=== PATIENT | male | born 1985 | race African-American/Black ===

== ENCOUNTER 2017-06-15 20:27 | Inpatient (IN) | payer OTHER ==
[~2017-06-15] VITALS: Ht 167.6 cm; Wt 54.4 kg
[~2017-06-15 20:27] MED LIST: Amiodarone 150mg/ml 3ml Amp ONE; Atropine Inj 1mg/10ml Syr ONE
[2017-06-15 20:30] VITALS: BP 147/98
[2017-06-15 20:54] LABS: HEMATOCRIT 53.5 % (42.0-52.0); HEMOGLOBIN 16.4 G/DL (14.2-18.0); MEAN CORPUSCULAR VOLUME 101 FL (80-99); PLATELET COUNT 309 K/UL (150-450); RED BLOOD COUNT 5.28 M/UL (4.70-6.10); RED CELL DISTRIBUTION WIDTH 10.9 % (11.6-14.8); WHITE BLOOD COUNT 15.6 K/UL (4.8-10.8)
[2017-06-15 21:04] LABS: INR 0.9 (0.9-1.1)
[2017-06-15 21:15] LABS: ALANINE AMINOTRANSFERASE 56 U/L (12-78); ALBUMIN 3.4 G/DL (3.4-5.0); ALBUMIN/GLOBULIN RATIO 0.9 (1.0-2.7); ALKALINE PHOSPHATASE 106 U/L (46-116); ASPARTATE AMINO TRANSFERASE 38 U/L (15-37); BILIRUBIN,TOTAL 0.6 MG/DL (0.2-1.0); BLOOD UREA NITROGEN 72 mg/dL (7-18); CALCIUM 8.5 MG/DL (8.5-10.1); CHLORIDE 81 MMOL/L (98-107); CKMB 3.5 NG/ML (0.0-3.6); CREATINE KINASE 266 U/L (26-308); CREATININE 2.7 MG/DL (0.55-1.30)
[2017-06-15 21:18] LABS: POTASSIUM 6.2 MMOL/L (3.5-5.1); SODIUM 119 MMOL/L (136-145)
[2017-06-15 21:19] LABS: CARBON DIOXIDE < 5 MMOL/L (21-32)
[2017-06-15 22:35] VITALS: BP 130/87
[2017-06-15] MEDS ORDERED: Azithromycin 500 MG in D5W 275 ML IVPB ONE (23:00)
[2017-06-15] MEDS ORDERED: cefTRIAXone 1 GM in NS 55 ML IVPB ONE (23:00)
[2017-06-16] VITALS (16 sets, daily range): BP systolic 82–144; BP diastolic 43–98
[2017-06-16 00:17] LABS: BILIRUBIN, URINE NEGATIVE (NEGATIVE); COLOR,URINE PALE YELLOW; GLUCOSE, URINE (UA) 4+ (NEGATIVE); KETONES,URINE 4+ (NEGATIVE); LEUKOCYTE ESTERASE ,URINE NEGATIVE (NEGATIVE); NITRITE,URINE NEGATIVE (NEGATIVE); PH,URINE 5 (4.5-8.0); PROTEIN,URINE 2+ (NEGATIVE); UROBILINOGEN,URINE NORMAL MG/DL (0.0-1.0)
[2017-06-16 00:36] LABS: APPEARANCE,URINE CLEAR
[2017-06-16] MEDS ORDERED: Morphine Sulfate 2mg/ml Inj IVP PRN ×2 (01:00→17:00)
[2017-06-16 01:05] LABS: ANION GAP 28 mmol/L (5-15); BLOOD UREA NITROGEN 69 mg/dL (7-18); CALCIUM 7.5 MG/DL (8.5-10.1); CHLORIDE 97 MMOL/L (98-107); CREATININE 2.4 MG/DL (0.55-1.30); POTASSIUM 5.4 MMOL/L (3.5-5.1); SODIUM 131 MMOL/L (136-145)
[2017-06-16 01:06] LABS: CARBON DIOXIDE 6 MMOL/L (21-32)
[2017-06-16] MEDS ORDERED: D5W 275ml ONE (01:15)
[2017-06-16] MEDS ORDERED: Azithromycin 500mg Inj IV ONE (01:15)
[2017-06-16] MEDS ORDERED: NS 55ml IV ONE (01:15)
--- NOTE | 2017-06-16 01:17 | Emergency Room Report ---
History of Present Illness General Chief Complaint: Abnormal Labs Source: Patient Present Illness HPI Patient presents emergency department today with weakness altered mental status and tachypnea. According to patient's family patient has a history of free diabetes. Otherwise there were no further history available. Patient apparently watches cars. Patient was noted to be very weak and not getting out of bed and very confused today. Patient was tachypnea. Paramedics were contacted and discovered the patient's sugar was critical high. Patient was started on fluid bolus.No other modifying factors. No other associated signs and symptoms. No other complaints were noted. Allergies: Coded Allergies: No Known Allergies (Unverified , 06/15/17) Patient History Past Medical History: none Past Surgical History: none Pertinent Family History: none Social History: Denies: smoking, alcohol use, drug use Reviewed Nursing Documentation: PMH: Agreed, PSxH: Agreed Nursing Documentation-PMH Past Medical History: No Stated History Review of Systems All Other Systems: negative except mentioned in HPI Physical Exam Vital Signs Date Time Temp Pulse Resp B/P (MAP) Pulse Ox O2 Delivery O2 Flow Rate FiO2 06/15/17 20:10 68 18 135/68 97 06/15/17 20:30 95.6 Room Air Sp02 EP Interpretation: reviewed, normal General Appearance: alert, severe distress, thin Head: atraumatic Eyes: bilateral eye normal inspection ENT: normal ENT inspection, hearing grossly normal, normal voice Neck: normal inspection, full range of motion, supple, no bony tend Respiratory: respiratory distress, decreased breath sounds, accessory muscle use Cardiovascular #1: no edema, tachycardia Gastrointestinal: normal inspection, normal bowel sounds, non tender, soft, no guarding, no hernia Genitourinary: no CVA tenderness Musculoskeletal: normal inspection, back normal, normal range of motion Neurologic: alert, responsive, other - slightly confused Psychiatric: normal inspection, judgement/insight normal, depressed affect Skin: normal inspection, normal color, no rash Procedures Critical Care Time Critical Care Time Patient had a critical medical condition which untreated could potentially result in life or limb threatening injury. Total critical care time excluding procedures was approximately 65 minutes. Medical Decision Making Diagnostic Impression: Primary Impression: DKA (diabetic ketoacidosis) Additional Impressions: Hyponatremia Respiratory distress Fever Pancreatitis Pneumonia Acidosis Elevated troponin ER Course Patient presents emergency department today with altered mental status elevated glucose and hyponatremia. Differential until diagnoses include pneumonia, DKA, severe acidosis, sepsis just to name a few. Patient laboratory workup shows severe DKA. Patient also had a fever therefore blood cultures were obtained patient start IV antibiotics. Patient's lactic acid level was negative. However because the patient's presentation patient receive 4 L normal saline bolus. Patient was also started on insulin drip. Case was discussed with Dr. Shekhar easley for admission to the intensive care unit. Patient's repeat chemistry show that the glucose is improving slowly. Labs Test 06/15/17 20:35 06/15/17 20:42 06/15/17 23:05 06/16/17 00:15 White Blood Count 15.6 K/UL (4.8-10.8) Red Blood Count 5.28 M/UL (4.70-6.10) Hemoglobin 16.4 G/DL (14.2-18.0) Hematocrit 53.5 % (42.0-52.0) Mean Corpuscular Volume 101 FL (80-99) Mean Corpuscular Hemoglobin 31.0 PG (27.0-31.0) Mean Corpuscular Hemoglobin Concent 30.6 G/DL (32.0-36.0) Red Cell Distribution Width 10.9 % (11.6-14.8) Platelet Count 309 K/UL (150-450) Mean Platelet Volume 7.0 FL (6.5-10.1) Neutrophils (%) (Auto) % (45.0-75.0) Lymphocytes (%) (Auto) % (20.0-45.0) Monocytes (%) (Auto) % (1.0-10.0) Eosinophils (%) (Auto) % (0.0-3.0) Basophils (%) (Auto) % (0.0-2.0) Differential Total Cells Counted 100 Neutrophils % (Manual) 85 % (45-75) Lymphocytes % (Manual) 10 % (20-45) Monocytes % (Manual) 3 % (1-10) Eosinophils % (Manual) 0 % (0-3) Basophils % (Manual) 0 % (0-2) Band Neutrophils 2 % (0-8) Nucleated Red Blood Cells 1 /100 WBC Platelet Estimate Adequate Platelet Morphology Normal Prothrombin Time 9.7 SEC (9.30-11.50) Prothromb Time International Ratio 0.9 (0.9-1.1) Activated Partial Thromboplast Time 33 SEC (23-33) Sodium Level 119 MMOL/L (136-145) 131 MMOL/L (136-145) Potassium Level 6.2 MMOL/L (3.5-5.1) 5.4 MMOL/L (3.5-5.1) Chloride Level 81 MMOL/L (98-107) 97 MMOL/L (98-107) Carbon Dioxide Level < 5 MMOL/L (21-32) 6 MMOL/L (21-32) Blood Urea Nitrogen 72 mg/dL (7-18) 69 mg/dL (7-18) Creatinine 2.7 MG/DL (0.55-1.30) 2.4 MG/DL (0.55-1.30) Estimat Glomerular Filtration Rate 27.9 mL/min (>60) 38.7 mL/min (>60) Glucose Level 1062 MG/DL (74-106) 725 MG/DL (74-106) Calcium Level 8.5 MG/DL (8.5-10.1) 7.5 MG/DL (8.5-10.1) Total Bilirubin 0.6 MG/DL (0.2-1.0) Aspartate Amino Transf (AST/SGOT) 38 U/L (15-37) Alanine Aminotransferase (ALT/SGPT) 56 U/L (12-78) Alkaline Phosphatase 106 U/L (46-116) Total Creatine Kinase 266 U/L (26-308) Creatine Kinase MB 3.5 NG/ML (0.0-3.6) Creatine Kinase MB Relative Index 1.3 Troponin I 0.076 ng/mL (0.000-0.056) Total Protein 7.4 G/DL (6.4-8.2) Albumin 3.4 G/DL (3.4-5.0) Globulin 4.0 g/dL Albumin/Globulin Ratio 0.9 (1.0-2.7) Lipase 4514 U/L (73-393) Urine Color Pale yellow Urine Appearance Clear Urine pH 5 (4.5-8.0) Urine Specific [place] 1.015 (1.005-1.035) Urine Protein 2+ (NEGATIVE) Urine Glucose (UA) 4+ (NEGATIVE) Urine Ketones 4+ (NEGATIVE) Urine Occult Blood 1+ (NEGATIVE) Urine Nitrite Negative (NEGATIVE) Urine Bilirubin Negative (NEGATIVE) Urine Urobilinogen Normal MG/DL (0.0-1.0) Urine Leukocyte Esterase Negative (NEGATIVE) Urine RBC 0-2 /HPF (0 - 0) Urine WBC 0-2 /HPF (0 - 0) Urine Squamous Epithelial Cells Occasional /LPF Urine Bacteria None /HPF (NONE) Urine Hyaline Casts 0-2 /LPF (NONE) Urine Coarse Granular Casts 0-2 /LPF (NONE) Urine Opiates Screen Negative (NEGATIVE) Urine Barbiturates Screen Negative (NEGATIVE) Phencyclidine (PCP) Screen Negative (NEGATIVE) Urine Amphetamines Screen Negative (NEGATIVE) Urine Benzodiazepines Screen Negative (NEGATIVE) Urine Cocaine Screen Negative (NEGATIVE) Urine Marijuana (THC) Screen Positive (NEGATIVE) Anion Gap 28 mmol/L (5-15) Lactic Acid Level 0.90 mmol/L (0.66-2.22) EKG Diagnostic Results Rate: normal Rhythm: NSR ST Segments: no acute changes Rhythm Strip Diag. Results EP Interpretation: yes Rate: 88 Rhythm: NSR, no PVC's, no ectopy Chest X-Ray Diagnostic Results Chest X-Ray Diagnostic Results : Chest X-Ray Ordered: Yes # of Views/Limited/Complete: 1 View Indication: Shortness of Breath EP Interpretation: Yes Interpretation: no effusion, no pneumothorax, other - bilateral infiltrate Impression: Other - pneumonia Electronically Signed by: Electronically signed by Marvin Fernandez MD Last Vital Signs Date Time Temp Pulse Resp B/P (MAP) Pulse Ox O2 Delivery O2 Flow Rate FiO2 06/15/17 20:30 95.6 87 17 147/98 99 Room Air Status: improved Disposition: ADMITTED INPATIENT Condition: Critical Referrals: NOT CHOSEN IPA/,REFERRING (PCP) MARVIN FERNANDEZ M.D. Jun 16, 2017 01:17
[2017-06-16] MEDS ORDERED: NS w/KCl 20mEq 1,000 ML IV SCH (02:30)
[2017-06-16] MEDS ORDERED: NKM (03:46)
[2017-06-16 05:06] LABS: ANION GAP 25 mmol/L (5-15); BLOOD UREA NITROGEN 63 mg/dL (7-18); CALCIUM 6.9 MG/DL (8.5-10.1); CHLORIDE 105 MMOL/L (98-107); POTASSIUM 4.2 MMOL/L (3.5-5.1); SODIUM 137 MMOL/L (136-145)
[2017-06-16 05:11] LABS: ALANINE AMINOTRANSFERASE 47 U/L (12-78); ALBUMIN 2.6 G/DL (3.4-5.0); ALBUMIN/GLOBULIN RATIO 0.8 (1.0-2.7); ALKALINE PHOSPHATASE 75 U/L (46-116); ASPARTATE AMINO TRANSFERASE 46 U/L (15-37); BILIRUBIN,TOTAL 0.3 MG/DL (0.2-1.0)
[2017-06-16 05:12] LABS: CARBON DIOXIDE 7 MMOL/L (21-32)
[2017-06-16 07:46] LABS: ANION GAP 21 mmol/L (5-15); BLOOD UREA NITROGEN 61 mg/dL (7-18); CALCIUM 7.2 MG/DL (8.5-10.1); CARBON DIOXIDE 11 MMOL/L (21-32); CHLORIDE 109 MMOL/L (98-107); CREATININE 1.9 MG/DL (0.55-1.30); POTASSIUM 4.2 MMOL/L (3.5-5.1); SODIUM 141 MMOL/L (136-145)
[2017-06-16 07:51] LABS: ALANINE AMINOTRANSFERASE 47 U/L (12-78); ALBUMIN 2.7 G/DL (3.4-5.0); ALBUMIN/GLOBULIN RATIO 0.8 (1.0-2.7); ALKALINE PHOSPHATASE 71 U/L (46-116); ASPARTATE AMINO TRANSFERASE 45 U/L (15-37); BILIRUBIN,TOTAL 0.3 MG/DL (0.2-1.0)
--- NOTE | 2017-06-16 08:10 | Emergency Room Report ---
History of Present Illness General Chief Complaint: Abnormal Labs Source: Family Member Present Illness Allergies: Coded Allergies: No Known Allergies (Unverified , 06/15/17) Nursing Documentation-[facility] Past Medical History: No History, Except For Physical Exam Vital Signs Date Time Temp Pulse Resp B/P (MAP) Pulse Ox O2 Delivery O2 Flow Rate FiO2 06/15/17 20:10 68 18 135/68 97 06/15/17 20:30 95.6 Room Air Procedures Critical Care Time Critical Care Time CC time 40min Critical care time endorsed for this patient for DKA and continued management while boarding in the ER. Critical care time includes review of laboratory tests, imaging, review of EMR, review of paperwork from SNF (if available), discussion with patient and family (if available), review of code status/POLS (if available). Critical care time also likely includes assessment of fluid status, stabilization of vital signs, selection and dosing of appropriate antibiotics, selection and dosing of Aspirin/Plavix/Heparin/Lovenox, discussion with PMD/ attending hospitalist/line decorator. Critical care time does not include any procedures which are documented elsewhere in this EMR. Medical Decision Making Diagnostic Impression: Primary Impression: DKA (diabetic ketoacidosis) Additional Impressions: Fever Acidosis Respiratory distress Hyponatremia Pancreatitis Elevated troponin Pneumonia ER Course Received signout from Dr Meza at 630am Repeated CMP and ABG Glucose downtrending from 473 to 264 AG from 25 to 21 On repeat ABG: pH improved from 6.8 to 7.28. AG closing from 25 to 21. Insulin gtt discontinued IVF continued Patient tolerating PO Downgraded to tele Informed Dr Godinez and YAHIR Pillai at 922am Last Vital Signs Date Time Temp Pulse Resp B/P (MAP) Pulse Ox O2 Delivery O2 Flow Rate FiO2 06/16/17 07:30 97.6 111 41 139/91 100 Room Air Status: improved Disposition: ADMITTED INPATIENT Condition: Serious Referrals: NOT CHOSEN IPA/,REFERRING (PCP) EJ FREED M.D. Jun 16, 2017 08:10
[2017-06-16] MEDS ORDERED: LORazepam Inj 2mg/ml 1ml IV ONE (09:45)
[2017-06-16] MEDS ORDERED: Haloperidol 5mg/ml Inj IM ONE (11:30)
--- NOTE | 2017-06-16 12:22 | History and Physical ---
History of Present Illness General Date patient seen: Jun 16, 2017 Reason for Hospitalization: Abnormal Labs Present Illness HPI 32 y/o male with PMH for borderline DM who presented to the ED with AMS. Patient is altered and unable to give me history. Patient's mother and brother at bedside states that he was not feeling well 2 days ago. Called paramedics but then was sent home. Now he presents back in DKA with BG over 1000. Patient is agitated and having severe chills. In the ED, patient was placed on insulin drip. He was also noted to be hyponatremic. Labs look better today but patient is still lethargic and having chills. Patient's lipase levels also profoundly elevated. Mother unable to tell me if recent EtOH use. He does occasionally drink EtOH and use marijuana. Allergies: Coded Allergies: No Known Allergies (Unverified , 06/15/17) Medication History Scheduled No Known Medications* (NKM - No Known Medications*), 0 ., (Reported) Patient History History Provided By: Family Member, Medical Record Healthcare decision maker Resuscitation status Advanced Directive on File Review of Systems ROS Narrative unable to obtain given patient's condition. Physical Exam General Appearance: WD/WN, confused, moderate distress, agitated HEENT: normocephalic, atraumatic Respiratory/Chest: lungs clear Cardiovascular/Chest: tachycardia Abdomen: non tender, soft Extremities: no edema Neurologic: disoriented Last 24 Hour Vital Signs Date Time Temp Pulse Resp B/P (MAP) Pulse Ox O2 Delivery O2 Flow Rate FiO2 06/16/17 10:52 119 21 124/68 100 Room Air 06/16/17 09:00 109 33 141/87 100 Room Air 06/16/17 07:30 97.6 111 41 139/91 100 Room Air 06/16/17 06:50 97.6 103 36 144/95 100 Room Air 06/16/17 05:15 97.8 105 39 118/80 99 Room Air 06/16/17 04:20 99 35 120/68 100 Room Air 06/16/17 02:20 100 36 111/64 100 Room Air 06/16/17 00:10 97.6 89 34 120/98 99 Room Air 06/15/17 22:35 90 35 130/87 100 Room Air 06/15/17 20:30 95.6 87 17 147/98 99 Room Air 06/15/17 20:10 68 18 135/68 97 Intake and Output 06/15/17 06/16/17 19:00 07:00 Intake Total 4325 ml Output Total 1300 ml Balance 3025 ml Intake IV Total 4325 ml Output Urine Total 1300 ml Laboratory Tests Test 06/15/17 20:35 06/15/17 20:42 06/15/17 23:05 06/16/17 00:15 White Blood Count 15.6 K/UL (4.8-10.8) H Red Blood Count 5.28 M/UL (4.70-6.10) Hemoglobin 16.4 G/DL (14.2-18.0) Hematocrit 53.5 % (42.0-52.0) H Mean Corpuscular Volume 101 FL (80-99) H Mean Corpuscular Hemoglobin 31.0 PG (27.0-31.0) Mean Corpuscular Hemoglobin Concent 30.6 G/DL (32.0-36.0) L Red Cell Distribution Width 10.9 % (11.6-14.8) L Platelet Count 309 K/UL (150-450) Mean Platelet Volume 7.0 FL (6.5-10.1) Neutrophils (%) (Auto) % (45.0-75.0) Lymphocytes (%) (Auto) % (20.0-45.0) Monocytes (%) (Auto) % (1.0-10.0) Eosinophils (%) (Auto) % (0.0-3.0) Basophils (%) (Auto) % (0.0-2.0) Differential Total Cells Counted 100 Neutrophils % (Manual) 85 % (45-75) H Lymphocytes % (Manual) 10 % (20-45) L Monocytes % (Manual) 3 % (1-10) Eosinophils % (Manual) 0 % (0-3) Basophils % (Manual) 0 % (0-2) Band Neutrophils 2 % (0-8) Nucleated Red Blood Cells 1 /100 WBC Platelet Estimate Adequate Platelet Morphology Normal Prothrombin Time 9.7 SEC (9.30-11.50) Prothromb Time International Ratio 0.9 (0.9-1.1) Activated Partial Thromboplast Time 33 SEC (23-33) Sodium Level 119 MMOL/L (136-145) *L 131 MMOL/L (136-145) #L Potassium Level 6.2 MMOL/L (3.5-5.1) *H 5.4 MMOL/L (3.5-5.1) H Chloride Level 81 MMOL/L (98-107) L 97 MMOL/L (98-107) L Carbon Dioxide Level < 5 MMOL/L (21-32) *L 6 MMOL/L (21-32) *L Blood Urea Nitrogen 72 mg/dL (7-18) H 69 mg/dL (7-18) H Creatinine 2.7 MG/DL (0.55-1.30) H 2.4 MG/DL (0.55-1.30) H Estimat Glomerular Filtration Rate 27.9 mL/min (>60) 38.7 mL/min (>60) Glucose Level 1062 MG/DL (74-106) *H 725 MG/DL (74-106) #*H Calcium Level 8.5 MG/DL (8.5-10.1) 7.5 MG/DL (8.5-10.1) L Total Bilirubin 0.6 MG/DL (0.2-1.0) Aspartate Amino Transf (AST/SGOT) 38 U/L (15-37) H Alanine Aminotransferase (ALT/SGPT) 56 U/L (12-78) Alkaline Phosphatase 106 U/L (46-116) Total Creatine Kinase 266 U/L (26-308) Creatine Kinase MB 3.5 NG/ML (0.0-3.6) Creatine Kinase MB Relative Index 1.3 Troponin I 0.076 ng/mL (0.000-0.056) Total Protein 7.4 G/DL (6.4-8.2) Albumin 3.4 G/DL (3.4-5.0) Globulin 4.0 g/dL Albumin/Globulin Ratio 0.9 (1.0-2.7) L Lipase 4514 U/L (73-393) H Venous Blood pH Pending Venous Blood Partial Pressure CO2 Pending Venous Blood Partial Pressure O2 Pending Venous Blood HCO3 Pending Venous Blood Total Carbon Dioxide Pending Venous Bld O2 Saturation (Measured) Pending Venous Blood Oxygen Saturation Pending Venous Blood Base Excess Pending Methemoglobin Pending Sodium (Blood Gas) Pending Urine Color Pale yellow Urine Appearance Clear Urine pH 5 (4.5-8.0) Urine Specific [place] 1.015 (1.005-1.035) Urine Protein 2+ (NEGATIVE) H Urine Glucose (UA) 4+ (NEGATIVE) H Urine Ketones 4+ (NEGATIVE) H Urine Occult Blood 1+ (NEGATIVE) H Urine Nitrite Negative (NEGATIVE) Urine Bilirubin Negative (NEGATIVE) Urine Urobilinogen Normal MG/DL (0.0-1.0) Urine Leukocyte Esterase Negative (NEGATIVE) Urine RBC 0-2 /HPF (0 - 0) H Urine WBC 0-2 /HPF (0 - 0) Urine Squamous Epithelial Cells Occasional /LPF Urine Bacteria None /HPF (NONE) Urine Hyaline Casts 0-2 /LPF (NONE) H Urine Coarse Granular Casts 0-2 /LPF (NONE) H Urine Opiates Screen Negative (NEGATIVE) Urine Barbiturates Screen Negative (NEGATIVE) Phencyclidine (PCP) Screen Negative (NEGATIVE) Urine Amphetamines Screen Negative (NEGATIVE) Urine Benzodiazepines Screen Negative (NEGATIVE) Urine Cocaine Screen Negative (NEGATIVE) Urine Marijuana (THC) Screen Positive (NEGATIVE) H Anion Gap 28 mmol/L (5-15) H Lactic Acid Level 0.90 mmol/L (0.66-2.22) Test 06/16/17 00:37 06/16/17 01:43 06/16/17 04:09 06/16/17 07:20 Venous Blood pH Pending Venous Blood Partial Pressure CO2 Pending Venous Blood Partial Pressure O2 Pending Venous Blood HCO3 Pending Venous Blood Total Carbon Dioxide Pending Venous Bld O2 Saturation (Measured) Pending Venous Blood Oxygen Saturation Pending Venous Blood Base Excess Pending Methemoglobin Pending Sodium (Blood Gas) Pending Arterial Blood pH 6.837 (7.350-7.450) Arterial Blood Partial Pressure CO2 24.6 mmHg (35.0-45.0) *L Arterial Blood Partial Pressure O2 34.2 mmHg (75.0-100.0) Arterial Blood HCO3 4.1 mmol/L (22.0-26.0) L Arterial Blood Oxygen Saturation 59.2 % (92.0-98.0) L Arterial Blood Base Excess -29.5 Juanito Test Positive Sodium Level 137 MMOL/L (136-145) 141 MMOL/L (136-145) Potassium Level 4.2 MMOL/L (3.5-5.1) 4.2 MMOL/L (3.5-5.1) Chloride Level 105 MMOL/L (98-107) 109 MMOL/L (98-107) H Carbon Dioxide Level 7 MMOL/L (21-32) *L 11 MMOL/L (21-32) L Anion Gap 25 mmol/L (5-15) H 21 mmol/L (5-15) H Blood Urea Nitrogen 63 mg/dL (7-18) H 61 mg/dL (7-18) H Creatinine 2.0 MG/DL (0.55-1.30) H 1.9 MG/DL (0.55-1.30) H Estimat Glomerular Filtration Rate 47.8 mL/min (>60) 50.7 mL/min (>60) Glucose Level 473 MG/DL (74-106) #H 264 MG/DL (74-106) #H Calcium Level 6.9 MG/DL (8.5-10.1) L 7.2 MG/DL (8.5-10.1) L Total Bilirubin 0.3 MG/DL (0.2-1.0) 0.3 MG/DL (0.2-1.0) Aspartate Amino Transf (AST/SGOT) 46 U/L (15-37) H 45 U/L (15-37) H Alanine Aminotransferase (ALT/SGPT) 47 U/L (12-78) 47 U/L (12-78) Alkaline Phosphatase 75 U/L (46-116) 71 U/L (46-116) Troponin I 0.100 ng/mL (0.000-0.056) Total Protein 5.8 G/DL (6.4-8.2) L 5.9 G/DL (6.4-8.2) L Albumin 2.6 G/DL (3.4-5.0) L 2.7 G/DL (3.4-5.0) L Globulin 3.2 g/dL 3.2 g/dL Albumin/Globulin Ratio 0.8 (1.0-2.7) L 0.8 (1.0-2.7) L Test 06/16/17 07:28 Arterial Blood pH 7.280 (7.350-7.450) Arterial Blood Partial Pressure CO2 20.9 mmHg (35.0-45.0) *L Arterial Blood Partial Pressure O2 54.2 mmHg (75.0-100.0) L Arterial Blood HCO3 9.0 mmol/L (22.0-26.0) L Arterial Blood Oxygen Saturation 90.4 % (92.0-98.0) L Arterial Blood Base Excess -15.8 Juanito Test Positive Height (Feet): 5 Height (Inches): 7.00 Weight (Pounds): 120 Medications Current Medications Medications (Trade) Dose Ordered Sig/Conrado Route PRN Reason Start Time Stop Time Status Last Admin Dose Admin Acetaminophen (Tylenol) 650 mg Q4H PRN ORAL Mild Pain (Pain Scale 1-3) 06/16/17 01:00 07/16/17 00:59 Dextrose (Dextrose 50%) STAT PRN IV Hypoglycemia 06/16/17 01:00 07/16/17 00:59 Insulin Human Regular 100 units/ Sodium Chloride 100 ml @ 6 mls/hr Q24H IV 06/15/17 20:45 07/15/17 20:44 06/15/17 22:15 Morphine Sulfate (Morphine Sulfate) 2 mg Q4HR PRN IVP Moderate Pain (Pain Scale 4-6) 06/16/17 01:00 06/23/17 00:59 Ondansetron HCl (Zofran) 4 mg Q6H PRN IVP Nausea & Vomiting 06/16/17 01:00 07/16/17 00:59 Pantoprazole (Protonix) 40 mg DAILY ORAL 06/16/17 09:00 07/16/17 08:59 06/16/17 09:38 Sodium Chloride 1,000 ml @ 100 mls/hr Q10H IVLG 06/16/17 01:46 07/16/17 01:45 06/16/17 01:37 Sodium Chloride 1,000 ml @ 200 mls/hr Q5H IV 06/16/17 02:30 07/16/17 02:29 06/16/17 03:00 Assessment/Plan Problem List: (1) DKA (diabetic ketoacidosis) ICD Codes: E13.10 - Other specified diabetes mellitus with ketoacidosis without coma SNOMED: 97893304, 198953158 (2) Elevated troponin ICD Codes: R74.8 - Abnormal levels of other serum enzymes SNOMED: 696212628, 310134402, 916275242 (3) Pancreatitis ICD Codes: K85.90 - Acute pancreatitis without necrosis or infection, unspecified SNOMED: 09808100 (4) Hyponatremia ICD Codes: E87.1 - Hypo-osmolality and hyponatremia SNOMED: 62045865 (5) Acidosis ICD Codes: E87.2 - Acidosis SNOMED: 93678920 (6) Respiratory distress ICD Codes: R06.03 - Acute respiratory distress SNOMED: 314218729 (7) Fever ICD Codes: R50.9 - Fever, unspecified SNOMED: 189655036 (8) Pneumonia ICD Codes: J18.9 - Pneumonia, unspecified organism SNOMED: 066522545, 893318644, 607718416 Assessment/Plan ID consult Dr. Cummings called. Follow up montes-culture. Check influenza. Empiric abx vancomycin and zosyn. IVF. NPO. Pain management. Dr. Arrington called for cardio. Check stat ecg. Stat cardiac enzymes. Transfer to [facility]. Start LEvemir and mod SSI. Accucheck q4h. D/w Dr. Matson. SOFIA HAYES Jun 16, 2017 12:22
[2017-06-16] MEDS ORDERED: LORazepam Inj 2mg/ml 1ml IV PRN (13:45)
[2017-06-16] MEDS ORDERED: FOLIC ACID IV SCH ×3 (13:45→17:30)
[2017-06-16] MEDS ORDERED: D5NS IV SCH ×2 (13:45→16:00)
[2017-06-16] MEDS ORDERED: THIAMINE HCL IV SCH ×3 (13:45→17:30)
--- NOTE | 2017-06-16 13:57 | Infectious Diseases Prog Note ---
Assessment/Plan Problems: (1) Pneumonia Assessment & Plan: with diffuse patchy infiltrates, will send sputum culture, continue vancomycin and zosyn empiric coverage. monitor CXR (2) Sepsis Assessment & Plan: due to the above, will send blood culture and continue vancomycin and zosyn (3) Pancreatitis Assessment & Plan: suspect due to alchol abuse, monitor lipase, keep npo, consult GI (4) DKA (diabetic ketoacidosis) Assessment & Plan: recommend insulin drip , and close monitor of blood glucose (5) Acidosis Assessment & Plan: due to the above , continue hydration (6) Alcohol withdrawal Assessment & Plan: recommend CIWA protocol and close monitor in tele Subjective Allergies: Coded Allergies: No Known Allergies (Unverified , 06/15/17) Objective Vital Signs Last 24 Hour Vital Signs Date Time Temp Pulse Resp B/P (MAP) Pulse Ox O2 Delivery O2 Flow Rate FiO2 06/16/17 10:52 119 21 124/68 100 Room Air 06/16/17 09:00 109 33 141/87 100 Room Air 06/16/17 07:30 97.6 111 41 139/91 100 Room Air 06/16/17 06:50 97.6 103 36 144/95 100 Room Air 06/16/17 05:15 97.8 105 39 118/80 99 Room Air 06/16/17 04:20 99 35 120/68 100 Room Air 06/16/17 02:20 100 36 111/64 100 Room Air 06/16/17 00:10 97.6 89 34 120/98 99 Room Air 06/15/17 22:35 90 35 130/87 100 Room Air 06/15/17 20:30 95.6 87 17 147/98 99 Room Air 06/15/17 20:10 68 18 135/68 97 Height (Feet): 5 Height (Inches): 7.00 Weight (Pounds): 120 Laboratory Tests Test 06/15/17 20:35 06/15/17 20:42 06/15/17 23:05 06/16/17 00:15 White Blood Count 15.6 K/UL (4.8-10.8) H Red Blood Count 5.28 M/UL (4.70-6.10) Hemoglobin 16.4 G/DL (14.2-18.0) Hematocrit 53.5 % (42.0-52.0) H Mean Corpuscular Volume 101 FL (80-99) H Mean Corpuscular Hemoglobin 31.0 PG (27.0-31.0) Mean Corpuscular Hemoglobin Concent 30.6 G/DL (32.0-36.0) L Red Cell Distribution Width 10.9 % (11.6-14.8) L Platelet Count 309 K/UL (150-450) Mean Platelet Volume 7.0 FL (6.5-10.1) Neutrophils (%) (Auto) % (45.0-75.0) Lymphocytes (%) (Auto) % (20.0-45.0) Monocytes (%) (Auto) % (1.0-10.0) Eosinophils (%) (Auto) % (0.0-3.0) Basophils (%) (Auto) % (0.0-2.0) Differential Total Cells Counted 100 Neutrophils % (Manual) 85 % (45-75) H Lymphocytes % (Manual) 10 % (20-45) L Monocytes % (Manual) 3 % (1-10) Eosinophils % (Manual) 0 % (0-3) Basophils % (Manual) 0 % (0-2) Band Neutrophils 2 % (0-8) Nucleated Red Blood Cells 1 /100 WBC Platelet Estimate Adequate Platelet Morphology Normal Prothrombin Time 9.7 SEC (9.30-11.50) Prothromb Time International Ratio 0.9 (0.9-1.1) Activated Partial Thromboplast Time 33 SEC (23-33) Sodium Level 119 MMOL/L (136-145) *L 131 MMOL/L (136-145) #L Potassium Level 6.2 MMOL/L (3.5-5.1) *H 5.4 MMOL/L (3.5-5.1) H Chloride Level 81 MMOL/L (98-107) L 97 MMOL/L (98-107) L Carbon Dioxide Level < 5 MMOL/L (21-32) *L 6 MMOL/L (21-32) *L Blood Urea Nitrogen 72 mg/dL (7-18) H 69 mg/dL (7-18) H Creatinine 2.7 MG/DL (0.55-1.30) H 2.4 MG/DL (0.55-1.30) H Estimat Glomerular Filtration Rate 27.9 mL/min (>60) 38.7 mL/min (>60) Glucose Level 1062 MG/DL (74-106) *H 725 MG/DL (74-106) #*H Calcium Level 8.5 MG/DL (8.5-10.1) 7.5 MG/DL (8.5-10.1) L Total Bilirubin 0.6 MG/DL (0.2-1.0) Aspartate Amino Transf (AST/SGOT) 38 U/L (15-37) H Alanine Aminotransferase (ALT/SGPT) 56 U/L (12-78) Alkaline Phosphatase 106 U/L (46-116) Total Creatine Kinase 266 U/L (26-308) Creatine Kinase MB 3.5 NG/ML (0.0-3.6) Creatine Kinase MB Relative Index 1.3 Troponin I 0.076 ng/mL (0.000-0.056) Total Protein 7.4 G/DL (6.4-8.2) Albumin 3.4 G/DL (3.4-5.0) Globulin 4.0 g/dL Albumin/Globulin Ratio 0.9 (1.0-2.7) L Lipase 4514 U/L (73-393) H Venous Blood pH Pending Venous Blood Partial Pressure CO2 Pending Venous Blood Partial Pressure O2 Pending Venous Blood HCO3 Pending Venous Blood Total Carbon Dioxide Pending Venous Bld O2 Saturation (Measured) Pending Venous Blood Oxygen Saturation Pending Venous Blood Base Excess Pending Methemoglobin Pending Sodium (Blood Gas) Pending Urine Color Pale yellow Urine Appearance Clear Urine pH 5 (4.5-8.0) Urine Specific [place] 1.015 (1.005-1.035) Urine Protein 2+ (NEGATIVE) H Urine Glucose (UA) 4+ (NEGATIVE) H Urine Ketones 4+ (NEGATIVE) H Urine Occult Blood 1+ (NEGATIVE) H Urine Nitrite Negative (NEGATIVE) Urine Bilirubin Negative (NEGATIVE) Urine Urobilinogen Normal MG/DL (0.0-1.0) Urine Leukocyte Esterase Negative (NEGATIVE) Urine RBC 0-2 /HPF (0 - 0) H Urine WBC 0-2 /HPF (0 - 0) Urine Squamous Epithelial Cells Occasional /LPF Urine Bacteria None /HPF (NONE) Urine Hyaline Casts 0-2 /LPF (NONE) H Urine Coarse Granular Casts 0-2 /LPF (NONE) H Urine Opiates Screen Negative (NEGATIVE) Urine Barbiturates Screen Negative (NEGATIVE) Phencyclidine (PCP) Screen Negative (NEGATIVE) Urine Amphetamines Screen Negative (NEGATIVE) Urine Benzodiazepines Screen Negative (NEGATIVE) Urine Cocaine Screen Negative (NEGATIVE) Urine Marijuana (THC) Screen Positive (NEGATIVE) H Anion Gap 28 mmol/L (5-15) H Lactic Acid Level 0.90 mmol/L (0.66-2.22) Test 06/16/17 00:37 06/16/17 01:43 06/16/17 04:09 06/16/17 07:20 Venous Blood pH Pending Venous Blood Partial Pressure CO2 Pending Venous Blood Partial Pressure O2 Pending Venous Blood HCO3 Pending Venous Blood Total Carbon Dioxide Pending Venous Bld O2 Saturation (Measured) Pending Venous Blood Oxygen Saturation Pending Venous Blood Base Excess Pending Methemoglobin Pending Sodium (Blood Gas) Pending Arterial Blood pH 6.837 (7.350-7.450) Arterial Blood Partial Pressure CO2 24.6 mmHg (35.0-45.0) *L Arterial Blood Partial Pressure O2 34.2 mmHg (75.0-100.0) Arterial Blood HCO3 4.1 mmol/L (22.0-26.0) L Arterial Blood Oxygen Saturation 59.2 % (92.0-98.0) L Arterial Blood Base Excess -29.5 Juanito Test Positive Sodium Level 137 MMOL/L (136-145) 141 MMOL/L (136-145) Potassium Level 4.2 MMOL/L (3.5-5.1) 4.2 MMOL/L (3.5-5.1) Chloride Level 105 MMOL/L (98-107) 109 MMOL/L (98-107) H Carbon Dioxide Level 7 MMOL/L (21-32) *L 11 MMOL/L (21-32) L Anion Gap 25 mmol/L (5-15) H 21 mmol/L (5-15) H Blood Urea Nitrogen 63 mg/dL (7-18) H 61 mg/dL (7-18) H Creatinine 2.0 MG/DL (0.55-1.30) H 1.9 MG/DL (0.55-1.30) H Estimat Glomerular Filtration Rate 47.8 mL/min (>60) 50.7 mL/min (>60) Glucose Level 473 MG/DL (74-106) #H 264 MG/DL (74-106) #H Calcium Level 6.9 MG/DL (8.5-10.1) L 7.2 MG/DL (8.5-10.1) L Total Bilirubin 0.3 MG/DL (0.2-1.0) 0.3 MG/DL (0.2-1.0) Aspartate Amino Transf (AST/SGOT) 46 U/L (15-37) H 45 U/L (15-37) H Alanine Aminotransferase (ALT/SGPT) 47 U/L (12-78) 47 U/L (12-78) Alkaline Phosphatase 75 U/L (46-116) 71 U/L (46-116) Troponin I 0.100 ng/mL (0.000-0.056) Total Protein 5.8 G/DL (6.4-8.2) L 5.9 G/DL (6.4-8.2) L Albumin 2.6 G/DL (3.4-5.0) L 2.7 G/DL (3.4-5.0) L Globulin 3.2 g/dL 3.2 g/dL Albumin/Globulin Ratio 0.8 (1.0-2.7) L 0.8 (1.0-2.7) L Test 06/16/17 07:28 06/16/17 11:33 Arterial Blood pH 7.280 (7.350-7.450) Arterial Blood Partial Pressure CO2 20.9 mmHg (35.0-45.0) *L Arterial Blood Partial Pressure O2 54.2 mmHg (75.0-100.0) L Arterial Blood HCO3 9.0 mmol/L (22.0-26.0) L Arterial Blood Oxygen Saturation 90.4 % (92.0-98.0) L Arterial Blood Base Excess -15.8 Juanito Test Positive Troponin I Pending Current Medications Medications (Trade) Dose Ordered Sig/Conrado Route PRN Reason Start Time Stop Time Status Last Admin Dose Admin Acetaminophen (Tylenol) 650 mg Q4H PRN ORAL Mild Pain (Pain Scale 1-3) 06/16/17 01:00 07/16/17 00:59 Dextrose (Dextrose 50%) STAT PRN IV Hypoglycemia 06/16/17 01:00 07/16/17 00:59 Insulin Human Regular 100 units/ Sodium Chloride 100 ml @ 6 mls/hr Q24H IV 06/15/17 20:45 07/15/17 20:44 06/15/17 22:15 Morphine Sulfate (Morphine Sulfate) 2 mg Q4HR PRN IVP Moderate Pain (Pain Scale 4-6) 06/16/17 01:00 06/23/17 00:59 Ondansetron HCl (Zofran) 4 mg Q6H PRN IVP Nausea & Vomiting 06/16/17 01:00 07/16/17 00:59 Pantoprazole (Protonix) 40 mg DAILY ORAL 06/16/17 09:00 07/16/17 08:59 06/16/17 09:38 Piperacillin Sod/ Tazobactam Sod 3.375 gm/Dextrose 110 ml @ 27.5 mls/hr EVERY 8 HOURS IVPB 06/16/17 14:00 06/21/17 13:59 UNV Sodium Chloride 1,000 ml @ 100 mls/hr Q10H IVLG 06/16/17 01:46 07/16/17 01:45 06/16/17 01:37 Sodium Chloride 1,000 ml @ 200 mls/hr Q5H IV 06/16/17 02:30 07/16/17 02:29 06/16/17 03:00 Vancomycin HCl (Vanco rx to dose) 1 ea DAILY PRN MISC Per rx protocol 06/16/17 13:30 07/16/17 13:29 Saad Al M.D. Jun 16, 2017 13:57
[2017-06-16] MEDS ORDERED: Piperacillin/Tazobactam 3.375 GM in D5W 110 ML IVPB SCH (14:30)
--- NOTE | 2017-06-16 14:37 | Cardiac Electrophysiology PN ---
Subjective Subjective [id number] Objective Last 24 Hour Vital Signs Date Time Temp Pulse Resp B/P (MAP) Pulse Ox O2 Delivery O2 Flow Rate FiO2 06/16/17 10:52 119 21 124/68 100 Room Air 06/16/17 09:00 109 33 141/87 100 Room Air 06/16/17 07:30 97.6 111 41 139/91 100 Room Air 06/16/17 06:50 97.6 103 36 144/95 100 Room Air 06/16/17 05:15 97.8 105 39 118/80 99 Room Air 06/16/17 04:20 99 35 120/68 100 Room Air 06/16/17 02:20 100 36 111/64 100 Room Air 06/16/17 00:10 97.6 89 34 120/98 99 Room Air 06/15/17 22:35 90 35 130/87 100 Room Air 06/15/17 20:30 95.6 87 17 147/98 99 Room Air 06/15/17 20:10 68 18 135/68 97 Intake and Output 06/15/17 06/16/17 19:00 07:00 Intake Total 4325 ml Output Total 1300 ml Balance 3025 ml Intake IV Total 4325 ml Output Urine Total 1300 ml Laboratory Tests Test 06/15/17 20:35 06/15/17 20:42 06/15/17 23:05 06/16/17 00:15 White Blood Count 15.6 K/UL (4.8-10.8) H Red Blood Count 5.28 M/UL (4.70-6.10) Hemoglobin 16.4 G/DL (14.2-18.0) Hematocrit 53.5 % (42.0-52.0) H Mean Corpuscular Volume 101 FL (80-99) H Mean Corpuscular Hemoglobin 31.0 PG (27.0-31.0) Mean Corpuscular Hemoglobin Concent 30.6 G/DL (32.0-36.0) L Red Cell Distribution Width 10.9 % (11.6-14.8) L Platelet Count 309 K/UL (150-450) Mean Platelet Volume 7.0 FL (6.5-10.1) Neutrophils (%) (Auto) % (45.0-75.0) Lymphocytes (%) (Auto) % (20.0-45.0) Monocytes (%) (Auto) % (1.0-10.0) Eosinophils (%) (Auto) % (0.0-3.0) Basophils (%) (Auto) % (0.0-2.0) Differential Total Cells Counted 100 Neutrophils % (Manual) 85 % (45-75) H Lymphocytes % (Manual) 10 % (20-45) L Monocytes % (Manual) 3 % (1-10) Eosinophils % (Manual) 0 % (0-3) Basophils % (Manual) 0 % (0-2) Band Neutrophils 2 % (0-8) Nucleated Red Blood Cells 1 /100 WBC Platelet Estimate Adequate Platelet Morphology Normal Prothrombin Time 9.7 SEC (9.30-11.50) Prothromb Time International Ratio 0.9 (0.9-1.1) Activated Partial Thromboplast Time 33 SEC (23-33) Sodium Level 119 MMOL/L (136-145) *L 131 MMOL/L (136-145) #L Potassium Level 6.2 MMOL/L (3.5-5.1) *H 5.4 MMOL/L (3.5-5.1) H Chloride Level 81 MMOL/L (98-107) L 97 MMOL/L (98-107) L Carbon Dioxide Level < 5 MMOL/L (21-32) *L 6 MMOL/L (21-32) *L Blood Urea Nitrogen 72 mg/dL (7-18) H 69 mg/dL (7-18) H Creatinine 2.7 MG/DL (0.55-1.30) H 2.4 MG/DL (0.55-1.30) H Estimat Glomerular Filtration Rate 27.9 mL/min (>60) 38.7 mL/min (>60) Glucose Level 1062 MG/DL (74-106) *H 725 MG/DL (74-106) #*H Calcium Level 8.5 MG/DL (8.5-10.1) 7.5 MG/DL (8.5-10.1) L Total Bilirubin 0.6 MG/DL (0.2-1.0) Aspartate Amino Transf (AST/SGOT) 38 U/L (15-37) H Alanine Aminotransferase (ALT/SGPT) 56 U/L (12-78) Alkaline Phosphatase 106 U/L (46-116) Total Creatine Kinase 266 U/L (26-308) Creatine Kinase MB 3.5 NG/ML (0.0-3.6) Creatine Kinase MB Relative Index 1.3 Troponin I 0.076 ng/mL (0.000-0.056) Total Protein 7.4 G/DL (6.4-8.2) Albumin 3.4 G/DL (3.4-5.0) Globulin 4.0 g/dL Albumin/Globulin Ratio 0.9 (1.0-2.7) L Lipase 4514 U/L (73-393) H Venous Blood pH Pending Venous Blood Partial Pressure CO2 Pending Venous Blood Partial Pressure O2 Pending Venous Blood HCO3 Pending Venous Blood Total Carbon Dioxide Pending Venous Bld O2 Saturation (Measured) Pending Venous Blood Oxygen Saturation Pending Venous Blood Base Excess Pending Methemoglobin Pending Sodium (Blood Gas) Pending Urine Color Pale yellow Urine Appearance Clear Urine pH 5 (4.5-8.0) Urine Specific [place] 1.015 (1.005-1.035) Urine Protein 2+ (NEGATIVE) H Urine Glucose (UA) 4+ (NEGATIVE) H Urine Ketones 4+ (NEGATIVE) H Urine Occult Blood 1+ (NEGATIVE) H Urine Nitrite Negative (NEGATIVE) Urine Bilirubin Negative (NEGATIVE) Urine Urobilinogen Normal MG/DL (0.0-1.0) Urine Leukocyte Esterase Negative (NEGATIVE) Urine RBC 0-2 /HPF (0 - 0) H Urine WBC 0-2 /HPF (0 - 0) Urine Squamous Epithelial Cells Occasional /LPF Urine Bacteria None /HPF (NONE) Urine Hyaline Casts 0-2 /LPF (NONE) H Urine Coarse Granular Casts 0-2 /LPF (NONE) H Urine Opiates Screen Negative (NEGATIVE) Urine Barbiturates Screen Negative (NEGATIVE) Phencyclidine (PCP) Screen Negative (NEGATIVE) Urine Amphetamines Screen Negative (NEGATIVE) Urine Benzodiazepines Screen Negative (NEGATIVE) Urine Cocaine Screen Negative (NEGATIVE) Urine Marijuana (THC) Screen Positive (NEGATIVE) H Anion Gap 28 mmol/L (5-15) H Lactic Acid Level 0.90 mmol/L (0.66-2.22) Test 06/16/17 00:37 06/16/17 01:43 06/16/17 04:09 06/16/17 07:20 Venous Blood pH Pending Venous Blood Partial Pressure CO2 Pending Venous Blood Partial Pressure O2 Pending Venous Blood HCO3 Pending Venous Blood Total Carbon Dioxide Pending Venous Bld O2 Saturation (Measured) Pending Venous Blood Oxygen Saturation Pending Venous Blood Base Excess Pending Methemoglobin Pending Sodium (Blood Gas) Pending Arterial Blood pH 6.837 (7.350-7.450) Arterial Blood Partial Pressure CO2 24.6 mmHg (35.0-45.0) *L Arterial Blood Partial Pressure O2 34.2 mmHg (75.0-100.0) Arterial Blood HCO3 4.1 mmol/L (22.0-26.0) L Arterial Blood Oxygen Saturation 59.2 % (92.0-98.0) L Arterial Blood Base Excess -29.5 Juanito Test Positive Sodium Level 137 MMOL/L (136-145) 141 MMOL/L (136-145) Potassium Level 4.2 MMOL/L (3.5-5.1) 4.2 MMOL/L (3.5-5.1) Chloride Level 105 MMOL/L (98-107) 109 MMOL/L (98-107) H Carbon Dioxide Level 7 MMOL/L (21-32) *L 11 MMOL/L (21-32) L Anion Gap 25 mmol/L (5-15) H 21 mmol/L (5-15) H Blood Urea Nitrogen 63 mg/dL (7-18) H 61 mg/dL (7-18) H Creatinine 2.0 MG/DL (0.55-1.30) H 1.9 MG/DL (0.55-1.30) H Estimat Glomerular Filtration Rate 47.8 mL/min (>60) 50.7 mL/min (>60) Glucose Level 473 MG/DL (74-106) #H 264 MG/DL (74-106) #H Calcium Level 6.9 MG/DL (8.5-10.1) L 7.2 MG/DL (8.5-10.1) L Total Bilirubin 0.3 MG/DL (0.2-1.0) 0.3 MG/DL (0.2-1.0) Aspartate Amino Transf (AST/SGOT) 46 U/L (15-37) H 45 U/L (15-37) H Alanine Aminotransferase (ALT/SGPT) 47 U/L (12-78) 47 U/L (12-78) Alkaline Phosphatase 75 U/L (46-116) 71 U/L (46-116) Troponin I 0.100 ng/mL (0.000-0.056) Total Protein 5.8 G/DL (6.4-8.2) L 5.9 G/DL (6.4-8.2) L Albumin 2.6 G/DL (3.4-5.0) L 2.7 G/DL (3.4-5.0) L Globulin 3.2 g/dL 3.2 g/dL Albumin/Globulin Ratio 0.8 (1.0-2.7) L 0.8 (1.0-2.7) L Test 06/16/17 07:28 06/16/17 11:33 Arterial Blood pH 7.280 (7.350-7.450) Arterial Blood Partial Pressure CO2 20.9 mmHg (35.0-45.0) *L Arterial Blood Partial Pressure O2 54.2 mmHg (75.0-100.0) L Arterial Blood HCO3 9.0 mmol/L (22.0-26.0) L Arterial Blood Oxygen Saturation 90.4 % (92.0-98.0) L Arterial Blood Base Excess -15.8 Juanito Test Positive Troponin I 0.164 ng/mL (0.000-0.056) ALBERT ROWAN Jun 16, 2017 14:37
[2017-06-16] MEDS ORDERED: Vancomycin 750mg/NS 250ml IVPB SCH (15:00)
--- NOTE | 2017-06-16 15:14 | Emergency Room Report ---
Physical Exam Code blue called. Admitted with DKA. Yusuf then asystole. Patient asystolic Last 24 Hour Vital Signs Date Time Temp Pulse Resp B/P (MAP) Pulse Ox O2 Delivery O2 Flow Rate FiO2 06/16/17 10:52 119 21 124/68 100 Room Air 06/16/17 09:00 109 33 141/87 100 Room Air 06/16/17 07:30 97.6 111 41 139/91 100 Room Air 06/16/17 06:50 97.6 103 36 144/95 100 Room Air 06/16/17 05:15 97.8 105 39 118/80 99 Room Air 06/16/17 04:20 99 35 120/68 100 Room Air 06/16/17 02:20 100 36 111/64 100 Room Air 06/16/17 00:10 97.6 89 34 120/98 99 Room Air 06/15/17 22:35 90 35 130/87 100 Room Air 06/15/17 20:30 95.6 87 17 147/98 99 Room Air 06/15/17 20:10 68 18 135/68 97 Sp02 EP Interpretation: reviewed, normal General Appearance: other - unresponsive, ill appearing Head: normocephalic, atraumatic Eyes: bilateral eye other - eyes closed ENT: moist mucus membranes Neck: supple Respiratory: rhonchi - assisted vents with BVM Cardiovascular #1: other - pulses with CPR Cardiovascular #2: 2+ femoral (R) Gastrointestinal: decreased bowel sounds, scaphoid Genitourinary: other - carpenter Neurologic: other - flaccid Psychiatric: other - stupor Skin: other - cool extrem CPR/Code Blue CPR/Code Blue Narrative Code called 14:50. CPR supervised by me in progress with pulses. Asystolic. Epi 1 amp. Yusuf with pulses 14:52. Bicarb 1 amp. ABG by me R femoral. Pulses increased with ST. Intubated 7.5 BS at 23 cm. Spontaneous resps, still not respond to painful stim. Transfer to ICU. Intubation Intubation : Consent: Emergent Intubation Method: orotracheal Tube Size (cm): 7.5 Medications: Other - none Breath Sounds after Intubation: equal Intubation Complications: no complications Post Intubation Xray: Yes Attempts: One Patient Tolerated: Well Complications: None Medical Decision Making Diagnostic Impression: Primary Impression: DKA (diabetic ketoacidosis) Qualified Codes: E10.11 - Type 1 diabetes mellitus with ketoacidosis with coma Additional Impressions: Cardiopulmonary arrest Pneumonia Qualified Codes: J18.9 - Pneumonia, unspecified organism ER Course Patient was asystolic arrest it was witnessed. CPR was performed an supervised by me. The patient was intubated after epinephrine 1 mg was given. There were breath sounds bilaterally and color change with the CO2 monitor. The patient had pulses after the first dose of epinephrine. Prior bicarb was 9 and pH was 7.2 and 1 amp of bicarbonate was given. Heart rate improved after the bicarbonate. Blood gases obtained by me. Accucheck was 426. CXR, Vent and IV hydration ordered. CXR with ET good placement with bilat infiltrates L>R. Discussed with family (brother present during code). ABG: post intubation - 6.95/38 CO2/154 O2/8 HCO3 Rhythm Strip Diag. Results EP Interpretation: yes Rhythm: other - asystole, yusuf/junctional then ST with ectopy HR 127 Chest X-Ray Diagnostic Results Chest X-Ray Diagnostic Results : Chest X-Ray Ordered: Yes # of Views/Limited/Complete: 1 View Indication: Other EP Interpretation: Yes Interpretation: no effusion, no pneumothorax, other - infiltrates, ET good position Impression: Other Electronically Signed by: Jesus Pizarro MD Last Vital Signs Date Time Temp Pulse Resp B/P (MAP) Pulse Ox O2 Delivery O2 Flow Rate FiO2 06/16/17 10:52 119 21 124/68 100 Room Air 06/16/17 07:30 97.6 Status: improved Disposition: ADMITTED INPATIENT Condition: Critical Referrals: NOT CHOSEN IPA/,REFERRING (PCP) Jesus Pizarro M.D. Jun 16, 2017 15:14
[2017-06-16 15:19] LABS: CREATINE KINASE 1394 U/L (26-308)
--- NOTE | 2017-06-16 16:09 | General Progress Note ---
Progress Note Progress Note Coded due to respiratory failure and bradycardia and brought to ICU after intubation. Coded again in ICU for bradycardia with HR going down to 20-30s. Received Atropine 0.5 and Epi. ER at [facility] . ALBERT ROWAN Jun 16, 2017 16:09
[2017-06-16] MEDS ORDERED: Atropine Sulfate 1mg Inj IVP PRN (16:15)
[2017-06-16] MEDS ORDERED: FOLIC ACID IV ONE ×2 (16:30→17:00)
[2017-06-16] MEDS ORDERED: THIAMINE HCL IV ONE ×2 (16:30→17:00)
[2017-06-16] MEDS ORDERED: NovoLOG Insulin Flexpen SUBQ SCH ×2 (16:30)
[2017-06-16] MEDS ORDERED: D5NS IV ONE ×2 (16:30→17:00)
--- NOTE | 2017-06-16 16:30 | Emergency Room Report ---
Physical Exam Second code clark was called in ICU. Bradycardia then asystole. Epi and atropine given. CPR in progress. Prior ABG with severe acidosis. Last 24 Hour Vital Signs Date Time Temp Pulse Resp B/P (MAP) Pulse Ox O2 Delivery O2 Flow Rate FiO2 06/16/17 15:52 95 06/16/17 15:48 100 06/16/17 15:33 112 45 Mechanical Ventilator 100 06/16/17 15:26 118 48 100 06/16/17 12:30 97.6 119 21 124/68 100 Room Air 06/16/17 10:52 119 21 124/68 100 Room Air 06/16/17 09:00 109 33 141/87 100 Room Air 06/16/17 07:30 97.6 111 41 139/91 100 Room Air 06/16/17 06:50 97.6 103 36 144/95 100 Room Air 06/16/17 05:15 97.8 105 39 118/80 99 Room Air 06/16/17 04:20 99 35 120/68 100 Room Air 06/16/17 02:20 100 36 111/64 100 Room Air 06/16/17 00:10 97.6 89 34 120/98 99 Room Air 06/15/17 22:35 90 35 130/87 100 Room Air 06/15/17 20:30 95.6 87 17 147/98 99 Room Air 06/15/17 20:10 68 18 135/68 97 Sp02 EP Interpretation: reviewed, normal General Appearance: other - unresponsive Head: normocephalic, atraumatic Eyes: bilateral eye other - eyes closed ENT: other - ET tube present Neck: other - flaccid Respiratory: crackles, other - bilat BS equal Cardiovascular #1: other - pulses with CPR Cardiovascular #2: 2+ femoral (R) Gastrointestinal: decreased bowel sounds Genitourinary: other - carpenter Musculoskeletal: other - no deform Neurologic: other - flaccid Psychiatric: other - unresponsive Skin: other - cool CPR/Code Blue CPR/Code Blue Narrative Code called at 16:05 16:08 ST when I arrived and CPR under process with good pulses. 2 amps bicarb given Hydration ordered begun. Requested labs. Vent settings with hyperventilation. ABG ordered 20 min on vent. Discussed again with family. Medical Decision Making Diagnostic Impression: Primary Impression: DKA (diabetic ketoacidosis) Qualified Codes: E10.11 - Type 1 diabetes mellitus with ketoacidosis with coma Additional Impressions: Cardiopulmonary arrest Metabolic acidosis ER Course Second Code Blue. Pulses after epi and atropine. Bicarb given (from previous ABG). Vent settings ordered. ABG on vent 7.17/30 CO2/60 O2/ 11 HCO3. FIO2 increased. Laboratory Tests Test 06/15/17 20:35 06/15/17 20:42 06/15/17 23:05 06/16/17 00:15 White Blood Count 15.6 K/UL (4.8-10.8) H Red Blood Count 5.28 M/UL (4.70-6.10) Hemoglobin 16.4 G/DL (14.2-18.0) Hematocrit 53.5 % (42.0-52.0) H Mean Corpuscular Volume 101 FL (80-99) H Mean Corpuscular Hemoglobin 31.0 PG (27.0-31.0) Mean Corpuscular Hemoglobin Concent 30.6 G/DL (32.0-36.0) L Red Cell Distribution Width 10.9 % (11.6-14.8) L Platelet Count 309 K/UL (150-450) Mean Platelet Volume 7.0 FL (6.5-10.1) Neutrophils (%) (Auto) % (45.0-75.0) Lymphocytes (%) (Auto) % (20.0-45.0) Monocytes (%) (Auto) % (1.0-10.0) Eosinophils (%) (Auto) % (0.0-3.0) Basophils (%) (Auto) % (0.0-2.0) Differential Total Cells Counted 100 Neutrophils % (Manual) 85 % (45-75) H Lymphocytes % (Manual) 10 % (20-45) L Monocytes % (Manual) 3 % (1-10) Eosinophils % (Manual) 0 % (0-3) Basophils % (Manual) 0 % (0-2) Band Neutrophils 2 % (0-8) Nucleated Red Blood Cells 1 /100 WBC Platelet Estimate Adequate Platelet Morphology Normal Prothrombin Time 9.7 SEC (9.30-11.50) Prothrombin Time INR 0.9 (0.9-1.1) PTT 33 SEC (23-33) Sodium Level 119 MMOL/L (136-145) *L 131 MMOL/L (136-145) #L Potassium Level 6.2 MMOL/L (3.5-5.1) *H 5.4 MMOL/L (3.5-5.1) H Chloride Level 81 MMOL/L (98-107) L 97 MMOL/L (98-107) L Carbon Dioxide Level < 5 MMOL/L (21-32) *L 6 MMOL/L (21-32) *L Blood Urea Nitrogen 72 mg/dL (7-18) H 69 mg/dL (7-18) H Creatinine 2.7 MG/DL (0.55-1.30) H 2.4 MG/DL (0.55-1.30) H Estimate Glomerular Filtration Rate 27.9 mL/min (>60) 38.7 mL/min (>60) Glucose Level 1062 MG/DL (74-106) *H 725 MG/DL (74-106) #*H Calcium Level 8.5 MG/DL (8.5-10.1) 7.5 MG/DL (8.5-10.1) L Total Bilirubin 0.6 MG/DL (0.2-1.0) Aspartate Amino Transferase (AST) 38 U/L (15-37) H Alanine Aminotransferase (ALT) 56 U/L (12-78) Alkaline Phosphatase 106 U/L (46-116) Total Creatine Kinase 266 U/L (26-308) Creatine Kinase MB 3.5 NG/ML (0.0-3.6) Creatine Kinase MB Relative Index 1.3 Troponin I 0.076 ng/mL (0.000-0.056) Total Protein 7.4 G/DL (6.4-8.2) Albumin 3.4 G/DL (3.4-5.0) Globulin 4.0 g/dL Albumin/Globulin Ratio 0.9 (1.0-2.7) L Lipase 4514 U/L (73-393) H Venous Blood pH Pending Venous Blood Partial Pressure CO2 Pending Venous Blood Partial Pressure O2 Pending Venous Blood HCO3 Pending Venous Blood Total Carbon Dioxide Pending Venous Bld O2 Saturation (Measured) Pending Venous Blood Oxygen Saturation Pending Venous Blood Base Excess Pending Methemoglobin Pending Sodium (Blood Gas) Pending Urine Color Pale yellow Urine Appearance Clear Urine pH 5 (4.5-8.0) Urine Specific [place] 1.015 (1.005-1.035) Urine Protein 2+ (NEGATIVE) H Urine Glucose (UA) 4+ (NEGATIVE) H Urine Ketones 4+ (NEGATIVE) H Urine Occult Blood 1+ (NEGATIVE) H Urine Nitrite Negative (NEGATIVE) Urine Bilirubin Negative (NEGATIVE) Urine Urobilinogen Normal MG/DL (0.0-1.0) Urine Leukocyte Esterase Negative (NEGATIVE) Urine RBC 0-2 /HPF (0 - 0) H Urine WBC 0-2 /HPF (0 - 0) Urine Squamous Epithelial Cells Occasional /LPF Urine Bacteria None /HPF (NONE) Urine Hyaline Casts 0-2 /LPF (NONE) H Urine Coarse Granular Casts 0-2 /LPF (NONE) H Urine Opiates Screen Negative (NEGATIVE) Urine Barbiturates Screen Negative (NEGATIVE) Phencyclidine (PCP) Screen Negative (NEGATIVE) Urine Amphetamines Screen Negative (NEGATIVE) Urine Benzodiazepines Screen Negative (NEGATIVE) Urine Cocaine Screen Negative (NEGATIVE) Urine Marijuana (THC) Screen Positive (NEGATIVE) H Anion Gap 28 mmol/L (5-15) H Lactic Acid Level 0.90 mmol/L (0.66-2.22) Test 06/16/17 00:37 06/16/17 01:43 06/16/17 04:09 06/16/17 07:20 Venous Blood pH Pending Venous Blood Partial Pressure CO2 Pending Venous Blood Partial Pressure O2 Pending Venous Blood HCO3 Pending Venous Blood Total Carbon Dioxide Pending Venous Bld O2 Saturation (Measured) Pending Venous Blood Oxygen Saturation Pending Venous Blood Base Excess Pending Methemoglobin Pending Sodium (Blood Gas) Pending Arterial Blood pH 6.837 (7.350-7.450) Arterial Blood Partial Pressure CO2 24.6 mmHg (35.0-45.0) *L Arterial Blood Partial Pressure O2 34.2 mmHg (75.0-100.0) Arterial Blood HCO3 4.1 mmol/L (22.0-26.0) L Arterial Blood Oxygen Saturation 59.2 % (92.0-98.0) L Arterial Blood Base Excess -29.5 Juanito Test Positive Sodium Level 137 MMOL/L (136-145) 141 MMOL/L (136-145) Potassium Level 4.2 MMOL/L (3.5-5.1) 4.2 MMOL/L (3.5-5.1) Chloride Level 105 MMOL/L (98-107) 109 MMOL/L (98-107) H Carbon Dioxide Level 7 MMOL/L (21-32) *L 11 MMOL/L (21-32) L Anion Gap 25 mmol/L (5-15) H 21 mmol/L (5-15) H Blood Urea Nitrogen 63 mg/dL (7-18) H 61 mg/dL (7-18) H Creatinine 2.0 MG/DL (0.55-1.30) H 1.9 MG/DL (0.55-1.30) H Estimate Glomerular Filtration Rate 47.8 mL/min (>60) 50.7 mL/min (>60) Glucose Level 473 MG/DL (74-106) #H 264 MG/DL (74-106) #H Calcium Level 6.9 MG/DL (8.5-10.1) L 7.2 MG/DL (8.5-10.1) L Total Bilirubin 0.3 MG/DL (0.2-1.0) 0.3 MG/DL (0.2-1.0) Aspartate Amino Transferase (AST) 46 U/L (15-37) H 45 U/L (15-37) H Alanine Aminotransferase (ALT) 47 U/L (12-78) 47 U/L (12-78) Alkaline Phosphatase 75 U/L (46-116) 71 U/L (46-116) Troponin I 0.100 ng/mL (0.000-0.056) Total Protein 5.8 G/DL (6.4-8.2) L 5.9 G/DL (6.4-8.2) L Albumin 2.6 G/DL (3.4-5.0) L 2.7 G/DL (3.4-5.0) L Globulin 3.2 g/dL 3.2 g/dL Albumin/Globulin Ratio 0.8 (1.0-2.7) L 0.8 (1.0-2.7) L Test 06/16/17 07:28 06/16/17 11:33 06/16/17 15:10 Arterial Blood pH 7.280 (7.350-7.450) 6.950 (7.350-7.450) Arterial Blood Partial Pressure CO2 20.9 mmHg (35.0-45.0) *L 38.4 mmHg (35.0-45.0) Arterial Blood Partial Pressure O2 54.2 mmHg (75.0-100.0) L 154.5 mmHg (75.0-100.0) H Arterial Blood HCO3 9.0 mmol/L (22.0-26.0) L 8.3 mmol/L (22.0-26.0) L Arterial Blood Oxygen Saturation 90.4 % (92.0-98.0) L 97.8 % (92.0-98.0) Arterial Blood Base Excess -15.8 -23.2 Juanito Test Positive Positive Total Creatine Kinase 1394 U/L (26-308) H Pending Creatine Kinase MB 9.1 NG/ML (0.0-3.6) H Pending Troponin I 0.164 ng/mL (0.000-0.056) Rhythm Strip Diag. Results EP Interpretation: yes Rhythm: no PVC's, no ectopy, other - ST Status: improved - from arrest, but worsened from admission - critical Disposition: ADMITTED INPATIENT Condition: Critical Referrals: NOT CHOSEN NAI/,REFERRING (PCP) Jesus Pizarro M.D. Jun 16, 2017 16:29
[2017-06-16 17:00] LABS: CKMB 11.6 NG/ML (0.0-3.6)
[2017-06-16] MEDS: Vancomycin 750mg/NS 250ml 250 ML IVPB SCH (17:19)
[2017-06-16] MEDS ORDERED: MULTIVITAMIN IV SCH (17:30)
[2017-06-16] MEDS ORDERED: [UNRECOGNIZED DRUG - OTHER] IV SCH (17:30)
[2017-06-16] MEDS: Piperacillin/Tazobactam 3.375 GM in D5W 110 ML IVPB SCH (17:31)
[2017-06-16] MEDS ORDERED: Levemir Flexpen SUBQ SCH ×2 (18:00)
[2017-06-16 18:06] LABS: ANION GAP 32 mmol/L (5-15); BLOOD UREA NITROGEN 70 mg/dL (7-18); CALCIUM 7.2 MG/DL (8.5-10.1); CHLORIDE 108 MMOL/L (98-107); CREATININE 2.2 MG/DL (0.55-1.30); PHOSPHORUS 4.3 MG/DL (2.5-4.9); POTASSIUM 3.8 MMOL/L (3.5-5.1); SODIUM 145 MMOL/L (136-145)
[2017-06-16 18:11] LABS: CARBON DIOXIDE 6 MMOL/L (21-32)
--- NOTE | 2017-06-16 21:30 | Consultation ---
DATE OF CONSULTATION: 06/16/2017 INFECTIOUS DISEASE CONSULTATION CONSULTING PHYSICIAN: Saad Cummigns M.D. REQUESTING PHYSICIAN: Gopi Matson M.D. REASON FOR CONSULTATION: Diffuse pneumonia, sepsis, and leukocytosis in a diabetic patient with DKA and alcohol withdrawal, recommendation for antibiotics treatment and further management. HISTORY OF PRESENT ILLNESS: The patient is a 32-year-old male with past medical history of DM poorly controlled , was brought in to [facility] emergency room for weakness, altered mental status, and tachypnea. The patient had history of diabetes, which he managed with insulin, unclear whether he was taking his diabetes medication, but recently he has been sick, weak, and tired, unable to get out of bed and was found to be confused and tachypneic via paramedics. The patient's blood sugar was almost 1000 when the paramedics arrived, so he was started on intravenous fluid for hydration and brought into the emergency room at [facility] for further evaluation and management. The patient was found to have acute pancreatitis with diabetic ketoacidosis and renal failure with fever. He had also leukocytosis. His CT scan of the abdomen and pelvis showed patchy lungs infiltration suggestive of pneumonia, so I was consulted by the primary provider team for antibiotics treatment and further management. As of note, the patient is agitated and confused , unclear whether he was withdrawing from alcohol at this point, or not, cannot provide any history. History was mainly obtained from the mother at the bedside and medical record. as per mother he drinks only beer, but unclear whether he was drinking a lot recently or not . no alchol level was done in ED. REVIEW OF SYSTEMS: Unable to obtain. The patient is confused and agitated. Unable to provide any history. PAST MEDICAL HISTORY: Significant for diabetes . PAST SURGICAL HISTORY: Negative. MEDICATIONS: The patient was started on vancomycin and Zosyn. For the rest of his medications, please refer to MARs. ALLERGIES: He has no known drug allergy. SOCIAL HISTORY: The patient lives at home with mother. He smokes marijuana on and off. He drinks mainly beer. Unclear whether he drinks hard liquor and how often. No recent drug abuse. FAMILY HISTORY: Not contributory. PHYSICAL EXAMINATION: GENERAL: The patient is agitated, restless, on restrain of both arms and tachypneic. VITAL SIGNS: Temperature 97.6 degrees, pulse 111, respirations 41, blood pressure 139/91, saturation 100% on room air. HEENT: Normocephalic and atraumatic. Pupils are reactive to light. Moist oral mucosa. No exudate. NECK: Supple. No lymphadenopathy. CARDIOVASCULAR: He is tachycardic. S1 and S2 normal. No murmur or gallop. LUNGS: He had diffuse crackles and wheezing, mainly at the bases with tachypnea. ABDOMEN: Soft, distended, nontender. Negative bowel sounds. No hepatosplenomegaly. No ascites. EXTREMITIES: No edema or cyanosis. SKIN: No rash. No hives. LABORATORY AND DIAGNOSTIC DATA: Labs showed white count 15.6, hemoglobin 16.4, and platelet count 309. BUN of 61, creatinine of 1.9. AST of 45, ALT of 47. Troponin of 0.1. Urinalysis showed +4 glucose, +4 ketones, and 0-2 granular casts. Toxicology screening was positive for marijuana. Imaging, CT scan of the abdomen and pelvis showed patchy lungs infiltration. ASSESSMENT AND RECOMMENDATION: 1. Pneumonia with diffuse patchy infiltration, suspect aspiration. We will send sputum culture. Continue vancomycin and Zosyn and Zithromax empiric coverage. Monitor chest x-ray. 2. Sepsis due to the above. We will send blood culture and continue vancomycin and Zosyn empiric coverage. 3. Acute pancreatitis suspect due to alcohol abuse. Monitor lipase level. Keep NPO. Consult Gastrointestinal. 4. Diabetic ketoacidosis. Recommend insulin drip and tight glycemic control to keep blood sugar between 80 to 120. 5. Acidosis due to the above. Continue hydration. Monitor lactic acid. 6. possible Acute alcohol withdrawal. Recommend CIWA protocol and close monitor in telemetry unit with a sitter. Thank you for the consultation. Infectious Disease will continue to follow. Saad Cummings M.D. DR: David JOB#: [id number] CC: ARPITA
[2017-06-16] MEDS: LORazepam Inj 2mg/ml 1ml IV PRN (21:35)
[2017-06-16] MEDS: Insulin Rate Change 1 Each MISC PRN (22:57)
--- NOTE | 2017-06-16 23:00 | Consultation ---
DATE OF CONSULTATION: 06/16/2017 CARDIOLOGY CONSULTATION CONSULTING PHYSICIAN: David Arrington M.D. REFERRING PHYSICIAN: Gopi Matson M.D. REASON FOR CONSULTATION: Elevated troponin. HISTORY OF PRESENT ILLNESS: The patient is a 32-year-old gentleman with history of diabetes, who was brought to the emergency room for altered mental status. The patient's mother and the brother were at the bedside. The patient was not feeling well for two days. The paramedics were called, but then was sent home. The patient was back again in the emergency room with DKA with blood glucose of over 1000. The patient also had troponin elevation and an abnormal electrocardiogram. On my evaluation, the patient is still very agitated and confused and restrained from the mother and the nurse, who were at the bedside. REVIEW OF SYSTEMS: Cannot be obtained. PAST MEDICAL HISTORY: Diabetes. MEDICATIONS: Unknown. FAMILY HISTORY: Noncontributory. SOCIAL HISTORY: Uses marijuana and occasionally drinks alcohol. PHYSICAL EXAMINATION: VITAL SIGNS: Blood pressure is 124/68, pulse 119, and respiration is 21. HEAD AND NECK: Showed no JVD. LUNGS: Clear. CARDIOVASCULAR: Shows tachycardic. S1 and S2 with no gallop or murmur. ABDOMEN: Soft and nontender. EXTREMITIES: No pitting edema. LABORATORY AND DIAGNOSTIC DATA: EKG showed sinus tachycardia with nonspecific ST abnormalities. His EKG from yesterday shows sinus rhythm with possible inferolateral injury, however, it was artifactual baseline EKG. Labs showed white count of 15.6, hemoglobin of 16.4, hematocrit of 53.5, and platelet count of 309,000. Sodium 141, potassium is 4.2, BUN of 61, and creatinine of 1.9. Initially, his carbon dioxide is only 6 with a glucose of 725. Today, carbon dioxide is 11, it is elevated to 64. His troponin is 0.1 and 0.164. Urine tox screen is positive for marijuana. ASSESSMENT AND PLAN: 1. Troponin leak. Peak levels are flat and likely due to renal failure. The creatinine was 2.4 on admission. Echocardiogram for further evaluation. At this time, I will avoid beta-blockers in view of the patient's diabetes. In view of his age of only 32, I will also hold statin and aspirin. 2. Tachycardia due to diabetic ketoacidosis, possible sepsis. 3. Pneumonia, on vancomycin and Zosyn for coverage per Dr. Cummings. 4. Pancreatitis. 5. Alcohol withdrawal. 6. Marijuana use. Thank you very much, Dr. Matson for allowing me to participate in the care of this patient. Please do not hesitate to contact for any questions regarding my evaluation. David Arrington M.D. DR: SELINA JOB#: [id number] CC:
[2017-06-17] VITALS (24 sets, daily range): BP systolic 117–166; BP diastolic 49–112
[2017-06-17] MEDS: Insulin Rate Change 1 Each MISC PRN ×6 (00:02→06:31)
[2017-06-17] MEDS: Piperacillin/Tazobactam 3.375 GM in D5W 110 ML IVPB SCH ×3 (00:31→18:02)
[2017-06-17] MEDS: LORazepam Inj 2mg/ml 1ml IV PRN ×2 (04:08→17:42)
[2017-06-17] MEDS: Vancomycin 750mg/NS 250ml 250 ML IVPB SCH ×2 (04:50→18:01)
[2017-06-17 04:57] LABS: HEMATOCRIT 33.5 % (42.0-52.0); HEMOGLOBIN 12.5 G/DL (14.2-18.0); MEAN CORPUSCULAR VOLUME 90 FL (80-99); PLATELET COUNT 175 K/UL (150-450); RED BLOOD COUNT 3.71 M/UL (4.70-6.10); RED CELL DISTRIBUTION WIDTH 9.7 % (11.6-14.8); WHITE BLOOD COUNT 7.1 K/UL (4.8-10.8)
[2017-06-17 05:12] LABS: CALCIUM 7.6 MG/DL (8.5-10.1); CHLORIDE 118 MMOL/L (98-107)
[2017-06-17 05:14] LABS: ALANINE AMINOTRANSFERASE 64 U/L (12-78); ALBUMIN 2.2 G/DL (3.4-5.0); ALBUMIN/GLOBULIN RATIO 0.7 (1.0-2.7); ALKALINE PHOSPHATASE 53 U/L (46-116); ANION GAP 13 mmol/L (5-15); ASPARTATE AMINO TRANSFERASE 132 U/L (15-37); BILIRUBIN,DIRECT < 0.1 MG/DL (0.0-0.3); BILIRUBIN,TOTAL 0.3 MG/DL (0.2-1.0); BLOOD UREA NITROGEN 72 mg/dL (7-18); CARBON DIOXIDE 19 MMOL/L (21-32); POTASSIUM 3.2 MMOL/L (3.5-5.1); SODIUM 150 MMOL/L (136-145)
--- NOTE | 2017-06-17 08:11 | General Progress Note ---
Assessment/Plan Problem List: (1) DKA (diabetic ketoacidosis) ICD Codes: E13.10 - Other specified diabetes mellitus with ketoacidosis without coma SNOMED: 13648864, [id number] Qualifiers: Qualified Codes: E10.11 - Type 1 diabetes mellitus with ketoacidosis with coma (2) Metabolic acidosis ICD Codes: E87.2 - Acidosis SNOMED: 59187411 (3) Cardiopulmonary arrest ICD Codes: I46.9 - Cardiac arrest, cause unspecified SNOMED: 455625601 Assessment/Plan DC insulin drip start Levemir and Novolog insulin regimen follow and correct electrolytes Subjective ROS Limited/Unobtainable: Yes Allergies: Coded Allergies: No Known Allergies (Unverified , 06/15/17) Subjective intubated in icu Objective Last 24 Hour Vital Signs Date Time Temp Pulse Resp B/P (MAP) Pulse Ox O2 Delivery O2 Flow Rate FiO2 06/17/17 07:00 110 33 147/88 100 Mechanical Ventilator 70 06/17/17 06:56 115 41 60 06/17/17 06:00 99.0 112 33 156/94 100 Mechanical Ventilator 70 06/17/17 05:00 100.0 116 33 117/78 100 Mechanical Ventilator 70 06/17/17 04:32 120 38 60 06/17/17 04:00 110 06/17/17 04:00 98.9 123 36 135/75 100 Mechanical Ventilator 100 06/17/17 04:00 60 06/17/17 03:00 110 33 148/89 100 Mechanical Ventilator 70 06/17/17 02:56 108 28 60 06/17/17 02:00 108 29 133/87 100 Mechanical Ventilator 70 06/17/17 01:00 114 29 133/76 100 Mechanical Ventilator 70 06/17/17 00:24 114 39 70 06/17/17 00:23 70 06/17/17 00:00 98.9 110 36 120/81 100 Mechanical Ventilator 70 06/17/17 00:00 107 06/16/17 23:01 113 41 80 06/16/17 23:00 80 06/16/17 23:00 109 40 138/81 100 Mechanical Ventilator 80 06/16/17 22:00 109 40 122/75 100 Mechanical Ventilator 90 06/16/17 21:01 103 44 90 06/16/17 21:00 109 49 82/49 100 Mechanical Ventilator 90 06/16/17 20:00 90 06/16/17 20:00 99.0 104 48 111/64 100 Mechanical Ventilator 100 06/16/17 20:00 110 06/16/17 19:02 98.9 109 36 82/49 100 Mechanical Ventilator 100 06/16/17 18:51 107 48 100 06/16/17 18:00 98.9 110 46 116/67 92 Mechanical Ventilator 100 06/16/17 17:00 98.9 115 48 85/43 100 Mechanical Ventilator 100 06/16/17 16:59 119 48 100 06/16/17 16:56 100 06/16/17 16:55 45 06/16/17 16:00 98.9 43 36 85/45 95 Mechanical Ventilator 100 06/16/17 15:52 95 06/16/17 15:48 100 06/16/17 15:33 112 45 Mechanical Ventilator 100 06/16/17 15:26 118 48 100 06/16/17 12:30 97.6 119 21 124/68 100 Room Air 06/16/17 10:52 119 21 124/68 100 Room Air 06/16/17 09:00 109 33 141/87 100 Room Air Intake and Output 06/16/17 06/17/17 19:00 07:00 Intake Total 1373.56 ml 1830.03 ml Output Total 1620 ml 1485 ml Balance -246.44 ml 345.03 ml Intake IV Total 1373.56 ml 1830.03 ml Output Urine Total 1620 ml 1485 ml Laboratory Tests 06/16/17 11:33: Total Creatine Kinase 1394H, Creatine Kinase MB 9.1H, Troponin I 0.164H 06/16/17 15:10: Total Creatine Kinase 1817H, Creatine Kinase MB 11.6H, Arterial Blood pH 6.950*L , Arterial Blood Partial Pressure CO2 38.4, Arterial Blood Partial Pressure O2 154.5H, Arterial Blood HCO3 8.3L, Arterial Blood Oxygen Saturation 97.8, Arterial Blood Base Excess -23.2, Juanito Test Positive, Sodium Level 145, Potassium Level 3.8, Chloride Level 108H, Carbon Dioxide Level 6*L, Anion Gap 32H, Blood Urea Nitrogen 70H, Creatinine 2.2H, Estimat Glomerular Filtration Rate 42.8, Glucose Level 481#H, Hemoglobin A1c 11.7H, Calcium Level 7.2L, Phosphorus Level 4.3, Magnesium Level 2.4, Creatine Kinase MB Relative Index 0.6 06/16/17 16:35: Arterial Blood pH 7.167*L, Arterial Blood Partial Pressure CO2 30.4L, Arterial Blood Partial Pressure O2 59.8L, Arterial Blood HCO3 10.8L, Arterial Blood Oxygen Saturation 0.0L, Arterial Blood Base Excess -16.5, Juanito Test Positive 06/17/17 03:45: Sodium Level 150H, Potassium Level 3.2L, Chloride Level 118H, Carbon Dioxide Level 19L, Anion Gap 13, Blood Urea Nitrogen 72H, Creatinine 3.0H, Estimat Glomerular Filtration Rate 29.9, Glucose Level 132#H, Calcium Level 7.6L, White Blood Count 7.1#, Red Blood Count 3.71L, Hemoglobin 12.5L, Hematocrit 33.5#L, Mean Corpuscular Volume 90#, Mean Corpuscular Hemoglobin 33.8H, Mean Corpuscular Hemoglobin Concent 37.5H, Red Cell Distribution Width 9.7L, Platelet Count 175, Mean Platelet Volume 7.3, Neutrophils (%) (Auto) , Lymphocytes (%) (Auto) , Monocytes (%) (Auto) , Eosinophils (%) (Auto) , Basophils (%) (Auto) , Differential Total Cells Counted 100, Neutrophils % ( Manual) 79H, Lymphocytes % (Manual) 9L, Monocytes % (Manual) 5, Eosinophils % ( Manual) 0, Basophils % (Manual) 0, Band Neutrophils 7, Platelet Estimate Adequate, Platelet Morphology Normal, Total Bilirubin 0.3, Direct Bilirubin < 0.1, Aspartate Amino Transf (AST/SGOT) 132H, Alanine Aminotransferase (ALT/SGPT ) 64, Alkaline Phosphatase 53, Total Protein 5.2L, Albumin 2.2L, Globulin 3.0, Albumin/Globulin Ratio 0.7L Height (Feet): 5 Height (Inches): 7.00 Weight (Pounds): 116 General Appearance: moderate distress EENT: pale conjunctivae Neck: normal alignment Cardiovascular: normal rate Respiratory/Chest: lungs clear Abdomen: normal bowel sounds Objective Current Medications Medications (Trade) Dose Ordered Sig/Conrado Route PRN Reason Start Time Stop Time Status Last Admin Dose Admin Acetaminophen (Tylenol) 650 mg Q4H PRN ORAL Mild Pain/Temp > 100.5 06/16/17 17:45 07/16/17 13:44 Atropine Sulfate (Atropine 0.4mg/ ml) 0.5 mg EVERY HOUR PRN IVP Per rx protocol 06/16/17 16:15 07/16/17 16:14 UNV Dextrose (Dextrose 50%) PRN PRN IV HYPOGLYCEMIA 06/16/17 17:15 07/16/17 17:14 Insulin Detemir (Levemir) 10 units BID SUBQ 06/16/17 18:00 07/16/17 17:59 06/16/17 18:25 Insulin Human Regular (NovoLIN R) 5 units PRN PRN IV BS 200-299 06/16/17 17:15 07/16/17 17:14 06/16/17 22:58 Insulin Human Regular (NovoLIN R) 10 units PRN PRN IV BS=>300 06/16/17 17:15 07/16/17 17:14 06/16/17 22:00 Insulin Human Regular 100 units/ Sodium Chloride 101 ml @ 0 mls/hr Q24H IV 06/16/17 18:15 07/16/17 17:29 06/17/17 06:30 Lorazepam (Ativan 2mg/ml 1ml) 1 mg Q4H PRN IV For Anxiety 06/16/17 18:39 06/23/17 18:38 06/17/17 04:08 Miscellaneous Medication (Insulin Rate Change) 1 ea PRN PRN MISC Hyperglycemia 06/16/17 17:15 07/16/17 17:14 06/17/17 06:31 Morphine Sulfate (Morphine Sulfate) 2 mg Q4HR PRN IVP Moderate Pain (Pain Scale 4-6) 06/16/17 17:00 06/23/17 00:59 Ondansetron HCl (Zofran) 4 mg Q6H PRN IVP Nausea & Vomiting 06/16/17 19:00 07/16/17 00:59 Pantoprazole (Protonix) 40 mg DAILY ORAL 06/17/17 09:00 07/16/17 08:59 Piperacillin Sod/ Tazobactam Sod 3.375 gm/Dextrose 110 ml @ 27.5 mls/hr Q8H IVPB 06/16/17 17:00 06/23/17 16:59 06/17/17 00:31 Sodium Chloride 1,000 ml @ 100 mls/hr Q10H IVLG 06/16/17 16:30 07/16/17 16:29 06/17/17 03:04 Thiamine HCl 100 mg/Folic Acid 1 mg/Multivitamins 10 ml/Sodium Chloride 1,011.2 ml @ 125 mls/ hr DAILY IV 06/16/17 17:30 07/16/17 17:29 06/16/17 18:30 Vancomycin HCl (Vanco rx to dose) 1 ea DAILY PRN MISC Per rx protocol 06/17/17 09:00 07/16/17 13:29 Vancomycin/Sodium Chloride 250 ml @ 166.667 mls/hr Q12H IVPB 06/16/17 17:00 06/21/17 16:59 06/17/17 04:50 Item Value Date Time Bedside Blood Glucose 157 mg/dl H 06/17/17 0700 Bedside Blood Glucose 150 mg/dl H 06/17/17 0631 Bedside Blood Glucose 166 mg/dl H 06/17/17 0200 Bedside Blood Glucose 267 mg/dl H 06/16/17 2258 Bedside Blood Glucose 547 mg/dl H 06/16/17 1825 Bedside Blood Glucose 360 mg/dl H 06/16/17 1330 JADIEL MARCANO Jun 17, 2017 08:10
--- NOTE | 2017-06-17 08:38 | Nephrology Progress Note ---
Assessment/Plan Problem List: (1) DKA (diabetic ketoacidosis) (2) Elevated troponin (3) Pancreatitis (4) Hyponatremia Assessment: corrected (5) Acidosis (6) Respiratory distress Assessment: now intubated (7) Fever (8) Pneumonia Assessment: aspiration? (9) Sepsis (10) Alcohol withdrawal (11) Metabolic acidosis (12) Cardiopulmonary arrest Plan cardio/ID/pulm/endocrine following. continue empiric abx. follow up cultures. off insulin drip. monitor closely. f/u echo. d./w Dr. Matson. Subjective Subjective events noted. coded twice for bradycardia. now intubated in ICU. unresponsive. Objective Objective Last 24 Hour Vital Signs Date Time Temp Pulse Resp B/P (MAP) Pulse Ox O2 Delivery O2 Flow Rate FiO2 06/17/17 08:00 98.3 109 30 149/49 99 Mechanical Ventilator 60 06/17/17 08:00 106 06/17/17 08:00 60 06/17/17 07:00 110 33 147/88 100 Mechanical Ventilator 70 06/17/17 06:56 115 41 60 06/17/17 06:00 99.0 112 33 156/94 100 Mechanical Ventilator 70 06/17/17 05:00 100.0 116 33 117/78 100 Mechanical Ventilator 70 06/17/17 04:32 120 38 60 06/17/17 04:00 110 06/17/17 04:00 98.9 123 36 135/75 100 Mechanical Ventilator 100 06/17/17 04:00 60 06/17/17 03:00 110 33 148/89 100 Mechanical Ventilator 70 06/17/17 02:56 108 28 60 06/17/17 02:00 108 29 133/87 100 Mechanical Ventilator 70 06/17/17 01:00 114 29 133/76 100 Mechanical Ventilator 70 06/17/17 00:24 114 39 70 06/17/17 00:23 70 06/17/17 00:00 98.9 110 36 120/81 100 Mechanical Ventilator 70 06/17/17 00:00 107 06/16/17 23:01 113 41 80 06/16/17 23:00 80 06/16/17 23:00 109 40 138/81 100 Mechanical Ventilator 80 06/16/17 22:00 109 40 122/75 100 Mechanical Ventilator 90 06/16/17 21:01 103 44 90 06/16/17 21:00 109 49 82/49 100 Mechanical Ventilator 90 06/16/17 20:00 90 06/16/17 20:00 99.0 104 48 111/64 100 Mechanical Ventilator 100 06/16/17 20:00 110 06/16/17 19:02 98.9 109 36 82/49 100 Mechanical Ventilator 100 06/16/17 18:51 107 48 100 06/16/17 18:00 98.9 110 46 116/67 92 Mechanical Ventilator 100 06/16/17 17:00 98.9 115 48 85/43 100 Mechanical Ventilator 100 06/16/17 16:59 119 48 100 06/16/17 16:56 100 06/16/17 16:55 45 06/16/17 16:00 98.9 43 36 85/45 95 Mechanical Ventilator 100 06/16/17 15:52 95 06/16/17 15:48 100 06/16/17 15:33 112 45 Mechanical Ventilator 100 06/16/17 15:26 118 48 100 06/16/17 12:30 97.6 119 21 124/68 100 Room Air 06/16/17 10:52 119 21 124/68 100 Room Air 06/16/17 09:00 109 33 141/87 100 Room Air Intake and Output 06/16/17 06/17/17 19:00 07:00 Intake Total 1373.56 ml 1830.03 ml Output Total 1620 ml 1485 ml Balance -246.44 ml 345.03 ml Intake IV Total 1373.56 ml 1830.03 ml Output Urine Total 1620 ml 1485 ml Laboratory Tests 06/16/17 11:33: Total Creatine Kinase 1394H, Creatine Kinase MB 9.1H, Troponin I 0.164H 06/16/17 15:10: Total Creatine Kinase 1817H, Creatine Kinase MB 11.6H, Arterial Blood pH 6.950*L , Arterial Blood Partial Pressure CO2 38.4, Arterial Blood Partial Pressure O2 154.5H, Arterial Blood HCO3 8.3L, Arterial Blood Oxygen Saturation 97.8, Arterial Blood Base Excess -23.2, Juanito Test Positive, Sodium Level 145, Potassium Level 3.8, Chloride Level 108H, Carbon Dioxide Level 6*L, Anion Gap 32H, Blood Urea Nitrogen 70H, Creatinine 2.2H, Estimat Glomerular Filtration Rate 42.8, Glucose Level 481#H, Hemoglobin A1c 11.7H, Calcium Level 7.2L, Phosphorus Level 4.3, Magnesium Level 2.4, Creatine Kinase MB Relative Index 0.6 06/16/17 16:35: Arterial Blood pH 7.167*L, Arterial Blood Partial Pressure CO2 30.4L, Arterial Blood Partial Pressure O2 59.8L, Arterial Blood HCO3 10.8L, Arterial Blood Oxygen Saturation 0.0L, Arterial Blood Base Excess -16.5, Juanito Test Positive 06/17/17 03:45: Sodium Level 150H, Potassium Level 3.2L, Chloride Level 118H, Carbon Dioxide Level 19L, Anion Gap 13, Blood Urea Nitrogen 72H, Creatinine 3.0H, Estimat Glomerular Filtration Rate 29.9, Glucose Level 132#H, Calcium Level 7.6L, White Blood Count 7.1#, Red Blood Count 3.71L, Hemoglobin 12.5L, Hematocrit 33.5#L, Mean Corpuscular Volume 90#, Mean Corpuscular Hemoglobin 33.8H, Mean Corpuscular Hemoglobin Concent 37.5H, Red Cell Distribution Width 9.7L, Platelet Count 175, Mean Platelet Volume 7.3, Neutrophils (%) (Auto) , Lymphocytes (%) (Auto) , Monocytes (%) (Auto) , Eosinophils (%) (Auto) , Basophils (%) (Auto) , Differential Total Cells Counted 100, Neutrophils % ( Manual) 79H, Lymphocytes % (Manual) 9L, Monocytes % (Manual) 5, Eosinophils % ( Manual) 0, Basophils % (Manual) 0, Band Neutrophils 7, Platelet Estimate Adequate, Platelet Morphology Normal, Total Bilirubin 0.3, Direct Bilirubin < 0.1, Aspartate Amino Transf (AST/SGOT) 132H, Alanine Aminotransferase (ALT/SGPT ) 64, Alkaline Phosphatase 53, Total Protein 5.2L, Albumin 2.2L, Globulin 3.0, Albumin/Globulin Ratio 0.7L Height (Feet): 5 Height (Inches): 7.00 Weight (Pounds): 116 General Appearance: no apparent distress Cardiovascular: normal rate, regular rhythm Respiratory/Chest: lungs clear Abdomen: normal bowel sounds, non tender, soft Extremities: non-pitting Neurologic: unresponsive SOFIA HAYES Jun 17, 2017 08:38
[2017-06-17] MEDS: FOLIC ACID IV SCH (10:14)
[2017-06-17] MEDS: [UNRECOGNIZED DRUG - OTHER] IV SCH (10:14)
[2017-06-17] MEDS: MULTIVITAMIN IV SCH (10:14)
[2017-06-17] MEDS: THIAMINE HCL IV SCH (10:14)
[2017-06-17] MEDS: Levemir Flexpen SUBQ SCH ×2 (10:19→20:33)
[2017-06-17] MEDS: NovoLOG Insulin Flexpen SUBQ SCH ×4 (10:21→20:34)
--- NOTE | 2017-06-17 12:18 | Cardiac Electrophysiology PN ---
Assessment/Plan Assessment/Plan 1. Troponin leak. Peak levels are flat and likely due to renal failure. The creatinine was 2.4 on admission. Echocardiogram done today results pending 2. Tachycardia due to diabetic ketoacidosis, possible sepsis. 3. Pneumonia, on vancomycin and Zosyn for coverage per Dr. Cummings. 4. Pancreatitis. 5. Alcohol withdrawal. 6. Marijuana use. DW father at bedside and RN Subjective Subjective In ICU on vent.Off insulin drip Objective Last 24 Hour Vital Signs Date Time Temp Pulse Resp B/P (MAP) Pulse Ox O2 Delivery O2 Flow Rate FiO2 06/17/17 10:36 111 28 60 06/17/17 10:00 116 30 139/82 99 Mechanical Ventilator 60 06/17/17 09:00 120 31 153/93 98 Mechanical Ventilator 60 06/17/17 08:36 108 40 60 06/17/17 08:00 98.3 109 30 149/49 99 Mechanical Ventilator 60 06/17/17 08:00 106 06/17/17 08:00 60 06/17/17 07:00 110 33 147/88 100 Mechanical Ventilator 70 06/17/17 06:56 115 41 60 06/17/17 06:00 99.0 112 33 156/94 100 Mechanical Ventilator 70 06/17/17 05:00 100.0 116 33 117/78 100 Mechanical Ventilator 70 06/17/17 04:32 120 38 60 06/17/17 04:00 110 06/17/17 04:00 98.9 123 36 135/75 100 Mechanical Ventilator 100 06/17/17 04:00 60 06/17/17 03:00 110 33 148/89 100 Mechanical Ventilator 70 06/17/17 02:56 108 28 60 06/17/17 02:00 108 29 133/87 100 Mechanical Ventilator 70 06/17/17 01:00 114 29 133/76 100 Mechanical Ventilator 70 06/17/17 00:24 114 39 70 06/17/17 00:23 70 06/17/17 00:00 98.9 110 36 120/81 100 Mechanical Ventilator 70 06/17/17 00:00 107 06/16/17 23:01 113 41 80 06/16/17 23:00 80 06/16/17 23:00 109 40 138/81 100 Mechanical Ventilator 80 06/16/17 22:00 109 40 122/75 100 Mechanical Ventilator 90 06/16/17 21:01 103 44 90 06/16/17 21:00 109 49 82/49 100 Mechanical Ventilator 90 06/16/17 20:00 90 06/16/17 20:00 99.0 104 48 111/64 100 Mechanical Ventilator 100 06/16/17 20:00 110 06/16/17 19:02 98.9 109 36 82/49 100 Mechanical Ventilator 100 06/16/17 18:51 107 48 100 06/16/17 18:00 98.9 110 46 116/67 92 Mechanical Ventilator 100 06/16/17 17:00 98.9 115 48 85/43 100 Mechanical Ventilator 100 06/16/17 16:59 119 48 100 06/16/17 16:56 100 06/16/17 16:55 45 06/16/17 16:00 98.9 43 36 85/45 95 Mechanical Ventilator 100 06/16/17 15:52 95 06/16/17 15:48 100 06/16/17 15:33 112 45 Mechanical Ventilator 100 06/16/17 15:26 118 48 100 06/16/17 12:30 97.6 119 21 124/68 100 Room Air Intake and Output 06/16/17 06/17/17 19:00 07:00 Intake Total 1373.56 ml 1830.03 ml Output Total 1620 ml 1485 ml Balance -246.44 ml 345.03 ml Intake IV Total 1373.56 ml 1830.03 ml Output Urine Total 1620 ml 1485 ml Laboratory Tests Test 06/16/17 15:10 06/16/17 16:35 06/17/17 03:45 06/17/17 10:32 Arterial Blood pH 6.950 (7.350-7.450) 7.167 (7.350-7.450) 7.450 (7.350-7.450) Arterial Blood Partial Pressure CO2 38.4 mmHg (35.0-45.0) 30.4 mmHg (35.0-45.0) L 25.4 mmHg (35.0-45.0) L Arterial Blood Partial Pressure O2 154.5 mmHg (75.0-100.0) H 59.8 mmHg (75.0-100.0) L 88.4 mmHg (75.0-100.0) Arterial Blood HCO3 8.3 mmol/L (22.0-26.0) L 10.8 mmol/L (22.0-26.0) L 17.5 mmol/L (22.0-26.0) L Arterial Blood Oxygen Saturation 97.8 % (92.0-98.0) 0.0 % (92.0-98.0) L 97.1 % (92.0-98.0) Arterial Blood Base Excess -23.2 -16.5 -4.8 Juanito Test Positive Positive Positive Sodium Level 145 MMOL/L (136-145) 150 MMOL/L (136-145) H Potassium Level 3.8 MMOL/L (3.5-5.1) 3.2 MMOL/L (3.5-5.1) L Chloride Level 108 MMOL/L (98-107) H 118 MMOL/L (98-107) H Carbon Dioxide Level 6 MMOL/L (21-32) *L 19 MMOL/L (21-32) L Anion Gap 32 mmol/L (5-15) H 13 mmol/L (5-15) Blood Urea Nitrogen 70 mg/dL (7-18) H 72 mg/dL (7-18) H Creatinine 2.2 MG/DL (0.55-1.30) H 3.0 MG/DL (0.55-1.30) H Estimat Glomerular Filtration Rate 42.8 mL/min (>60) 29.9 mL/min (>60) Glucose Level 481 MG/DL (74-106) #H 132 MG/DL (74-106) #H Hemoglobin A1c 11.7 % (4.3-6.0) H Calcium Level 7.2 MG/DL (8.5-10.1) L 7.6 MG/DL (8.5-10.1) L Phosphorus Level 4.3 MG/DL (2.5-4.9) Magnesium Level 2.4 MG/DL (1.8-2.4) Total Creatine Kinase 1817 U/L (26-308) H Creatine Kinase MB 11.6 NG/ML (0.0-3.6) H Creatine Kinase MB Relative Index 0.6 White Blood Count 7.1 K/UL (4.8-10.8) # Red Blood Count 3.71 M/UL (4.70-6.10) L Hemoglobin 12.5 G/DL (14.2-18.0) L Hematocrit 33.5 % (42.0-52.0) #L Mean Corpuscular Volume 90 FL (80-99) # Mean Corpuscular Hemoglobin 33.8 PG (27.0-31.0) H Mean Corpuscular Hemoglobin Concent 37.5 G/DL (32.0-36.0) H Red Cell Distribution Width 9.7 % (11.6-14.8) L Platelet Count 175 K/UL (150-450) Mean Platelet Volume 7.3 FL (6.5-10.1) Neutrophils (%) (Auto) % (45.0-75.0) Lymphocytes (%) (Auto) % (20.0-45.0) Monocytes (%) (Auto) % (1.0-10.0) Eosinophils (%) (Auto) % (0.0-3.0) Basophils (%) (Auto) % (0.0-2.0) Differential Total Cells Counted 100 Neutrophils % (Manual) 79 % (45-75) H Lymphocytes % (Manual) 9 % (20-45) L Monocytes % (Manual) 5 % (1-10) Eosinophils % (Manual) 0 % (0-3) Basophils % (Manual) 0 % (0-2) Band Neutrophils 7 % (0-8) Platelet Estimate Adequate Platelet Morphology Normal Total Bilirubin 0.3 MG/DL (0.2-1.0) Direct Bilirubin < 0.1 MG/DL (0.0-0.3) Aspartate Amino Transf (AST/SGOT) 132 U/L (15-37) H Alanine Aminotransferase (ALT/SGPT) 64 U/L (12-78) Alkaline Phosphatase 53 U/L (46-116) Total Protein 5.2 G/DL (6.4-8.2) L Albumin 2.2 G/DL (3.4-5.0) L Globulin 3.0 g/dL Albumin/Globulin Ratio 0.7 (1.0-2.7) L Microbiology Date/Time Source Procedure Growth Status 06/15/17 21:25 Blood Blood Culture - Preliminary NO GROWTH AFTER 24 HOURS Resulted 06/15/17 21:10 Blood Blood Culture - Preliminary NO GROWTH AFTER 24 HOURS Resulted Objective HEAD AND NECK: Showed no JVD. LUNGS: Clear. CARDIOVASCULAR: Tachycardic. S1 and S2 with no gallop or murmur. ABDOMEN: Soft and nontender. EXTREMITIES: No pitting edema. ALBERT ROWAN Jun 17, 2017 12:18
--- NOTE | 2017-06-17 13:42 | Infectious Diseases Prog Note ---
Assessment/Plan Problems: (1) Pneumonia Assessment & Plan: with diffuse patchy infiltrates, await sputum culture, continue vancomycin and zosyn empiric coverage. monitor CXR (2) Sepsis Assessment & Plan: due to the above, will send blood culture and continue vancomycin and zosyn (3) Pancreatitis Assessment & Plan: suspect due to alchol abuse, monitor lipase, keep npo, consult GI (4) DKA (diabetic ketoacidosis) Assessment & Plan: recommend insulin drip , and close monitor of blood glucose (5) Acidosis Assessment & Plan: due to the above , continue hydration (6) Alcohol withdrawal Assessment & Plan: on CIWA protocol , continue close monitor in ICU Subjective ROS Limited/Unobtainable: Yes Allergies: Coded Allergies: No Known Allergies (Unverified , 06/15/17) Subjective he is intubated on mechanical ventilation , comfortable, and resting in bed, afebrile, father at the bedside Objective Vital Signs Last 24 Hour Vital Signs Date Time Temp Pulse Resp B/P (MAP) Pulse Ox O2 Delivery O2 Flow Rate FiO2 06/17/17 12:45 106 35 45 06/17/17 12:00 98.3 111 29 145/98 100 Mechanical Ventilator 45 06/17/17 12:00 108 06/17/17 12:00 60 06/17/17 11:00 111 29 121/76 99 Mechanical Ventilator 60 06/17/17 10:36 111 28 60 06/17/17 10:00 116 30 139/82 99 Mechanical Ventilator 60 06/17/17 09:00 120 31 153/93 98 Mechanical Ventilator 60 06/17/17 08:36 108 40 60 06/17/17 08:00 98.3 109 30 149/49 99 Mechanical Ventilator 60 06/17/17 08:00 106 06/17/17 08:00 60 06/17/17 07:00 110 33 147/88 100 Mechanical Ventilator 70 06/17/17 06:56 115 41 60 06/17/17 06:00 99.0 112 33 156/94 100 Mechanical Ventilator 70 06/17/17 05:00 100.0 116 33 117/78 100 Mechanical Ventilator 70 06/17/17 04:32 120 38 60 06/17/17 04:00 110 06/17/17 04:00 98.9 123 36 135/75 100 Mechanical Ventilator 100 06/17/17 04:00 60 06/17/17 03:00 110 33 148/89 100 Mechanical Ventilator 70 06/17/17 02:56 108 28 60 06/17/17 02:00 108 29 133/87 100 Mechanical Ventilator 70 06/17/17 01:00 114 29 133/76 100 Mechanical Ventilator 70 06/17/17 00:24 114 39 70 06/17/17 00:23 70 06/17/17 00:00 98.9 110 36 120/81 100 Mechanical Ventilator 70 06/17/17 00:00 107 06/16/17 23:01 113 41 80 06/16/17 23:00 80 06/16/17 23:00 109 40 138/81 100 Mechanical Ventilator 80 06/16/17 22:00 109 40 122/75 100 Mechanical Ventilator 90 06/16/17 21:01 103 44 90 06/16/17 21:00 109 49 82/49 100 Mechanical Ventilator 90 06/16/17 20:00 90 06/16/17 20:00 99.0 104 48 111/64 100 Mechanical Ventilator 100 06/16/17 20:00 110 06/16/17 19:02 98.9 109 36 82/49 100 Mechanical Ventilator 100 06/16/17 18:51 107 48 100 06/16/17 18:00 98.9 110 46 116/67 92 Mechanical Ventilator 100 06/16/17 17:00 98.9 115 48 85/43 100 Mechanical Ventilator 100 06/16/17 16:59 119 48 100 06/16/17 16:56 100 06/16/17 16:55 45 06/16/17 16:00 98.9 43 36 85/45 95 Mechanical Ventilator 100 06/16/17 15:52 95 06/16/17 15:48 100 06/16/17 15:33 112 45 Mechanical Ventilator 100 06/16/17 15:26 118 48 100 Height (Feet): 5 Height (Inches): 7.00 Weight (Pounds): 116 General Appearance: WD/WN, no acute distress HEENT: normocephalic, atraumatic, anicteric, mucous membranes moist, PERRL Respiratory/Chest: chest wall non-tender, lungs clear, normal breath sounds, no respiratory distress, no accessory muscle use Cardiovascular: normal peripheral pulses, normal rate, regular rhythm, no gallop/murmur, no JVD Abdomen: normal bowel sounds, soft, non tender, no organomegaly, non distended , no mass, no scars Extremities: no cyanosis, no clubbing Skin: no rash, no lesions, no ulcers Neurologic/Psychiatric: alert, oriented x 3 Lymphatic: no neck adenopathy, no groin adenopathy Musculoskeletal: normal muscle bulk Microbiology Date/Time Source Procedure Growth Status 06/15/17 21:25 Blood Blood Culture - Preliminary NO GROWTH AFTER 24 HOURS Resulted 06/15/17 21:10 Blood Blood Culture - Preliminary NO GROWTH AFTER 24 HOURS Resulted Laboratory Tests Test 06/16/17 15:10 06/16/17 16:35 06/17/17 03:45 06/17/17 10:32 Arterial Blood pH 6.950 (7.350-7.450) 7.167 (7.350-7.450) 7.450 (7.350-7.450) Arterial Blood Partial Pressure CO2 38.4 mmHg (35.0-45.0) 30.4 mmHg (35.0-45.0) L 25.4 mmHg (35.0-45.0) L Arterial Blood Partial Pressure O2 154.5 mmHg (75.0-100.0) H 59.8 mmHg (75.0-100.0) L 88.4 mmHg (75.0-100.0) Arterial Blood HCO3 8.3 mmol/L (22.0-26.0) L 10.8 mmol/L (22.0-26.0) L 17.5 mmol/L (22.0-26.0) L Arterial Blood Oxygen Saturation 97.8 % (92.0-98.0) 0.0 % (92.0-98.0) L 97.1 % (92.0-98.0) Arterial Blood Base Excess -23.2 -16.5 -4.8 Juanito Test Positive Positive Positive Sodium Level 145 MMOL/L (136-145) 150 MMOL/L (136-145) H Potassium Level 3.8 MMOL/L (3.5-5.1) 3.2 MMOL/L (3.5-5.1) L Chloride Level 108 MMOL/L (98-107) H 118 MMOL/L (98-107) H Carbon Dioxide Level 6 MMOL/L (21-32) *L 19 MMOL/L (21-32) L Anion Gap 32 mmol/L (5-15) H 13 mmol/L (5-15) Blood Urea Nitrogen 70 mg/dL (7-18) H 72 mg/dL (7-18) H Creatinine 2.2 MG/DL (0.55-1.30) H 3.0 MG/DL (0.55-1.30) H Estimat Glomerular Filtration Rate 42.8 mL/min (>60) 29.9 mL/min (>60) Glucose Level 481 MG/DL (74-106) #H 132 MG/DL (74-106) #H Hemoglobin A1c 11.7 % (4.3-6.0) H Calcium Level 7.2 MG/DL (8.5-10.1) L 7.6 MG/DL (8.5-10.1) L Phosphorus Level 4.3 MG/DL (2.5-4.9) Magnesium Level 2.4 MG/DL (1.8-2.4) Total Creatine Kinase 1817 U/L (26-308) H Creatine Kinase MB 11.6 NG/ML (0.0-3.6) H Creatine Kinase MB Relative Index 0.6 White Blood Count 7.1 K/UL (4.8-10.8) # Red Blood Count 3.71 M/UL (4.70-6.10) L Hemoglobin 12.5 G/DL (14.2-18.0) L Hematocrit 33.5 % (42.0-52.0) #L Mean Corpuscular Volume 90 FL (80-99) # Mean Corpuscular Hemoglobin 33.8 PG (27.0-31.0) H Mean Corpuscular Hemoglobin Concent 37.5 G/DL (32.0-36.0) H Red Cell Distribution Width 9.7 % (11.6-14.8) L Platelet Count 175 K/UL (150-450) Mean Platelet Volume 7.3 FL (6.5-10.1) Neutrophils (%) (Auto) % (45.0-75.0) Lymphocytes (%) (Auto) % (20.0-45.0) Monocytes (%) (Auto) % (1.0-10.0) Eosinophils (%) (Auto) % (0.0-3.0) Basophils (%) (Auto) % (0.0-2.0) Differential Total Cells Counted 100 Neutrophils % (Manual) 79 % (45-75) H Lymphocytes % (Manual) 9 % (20-45) L Monocytes % (Manual) 5 % (1-10) Eosinophils % (Manual) 0 % (0-3) Basophils % (Manual) 0 % (0-2) Band Neutrophils 7 % (0-8) Platelet Estimate Adequate Platelet Morphology Normal Total Bilirubin 0.3 MG/DL (0.2-1.0) Direct Bilirubin < 0.1 MG/DL (0.0-0.3) Aspartate Amino Transf (AST/SGOT) 132 U/L (15-37) H Alanine Aminotransferase (ALT/SGPT) 64 U/L (12-78) Alkaline Phosphatase 53 U/L (46-116) Total Protein 5.2 G/DL (6.4-8.2) L Albumin 2.2 G/DL (3.4-5.0) L Globulin 3.0 g/dL Albumin/Globulin Ratio 0.7 (1.0-2.7) L Test 06/17/17 12:34 Arterial Blood pH 7.470 (7.350-7.450) Arterial Blood Partial Pressure CO2 25.1 mmHg (35.0-45.0) L Arterial Blood Partial Pressure O2 113.6 mmHg (75.0-100.0) H Arterial Blood HCO3 18.1 mmol/L (22.0-26.0) L Arterial Blood Oxygen Saturation 97.8 % (92.0-98.0) Arterial Blood Base Excess -4.0 Juanito Test Positive Current Medications Medications (Trade) Dose Ordered Sig/Conrado Route PRN Reason Start Time Stop Time Status Last Admin Dose Admin Acetaminophen (Tylenol) 650 mg Q4H PRN ORAL Mild Pain/Temp > 100.5 06/16/17 17:45 07/16/17 13:44 Atropine Sulfate (Atropine 0.4mg/ ml) 0.5 mg EVERY HOUR PRN IVP Per rx protocol 06/16/17 16:15 07/16/17 16:14 UNV Dextrose (Dextrose 50%) STAT PRN IV Hypoglycemia 06/17/17 08:15 07/17/17 08:14 Insulin Aspart (NovoLOG) EVERY 4 HOURS SUBQ 06/17/17 09:00 07/17/17 08:59 06/17/17 12:33 Insulin Detemir (Levemir) 12 units Q12HR SUBQ 06/17/17 10:00 07/17/17 09:59 06/17/17 10:19 Lorazepam (Ativan 2mg/ml 1ml) 1 mg Q4H PRN IV For Anxiety 06/16/17 18:39 06/23/17 18:38 06/17/17 04:08 Morphine Sulfate (Morphine Sulfate) 2 mg Q4HR PRN IVP Moderate Pain (Pain Scale 4-6) 06/16/17 17:00 06/23/17 00:59 Ondansetron HCl (Zofran) 4 mg Q6H PRN IVP Nausea & Vomiting 06/16/17 19:00 07/16/17 00:59 Pantoprazole (Protonix) 40 mg DAILY ORAL 06/17/17 09:00 07/16/17 08:59 06/17/17 10:15 Piperacillin Sod/ Tazobactam Sod 3.375 gm/Dextrose 110 ml @ 27.5 mls/hr Q8H IVPB 06/16/17 17:00 06/23/17 16:59 06/17/17 10:14 Sodium Chloride 1,000 ml @ 100 mls/hr Q10H IV 06/17/17 08:45 07/17/17 08:44 06/17/17 10:13 Thiamine HCl 100 mg/Folic Acid 1 mg/Multivitamins 10 ml/Sodium Chloride 1,011.2 ml @ 125 mls/ hr DAILY IV 06/17/17 09:30 07/17/17 09:29 06/17/17 10:14 Vancomycin HCl (Vanco rx to dose) 1 ea DAILY PRN MISC Per rx protocol 06/17/17 09:00 07/16/17 13:29 Vancomycin/Sodium Chloride 250 ml @ 166.667 mls/hr Q12H IVPB 06/16/17 17:00 06/21/17 16:59 06/17/17 04:50 Saad Cummings M.D. Jun 17, 2017 13:42
--- NOTE | 2017-06-17 16:00 | Consultation ---
DATE OF CONSULTATION: 06/17/2017 PULMONARY CONSULTATION REFERRING PHYSICIAN: Gopi Matson M.D. REASON FOR CONSULTATION: HISTORY OF PRESENT ILLNESS: This is a 32-year-old male with a history of diabetes mellitus. He came to the hospital for altered mental status. His workup was notable for diabetic ketoacidosis. He was also found to have evidence of THC in the urine. The patient was admitted to the hospital for subsequent management and care. The patient was also intubated. The patient had been seen by Cardiology and Nephrology. He has been noted to also have elevated troponin. PAST MEDICAL HISTORY: Diabetes mellitus only. SOCIAL HISTORY: He has a history of alcohol as well as marijuana usage. REVIEW OF SYSTEMS: Not obtainable. PHYSICAL EXAMINATION: GENERAL: The patient is a 32-year-old male. VITAL SIGNS: Blood pressure is 120/60, heart rate 110, respirations 22, and he is afebrile. HEENT: Unremarkable. CHEST: Diminished breath sounds bilaterally with normal heart sounds. ABDOMEN: Soft. There is no edema. NEUROLOGIC: The patient is unable to respond to my questions. He moves extremities to stimulation. He is breathing spontaneously. LABORATORY AND DIAGNOSTIC DATA: Lab testing this morning shows white count 7000, hemoglobin 12.5, and platelet count is 175,000. Chemistry, glucose is 132, sodium 150, and potassium 3.2. Troponin yesterday was 0.1 and 0.16. Coagulations are negative. ABG, pH 7.16, pCO2 30, and pO2 59. Toxicology positive for marijuana. Urinalysis is negative. X-ray chest per ER physician shows clear breath sounds bilaterally. There are small basilar infiltrate. IMPRESSION: 1. Possible pneumonia. 2. Cannabis usage. 3. Diabetic ketoacidosis. 4. Troponin leak. 5. Tachycardia. DISCUSSION: Agree with present management and care. The patient is at this time on vancomycin, insulin, thiamine, normal saline, and Zosyn, which I will all continue. He is also getting Ativan as needed. We will begin weaning once the patient is more stable. We will adjust vent settings to AC of 20, tidal volume 550, FiO2 80%. We will follow carefully. Thank you. Paulo Floyd M.D. DR: COLEMAN JOB#: [id number] CC:
[2017-06-18] VITALS (24 sets, daily range): BP systolic 129–187; BP diastolic 60–101
[2017-06-18] MEDS: Piperacillin/Tazobactam 3.375 GM in D5W 110 ML IVPB SCH ×3 (00:41→16:49)
[2017-06-18] MEDS: NovoLOG Insulin Flexpen SUBQ SCH ×6 (00:43→21:01)
[2017-06-18 05:31] LABS: HEMATOCRIT 30.7 % (42.0-52.0); HEMOGLOBIN 11.2 G/DL (14.2-18.0); MEAN CORPUSCULAR VOLUME 91 FL (80-99); PLATELET COUNT 122 K/UL (150-450); RED BLOOD COUNT 3.38 M/UL (4.70-6.10); RED CELL DISTRIBUTION WIDTH 10.5 % (11.6-14.8); WHITE BLOOD COUNT 9.7 K/UL (4.8-10.8)
[2017-06-18 05:48] LABS: ALANINE AMINOTRANSFERASE 156 U/L (12-78); ALBUMIN 1.9 G/DL (3.4-5.0); ALBUMIN/GLOBULIN RATIO 0.6 (1.0-2.7); ALKALINE PHOSPHATASE 66 U/L (46-116); AMYLASE 227 U/L (25-115); ANION GAP 13 mmol/L (5-15); ASPARTATE AMINO TRANSFERASE 439 U/L (15-37); BILIRUBIN,TOTAL 0.4 MG/DL (0.2-1.0); BLOOD UREA NITROGEN 71 mg/dL (7-18); CALCIUM 7.5 MG/DL (8.5-10.1); CARBON DIOXIDE 18 MMOL/L (21-32); CHLORIDE 118 MMOL/L (98-107); CHOLESTEROL 82 MG/DL (< 200); CREATININE 3.7 MG/DL (0.55-1.30); HDL CHOLESTEROL 36 MG/DL (40-60); SODIUM 149 MMOL/L (136-145); TRIGLYCERIDES 68 MG/DL (30-150)
[2017-06-18 05:56] LABS: POTASSIUM 2.4 MMOL/L (3.5-5.1)
[2017-06-18] MEDS: Vancomycin 750mg/NS 250ml 250 ML IVPB SCH (07:11)
[2017-06-18] MEDS: LORazepam Inj 2mg/ml 1ml IV PRN (07:41)
[2017-06-18] MEDS ORDERED: NS IVPB ONE (09:00)
[2017-06-18] MEDS ORDERED: POTASSIUM CHLORIDE IVPB ONE (09:00)
--- NOTE | 2017-06-18 10:15 | Pulmonology Progress Note ---
Assessment/Plan Assessment/Plan IMPRESSION: 1. Possible pneumonia. 2. Cannabis usage. 3. Diabetic ketoacidosis. 4. Troponin leak. 5. Tachycardia. DISCUSSION: Agree with present management and care. The patient is at this time on vancomycin, insulin, thiamine, normal saline, and Zosyn, which I will all continue. I will begin weaning once the patient is more stable. We will adjust vent settings to AC of 20, tidal volume 550, FiO2 80%. We will follow carefully. Tom check serum ammonia and ABg Thank you. Subjective Interval Events: Unresponsive; remains on vent Constitutional: Reports: no symptoms HEENT: Repors: no symptoms Respiratory: Reports: no symptoms Cardiovascular: Reports: no symptoms Gastrointestinal/Abdominal: Reports: no symptoms Allergies: Coded Allergies: No Known Allergies (Unverified , 06/15/17) Objective Last 24 Hour Vital Signs Date Time Temp Pulse Resp B/P (MAP) Pulse Ox O2 Delivery O2 Flow Rate FiO2 06/18/17 08:53 107 29 45 06/18/17 08:00 45 06/18/17 08:00 99.9 100 25 153/100 100 Mechanical Ventilator 45 06/18/17 07:28 103 34 45 06/18/17 07:00 102 23 176/97 100 Mechanical Ventilator 45 06/18/17 06:00 155 23 173/98 100 Mechanical Ventilator 45 06/18/17 05:23 96 26 45 06/18/17 05:00 93 23 155/60 100 Mechanical Ventilator 45 06/18/17 04:00 45 06/18/17 04:00 99.9 92 23 151/88 100 Mechanical Ventilator 45 06/18/17 04:00 96 06/18/17 03:14 92 23 45 06/18/17 03:00 94 23 134/77 100 Mechanical Ventilator 45 06/18/17 02:00 98 25 129/76 100 Mechanical Ventilator 45 06/18/17 01:49 103 30 45 06/18/17 01:41 101.0 06/18/17 01:00 102.2 110 31 145/87 100 Mechanical Ventilator 45 06/18/17 00:00 111 06/18/17 00:00 108 31 155/95 100 Mechanical Ventilator 45 06/17/17 23:53 108 37 45 06/17/17 23:00 109 31 152/95 99 Mechanical Ventilator 45 06/17/17 22:00 109 32 143/88 99 Mechanical Ventilator 45 06/17/17 21:00 109 32 136/84 98 Mechanical Ventilator 45 06/17/17 20:49 110 33 45 06/17/17 20:16 110 32 45 06/17/17 20:00 99.2 111 30 151/81 97 Mechanical Ventilator 45 06/17/17 20:00 111 06/17/17 20:00 45 06/17/17 19:00 109 32 157/94 95 Mechanical Ventilator 45 06/17/17 18:00 108 30 144/84 94 Mechanical Ventilator 45 06/17/17 17:00 114 28 166/105 99 Mechanical Ventilator 45 06/17/17 16:46 108 27 45 06/17/17 16:00 99.0 113 29 149/105 100 Mechanical Ventilator 45 06/17/17 16:00 45 06/17/17 16:00 114 06/17/17 15:00 114 29 150/99 99 Mechanical Ventilator 45 06/17/17 14:55 115 29 45 06/17/17 14:00 111 30 157/108 99 Mechanical Ventilator 45 06/17/17 13:00 109 27 148/112 99 Mechanical Ventilator 45 06/17/17 12:45 106 35 45 06/17/17 12:00 98.3 111 29 145/98 100 Mechanical Ventilator 45 06/17/17 12:00 108 06/17/17 12:00 60 06/17/17 11:00 111 29 121/76 99 Mechanical Ventilator 60 06/17/17 10:36 111 28 60 Intake and Output 06/17/17 06/18/17 19:00 07:00 Intake Total 2327.5 ml 1297.5 ml Output Total 715 ml 1190 ml Balance 1612.5 ml 107.5 ml Intake IV Total 2237.5 ml 1237.5 ml Other 90 ml 60 ml Output Urine Total 715 ml 1190 ml General Appearance: no acute distress HEENT: normocephalic Respiratory/Chest: chest wall non-tender, lungs clear Cardiovascular: normal peripheral pulses Abdomen: normal bowel sounds Microbiology Date/Time Source Procedure Growth Status 06/15/17 21:25 Blood Blood Culture - Preliminary NO GROWTH AFTER 48 HOURS Resulted 06/15/17 21:10 Blood Blood Culture - Preliminary NO GROWTH AFTER 48 HOURS Resulted 06/16/17 02:25 Nasal Nares MRSA Culture - Final NO METHICILLIN RESISTANT STAPH AUREUS... Complete 06/16/17 02:25 Rectum VRE Culture - Final NO VANCOMYCIN RESISTANT ENTEROCOCCUS ... Complete Laboratory Tests 06/17/17 10:32: Arterial Blood pH 7.450, Arterial Blood Partial Pressure CO2 25.4L, Arterial Blood Partial Pressure O2 88.4, Arterial Blood HCO3 17.5L, Arterial Blood Oxygen Saturation 97.1, Arterial Blood Base Excess -4.8, Juanito Test Positive 06/17/17 12:34: Arterial Blood pH 7.470H, Arterial Blood Partial Pressure CO2 25.1L, Arterial Blood Partial Pressure O2 113.6H, Arterial Blood HCO3 18.1L, Arterial Blood Oxygen Saturation 97.8, Arterial Blood Base Excess -4.0, Juanito Test Positive 06/17/17 16:20: Vancomycin Level Trough 10.3 06/18/17 04:50: Vancomycin Level Trough 24.7H, White Blood Count 9.7, Red Blood Count 3.38L, Hemoglobin 11.2L, Hematocrit 30.7L, Mean Corpuscular Volume 91, Mean Corpuscular Hemoglobin 33.2H, Mean Corpuscular Hemoglobin Concent 36.5H, Red Cell Distribution Width 10.5L, Platelet Count 122L, Mean Platelet Volume 6.9, Neutrophils (%) (Auto) , Lymphocytes (%) (Auto) , Monocytes (%) (Auto) , Eosinophils (%) (Auto) , Basophils (%) (Auto) , Sodium Level 149H, Potassium Level 2.4*L, Chloride Level 118H, Carbon Dioxide Level 18L, Anion Gap 13, Blood Urea Nitrogen 71H, Creatinine 3.7H, Estimat Glomerular Filtration Rate 23.5, Glucose Level 46L, Calcium Level 7.5L, Total Bilirubin 0.4, Aspartate Amino Transf (AST/SGOT) 439H, Alanine Aminotransferase (ALT/SGPT) 156H, Alkaline Phosphatase 66, Total Protein 5.3L, Albumin 1.9L, Globulin 3.4, Albumin/ Globulin Ratio 0.6L, Triglycerides Level 68, Cholesterol Level 82, LDL Cholesterol 35, HDL Cholesterol 36L, Cholesterol/HDL Ratio 2.3L, Amylase Level 227H, Lipase 1021H Current Medications Medications (Trade) Dose Ordered Sig/Conrado Route PRN Reason Start Time Stop Time Status Last Admin Dose Admin Acetaminophen (Tylenol) 650 mg Q4H PRN ORAL Mild Pain/Temp > 100.5 06/16/17 17:45 07/16/17 13:44 06/18/17 00:42 Atropine Sulfate (Atropine 1mg/ml Inj) 0.5 mg EVERY HOUR PRN IVP HR<35 BPM 06/16/17 16:15 07/16/17 16:14 Dextrose (Dextrose 50%) STAT PRN IV Hypoglycemia 06/17/17 08:15 07/17/17 08:14 06/18/17 05:25 Dextrose/ Electrolytes 1,000 ml @ 100 mls/hr Q10H IV 06/18/17 09:00 07/18/17 08:59 Insulin Aspart (NovoLOG) EVERY 4 HOURS SUBQ 06/17/17 09:00 07/17/17 08:59 06/18/17 00:43 Insulin Detemir (Levemir) 12 units Q12HR SUBQ 06/17/17 10:00 07/17/17 09:59 06/17/17 20:33 Lorazepam (Ativan 2mg/ml 1ml) 1 mg Q4H PRN IV For Anxiety 06/16/17 18:39 06/23/17 18:38 06/18/17 07:41 Morphine Sulfate (Morphine Sulfate) 2 mg Q4HR PRN IVP Moderate Pain (Pain Scale 4-6) 06/16/17 17:00 06/23/17 00:59 Ondansetron HCl (Zofran) 4 mg Q6H PRN IVP Nausea & Vomiting 06/16/17 19:00 07/16/17 00:59 Pantoprazole (Protonix) 40 mg ACBREAKFAST ORAL 06/19/17 06:30 07/17/17 08:59 Piperacillin Sod/ Tazobactam Sod 3.375 gm/Dextrose 110 ml @ 27.5 mls/hr Q8H IVPB 06/16/17 17:00 06/23/17 16:59 06/18/17 09:27 Potassium Chloride 40 meq/ Sodium Chloride 295 ml @ 73.75 mls/ hr ONCE ONCE IVPB 06/18/17 09:00 06/18/17 12:59 Thiamine HCl 100 mg/Folic Acid 1 mg/Multivitamins 10 ml/Sodium Chloride 1,011.2 ml @ 125 mls/ hr DAILY IV 06/17/17 09:30 07/17/17 09:29 1/7/18 10:14 Vancomycin HCl (Vanco rx to dose) 1 ea DAILY PRN MISC Per rx protocol 06/17/17 09:00 07/16/17 13:29 Vancomycin HCl 1 gm/Dextrose 275 ml @ 183.708 mls/hr ONCE ONCE IVPB 06/19/17 09:00 06/19/17 10:29 Paulo Floyd MD Jun 18, 2017 10:15
[2017-06-18] MEDS: D5 1/2NS w/KCl 20mEq 1,000 ML IV SCH ×2 (10:57→19:30)
[2017-06-18] MEDS: MULTIVITAMIN IV SCH (10:57)
[2017-06-18] MEDS: THIAMINE HCL IV SCH (10:57)
[2017-06-18] MEDS: FOLIC ACID IV SCH (10:57)
[2017-06-18] MEDS: [UNRECOGNIZED DRUG - OTHER] IV SCH (10:57)
[2017-06-18] MEDS: Levemir Flexpen SUBQ SCH ×2 (11:03→21:00)
--- NOTE | 2017-06-18 12:49 | Cardiac Electrophysiology PN ---
Assessment/Plan Assessment/Plan 1. Troponin leak. Peak levels are flat and likely due to renal failure. The creatinine was 2.4 on admission. Echocardiogram EF60% 2. Tachycardia due to diabetic ketoacidosis, possible sepsis. 3. Respiratory failure on Vent 4. Pneumonia, on vancomycin and Zosyn for coverage per Dr. Cummings. 5. Pancreatitis. 6. Alcohol withdrawal. 7. Marijuana use. REFUGIO RN Subjective Subjective In ICU on vent.No SVT or VT or yusuf. Just sinus tach Objective Last 24 Hour Vital Signs Date Time Temp Pulse Resp B/P (MAP) Pulse Ox O2 Delivery O2 Flow Rate FiO2 06/18/17 11:09 107 30 45 06/18/17 10:00 109 29 153/96 100 Mechanical Ventilator 45 06/18/17 09:00 111 29 151/89 100 Mechanical Ventilator 45 06/18/17 08:53 107 29 45 06/18/17 08:00 45 06/18/17 08:00 103 06/18/17 08:00 99.9 100 25 153/100 100 Mechanical Ventilator 45 06/18/17 07:28 103 34 45 06/18/17 07:00 102 23 176/97 100 Mechanical Ventilator 45 06/18/17 06:00 155 23 173/98 100 Mechanical Ventilator 45 06/18/17 05:23 96 26 45 06/18/17 05:00 93 23 155/60 100 Mechanical Ventilator 45 06/18/17 04:00 45 06/18/17 04:00 99.9 92 23 151/88 100 Mechanical Ventilator 45 06/18/17 04:00 96 06/18/17 03:14 92 23 45 06/18/17 03:00 94 23 134/77 100 Mechanical Ventilator 45 06/18/17 02:00 98 25 129/76 100 Mechanical Ventilator 45 06/18/17 01:49 103 30 45 06/18/17 01:41 101.0 06/18/17 01:00 102.2 110 31 145/87 100 Mechanical Ventilator 45 06/18/17 00:00 111 06/18/17 00:00 108 31 155/95 100 Mechanical Ventilator 45 06/17/17 23:53 108 37 45 06/17/17 23:00 109 31 152/95 99 Mechanical Ventilator 45 06/17/17 22:00 109 32 143/88 99 Mechanical Ventilator 45 06/17/17 21:00 109 32 136/84 98 Mechanical Ventilator 45 06/17/17 20:49 110 33 45 06/17/17 20:16 110 32 45 06/17/17 20:00 99.2 111 30 151/81 97 Mechanical Ventilator 45 06/17/17 20:00 111 06/17/17 20:00 45 06/17/17 19:00 109 32 157/94 95 Mechanical Ventilator 45 06/17/17 18:00 108 30 144/84 94 Mechanical Ventilator 45 06/17/17 17:00 114 28 166/105 99 Mechanical Ventilator 45 06/17/17 16:46 108 27 45 06/17/17 16:00 99.0 113 29 149/105 100 Mechanical Ventilator 45 06/17/17 16:00 45 06/17/17 16:00 114 06/17/17 15:00 114 29 150/99 99 Mechanical Ventilator 45 06/17/17 14:55 115 29 45 06/17/17 14:00 111 30 157/108 99 Mechanical Ventilator 45 06/17/17 13:00 109 27 148/112 99 Mechanical Ventilator 45 Intake and Output 06/17/17 06/18/17 19:00 07:00 Intake Total 2327.5 ml 1397.5 ml Output Total 715 ml 1190 ml Balance 1612.5 ml 207.5 ml Intake IV Total 2237.5 ml 1337.5 ml Other 90 ml 60 ml Output Urine Total 715 ml 1190 ml Laboratory Tests Test 06/17/17 16:20 06/18/17 04:50 06/18/17 10:30 Vancomycin Level Trough 10.3 ug/mL (5.0-12.0) 24.7 ug/mL (5.0-12.0) H White Blood Count 9.7 K/UL (4.8-10.8) Red Blood Count 3.38 M/UL (4.70-6.10) L Hemoglobin 11.2 G/DL (14.2-18.0) L Hematocrit 30.7 % (42.0-52.0) L Mean Corpuscular Volume 91 FL (80-99) Mean Corpuscular Hemoglobin 33.2 PG (27.0-31.0) H Mean Corpuscular Hemoglobin Concent 36.5 G/DL (32.0-36.0) H Red Cell Distribution Width 10.5 % (11.6-14.8) L Platelet Count 122 K/UL (150-450) L Mean Platelet Volume 6.9 FL (6.5-10.1) Neutrophils (%) (Auto) % (45.0-75.0) Lymphocytes (%) (Auto) % (20.0-45.0) Monocytes (%) (Auto) % (1.0-10.0) Eosinophils (%) (Auto) % (0.0-3.0) Basophils (%) (Auto) % (0.0-2.0) Sodium Level 149 MMOL/L (136-145) H Potassium Level 2.4 MMOL/L (3.5-5.1) *L Chloride Level 118 MMOL/L (98-107) H Carbon Dioxide Level 18 MMOL/L (21-32) L Anion Gap 13 mmol/L (5-15) Blood Urea Nitrogen 71 mg/dL (7-18) H Creatinine 3.7 MG/DL (0.55-1.30) H Estimat Glomerular Filtration Rate 23.5 mL/min (>60) Glucose Level 46 MG/DL (74-106) L Calcium Level 7.5 MG/DL (8.5-10.1) L Total Bilirubin 0.4 MG/DL (0.2-1.0) Aspartate Amino Transf (AST/SGOT) 439 U/L (15-37) H Alanine Aminotransferase (ALT/SGPT) 156 U/L (12-78) H Alkaline Phosphatase 66 U/L (46-116) Total Protein 5.3 G/DL (6.4-8.2) L Albumin 1.9 G/DL (3.4-5.0) L Globulin 3.4 g/dL Albumin/Globulin Ratio 0.6 (1.0-2.7) L Triglycerides Level 68 MG/DL (30-150) Cholesterol Level 82 MG/DL (< 200) LDL Cholesterol 35 mg/dL (<100) HDL Cholesterol 36 MG/DL (40-60) L Cholesterol/HDL Ratio 2.3 (3.3-4.4) L Amylase Level 227 U/L (25-115) H Lipase 1021 U/L (73-393) H Arterial Blood pH 7.482 (7.350-7.450) Arterial Blood Partial Pressure CO2 28.2 mmHg (35.0-45.0) L Arterial Blood Partial Pressure O2 124.7 mmHg (75.0-100.0) H Arterial Blood HCO3 20.6 mmol/L (22.0-26.0) L Arterial Blood Oxygen Saturation 98.0 % (92.0-98.0) Arterial Blood Base Excess -1.8 Juanito Test Positive Ammonia 33 umol/L (11-32) H Microbiology Date/Time Source Procedure Growth Status 06/15/17 21:25 Blood Blood Culture - Preliminary NO GROWTH AFTER 48 HOURS Resulted 06/15/17 21:10 Blood Blood Culture - Preliminary NO GROWTH AFTER 48 HOURS Resulted 06/16/17 02:25 Nasal Nares MRSA Culture - Final NO METHICILLIN RESISTANT STAPH AUREUS... Complete 06/16/17 02:25 Rectum VRE Culture - Final NO VANCOMYCIN RESISTANT ENTEROCOCCUS ... Complete Objective HEAD AND NECK: Showed no JVD.Orally intubated LUNGS: Clear. CARDIOVASCULAR: Tachycardic. S1 and S2 with no gallop or murmur. ABDOMEN: Soft and nontender. EXTREMITIES: No pitting edema. ALBERT ROWAN Jun 18, 2017 12:49
--- NOTE | 2017-06-18 13:59 | Infectious Diseases Prog Note ---
Assessment/Plan Problems: (1) Pneumonia Assessment & Plan: with diffuse patchy infiltrates, suspect aspiration due to altered mental status , await sputum culture, continue zosyn empiric coverage for now . stop vancomycin to avoid nephrotoxicity . repeat CXR (2) Sepsis Assessment & Plan: due to the above, await blood culture, continue zosyn empirically, stop vancomycin (3) Pancreatitis Assessment & Plan: suspect due to alchol abuse, monitor lipase, keep npo, GI follow up (4) DKA (diabetic ketoacidosis) Assessment & Plan: S/P insulin drip ,continue close monitor of blood glucose (5) Acidosis Assessment & Plan: due to the above , continue hydration (6) Alcohol withdrawal Assessment & Plan: on CIWA protocol , continue close monitor in ICU (7) Fever Assessment & Plan: suspect due to the above , continue tylenol empirically, monitor culture (8) Cardiopulmonary arrest Assessment & Plan: intubated on mechanical ventilation , monitor ABG, cardiology and pulmonary team are following Subjective ROS Limited/Unobtainable: Yes Allergies: Coded Allergies: No Known Allergies (Unverified , 06/15/17) Subjective he is intubated on mechanical ventilation , comfortable, not agitated , tachycardic , and febrile, no diarrhea or significant secretions , father at the bedside Objective Vital Signs Last 24 Hour Vital Signs Date Time Temp Pulse Resp B/P (MAP) Pulse Ox O2 Delivery O2 Flow Rate FiO2 06/18/17 13:05 107 21 45 06/18/17 13:00 108 23 133/84 100 Mechanical Ventilator 45 06/18/17 12:00 109 06/18/17 12:00 110 29 158/92 100 Mechanical Ventilator 45 06/18/17 12:00 45 06/18/17 11:09 107 30 45 06/18/17 11:00 109 28 136/92 100 Mechanical Ventilator 45 06/18/17 10:00 109 29 153/96 100 Mechanical Ventilator 45 06/18/17 09:00 111 29 151/89 100 Mechanical Ventilator 45 06/18/17 08:53 107 29 45 06/18/17 08:00 45 06/18/17 08:00 103 06/18/17 08:00 99.9 100 25 153/100 100 Mechanical Ventilator 45 06/18/17 07:28 103 34 45 06/18/17 07:00 102 23 176/97 100 Mechanical Ventilator 45 06/18/17 06:00 155 23 173/98 100 Mechanical Ventilator 45 06/18/17 05:23 96 26 45 06/18/17 05:00 93 23 155/60 100 Mechanical Ventilator 45 06/18/17 04:00 45 06/18/17 04:00 99.9 92 23 151/88 100 Mechanical Ventilator 45 06/18/17 04:00 96 06/18/17 03:14 92 23 45 06/18/17 03:00 94 23 134/77 100 Mechanical Ventilator 45 06/18/17 02:00 98 25 129/76 100 Mechanical Ventilator 45 06/18/17 01:49 103 30 45 06/18/17 01:41 101.0 06/18/17 01:00 102.2 110 31 145/87 100 Mechanical Ventilator 45 06/18/17 00:00 111 06/18/17 00:00 108 31 155/95 100 Mechanical Ventilator 45 06/17/17 23:53 108 37 45 06/17/17 23:00 109 31 152/95 99 Mechanical Ventilator 45 06/17/17 22:00 109 32 143/88 99 Mechanical Ventilator 45 06/17/17 21:00 109 32 136/84 98 Mechanical Ventilator 45 06/17/17 20:49 110 33 45 06/17/17 20:16 110 32 45 06/17/17 20:00 99.2 111 30 151/81 97 Mechanical Ventilator 45 06/17/17 20:00 111 06/17/17 20:00 45 06/17/17 19:00 109 32 157/94 95 Mechanical Ventilator 45 06/17/17 18:00 108 30 144/84 94 Mechanical Ventilator 45 06/17/17 17:00 114 28 166/105 99 Mechanical Ventilator 45 06/17/17 16:46 108 27 45 06/17/17 16:00 99.0 113 29 149/105 100 Mechanical Ventilator 45 06/17/17 16:00 45 06/17/17 16:00 114 06/17/17 15:00 114 29 150/99 99 Mechanical Ventilator 45 06/17/17 14:55 115 29 45 06/17/17 14:00 111 30 157/108 99 Mechanical Ventilator 45 Height (Feet): 5 Height (Inches): 7.00 Weight (Pounds): 112 General Appearance: WD/WN, no acute distress, cachetic HEENT: normocephalic, atraumatic, anicteric, supple, no JVD Respiratory/Chest: no respiratory distress, no accessory muscle use, decreased breath sounds, crackles/rales Cardiovascular: normal peripheral pulses, regular rhythm, no gallop/murmur, no JVD, tachycardia Abdomen: soft, non tender, no organomegaly, non distended, no mass, no scars, hypoactive bowel sounds Extremities: no cyanosis, no clubbing Skin: no rash, no lesions, no ulcers Neurologic/Psychiatric: unresponsiveness Microbiology Date/Time Source Procedure Growth Status 06/15/17 21:25 Blood Blood Culture - Preliminary NO GROWTH AFTER 48 HOURS Resulted 06/15/17 21:10 Blood Blood Culture - Preliminary NO GROWTH AFTER 48 HOURS Resulted 06/16/17 02:25 Nasal Nares MRSA Culture - Final NO METHICILLIN RESISTANT STAPH AUREUS... Complete 06/16/17 02:25 Rectum VRE Culture - Final NO VANCOMYCIN RESISTANT ENTEROCOCCUS ... Complete Laboratory Tests Test 06/17/17 16:20 06/18/17 04:50 06/18/17 10:30 Vancomycin Level Trough 10.3 ug/mL (5.0-12.0) 24.7 ug/mL (5.0-12.0) H White Blood Count 9.7 K/UL (4.8-10.8) Red Blood Count 3.38 M/UL (4.70-6.10) L Hemoglobin 11.2 G/DL (14.2-18.0) L Hematocrit 30.7 % (42.0-52.0) L Mean Corpuscular Volume 91 FL (80-99) Mean Corpuscular Hemoglobin 33.2 PG (27.0-31.0) H Mean Corpuscular Hemoglobin Concent 36.5 G/DL (32.0-36.0) H Red Cell Distribution Width 10.5 % (11.6-14.8) L Platelet Count 122 K/UL (150-450) L Mean Platelet Volume 6.9 FL (6.5-10.1) Neutrophils (%) (Auto) % (45.0-75.0) Lymphocytes (%) (Auto) % (20.0-45.0) Monocytes (%) (Auto) % (1.0-10.0) Eosinophils (%) (Auto) % (0.0-3.0) Basophils (%) (Auto) % (0.0-2.0) Sodium Level 149 MMOL/L (136-145) H Potassium Level 2.4 MMOL/L (3.5-5.1) *L Chloride Level 118 MMOL/L (98-107) H Carbon Dioxide Level 18 MMOL/L (21-32) L Anion Gap 13 mmol/L (5-15) Blood Urea Nitrogen 71 mg/dL (7-18) H Creatinine 3.7 MG/DL (0.55-1.30) H Estimat Glomerular Filtration Rate 23.5 mL/min (>60) Glucose Level 46 MG/DL (74-106) L Calcium Level 7.5 MG/DL (8.5-10.1) L Total Bilirubin 0.4 MG/DL (0.2-1.0) Aspartate Amino Transf (AST/SGOT) 439 U/L (15-37) H Alanine Aminotransferase (ALT/SGPT) 156 U/L (12-78) H Alkaline Phosphatase 66 U/L (46-116) Total Protein 5.3 G/DL (6.4-8.2) L Albumin 1.9 G/DL (3.4-5.0) L Globulin 3.4 g/dL Albumin/Globulin Ratio 0.6 (1.0-2.7) L Triglycerides Level 68 MG/DL (30-150) Cholesterol Level 82 MG/DL (< 200) LDL Cholesterol 35 mg/dL (<100) HDL Cholesterol 36 MG/DL (40-60) L Cholesterol/HDL Ratio 2.3 (3.3-4.4) L Amylase Level 227 U/L (25-115) H Lipase 1021 U/L (73-393) H Arterial Blood pH 7.482 (7.350-7.450) Arterial Blood Partial Pressure CO2 28.2 mmHg (35.0-45.0) L Arterial Blood Partial Pressure O2 124.7 mmHg (75.0-100.0) H Arterial Blood HCO3 20.6 mmol/L (22.0-26.0) L Arterial Blood Oxygen Saturation 98.0 % (92.0-98.0) Arterial Blood Base Excess -1.8 Juanito Test Positive Ammonia 33 umol/L (11-32) H Current Medications Medications (Trade) Dose Ordered Sig/Conrado Route PRN Reason Start Time Stop Time Status Last Admin Dose Admin Acetaminophen (Tylenol) 650 mg Q4H PRN ORAL Mild Pain/Temp > 100.5 06/16/17 17:45 07/16/17 13:44 06/18/17 00:42 Atropine Sulfate (Atropine 1mg/ml Inj) 0.5 mg EVERY HOUR PRN IVP HR<35 BPM 06/16/17 16:15 07/16/17 16:14 Clonidine HCl (Catapres) 0.1 mg Q2H PRN ORAL SBP Greater than 170 06/18/17 12:30 07/18/17 12:29 Dextrose (Dextrose 50%) STAT PRN IV Hypoglycemia 06/17/17 08:15 07/17/17 08:14 06/18/17 05:25 Dextrose/ Electrolytes 1,000 ml @ 100 mls/hr Q10H IV 06/18/17 09:00 07/18/17 08:59 06/18/17 10:57 Insulin Aspart (NovoLOG) EVERY 4 HOURS SUBQ 06/17/17 09:00 07/17/17 08:59 06/18/17 00:43 Insulin Detemir (Levemir) 9 units Q12HR SUBQ 06/18/17 21:00 07/18/17 20:59 Lorazepam (Ativan 2mg/ml 1ml) 1 mg Q4H PRN IV For Anxiety 06/16/17 18:39 06/23/17 18:38 06/18/17 07:41 Morphine Sulfate (Morphine Sulfate) 2 mg Q4HR PRN IVP Moderate Pain (Pain Scale 4-6) 06/16/17 17:00 06/23/17 00:59 Ondansetron HCl (Zofran) 4 mg Q6H PRN IVP Nausea & Vomiting 06/16/17 19:00 07/16/17 00:59 Pantoprazole (Protonix) 40 mg ACBREAKFAST ORAL 06/19/17 06:30 07/17/17 08:59 Piperacillin Sod/ Tazobactam Sod 3.375 gm/Dextrose 110 ml @ 27.5 mls/hr Q8H IVPB 06/16/17 17:00 06/23/17 16:59 06/18/17 09:27 Thiamine HCl 100 mg/Folic Acid 1 mg/Multivitamins 10 ml/Sodium Chloride 1,011.2 ml @ 125 mls/ hr DAILY IV 06/17/17 09:30 07/17/17 09:29 06/18/17 10:57 Saad Cummings M.D. Jun 18, 2017 13:59
[2017-06-18 15:01] LABS: ANION GAP 12 mmol/L (5-15); BLOOD UREA NITROGEN 71 mg/dL (7-18); CALCIUM 6.8 MG/DL (8.5-10.1); CARBON DIOXIDE 21 MMOL/L (21-32); CHLORIDE 120 MMOL/L (98-107); CREATININE 3.7 MG/DL (0.55-1.30); POTASSIUM 3.1 MMOL/L (3.5-5.1); SODIUM 153 MMOL/L (136-145)
--- NOTE | 2017-06-18 16:34 | GI Initial Consult Note ---
History of Present Illness General Date patient seen: Jun 18, 2017 Time patient seen: 16:33 Reason for Hospitalization: Abnormal Labs Referring physician: REMIGIO KNOX Reason for Consultation: ABNORMAL LFTs Present Illness HPI Patient presents emergency department today with weakness altered mental status and tachypnea. According to patient's family patient has a history of free diabetes. Otherwise there were no further history available. Patient apparently watches cars. Patient was noted to be very weak and not getting out of bed and very confused today. Patient was tachypnea. Paramedics were contacted and discovered the patient's sugar was critical high. Patient was started on fluid bolus.No other modifying factors. No other associated signs and symptoms. No other complaints were noted. GI consulted for abnormal LFTs, pancreatitis. HPI noted above. ROS limited, intubated with OGT. Pt seen on floor, asleep on mechanical vent with OGT. No other history can be provided. Labs show anemia, hypokalemia, rising LFTs, elevated lipase, renal insufficiency and positive utox for marijuana. Unknown history of endoscopies / colonoscopies. Home Meds Reported Medications No Known Medications* (NKM - No Known Medications*) ., 0 ., 0 Refills 06/16/17 Med list reviewed/reconciled: Yes Allergies: Coded Allergies: No Known Allergies (Unverified , 06/15/17) Patient History Limited by: medical condition PMH Narrative Past Medical History: none Past Surgical History: none Pertinent Family History: none Social History: Denies: smoking, alcohol use, drug use Reviewed Nursing Documentation: PMH: Agreed, PSxH: Agreed Nursing Documentation-PMH Past Medical History: No Stated History Social History: Reports: drug use - MJ positive on utox Review of Systems All Other Systems: limited Physical Exam Vital Signs Date Time Temp Pulse Resp B/P (MAP) Pulse Ox O2 Delivery O2 Flow Rate FiO2 06/15/17 20:10 68 18 135/68 97 06/15/17 20:30 95.6 Room Air 06/16/17 15:26 100 Labs Laboratory Tests Test 06/18/17 04:50 06/18/17 10:30 06/18/17 14:20 White Blood Count 9.7 K/UL (4.8-10.8) Red Blood Count 3.38 M/UL (4.70-6.10) L Hemoglobin 11.2 G/DL (14.2-18.0) L Hematocrit 30.7 % (42.0-52.0) L Mean Corpuscular Volume 91 FL (80-99) Mean Corpuscular Hemoglobin 33.2 PG (27.0-31.0) H Mean Corpuscular Hemoglobin Concent 36.5 G/DL (32.0-36.0) H Red Cell Distribution Width 10.5 % (11.6-14.8) L Platelet Count 122 K/UL (150-450) L Mean Platelet Volume 6.9 FL (6.5-10.1) Neutrophils (%) (Auto) % (45.0-75.0) Lymphocytes (%) (Auto) % (20.0-45.0) Monocytes (%) (Auto) % (1.0-10.0) Eosinophils (%) (Auto) % (0.0-3.0) Basophils (%) (Auto) % (0.0-2.0) Sodium Level 149 MMOL/L (136-145) H 153 MMOL/L (136-145) H Potassium Level 2.4 MMOL/L (3.5-5.1) *L 3.1 MMOL/L (3.5-5.1) L Chloride Level 118 MMOL/L (98-107) H 120 MMOL/L (98-107) H Carbon Dioxide Level 18 MMOL/L (21-32) L 21 MMOL/L (21-32) Anion Gap 13 mmol/L (5-15) 12 mmol/L (5-15) Blood Urea Nitrogen 71 mg/dL (7-18) H 71 mg/dL (7-18) H Creatinine 3.7 MG/DL (0.55-1.30) H 3.7 MG/DL (0.55-1.30) H Estimat Glomerular Filtration Rate 23.5 mL/min (>60) 23.5 mL/min (>60) Glucose Level 46 MG/DL (74-106) L 108 MG/DL (74-106) H Calcium Level 7.5 MG/DL (8.5-10.1) L 6.8 MG/DL (8.5-10.1) L Total Bilirubin 0.4 MG/DL (0.2-1.0) Aspartate Amino Transf (AST/SGOT) 439 U/L (15-37) H Alanine Aminotransferase (ALT/SGPT) 156 U/L (12-78) H Alkaline Phosphatase 66 U/L (46-116) Total Protein 5.3 G/DL (6.4-8.2) L Albumin 1.9 G/DL (3.4-5.0) L Globulin 3.4 g/dL Albumin/Globulin Ratio 0.6 (1.0-2.7) L Triglycerides Level 68 MG/DL (30-150) Cholesterol Level 82 MG/DL (< 200) LDL Cholesterol 35 mg/dL (<100) HDL Cholesterol 36 MG/DL (40-60) L Cholesterol/HDL Ratio 2.3 (3.3-4.4) L Amylase Level 227 U/L (25-115) H Lipase 1021 U/L (73-393) H Vancomycin Level Trough 24.7 ug/mL (5.0-12.0) H Arterial Blood pH 7.482 (7.350-7.450) Arterial Blood Partial Pressure CO2 28.2 mmHg (35.0-45.0) L Arterial Blood Partial Pressure O2 124.7 mmHg (75.0-100.0) H Arterial Blood HCO3 20.6 mmol/L (22.0-26.0) L Arterial Blood Oxygen Saturation 98.0 % (92.0-98.0) Arterial Blood Base Excess -1.8 Juanito Test Positive Ammonia 33 umol/L (11-32) H General Appearance: mild distress Head: normocephalic Neck: supple Respiratory: other Cardiovascular: normal rate Gastrointestinal: soft Skin: normal inspection, normal color, no rash, warm/dry Lymphatic: normal inspection, no adenopathy Current Medications Current Medications Medications (Trade) Dose Ordered Sig/Conrado Route PRN Reason Start Time Stop Time Status Last Admin Dose Admin Acetaminophen (Tylenol) 650 mg Q4H PRN ORAL Mild Pain/Temp > 100.5 06/16/17 17:45 07/16/17 13:44 06/18/17 00:42 Atropine Sulfate (Atropine 1mg/ml Inj) 0.5 mg EVERY HOUR PRN IVP HR<35 BPM 06/16/17 16:15 07/16/17 16:14 Clonidine HCl (Catapres) 0.1 mg Q2H PRN ORAL SBP Greater than 170 06/18/17 12:30 07/18/17 12:29 Dextrose (Dextrose 50%) STAT PRN IV Hypoglycemia 06/17/17 08:15 07/17/17 08:14 06/18/17 05:25 Dextrose/ Electrolytes 1,000 ml @ 100 mls/hr Q10H IV 06/18/17 09:00 07/18/17 08:59 06/18/17 10:57 Insulin Aspart (NovoLOG) EVERY 4 HOURS SUBQ 06/17/17 09:00 07/17/17 08:59 06/18/17 00:43 Insulin Detemir (Levemir) 9 units Q12HR SUBQ 06/18/17 21:00 07/18/17 20:59 Lorazepam (Ativan 2mg/ml 1ml) 1 mg Q4H PRN IV For Anxiety 06/16/17 18:39 06/23/17 18:38 06/18/17 07:41 Morphine Sulfate (Morphine Sulfate) 2 mg Q4HR PRN IVP Moderate Pain (Pain Scale 4-6) 06/16/17 17:00 06/23/17 00:59 Ondansetron HCl (Zofran) 4 mg Q6H PRN IVP Nausea & Vomiting 06/16/17 19:00 07/16/17 00:59 Pantoprazole (Protonix) 40 mg ACBREAKFAST ORAL 06/19/17 06:30 07/17/17 08:59 Piperacillin Sod/ Tazobactam Sod 3.375 gm/Dextrose 110 ml @ 27.5 mls/hr Q8H IVPB 06/16/17 17:00 06/23/17 16:59 06/18/17 09:27 Thiamine HCl 100 mg/Folic Acid 1 mg/Multivitamins 10 ml/Sodium Chloride 1,011.2 ml @ 125 mls/ hr DAILY IV 06/17/17 09:30 07/17/17 09:29 06/18/17 10:57 GI: Plan Problems: (1) Alcohol withdrawal (2) Pancreatitis (3) Metabolic acidosis (4) DKA (diabetic ketoacidosis) (5) Transaminitis Plan utox positive marijuana macrocytic hyperchromic anemia defer GI procedures at this time, respiratory status not stable maintain NPO + IVFs at this time given DKA DM mgmt banana bag electrolyte correction follow LFTs, avoid hepatoxic drugs follow lipase ppi BID anemia work up OB stool r/o GI bleed monitor H&H, prn transfusions fu labs, B12/folate Lashawn Mason N.P. Jun 18, 2017 16:34
--- NOTE | 2017-06-18 17:55 | Nephrology Progress Note ---
Assessment/Plan Problem List: (1) Hypernatremia (2) Hypokalemia (3) Fever (4) Acidosis (5) Respiratory distress (6) Pancreatitis (7) Elevated troponin (8) Alcohol withdrawal (9) Pneumonia (10) Sepsis (11) Cardiopulmonary arrest (12) Metabolic acidosis (13) DKA (diabetic ketoacidosis) Plan Continue current IVF+K to replete K and correct sodium Strict glycemic control BP control Monitor lytes, correct prn Monitor neuro status Monitor renal function Avoid nephrotoxins Monitor for withdrawal symptoms Abx per ID F/U with consults AM labs Subjective ROS Limited/Unobtainable: Yes Subjective Seen in the ICU, orally intubated on vent settings, non responsive at this time , adequate urine output noted via carpenter, family at bedside Objective Objective Last 24 Hour Vital Signs Date Time Temp Pulse Resp B/P (MAP) Pulse Ox O2 Delivery O2 Flow Rate FiO2 06/18/17 17:08 104 29 45 06/18/17 17:00 107 25 130/82 100 Mechanical Ventilator 45 06/18/17 16:00 100.0 106 26 135/87 100 Mechanical Ventilator 45 06/18/17 16:00 45 06/18/17 15:22 107 22 45 06/18/17 15:00 109 24 141/93 100 Mechanical Ventilator 45 06/18/17 14:00 101 19 135/91 100 Mechanical Ventilator 45 06/18/17 13:05 107 21 45 06/18/17 13:00 108 23 133/84 100 Mechanical Ventilator 45 06/18/17 12:00 109 06/18/17 12:00 110 29 158/92 100 Mechanical Ventilator 45 06/18/17 12:00 45 06/18/17 11:09 107 30 45 06/18/17 11:00 109 28 136/92 100 Mechanical Ventilator 45 06/18/17 10:00 109 29 153/96 100 Mechanical Ventilator 45 06/18/17 09:00 111 29 151/89 100 Mechanical Ventilator 45 06/18/17 08:53 107 29 45 06/18/17 08:00 45 06/18/17 08:00 103 06/18/17 08:00 99.9 100 25 153/100 100 Mechanical Ventilator 45 06/18/17 07:28 103 34 45 06/18/17 07:00 102 23 176/97 100 Mechanical Ventilator 45 06/18/17 06:00 155 23 173/98 100 Mechanical Ventilator 45 06/18/17 05:23 96 26 45 06/18/17 05:00 93 23 155/60 100 Mechanical Ventilator 45 06/18/17 04:00 45 06/18/17 04:00 99.9 92 23 151/88 100 Mechanical Ventilator 45 06/18/17 04:00 96 06/18/17 03:14 92 23 45 06/18/17 03:00 94 23 134/77 100 Mechanical Ventilator 45 06/18/17 02:00 98 25 129/76 100 Mechanical Ventilator 45 06/18/17 01:49 103 30 45 06/18/17 01:41 101.0 06/18/17 01:00 102.2 110 31 145/87 100 Mechanical Ventilator 45 06/18/17 00:00 111 06/18/17 00:00 108 31 155/95 100 Mechanical Ventilator 45 06/17/17 23:53 108 37 45 06/17/17 23:00 109 31 152/95 99 Mechanical Ventilator 45 06/17/17 22:00 109 32 143/88 99 Mechanical Ventilator 45 06/17/17 21:00 109 32 136/84 98 Mechanical Ventilator 45 06/17/17 20:49 110 33 45 06/17/17 20:16 110 32 45 06/17/17 20:00 99.2 111 30 151/81 97 Mechanical Ventilator 45 06/17/17 20:00 111 06/17/17 20:00 45 06/17/17 19:00 109 32 157/94 95 Mechanical Ventilator 45 06/17/17 18:00 108 30 144/84 94 Mechanical Ventilator 45 Intake and Output 06/17/17 06/18/17 19:00 07:00 Intake Total 2327.5 ml 1397.5 ml Output Total 715 ml 1190 ml Balance 1612.5 ml 207.5 ml Intake IV Total 2237.5 ml 1337.5 ml Other 90 ml 60 ml Output Urine Total 715 ml 1190 ml Laboratory Tests 06/18/17 04:50: White Blood Count 9.7, Red Blood Count 3.38L, Hemoglobin 11.2L, Hematocrit 30.7L , Mean Corpuscular Volume 91, Mean Corpuscular Hemoglobin 33.2H, Mean Corpuscular Hemoglobin Concent 36.5H, Red Cell Distribution Width 10.5L, Platelet Count 122L, Mean Platelet Volume 6.9, Neutrophils (%) (Auto) , Lymphocytes (%) (Auto) , Monocytes (%) (Auto) , Eosinophils (%) (Auto) , Basophils (%) (Auto) , Sodium Level 149H, Potassium Level 2.4*L, Chloride Level 118H, Carbon Dioxide Level 18L, Anion Gap 13, Blood Urea Nitrogen 71H, Creatinine 3.7H, Estimat Glomerular Filtration Rate 23.5, Glucose Level 46L, Calcium Level 7.5L, Total Bilirubin 0.4, Aspartate Amino Transf (AST/SGOT) 439H , Alanine Aminotransferase (ALT/SGPT) 156H, Alkaline Phosphatase 66, Total Protein 5.3L, Albumin 1.9L, Globulin 3.4, Albumin/Globulin Ratio 0.6L, Triglycerides Level 68, Cholesterol Level 82, LDL Cholesterol 35, HDL Cholesterol 36L, Cholesterol/HDL Ratio 2.3L, Amylase Level 227H, Lipase 1021H, Vancomycin Level Trough 24.7H 06/18/17 10:30: Arterial Blood pH 7.482H, Arterial Blood Partial Pressure CO2 28.2L, Arterial Blood Partial Pressure O2 124.7H, Arterial Blood HCO3 20.6L, Arterial Blood Oxygen Saturation 98.0, Arterial Blood Base Excess -1.8, Juanito Test Positive, Ammonia 33H 06/18/17 14:20: Sodium Level 153H, Potassium Level 3.1L, Chloride Level 120H, Carbon Dioxide Level 21, Anion Gap 12, Blood Urea Nitrogen 71H, Creatinine 3.7H, Estimat Glomerular Filtration Rate 23.5, Glucose Level 108H, Calcium Level 6.8L Height (Feet): 5 Height (Inches): 7.00 Weight (Pounds): 112 General Appearance: no apparent distress EENT: other - orally intubated Neck: non-tender Cardiovascular: regular rhythm Respiratory/Chest: decreased breath sounds Abdomen: soft Genitourinary/Rectal: other - carpenter, adequate urine output Extremities: non-tender, trace edema Neurologic: unresponsive Hannah Johnson N.P. Jun 18, 2017 17:55
--- NOTE | 2017-06-18 21:48 | Diagnostic Imaging Report ---
Indication: Dyspnea Comparison: 06/17/2017 A single view chest radiograph was obtained. Findings: Patchy infiltrates versus pulmonary edema appears slightly improved since the last examination. Some nodularity of lung disease noted especially on the right. Follow-up is recommended. Nasogastric tube and endotracheal tube appear stable. Heart size is stable. IMPRESSION: Slightly improved lung disease compared to the last day
[2017-06-19] VITALS (24 sets, daily range): BP systolic 130–173; BP diastolic 66–92
--- NOTE | 2017-06-19 00:01 | Cardiology Report ---
APPROVED REPORT EKG Measurement Heart [id number] Sinus tachycardia Nonspecific T wave abnormality Abnormal ECG
[2017-06-19] MEDS: Piperacillin/Tazobactam 3.375 GM in D5W 110 ML IVPB SCH ×3 (00:33→16:59)
[2017-06-19] MEDS: NovoLOG Insulin Flexpen SUBQ SCH ×6 (00:38→21:24)
[2017-06-19] MEDS: LORazepam Inj 2mg/ml 1ml IV PRN (03:16)
[2017-06-19] MEDS: D5 1/2NS w/KCl 20mEq 1,000 ML IV SCH ×2 (05:28→14:30)
[2017-06-19 06:51] LABS: HEMOGLOBIN 10.5 G/DL (14.2-18.0); MEAN CORPUSCULAR VOLUME 93 FL (80-99); PLATELET COUNT 119 K/UL (150-450); RED BLOOD COUNT 3.22 M/UL (4.70-6.10); RED CELL DISTRIBUTION WIDTH 10.8 % (11.6-14.8); WHITE BLOOD COUNT 10.3 K/UL (4.8-10.8)
--- NOTE | 2017-06-19 07:25 | General Progress Note ---
Assessment/Plan Problem List: (1) DKA (diabetic ketoacidosis) ICD Codes: E13.10 - Other specified diabetes mellitus with ketoacidosis without coma SNOMED: 69564504, 326475040 Qualifiers: Qualified Codes: E10.11 - Type 1 diabetes mellitus with ketoacidosis with coma (2) Metabolic acidosis ICD Codes: E87.2 - Acidosis SNOMED: 65665997 (3) Cardiopulmonary arrest ICD Codes: I46.9 - Cardiac arrest, cause unspecified SNOMED: 142320260 Assessment/Plan continue Levemir 9 units bid continue Novolog isliding scale Subjective ROS Limited/Unobtainable: Yes Allergies: Coded Allergies: No Known Allergies (Unverified , 06/15/17) Subjective intubated in icu Objective Last 24 Hour Vital Signs Date Time Temp Pulse Resp B/P (MAP) Pulse Ox O2 Delivery O2 Flow Rate FiO2 06/19/17 06:00 94 27 171/92 100 Mechanical Ventilator 45 06/19/17 05:20 96 25 45 06/19/17 05:00 95 21 162/82 100 Mechanical Ventilator 45 06/19/17 04:00 99.0 97 24 154/77 99 Mechanical Ventilator 45 06/19/17 04:00 97 06/19/17 04:00 45 06/19/17 03:30 98 27 45 06/19/17 03:00 100 24 130/77 100 Mechanical Ventilator 45 06/19/17 02:00 94 24 166/90 100 Mechanical Ventilator 45 06/19/17 01:30 95 29 45 06/19/17 01:00 99 25 143/83 100 Mechanical Ventilator 45 06/19/17 00:00 45 06/19/17 00:00 101 06/19/17 00:00 98.9 101 28 143/90 100 Mechanical Ventilator 45 06/18/17 23:30 101 29 45 06/18/17 23:00 105 28 146/86 99 Mechanical Ventilator 45 06/18/17 22:00 106 32 163/93 100 Mechanical Ventilator 45 06/18/17 21:00 104 27 151/89 100 Mechanical Ventilator 45 06/18/17 20:41 102 30 45 06/18/17 20:00 99.2 99 27 187/94 95 Mechanical Ventilator 45 06/18/17 20:00 45 06/18/17 20:00 99 06/18/17 19:30 92 31 45 06/18/17 19:00 102 26 144/91 95 Mechanical Ventilator 45 06/18/17 18:00 101 19 154/101 100 Mechanical Ventilator 45 06/18/17 17:08 104 29 45 06/18/17 17:00 107 25 130/82 100 Mechanical Ventilator 45 06/18/17 16:00 100.0 106 26 135/87 100 Mechanical Ventilator 45 06/18/17 16:00 109 06/18/17 16:00 45 06/18/17 15:22 107 22 45 06/18/17 15:00 109 24 141/93 100 Mechanical Ventilator 45 06/18/17 14:00 101 19 135/91 100 Mechanical Ventilator 45 06/18/17 13:05 107 21 45 06/18/17 13:00 108 23 133/84 100 Mechanical Ventilator 45 06/18/17 12:00 109 06/18/17 12:00 110 29 158/92 100 Mechanical Ventilator 45 06/18/17 12:00 45 06/18/17 11:09 107 30 45 06/18/17 11:00 109 28 136/92 100 Mechanical Ventilator 45 06/18/17 10:00 109 29 153/96 100 Mechanical Ventilator 45 06/18/17 09:00 111 29 151/89 100 Mechanical Ventilator 45 06/18/17 08:53 107 29 45 06/18/17 08:00 45 06/18/17 08:00 103 06/18/17 08:00 99.9 100 25 153/100 100 Mechanical Ventilator 45 06/18/17 07:28 103 34 45 Intake and Output 06/18/17 06/19/17 19:00 07:00 Intake Total 2153.75 ml 1127.5 ml Output Total 1100 ml 890 ml Balance 1053.75 ml 237.5 ml Intake IV Total 2153.75 ml 1127.5 ml Output Urine Total 1100 ml 890 ml # Bowel Movements 1 Laboratory Tests 06/18/17 10:30: Arterial Blood pH 7.482H, Arterial Blood Partial Pressure CO2 28.2L, Arterial Blood Partial Pressure O2 124.7H, Arterial Blood HCO3 20.6L, Arterial Blood Oxygen Saturation 98.0, Arterial Blood Base Excess -1.8, Juanito Test Positive, Ammonia 33H 06/18/17 14:20: Sodium Level 153H, Potassium Level 3.1L, Chloride Level 120H, Carbon Dioxide Level 21, Anion Gap 12, Blood Urea Nitrogen 71H, Creatinine 3.7H, Estimat Glomerular Filtration Rate 23.5, Glucose Level 108H, Calcium Level 6.8L 06/19/17 05:00: Sodium Level [Pending], Potassium Level [Pending], Chloride Level [Pending], Carbon Dioxide Level [Pending], Blood Urea Nitrogen [Pending], Creatinine [ Pending], Estimat Glomerular Filtration Rate [Pending], Glucose Level [Pending] , Calcium Level [Pending], White Blood Count 10.3, Red Blood Count 3.22L, Hemoglobin 10.5L, Hematocrit 30.0L, Mean Corpuscular Volume 93, Mean Corpuscular Hemoglobin 32.5H, Mean Corpuscular Hemoglobin Concent 35.0, Red Cell Distribution Width 10.8L, Platelet Count 119L, Mean Platelet Volume 7.4, Neutrophils (%) (Auto) , Lymphocytes (%) (Auto) , Monocytes (%) (Auto) , Eosinophils (%) (Auto) , Basophils (%) (Auto) , Neutrophils % (Manual) [Pending] , Lymphocytes % (Manual) [Pending], Platelet Estimate [Pending], Platelet Morphology [Pending], Reticulocyte Count [Pending], Prothrombin Time 10.1, Prothromb Time International Ratio 1.0, Activated Partial Thromboplast Time 32, Stool Occult Blood [Pending], Iron Level [Pending], Unsaturated Iron Binding [ Pending], Ferritin [Pending], Total Bilirubin [Pending], Aspartate Amino Transf (AST/SGOT) [Pending], Alanine Aminotransferase (ALT/SGPT) [Pending], Alkaline Phosphatase [Pending], Total Protein [Pending], Albumin [Pending], Globulin [ Pending], Lipase [Pending], Vitamin B12 Level [Pending], Folate [Pending], Thyroid Stimulating Hormone (TSH) [Pending], Free Thyroxine [Pending] Height (Feet): 5 Height (Inches): 7.00 Weight (Pounds): 112 General Appearance: moderate distress EENT: pale conjunctivae Neck: normal alignment Cardiovascular: normal rate Respiratory/Chest: decreased breath sounds Pelvis: normal external exam Objective Current Medications Medications (Trade) Dose Ordered Sig/Conrado Route PRN Reason Start Time Stop Time Status Last Admin Dose Admin Acetaminophen (Tylenol) 650 mg Q4H PRN ORAL Mild Pain/Temp > 100.5 06/16/17 17:45 07/16/17 13:44 06/18/17 00:42 Atropine Sulfate (Atropine 1mg/ml Inj) 0.5 mg EVERY HOUR PRN IVP HR<35 BPM 06/16/17 16:15 07/16/17 16:14 Clonidine HCl (Catapres) 0.1 mg Q2H PRN ORAL SBP Greater than 170 06/18/17 12:30 07/18/17 12:29 Dextrose (Dextrose 50%) STAT PRN IV Hypoglycemia 06/17/17 08:15 07/17/17 08:14 06/18/17 05:25 Dextrose/ Electrolytes 1,000 ml @ 100 mls/hr Q10H IV 06/18/17 09:00 07/18/17 08:59 06/19/17 05:28 Insulin Aspart (NovoLOG) EVERY 4 HOURS SUBQ 06/17/17 09:00 07/17/17 08:59 06/19/17 05:32 Insulin Detemir (Levemir) 9 units Q12HR SUBQ 06/18/17 21:00 07/18/17 20:59 06/18/17 21:00 Lorazepam (Ativan 2mg/ml 1ml) 1 mg Q4H PRN IV For Anxiety 06/16/17 18:39 06/23/17 18:38 06/19/17 03:16 Morphine Sulfate (Morphine Sulfate) 2 mg Q4HR PRN IVP Moderate Pain (Pain Scale 4-6) 06/16/17 17:00 06/23/17 00:59 Ondansetron HCl (Zofran) 4 mg Q6H PRN IVP Nausea & Vomiting 06/16/17 19:00 07/16/17 00:59 Pantoprazole (Protonix) 40 mg ACBREAKFAST ORAL 06/19/17 06:30 07/17/17 08:59 06/19/17 06:11 Piperacillin Sod/ Tazobactam Sod 3.375 gm/Dextrose 110 ml @ 27.5 mls/hr Q8H IVPB 06/16/17 17:00 06/23/17 16:59 06/19/17 00:33 Thiamine HCl 100 mg/Folic Acid 1 mg/Multivitamins 10 ml/Sodium Chloride 1,011.2 ml @ 125 mls/ hr DAILY IV 06/17/17 09:30 07/17/17 09:29 06/18/17 10:57 Item Value Date Time Bedside Blood Glucose 141 mg/dl H 06/19/17 0532 Bedside Blood Glucose 255 mg/dl H 06/19/17 0100 Bedside Blood Glucose 221 mg/dl H 06/18/17 2101 Bedside Blood Glucose 173 mg/dl H 06/18/17 1655 Bedside Blood Glucose 78 mg/dl 06/18/17 1207 JADIEL MARCANO Jun 19, 2017 07:25
[2017-06-19 07:45] LABS: ALANINE AMINOTRANSFERASE 468 U/L (12-78); ALBUMIN 1.8 G/DL (3.4-5.0); ALBUMIN/GLOBULIN RATIO 0.5 (1.0-2.7); ALKALINE PHOSPHATASE 135 U/L (46-116); ANION GAP 13 mmol/L (5-15); ASPARTATE AMINO TRANSFERASE 1124 U/L (15-37); BILIRUBIN,TOTAL 0.4 MG/DL (0.2-1.0); BLOOD UREA NITROGEN 64 mg/dL (7-18); CALCIUM 7.5 MG/DL (8.5-10.1); CARBON DIOXIDE 19 MMOL/L (21-32); CHLORIDE 118 MMOL/L (98-107); CREATININE 3.7 MG/DL (0.55-1.30); FERRITIN 6327 NG/ML (8-388); POTASSIUM 2.9 MMOL/L (3.5-5.1); SODIUM 150 MMOL/L (136-145)
[2017-06-19] MEDS: Levemir Flexpen SUBQ SCH ×2 (08:06→21:22)
[2017-06-19 08:29] LABS: % IRON SATURATION 65 % (15-50); IRON 72 ug/dL (50-175); TOTAL IRON BINDING CAPACITY 111 ug/dL (250-450)
[2017-06-19] MEDS ORDERED: Vancomycin 1gm in D5W 275ml IVPB ONE (09:00)
[2017-06-19] MEDS: FOLIC ACID IV SCH (09:13)
[2017-06-19] MEDS: [UNRECOGNIZED DRUG - OTHER] IV SCH (09:13)
[2017-06-19] MEDS: MULTIVITAMIN IV SCH (09:13)
[2017-06-19] MEDS: THIAMINE HCL IV SCH (09:13)
--- NOTE | 2017-06-19 10:08 | Pulmonology Progress Note ---
Assessment/Plan Assessment/Plan IMPRESSION: 1. Possible pneumonia. 2. Cannabis usage. 3. Diabetic ketoacidosis. 4. Troponin leak. 5. Tachycardia. 6. AMS DISCUSSION: Agree with present management and care. The patient is at this time on vancomycin, insulin, thiamine, normal saline, and Zosyn, which I will all continue. I will begin weaning once the patient is more stable. We will adjust vent settings to AC of 20, tidal volume 550, FiO2 80%. We will follow carefully. Ammonia is normal Will order head CT Needs neurology input Continue vent/ AC mode Subjective Interval Events: Remains completely unresponsive Constitutional: Reports: no symptoms HEENT: Repors: no symptoms Respiratory: Reports: no symptoms Cardiovascular: Reports: no symptoms Gastrointestinal/Abdominal: Reports: no symptoms Genitourinary: Reports: no symptoms Allergies: Coded Allergies: No Known Allergies (Unverified , 06/15/17) Objective Last 24 Hour Vital Signs Date Time Temp Pulse Resp B/P (MAP) Pulse Ox O2 Delivery O2 Flow Rate FiO2 06/19/17 09:27 95 29 45 06/19/17 09:00 93 20 173/80 100 Mechanical Ventilator 45 06/19/17 08:00 98.7 96 31 173/87 100 Mechanical Ventilator 45 06/19/17 08:00 96 06/19/17 08:00 45 06/19/17 07:29 96 28 45 06/19/17 07:00 92 29 171/89 100 Mechanical Ventilator 45 06/19/17 06:00 94 27 171/92 100 Mechanical Ventilator 45 06/19/17 05:20 96 25 45 06/19/17 05:00 95 21 162/82 100 Mechanical Ventilator 45 06/19/17 04:00 99.0 97 24 154/77 99 Mechanical Ventilator 45 06/19/17 04:00 97 06/19/17 04:00 45 06/19/17 03:30 98 27 45 06/19/17 03:00 100 24 130/77 100 Mechanical Ventilator 45 06/19/17 02:00 94 24 166/90 100 Mechanical Ventilator 45 06/19/17 01:30 95 29 45 06/19/17 01:00 99 25 143/83 100 Mechanical Ventilator 45 06/19/17 00:00 45 06/19/17 00:00 101 06/19/17 00:00 98.9 101 28 143/90 100 Mechanical Ventilator 45 06/18/17 23:30 101 29 45 06/18/17 23:00 105 28 146/86 99 Mechanical Ventilator 45 06/18/17 22:00 106 32 163/93 100 Mechanical Ventilator 45 06/18/17 21:00 104 27 151/89 100 Mechanical Ventilator 45 06/18/17 20:41 102 30 45 06/18/17 20:00 99.2 99 27 187/94 95 Mechanical Ventilator 45 06/18/17 20:00 45 06/18/17 20:00 99 06/18/17 19:30 92 31 45 06/18/17 19:00 102 26 144/91 95 Mechanical Ventilator 45 06/18/17 18:00 101 19 154/101 100 Mechanical Ventilator 45 06/18/17 17:08 104 29 45 06/18/17 17:00 107 25 130/82 100 Mechanical Ventilator 45 06/18/17 16:00 100.0 106 26 135/87 100 Mechanical Ventilator 45 06/18/17 16:00 109 06/18/17 16:00 45 06/18/17 15:22 107 22 45 06/18/17 15:00 109 24 141/93 100 Mechanical Ventilator 45 06/18/17 14:00 101 19 135/91 100 Mechanical Ventilator 45 06/18/17 13:05 107 21 45 06/18/17 13:00 108 23 133/84 100 Mechanical Ventilator 45 06/18/17 12:00 109 06/18/17 12:00 110 29 158/92 100 Mechanical Ventilator 45 06/18/17 12:00 45 06/18/17 11:09 107 30 45 06/18/17 11:00 109 28 136/92 100 Mechanical Ventilator 45 Intake and Output 06/18/17 06/19/17 19:00 07:00 Intake Total 2153.75 ml 1127.5 ml Output Total 1100 ml 1090 ml Balance 1053.75 ml 37.5 ml Intake IV Total 2153.75 ml 1127.5 ml Output Urine Total 1100 ml 1090 ml # Bowel Movements 1 General Appearance: no acute distress HEENT: normocephalic Respiratory/Chest: chest wall non-tender, lungs clear Cardiovascular: normal peripheral pulses, normal rate Abdomen: normal bowel sounds, soft, non tender Extremities: no cyanosis Laboratory Tests 06/18/17 10:30: Arterial Blood pH 7.482H, Arterial Blood Partial Pressure CO2 28.2L, Arterial Blood Partial Pressure O2 124.7H, Arterial Blood HCO3 20.6L, Arterial Blood Oxygen Saturation 98.0, Arterial Blood Base Excess -1.8, Juanito Test Positive, Ammonia 33H 06/18/17 14:20: Sodium Level 153H, Potassium Level 3.1L, Chloride Level 120H, Carbon Dioxide Level 21, Anion Gap 12, Blood Urea Nitrogen 71H, Creatinine 3.7H, Estimat Glomerular Filtration Rate 23.5, Glucose Level 108H, Calcium Level 6.8L 06/19/17 05:00: Sodium Level 150H, Potassium Level 2.9L, Chloride Level 118H, Carbon Dioxide Level 19L, Anion Gap 13, Blood Urea Nitrogen 64H, Creatinine 3.7H, Estimat Glomerular Filtration Rate 23.5, Glucose Level 136H, Calcium Level 7.5L, White Blood Count 10.3, Red Blood Count 3.22L, Hemoglobin 10.5L, Hematocrit 30.0L, Mean Corpuscular Volume 93, Mean Corpuscular Hemoglobin 32.5H, Mean Corpuscular Hemoglobin Concent 35.0, Red Cell Distribution Width 10.8L, Platelet Count 119L , Mean Platelet Volume 7.4, Neutrophils (%) (Auto) , Lymphocytes (%) (Auto) , Monocytes (%) (Auto) , Eosinophils (%) (Auto) , Basophils (%) (Auto) , Differential Total Cells Counted 100, Neutrophils % (Manual) 87H, Lymphocytes % (Manual) 7L, Monocytes % (Manual) 6, Eosinophils % (Manual) 0, Basophils % ( Manual) 0, Band Neutrophils 0, Platelet Estimate DecreasedL, Platelet Morphology Normal, Hypochromasia 1+, Anisocytosis 1+, Reticulocyte Count [ Pending], Prothrombin Time 10.1, Prothromb Time International Ratio 1.0, Activated Partial Thromboplast Time 32, Stool Occult Blood [Pending], Iron Level 72, Total Iron Binding Capacity 111L, Percent Iron Saturation 65H, Unsaturated Iron Binding 39L, Ferritin 6327H, Total Bilirubin 0.4, Aspartate Amino Transf (AST/SGOT) 1124H, Alanine Aminotransferase (ALT/SGPT) 468H, Alkaline Phosphatase 135H, Total Protein 5.3L, Albumin 1.8L, Globulin 3.5, Albumin/Globulin Ratio 0.5L, Lipase 3721H, Vitamin B12 Level 3421H, Folate 101.4H, Thyroid Stimulating Hormone (TSH) 2.665, Free Thyroxine 0.77 Current Medications Medications (Trade) Dose Ordered Sig/Conrado Route PRN Reason Start Time Stop Time Status Last Admin Dose Admin Acetaminophen (Tylenol) 650 mg Q4H PRN ORAL Mild Pain/Temp > 100.5 06/16/17 17:45 07/16/17 13:44 06/18/17 00:42 Atropine Sulfate (Atropine 1mg/ml Inj) 0.5 mg EVERY HOUR PRN IVP HR<35 BPM 06/16/17 16:15 07/16/17 16:14 Clonidine HCl (Catapres) 0.1 mg Q2H PRN ORAL SBP Greater than 170 06/18/17 12:30 07/18/17 12:29 Dextrose (Dextrose 50%) STAT PRN IV Hypoglycemia 06/17/17 08:15 07/17/17 08:14 06/18/17 05:25 Dextrose/ Electrolytes 1,000 ml @ 100 mls/hr Q10H IV 06/18/17 09:00 07/18/17 08:59 06/19/17 05:28 Insulin Aspart (NovoLOG) EVERY 4 HOURS SUBQ 06/17/17 09:00 07/17/17 08:59 06/19/17 08:05 Insulin Detemir (Levemir) 9 units Q12HR SUBQ 06/18/17 21:00 07/18/17 20:59 06/19/17 08:06 Lorazepam (Ativan 2mg/ml 1ml) 1 mg Q4H PRN IV For Anxiety 06/16/17 18:39 06/23/17 18:38 06/19/17 03:16 Morphine Sulfate (Morphine Sulfate) 2 mg Q4HR PRN IVP Moderate Pain (Pain Scale 4-6) 06/16/17 17:00 06/23/17 00:59 Ondansetron HCl (Zofran) 4 mg Q6H PRN IVP Nausea & Vomiting 06/16/17 19:00 07/16/17 00:59 Pantoprazole (Protonix) 40 mg ACBREAKFAST ORAL 06/19/17 06:30 07/17/17 08:59 06/19/17 06:11 Piperacillin Sod/ Tazobactam Sod 3.375 gm/Dextrose 110 ml @ 27.5 mls/hr Q8H IVPB 06/16/17 17:00 06/23/17 16:59 06/19/17 07:52 Thiamine HCl 100 mg/Folic Acid 1 mg/Multivitamins 10 ml/Sodium Chloride 1,011.2 ml @ 125 mls/ hr DAILY IV 06/17/17 09:30 07/17/17 09:29 06/19/17 09:13 Paulo Floyd MD Jun 19, 2017 10:08
--- NOTE | 2017-06-19 12:50 | Cardiology Report ---
APPROVED REPORT EXAM: Two-dimensional and M-mode echocardiogram with Doppler and color Doppler. INDICATION Congestive Heart Failure M-Mode DIMENSIONS IVSd1.1 (0.7-1.1cm)Left Atrium (MM)2.6 (1.6-4.0cm) LVDd3.4 (3.5-5.6cm)Aortic Root2.5 (2.0-3.7cm) PWd0.9 (0.7-1.1cm)Aortic Cusp Exc.2.0 (1.5-2.0cm) LVDs2.9 (2.5-4.0cm) PWs1.1 cm Technically difficult study due to poor acoustical windows. PT on vent. Normal left ventricular chamber size, systolic function and wall motion. Left ventricular ejection fraction estimated to be 60-65%. No evidence of left ventricular hypertrophy. No evidence of pericardial or pleural effusion. All other cardiac chamber sizes are within normal limits. Focal aortic valve sclerosis with adequate cusp excursion. Thickened mitral valve leaflets with normal excursion. Mild mitral annulus and aortic root calcification. Pulmonic valve not well visualized. Normal tricuspid valve structure. IVC is normal in size and collapsible with respiration. A color flow and spectral Doppler study was performed and revealed: No aortic regurgitation. No mitral regurgitation. Mitral diastolic velocities suggest reduced left ventricular relaxation c/w diastolic dysfunction grade 1. Trace tricuspid regurgitation. Tricuspid systolic velocities suggests peak right ventricular systolic pressure of 30mmHg
--- NOTE | 2017-06-19 13:08 | Diagnostic Imaging Report ---
Indication: Altered mental status Technique: Contiguous 5 mm thick transaxial imaging of the head obtained in a Siemens Sensation [address] scanner. Soft tissue and bone windows generated. Automatic Exposure Control was utilized. Total Dose length Product (DLP): 1407.[address] Dose Index Volume (CTDIvol): 70.38 mGy Comparison: none Findings: There is loss of osborne-white differentiation diffusely within the brain. Findings suggestive of cerebral edema most likely from a recent anoxic injury. Clinical correlation obviously needed. Follow-up suggested. There is no midline shift or acute intracranial blood identified. Extensive opacification of the paranasal sinuses noted. IMPRESSION: Suspect diffuse cerebral anoxia and edema. Please correlate clinically. Findings conveyed to the ICU nurse 1:00 PM, 06/19/[address] scanner at [facility] is accredited by the [employer] and the scans are performed using dose optimization techniques as appropriate to a performed exam including Automatic Exposure control.
--- NOTE | 2017-06-19 14:47 | Neurology Progress Note ---
Interim History Interim History ROS Limited/Unobtainable: Yes Objective Physical Exam Last Vital Signs Date Time Temp Pulse Resp B/P (MAP) Pulse Ox O2 Delivery O2 Flow Rate FiO2 06/19/17 14:00 95 27 161/82 100 Mechanical Ventilator 45 06/19/17 12:00 98.3 Laboratory Tests Test 06/19/17 05:00 White Blood Count 10.3 K/UL (4.8-10.8) Red Blood Count 3.22 M/UL (4.70-6.10) L Hemoglobin 10.5 G/DL (14.2-18.0) L Hematocrit 30.0 % (42.0-52.0) L Mean Corpuscular Volume 93 FL (80-99) Mean Corpuscular Hemoglobin 32.5 PG (27.0-31.0) H Mean Corpuscular Hemoglobin Concent 35.0 G/DL (32.0-36.0) Red Cell Distribution Width 10.8 % (11.6-14.8) L Platelet Count 119 K/UL (150-450) L Mean Platelet Volume 7.4 FL (6.5-10.1) Neutrophils (%) (Auto) % (45.0-75.0) Lymphocytes (%) (Auto) % (20.0-45.0) Monocytes (%) (Auto) % (1.0-10.0) Eosinophils (%) (Auto) % (0.0-3.0) Basophils (%) (Auto) % (0.0-2.0) Differential Total Cells Counted 100 Neutrophils % (Manual) 87 % (45-75) H Lymphocytes % (Manual) 7 % (20-45) L Monocytes % (Manual) 6 % (1-10) Eosinophils % (Manual) 0 % (0-3) Basophils % (Manual) 0 % (0-2) Band Neutrophils 0 % (0-8) Platelet Estimate Decreased L Platelet Morphology Normal Hypochromasia 1+ Anisocytosis 1+ Reticulocyte Count 0.4 % (0.0-2.0) Prothrombin Time 10.1 SEC (9.30-11.50) Prothromb Time International Ratio 1.0 (0.9-1.1) Activated Partial Thromboplast Time 32 SEC (23-33) Stool Occult Blood Positive (NEGATIVE) Sodium Level 150 MMOL/L (136-145) H Potassium Level 2.9 MMOL/L (3.5-5.1) L Chloride Level 118 MMOL/L (98-107) H Carbon Dioxide Level 19 MMOL/L (21-32) L Anion Gap 13 mmol/L (5-15) Blood Urea Nitrogen 64 mg/dL (7-18) H Creatinine 3.7 MG/DL (0.55-1.30) H Estimat Glomerular Filtration Rate 23.5 mL/min (>60) Glucose Level 136 MG/DL (74-106) H Calcium Level 7.5 MG/DL (8.5-10.1) L Iron Level 72 ug/dL (50-175) Total Iron Binding Capacity 111 ug/dL (250-450) L Percent Iron Saturation 65 % (15-50) H Unsaturated Iron Binding 39 ug/dL (112-346) L Ferritin 6327 NG/ML (8-388) H Total Bilirubin 0.4 MG/DL (0.2-1.0) Aspartate Amino Transf (AST/SGOT) 1124 U/L (15-37) H Alanine Aminotransferase (ALT/SGPT) 468 U/L (12-78) H Alkaline Phosphatase 135 U/L (46-116) H Total Protein 5.3 G/DL (6.4-8.2) L Albumin 1.8 G/DL (3.4-5.0) L Globulin 3.5 g/dL Albumin/Globulin Ratio 0.5 (1.0-2.7) L Lipase 3721 U/L (73-393) H Vitamin B12 Level 3421 PG/ML (193-986) H Folate 101.4 NG/ML (8.6-58.9) H Thyroid Stimulating Hormone (TSH) 2.665 uiU/mL (0.358-3.740) Free Thyroxine 0.77 NG/DL (0.76-1.46) Impression/Recommendations Problems: (1) Anoxic encephalopathy syndrome (2) Anoxic cerebral edema (3) DKA (diabetic ketoacidosis) (4) Cardiopulmonary arrest (5) Respiratory distress (6) Acidosis Status: deteriorating Recommendations #[id number] BLAINE VILLEGAS Jun 19, 2017 14:47
--- NOTE | 2017-06-19 14:57 | GI Progress Note ---
Assessment/Plan Problems: (1) Shock liver ICD Codes: K72.00 - Acute and subacute hepatic failure without coma SNOMED: 649778075 (2) Anoxic cerebral edema ICD Codes: G93.6 - Cerebral edema; R09.02 - Hypoxemia SNOMED: 4877753, 819060149 (3) Transaminitis ICD Codes: R74.0 - Nonspecific elevation of levels of transaminase and lactic acid dehydrogenase [LDH] SNOMED: 619985378, 194774523 (4) Alcohol withdrawal ICD Codes: F10.239 - Alcohol dependence with withdrawal, unspecified SNOMED: 075562662 (5) Pancreatitis ICD Codes: K85.90 - Acute pancreatitis without necrosis or infection, unspecified SNOMED: 70648722 Status: not improved Status Narrative Discussed with Dr. Rico. Assessment/Plan head CT reviewed >> Suspect diffuse cerebral anoxia and edema. utox positive marijuana macrocytic hyperchromic anemia OB stool positive defer GI procedures at this time, respiratory status not stable maintain NPO + IVFs at this time given DKA elevated B12/folate levels >> dc banana DM mgmt electrolyte correction rising LFTs >> shock liver follow lipase ppi BID monitor H&H, prn transfusions fu labs Subjective Subjective limited Objective Last 24 Hour Vital Signs Date Time Temp Pulse Resp B/P (MAP) Pulse Ox O2 Delivery O2 Flow Rate FiO2 06/19/17 14:00 95 27 161/82 100 Mechanical Ventilator 45 06/19/17 13:00 96 22 162/81 100 Mechanical Ventilator 45 06/19/17 13:00 96 25 45 06/19/17 12:00 88 06/19/17 12:00 98.3 94 30 159/77 100 Mechanical Ventilator 45 06/19/17 12:00 45 06/19/17 11:00 89 20 168/76 100 Mechanical Ventilator 45 06/19/17 10:58 95 22 45 06/19/17 10:00 93 27 161/79 100 Mechanical Ventilator 45 06/19/17 09:27 95 29 45 06/19/17 09:00 93 20 173/80 100 Mechanical Ventilator 45 06/19/17 08:00 98.7 96 31 173/87 100 Mechanical Ventilator 45 06/19/17 08:00 96 06/19/17 08:00 45 06/19/17 07:29 96 28 45 06/19/17 07:00 92 29 171/89 100 Mechanical Ventilator 45 06/19/17 06:00 94 27 171/92 100 Mechanical Ventilator 45 06/19/17 05:20 96 25 45 06/19/17 05:00 95 21 162/82 100 Mechanical Ventilator 45 06/19/17 04:00 99.0 97 24 154/77 99 Mechanical Ventilator 45 06/19/17 04:00 97 06/19/17 04:00 45 06/19/17 03:30 98 27 45 06/19/17 03:00 100 24 130/77 100 Mechanical Ventilator 45 06/19/17 02:00 94 24 166/90 100 Mechanical Ventilator 45 06/19/17 01:30 95 29 45 06/19/17 01:00 99 25 143/83 100 Mechanical Ventilator 45 06/19/17 00:00 45 06/19/17 00:00 101 06/19/17 00:00 98.9 101 28 143/90 100 Mechanical Ventilator 45 06/18/17 23:30 101 29 45 06/18/17 23:00 105 28 146/86 99 Mechanical Ventilator 45 06/18/17 22:00 106 32 163/93 100 Mechanical Ventilator 45 06/18/17 21:00 104 27 151/89 100 Mechanical Ventilator 45 06/18/17 20:41 102 30 45 06/18/17 20:00 99.2 99 27 187/94 95 Mechanical Ventilator 45 06/18/17 20:00 45 06/18/17 20:00 99 06/18/17 19:30 92 31 45 06/18/17 19:00 102 26 144/91 95 Mechanical Ventilator 45 06/18/17 18:00 101 19 154/101 100 Mechanical Ventilator 45 06/18/17 17:08 104 29 45 06/18/17 17:00 107 25 130/82 100 Mechanical Ventilator 45 06/18/17 16:00 100.0 106 26 135/87 100 Mechanical Ventilator 45 06/18/17 16:00 109 06/18/17 16:00 45 06/18/17 15:22 107 22 45 06/18/17 15:00 109 24 141/93 100 Mechanical Ventilator 45 Intake and Output 06/18/17 06/19/17 19:00 07:00 Intake Total 2153.75 ml 1227.5 ml Output Total 1100 ml 1090 ml Balance 1053.75 ml 137.5 ml Intake IV Total 2153.75 ml 1227.5 ml Output Urine Total 1100 ml 1090 ml # Bowel Movements 1 Laboratory Tests Test 06/19/17 05:00 White Blood Count 10.3 K/UL (4.8-10.8) Red Blood Count 3.22 M/UL (4.70-6.10) L Hemoglobin 10.5 G/DL (14.2-18.0) L Hematocrit 30.0 % (42.0-52.0) L Mean Corpuscular Volume 93 FL (80-99) Mean Corpuscular Hemoglobin 32.5 PG (27.0-31.0) H Mean Corpuscular Hemoglobin Concent 35.0 G/DL (32.0-36.0) Red Cell Distribution Width 10.8 % (11.6-14.8) L Platelet Count 119 K/UL (150-450) L Mean Platelet Volume 7.4 FL (6.5-10.1) Neutrophils (%) (Auto) % (45.0-75.0) Lymphocytes (%) (Auto) % (20.0-45.0) Monocytes (%) (Auto) % (1.0-10.0) Eosinophils (%) (Auto) % (0.0-3.0) Basophils (%) (Auto) % (0.0-2.0) Differential Total Cells Counted 100 Neutrophils % (Manual) 87 % (45-75) H Lymphocytes % (Manual) 7 % (20-45) L Monocytes % (Manual) 6 % (1-10) Eosinophils % (Manual) 0 % (0-3) Basophils % (Manual) 0 % (0-2) Band Neutrophils 0 % (0-8) Platelet Estimate Decreased L Platelet Morphology Normal Hypochromasia 1+ Anisocytosis 1+ Reticulocyte Count 0.4 % (0.0-2.0) Prothrombin Time 10.1 SEC (9.30-11.50) Prothromb Time International Ratio 1.0 (0.9-1.1) Activated Partial Thromboplast Time 32 SEC (23-33) Stool Occult Blood Positive (NEGATIVE) Sodium Level 150 MMOL/L (136-145) H Potassium Level 2.9 MMOL/L (3.5-5.1) L Chloride Level 118 MMOL/L (98-107) H Carbon Dioxide Level 19 MMOL/L (21-32) L Anion Gap 13 mmol/L (5-15) Blood Urea Nitrogen 64 mg/dL (7-18) H Creatinine 3.7 MG/DL (0.55-1.30) H Estimat Glomerular Filtration Rate 23.5 mL/min (>60) Glucose Level 136 MG/DL (74-106) H Calcium Level 7.5 MG/DL (8.5-10.1) L Iron Level 72 ug/dL (50-175) Total Iron Binding Capacity 111 ug/dL (250-450) L Percent Iron Saturation 65 % (15-50) H Unsaturated Iron Binding 39 ug/dL (112-346) L Ferritin 6327 NG/ML (8-388) H Total Bilirubin 0.4 MG/DL (0.2-1.0) Aspartate Amino Transf (AST/SGOT) 1124 U/L (15-37) H Alanine Aminotransferase (ALT/SGPT) 468 U/L (12-78) H Alkaline Phosphatase 135 U/L (46-116) H Total Protein 5.3 G/DL (6.4-8.2) L Albumin 1.8 G/DL (3.4-5.0) L Globulin 3.5 g/dL Albumin/Globulin Ratio 0.5 (1.0-2.7) L Lipase 3721 U/L (73-393) H Vitamin B12 Level 3421 PG/ML (193-986) H Folate 101.4 NG/ML (8.6-58.9) H Thyroid Stimulating Hormone (TSH) 2.665 uiU/mL (0.358-3.740) Free Thyroxine 0.77 NG/DL (0.76-1.46) Height (Feet): 5 Height (Inches): 7.00 Weight (Pounds): 112 General Appearance: no apparent distress, confused, thin Cardiovascular: normal rate Respiratory/Chest: other - intubated Abdominal Exam: normal bowel sounds, non tender, soft Extremities: non-tender Lashawn Mason N.P. Jun 19, 2017 14:57
--- NOTE | 2017-06-19 15:03 | Infectious Diseases Prog Note ---
Assessment/Plan Problems: (1) Pneumonia Assessment & Plan: with diffuse patchy infiltrates, suspect aspiration due to altered mental status , await sputum culture, continue zosyn empiric coverage for now . off vancomycin to avoid nephrotoxicity . repeat CXR for follow up showed some improvement (2) Sepsis Assessment & Plan: due to the above, await blood culture, continue zosyn empirically, stop vancomycin (3) Pancreatitis Assessment & Plan: suspect due to alchol abuse, monitor lipase, keep npo, GI follow up (4) DKA (diabetic ketoacidosis) Assessment & Plan: S/P insulin drip ,continue close monitor of blood glucose (5) Acidosis Assessment & Plan: due to the above , continue hydration (6) Alcohol withdrawal Assessment & Plan: on CIWA protocol , continue close monitor in ICU (7) Fever Assessment & Plan: suspect due to the above , continue tylenol empirically, monitor culture (8) Cardiopulmonary arrest Assessment & Plan: intubated on mechanical ventilation , monitor ABG, cardiology and pulmonary team are following (9) Anoxic cerebral edema Assessment & Plan: neurology is following Subjective ROS Limited/Unobtainable: Yes Allergies: Coded Allergies: No Known Allergies (Unverified , 06/15/17) Subjective he is still intubated on mechanical ventilation , comfortable, not agitated , open eyes spontaneously , dosen't respond to verbal commands , tachycardic , afebrile, no diarrhea or significant secretions . Objective Vital Signs Last 24 Hour Vital Signs Date Time Temp Pulse Resp B/P (MAP) Pulse Ox O2 Delivery O2 Flow Rate FiO2 06/19/17 14:00 95 27 161/82 100 Mechanical Ventilator 45 06/19/17 13:00 96 22 162/81 100 Mechanical Ventilator 45 06/19/17 13:00 96 25 45 06/19/17 12:00 88 06/19/17 12:00 98.3 94 30 159/77 100 Mechanical Ventilator 45 06/19/17 12:00 45 06/19/17 11:00 89 20 168/76 100 Mechanical Ventilator 45 06/19/17 10:58 95 22 45 06/19/17 10:00 93 27 161/79 100 Mechanical Ventilator 45 06/19/17 09:27 95 29 45 06/19/17 09:00 93 20 173/80 100 Mechanical Ventilator 45 06/19/17 08:00 98.7 96 31 173/87 100 Mechanical Ventilator 45 06/19/17 08:00 96 06/19/17 08:00 45 06/19/17 07:29 96 28 45 06/19/17 07:00 92 29 171/89 100 Mechanical Ventilator 45 06/19/17 06:00 94 27 171/92 100 Mechanical Ventilator 45 06/19/17 05:20 96 25 45 06/19/17 05:00 95 21 162/82 100 Mechanical Ventilator 45 06/19/17 04:00 99.0 97 24 154/77 99 Mechanical Ventilator 45 06/19/17 04:00 97 06/19/17 04:00 45 06/19/17 03:30 98 27 45 06/19/17 03:00 100 24 130/77 100 Mechanical Ventilator 45 06/19/17 02:00 94 24 166/90 100 Mechanical Ventilator 45 06/19/17 01:30 95 29 45 06/19/17 01:00 99 25 143/83 100 Mechanical Ventilator 45 06/19/17 00:00 45 06/19/17 00:00 101 06/19/17 00:00 98.9 101 28 143/90 100 Mechanical Ventilator 45 06/18/17 23:30 101 29 45 06/18/17 23:00 105 28 146/86 99 Mechanical Ventilator 45 06/18/17 22:00 106 32 163/93 100 Mechanical Ventilator 45 06/18/17 21:00 104 27 151/89 100 Mechanical Ventilator 45 06/18/17 20:41 102 30 45 06/18/17 20:00 99.2 99 27 187/94 95 Mechanical Ventilator 45 06/18/17 20:00 45 06/18/17 20:00 99 06/18/17 19:30 92 31 45 06/18/17 19:00 102 26 144/91 95 Mechanical Ventilator 45 06/18/17 18:00 101 19 154/101 100 Mechanical Ventilator 45 06/18/17 17:08 104 29 45 06/18/17 17:00 107 25 130/82 100 Mechanical Ventilator 45 06/18/17 16:00 100.0 106 26 135/87 100 Mechanical Ventilator 45 06/18/17 16:00 109 06/18/17 16:00 45 06/18/17 15:22 107 22 45 06/18/17 15:00 109 24 141/93 100 Mechanical Ventilator 45 Height (Feet): 5 Height (Inches): 7.00 Weight (Pounds): 112 General Appearance: WD/WN, no acute distress, cachetic HEENT: normocephalic, atraumatic, anicteric, PERRL, supple, no JVD Respiratory/Chest: chest wall non-tender, lungs clear, normal breath sounds, no respiratory distress, no accessory muscle use Cardiovascular: normal peripheral pulses, normal rate, regular rhythm, no gallop/murmur, no JVD Abdomen: normal bowel sounds, soft, non tender, no organomegaly, non distended , no mass, no scars Extremities: no cyanosis, no clubbing Skin: no rash, no lesions, no ulcers Neurologic/Psychiatric: alert, motor weakness, unresponsiveness, aphasia Lymphatic: no neck adenopathy, no groin adenopathy Laboratory Tests Test 06/19/17 05:00 White Blood Count 10.3 K/UL (4.8-10.8) Red Blood Count 3.22 M/UL (4.70-6.10) L Hemoglobin 10.5 G/DL (14.2-18.0) L Hematocrit 30.0 % (42.0-52.0) L Mean Corpuscular Volume 93 FL (80-99) Mean Corpuscular Hemoglobin 32.5 PG (27.0-31.0) H Mean Corpuscular Hemoglobin Concent 35.0 G/DL (32.0-36.0) Red Cell Distribution Width 10.8 % (11.6-14.8) L Platelet Count 119 K/UL (150-450) L Mean Platelet Volume 7.4 FL (6.5-10.1) Neutrophils (%) (Auto) % (45.0-75.0) Lymphocytes (%) (Auto) % (20.0-45.0) Monocytes (%) (Auto) % (1.0-10.0) Eosinophils (%) (Auto) % (0.0-3.0) Basophils (%) (Auto) % (0.0-2.0) Differential Total Cells Counted 100 Neutrophils % (Manual) 87 % (45-75) H Lymphocytes % (Manual) 7 % (20-45) L Monocytes % (Manual) 6 % (1-10) Eosinophils % (Manual) 0 % (0-3) Basophils % (Manual) 0 % (0-2) Band Neutrophils 0 % (0-8) Platelet Estimate Decreased L Platelet Morphology Normal Hypochromasia 1+ Anisocytosis 1+ Reticulocyte Count 0.4 % (0.0-2.0) Prothrombin Time 10.1 SEC (9.30-11.50) Prothromb Time International Ratio 1.0 (0.9-1.1) Activated Partial Thromboplast Time 32 SEC (23-33) Stool Occult Blood Positive (NEGATIVE) Sodium Level 150 MMOL/L (136-145) H Potassium Level 2.9 MMOL/L (3.5-5.1) L Chloride Level 118 MMOL/L (98-107) H Carbon Dioxide Level 19 MMOL/L (21-32) L Anion Gap 13 mmol/L (5-15) Blood Urea Nitrogen 64 mg/dL (7-18) H Creatinine 3.7 MG/DL (0.55-1.30) H Estimat Glomerular Filtration Rate 23.5 mL/min (>60) Glucose Level 136 MG/DL (74-106) H Calcium Level 7.5 MG/DL (8.5-10.1) L Iron Level 72 ug/dL (50-175) Total Iron Binding Capacity 111 ug/dL (250-450) L Percent Iron Saturation 65 % (15-50) H Unsaturated Iron Binding 39 ug/dL (112-346) L Ferritin 6327 NG/ML (8-388) H Total Bilirubin 0.4 MG/DL (0.2-1.0) Aspartate Amino Transf (AST/SGOT) 1124 U/L (15-37) H Alanine Aminotransferase (ALT/SGPT) 468 U/L (12-78) H Alkaline Phosphatase 135 U/L (46-116) H Total Protein 5.3 G/DL (6.4-8.2) L Albumin 1.8 G/DL (3.4-5.0) L Globulin 3.5 g/dL Albumin/Globulin Ratio 0.5 (1.0-2.7) L Lipase 3721 U/L (73-393) H Vitamin B12 Level 3421 PG/ML (193-986) H Folate 101.4 NG/ML (8.6-58.9) H Thyroid Stimulating Hormone (TSH) 2.665 uiU/mL (0.358-3.740) Free Thyroxine 0.77 NG/DL (0.76-1.46) Current Medications Medications (Trade) Dose Ordered Sig/Conrado Route PRN Reason Start Time Stop Time Status Last Admin Dose Admin Acetaminophen (Tylenol) 650 mg Q4H PRN ORAL Mild Pain/Temp > 100.5 06/16/17 17:45 07/16/17 13:44 06/18/17 00:42 Atropine Sulfate (Atropine 1mg/ml Inj) 0.5 mg EVERY HOUR PRN IVP HR<35 BPM 06/16/17 16:15 07/16/17 16:14 Clonidine HCl (Catapres) 0.1 mg Q2H PRN ORAL SBP Greater than 170 06/18/17 12:30 07/18/17 12:29 Dextrose (Dextrose 50%) STAT PRN IV Hypoglycemia 06/17/17 08:15 07/17/17 08:14 06/18/17 05:25 Dextrose/ Electrolytes 1,000 ml @ 100 mls/hr Q10H IV 06/18/17 09:00 07/18/17 08:59 06/19/17 14:30 Insulin Aspart (NovoLOG) EVERY 4 HOURS SUBQ 06/17/17 09:00 07/17/17 08:59 06/19/17 08:05 Insulin Detemir (Levemir) 9 units Q12HR SUBQ 06/18/17 21:00 07/18/17 20:59 06/19/17 08:06 Lorazepam (Ativan 2mg/ml 1ml) 1 mg Q4H PRN IV For Anxiety 06/16/17 18:39 06/23/17 18:38 06/19/17 03:16 Morphine Sulfate (Morphine Sulfate) 2 mg Q4HR PRN IVP Moderate Pain (Pain Scale 4-6) 06/16/17 17:00 06/23/17 00:59 Ondansetron HCl (Zofran) 4 mg Q6H PRN IVP Nausea & Vomiting 06/16/17 19:00 07/16/17 00:59 Pantoprazole (Protonix) 40 mg ACBREAKFAST ORAL 06/19/17 06:30 07/17/17 08:59 06/19/17 06:11 Piperacillin Sod/ Tazobactam Sod 3.375 gm/Dextrose 110 ml @ 27.5 mls/hr Q8H IVPB 06/16/17 17:00 06/23/17 16:59 06/19/17 07:52 Thiamine HCl 100 mg/Folic Acid 1 mg/Multivitamins 10 ml/Sodium Chloride 1,011.2 ml @ 125 mls/ hr DAILY IV 06/17/17 09:30 07/17/17 09:29 06/19/17 09:13 Saad Cummings M.D. Jun 19, 2017 15:02
--- NOTE | 2017-06-19 15:06 | Diagnostic Imaging Report ---
Indication: Cough Technique: XRAY Chest 1v Comparison: None Findings: Cardiac mediastinal silhouette is within normal limits. Bibasilar airspace opacities are seen. Osseous structures demonstrate no acute unremarkable. Impression: Bibasilar airspace infiltrates. Clinical correlation/follow-up recommended.
--- NOTE | 2017-06-19 15:06 | Diagnostic Imaging Report ---
Indication: Shortness of breath Technique: XRAY Chest 1v Comparison: 06/16/2017 Findings: Endotracheal tube and nasogastric tube are present. The cardiomediastinal silhouette is stable. There is slightly decreased but persistent pulmonary edema. Osseous structures are stable. Impression: Slightly decreased but persistent pulmonary edema.
--- NOTE | 2017-06-19 15:06 | Diagnostic Imaging Report ---
Indication: Abdominal pain Technique: CT scan of the abdomen and pelvis utilizing automated exposure control without intravenous or oral contrast. Axial, sagittal and coronal images were obtained. CT dose: Total DLP 577 mGycm; CTDI vol 11.0 mGy Comparison: None Findings: Evaluation of the solid organs is limited without intravenous contrast material. Peripheral groundglass and consolidative opacities are seen within the partially visualized lung bases. The adrenal glands, kidneys, liver, spleen and pancreas are grossly unremarkable. Gallbladder is not well seen. There is limited evaluation of the bowel. No mechanical small bowel obstruction is identified. The appendix is normal. There is moderate stool in the colon. There is no free intraperitoneal fluid or air. Bladder is distended. The osseous structures demonstrate no acute abnormality. Impression: Evaluation limited by motion and lack of intravenous and oral contrast. Normal appendix. No mechanical bowel obstruction. Distended bladder. Clinical correlation recommended. Air space opacities in the partially visualized lung bases suggestive of infiltrates. Clinical correlation/follow-up recommended. The CT scanner at [facility] is accredited by the [employer] and the scans are performed using protocols designed to limit radiation exposure to as low as reasonably achievable to attain images of sufficient resolution adequate for diagnostic evaluation.
--- NOTE | 2017-06-19 15:06 | Diagnostic Imaging Report ---
Indication: Nasogastric tube placement Technique: XRAY Chest 1v Comparison: 06/15/2017 Findings: Endotracheal tube is in satisfactory position. Nasogastric tube is within the stomach. Cardiomediastinal silhouette is stable. There is markedly increasing bilateral airspace disease. Osseous structures are stable. Impression: Satisfactory intubation and nasogastric tube placement. Markedly increased bilateral airspace edema/infiltrates.
--- NOTE | 2017-06-19 16:22 | Cardiac Electrophysiology PN ---
Assessment/Plan Assessment/Plan 1. Troponin leak. Peak levels are flat and likely due to renal failure. The creatinine of 3.5 Echocardiogram EF60% 2. Tachycardia due to diabetic ketoacidosis, possible sepsis. 3. Respiratory failure on Vent 4. Pneumonia, on vancomycin and Zosyn for coverage per Dr. Cummings. 5. Pancreatitis. 6. Alcohol withdrawal. 7. Marijuana use. 8. Suspect diffuse cerebral anoxia and edema. REFUGIO RN Subjective Subjective In ICU on vent.No SVT or VT or yusuf. Unresponsive.Just had CT brain Objective Last 24 Hour Vital Signs Date Time Temp Pulse Resp B/P (MAP) Pulse Ox O2 Delivery O2 Flow Rate FiO2 06/19/17 15:20 76 28 45 06/19/17 15:00 88 20 138/66 100 Mechanical Ventilator 45 06/19/17 14:00 95 27 161/82 100 Mechanical Ventilator 45 06/19/17 13:00 96 22 162/81 100 Mechanical Ventilator 45 06/19/17 13:00 96 25 45 06/19/17 12:00 88 06/19/17 12:00 98.3 94 30 159/77 100 Mechanical Ventilator 45 06/19/17 12:00 45 06/19/17 11:00 89 20 168/76 100 Mechanical Ventilator 45 06/19/17 10:58 95 22 45 06/19/17 10:00 93 27 161/79 100 Mechanical Ventilator 45 06/19/17 09:27 95 29 45 06/19/17 09:00 93 20 173/80 100 Mechanical Ventilator 45 06/19/17 08:00 98.7 96 31 173/87 100 Mechanical Ventilator 45 06/19/17 08:00 96 06/19/17 08:00 45 06/19/17 07:29 96 28 45 06/19/17 07:00 92 29 171/89 100 Mechanical Ventilator 45 06/19/17 06:00 94 27 171/92 100 Mechanical Ventilator 45 06/19/17 05:20 96 25 45 06/19/17 05:00 95 21 162/82 100 Mechanical Ventilator 45 06/19/17 04:00 99.0 97 24 154/77 99 Mechanical Ventilator 45 06/19/17 04:00 97 06/19/17 04:00 45 06/19/17 03:30 98 27 45 06/19/17 03:00 100 24 130/77 100 Mechanical Ventilator 45 06/19/17 02:00 94 24 166/90 100 Mechanical Ventilator 45 06/19/17 01:30 95 29 45 06/19/17 01:00 99 25 143/83 100 Mechanical Ventilator 45 06/19/17 00:00 45 06/19/17 00:00 101 06/19/17 00:00 98.9 101 28 143/90 100 Mechanical Ventilator 45 06/18/17 23:30 101 29 45 06/18/17 23:00 105 28 146/86 99 Mechanical Ventilator 45 06/18/17 22:00 106 32 163/93 100 Mechanical Ventilator 45 06/18/17 21:00 104 27 151/89 100 Mechanical Ventilator 45 06/18/17 20:41 102 30 45 06/18/17 20:00 99.2 99 27 187/94 95 Mechanical Ventilator 45 06/18/17 20:00 45 06/18/17 20:00 99 06/18/17 19:30 92 31 45 06/18/17 19:00 102 26 144/91 95 Mechanical Ventilator 45 06/18/17 18:00 101 19 154/101 100 Mechanical Ventilator 45 06/18/17 17:08 104 29 45 06/18/17 17:00 107 25 130/82 100 Mechanical Ventilator 45 Intake and Output 06/18/17 06/19/17 19:00 07:00 Intake Total 2153.75 ml 1227.5 ml Output Total 1100 ml 1090 ml Balance 1053.75 ml 137.5 ml Intake IV Total 2153.75 ml 1227.5 ml Output Urine Total 1100 ml 1090 ml # Bowel Movements 1 Laboratory Tests Test 06/19/17 05:00 White Blood Count 10.3 K/UL (4.8-10.8) Red Blood Count 3.22 M/UL (4.70-6.10) L Hemoglobin 10.5 G/DL (14.2-18.0) L Hematocrit 30.0 % (42.0-52.0) L Mean Corpuscular Volume 93 FL (80-99) Mean Corpuscular Hemoglobin 32.5 PG (27.0-31.0) H Mean Corpuscular Hemoglobin Concent 35.0 G/DL (32.0-36.0) Red Cell Distribution Width 10.8 % (11.6-14.8) L Platelet Count 119 K/UL (150-450) L Mean Platelet Volume 7.4 FL (6.5-10.1) Neutrophils (%) (Auto) % (45.0-75.0) Lymphocytes (%) (Auto) % (20.0-45.0) Monocytes (%) (Auto) % (1.0-10.0) Eosinophils (%) (Auto) % (0.0-3.0) Basophils (%) (Auto) % (0.0-2.0) Differential Total Cells Counted 100 Neutrophils % (Manual) 87 % (45-75) H Lymphocytes % (Manual) 7 % (20-45) L Monocytes % (Manual) 6 % (1-10) Eosinophils % (Manual) 0 % (0-3) Basophils % (Manual) 0 % (0-2) Band Neutrophils 0 % (0-8) Platelet Estimate Decreased L Platelet Morphology Normal Hypochromasia 1+ Anisocytosis 1+ Reticulocyte Count 0.4 % (0.0-2.0) Prothrombin Time 10.1 SEC (9.30-11.50) Prothromb Time International Ratio 1.0 (0.9-1.1) Activated Partial Thromboplast Time 32 SEC (23-33) Stool Occult Blood Positive (NEGATIVE) Sodium Level 150 MMOL/L (136-145) H Potassium Level 2.9 MMOL/L (3.5-5.1) L Chloride Level 118 MMOL/L (98-107) H Carbon Dioxide Level 19 MMOL/L (21-32) L Anion Gap 13 mmol/L (5-15) Blood Urea Nitrogen 64 mg/dL (7-18) H Creatinine 3.7 MG/DL (0.55-1.30) H Estimat Glomerular Filtration Rate 23.5 mL/min (>60) Glucose Level 136 MG/DL (74-106) H Calcium Level 7.5 MG/DL (8.5-10.1) L Iron Level 72 ug/dL (50-175) Total Iron Binding Capacity 111 ug/dL (250-450) L Percent Iron Saturation 65 % (15-50) H Unsaturated Iron Binding 39 ug/dL (112-346) L Ferritin 6327 NG/ML (8-388) H Total Bilirubin 0.4 MG/DL (0.2-1.0) Aspartate Amino Transf (AST/SGOT) 1124 U/L (15-37) H Alanine Aminotransferase (ALT/SGPT) 468 U/L (12-78) H Alkaline Phosphatase 135 U/L (46-116) H Total Protein 5.3 G/DL (6.4-8.2) L Albumin 1.8 G/DL (3.4-5.0) L Globulin 3.5 g/dL Albumin/Globulin Ratio 0.5 (1.0-2.7) L Lipase 3721 U/L (73-393) H Vitamin B12 Level 3421 PG/ML (193-986) H Folate 101.4 NG/ML (8.6-58.9) H Thyroid Stimulating Hormone (TSH) 2.665 uiU/mL (0.358-3.740) Free Thyroxine 0.77 NG/DL (0.76-1.46) Objective HEAD AND NECK: Showed no JVD.Orally intubated. OG tube LUNGS: Clear. CARDIOVASCULAR: Tachycardic S1 and S2 with no gallop or murmur. ABDOMEN: Soft and nontender. EXTREMITIES: No pitting edema. ALBERT ROWAN Jun 19, 2017 16:22
[2017-06-19] MEDS ORDERED: NS 500ML ONE (17:22)
[2017-06-19] MEDS ORDERED: 1/2 NS 1000ml IV ONE (17:22)
[2017-06-19] MEDS ORDERED: Tubing IV Secondary IV ONE (17:22)
[2017-06-20] VITALS (24 sets, daily range): BP systolic 115–164; BP diastolic 67–90
[2017-06-20] MEDS: D5 1/2NS w/KCl 20mEq 1,000 ML IV SCH ×2 (00:48→10:38)
[2017-06-20] MEDS: Piperacillin/Tazobactam 3.375 GM in D5W 110 ML IVPB SCH ×3 (00:49→17:33)
[2017-06-20] MEDS: NovoLOG Insulin Flexpen SUBQ SCH ×6 (00:58→21:50)
[2017-06-20] MEDS: LORazepam Inj 2mg/ml 1ml IV PRN (01:48)
[2017-06-20 06:30] LABS: BASOPHILS % (AUTO) 0.6 % (0.0-2.0); EOSINOPHILS % (AUTO) 1.3 % (0.0-3.0); HEMATOCRIT 28.4 % (42.0-52.0); LYMPHOCYTES % (AUTO) 6.9 % (20.0-45.0); MEAN CORPUSCULAR VOLUME 94 FL (80-99); MONOCYTES % (AUTO) 13.4 % (1.0-10.0); NEUTROPHILS % (AUTO) 77.9 % (45.0-75.0); PLATELET COUNT 164 K/UL (150-450); RED BLOOD COUNT 3.02 M/UL (4.70-6.10); RED CELL DISTRIBUTION WIDTH 11.1 % (11.6-14.8); WHITE BLOOD COUNT 8.5 K/UL (4.8-10.8)
[2017-06-20 06:50] LABS: ALANINE AMINOTRANSFERASE 300 U/L (12-78); ALBUMIN 1.5 G/DL (3.4-5.0); ALBUMIN/GLOBULIN RATIO 0.4 (1.0-2.7); ALKALINE PHOSPHATASE 124 U/L (46-116); ANION GAP 13 mmol/L (5-15); ASPARTATE AMINO TRANSFERASE 309 U/L (15-37); BILIRUBIN,TOTAL 0.3 MG/DL (0.2-1.0); BLOOD UREA NITROGEN 51 mg/dL (7-18); CALCIUM 8.4 MG/DL (8.5-10.1); CARBON DIOXIDE 20 MMOL/L (21-32); CHLORIDE 119 MMOL/L (98-107); CREATININE 3.4 MG/DL (0.55-1.30); POTASSIUM 2.8 MMOL/L (3.5-5.1); SODIUM 152 MMOL/L (136-145)
--- NOTE | 2017-06-20 08:34 | Pulmonology Progress Note ---
Assessment/Plan Assessment/Plan IMPRESSION: 1. Respiratory failure 2. Cannabis usage. 3. Diabetic ketoacidosis. 4. Troponin leak. 5. Tachycardia. 6. AMS; suspect anoxic brain injury DISCUSSION: Agree with present management and care. The patient is at this time on vancomycin, insulin, thiamine, normal saline, and Zosyn, which I will all continue. I will begin weaning once the patient is more stable and awake. I will adjust vent settings to AC of 20, tidal volume 550, FiO2 80%. I will follow carefully. Ammonia is normal Reviewed neurology notes Continue vent/ AC mode Subjective Interval Events: CT brain oted; pt remains unrespomnsive Constitutional: Reports: no symptoms HEENT: Repors: no symptoms Respiratory: Reports: no symptoms Cardiovascular: Reports: no symptoms Gastrointestinal/Abdominal: Reports: no symptoms Genitourinary: Reports: no symptoms Allergies: Coded Allergies: No Known Allergies (Unverified , 06/15/17) Objective Last 24 Hour Vital Signs Date Time Temp Pulse Resp B/P (MAP) Pulse Ox O2 Delivery O2 Flow Rate FiO2 06/20/17 08:00 45 06/20/17 08:00 98.9 73 20 132/75 100 Mechanical Ventilator 45 06/20/17 07:23 76 20 45 06/20/17 07:00 82 20 124/78 100 Mechanical Ventilator 45 06/20/17 06:00 77 20 126/75 100 Mechanical Ventilator 45 06/20/17 05:00 98.9 77 22 134/75 100 Mechanical Ventilator 45 06/20/17 04:52 77 28 45 06/20/17 04:00 45 06/20/17 04:00 77 24 138/83 100 Mechanical Ventilator 45 06/20/17 04:00 77 06/20/17 03:00 89 20 121/67 100 Mechanical Ventilator 45 06/20/17 02:43 91 20 45 06/20/17 02:00 93 22 131/67 100 Mechanical Ventilator 45 06/20/17 01:30 90 20 45 06/20/17 01:00 91 30 164/82 100 Mechanical Ventilator 45 06/20/17 00:00 98.8 87 25 146/70 100 Mechanical Ventilator 45 06/20/17 00:00 89 06/20/17 00:00 45 06/19/17 23:09 89 26 45 06/19/17 23:00 89 23 148/78 100 Mechanical Ventilator 45 06/19/17 22:00 95 28 139/69 100 Mechanical Ventilator 45 06/19/17 21:11 89 24 45 06/19/17 21:00 107 32 166/82 100 Mechanical Ventilator 45 06/19/17 20:00 93 06/19/17 20:00 45 06/19/17 20:00 99.2 93 30 148/88 100 Mechanical Ventilator 45 06/19/17 19:30 88 21 45 06/19/17 19:00 98 29 159/90 100 Mechanical Ventilator 45 06/19/17 18:00 90 20 137/67 100 Mechanical Ventilator 45 06/19/17 17:00 90 20 155/75 100 Mechanical Ventilator 45 06/19/17 16:46 89 20 45 06/19/17 16:00 45 06/19/17 16:00 99.3 88 20 167/86 100 Mechanical Ventilator 45 06/19/17 16:00 88 06/19/17 15:20 76 28 45 06/19/17 15:00 88 20 138/66 100 Mechanical Ventilator 45 06/19/17 14:00 95 27 161/82 100 Mechanical Ventilator 45 06/19/17 13:00 96 22 162/81 100 Mechanical Ventilator 45 06/19/17 13:00 96 25 45 06/19/17 12:00 88 06/19/17 12:00 98.3 94 30 159/77 100 Mechanical Ventilator 45 06/19/17 12:00 45 06/19/17 11:00 89 20 168/76 100 Mechanical Ventilator 45 06/19/17 10:58 95 22 45 06/19/17 10:00 93 27 161/79 100 Mechanical Ventilator 45 06/19/17 09:27 95 29 45 06/19/17 09:00 93 20 173/80 100 Mechanical Ventilator 45 Intake and Output 06/19/17 06/20/17 19:00 07:00 Intake Total 1962.5 ml 1227.5 ml Output Total 705 ml 940 ml Balance 1257.5 ml 287.5 ml Intake IV Total 1962.5 ml 1227.5 ml Output Urine Total 705 ml 940 ml General Appearance: no acute distress HEENT: normocephalic Respiratory/Chest: chest wall non-tender, lungs clear Cardiovascular: normal peripheral pulses, normal rate Abdomen: normal bowel sounds, soft, non tender Extremities: no cyanosis Laboratory Tests 06/20/17 05:00: White Blood Count 8.5, Red Blood Count 3.02L, Hemoglobin 10.0L, Hematocrit 28.4L , Mean Corpuscular Volume 94, Mean Corpuscular Hemoglobin 33.1H, Mean Corpuscular Hemoglobin Concent 35.2, Red Cell Distribution Width 11.1L, Platelet Count 164, Mean Platelet Volume 6.7, Neutrophils (%) (Auto) 77.9H, Lymphocytes (%) (Auto) 6.9L, Monocytes (%) (Auto) 13.4H, Eosinophils (%) (Auto) 1.3, Basophils (%) (Auto) 0.6, Sodium Level 152H, Potassium Level 2.8L, Chloride Level 119H, Carbon Dioxide Level 20L, Anion Gap 13, Blood Urea Nitrogen 51H, Creatinine 3.4H, Estimat Glomerular Filtration Rate 25.9, Glucose Level 104, Calcium Level 8.4L, Total Bilirubin 0.3, Aspartate Amino Transf (AST/ SGOT) 309H, Alanine Aminotransferase (ALT/SGPT) 300H, Alkaline Phosphatase 124H , Total Protein 5.1L, Albumin 1.5L, Globulin 3.6, Albumin/Globulin Ratio 0.4L Current Medications Medications (Trade) Dose Ordered Sig/Conrado Route PRN Reason Start Time Stop Time Status Last Admin Dose Admin Acetaminophen (Tylenol) 650 mg Q4H PRN ORAL Mild Pain/Temp > 100.5 06/16/17 17:45 07/16/17 13:44 06/18/17 00:42 Atropine Sulfate (Atropine 1mg/ml Inj) 0.5 mg EVERY HOUR PRN IVP HR<35 BPM 06/16/17 16:15 07/16/17 16:14 Clonidine HCl (Catapres) 0.1 mg Q2H PRN ORAL SBP Greater than 170 06/18/17 12:30 07/18/17 12:29 Dextrose (Dextrose 50%) STAT PRN IV Hypoglycemia 06/17/17 08:15 07/17/17 08:14 06/18/17 05:25 Dextrose/ Electrolytes 1,000 ml @ 100 mls/hr Q10H IV 06/18/17 09:00 07/18/17 08:59 06/20/17 00:48 Insulin Aspart (NovoLOG) EVERY 4 HOURS SUBQ 06/17/17 09:00 07/17/17 08:59 06/20/17 00:58 Insulin Detemir (Levemir) 9 units Q12HR SUBQ 06/18/17 21:00 07/18/17 20:59 06/19/17 21:22 Lorazepam (Ativan 2mg/ml 1ml) 1 mg Q4H PRN IV For Anxiety 06/16/17 18:39 06/23/17 18:38 06/20/17 01:48 Morphine Sulfate (Morphine Sulfate) 2 mg Q4HR PRN IVP Moderate Pain (Pain Scale 4-6) 06/16/17 17:00 06/23/17 00:59 Ondansetron HCl (Zofran) 4 mg Q6H PRN IVP Nausea & Vomiting 06/16/17 19:00 07/16/17 00:59 Pantoprazole (Protonix) 40 mg ACBREAKFAST ORAL 06/19/17 06:30 07/17/17 08:59 06/20/17 06:34 Piperacillin Sod/ Tazobactam Sod 3.375 gm/Dextrose 110 ml @ 27.5 mls/hr Q8H IVPB 06/16/17 17:00 06/23/17 16:59 06/20/17 00:49 Paulo Floyd MD Jun 20, 2017 08:34
[2017-06-20] MEDS: Levemir Flexpen SUBQ SCH ×2 (09:05→21:49)
--- NOTE | 2017-06-20 09:43 | Consultation ---
DATE OF CONSULTATION: 06/19/2017 NEUROLOGICAL CONSULTATION CONSULTING PHYSICIAN: Timoteo Cano M.D. ATTENDING/REQUESTING PHYSICIAN: Gopi Matson M.D. HISTORY OF PRESENT ILLNESS: This is a 32-year-old man seen in neurological consultation to evaluate new onset of unresponsiveness. The patient unable to provide with history, so medical records were reviewed. Apparently in the last couple of days, the patient was increasingly weak and finally presented with changes in mental status. Paramedics were called to the scene. Blood sugar was 500. He was brought to emergency room. Blood pressure 135/68, heart rate of 60, and temperature 95.6. His initial laboratory studies included a CBC study with WBC 15.6, elevated MCV and MCH. Normal coagulation panel. Urinalysis with 4+ ketones, 4+ glucose. Chemistry panel included sodium 119, potassium 6.2, BUN of 72, creatinine 2.7, and blood sugar 1062. Troponin was elevated at 0.076 and lipase of 4514. Toxicology panel positive for marijuana. The patient was diagnosed with ketoacidosis. He was able to respond verbally stating that he is very weak and unable to get out of the bed and he was confused with tachypnea. The patient received normal saline bolus, started on insulin drip, and admitting to intensive care. His EKG with no PVC, no ectopies, normal sinus rhythm. Chest x-ray revealed bilateral infiltrates compatible with pneumonia. Repeat study today revealed patchy infiltrates versus pulmonary edema, slightly improving from the last exam. His infectious disease assessment, admitted in presence of pneumonia, sepsis, pancreatitis, DKA, metabolic acidosis, and evidence of alcohol withdrawal. Following day, the patient continued to be altered, unable to provide with history, and family informed again that he was not feeling well for at least couple of days. He was described as agitated having severe chills. He continued to be lethargic with chills. The family was unable to tell if it was recent alcohol abuse, although he occasionally does drink alcohol and smokes marijuana. On 06/15/2017, at nighttime, he developed Code Blue. He was bradycardic and in asystole. CPR was supervised by emergency department. Epinephrine was given, bicarbonate. He was intubated, not responding to painful stimulation, and transferred to ICU. Following day, there was second Code Blue called to ICU, again bradycardia, then asystole, epinephrine and atropine were given, CPR was in process. Prior ABG with severe acidosis. Since then until present, the patient remained unresponsive and neurological consult was requested. His latest laboratory studies included elevated sodium of 150, potassium 2.9, BUN of 64, creatinine 3.7, and blood sugar 126. Elevated AST and ALT of 1124 and 468. Ammonia level 23. Elevated lipase 3721. CT scan of the brain was obtained. This revealed moderate diffuse brain swelling, this most likely is a result of anoxic brain damage. PAST MEDICAL HISTORY: The patient has history of insulin-dependent diabetes mellitus and history of alcohol abuse. MEDICATIONS: Treatment prior to admission included Zofran, insulin, and Protonix. Currently, added thiamine, Ativan p.r.n., and morphine p.r.n. No sedation given. FAMILY HISTORY: Unavailable. REVIEW OF SYMPTOMS: Unable to obtain due to the patient's status. PHYSICAL EXAMINATION: GENERAL: A well-developed, ill-appearing, cachectic man, not in acute distress, intubated. VITAL SIGNS: Blood pressure 160/82, he does overbreathe vent of 20. HEENT: Head normocephalic. There is no evidence of trauma. Eyes, ears, nose, and throat are clear. NECK: Supple. No meningeal signs. MUSCULOSKELETAL: No deformities. Peripheral pulses 1+, symmetric. MENTAL STATUS: The patient is unresponsive to voice or pain stimulation. CRANIAL NERVE II: Pupils 4 mm, sluggishly responding to light. Spontaneously opening eyes with right gaze preference. No nystagmus. On doll maneuver, there appears full range of motion. CRANIAL NERVE V: Normal corneal responses. CRANIAL NERVE VII: No facial asymmetry. CRANIAL NERVE VIII: Not tested. CRANIAL NERVES IX THROUGH XII: Absent gag response. MOTOR EXAMINATION: Diffuse rigidity to both upper and lower extremities. No spontaneous movement. Deep tendon reflexes depressed bilaterally. Plantar responses mute. SENSORY EXAMINATION: No response to pin stimulation. IMPRESSION: 1. Status post full arrest x2, resulted in severe anoxic encephalopathy. 2. Hepatorenal syndrome. 3. Pneumonia. 4. Sepsis. 5. Metabolic acidosis. 6. History of substance abuse. DISCUSSION: 1. This patient is in critical position, we will contemplate use of mannitol if any signs of central herniation noted. 2. We will continue close ICU monitoring, maintain proper blood sugar control, metabolic correction. 3. We will obtain electroencephalogram to evaluate for any ongoing seizure events. Thank you for allowing me to see this interesting patient in neurological consultation. Timoteo Cano M.D. DR: GILDARDO JOB#: [id number] CC:
--- NOTE | 2017-06-20 11:43 | Neurology Progress Note ---
Interim History Interim History ROS Limited/Unobtainable: Yes Complaints: coma Events: unchanged Objective Physical Exam Last Vital Signs Date Time Temp Pulse Resp B/P (MAP) Pulse Ox O2 Delivery O2 Flow Rate FiO2 06/20/17 11:00 76 20 45 06/20/17 11:00 129/77 100 Mechanical Ventilator 06/20/17 08:00 98.9 Laboratory Tests Test 06/20/17 05:00 White Blood Count 8.5 K/UL (4.8-10.8) Red Blood Count 3.02 M/UL (4.70-6.10) L Hemoglobin 10.0 G/DL (14.2-18.0) L Hematocrit 28.4 % (42.0-52.0) L Mean Corpuscular Volume 94 FL (80-99) Mean Corpuscular Hemoglobin 33.1 PG (27.0-31.0) H Mean Corpuscular Hemoglobin Concent 35.2 G/DL (32.0-36.0) Red Cell Distribution Width 11.1 % (11.6-14.8) L Platelet Count 164 K/UL (150-450) Mean Platelet Volume 6.7 FL (6.5-10.1) Neutrophils (%) (Auto) 77.9 % (45.0-75.0) H Lymphocytes (%) (Auto) 6.9 % (20.0-45.0) L Monocytes (%) (Auto) 13.4 % (1.0-10.0) H Eosinophils (%) (Auto) 1.3 % (0.0-3.0) Basophils (%) (Auto) 0.6 % (0.0-2.0) Sodium Level 152 MMOL/L (136-145) H Potassium Level 2.8 MMOL/L (3.5-5.1) L Chloride Level 119 MMOL/L (98-107) H Carbon Dioxide Level 20 MMOL/L (21-32) L Anion Gap 13 mmol/L (5-15) Blood Urea Nitrogen 51 mg/dL (7-18) H Creatinine 3.4 MG/DL (0.55-1.30) H Estimat Glomerular Filtration Rate 25.9 mL/min (>60) Glucose Level 104 MG/DL (74-106) Calcium Level 8.4 MG/DL (8.5-10.1) L Total Bilirubin 0.3 MG/DL (0.2-1.0) Aspartate Amino Transf (AST/SGOT) 309 U/L (15-37) H Alanine Aminotransferase (ALT/SGPT) 300 U/L (12-78) H Alkaline Phosphatase 124 U/L (46-116) H Total Protein 5.1 G/DL (6.4-8.2) L Albumin 1.5 G/DL (3.4-5.0) L Globulin 3.6 g/dL Albumin/Globulin Ratio 0.4 (1.0-2.7) L General: other - cachectic, intubated,not overbreathing vent Head: normocophalic, atraumatic Neck: no rigidity EENT: benign Neurologic Exam Mental Status: other - coma Speech: other Language: other Cranial Nerve II: no papilledema Cranial Nerves III, IV, : pupils - 4mmsluggish Cranial Nerve V: other - no corneal Cranial Nerve VII: other Cranial Nerve VIII: no nystagmus Cranial Nerve IX: other - no gag Cranial Nerve XI: other Cranial Nerve XII: no tongue atrophy/fasciculations Motor System: other - diffuse rigidity Sensory: other Coordination: other Deep Tendon Reflexes: 0 bicep (L), 0 bicep (R), 0 tricep (L), 0 tricep (R), 0 brachioradialis (L), 0 brachioradialis (R), 0 knee (L), 0 knee (R), 0 ankle (L) , 0 ankle (R) Reflexes: mute plantar (L), mute plantar (R) Stance: other Gait: other Impression/Recommendations Problems: (1) Anoxic encephalopathy syndrome (2) Anoxic cerebral edema (3) DKA (diabetic ketoacidosis) (4) Cardiopulmonary arrest (5) Respiratory distress (6) Acidosis Status: not improved, unchanged Recommendations #[id number] hyperventilation ordered BLAINE VILLEGAS Jun 20, 2017 11:43
--- NOTE | 2017-06-20 13:43 | Infectious Diseases Prog Note ---
Assessment/Plan Problems: (1) Pneumonia Assessment & Plan: with diffuse patchy infiltrates, suspect aspiration due to altered mental status , await sputum culture, continue zosyn empiric coverage for now . keep off vancomycin to avoid nephrotoxicity . repeat CXR for follow up showed some improvement (2) Sepsis Assessment & Plan: due to the above, blood culture is negative , continue zosyn empirically (3) Pancreatitis Assessment & Plan: suspect due to alchol abuse, monitor lipase, keep npo, GI follow up (4) DKA (diabetic ketoacidosis) Assessment & Plan: improved, S/P insulin drip ,continue close monitor of blood glucose , avoid hypoglycemia . (5) Acidosis Assessment & Plan: due to the above , continue hydration (6) Alcohol withdrawal Assessment & Plan: on CIWA protocol , continue close monitor in ICU (7) Fever Assessment & Plan: resolved , suspect due to the above , continue tylenol empirically, monitor culture (8) Cardiopulmonary arrest Assessment & Plan: intubated on mechanical ventilation , monitor ABG, cardiology and pulmonary team are following (9) Anoxic cerebral edema Assessment & Plan: neurology is following , has poor prognosis Assessment/Plan D/W father at bedside . Subjective ROS Limited/Unobtainable: Yes Allergies: Coded Allergies: No Known Allergies (Unverified , 06/15/17) Subjective he is still intubated on mechanical ventilation , comfortable, not agitated , dosen't respond to verbal commands , tachycardic , afebrile, no diarrhea or significant secretions . making good urine . Objective Vital Signs Last 24 Hour Vital Signs Date Time Temp Pulse Resp B/P (MAP) Pulse Ox O2 Delivery O2 Flow Rate FiO2 06/20/17 13:00 82 25 134/78 100 Mechanical Ventilator 45 06/20/17 12:47 73 20 45 06/20/17 12:00 45 06/20/17 12:00 81 06/20/17 12:00 98.3 81 25 130/74 100 Mechanical Ventilator 45 06/20/17 11:00 76 20 45 06/20/17 11:00 76 20 129/77 100 Mechanical Ventilator 45 06/20/17 10:00 74 20 129/78 100 Mechanical Ventilator 45 06/20/17 09:29 78 20 45 06/20/17 09:00 79 22 115/69 100 Mechanical Ventilator 45 06/20/17 08:00 45 06/20/17 08:00 72 1/10/18 08:00 98.9 73 20 132/75 100 Mechanical Ventilator 45 06/20/17 07:23 76 20 45 06/20/17 07:00 82 20 124/78 100 Mechanical Ventilator 45 06/20/17 06:00 77 20 126/75 100 Mechanical Ventilator 45 06/20/17 05:00 98.9 77 22 134/75 100 Mechanical Ventilator 45 06/20/17 04:52 77 28 45 06/20/17 04:00 45 06/20/17 04:00 77 24 138/83 100 Mechanical Ventilator 45 06/20/17 04:00 77 06/20/17 03:00 89 20 121/67 100 Mechanical Ventilator 45 06/20/17 02:43 91 20 45 06/20/17 02:00 93 22 131/67 100 Mechanical Ventilator 45 06/20/17 01:30 90 20 45 06/20/17 01:00 91 30 164/82 100 Mechanical Ventilator 45 06/20/17 00:00 98.8 87 25 146/70 100 Mechanical Ventilator 45 06/20/17 00:00 89 06/20/17 00:00 45 06/19/17 23:09 89 26 45 06/19/17 23:00 89 23 148/78 100 Mechanical Ventilator 45 06/19/17 22:00 95 28 139/69 100 Mechanical Ventilator 45 06/19/17 21:11 89 24 45 06/19/17 21:00 107 32 166/82 100 Mechanical Ventilator 45 06/19/17 20:00 93 06/19/17 20:00 45 06/19/17 20:00 99.2 93 30 148/88 100 Mechanical Ventilator 45 06/19/17 19:30 88 21 45 06/19/17 19:00 98 29 159/90 100 Mechanical Ventilator 45 06/19/17 18:00 90 20 137/67 100 Mechanical Ventilator 45 06/19/17 17:00 90 20 155/75 100 Mechanical Ventilator 45 06/19/17 16:46 89 20 45 06/19/17 16:00 45 06/19/17 16:00 99.3 88 20 167/86 100 Mechanical Ventilator 45 06/19/17 16:00 88 06/19/17 15:20 76 28 45 06/19/17 15:00 88 20 138/66 100 Mechanical Ventilator 45 06/19/17 14:00 95 27 161/82 100 Mechanical Ventilator 45 Height (Feet): 5 Height (Inches): 7.00 Weight (Pounds): 111 General Appearance: WD/WN, no acute distress HEENT: normocephalic, atraumatic, anicteric, mucous membranes moist, PERRL, supple, no JVD Respiratory/Chest: chest wall non-tender, normal breath sounds, no respiratory distress, no accessory muscle use, decreased breath sounds Cardiovascular: normal peripheral pulses, normal rate, regular rhythm, no gallop/murmur, no JVD Abdomen: normal bowel sounds, soft, non tender, no organomegaly, non distended , no mass, no scars Extremities: no cyanosis, no clubbing Skin: no rash, no lesions, no ulcers Neurologic/Psychiatric: unresponsiveness Lymphatic: no neck adenopathy, no groin adenopathy Laboratory Tests Test 06/20/17 05:00 White Blood Count 8.5 K/UL (4.8-10.8) Red Blood Count 3.02 M/UL (4.70-6.10) L Hemoglobin 10.0 G/DL (14.2-18.0) L Hematocrit 28.4 % (42.0-52.0) L Mean Corpuscular Volume 94 FL (80-99) Mean Corpuscular Hemoglobin 33.1 PG (27.0-31.0) H Mean Corpuscular Hemoglobin Concent 35.2 G/DL (32.0-36.0) Red Cell Distribution Width 11.1 % (11.6-14.8) L Platelet Count 164 K/UL (150-450) Mean Platelet Volume 6.7 FL (6.5-10.1) Neutrophils (%) (Auto) 77.9 % (45.0-75.0) H Lymphocytes (%) (Auto) 6.9 % (20.0-45.0) L Monocytes (%) (Auto) 13.4 % (1.0-10.0) H Eosinophils (%) (Auto) 1.3 % (0.0-3.0) Basophils (%) (Auto) 0.6 % (0.0-2.0) Sodium Level 152 MMOL/L (136-145) H Potassium Level 2.8 MMOL/L (3.5-5.1) L Chloride Level 119 MMOL/L (98-107) H Carbon Dioxide Level 20 MMOL/L (21-32) L Anion Gap 13 mmol/L (5-15) Blood Urea Nitrogen 51 mg/dL (7-18) H Creatinine 3.4 MG/DL (0.55-1.30) H Estimat Glomerular Filtration Rate 25.9 mL/min (>60) Glucose Level 104 MG/DL (74-106) Calcium Level 8.4 MG/DL (8.5-10.1) L Total Bilirubin 0.3 MG/DL (0.2-1.0) Aspartate Amino Transf (AST/SGOT) 309 U/L (15-37) H Alanine Aminotransferase (ALT/SGPT) 300 U/L (12-78) H Alkaline Phosphatase 124 U/L (46-116) H Total Protein 5.1 G/DL (6.4-8.2) L Albumin 1.5 G/DL (3.4-5.0) L Globulin 3.6 g/dL Albumin/Globulin Ratio 0.4 (1.0-2.7) L Current Medications Medications (Trade) Dose Ordered Sig/Conrado Route PRN Reason Start Time Stop Time Status Last Admin Dose Admin Acetaminophen (Tylenol) 650 mg Q4H PRN ORAL Mild Pain/Temp > 100.5 06/16/17 17:45 07/16/17 13:44 06/18/17 00:42 Atropine Sulfate (Atropine 1mg/ml Inj) 0.5 mg EVERY HOUR PRN IVP HR<35 BPM 06/16/17 16:15 07/16/17 16:14 Clonidine HCl (Catapres) 0.1 mg Q2H PRN ORAL SBP Greater than 170 06/18/17 12:30 07/18/17 12:29 Dextrose (Dextrose 50%) STAT PRN IV Hypoglycemia 06/17/17 08:15 07/17/17 08:14 06/18/17 05:25 Dextrose/ Electrolytes 1,000 ml @ 100 mls/hr Q10H IV 06/18/17 09:00 07/18/17 08:59 06/20/17 10:38 Insulin Aspart (NovoLOG) EVERY 4 HOURS SUBQ 06/17/17 09:00 07/17/17 08:59 06/20/17 12:48 Insulin Detemir (Levemir) 9 units Q12HR SUBQ 06/18/17 21:00 07/18/17 20:59 06/20/17 09:05 Lorazepam (Ativan 2mg/ml 1ml) 1 mg Q4H PRN IV For Anxiety 06/16/17 18:39 06/23/17 18:38 06/20/17 01:48 Morphine Sulfate (Morphine Sulfate) 2 mg Q4HR PRN IVP Moderate Pain (Pain Scale 4-6) 06/16/17 17:00 06/23/17 00:59 Ondansetron HCl (Zofran) 4 mg Q6H PRN IVP Nausea & Vomiting 06/16/17 19:00 07/16/17 00:59 Pantoprazole (Protonix) 40 mg ACBREAKFAST ORAL 06/19/17 06:30 07/17/17 08:59 06/20/17 06:34 Piperacillin Sod/ Tazobactam Sod 3.375 gm/Dextrose 110 ml @ 27.5 mls/hr Q8H IVPB 06/16/17 17:00 06/23/17 16:59 06/20/17 09:03 Saad Cummings M.D. Jun 20, 2017 13:43
--- NOTE | 2017-06-20 14:40 | GI Progress Note ---
Assessment/Plan Problems: (1) Shock liver ICD Codes: K72.00 - Acute and subacute hepatic failure without coma SNOMED: 683783430 (2) Anoxic cerebral edema ICD Codes: G93.6 - Cerebral edema; R09.02 - Hypoxemia SNOMED: 7070903, 941012320 (3) Transaminitis ICD Codes: R74.0 - Nonspecific elevation of levels of transaminase and lactic acid dehydrogenase [LDH] SNOMED: 882014942, 993040878 (4) Alcohol withdrawal ICD Codes: F10.239 - Alcohol dependence with withdrawal, unspecified SNOMED: 138321071 (5) Pancreatitis ICD Codes: K85.90 - Acute pancreatitis without necrosis or infection, unspecified SNOMED: 32575362 Status: not improved, unchanged Status Narrative Discussed with Dr. Rico. Assessment/Plan head CT reviewed >> Suspect diffuse cerebral anoxia and edema. utox positive marijuana macrocytic hyperchromic anemia OB stool positive defer GI procedures at this time, respiratory status not stable maintain NPO + IVFs at this time given DKA, elevated lipase and shocked liver DM mgmt electrolyte correction rising LFTs >> shocked liver follow lipase ppi BID hold iron supplementation given elevated ferritin monitor H&H, prn transfusions fu labs Subjective Subjective limited Objective Last 24 Hour Vital Signs Date Time Temp Pulse Resp B/P (MAP) Pulse Ox O2 Delivery O2 Flow Rate FiO2 06/20/17 14:00 87 30 134/74 100 Mechanical Ventilator 45 06/20/17 13:00 82 25 134/78 100 Mechanical Ventilator 45 06/20/17 12:47 73 20 45 06/20/17 12:00 45 06/20/17 12:00 81 06/20/17 12:00 98.3 81 25 130/74 100 Mechanical Ventilator 45 06/20/17 11:00 76 20 45 06/20/17 11:00 76 20 129/77 100 Mechanical Ventilator 45 06/20/17 10:00 74 20 129/78 100 Mechanical Ventilator 45 06/20/17 09:29 78 20 45 06/20/17 09:00 79 22 115/69 100 Mechanical Ventilator 45 06/20/17 08:00 45 06/20/17 08:00 72 06/20/17 08:00 98.9 73 20 132/75 100 Mechanical Ventilator 45 06/20/17 07:23 76 20 45 06/20/17 07:00 82 20 124/78 100 Mechanical Ventilator 45 06/20/17 06:00 77 20 126/75 100 Mechanical Ventilator 45 06/20/17 05:00 98.9 77 22 134/75 100 Mechanical Ventilator 45 06/20/17 04:52 77 28 45 06/20/17 04:00 45 06/20/17 04:00 77 24 138/83 100 Mechanical Ventilator 45 06/20/17 04:00 77 06/20/17 03:00 89 20 121/67 100 Mechanical Ventilator 45 06/20/17 02:43 91 20 45 06/20/17 02:00 93 22 131/67 100 Mechanical Ventilator 45 06/20/17 01:30 90 20 45 06/20/17 01:00 91 30 164/82 100 Mechanical Ventilator 45 06/20/17 00:00 98.8 87 25 146/70 100 Mechanical Ventilator 45 06/20/17 00:00 89 06/20/17 00:00 45 06/19/17 23:09 89 26 45 06/19/17 23:00 89 23 148/78 100 Mechanical Ventilator 45 06/19/17 22:00 95 28 139/69 100 Mechanical Ventilator 45 06/19/17 21:11 89 24 45 06/19/17 21:00 107 32 166/82 100 Mechanical Ventilator 45 06/19/17 20:00 93 06/19/17 20:00 45 06/19/17 20:00 99.2 93 30 148/88 100 Mechanical Ventilator 45 06/19/17 19:30 88 21 45 06/19/17 19:00 98 29 159/90 100 Mechanical Ventilator 45 06/19/17 18:00 90 20 137/67 100 Mechanical Ventilator 45 06/19/17 17:00 90 20 155/75 100 Mechanical Ventilator 45 06/19/17 16:46 89 20 45 06/19/17 16:00 45 06/19/17 16:00 99.3 88 20 167/86 100 Mechanical Ventilator 45 06/19/17 16:00 88 06/19/17 15:20 76 28 45 06/19/17 15:00 88 20 138/66 100 Mechanical Ventilator 45 Intake and Output 06/19/17 06/20/17 19:00 07:00 Intake Total 1962.5 ml 1227.5 ml Output Total 705 ml 940 ml Balance 1257.5 ml 287.5 ml Intake IV Total 1962.5 ml 1227.5 ml Output Urine Total 705 ml 940 ml Laboratory Tests Test 06/20/17 05:00 White Blood Count 8.5 K/UL (4.8-10.8) Red Blood Count 3.02 M/UL (4.70-6.10) L Hemoglobin 10.0 G/DL (14.2-18.0) L Hematocrit 28.4 % (42.0-52.0) L Mean Corpuscular Volume 94 FL (80-99) Mean Corpuscular Hemoglobin 33.1 PG (27.0-31.0) H Mean Corpuscular Hemoglobin Concent 35.2 G/DL (32.0-36.0) Red Cell Distribution Width 11.1 % (11.6-14.8) L Platelet Count 164 K/UL (150-450) Mean Platelet Volume 6.7 FL (6.5-10.1) Neutrophils (%) (Auto) 77.9 % (45.0-75.0) H Lymphocytes (%) (Auto) 6.9 % (20.0-45.0) L Monocytes (%) (Auto) 13.4 % (1.0-10.0) H Eosinophils (%) (Auto) 1.3 % (0.0-3.0) Basophils (%) (Auto) 0.6 % (0.0-2.0) Sodium Level 152 MMOL/L (136-145) H Potassium Level 2.8 MMOL/L (3.5-5.1) L Chloride Level 119 MMOL/L (98-107) H Carbon Dioxide Level 20 MMOL/L (21-32) L Anion Gap 13 mmol/L (5-15) Blood Urea Nitrogen 51 mg/dL (7-18) H Creatinine 3.4 MG/DL (0.55-1.30) H Estimat Glomerular Filtration Rate 25.9 mL/min (>60) Glucose Level 104 MG/DL (74-106) Calcium Level 8.4 MG/DL (8.5-10.1) L Total Bilirubin 0.3 MG/DL (0.2-1.0) Aspartate Amino Transf (AST/SGOT) 309 U/L (15-37) H Alanine Aminotransferase (ALT/SGPT) 300 U/L (12-78) H Alkaline Phosphatase 124 U/L (46-116) H Total Protein 5.1 G/DL (6.4-8.2) L Albumin 1.5 G/DL (3.4-5.0) L Globulin 3.6 g/dL Albumin/Globulin Ratio 0.4 (1.0-2.7) L Height (Feet): 5 Height (Inches): 7.00 Weight (Pounds): 111 General Appearance: lethargic, thin Cardiovascular: normal rate Respiratory/Chest: other - mech vent Abdominal Exam: soft Lashawn Mason N.P. Jun 20, 2017 14:40
--- NOTE | 2017-06-20 15:53 | Cardiac Electrophysiology PN ---
Assessment/Plan Assessment/Plan 1. Troponin leak. Peak levels are flat and likely due to renal failure. The creatinine of 3.5 Echocardiogram EF60% 2. Tachycardia due to diabetic ketoacidosis, possible sepsis. 3. Respiratory failure on Vent 4. Pneumonia, on vancomycin and Zosyn for coverage per Dr. Cummings. 5. Pancreatitis.NPO. 6. Alcohol withdrawal. 7. Marijuana use. 8. Suspect diffuse cerebral anoxia and edema. Keep BP elevated per Dr Cano. REFUGIO RN Subjective Subjective In ICU on vent.No SVT or VT or yusuf. Unresponsive.Off pressors. Objective Last 24 Hour Vital Signs Date Time Temp Pulse Resp B/P (MAP) Pulse Ox O2 Delivery O2 Flow Rate FiO2 06/20/17 15:00 84 30 148/90 100 Mechanical Ventilator 45 06/20/17 14:56 86 31 45 06/20/17 14:00 87 30 134/74 100 Mechanical Ventilator 45 06/20/17 13:00 82 25 134/78 100 Mechanical Ventilator 45 06/20/17 12:47 73 20 45 06/20/17 12:00 45 06/20/17 12:00 81 06/20/17 12:00 98.3 81 25 130/74 100 Mechanical Ventilator 45 06/20/17 11:00 76 20 45 06/20/17 11:00 76 20 129/77 100 Mechanical Ventilator 45 06/20/17 10:00 74 20 129/78 100 Mechanical Ventilator 45 06/20/17 09:29 78 20 45 06/20/17 09:00 79 22 115/69 100 Mechanical Ventilator 45 06/20/17 08:00 45 06/20/17 08:00 72 06/20/17 08:00 98.9 73 20 132/75 100 Mechanical Ventilator 45 06/20/17 07:23 76 20 45 06/20/17 07:00 82 20 124/78 100 Mechanical Ventilator 45 06/20/17 06:00 77 20 126/75 100 Mechanical Ventilator 45 06/20/17 05:00 98.9 77 22 134/75 100 Mechanical Ventilator 45 06/20/17 04:52 77 28 45 06/20/17 04:00 45 06/20/17 04:00 77 24 138/83 100 Mechanical Ventilator 45 06/20/17 04:00 77 06/20/17 03:00 89 20 121/67 100 Mechanical Ventilator 45 06/20/17 02:43 91 20 45 06/20/17 02:00 93 22 131/67 100 Mechanical Ventilator 45 06/20/17 01:30 90 20 45 06/20/17 01:00 91 30 164/82 100 Mechanical Ventilator 45 06/20/17 00:00 98.8 87 25 146/70 100 Mechanical Ventilator 45 06/20/17 00:00 89 06/20/17 00:00 45 06/19/17 23:09 89 26 45 06/19/17 23:00 89 23 148/78 100 Mechanical Ventilator 45 06/19/17 22:00 95 28 139/69 100 Mechanical Ventilator 45 06/19/17 21:11 89 24 45 06/19/17 21:00 107 32 166/82 100 Mechanical Ventilator 45 06/19/17 20:00 93 06/19/17 20:00 45 06/19/17 20:00 99.2 93 30 148/88 100 Mechanical Ventilator 45 06/19/17 19:30 88 21 45 06/19/17 19:00 98 29 159/90 100 Mechanical Ventilator 45 06/19/17 18:00 90 20 137/67 100 Mechanical Ventilator 45 06/19/17 17:00 90 20 155/75 100 Mechanical Ventilator 45 06/19/17 16:46 89 20 45 06/19/17 16:00 45 06/19/17 16:00 99.3 88 20 167/86 100 Mechanical Ventilator 45 06/19/17 16:00 88 Intake and Output 06/19/17 06/20/17 19:00 07:00 Intake Total 1962.5 ml 1227.5 ml Output Total 705 ml 940 ml Balance 1257.5 ml 287.5 ml Intake IV Total 1962.5 ml 1227.5 ml Output Urine Total 705 ml 940 ml Laboratory Tests Test 06/20/17 05:00 White Blood Count 8.5 K/UL (4.8-10.8) Red Blood Count 3.02 M/UL (4.70-6.10) L Hemoglobin 10.0 G/DL (14.2-18.0) L Hematocrit 28.4 % (42.0-52.0) L Mean Corpuscular Volume 94 FL (80-99) Mean Corpuscular Hemoglobin 33.1 PG (27.0-31.0) H Mean Corpuscular Hemoglobin Concent 35.2 G/DL (32.0-36.0) Red Cell Distribution Width 11.1 % (11.6-14.8) L Platelet Count 164 K/UL (150-450) Mean Platelet Volume 6.7 FL (6.5-10.1) Neutrophils (%) (Auto) 77.9 % (45.0-75.0) H Lymphocytes (%) (Auto) 6.9 % (20.0-45.0) L Monocytes (%) (Auto) 13.4 % (1.0-10.0) H Eosinophils (%) (Auto) 1.3 % (0.0-3.0) Basophils (%) (Auto) 0.6 % (0.0-2.0) Sodium Level 152 MMOL/L (136-145) H Potassium Level 2.8 MMOL/L (3.5-5.1) L Chloride Level 119 MMOL/L (98-107) H Carbon Dioxide Level 20 MMOL/L (21-32) L Anion Gap 13 mmol/L (5-15) Blood Urea Nitrogen 51 mg/dL (7-18) H Creatinine 3.4 MG/DL (0.55-1.30) H Estimat Glomerular Filtration Rate 25.9 mL/min (>60) Glucose Level 104 MG/DL (74-106) Calcium Level 8.4 MG/DL (8.5-10.1) L Total Bilirubin 0.3 MG/DL (0.2-1.0) Aspartate Amino Transf (AST/SGOT) 309 U/L (15-37) H Alanine Aminotransferase (ALT/SGPT) 300 U/L (12-78) H Alkaline Phosphatase 124 U/L (46-116) H Total Protein 5.1 G/DL (6.4-8.2) L Albumin 1.5 G/DL (3.4-5.0) L Globulin 3.6 g/dL Albumin/Globulin Ratio 0.4 (1.0-2.7) L Objective HEAD AND NECK: Showed no JVD.Orally intubated. OG tube LUNGS: Clear. CARDIOVASCULAR: Tachycardic S1 and S2 with no gallop or murmur. ABDOMEN: Soft and nontender. EXTREMITIES: No pitting edema. ALBERT ROWAN Jun 20, 2017 15:53
--- NOTE | 2017-06-20 16:28 | Nephrology Progress Note ---
Assessment/Plan Problem List: (1) Hypernatremia (2) Hypokalemia (3) Fever (4) Acidosis (5) Respiratory distress (6) Pancreatitis (7) Elevated troponin (8) Alcohol withdrawal (9) Pneumonia (10) Sepsis (11) Cardiopulmonary arrest (12) Metabolic acidosis (13) DKA (diabetic ketoacidosis) Plan Ordered D5W +K Strict glycemic control BP control Monitor lytes, correct prn Monitor neuro status, neurology following Monitor renal function Avoid nephrotoxins Monitor for withdrawal symptoms Abx per ID F/U with consults AM labs Subjective ROS Limited/Unobtainable: Yes Subjective Seen in the ICU, orally intubated on vent settings, non responsive at this time , adequate urine output noted via carpenter Objective Objective Last 24 Hour Vital Signs Date Time Temp Pulse Resp B/P (MAP) Pulse Ox O2 Delivery O2 Flow Rate FiO2 06/20/17 16:00 45 06/20/17 16:00 98.6 87 27 147/77 100 Mechanical Ventilator 45 06/20/17 15:00 84 30 148/90 100 Mechanical Ventilator 45 06/20/17 14:56 86 31 45 06/20/17 14:00 87 30 134/74 100 Mechanical Ventilator 45 06/20/17 13:00 82 25 134/78 100 Mechanical Ventilator 45 06/20/17 12:47 73 20 45 06/20/17 12:00 45 06/20/17 12:00 81 06/20/17 12:00 98.3 81 25 130/74 100 Mechanical Ventilator 45 06/20/17 11:00 76 20 45 06/20/17 11:00 76 20 129/77 100 Mechanical Ventilator 45 06/20/17 10:00 74 20 129/78 100 Mechanical Ventilator 45 06/20/17 09:29 78 20 45 06/20/17 09:00 79 22 115/69 100 Mechanical Ventilator 45 06/20/17 08:00 45 06/20/17 08:00 72 06/20/17 08:00 98.9 73 20 132/75 100 Mechanical Ventilator 45 06/20/17 07:23 76 20 45 06/20/17 07:00 82 20 124/78 100 Mechanical Ventilator 45 06/20/17 06:00 77 20 126/75 100 Mechanical Ventilator 45 06/20/17 05:00 98.9 77 22 134/75 100 Mechanical Ventilator 45 06/20/17 04:52 77 28 45 06/20/17 04:00 45 06/20/17 04:00 77 24 138/83 100 Mechanical Ventilator 45 06/20/17 04:00 77 06/20/17 03:00 89 20 121/67 100 Mechanical Ventilator 45 06/20/17 02:43 91 20 45 06/20/17 02:00 93 22 131/67 100 Mechanical Ventilator 45 06/20/17 01:30 90 20 45 06/20/17 01:00 91 30 164/82 100 Mechanical Ventilator 45 06/20/17 00:00 98.8 87 25 146/70 100 Mechanical Ventilator 45 06/20/17 00:00 89 06/20/17 00:00 45 06/19/17 23:09 89 26 45 06/19/17 23:00 89 23 148/78 100 Mechanical Ventilator 45 06/19/17 22:00 95 28 139/69 100 Mechanical Ventilator 45 06/19/17 21:11 89 24 45 06/19/17 21:00 107 32 166/82 100 Mechanical Ventilator 45 06/19/17 20:00 93 06/19/17 20:00 45 06/19/17 20:00 99.2 93 30 148/88 100 Mechanical Ventilator 45 06/19/17 19:30 88 21 45 06/19/17 19:00 98 29 159/90 100 Mechanical Ventilator 45 06/19/17 18:00 90 20 137/67 100 Mechanical Ventilator 45 06/19/17 17:00 90 20 155/75 100 Mechanical Ventilator 45 06/19/17 16:46 89 20 45 Intake and Output 06/19/17 06/20/17 19:00 07:00 Intake Total 1962.5 ml 1227.5 ml Output Total 705 ml 940 ml Balance 1257.5 ml 287.5 ml Intake IV Total 1962.5 ml 1227.5 ml Output Urine Total 705 ml 940 ml Laboratory Tests 06/20/17 05:00: White Blood Count 8.5, Red Blood Count 3.02L, Hemoglobin 10.0L, Hematocrit 28.4L , Mean Corpuscular Volume 94, Mean Corpuscular Hemoglobin 33.1H, Mean Corpuscular Hemoglobin Concent 35.2, Red Cell Distribution Width 11.1L, Platelet Count 164, Mean Platelet Volume 6.7, Neutrophils (%) (Auto) 77.9H, Lymphocytes (%) (Auto) 6.9L, Monocytes (%) (Auto) 13.4H, Eosinophils (%) (Auto) 1.3, Basophils (%) (Auto) 0.6, Sodium Level 152H, Potassium Level 2.8L, Chloride Level 119H, Carbon Dioxide Level 20L, Anion Gap 13, Blood Urea Nitrogen 51H, Creatinine 3.4H, Estimat Glomerular Filtration Rate 25.9, Glucose Level 104, Calcium Level 8.4L, Total Bilirubin 0.3, Aspartate Amino Transf (AST/ SGOT) 309H, Alanine Aminotransferase (ALT/SGPT) 300H, Alkaline Phosphatase 124H , Total Protein 5.1L, Albumin 1.5L, Globulin 3.6, Albumin/Globulin Ratio 0.4L Height (Feet): 5 Height (Inches): 7.00 Weight (Pounds): 111 General Appearance: no apparent distress EENT: other - orally intubated Neck: non-tender Cardiovascular: normal rate, no JVD Respiratory/Chest: decreased breath sounds, other - on vent Abdomen: soft Genitourinary/Rectal: other - carpenter Extremities: non-tender, normal inspection Neurologic: unresponsive Hannah Johnson N.P. Jun 20, 2017 16:28
[2017-06-21] VITALS (24 sets, daily range): BP systolic 125–162; BP diastolic 69–91
[2017-06-21] MEDS: Piperacillin/Tazobactam 3.375 GM in D5W 110 ML IVPB SCH ×3 (00:35→16:59)
[2017-06-21] MEDS: NovoLOG Insulin Flexpen SUBQ SCH ×6 (00:37→21:35)
[2017-06-21] MEDS: LORazepam Inj 2mg/ml 1ml IV PRN ×2 (05:29→12:49)
[2017-06-21 05:54] LABS: BASOPHILS % (AUTO) 1.3 % (0.0-2.0); EOSINOPHILS % (AUTO) 1.4 % (0.0-3.0); HEMATOCRIT 29.9 % (42.0-52.0); HEMOGLOBIN 10.5 G/DL (14.2-18.0); MEAN CORPUSCULAR VOLUME 95 FL (80-99); MONOCYTES % (AUTO) 15.6 % (1.0-10.0); NEUTROPHILS % (AUTO) 75.8 % (45.0-75.0); PLATELET COUNT 245 K/UL (150-450); RED BLOOD COUNT 3.15 M/UL (4.70-6.10); RED CELL DISTRIBUTION WIDTH 11.3 % (11.6-14.8); WHITE BLOOD COUNT 10.1 K/UL (4.8-10.8)
[2017-06-21 07:03] LABS: ALANINE AMINOTRANSFERASE 207 U/L (12-78); ALBUMIN 1.5 G/DL (3.4-5.0); ALBUMIN/GLOBULIN RATIO 0.4 (1.0-2.7); ALKALINE PHOSPHATASE 87 U/L (46-116); ANION GAP 14 mmol/L (5-15); ASPARTATE AMINO TRANSFERASE 163 U/L (15-37); BILIRUBIN,TOTAL 0.3 MG/DL (0.2-1.0); BLOOD UREA NITROGEN 46 mg/dL (7-18); CALCIUM 8.4 MG/DL (8.5-10.1); CARBON DIOXIDE 17 MMOL/L (21-32); CHLORIDE 116 MMOL/L (98-107); CREATININE 2.9 MG/DL (0.55-1.30); POTASSIUM 3.2 MMOL/L (3.5-5.1); SODIUM 147 MMOL/L (136-145)
[2017-06-21 07:11] LABS: AMYLASE 550 U/L (25-115)
[2017-06-21] MEDS: Levemir Flexpen SUBQ SCH ×2 (09:14→21:35)
--- NOTE | 2017-06-21 12:08 | Wound Care Consultation ---
Wound Assessment Wound Assessment #1: Wound Number: 1 Wound Present on Admission: No New Wound: Yes Status Change of Wound: No Wound Location Body Site Modif: left, upper Wound Location Body Site: back Wound Type: pressure ulcer Clarissa Test: Does not Clarissa Pressure Ulcer Stage: Deep Tissue Injury Wound Thickness: Full Thickness Wound Length: 4.0 Wound Width: 3.0 Wound Depth: utd Percent of Wound Purple/Maroon: 100 Wound Drainage Amount: None Wound Drainage Odor: None/Absent Tissue Surrounding Wound: Denuded Wound General Appearance: Reddened - Maroon Wound Assessment #2: Wound Number: 2 Wound Present on Admission: No New Wound: Yes Status Change of Wound: No Wound Location Body Site Modif: left, mid, upper Wound Location Body Site: back Wound Type: pressure ulcer Pressure Ulcer Stage: Deep Tissue Injury - scattered Wound Thickness: Full Thickness Wound Depth: utd Percent of Wound Purple/Maroon: 100 Wound Drainage Amount: None Wound Drainage Odor: None/Absent Tissue Surrounding Wound: Intact Wound General Appearance: Reddened - maroon Wound Assessment #3: Wound Number: 3 Wound Location Body Site Modif: left Wound Location Body Site: sacral Wound Type: pressure ulcer Clarisas Test: Does not Clarissa Pressure Ulcer Stage: Deep Tissue Injury Wound Thickness: Full Thickness Wound Length: 9.0 Wound Width: 6.5 Wound Depth: utd Percent of Wound Purple/Maroon: 100 Wound Drainage Amount: None Wound Drainage Odor: None/Absent Tissue Surrounding Wound: Erythemic Wound General Appearance: Reddened - maroon Wound Assessment #4: Wound Number: 4 Wound Present on Admission: No New Wound: Yes Status Change of Wound: No Wound Location Body Site Modif: left, other - tip Wound Location Body Site: toe - 1st Wound Type: pressure ulcer Clarissa Test: Does not Clarissa Pressure Ulcer Stage: Deep Tissue Injury Wound Thickness: Full Thickness Wound Length: 0.8 Wound Width: 0.8 Wound Depth: utd Percent of Wound Purple/Maroon: 100 Wound Drainage Amount: None Wound Drainage Odor: None/Absent Tissue Surrounding Wound: Erythemic Wound General Appearance: Reddened - purple/maroon Wound Assessment #5: Wound Number: 5 Wound Present on Admission: No New Wound: Yes Status Change of Wound: No Wound Location Body Site Modif: right, other - tip Wound Location Body Site: toe Wound Type: pressure ulcer Clarissa Test: Does not Clarissa Pressure Ulcer Stage: Deep Tissue Injury Wound Thickness: Full Thickness Wound Length: 0.8 Wound Width: 0.8 Wound Depth: utd Percent of Wound Purple/Maroon: 100 Wound Drainage Amount: None Wound Drainage Odor: None/Absent Tissue Surrounding Wound: Erythemic Wound General Appearance: Reddened - purple/maroon Wound Assessment #6: Wound Number: 6 Wound Present on Admission: No New Wound: Yes Status Change of Wound: No Wound Location Body Site Modif: left Wound Location Body Site: heel Wound Type: pressure ulcer Clarissa Test: Does not Clarissa Pressure Ulcer Stage: Deep Tissue Injury Wound Thickness: Full Thickness Wound Length: 3.0 Wound Width: 2.0 Wound Depth: utd Percent of Wound Purple/Maroon: 100 Wound Drainage Amount: None Wound Drainage Odor: None/Absent Tissue Surrounding Wound: Intact Wound General Appearance: Reddened - purple/maroon Wound Assessment #7: Wound Number: 7 Wound Present on Admission: No New Wound: Yes Status Change of Wound: No Wound Location Body Site Modif: right Wound Location Body Site: heel Wound Type: pressure ulcer Clarissa Test: Does not Clarissa Pressure Ulcer Stage: Deep Tissue Injury Wound Thickness: Full Thickness Wound Length: 1.0 Wound Width: 1.0 Wound Depth: utd Percent of Wound Purple/Maroon: 100 Wound Drainage Amount: None Wound Drainage Odor: None/Absent Tissue Surrounding Wound: Intact Wound General Appearance: Reddened - purple/maroon Wound Assessment #8: Wound Number: 8 Wound Present on Admission: No New Wound: Yes Status Change of Wound: No Wound Location Body Site Modif: left Wound Location Body Site: ear Wound Type: pressure ulcer Clarissa Test: Does not Clarissa Pressure Ulcer Stage: Deep Tissue Injury Wound Thickness: Full Thickness Wound Length: 2.5 Wound Width: 1.5 Wound Depth: utd Percent of Wound Purple/Maroon: 100 Wound Drainage Amount: None Wound Drainage Odor: None/Absent Tissue Surrounding Wound: Intact Wound General Appearance: Reddened - purple/maroon Wound Comment #1 Left upper back DTI pressure ulcer #2 Mid and right upper back scattered DTI pressure ulcer #3 Left sacral area DTI pressure ulcer #4 Left tip of the big toe DTI pressure ulcer #5 Right tip of the big toe DTI pressure ulcer #6 Left heel DTI pressure ulcer #7 Right heel DTI pressure ulcer #8 Left ear DTI pressure ulcer Recommendation -Local wound care per protocol -Keep clean and dry -Optimize nutrition -Turn and reposition -Offload both heels -Arterial/venous duplex study -Heel protector on both heels -Low air loss P200 mattress -Assess and f/u accordingly for any changes SHIRA VALENTINE RN Jun 21, 2017 12:08
--- NOTE | 2017-06-21 13:29 | Neurology Progress Note ---
Interim History Interim History ROS Limited/Unobtainable: Yes Complaints: coma Events: unchanged, no sz activity Objective Physical Exam Last Vital Signs Date Time Temp Pulse Resp B/P (MAP) Pulse Ox O2 Delivery O2 Flow Rate FiO2 06/21/17 12:00 92 06/21/17 12:00 99.2 28 159/83 100 Mechanical Ventilator 28 Laboratory Tests Test 06/21/17 04:45 White Blood Count 10.1 K/UL (4.8-10.8) Red Blood Count 3.15 M/UL (4.70-6.10) L Hemoglobin 10.5 G/DL (14.2-18.0) L Hematocrit 29.9 % (42.0-52.0) L Mean Corpuscular Volume 95 FL (80-99) Mean Corpuscular Hemoglobin 33.4 PG (27.0-31.0) H Mean Corpuscular Hemoglobin Concent 35.1 G/DL (32.0-36.0) Red Cell Distribution Width 11.3 % (11.6-14.8) L Platelet Count 245 K/UL (150-450) Mean Platelet Volume 7.0 FL (6.5-10.1) Neutrophils (%) (Auto) 75.8 % (45.0-75.0) H Lymphocytes (%) (Auto) 6.0 % (20.0-45.0) L Monocytes (%) (Auto) 15.6 % (1.0-10.0) H Eosinophils (%) (Auto) 1.4 % (0.0-3.0) Basophils (%) (Auto) 1.3 % (0.0-2.0) Sodium Level 147 MMOL/L (136-145) H Potassium Level 3.2 MMOL/L (3.5-5.1) L Chloride Level 116 MMOL/L (98-107) H Carbon Dioxide Level 17 MMOL/L (21-32) L Anion Gap 14 mmol/L (5-15) Blood Urea Nitrogen 46 mg/dL (7-18) H Creatinine 2.9 MG/DL (0.55-1.30) H Estimat Glomerular Filtration Rate 31.1 mL/min (>60) Glucose Level 292 MG/DL (74-106) #H Calcium Level 8.4 MG/DL (8.5-10.1) L Total Bilirubin 0.3 MG/DL (0.2-1.0) Aspartate Amino Transf (AST/SGOT) 163 U/L (15-37) H Alanine Aminotransferase (ALT/SGPT) 207 U/L (12-78) H Alkaline Phosphatase 87 U/L (46-116) Total Protein 5.3 G/DL (6.4-8.2) L Albumin 1.5 G/DL (3.4-5.0) L Globulin 3.8 g/dL Albumin/Globulin Ratio 0.4 (1.0-2.7) L Amylase Level 550 U/L (25-115) *H Lipase 5377 U/L (73-393) H General: other - cachectic, intubated,not overbreathing vent Head: normocophalic, atraumatic Neck: no rigidity EENT: benign Neurologic Exam Mental Status: other - coma Speech: other Language: other Cranial Nerve II: no papilledema, other Cranial Nerves III, IV, : pupils - 4mmsluggish Cranial Nerve V: other - no corneal Cranial Nerve VII: other Cranial Nerve VIII: no nystagmus Cranial Nerve IX: other - no gag Cranial Nerve XI: other Cranial Nerve XII: no tongue atrophy/fasciculations Motor System: other - diffuse rigidity Sensory: other Coordination: other Deep Tendon Reflexes: 0 bicep (L), 0 bicep (R), 0 tricep (L), 0 tricep (R), 0 brachioradialis (L), 0 brachioradialis (R), 0 knee (L), 0 knee (R), 0 ankle (L) , 0 ankle (R) Reflexes: mute plantar (L), mute plantar (R) Stance: other Gait: other Impression/Recommendations Problems: (1) Anoxic encephalopathy syndrome (2) Anoxic cerebral edema (3) DKA (diabetic ketoacidosis) (4) Cardiopulmonary arrest (5) Respiratory distress (6) Acidosis Status: not improved, unchanged, deteriorating Recommendations #[id number] hyperventilation ordered d/w BLAINE Barfield Jun 21, 2017 13:29
--- NOTE | 2017-06-21 14:11 | Pulmonology Progress Note ---
Assessment/Plan Assessment/Plan IMPRESSION: 1. Respiratory failure 2. Cannabis usage. 3. Diabetic ketoacidosis. 4. Troponin leak. 5. Tachycardia. 6. AMS; suspect anoxic brain injury DISCUSSION: Agree with present management and care. The patient is at this time on vancomycin, insulin, thiamine, normal saline, and Zosyn, which I will all continue. I will begin weaning once the patient is more stable and awake. continue vent settings to AC of 20, tidal volume 550, FiO2 80%. Ammonia is normal Reviewed neurology notes Continue vent/ AC mode Subjective Interval Events: remains intubated. Clinically unchanged. Constitutional: Reports: no symptoms HEENT: Repors: no symptoms Respiratory: Reports: no symptoms Cardiovascular: Reports: no symptoms Gastrointestinal/Abdominal: Reports: no symptoms Allergies: Coded Allergies: No Known Allergies (Unverified , 06/15/17) Objective Last 24 Hour Vital Signs Date Time Temp Pulse Resp B/P (MAP) Pulse Ox O2 Delivery O2 Flow Rate FiO2 06/21/17 13:16 90 21 28 06/21/17 12:00 92 06/21/17 12:00 99.2 106 28 159/83 100 Mechanical Ventilator 28 06/21/17 12:00 28 06/21/17 11:00 89 27 139/82 98 Mechanical Ventilator 30 06/21/17 10:43 94 28 28 06/21/17 10:00 91 25 131/74 97 Mechanical Ventilator 30 06/21/17 09:31 91 22 28 06/21/17 09:00 108 32 155/86 98 Mechanical Ventilator 30 06/21/17 08:00 30 06/21/17 08:00 99.5 108 32 138/91 99 Mechanical Ventilator 35 06/21/17 08:00 108 06/21/17 07:00 108 27 128/85 97 Mechanical Ventilator 35 06/21/17 06:53 105 31 30 06/21/17 06:00 110 27 127/74 97 Mechanical Ventilator 35 06/21/17 05:00 100 27 128/74 97 Mechanical Ventilator 35 06/21/17 04:33 73 20 35 06/21/17 04:00 86 06/21/17 04:00 35 06/21/17 04:00 99.1 90 22 155/85 100 Mechanical Ventilator 35 06/21/17 03:05 76 20 35 06/21/17 03:00 83 23 162/84 100 Mechanical Ventilator 35 06/21/17 02:00 81 23 151/84 98 Mechanical Ventilator 35 06/21/17 01:29 84 24 35 06/21/17 01:00 83 25 147/78 98 Mechanical Ventilator 35 06/21/17 00:00 98.9 90 22 159/79 99 Mechanical Ventilator 35 06/20/17 23:00 89 25 148/76 99 Mechanical Ventilator 35 06/20/17 22:42 85 25 35 06/20/17 22:00 88 26 152/80 99 Mechanical Ventilator 35 06/20/17 21:00 89 24 155/81 99 Mechanical Ventilator 35 06/20/17 20:50 85 23 35 06/20/17 20:00 35 06/20/17 20:00 101 06/20/17 20:00 98.3 88 24 148/73 99 Mechanical Ventilator 45 06/20/17 19:48 83 25 35 06/20/17 19:00 84 27 149/77 100 Mechanical Ventilator 45 06/20/17 18:00 79 22 140/72 100 Mechanical Ventilator 45 06/20/17 17:07 84 24 45 06/20/17 17:00 86 24 139/75 100 Mechanical Ventilator 45 06/20/17 16:00 82 06/20/17 16:00 45 06/20/17 16:00 98.6 87 27 147/77 100 Mechanical Ventilator 45 06/20/17 15:00 84 30 148/90 100 Mechanical Ventilator 45 06/20/17 14:56 86 31 45 Intake and Output 06/20/17 06/21/17 19:00 07:00 Intake Total 1065.0 ml 1397.5 ml Output Total 545 ml 595 ml Balance 520.0 ml 802.5 ml Intake IV Total 1065.0 ml 1337.5 ml Other 60 ml Output Urine Total 545 ml 595 ml General Appearance: no acute distress HEENT: normocephalic Respiratory/Chest: chest wall non-tender, lungs clear Cardiovascular: normal peripheral pulses, normal rate Abdomen: normal bowel sounds Laboratory Tests 06/21/17 04:45: White Blood Count 10.1, Red Blood Count 3.15L, Hemoglobin 10.5L, Hematocrit 29.9L, Mean Corpuscular Volume 95, Mean Corpuscular Hemoglobin 33.4H, Mean Corpuscular Hemoglobin Concent 35.1, Red Cell Distribution Width 11.3L, Platelet Count 245, Mean Platelet Volume 7.0, Neutrophils (%) (Auto) 75.8H, Lymphocytes (%) (Auto) 6.0L, Monocytes (%) (Auto) 15.6H, Eosinophils (%) (Auto) 1.4, Basophils (%) (Auto) 1.3, Sodium Level 147H, Potassium Level 3.2L, Chloride Level 116H, Carbon Dioxide Level 17L, Anion Gap 14, Blood Urea Nitrogen 46H, Creatinine 2.9H, Estimat Glomerular Filtration Rate 31.1, Glucose Level 292#H, Calcium Level 8.4L, Total Bilirubin 0.3, Aspartate Amino Transf ( AST/SGOT) 163H, Alanine Aminotransferase (ALT/SGPT) 207H, Alkaline Phosphatase 87, Total Protein 5.3L, Albumin 1.5L, Globulin 3.8, Albumin/Globulin Ratio 0.4L , Amylase Level 550*H, Lipase 5377H Current Medications Medications (Trade) Dose Ordered Sig/Conrado Route PRN Reason Start Time Stop Time Status Last Admin Dose Admin Acetaminophen (Tylenol) 650 mg Q4H PRN ORAL Mild Pain/Temp > 100.5 06/16/17 17:45 07/16/17 13:44 06/18/17 00:42 Atropine Sulfate (Atropine 1mg/ml Inj) 0.5 mg EVERY HOUR PRN IVP HR<35 BPM 06/16/17 16:15 07/16/17 16:14 Clonidine HCl (Catapres) 0.1 mg Q2H PRN ORAL SBP Greater than 170 06/18/17 12:30 07/18/17 12:29 Dextrose (Dextrose 50%) STAT PRN IV Hypoglycemia 06/17/17 08:15 07/17/17 08:14 06/18/17 05:25 Insulin Aspart (NovoLOG) EVERY 4 HOURS SUBQ 06/17/17 09:00 07/17/17 08:59 06/21/17 12:39 Insulin Detemir (Levemir) 9 units Q12HR SUBQ 06/18/17 21:00 07/18/17 20:59 06/21/17 09:14 Lorazepam (Ativan 2mg/ml 1ml) 1 mg Q4H PRN IV For Anxiety 06/16/17 18:39 06/23/17 18:38 06/21/17 12:49 Morphine Sulfate (Morphine Sulfate) 2 mg Q4HR PRN IVP Moderate Pain (Pain Scale 4-6) 06/16/17 17:00 06/23/17 00:59 Ondansetron HCl (Zofran) 4 mg Q6H PRN IVP Nausea & Vomiting 06/16/17 19:00 07/16/17 00:59 Pantoprazole (Protonix) 40 mg ACBREAKFAST ORAL 06/19/17 06:30 07/17/17 08:59 06/21/17 06:18 Piperacillin Sod/ Tazobactam Sod 3.375 gm/Dextrose 110 ml @ 27.5 mls/hr Q8H IVPB 06/16/17 17:00 06/23/17 16:59 06/21/17 09:13 Potassium Chloride 40 meq/ Dextrose 1,020 ml @ 100 mls/hr [id number] IV 06/20/17 18:00 07/20/17 17:59 06/21/17 04:24 Paulo Floyd MD Jun 21, 2017 14:11
--- NOTE | 2017-06-21 15:11 | Cardiac Electrophysiology PN ---
Assessment/Plan Assessment/Plan 1. Troponin leak. Peak levels are flat and likely due to renal failure. The creatinine of 3.5. Echocardiogram EF60% 2. Tachycardia due to diabetic ketoacidosis and sepsis. 3. Respiratory failure on Vent 4. Pneumonia, on vancomycin and Zosyn per Dr. Cummings. 5. Pancreatitis. NPO. 6. Alcohol withdrawal. 7. Marijuana use. 8. Suspect diffuse cerebral anoxia and edema. Keep BP elevated per Dr Cano. DW RN Subjective Subjective In ICU on vent.No SVT or VT or yusuf.Off pressors.RN at present Objective Last 24 Hour Vital Signs Date Time Temp Pulse Resp B/P (MAP) Pulse Ox O2 Delivery O2 Flow Rate FiO2 06/21/17 13:16 90 21 28 06/21/17 12:00 92 06/21/17 12:00 99.2 106 28 159/83 100 Mechanical Ventilator 28 06/21/17 12:00 28 06/21/17 11:00 89 27 139/82 98 Mechanical Ventilator 30 06/21/17 10:43 94 28 28 06/21/17 10:00 91 25 131/74 97 Mechanical Ventilator 30 06/21/17 09:31 91 22 28 06/21/17 09:00 108 32 155/86 98 Mechanical Ventilator 30 06/21/17 08:00 30 06/21/17 08:00 99.5 108 32 138/91 99 Mechanical Ventilator 35 06/21/17 08:00 108 06/21/17 07:00 108 27 128/85 97 Mechanical Ventilator 35 06/21/17 06:53 105 31 30 06/21/17 06:00 110 27 127/74 97 Mechanical Ventilator 35 06/21/17 05:00 100 27 128/74 97 Mechanical Ventilator 35 06/21/17 04:33 73 20 35 06/21/17 04:00 86 06/21/17 04:00 35 06/21/17 04:00 99.1 90 22 155/85 100 Mechanical Ventilator 35 06/21/17 03:05 76 20 35 06/21/17 03:00 83 23 162/84 100 Mechanical Ventilator 35 06/21/17 02:00 81 23 151/84 98 Mechanical Ventilator 35 06/21/17 01:29 84 24 35 06/21/17 01:00 83 25 147/78 98 Mechanical Ventilator 35 06/21/17 00:00 98.9 90 22 159/79 99 Mechanical Ventilator 35 06/20/17 23:00 89 25 148/76 99 Mechanical Ventilator 35 06/20/17 22:42 85 25 35 06/20/17 22:00 88 26 152/80 99 Mechanical Ventilator 35 06/20/17 21:00 89 24 155/81 99 Mechanical Ventilator 35 06/20/17 20:50 85 23 35 06/20/17 20:00 35 06/20/17 20:00 101 06/20/17 20:00 98.3 88 24 148/73 99 Mechanical Ventilator 45 06/20/17 19:48 83 25 35 06/20/17 19:00 84 27 149/77 100 Mechanical Ventilator 45 06/20/17 18:00 79 22 140/72 100 Mechanical Ventilator 45 06/20/17 17:07 84 24 45 06/20/17 17:00 86 24 139/75 100 Mechanical Ventilator 45 06/20/17 16:00 82 06/20/17 16:00 45 06/20/17 16:00 98.6 87 27 147/77 100 Mechanical Ventilator 45 Intake and Output 06/20/17 06/21/17 19:00 07:00 Intake Total 1065.0 ml 1397.5 ml Output Total 545 ml 595 ml Balance 520.0 ml 802.5 ml Intake IV Total 1065.0 ml 1337.5 ml Other 60 ml Output Urine Total 545 ml 595 ml Laboratory Tests Test 06/21/17 04:45 White Blood Count 10.1 K/UL (4.8-10.8) Red Blood Count 3.15 M/UL (4.70-6.10) L Hemoglobin 10.5 G/DL (14.2-18.0) L Hematocrit 29.9 % (42.0-52.0) L Mean Corpuscular Volume 95 FL (80-99) Mean Corpuscular Hemoglobin 33.4 PG (27.0-31.0) H Mean Corpuscular Hemoglobin Concent 35.1 G/DL (32.0-36.0) Red Cell Distribution Width 11.3 % (11.6-14.8) L Platelet Count 245 K/UL (150-450) Mean Platelet Volume 7.0 FL (6.5-10.1) Neutrophils (%) (Auto) 75.8 % (45.0-75.0) H Lymphocytes (%) (Auto) 6.0 % (20.0-45.0) L Monocytes (%) (Auto) 15.6 % (1.0-10.0) H Eosinophils (%) (Auto) 1.4 % (0.0-3.0) Basophils (%) (Auto) 1.3 % (0.0-2.0) Sodium Level 147 MMOL/L (136-145) H Potassium Level 3.2 MMOL/L (3.5-5.1) L Chloride Level 116 MMOL/L (98-107) H Carbon Dioxide Level 17 MMOL/L (21-32) L Anion Gap 14 mmol/L (5-15) Blood Urea Nitrogen 46 mg/dL (7-18) H Creatinine 2.9 MG/DL (0.55-1.30) H Estimat Glomerular Filtration Rate 31.1 mL/min (>60) Glucose Level 292 MG/DL (74-106) #H Calcium Level 8.4 MG/DL (8.5-10.1) L Total Bilirubin 0.3 MG/DL (0.2-1.0) Aspartate Amino Transf (AST/SGOT) 163 U/L (15-37) H Alanine Aminotransferase (ALT/SGPT) 207 U/L (12-78) H Alkaline Phosphatase 87 U/L (46-116) Total Protein 5.3 G/DL (6.4-8.2) L Albumin 1.5 G/DL (3.4-5.0) L Globulin 3.8 g/dL Albumin/Globulin Ratio 0.4 (1.0-2.7) L Amylase Level 550 U/L (25-115) *H Lipase 5377 U/L (73-393) H Objective HEAD AND NECK: Showed no JVD.Orally intubated. OG tube in LUNGS: Clear. CARDIOVASCULAR: Tachy S1 and S2 with no gallop or murmur. ABDOMEN: Soft and nontender. EXTREMITIES: No pitting edema. ALBERT ROWAN Jun 21, 2017 15:11
--- NOTE | 2017-06-21 15:14 | Infectious Diseases Prog Note ---
Assessment/Plan Problems: (1) Pneumonia Assessment & Plan: suspect aspiration due to altered mental status , continue zosyn empiric coverage for now . repeat CXR for follow up .sputum culture was not collected (2) Sepsis Assessment & Plan: due to the above, blood culture is negative , continue zosyn empirically (3) Pancreatitis Assessment & Plan: suspect due to alchol abuse, monitor lipase, keep npo, GI is following (4) DKA (diabetic ketoacidosis) Assessment & Plan: improved, S/P insulin drip ,continue close monitor of blood glucose , avoid hypoglycemia . (5) Fever Assessment & Plan: resolved , suspect due to the above , continue tylenol empirically, monitor culture (6) Cardiopulmonary arrest Assessment & Plan: intubated on mechanical ventilation , monitor ABG, cardiology and pulmonary team are following (7) Anoxic cerebral edema Assessment & Plan: neurology is following , has poor prognosis Assessment/Plan D/W father at bedside . Subjective ROS Limited/Unobtainable: Yes Allergies: Coded Allergies: No Known Allergies (Unverified , 06/15/17) Subjective he is still intubated on mechanical ventilation , comfortable, not agitated , unresponsive today , but blinks spontaneously when calling his name, afebrile, no diarrhea or significant secretions . making good urine . Objective Vital Signs Last 24 Hour Vital Signs Date Time Temp Pulse Resp B/P (MAP) Pulse Ox O2 Delivery O2 Flow Rate FiO2 06/21/17 13:16 90 21 28 06/21/17 12:00 92 06/21/17 12:00 99.2 106 28 159/83 100 Mechanical Ventilator 28 06/21/17 12:00 28 06/21/17 11:00 89 27 139/82 98 Mechanical Ventilator 30 06/21/17 10:43 94 28 28 06/21/17 10:00 91 25 131/74 97 Mechanical Ventilator 30 06/21/17 09:31 91 22 28 06/21/17 09:00 108 32 155/86 98 Mechanical Ventilator 30 06/21/17 08:00 30 06/21/17 08:00 99.5 108 32 138/91 99 Mechanical Ventilator 35 06/21/17 08:00 108 06/21/17 07:00 108 27 128/85 97 Mechanical Ventilator 35 06/21/17 06:53 105 31 30 06/21/17 06:00 110 27 127/74 97 Mechanical Ventilator 35 06/21/17 05:00 100 27 128/74 97 Mechanical Ventilator 35 06/21/17 04:33 73 20 35 06/21/17 04:00 86 06/21/17 04:00 35 06/21/17 04:00 99.1 90 22 155/85 100 Mechanical Ventilator 35 06/21/17 03:05 76 20 35 06/21/17 03:00 83 23 162/84 100 Mechanical Ventilator 35 06/21/17 02:00 81 23 151/84 98 Mechanical Ventilator 35 06/21/17 01:29 84 24 35 06/21/17 01:00 83 25 147/78 98 Mechanical Ventilator 35 06/21/17 00:00 98.9 90 22 159/79 99 Mechanical Ventilator 35 06/20/17 23:00 89 25 148/76 99 Mechanical Ventilator 35 06/20/17 22:42 85 25 35 06/20/17 22:00 88 26 152/80 99 Mechanical Ventilator 35 06/20/17 21:00 89 24 155/81 99 Mechanical Ventilator 35 06/20/17 20:50 85 23 35 06/20/17 20:00 35 06/20/17 20:00 101 06/20/17 20:00 98.3 88 24 148/73 99 Mechanical Ventilator 45 06/20/17 19:48 83 25 35 06/20/17 19:00 84 27 149/77 100 Mechanical Ventilator 45 06/20/17 18:00 79 22 140/72 100 Mechanical Ventilator 45 06/20/17 17:07 84 24 45 06/20/17 17:00 86 24 139/75 100 Mechanical Ventilator 45 06/20/17 16:00 82 06/20/17 16:00 45 06/20/17 16:00 98.6 87 27 147/77 100 Mechanical Ventilator 45 Height (Feet): 5 Height (Inches): 7.00 Weight (Pounds): 115 General Appearance: WD/WN, no acute distress, cachetic HEENT: normocephalic, atraumatic, anicteric, mucous membranes moist, PERRL, supple, no JVD Respiratory/Chest: chest wall non-tender, normal breath sounds, no respiratory distress, no accessory muscle use, decreased breath sounds Cardiovascular: normal peripheral pulses, normal rate, regular rhythm, no gallop/murmur, no JVD Abdomen: normal bowel sounds, soft, non tender, no organomegaly, non distended , no mass, no scars Extremities: no cyanosis, no clubbing Skin: no rash, no lesions, no ulcers Neurologic/Psychiatric: unresponsiveness Lymphatic: no neck adenopathy, no groin adenopathy Laboratory Tests Test 06/21/17 04:45 White Blood Count 10.1 K/UL (4.8-10.8) Red Blood Count 3.15 M/UL (4.70-6.10) L Hemoglobin 10.5 G/DL (14.2-18.0) L Hematocrit 29.9 % (42.0-52.0) L Mean Corpuscular Volume 95 FL (80-99) Mean Corpuscular Hemoglobin 33.4 PG (27.0-31.0) H Mean Corpuscular Hemoglobin Concent 35.1 G/DL (32.0-36.0) Red Cell Distribution Width 11.3 % (11.6-14.8) L Platelet Count 245 K/UL (150-450) Mean Platelet Volume 7.0 FL (6.5-10.1) Neutrophils (%) (Auto) 75.8 % (45.0-75.0) H Lymphocytes (%) (Auto) 6.0 % (20.0-45.0) L Monocytes (%) (Auto) 15.6 % (1.0-10.0) H Eosinophils (%) (Auto) 1.4 % (0.0-3.0) Basophils (%) (Auto) 1.3 % (0.0-2.0) Sodium Level 147 MMOL/L (136-145) H Potassium Level 3.2 MMOL/L (3.5-5.1) L Chloride Level 116 MMOL/L (98-107) H Carbon Dioxide Level 17 MMOL/L (21-32) L Anion Gap 14 mmol/L (5-15) Blood Urea Nitrogen 46 mg/dL (7-18) H Creatinine 2.9 MG/DL (0.55-1.30) H Estimat Glomerular Filtration Rate 31.1 mL/min (>60) Glucose Level 292 MG/DL (74-106) #H Calcium Level 8.4 MG/DL (8.5-10.1) L Total Bilirubin 0.3 MG/DL (0.2-1.0) Aspartate Amino Transf (AST/SGOT) 163 U/L (15-37) H Alanine Aminotransferase (ALT/SGPT) 207 U/L (12-78) H Alkaline Phosphatase 87 U/L (46-116) Total Protein 5.3 G/DL (6.4-8.2) L Albumin 1.5 G/DL (3.4-5.0) L Globulin 3.8 g/dL Albumin/Globulin Ratio 0.4 (1.0-2.7) L Amylase Level 550 U/L (25-115) *H Lipase 5377 U/L (73-393) H Current Medications Medications (Trade) Dose Ordered Sig/Conrado Route PRN Reason Start Time Stop Time Status Last Admin Dose Admin Acetaminophen (Tylenol) 650 mg Q4H PRN ORAL Mild Pain/Temp > 100.5 06/16/17 17:45 07/16/17 13:44 06/18/17 00:42 Atropine Sulfate (Atropine 1mg/ml Inj) 0.5 mg EVERY HOUR PRN IVP HR<35 BPM 06/16/17 16:15 07/16/17 16:14 Clonidine HCl (Catapres) 0.1 mg Q2H PRN ORAL SBP Greater than 170 06/18/17 12:30 07/18/17 12:29 Dextrose (Dextrose 50%) STAT PRN IV Hypoglycemia 06/17/17 08:15 07/17/17 08:14 06/18/17 05:25 Insulin Aspart (NovoLOG) EVERY 4 HOURS SUBQ 06/17/17 09:00 07/17/17 08:59 06/21/17 12:39 Insulin Detemir (Levemir) 9 units Q12HR SUBQ 06/18/17 21:00 07/18/17 20:59 06/21/17 09:14 Lorazepam (Ativan 2mg/ml 1ml) 1 mg Q4H PRN IV For Anxiety 06/16/17 18:39 06/23/17 18:38 06/21/17 12:49 Morphine Sulfate (Morphine Sulfate) 2 mg Q4HR PRN IVP Moderate Pain (Pain Scale 4-6) 06/16/17 17:00 06/23/17 00:59 Ondansetron HCl (Zofran) 4 mg Q6H PRN IVP Nausea & Vomiting 06/16/17 19:00 07/16/17 00:59 Pantoprazole (Protonix) 40 mg ACBREAKFAST ORAL 06/19/17 06:30 07/17/17 08:59 06/21/17 06:18 Piperacillin Sod/ Tazobactam Sod 3.375 gm/Dextrose 110 ml @ 27.5 mls/hr Q8H IVPB 06/16/17 17:00 06/23/17 16:59 06/21/17 09:13 Potassium Chloride 40 meq/ Dextrose 1,020 ml @ 100 mls/hr [id number] IV 06/20/17 18:00 07/20/17 17:59 06/21/17 04:24 Saad Cummings M.D. Jun 21, 2017 15:14
--- NOTE | 2017-06-21 16:54 | GI Progress Note ---
Assessment/Plan Problems: (1) Shock liver ICD Codes: K72.00 - Acute and subacute hepatic failure without coma SNOMED: 276098084 (2) Anoxic cerebral edema ICD Codes: G93.6 - Cerebral edema; R09.02 - Hypoxemia SNOMED: 6534331, 152038393 (3) Transaminitis ICD Codes: R74.0 - Nonspecific elevation of levels of transaminase and lactic acid dehydrogenase [LDH] SNOMED: 821052872, 426928860 (4) Alcohol withdrawal ICD Codes: F10.239 - Alcohol dependence with withdrawal, unspecified SNOMED: 376917916 (5) Pancreatitis ICD Codes: K85.90 - Acute pancreatitis without necrosis or infection, unspecified SNOMED: 04957530 Status: unchanged Status Narrative Discussed with Dr. Rico. Assessment/Plan head CT reviewed >> Suspect diffuse cerebral anoxia and edema. utox positive marijuana macrocytic hyperchromic anemia OB stool positive defer GI procedures at this time, respiratory status not stable maintain NPO + IVFs at this time given DKA, elevated lipase and shocked liver DM mgmt electrolyte correction rising LFTs >> shocked liver follow lipase ppi BID hold iron supplementation given elevated ferritin monitor H&H, prn transfusions fu labs Subjective Subjective limited Objective Last 24 Hour Vital Signs Date Time Temp Pulse Resp B/P (MAP) Pulse Ox O2 Delivery O2 Flow Rate FiO2 06/21/17 16:00 93 25 146/80 99 Mechanical Ventilator 28 06/21/17 15:28 90 23 28 06/21/17 15:00 93 24 135/85 99 Mechanical Ventilator 28 06/21/17 14:00 86 21 125/70 99 Mechanical Ventilator 28 06/21/17 13:16 90 21 28 06/21/17 13:00 94 24 128/72 97 Mechanical Ventilator 28 06/21/17 12:00 92 06/21/17 12:00 99.2 106 28 159/83 100 Mechanical Ventilator 28 06/21/17 12:00 28 06/21/17 11:00 89 27 139/82 98 Mechanical Ventilator 30 06/21/17 10:43 94 28 28 06/21/17 10:00 91 25 131/74 97 Mechanical Ventilator 30 06/21/17 09:31 91 22 28 06/21/17 09:00 108 32 155/86 98 Mechanical Ventilator 30 06/21/17 08:00 30 06/21/17 08:00 99.5 108 32 138/91 99 Mechanical Ventilator 35 06/21/17 08:00 108 06/21/17 07:00 108 27 128/85 97 Mechanical Ventilator 35 06/21/17 06:53 105 31 30 06/21/17 06:00 110 27 127/74 97 Mechanical Ventilator 35 06/21/17 05:00 100 27 128/74 97 Mechanical Ventilator 35 06/21/17 04:33 73 20 35 06/21/17 04:00 86 06/21/17 04:00 35 06/21/17 04:00 99.1 90 22 155/85 100 Mechanical Ventilator 35 06/21/17 03:05 76 20 35 06/21/17 03:00 83 23 162/84 100 Mechanical Ventilator 35 06/21/17 02:00 81 23 151/84 98 Mechanical Ventilator 35 06/21/17 01:29 84 24 35 06/21/17 01:00 83 25 147/78 98 Mechanical Ventilator 35 06/21/17 00:00 98.9 90 22 159/79 99 Mechanical Ventilator 35 06/20/17 23:00 89 25 148/76 99 Mechanical Ventilator 35 06/20/17 22:42 85 25 35 06/20/17 22:00 88 26 152/80 99 Mechanical Ventilator 35 06/20/17 21:00 89 24 155/81 99 Mechanical Ventilator 35 06/20/17 20:50 85 23 35 06/20/17 20:00 35 06/20/17 20:00 101 06/20/17 20:00 98.3 88 24 148/73 99 Mechanical Ventilator 45 06/20/17 19:48 83 25 35 06/20/17 19:00 84 27 149/77 100 Mechanical Ventilator 45 06/20/17 18:00 79 22 140/72 100 Mechanical Ventilator 45 06/20/17 17:07 84 24 45 06/20/17 17:00 86 24 139/75 100 Mechanical Ventilator 45 Intake and Output 06/20/17 06/21/17 19:00 07:00 Intake Total 1065.0 ml 1397.5 ml Output Total 545 ml 595 ml Balance 520.0 ml 802.5 ml Intake IV Total 1065.0 ml 1337.5 ml Other 60 ml Output Urine Total 545 ml 595 ml Laboratory Tests Test 06/21/17 04:45 White Blood Count 10.1 K/UL (4.8-10.8) Red Blood Count 3.15 M/UL (4.70-6.10) L Hemoglobin 10.5 G/DL (14.2-18.0) L Hematocrit 29.9 % (42.0-52.0) L Mean Corpuscular Volume 95 FL (80-99) Mean Corpuscular Hemoglobin 33.4 PG (27.0-31.0) H Mean Corpuscular Hemoglobin Concent 35.1 G/DL (32.0-36.0) Red Cell Distribution Width 11.3 % (11.6-14.8) L Platelet Count 245 K/UL (150-450) Mean Platelet Volume 7.0 FL (6.5-10.1) Neutrophils (%) (Auto) 75.8 % (45.0-75.0) H Lymphocytes (%) (Auto) 6.0 % (20.0-45.0) L Monocytes (%) (Auto) 15.6 % (1.0-10.0) H Eosinophils (%) (Auto) 1.4 % (0.0-3.0) Basophils (%) (Auto) 1.3 % (0.0-2.0) Sodium Level 147 MMOL/L (136-145) H Potassium Level 3.2 MMOL/L (3.5-5.1) L Chloride Level 116 MMOL/L (98-107) H Carbon Dioxide Level 17 MMOL/L (21-32) L Anion Gap 14 mmol/L (5-15) Blood Urea Nitrogen 46 mg/dL (7-18) H Creatinine 2.9 MG/DL (0.55-1.30) H Estimat Glomerular Filtration Rate 31.1 mL/min (>60) Glucose Level 292 MG/DL (74-106) #H Calcium Level 8.4 MG/DL (8.5-10.1) L Total Bilirubin 0.3 MG/DL (0.2-1.0) Aspartate Amino Transf (AST/SGOT) 163 U/L (15-37) H Alanine Aminotransferase (ALT/SGPT) 207 U/L (12-78) H Alkaline Phosphatase 87 U/L (46-116) Total Protein 5.3 G/DL (6.4-8.2) L Albumin 1.5 G/DL (3.4-5.0) L Globulin 3.8 g/dL Albumin/Globulin Ratio 0.4 (1.0-2.7) L Amylase Level 550 U/L (25-115) *H Lipase 5377 U/L (73-393) H Height (Feet): 5 Height (Inches): 7.00 Weight (Pounds): 115 General Appearance: lethargic, thin Cardiovascular: normal rate Respiratory/Chest: other - mech vent Abdominal Exam: soft Lashawn Mason N.P. Jun 21, 2017 16:54
--- NOTE | 2017-06-21 22:26 | Nephrology Progress Note ---
Assessment/Plan Problem List: (1) Hyponatremia (2) Sepsis (3) Alcohol withdrawal (4) Pneumonia (5) Cardiopulmonary arrest (6) Metabolic acidosis (7) DKA (diabetic ketoacidosis) (8) Transaminitis (9) Hypokalemia (10) Hypernatremia (11) Anoxic encephalopathy syndrome (12) Anoxic cerebral edema (13) Shock liver (14) Fever (15) Respiratory distress (16) Pancreatitis (17) Elevated troponin Plan vent settings per pulm abx per ID. cardio and neuro following. d/w RN. monitor labs. Subjective Subjective remains intubated. in ICU. Objective Objective Last 24 Hour Vital Signs Date Time Temp Pulse Resp B/P (MAP) Pulse Ox O2 Delivery O2 Flow Rate FiO2 06/21/17 21:12 94 31 28 06/21/17 20:00 28 06/21/17 19:30 112 31 Mechanical Ventilator 28 06/21/17 19:30 97 31 28 06/21/17 18:00 83 22 129/69 100 Mechanical Ventilator 28 06/21/17 17:27 91 24 28 06/21/17 17:00 99.3 87 30 158/88 99 Mechanical Ventilator 28 06/21/17 16:00 93 25 146/80 99 Mechanical Ventilator 28 06/21/17 16:00 28 06/21/17 16:00 89 06/21/17 15:28 90 23 28 06/21/17 15:00 93 24 135/85 99 Mechanical Ventilator 28 06/21/17 14:00 86 21 125/70 99 Mechanical Ventilator 28 06/21/17 13:16 90 21 28 06/21/17 13:00 94 24 128/72 97 Mechanical Ventilator 28 06/21/17 12:00 92 06/21/17 12:00 99.2 106 28 159/83 100 Mechanical Ventilator 28 06/21/17 12:00 28 06/21/17 11:00 89 27 139/82 98 Mechanical Ventilator 30 06/21/17 10:43 94 28 28 06/21/17 10:00 91 25 131/74 97 Mechanical Ventilator 30 06/21/17 09:31 91 22 28 06/21/17 09:00 108 32 155/86 98 Mechanical Ventilator 30 06/21/17 08:00 30 06/21/17 08:00 99.5 108 32 138/91 99 Mechanical Ventilator 35 06/21/17 08:00 108 06/21/17 07:00 108 27 128/85 97 Mechanical Ventilator 35 06/21/17 06:53 105 31 30 06/21/17 06:00 110 27 127/74 97 Mechanical Ventilator 35 06/21/17 05:00 100 27 128/74 97 Mechanical Ventilator 35 06/21/17 04:33 73 20 35 06/21/17 04:00 86 06/21/17 04:00 35 06/21/17 04:00 99.1 90 22 155/85 100 Mechanical Ventilator 35 06/21/17 03:05 76 20 35 06/21/17 03:00 83 23 162/84 100 Mechanical Ventilator 35 06/21/17 02:00 81 23 151/84 98 Mechanical Ventilator 35 06/21/17 01:29 84 24 35 06/21/17 01:00 83 25 147/78 98 Mechanical Ventilator 35 06/21/17 00:00 98.9 90 22 159/79 99 Mechanical Ventilator 35 06/20/17 23:00 89 25 148/76 99 Mechanical Ventilator 35 06/20/17 22:42 85 25 35 Intake and Output 06/20/17 06/21/17 19:00 07:00 Intake Total 1065.0 ml 1397.5 ml Output Total 545 ml 595 ml Balance 520.0 ml 802.5 ml Intake IV Total 1065.0 ml 1337.5 ml Other 60 ml Output Urine Total 545 ml 595 ml Laboratory Tests 06/21/17 04:45: White Blood Count 10.1, Red Blood Count 3.15L, Hemoglobin 10.5L, Hematocrit 29.9L, Mean Corpuscular Volume 95, Mean Corpuscular Hemoglobin 33.4H, Mean Corpuscular Hemoglobin Concent 35.1, Red Cell Distribution Width 11.3L, Platelet Count 245, Mean Platelet Volume 7.0, Neutrophils (%) (Auto) 75.8H, Lymphocytes (%) (Auto) 6.0L, Monocytes (%) (Auto) 15.6H, Eosinophils (%) (Auto) 1.4, Basophils (%) (Auto) 1.3, Sodium Level 147H, Potassium Level 3.2L, Chloride Level 116H, Carbon Dioxide Level 17L, Anion Gap 14, Blood Urea Nitrogen 46H, Creatinine 2.9H, Estimat Glomerular Filtration Rate 31.1, Glucose Level 292#H, Calcium Level 8.4L, Total Bilirubin 0.3, Aspartate Amino Transf ( AST/SGOT) 163H, Alanine Aminotransferase (ALT/SGPT) 207H, Alkaline Phosphatase 87, Total Protein 5.3L, Albumin 1.5L, Globulin 3.8, Albumin/Globulin Ratio 0.4L , Amylase Level 550*H, Lipase 5377H Height (Feet): 5 Height (Inches): 7.00 Weight (Pounds): 115 General Appearance: no apparent distress Cardiovascular: normal rate, regular rhythm Respiratory/Chest: lungs clear Abdomen: non tender, soft REMIGIO KNOX Jun 21, 2017 22:26
[2017-06-22] VITALS (25 sets, daily range): BP systolic 138–188; BP diastolic 71–100
[2017-06-22] MEDS: Piperacillin/Tazobactam 3.375 GM in D5W 110 ML IVPB SCH ×3 (01:21→16:51)
[2017-06-22] MEDS: NovoLOG Insulin Flexpen SUBQ SCH ×6 (01:24→21:17)
[2017-06-22 05:32] LABS: BASOPHILS % (AUTO) 1.3 % (0.0-2.0); EOSINOPHILS % (AUTO) 1.6 % (0.0-3.0); HEMATOCRIT 29.5 % (42.0-52.0); LYMPHOCYTES % (AUTO) 7.4 % (20.0-45.0); MEAN CORPUSCULAR VOLUME 95 FL (80-99); MONOCYTES % (AUTO) 12.9 % (1.0-10.0); NEUTROPHILS % (AUTO) 76.9 % (45.0-75.0); PLATELET COUNT 370 K/UL (150-450); RED BLOOD COUNT 3.11 M/UL (4.70-6.10); RED CELL DISTRIBUTION WIDTH 11.4 % (11.6-14.8)
[2017-06-22 06:37] LABS: ALANINE AMINOTRANSFERASE 175 U/L (12-78); ALBUMIN 1.6 G/DL (3.4-5.0); ALBUMIN/GLOBULIN RATIO 0.4 (1.0-2.7); ALKALINE PHOSPHATASE 84 U/L (46-116); ANION GAP 12 mmol/L (5-15); ASPARTATE AMINO TRANSFERASE 142 U/L (15-37); BILIRUBIN,TOTAL 0.3 MG/DL (0.2-1.0); BLOOD UREA NITROGEN 41 mg/dL (7-18); CALCIUM 8.6 MG/DL (8.5-10.1); CARBON DIOXIDE 19 MMOL/L (21-32); CHLORIDE 115 MMOL/L (98-107); CREATININE 2.7 MG/DL (0.55-1.30); POTASSIUM 3.2 MMOL/L (3.5-5.1); SODIUM 145 MMOL/L (136-145)
[2017-06-22] MEDS: Levemir Flexpen SUBQ SCH ×2 (09:00→21:16)
--- NOTE | 2017-06-22 11:47 | Neurology Progress Note ---
Interim History Interim History ROS Limited/Unobtainable: Yes Complaints: coma Events: unchanged, no sz activity, overbreathing vent Objective Physical Exam Last Vital Signs Date Time Temp Pulse Resp B/P (MAP) Pulse Ox O2 Delivery O2 Flow Rate FiO2 06/22/17 10:34 84 22 28 06/22/17 10:00 164/84 100 Mechanical Ventilator 06/22/17 08:00 98.2 Laboratory Tests Test 06/22/17 04:40 White Blood Count 13.0 K/UL (4.8-10.8) H Red Blood Count 3.11 M/UL (4.70-6.10) L Hemoglobin 11.0 G/DL (14.2-18.0) L Hematocrit 29.5 % (42.0-52.0) L Mean Corpuscular Volume 95 FL (80-99) Mean Corpuscular Hemoglobin 35.2 PG (27.0-31.0) H Mean Corpuscular Hemoglobin Concent 37.2 G/DL (32.0-36.0) H Red Cell Distribution Width 11.4 % (11.6-14.8) L Platelet Count 370 K/UL (150-450) # Mean Platelet Volume 6.8 FL (6.5-10.1) Neutrophils (%) (Auto) 76.9 % (45.0-75.0) H Lymphocytes (%) (Auto) 7.4 % (20.0-45.0) L Monocytes (%) (Auto) 12.9 % (1.0-10.0) H Eosinophils (%) (Auto) 1.6 % (0.0-3.0) Basophils (%) (Auto) 1.3 % (0.0-2.0) Sodium Level 145 MMOL/L (136-145) Potassium Level 3.2 MMOL/L (3.5-5.1) L Chloride Level 115 MMOL/L (98-107) H Carbon Dioxide Level 19 MMOL/L (21-32) L Anion Gap 12 mmol/L (5-15) Blood Urea Nitrogen 41 mg/dL (7-18) H Creatinine 2.7 MG/DL (0.55-1.30) H Estimat Glomerular Filtration Rate 33.8 mL/min (>60) Glucose Level 238 MG/DL (74-106) H Calcium Level 8.6 MG/DL (8.5-10.1) Total Bilirubin 0.3 MG/DL (0.2-1.0) Aspartate Amino Transf (AST/SGOT) 142 U/L (15-37) H Alanine Aminotransferase (ALT/SGPT) 175 U/L (12-78) H Alkaline Phosphatase 84 U/L (46-116) Total Protein 5.5 G/DL (6.4-8.2) L Albumin 1.6 G/DL (3.4-5.0) L Globulin 3.9 g/dL Albumin/Globulin Ratio 0.4 (1.0-2.7) L Lipase 4755 U/L (73-393) H General: other - cachectic, intubated,not overbreathing vent Head: normocophalic, atraumatic Neck: no rigidity EENT: benign Neurologic Exam Mental Status: other - coma Speech: other Language: other Cranial Nerve II: no papilledema, other Cranial Nerves III, IV, : pupils - 4mmsluggish Cranial Nerve V: other - no corneal Cranial Nerve VII: other Cranial Nerve VIII: no nystagmus Cranial Nerve IX: other - no gag Cranial Nerve XI: other Cranial Nerve XII: no tongue atrophy/fasciculations Motor System: other - diffuse rigidity Sensory: other Coordination: other Deep Tendon Reflexes: 0 bicep (L), 0 bicep (R), 0 tricep (L), 0 tricep (R), 0 brachioradialis (L), 0 brachioradialis (R), 0 knee (L), 0 knee (R), 0 ankle (L) , 0 ankle (R) Reflexes: mute plantar (L), mute plantar (R) Stance: other Gait: other Impression/Recommendations Problems: (1) Anoxic encephalopathy syndrome (2) Anoxic cerebral edema (3) DKA (diabetic ketoacidosis) (4) Cardiopulmonary arrest (5) Respiratory distress (6) Acidosis Status: unchanged Recommendations #[id number] hyperventilation ordered d/w staff cooling blanket EEG c/w severe encephalopathy d/w family x 15min re prognosis,status BAKARIBLAINE Jun 22, 2017 11:47
--- NOTE | 2017-06-22 11:58 | Pulmonology Progress Note ---
Assessment/Plan Assessment/Plan IMPRESSION: 1. Respiratory failure 2. Cannabis usage. 3. Diabetic ketoacidosis. 4. Troponin leak. 5. Tachycardia. 6. AMS; suspect anoxic brain injury DISCUSSION: Agree with present management and care. The patient is at this time on vancomycin, insulin, thiamine, normal saline, and Zosyn, which I will all continue. I will begin weaning once the patient is more stable and awake. continue vent settings to AC of 20, tidal volume 550, FiO2 80%. Ammonia is normal Reviewed neurology notes Continue vent/ AC mode Subjective Interval Events: no changes repored. Remains intubated on a respirator. Unresponsive. Constitutional: Reports: no symptoms HEENT: Repors: no symptoms Respiratory: Reports: no symptoms Cardiovascular: Reports: no symptoms Gastrointestinal/Abdominal: Reports: no symptoms Allergies: Coded Allergies: No Known Allergies (Unverified , 06/15/17) Objective Last 24 Hour Vital Signs Date Time Temp Pulse Resp B/P (MAP) Pulse Ox O2 Delivery O2 Flow Rate FiO2 06/22/17 10:34 84 22 28 06/22/17 10:00 76 20 164/84 100 Mechanical Ventilator 28 06/22/17 09:00 92 17 164/84 100 Mechanical Ventilator 28 06/22/17 08:54 96 20 28 06/22/17 08:00 98.2 82 24 152/81 100 Mechanical Ventilator 28 06/22/17 08:00 28 06/22/17 07:11 94 26 28 06/22/17 07:00 98.0 84 24 158/90 100 Mechanical Ventilator 28 06/22/17 06:00 82 24 138/71 100 Mechanical Ventilator 28 06/22/17 05:12 79 23 28 06/22/17 05:00 79 22 156/82 100 Mechanical Ventilator 28 06/22/17 04:00 98.0 82 23 148/77 100 Mechanical Ventilator 28 06/22/17 04:00 92 06/22/17 04:00 28 06/22/17 03:10 82 22 28 06/22/17 03:00 84 23 146/77 100 Mechanical Ventilator 28 06/22/17 02:00 88 25 147/81 100 Mechanical Ventilator 28 06/22/17 01:11 85 26 28 06/22/17 01:00 85 24 151/75 100 Mechanical Ventilator 28 06/22/17 00:00 98.3 87 25 151/83 100 Mechanical Ventilator 28 06/22/17 00:00 91 06/21/17 23:08 89 27 28 06/21/17 23:00 89 25 161/75 100 Mechanical Ventilator 28 06/21/17 22:00 92 28 156/79 100 Mechanical Ventilator 28 06/21/17 21:12 94 31 28 06/21/17 21:00 91 27 161/78 100 Mechanical Ventilator 28 06/21/17 20:00 90 06/21/17 20:00 28 06/21/17 20:00 98.5 91 29 157/78 99 Mechanical Ventilator 28 06/21/17 19:30 112 31 Mechanical Ventilator 28 06/21/17 19:30 97 31 28 06/21/17 19:00 94 29 143/72 99 Mechanical Ventilator 28 06/21/17 18:00 83 22 129/69 100 Mechanical Ventilator 28 06/21/17 17:27 91 24 28 06/21/17 17:00 99.3 87 30 158/88 99 Mechanical Ventilator 28 06/21/17 16:00 93 25 146/80 99 Mechanical Ventilator 28 06/21/17 16:00 28 06/21/17 16:00 89 06/21/17 15:28 90 23 28 06/21/17 15:00 93 24 135/85 99 Mechanical Ventilator 28 06/21/17 14:00 86 21 125/70 99 Mechanical Ventilator 28 06/21/17 13:16 90 21 28 06/21/17 13:00 94 24 128/72 97 Mechanical Ventilator 28 06/21/17 12:00 92 06/21/17 12:00 99.2 106 28 159/83 100 Mechanical Ventilator 28 06/21/17 12:00 28 Intake and Output 06/21/17 06/22/17 19:00 07:00 Intake Total 1385.25 ml 1205.0 ml Output Total 920 ml 635 ml Balance 465.25 ml 570.0 ml Intake IV Total 1365.25 ml 1155.0 ml Other 20 ml 50 ml Output Urine Total 920 ml 635 ml # Bowel Movements 4 General Appearance: no acute distress HEENT: normocephalic Respiratory/Chest: chest wall non-tender, lungs clear Cardiovascular: normal peripheral pulses, normal rate Abdomen: normal bowel sounds, soft, non tender Laboratory Tests 06/22/17 04:40: White Blood Count 13.0H, Red Blood Count 3.11L, Hemoglobin 11.0L, Hematocrit 29.5L, Mean Corpuscular Volume 95, Mean Corpuscular Hemoglobin 35.2H, Mean Corpuscular Hemoglobin Concent 37.2H, Red Cell Distribution Width 11.4L, Platelet Count 370#, Mean Platelet Volume 6.8, Neutrophils (%) (Auto) 76.9H, Lymphocytes (%) (Auto) 7.4L, Monocytes (%) (Auto) 12.9H, Eosinophils (%) (Auto) 1.6, Basophils (%) (Auto) 1.3, Sodium Level 145, Potassium Level 3.2L, Chloride Level 115H, Carbon Dioxide Level 19L, Anion Gap 12, Blood Urea Nitrogen 41H, Creatinine 2.7H, Estimat Glomerular Filtration Rate 33.8, Glucose Level 238H, Calcium Level 8.6, Total Bilirubin 0.3, Aspartate Amino Transf (AST/SGOT) 142H, Alanine Aminotransferase (ALT/SGPT) 175H, Alkaline Phosphatase 84, Total Protein 5.5L, Albumin 1.6L, Globulin 3.9, Albumin/Globulin Ratio 0.4L, Lipase 4755H Current Medications Medications (Trade) Dose Ordered Sig/Conrado Route PRN Reason Start Time Stop Time Status Last Admin Dose Admin Acetaminophen (Tylenol) 650 mg Q4H PRN ORAL Mild Pain/Temp > 100.5 06/16/17 17:45 07/16/17 13:44 06/18/17 00:42 Atropine Sulfate (Atropine 1mg/ml Inj) 0.5 mg EVERY HOUR PRN IVP HR<35 BPM 06/16/17 16:15 07/16/17 16:14 Clonidine HCl (Catapres) 0.1 mg Q2H PRN ORAL SBP Greater than 170 06/18/17 12:30 07/18/17 12:29 Dextrose (Dextrose 50%) STAT PRN IV Hypoglycemia 06/17/17 08:15 07/17/17 08:14 06/18/17 05:25 Insulin Aspart (NovoLOG) EVERY 4 HOURS SUBQ 06/17/17 09:00 07/17/17 08:59 06/22/17 10:00 Insulin Detemir (Levemir) 9 units Q12HR SUBQ 06/18/17 21:00 07/18/17 20:59 06/22/17 09:00 Lansoprazole (Prevacid) 30 mg DAILY NG 06/22/17 09:00 07/22/17 08:59 06/22/17 09:00 Lorazepam (Ativan 2mg/ml 1ml) 1 mg Q4H PRN IV For Anxiety 06/16/17 18:39 06/23/17 18:38 06/21/17 12:49 Morphine Sulfate (Morphine Sulfate) 2 mg Q4HR PRN IVP Moderate Pain (Pain Scale 4-6) 06/16/17 17:00 06/23/17 00:59 Ondansetron HCl (Zofran) 4 mg Q6H PRN IVP Nausea & Vomiting 06/16/17 19:00 07/16/17 00:59 Piperacillin Sod/ Tazobactam Sod 3.375 gm/Dextrose 110 ml @ 27.5 mls/hr Q8H IVPB 06/16/17 17:00 06/23/17 16:59 06/22/17 09:49 Potassium Chloride 40 meq/ Dextrose 1,020 ml @ 100 mls/hr [id number] IV 06/20/17 18:00 07/20/17 17:59 06/22/17 00:47 Paulo Floyd MD Jun 22, 2017 11:58
--- NOTE | 2017-06-22 13:51 | Cardiac Electrophysiology PN ---
Assessment/Plan Assessment/Plan 1. Troponin leak. Peak levels are flat and likely due to renal failure. The creatinine of 3.5. Echocardiogram EF60% 2. Tachycardia due to diabetic ketoacidosis and sepsis. 3. Respiratory failure on Vent 4. Pneumonia, on vancomycin and Zosyn per Dr. Cummings. 5. Pancreatitis. NPO on ivf 6. ARF Cr 3.5 to 2.7 7. Marijuana use. 8. Suspect diffuse cerebral anoxia and edema. Keep BP elevated per Dr Cano. 9. Full Code. 10. Alcohol withdrawal. DW RN Subjective Subjective In ICU on vent.No arrhythmias. Unresponsive. Off pressors. RN at present Objective Last 24 Hour Vital Signs Date Time Temp Pulse Resp B/P (MAP) Pulse Ox O2 Delivery O2 Flow Rate FiO2 06/22/17 13:12 88 21 28 06/22/17 13:00 81 23 159/81 100 Mechanical Ventilator 28 06/22/17 13:00 94 23 159/81 100 Mechanical Ventilator 23 06/22/17 12:00 102 06/22/17 12:00 28 06/22/17 12:00 99.2 94 23 178/93 100 Mechanical Ventilator 23 06/22/17 12:00 98.2 94 23 178/93 100 Mechanical Ventilator 28 06/22/17 11:00 92 20 157/81 100 Mechanical Ventilator 25 06/22/17 11:00 92 25 157/81 100 Mechanical Ventilator 28 06/22/17 10:34 84 22 28 06/22/17 10:00 76 20 164/84 100 Mechanical Ventilator 28 06/22/17 09:00 92 17 164/84 100 Mechanical Ventilator 28 06/22/17 08:54 96 20 28 06/22/17 08:00 98.2 82 24 152/81 100 Mechanical Ventilator 28 06/22/17 08:00 94 06/22/17 08:00 28 06/22/17 07:11 94 26 28 06/22/17 07:00 98.0 84 24 158/90 100 Mechanical Ventilator 28 06/22/17 06:00 82 24 138/71 100 Mechanical Ventilator 28 06/22/17 05:12 79 23 28 06/22/17 05:00 79 22 156/82 100 Mechanical Ventilator 28 06/22/17 04:00 98.0 82 23 148/77 100 Mechanical Ventilator 28 06/22/17 04:00 92 06/22/17 04:00 28 06/22/17 03:10 82 22 28 06/22/17 03:00 84 23 146/77 100 Mechanical Ventilator 28 06/22/17 02:00 88 25 147/81 100 Mechanical Ventilator 28 06/22/17 01:11 85 26 28 06/22/17 01:00 85 24 151/75 100 Mechanical Ventilator 28 06/22/17 00:00 98.3 87 25 151/83 100 Mechanical Ventilator 28 06/22/17 00:00 91 06/21/17 23:08 89 27 28 06/21/17 23:00 89 25 161/75 100 Mechanical Ventilator 28 06/21/17 22:00 92 28 156/79 100 Mechanical Ventilator 28 06/21/17 21:12 94 31 28 06/21/17 21:00 91 27 161/78 100 Mechanical Ventilator 28 06/21/17 20:00 90 06/21/17 20:00 28 06/21/17 20:00 98.5 91 29 157/78 99 Mechanical Ventilator 28 06/21/17 19:30 112 31 Mechanical Ventilator 28 06/21/17 19:30 97 31 28 06/21/17 19:00 94 29 143/72 99 Mechanical Ventilator 28 06/21/17 18:00 83 22 129/69 100 Mechanical Ventilator 28 06/21/17 17:27 91 24 28 06/21/17 17:00 99.3 87 30 158/88 99 Mechanical Ventilator 28 06/21/17 16:00 93 25 146/80 99 Mechanical Ventilator 28 06/21/17 16:00 28 06/21/17 16:00 89 06/21/17 15:28 90 23 28 06/21/17 15:00 93 24 135/85 99 Mechanical Ventilator 28 06/21/17 14:00 86 21 125/70 99 Mechanical Ventilator 28 Intake and Output 06/21/17 06/22/17 19:00 07:00 Intake Total 1385.25 ml 1205.0 ml Output Total 920 ml 635 ml Balance 465.25 ml 570.0 ml Intake IV Total 1365.25 ml 1155.0 ml Other 20 ml 50 ml Output Urine Total 920 ml 635 ml # Bowel Movements 4 Laboratory Tests Test 06/22/17 04:40 White Blood Count 13.0 K/UL (4.8-10.8) H Red Blood Count 3.11 M/UL (4.70-6.10) L Hemoglobin 11.0 G/DL (14.2-18.0) L Hematocrit 29.5 % (42.0-52.0) L Mean Corpuscular Volume 95 FL (80-99) Mean Corpuscular Hemoglobin 35.2 PG (27.0-31.0) H Mean Corpuscular Hemoglobin Concent 37.2 G/DL (32.0-36.0) H Red Cell Distribution Width 11.4 % (11.6-14.8) L Platelet Count 370 K/UL (150-450) # Mean Platelet Volume 6.8 FL (6.5-10.1) Neutrophils (%) (Auto) 76.9 % (45.0-75.0) H Lymphocytes (%) (Auto) 7.4 % (20.0-45.0) L Monocytes (%) (Auto) 12.9 % (1.0-10.0) H Eosinophils (%) (Auto) 1.6 % (0.0-3.0) Basophils (%) (Auto) 1.3 % (0.0-2.0) Sodium Level 145 MMOL/L (136-145) Potassium Level 3.2 MMOL/L (3.5-5.1) L Chloride Level 115 MMOL/L (98-107) H Carbon Dioxide Level 19 MMOL/L (21-32) L Anion Gap 12 mmol/L (5-15) Blood Urea Nitrogen 41 mg/dL (7-18) H Creatinine 2.7 MG/DL (0.55-1.30) H Estimat Glomerular Filtration Rate 33.8 mL/min (>60) Glucose Level 238 MG/DL (74-106) H Calcium Level 8.6 MG/DL (8.5-10.1) Total Bilirubin 0.3 MG/DL (0.2-1.0) Aspartate Amino Transf (AST/SGOT) 142 U/L (15-37) H Alanine Aminotransferase (ALT/SGPT) 175 U/L (12-78) H Alkaline Phosphatase 84 U/L (46-116) Total Protein 5.5 G/DL (6.4-8.2) L Albumin 1.6 G/DL (3.4-5.0) L Globulin 3.9 g/dL Albumin/Globulin Ratio 0.4 (1.0-2.7) L Lipase 4755 U/L (73-393) H Objective HEAD AND NECK: Showed no JVD.Orally intubated. OG tube in LUNGS: Clear. CARDIOVASCULAR: Tachy S1 and S2 with no gallop or murmur. ABDOMEN: Soft and nontender. EXTREMITIES: No pitting edema. ALBERT ROWAN Jun 22, 2017 13:51
--- NOTE | 2017-06-22 14:48 | Diagnostic Imaging Report ---
Indication: Respiratory failure Technique: XRAY Chest 1v Comparison: 06/18/2017 Findings-impression: ET tube is been retracted to above the level of the clavicles. Advancement by 2 cm is recommended. This was discussed with the ICU charge nurse via telephone conversation 14:40 06/22/2017 . NG tube has been advanced, tip in the distal stomach. Persistent residual opacification/edema with slight improvement compared to the prior exam. No pneumothorax.
--- NOTE | 2017-06-22 15:27 | Infectious Diseases Prog Note ---
Assessment/Plan Problems: (1) Pneumonia Assessment & Plan: suspect aspiration due to altered mental status , continue zosyn empiric coverage , and add clindamycin for MRSA coverage since his WBC went up . will repeat CXR for follow up .sputum culture was not collected , will order new sputum culture (2) Sepsis Assessment & Plan: due to the above, blood culture is negative , continue zosyn empirically (3) Pancreatitis Assessment & Plan: suspect due to alchol abuse, monitor lipase, keep npo, GI is following (4) DKA (diabetic ketoacidosis) Assessment & Plan: improved, S/P insulin drip ,continue close monitor of blood glucose , avoid hypoglycemia . (5) Fever Assessment & Plan: resolved , suspect due to the above , continue tylenol empirically, monitor culture (6) Cardiopulmonary arrest Assessment & Plan: intubated on mechanical ventilation , monitor ABG, cardiology and pulmonary team are following (7) Anoxic cerebral edema Assessment & Plan: with no improvement, neurology is following , has poor prognosis , may need tracheostomy Subjective ROS Limited/Unobtainable: Yes Allergies: Coded Allergies: No Known Allergies (Unverified , 06/15/17) Subjective he is still intubated on mechanical ventilation , comfortable, not agitated , unresponsive , blinks spontaneously when calling his name, afebrile, no diarrhea or significant secretions . making good urine . Objective Vital Signs Last 24 Hour Vital Signs Date Time Temp Pulse Resp B/P (MAP) Pulse Ox O2 Delivery O2 Flow Rate FiO2 06/22/17 15:00 97.7 64 20 143/74 100 Mechanical Ventilator 23 06/22/17 14:58 72 21 28 06/22/17 14:00 99.0 94 28 188/86 100 Mechanical Ventilator 23 06/22/17 13:12 88 21 28 06/22/17 13:00 81 23 159/81 100 Mechanical Ventilator 28 06/22/17 13:00 94 23 159/81 100 Mechanical Ventilator 23 06/22/17 12:00 102 06/22/17 12:00 28 06/22/17 12:00 99.2 94 23 178/93 100 Mechanical Ventilator 23 06/22/17 12:00 98.2 94 23 178/93 100 Mechanical Ventilator 28 06/22/17 11:00 92 20 157/81 100 Mechanical Ventilator 25 06/22/17 11:00 92 25 157/81 100 Mechanical Ventilator 28 06/22/17 10:34 84 22 28 06/22/17 10:00 76 20 164/84 100 Mechanical Ventilator 28 06/22/17 09:00 92 17 164/84 100 Mechanical Ventilator 28 06/22/17 08:54 96 20 28 06/22/17 08:00 98.2 82 24 152/81 100 Mechanical Ventilator 28 06/22/17 08:00 94 06/22/17 08:00 28 06/22/17 07:11 94 26 28 06/22/17 07:00 98.0 84 24 158/90 100 Mechanical Ventilator 28 06/22/17 06:00 82 24 138/71 100 Mechanical Ventilator 28 06/22/17 05:12 79 23 28 06/22/17 05:00 79 22 156/82 100 Mechanical Ventilator 28 06/22/17 04:00 98.0 82 23 148/77 100 Mechanical Ventilator 28 06/22/17 04:00 92 06/22/17 04:00 28 06/22/17 03:10 82 22 28 06/22/17 03:00 84 23 146/77 100 Mechanical Ventilator 28 06/22/17 02:00 88 25 147/81 100 Mechanical Ventilator 28 06/22/17 01:11 85 26 28 06/22/17 01:00 85 24 151/75 100 Mechanical Ventilator 28 06/22/17 00:00 98.3 87 25 151/83 100 Mechanical Ventilator 28 06/22/17 00:00 91 06/21/17 23:08 89 27 28 06/21/17 23:00 89 25 161/75 100 Mechanical Ventilator 28 06/21/17 22:00 92 28 156/79 100 Mechanical Ventilator 28 06/21/17 21:12 94 31 28 06/21/17 21:00 91 27 161/78 100 Mechanical Ventilator 28 06/21/17 20:00 90 06/21/17 20:00 28 06/21/17 20:00 98.5 91 29 157/78 99 Mechanical Ventilator 28 06/21/17 19:30 112 31 Mechanical Ventilator 28 06/21/17 19:30 97 31 28 06/21/17 19:00 94 29 143/72 99 Mechanical Ventilator 28 06/21/17 18:00 83 22 129/69 100 Mechanical Ventilator 28 06/21/17 17:27 91 24 28 1/11/18 17:00 99.3 87 30 158/88 99 Mechanical Ventilator 28 06/21/17 16:00 93 25 146/80 99 Mechanical Ventilator 28 06/21/17 16:00 28 06/21/17 16:00 89 06/21/17 15:28 90 23 28 Height (Feet): 5 Height (Inches): 7.00 Weight (Pounds): 116 General Appearance: WD/WN, no acute distress HEENT: normocephalic, atraumatic, anicteric, mucous membranes moist, PERRL, supple, no JVD Respiratory/Chest: chest wall non-tender, lungs clear, no respiratory distress , no accessory muscle use, decreased breath sounds, crackles/rales Cardiovascular: normal peripheral pulses, normal rate, regular rhythm, no gallop/murmur, no JVD Abdomen: normal bowel sounds, soft, non tender, no organomegaly, non distended , no mass, no scars Extremities: no cyanosis, no clubbing Skin: no rash, no lesions, no ulcers Neurologic/Psychiatric: unresponsiveness Laboratory Tests Test 06/22/17 04:40 White Blood Count 13.0 K/UL (4.8-10.8) H Red Blood Count 3.11 M/UL (4.70-6.10) L Hemoglobin 11.0 G/DL (14.2-18.0) L Hematocrit 29.5 % (42.0-52.0) L Mean Corpuscular Volume 95 FL (80-99) Mean Corpuscular Hemoglobin 35.2 PG (27.0-31.0) H Mean Corpuscular Hemoglobin Concent 37.2 G/DL (32.0-36.0) H Red Cell Distribution Width 11.4 % (11.6-14.8) L Platelet Count 370 K/UL (150-450) # Mean Platelet Volume 6.8 FL (6.5-10.1) Neutrophils (%) (Auto) 76.9 % (45.0-75.0) H Lymphocytes (%) (Auto) 7.4 % (20.0-45.0) L Monocytes (%) (Auto) 12.9 % (1.0-10.0) H Eosinophils (%) (Auto) 1.6 % (0.0-3.0) Basophils (%) (Auto) 1.3 % (0.0-2.0) Sodium Level 145 MMOL/L (136-145) Potassium Level 3.2 MMOL/L (3.5-5.1) L Chloride Level 115 MMOL/L (98-107) H Carbon Dioxide Level 19 MMOL/L (21-32) L Anion Gap 12 mmol/L (5-15) Blood Urea Nitrogen 41 mg/dL (7-18) H Creatinine 2.7 MG/DL (0.55-1.30) H Estimat Glomerular Filtration Rate 33.8 mL/min (>60) Glucose Level 238 MG/DL (74-106) H Calcium Level 8.6 MG/DL (8.5-10.1) Total Bilirubin 0.3 MG/DL (0.2-1.0) Aspartate Amino Transf (AST/SGOT) 142 U/L (15-37) H Alanine Aminotransferase (ALT/SGPT) 175 U/L (12-78) H Alkaline Phosphatase 84 U/L (46-116) Total Protein 5.5 G/DL (6.4-8.2) L Albumin 1.6 G/DL (3.4-5.0) L Globulin 3.9 g/dL Albumin/Globulin Ratio 0.4 (1.0-2.7) L Lipase 4755 U/L (73-393) H Current Medications Medications (Trade) Dose Ordered Sig/Conrado Route PRN Reason Start Time Stop Time Status Last Admin Dose Admin Acetaminophen (Tylenol) 650 mg Q4H PRN ORAL Mild Pain/Temp > 100.5 06/16/17 17:45 07/16/17 13:44 06/18/17 00:42 Atropine Sulfate (Atropine 1mg/ml Inj) 0.5 mg EVERY HOUR PRN IVP HR<35 BPM 06/16/17 16:15 07/16/17 16:14 Clindamycin HCl/ Dextrose 50 ml @ 100 mls/hr Q8HR IV 06/22/17 16:00 06/29/17 15:59 Clonidine HCl (Catapres) 0.1 mg Q2H PRN ORAL SBP Greater than 170 06/18/17 12:30 07/18/17 12:29 Dextrose (Dextrose 50%) STAT PRN IV Hypoglycemia 06/17/17 08:15 07/17/17 08:14 06/18/17 05:25 Insulin Aspart (NovoLOG) EVERY 4 HOURS SUBQ 06/17/17 09:00 07/17/17 08:59 06/22/17 13:00 Insulin Detemir (Levemir) 9 units Q12HR SUBQ 06/18/17 21:00 07/18/17 20:59 06/22/17 09:00 Lansoprazole (Prevacid) 30 mg DAILY NG 06/22/17 09:00 07/22/17 08:59 06/22/17 09:00 Lorazepam (Ativan 2mg/ml 1ml) 1 mg Q4H PRN IV For Anxiety 06/16/17 18:39 06/23/17 18:38 06/21/17 12:49 Morphine Sulfate (Morphine Sulfate) 2 mg Q4HR PRN IVP Moderate Pain (Pain Scale 4-6) 06/16/17 17:00 06/23/17 00:59 06/22/17 14:08 Ondansetron HCl (Zofran) 4 mg Q6H PRN IVP Nausea & Vomiting 06/16/17 19:00 07/16/17 00:59 Piperacillin Sod/ Tazobactam Sod 3.375 gm/Dextrose 110 ml @ 27.5 mls/hr Q8H IVPB 06/16/17 17:00 06/23/17 16:59 06/22/17 09:49 Potassium Chloride 40 meq/ Dextrose 1,020 ml @ 100 mls/hr [id number] IV 06/20/17 18:00 07/20/17 17:59 06/22/17 12:32 Saad Cummings M.D. Jun 22, 2017 15:27
--- NOTE | 2017-06-22 16:12 | Nephrology Progress Note ---
Assessment/Plan Problem List: (1) Hypernatremia (2) Hypokalemia (3) Fever (4) Acidosis (5) Respiratory distress (6) Pancreatitis (7) Elevated troponin (8) Alcohol withdrawal (9) Pneumonia (10) Sepsis (11) Cardiopulmonary arrest (12) Metabolic acidosis (13) DKA (diabetic ketoacidosis) Plan Continue current IVF Continue vent Strict glycemic control BP control Monitor lytes, correct prn Monitor neuro status, neurology following Monitor renal function Avoid nephrotoxins Monitor for withdrawal symptoms Abx per ID F/U with consults recs AM labs Subjective ROS Limited/Unobtainable: Yes Subjective Seen in the ICU, orally intubated on vent settings, non responsive at this time , adequate urine output noted via carpenter Objective Objective Last 24 Hour Vital Signs Date Time Temp Pulse Resp B/P (MAP) Pulse Ox O2 Delivery O2 Flow Rate FiO2 06/22/17 15:00 97.7 64 20 143/74 100 Mechanical Ventilator 23 06/22/17 14:58 72 21 28 06/22/17 14:00 99.0 94 28 188/86 100 Mechanical Ventilator 23 06/22/17 13:12 88 21 28 06/22/17 13:00 81 23 159/81 100 Mechanical Ventilator 28 06/22/17 13:00 94 23 159/81 100 Mechanical Ventilator 23 06/22/17 12:00 102 06/22/17 12:00 28 06/22/17 12:00 99.2 94 23 178/93 100 Mechanical Ventilator 23 06/22/17 12:00 98.2 94 23 178/93 100 Mechanical Ventilator 28 06/22/17 11:00 92 20 157/81 100 Mechanical Ventilator 25 06/22/17 11:00 92 25 157/81 100 Mechanical Ventilator 28 06/22/17 10:34 84 22 28 06/22/17 10:00 76 20 164/84 100 Mechanical Ventilator 28 06/22/17 09:00 92 17 164/84 100 Mechanical Ventilator 28 06/22/17 08:54 96 20 28 06/22/17 08:00 98.2 82 24 152/81 100 Mechanical Ventilator 28 06/22/17 08:00 94 06/22/17 08:00 28 06/22/17 07:11 94 26 28 06/22/17 07:00 98.0 84 24 158/90 100 Mechanical Ventilator 28 06/22/17 06:00 82 24 138/71 100 Mechanical Ventilator 28 06/22/17 05:12 79 23 28 06/22/17 05:00 79 22 156/82 100 Mechanical Ventilator 28 06/22/17 04:00 98.0 82 23 148/77 100 Mechanical Ventilator 28 06/22/17 04:00 92 06/22/17 04:00 28 06/22/17 03:10 82 22 28 06/22/17 03:00 84 23 146/77 100 Mechanical Ventilator 28 06/22/17 02:00 88 25 147/81 100 Mechanical Ventilator 28 06/22/17 01:11 85 26 28 06/22/17 01:00 85 24 151/75 100 Mechanical Ventilator 28 06/22/17 00:00 98.3 87 25 151/83 100 Mechanical Ventilator 28 06/22/17 00:00 91 06/21/17 23:08 89 27 28 06/21/17 23:00 89 25 161/75 100 Mechanical Ventilator 28 06/21/17 22:00 92 28 156/79 100 Mechanical Ventilator 28 06/21/17 21:12 94 31 28 06/21/17 21:00 91 27 161/78 100 Mechanical Ventilator 28 06/21/17 20:00 90 06/21/17 20:00 28 06/21/17 20:00 98.5 91 29 157/78 99 Mechanical Ventilator 28 06/21/17 19:30 112 31 Mechanical Ventilator 28 06/21/17 19:30 97 31 28 06/21/17 19:00 94 29 143/72 99 Mechanical Ventilator 28 06/21/17 18:00 83 22 129/69 100 Mechanical Ventilator 28 06/21/17 17:27 91 24 28 06/21/17 17:00 99.3 87 30 158/88 99 Mechanical Ventilator 28 Intake and Output 06/21/17 06/22/17 19:00 07:00 Intake Total 1385.25 ml 1205.0 ml Output Total 920 ml 635 ml Balance 465.25 ml 570.0 ml Intake IV Total 1365.25 ml 1155.0 ml Other 20 ml 50 ml Output Urine Total 920 ml 635 ml # Bowel Movements 4 Laboratory Tests 06/22/17 04:40: White Blood Count 13.0H, Red Blood Count 3.11L, Hemoglobin 11.0L, Hematocrit 29.5L, Mean Corpuscular Volume 95, Mean Corpuscular Hemoglobin 35.2H, Mean Corpuscular Hemoglobin Concent 37.2H, Red Cell Distribution Width 11.4L, Platelet Count 370#, Mean Platelet Volume 6.8, Neutrophils (%) (Auto) 76.9H, Lymphocytes (%) (Auto) 7.4L, Monocytes (%) (Auto) 12.9H, Eosinophils (%) (Auto) 1.6, Basophils (%) (Auto) 1.3, Sodium Level 145, Potassium Level 3.2L, Chloride Level 115H, Carbon Dioxide Level 19L, Anion Gap 12, Blood Urea Nitrogen 41H, Creatinine 2.7H, Estimat Glomerular Filtration Rate 33.8, Glucose Level 238H, Calcium Level 8.6, Total Bilirubin 0.3, Aspartate Amino Transf (AST/SGOT) 142H, Alanine Aminotransferase (ALT/SGPT) 175H, Alkaline Phosphatase 84, Total Protein 5.5L, Albumin 1.6L, Globulin 3.9, Albumin/Globulin Ratio 0.4L, Lipase 4755H Height (Feet): 5 Height (Inches): 7.00 Weight (Pounds): 116 General Appearance: no apparent distress, other - unresponsive EENT: normal ENT inspection Neck: normal alignment, supple Cardiovascular: no JVD Respiratory/Chest: decreased breath sounds, other - orally intubated Abdomen: soft Genitourinary/Rectal: other - carpenter Neurologic: unresponsive Hannah Johnson N.P. Jun 22, 2017 16:12
[2017-06-22] MEDS: Clindamycin 600mg 50 ML IV SCH (16:50)
--- NOTE | 2017-06-22 17:31 | Electroencephalogram ---
DATE OF PROCEDURE: 06/19/2017 ELECTROENCEPHALOGRAPHY REPORT REQUESTING PHYSICIAN: Gopi Matson M.D. HISTORY: This is a 32-year-old man status post full arrest, now presenting with unresponsiveness. EEG was requested to evaluate cortical activities, rule out seizure activity. EEG was done using 18 electrodes placed scalp to scalp, scalp to ear montages according to 10/[employer] System. The patient described as being comatose. Throughout the recording, the patient remained unresponsive with no spontaneous activities detected, background consists of a poorly organized low voltage, mixture of 2-4 cycles per second activities bilaterally. Most of the recording was obscured by severe sweating artifact. There was no clear evidence of paroxysmal old epileptiform discharges noted. IMPRESSION: Technically poor study indicating presence of severe diffuse slowing, predominantly delta range. COMMENT: Due to significant amount of recording was obscured by sweating artifact and only small portions of recording were identifiable for background. There is no evidence of seizure activity noted. There is no evidence of significant asymmetry or paroxysmal activities. Timoteo Cano M.D. DR: Kelly JOB#: [id number] CC:
[2017-06-23] VITALS (23 sets, daily range): BP systolic 108–157; BP diastolic 56–97
[2017-06-23] MEDS: Clindamycin 600mg 50 ML IV SCH ×4 (00:21→22:04)
[2017-06-23] MEDS: NovoLOG Insulin Flexpen SUBQ SCH ×6 (00:45→20:57)
[2017-06-23] MEDS: Piperacillin/Tazobactam 3.375 GM in D5W 110 ML IVPB SCH ×3 (00:46→17:27)
[2017-06-23 06:33] LABS: ALANINE AMINOTRANSFERASE 154 U/L (12-78); ALBUMIN 1.7 G/DL (3.4-5.0); ALBUMIN/GLOBULIN RATIO 0.4 (1.0-2.7); ALKALINE PHOSPHATASE 87 U/L (46-116); ANION GAP 11 mmol/L (5-15); ASPARTATE AMINO TRANSFERASE 131 U/L (15-37); BILIRUBIN,TOTAL 0.2 MG/DL (0.2-1.0); BLOOD UREA NITROGEN 30 mg/dL (7-18); CALCIUM 8.8 MG/DL (8.5-10.1); CARBON DIOXIDE 19 MMOL/L (21-32); CHLORIDE 110 MMOL/L (98-107); CREATININE 2.4 MG/DL (0.55-1.30); POTASSIUM 3.6 MMOL/L (3.5-5.1); SODIUM 140 MMOL/L (136-145)
[2017-06-23] MEDS: Levemir Flexpen SUBQ SCH ×2 (08:53→20:57)
--- NOTE | 2017-06-23 13:51 | Infectious Diseases Prog Note ---
Assessment/Plan Problems: (1) Pneumonia Assessment & Plan: suspect aspiration due to altered mental status , continue zosyn and clindamycin empiric coverage , repeated CXR showed persistent opacification .sputum culture is pending . (2) Sepsis Assessment & Plan: due to the above, blood culture is negative , continue zosyn and clindamycin empirically (3) Pancreatitis Assessment & Plan: suspect due to alcohol abuse, monitor lipase, continue tube feeding , GI is following (4) DKA (diabetic ketoacidosis) Assessment & Plan: improved, S/P insulin drip ,continue close monitor of blood glucose , avoid hypoglycemia . (5) Fever Assessment & Plan: resolved , suspect due to the above , continue tylenol empirically, monitor culture (6) Cardiopulmonary arrest Assessment & Plan: intubated on mechanical ventilation , monitor ABG, cardiology and pulmonary team are following (7) Anoxic cerebral edema Assessment & Plan: with no improvement, neurology is following , has poor prognosis , may need tracheostomy, and PEG tube placement Subjective ROS Limited/Unobtainable: Yes Allergies: Coded Allergies: No Known Allergies (Unverified , 06/15/17) Subjective he is still intubated on mechanical ventilation , comfortable, unresponsive , blinks spontaneously and when I tried to open his eyes , afebrile, no diarrhea or significant secretions . making good urine . Objective Vital Signs Last 24 Hour Vital Signs Date Time Temp Pulse Resp B/P (MAP) Pulse Ox O2 Delivery O2 Flow Rate FiO2 06/23/17 13:00 98.4 88 20 125/67 100 Mechanical Ventilator 06/23/17 12:48 69 22 28 06/23/17 12:00 28 06/23/17 12:00 66 06/23/17 11:00 70 20 111/68 100 Mechanical Ventilator 28 06/23/17 10:47 65 20 28 06/23/17 10:38 68 20 109/64 100 Mechanical Ventilator 28 06/23/17 10:00 79 19 109/64 100 Mechanical Ventilator 28 06/23/17 09:12 101 22 28 06/23/17 09:00 79 19 109/64 100 Mechanical Ventilator 28 06/23/17 08:00 98.6 66 22 108/69 100 Mechanical Ventilator 28 06/23/17 08:00 66 06/23/17 08:00 28 06/23/17 07:51 62 20 28 06/23/17 06:00 89 22 150/77 100 Mechanical Ventilator 28 06/23/17 05:18 95 20 28 06/23/17 05:00 87 22 147/77 100 Mechanical Ventilator 28 06/23/17 04:00 90 06/23/17 04:00 100.4 82 22 148/77 100 Mechanical Ventilator 28 06/23/17 04:00 28 06/23/17 03:09 86 20 28 06/23/17 03:00 83 22 130/75 100 Mechanical Ventilator 28 06/23/17 02:00 83 21 124/82 100 Mechanical Ventilator 28 06/23/17 01:12 81 21 28 06/23/17 01:00 84 21 133/89 100 Mechanical Ventilator 28 06/23/17 00:00 28 06/23/17 00:00 98.8 82 20 144/72 100 Mechanical Ventilator 28 06/22/17 23:09 72 20 28 06/22/17 23:00 74 20 144/72 100 Mechanical Ventilator 28 06/22/17 22:00 67 20 144/77 100 Mechanical Ventilator 28 06/22/17 21:03 69 21 28 06/22/17 21:00 67 20 154/79 100 Mechanical Ventilator 28 06/22/17 20:54 175/88 06/22/17 20:30 73 20 153/81 100 Mechanical Ventilator 28 06/22/17 20:00 85 06/22/17 20:00 28 06/22/17 20:00 99.2 74 20 168/100 100 Mechanical Ventilator 28 06/22/17 19:00 73 25 152/84 100 Mechanical Ventilator 23 06/22/17 18:54 81 20 28 06/22/17 18:00 85 25 171/83 100 Mechanical Ventilator 23 06/22/17 17:27 88 21 28 06/22/17 17:00 97.7 64 20 163/83 100 Mechanical Ventilator 23 06/22/17 16:00 64 20 147/81 100 Mechanical Ventilator 23 06/22/17 16:00 67 06/22/17 16:00 28 06/22/17 15:00 97.7 64 20 143/74 100 Mechanical Ventilator 23 06/22/17 14:58 72 21 28 06/22/17 14:00 99.0 94 28 188/86 100 Mechanical Ventilator 23 Height (Feet): 5 Height (Inches): 7.00 Weight (Pounds): 114 General Appearance: WD/WN, no acute distress HEENT: normocephalic, atraumatic, anicteric, mucous membranes moist, PERRL, supple, no JVD Respiratory/Chest: chest wall non-tender, no respiratory distress, no accessory muscle use, decreased breath sounds Cardiovascular: normal peripheral pulses, normal rate, regular rhythm, no gallop/murmur, no JVD Abdomen: normal bowel sounds, soft, non tender, no organomegaly, non distended , no mass, no scars Extremities: no cyanosis, no clubbing Skin: no rash, no lesions, no ulcers Neurologic/Psychiatric: alert Lymphatic: no neck adenopathy, no groin adenopathy Microbiology Date/Time Source Procedure Growth Status 06/22/17 14:50 Sputum Expectorated Gram Stain - Final Resulted 06/22/17 14:50 Sputum Expectorated Sputum Culture - Preliminary Resulted Laboratory Tests Test 06/23/17 04:50 Sodium Level 140 MMOL/L (136-145) Potassium Level 3.6 MMOL/L (3.5-5.1) Chloride Level 110 MMOL/L (98-107) H Carbon Dioxide Level 19 MMOL/L (21-32) L Anion Gap 11 mmol/L (5-15) Blood Urea Nitrogen 30 mg/dL (7-18) H Creatinine 2.4 MG/DL (0.55-1.30) H Estimat Glomerular Filtration Rate 38.7 mL/min (>60) Glucose Level 256 MG/DL (74-106) H Calcium Level 8.8 MG/DL (8.5-10.1) Total Bilirubin 0.2 MG/DL (0.2-1.0) Aspartate Amino Transf (AST/SGOT) 131 U/L (15-37) H Alanine Aminotransferase (ALT/SGPT) 154 U/L (12-78) H Alkaline Phosphatase 87 U/L (46-116) Total Protein 6.0 G/DL (6.4-8.2) L Albumin 1.7 G/DL (3.4-5.0) L Globulin 4.3 g/dL Albumin/Globulin Ratio 0.4 (1.0-2.7) L Lipase 2764 U/L (73-393) H Current Medications Medications (Trade) Dose Ordered Sig/Conrado Route PRN Reason Start Time Stop Time Status Last Admin Dose Admin Acetaminophen (Tylenol) 650 mg Q4H PRN ORAL Mild Pain/Temp > 100.5 06/16/17 17:45 07/16/17 13:44 06/18/17 00:42 Atropine Sulfate (Atropine 1mg/ml Inj) 0.5 mg EVERY HOUR PRN IVP HR<35 BPM 06/16/17 16:15 07/16/17 16:14 Clindamycin HCl/ Dextrose 50 ml @ 100 mls/hr Q8HR IV 06/22/17 16:00 06/29/17 15:59 06/23/17 05:41 Clonidine HCl (Catapres Tab) 0.1 mg Q2H PRN ORAL SBP Greater than 170 06/18/17 12:30 07/18/17 12:29 06/22/17 20:54 Dextrose (Dextrose 50%) STAT PRN IV Hypoglycemia 06/17/17 08:15 07/17/17 08:14 06/18/17 05:25 Insulin Aspart (NovoLOG) EVERY 4 HOURS SUBQ 06/17/17 09:00 07/17/17 08:59 06/23/17 13:45 Insulin Detemir (Levemir) 9 units Q12HR SUBQ 06/18/17 21:00 07/18/17 20:59 06/23/17 08:53 Lansoprazole (Prevacid) 30 mg DAILY NG 06/22/17 09:00 07/22/17 08:59 06/23/17 08:51 Ondansetron HCl (Zofran) 4 mg Q6H PRN IVP Nausea & Vomiting 06/16/17 19:00 07/16/17 00:59 Piperacillin Sod/ Tazobactam Sod 3.375 gm/Dextrose 110 ml @ 27.5 mls/hr Q8H IVPB 06/16/17 17:00 06/29/17 16:59 06/23/17 08:51 Potassium Chloride 40 meq/ Dextrose 1,020 ml @ 100 mls/hr [id number] IV 06/20/17 18:00 07/20/17 17:59 06/23/17 11:39 Saad Cummings M.D. Jun 23, 2017 13:51
--- NOTE | 2017-06-23 14:41 | General Progress Note ---
Assessment/Plan Assessment/Plan Assessment/Plan Problems: (1) Shock liver ICD Codes: K72.00 - Acute and subacute hepatic failure without coma SNOMED: 710112622 (2) Anoxic cerebral edema ICD Codes: G93.6 - Cerebral edema; R09.02 - Hypoxemia SNOMED: 7784563, 612496338 (3) Transaminitis ICD Codes: R74.0 - Nonspecific elevation of levels of transaminase and lactic acid dehydrogenase [LDH] SNOMED: 078666843, 066190746 (4) Alcohol withdrawal ICD Codes: F10.239 - Alcohol dependence with withdrawal, unspecified SNOMED: 546333673 (5) Pancreatitis ICD Codes: K85.90 - Acute pancreatitis without necrosis or infection, unspecified SNOMED: 00124711 Status: unchanged Assessment/Plan head CT reviewed >> Suspect diffuse cerebral anoxia and edema. utox positive marijuana macrocytic hyperchromic anemia OB stool positive defer GI procedures at this time, respiratory status not stable maintain NPO + IVFs at this time given DKA, elevated lipase and shocked liver DM mgmt electrolyte correction rising LFTs >> shocked liver follow lipase ppi BID hold iron supplementation given elevated ferritin monitor H&H, prn transfusions fu labs advance TF Subjective Allergies: Coded Allergies: No Known Allergies (Unverified , 06/15/17) Subjective seen in ICU family at bedside tolerating TF at 30 non communicative Objective Last 24 Hour Vital Signs Date Time Temp Pulse Resp B/P (MAP) Pulse Ox O2 Delivery O2 Flow Rate FiO2 06/23/17 13:00 98.4 88 20 125/67 100 Mechanical Ventilator 06/23/17 12:48 69 22 28 06/23/17 12:00 28 06/23/17 12:00 66 06/23/17 11:00 70 20 111/68 100 Mechanical Ventilator 28 06/23/17 10:47 65 20 28 06/23/17 10:38 68 20 109/64 100 Mechanical Ventilator 28 06/23/17 10:00 79 19 109/64 100 Mechanical Ventilator 06/23/17 09:12 101 22 28 06/23/17 09:00 79 19 109/64 100 Mechanical Ventilator 28 06/23/17 08:00 98.6 66 22 108/69 100 Mechanical Ventilator 06/23/17 08:00 66 06/23/17 08:00 28 06/23/17 07:51 62 20 28 06/23/17 06:00 89 22 150/77 100 Mechanical Ventilator 28 06/23/17 05:18 95 20 28 06/23/17 05:00 87 22 147/77 100 Mechanical Ventilator 28 06/23/17 04:00 90 06/23/17 04:00 100.4 82 22 148/77 100 Mechanical Ventilator 28 06/23/17 04:00 28 06/23/17 03:09 86 20 28 06/23/17 03:00 83 22 130/75 100 Mechanical Ventilator 28 06/23/17 02:00 83 21 124/82 100 Mechanical Ventilator 28 06/23/17 01:12 81 21 28 06/23/17 01:00 84 21 133/89 100 Mechanical Ventilator 28 06/23/17 00:00 28 06/23/17 00:00 98.8 82 20 144/72 100 Mechanical Ventilator 28 06/22/17 23:09 72 20 28 06/22/17 23:00 74 20 144/72 100 Mechanical Ventilator 28 06/22/17 22:00 67 20 144/77 100 Mechanical Ventilator 28 06/22/17 21:03 69 21 28 06/22/17 21:00 67 20 154/79 100 Mechanical Ventilator 28 06/22/17 20:54 175/88 06/22/17 20:30 73 20 153/81 100 Mechanical Ventilator 28 06/22/17 20:00 85 06/22/17 20:00 28 06/22/17 20:00 99.2 74 20 168/100 100 Mechanical Ventilator 28 06/22/17 19:00 73 25 152/84 100 Mechanical Ventilator 23 06/22/17 18:54 81 20 28 06/22/17 18:00 85 25 171/83 100 Mechanical Ventilator 23 06/22/17 17:27 88 21 28 06/22/17 17:00 97.7 64 20 163/83 100 Mechanical Ventilator 23 06/22/17 16:00 64 20 147/81 100 Mechanical Ventilator 23 06/22/17 16:00 67 06/22/17 16:00 28 06/22/17 15:00 97.7 64 20 143/74 100 Mechanical Ventilator 23 06/22/17 14:58 72 21 28 Intake and Output 06/22/17 06/23/17 19:00 07:00 Intake Total 750 ml 1430 ml Output Total 1090 ml 1250 ml Balance -340 ml 180 ml Intake Free Water 30 ml IV Total 700 ml 1250 ml Tube Feeding 150 ml Other 50 ml Output Urine Total 1090 ml 1250 ml # Bowel Movements 2 2 Laboratory Tests 06/23/17 04:50: Sodium Level 140, Potassium Level 3.6, Chloride Level 110H, Carbon Dioxide Level 19L, Anion Gap 11, Blood Urea Nitrogen 30H, Creatinine 2.4H, Estimat Glomerular Filtration Rate 38.7, Glucose Level 256H, Calcium Level 8.8, Total Bilirubin 0.2, Aspartate Amino Transf (AST/SGOT) 131H, Alanine Aminotransferase (ALT/SGPT) 154H, Alkaline Phosphatase 87, Total Protein 6.0L, Albumin 1.7L, Globulin 4.3, Albumin/Globulin Ratio 0.4L, Lipase 2764H Height (Feet): 5 Height (Inches): 7.00 Weight (Pounds): 114 Objective Thin AA man NCAT supple CTA RR soft NT ND no edema DARIELA NAVA Jun 23, 2017 14:41
[2017-06-23] MEDS ORDERED: Tubing IV Secondary IV ONE (15:24)
--- NOTE | 2017-06-23 15:59 | Cardiology Report ---
APPROVED REPORT EKG Measurement Heart [id number] PA [id number] [id number] Normal sinus rhythm ST elevation, consider early repolarization, pericarditis, or injury Abnormal ECG
[2017-06-23 16:07] LABS: HEMATOCRIT 31.4 % (42.0-52.0); HEMOGLOBIN 10.7 G/DL (14.2-18.0); MEAN CORPUSCULAR VOLUME 95 FL (80-99); PLATELET COUNT 453 K/UL (150-450); RED BLOOD COUNT 3.31 M/UL (4.70-6.10); RED CELL DISTRIBUTION WIDTH 11.3 % (11.6-14.8); WHITE BLOOD COUNT 18.8 K/UL (4.8-10.8)
[2017-06-23 16:10] LABS: BASOPHILS % (AUTO) 0.8 % (0.0-2.0); LYMPHOCYTES % (AUTO) 6.6 % (20.0-45.0); MONOCYTES % (AUTO) 8.6 % (1.0-10.0); NEUTROPHILS % (AUTO) 82.9 % (45.0-75.0)
[2017-06-23 16:34] LABS: ALANINE AMINOTRANSFERASE 146 U/L (12-78); ALBUMIN 1.7 G/DL (3.4-5.0); ALBUMIN/GLOBULIN RATIO 0.4 (1.0-2.7); ALKALINE PHOSPHATASE 85 U/L (46-116); ANION GAP 12 mmol/L (5-15); ASPARTATE AMINO TRANSFERASE 105 U/L (15-37); BILIRUBIN,TOTAL 0.2 MG/DL (0.2-1.0); BLOOD UREA NITROGEN 29 mg/dL (7-18); CALCIUM 8.9 MG/DL (8.5-10.1); CARBON DIOXIDE 19 MMOL/L (21-32); CHLORIDE 108 MMOL/L (98-107); CREATININE 2.4 MG/DL (0.55-1.30); POTASSIUM 3.7 MMOL/L (3.5-5.1); SODIUM 139 MMOL/L (136-145)
--- NOTE | 2017-06-23 17:13 | Cardiac Electrophysiology PN ---
Assessment/Plan Assessment/Plan 1. Troponin leak. Levels are flat and likely due to renal failure. The creatinine of 3.5. Echocardiogram EF60% 2. Tachycardia due to diabetic ketoacidosis and sepsis. 3. Respiratory failure on Vent 4. Pneumonia, on vancomycin and Zosyn per Dr. Cummings. 5. Pancreatitis. NPO on ivf 6. ARF Cr 3.5 to 2.7 7. Marijuana use. 8. Suspect diffuse cerebral anoxia and edema. Keep BP elevated per Dr Cano. 9. Alcohol withdrawal. DW RN Father is considering withdrawing life support. Subjective Subjective In ICU on vent.No arrhythmias. Unresponsive off pressors. He blinks his eyes. Objective Last 24 Hour Vital Signs Date Time Temp Pulse Resp B/P (MAP) Pulse Ox O2 Delivery O2 Flow Rate FiO2 06/23/17 17:09 86 20 28 06/23/17 14:50 93 22 28 06/23/17 13:00 98.4 88 20 125/67 100 Mechanical Ventilator 28 06/23/17 12:48 69 22 28 06/23/17 12:00 28 06/23/17 12:00 66 06/23/17 11:00 70 20 111/68 100 Mechanical Ventilator 28 06/23/17 10:47 65 20 28 06/23/17 10:38 68 20 109/64 100 Mechanical Ventilator 28 06/23/17 10:00 79 19 109/64 100 Mechanical Ventilator 28 06/23/17 09:12 101 22 28 06/23/17 09:00 79 19 109/64 100 Mechanical Ventilator 28 06/23/17 08:00 98.6 66 22 108/69 100 Mechanical Ventilator 28 06/23/17 08:00 66 06/23/17 08:00 28 06/23/17 07:51 62 20 28 06/23/17 06:00 89 22 150/77 100 Mechanical Ventilator 28 06/23/17 05:18 95 20 28 06/23/17 05:00 87 22 147/77 100 Mechanical Ventilator 28 06/23/17 04:00 90 06/23/17 04:00 100.4 82 22 148/77 100 Mechanical Ventilator 28 06/23/17 04:00 28 06/23/17 03:09 86 20 28 06/23/17 03:00 83 22 130/75 100 Mechanical Ventilator 28 06/23/17 02:00 83 21 124/82 100 Mechanical Ventilator 28 06/23/17 01:12 81 21 28 06/23/17 01:00 84 21 133/89 100 Mechanical Ventilator 28 06/23/17 00:00 28 06/23/17 00:00 98.8 82 20 144/72 100 Mechanical Ventilator 28 06/22/17 23:09 72 20 28 06/22/17 23:00 74 20 144/72 100 Mechanical Ventilator 28 06/22/17 22:00 67 20 144/77 100 Mechanical Ventilator 28 06/22/17 21:03 69 21 28 06/22/17 21:00 67 20 154/79 100 Mechanical Ventilator 28 06/22/17 20:54 175/88 06/22/17 20:30 73 20 153/81 100 Mechanical Ventilator 28 06/22/17 20:00 85 06/22/17 20:00 28 06/22/17 20:00 99.2 74 20 168/100 100 Mechanical Ventilator 28 06/22/17 19:00 73 25 152/84 100 Mechanical Ventilator 23 06/22/17 18:54 81 20 28 06/22/17 18:00 85 25 171/83 100 Mechanical Ventilator 23 06/22/17 17:27 88 21 28 Intake and Output 06/22/17 06/23/17 19:00 07:00 Intake Total 750 ml 1430 ml Output Total 1090 ml 1250 ml Balance -340 ml 180 ml Intake Free Water 30 ml IV Total 700 ml 1250 ml Tube Feeding 150 ml Other 50 ml Output Urine Total 1090 ml 1250 ml # Bowel Movements 2 2 Laboratory Tests Test 06/23/17 04:50 06/23/17 15:39 Sodium Level 140 MMOL/L (136-145) 139 MMOL/L (136-145) Potassium Level 3.6 MMOL/L (3.5-5.1) 3.7 MMOL/L (3.5-5.1) Chloride Level 110 MMOL/L (98-107) H 108 MMOL/L (98-107) H Carbon Dioxide Level 19 MMOL/L (21-32) L 19 MMOL/L (21-32) L Anion Gap 11 mmol/L (5-15) 12 mmol/L (5-15) Blood Urea Nitrogen 30 mg/dL (7-18) H 29 mg/dL (7-18) H Creatinine 2.4 MG/DL (0.55-1.30) H 2.4 MG/DL (0.55-1.30) H Estimat Glomerular Filtration Rate 38.7 mL/min (>60) 38.7 mL/min (>60) Glucose Level 256 MG/DL (74-106) H 311 MG/DL (74-106) H Calcium Level 8.8 MG/DL (8.5-10.1) 8.9 MG/DL (8.5-10.1) Total Bilirubin 0.2 MG/DL (0.2-1.0) 0.2 MG/DL (0.2-1.0) Aspartate Amino Transf (AST/SGOT) 131 U/L (15-37) H 105 U/L (15-37) H Alanine Aminotransferase (ALT/SGPT) 154 U/L (12-78) H 146 U/L (12-78) H Alkaline Phosphatase 87 U/L (46-116) 85 U/L (46-116) Total Protein 6.0 G/DL (6.4-8.2) L 6.1 G/DL (6.4-8.2) L Albumin 1.7 G/DL (3.4-5.0) L 1.7 G/DL (3.4-5.0) L Globulin 4.3 g/dL 4.4 g/dL Albumin/Globulin Ratio 0.4 (1.0-2.7) L 0.4 (1.0-2.7) L Lipase 2764 U/L (73-393) H White Blood Count 18.8 K/UL (4.8-10.8) H Red Blood Count 3.31 M/UL (4.70-6.10) L Hemoglobin 10.7 G/DL (14.2-18.0) L Hematocrit 31.4 % (42.0-52.0) L Mean Corpuscular Volume 95 FL (80-99) Mean Corpuscular Hemoglobin 32.3 PG (27.0-31.0) H Mean Corpuscular Hemoglobin Concent 34.0 G/DL (32.0-36.0) Red Cell Distribution Width 11.3 % (11.6-14.8) L Platelet Count 453 K/UL (150-450) H Mean Platelet Volume 5.6 FL (6.5-10.1) L Neutrophils (%) (Auto) 82.9 % (45.0-75.0) H Lymphocytes (%) (Auto) 6.6 % (20.0-45.0) L Monocytes (%) (Auto) 8.6 % (1.0-10.0) Eosinophils (%) (Auto) 1.0 % (0.0-3.0) Basophils (%) (Auto) 0.8 % (0.0-2.0) Microbiology Date/Time Source Procedure Growth Status 06/22/17 14:50 Sputum Expectorated Gram Stain - Final Resulted 06/22/17 14:50 Sputum Expectorated Sputum Culture - Preliminary Resulted Objective HEAD AND NECK: No JVD.Orally intubated. OG tube in LUNGS: Clear. CARDIOVASCULAR: Tachy S1 and S2 with no gallop or murmur. ABDOMEN: Soft and nontender. EXTREMITIES: No pitting edema. ALBERT ROWAN Jun 23, 2017 17:13
--- NOTE | 2017-06-23 17:34 | Pulmonology Progress Note ---
Assessment/Plan Assessment/Plan IMPRESSION: 1. Respiratory failure 2. Cannabis usage. 3. Diabetic ketoacidosis. 4. Troponin leak. 5. Tachycardia. 6. AMS; suspect anoxic brain injury DISCUSSION: Agree with present management and care. The patient is at this time on vancomycin, insulin, thiamine, normal saline, and Zosyn, which I will all continue. I will begin weaning once the patient is more stable and awake. continue vent settings to AC of 20, tidal volume 550, FiO2 80%. Ammonia is normal Reviewed neurology notes Continue vent/ AC mode Apparently had received Ativan last night; asked RN to DC Subjective Interval Events: None Constitutional: Reports: no symptoms HEENT: Repors: no symptoms Respiratory: Reports: no symptoms Cardiovascular: Reports: no symptoms Gastrointestinal/Abdominal: Reports: no symptoms Allergies: Coded Allergies: No Known Allergies (Unverified , 06/15/17) Objective Last 24 Hour Vital Signs Date Time Temp Pulse Resp B/P (MAP) Pulse Ox O2 Delivery O2 Flow Rate FiO2 06/23/17 17:09 86 20 28 06/23/17 14:50 93 22 28 06/23/17 13:00 98.4 88 20 125/67 100 Mechanical Ventilator 28 06/23/17 12:48 69 22 28 06/23/17 12:00 28 06/23/17 12:00 66 06/23/17 11:00 70 20 111/68 100 Mechanical Ventilator 28 06/23/17 10:47 65 20 28 06/23/17 10:38 68 20 109/64 100 Mechanical Ventilator 28 06/23/17 10:00 79 19 109/64 100 Mechanical Ventilator 28 06/23/17 09:12 101 22 28 06/23/17 09:00 79 19 109/64 100 Mechanical Ventilator 28 06/23/17 08:00 98.6 66 22 108/69 100 Mechanical Ventilator 28 06/23/17 08:00 66 06/23/17 08:00 28 06/23/17 07:51 62 20 28 06/23/17 06:00 89 22 150/77 100 Mechanical Ventilator 28 06/23/17 05:18 95 20 28 06/23/17 05:00 87 22 147/77 100 Mechanical Ventilator 28 06/23/17 04:00 90 06/23/17 04:00 100.4 82 22 148/77 100 Mechanical Ventilator 28 06/23/17 04:00 28 06/23/17 03:09 86 20 28 06/23/17 03:00 83 22 130/75 100 Mechanical Ventilator 28 06/23/17 02:00 83 21 124/82 100 Mechanical Ventilator 28 06/23/17 01:12 81 21 28 06/23/17 01:00 84 21 133/89 100 Mechanical Ventilator 28 06/23/17 00:00 28 06/23/17 00:00 98.8 82 20 144/72 100 Mechanical Ventilator 28 06/22/17 23:09 72 20 28 06/22/17 23:00 74 20 144/72 100 Mechanical Ventilator 28 06/22/17 22:00 67 20 144/77 100 Mechanical Ventilator 28 06/22/17 21:03 69 21 28 06/22/17 21:00 67 20 154/79 100 Mechanical Ventilator 28 06/22/17 20:54 175/88 06/22/17 20:30 73 20 153/81 100 Mechanical Ventilator 28 06/22/17 20:00 85 06/22/17 20:00 28 06/22/17 20:00 99.2 74 20 168/100 100 Mechanical Ventilator 28 06/22/17 19:00 73 25 152/84 100 Mechanical Ventilator 23 06/22/17 18:54 81 20 28 06/22/17 18:00 85 25 171/83 100 Mechanical Ventilator 23 Intake and Output 06/22/17 06/23/17 19:00 07:00 Intake Total 750 ml 1430 ml Output Total 1090 ml 1250 ml Balance -340 ml 180 ml Intake Free Water 30 ml IV Total 700 ml 1250 ml Tube Feeding 150 ml Other 50 ml Output Urine Total 1090 ml 1250 ml # Bowel Movements 2 2 General Appearance: no acute distress HEENT: normocephalic Respiratory/Chest: chest wall non-tender, lungs clear Cardiovascular: normal peripheral pulses, normal rate Abdomen: normal bowel sounds Microbiology Date/Time Source Procedure Growth Status 06/22/17 14:50 Sputum Expectorated Gram Stain - Final Resulted 06/22/17 14:50 Sputum Expectorated Sputum Culture - Preliminary Resulted Laboratory Tests 06/23/17 04:50: Sodium Level 140, Potassium Level 3.6, Chloride Level 110H, Carbon Dioxide Level 19L, Anion Gap 11, Blood Urea Nitrogen 30H, Creatinine 2.4H, Estimat Glomerular Filtration Rate 38.7, Glucose Level 256H, Calcium Level 8.8, Total Bilirubin 0.2, Aspartate Amino Transf (AST/SGOT) 131H, Alanine Aminotransferase (ALT/SGPT) 154H, Alkaline Phosphatase 87, Total Protein 6.0L, Albumin 1.7L, Globulin 4.3, Albumin/Globulin Ratio 0.4L, Lipase 2764H 06/23/17 15:39: Sodium Level 139, Potassium Level 3.7, Chloride Level 108H, Carbon Dioxide Level 19L, Anion Gap 12, Blood Urea Nitrogen 29H, Creatinine 2.4H, Estimat Glomerular Filtration Rate 38.7, Glucose Level 311H, Calcium Level 8.9, Total Bilirubin 0.2, Aspartate Amino Transf (AST/SGOT) 105H, Alanine Aminotransferase (ALT/SGPT) 146H, Alkaline Phosphatase 85, Total Protein 6.1L, Albumin 1.7L, Globulin 4.4, Albumin/Globulin Ratio 0.4L, White Blood Count 18.8H, Red Blood Count 3.31L, Hemoglobin 10.7L, Hematocrit 31.4L, Mean Corpuscular Volume 95, Mean Corpuscular Hemoglobin 32.3H, Mean Corpuscular Hemoglobin Concent 34.0, Red Cell Distribution Width 11.3L, Platelet Count 453H, Mean Platelet Volume 5.6L, Neutrophils (%) (Auto) 82.9H, Lymphocytes (%) (Auto) 6.6L, Monocytes (%) ( Auto) 8.6, Eosinophils (%) (Auto) 1.0, Basophils (%) (Auto) 0.8 Current Medications Medications (Trade) Dose Ordered Sig/Conrado Route PRN Reason Start Time Stop Time Status Last Admin Dose Admin Acetaminophen (Tylenol) 650 mg Q4H PRN ORAL Mild Pain/Temp > 100.5 06/16/17 17:45 07/16/17 13:44 06/18/17 00:42 Atropine Sulfate (Atropine 1mg/ml Inj) 0.5 mg EVERY HOUR PRN IVP HR<35 BPM 06/16/17 16:15 07/16/17 16:14 Clindamycin HCl/ Dextrose 50 ml @ 100 mls/hr Q8HR IV 06/22/17 16:00 06/29/17 15:59 06/23/17 13:49 Clonidine HCl (Catapres Tab) 0.1 mg Q2H PRN ORAL SBP Greater than 170 1/8/18 12:30 07/18/17 12:29 06/22/17 20:54 Dextrose (Dextrose 50%) STAT PRN IV Hypoglycemia 06/17/17 08:15 07/17/17 08:14 06/18/17 05:25 Insulin Aspart (NovoLOG) EVERY 4 HOURS SUBQ 06/17/17 09:00 07/17/17 08:59 06/23/17 17:26 Insulin Detemir (Levemir) 9 units Q12HR SUBQ 06/18/17 21:00 07/18/17 20:59 06/23/17 08:53 Lansoprazole (Prevacid) 30 mg DAILY NG 06/22/17 09:00 07/22/17 08:59 06/23/17 08:51 Ondansetron HCl (Zofran) 4 mg Q6H PRN IVP Nausea & Vomiting 06/16/17 19:00 07/16/17 00:59 Piperacillin Sod/ Tazobactam Sod 3.375 gm/Dextrose 110 ml @ 27.5 mls/hr Q8H IVPB 06/16/17 17:00 06/29/17 16:59 06/23/17 17:27 Potassium Chloride 40 meq/ Dextrose 1,020 ml @ 100 mls/hr [id number] IV 06/20/17 18:00 07/20/17 17:59 06/23/17 11:39 Paulo Floyd MD Jun 23, 2017 17:34
--- NOTE | 2017-06-23 19:11 | Nephrology Progress Note ---
Assessment/Plan Problem List: (1) Hypernatremia Assessment: corrected (2) Hypokalemia Assessment: corrected (3) Fever (4) Acidosis (5) Respiratory distress (6) Pancreatitis (7) Elevated troponin (8) Alcohol withdrawal (9) Pneumonia (10) Sepsis (11) Cardiopulmonary arrest (12) Metabolic acidosis (13) DKA (diabetic ketoacidosis) Plan Continue current IVF Continue vent Strict glycemic control BP control Monitor lytes, correct prn Monitor neuro status, neurology following Monitor renal function Avoid nephrotoxins Monitor for withdrawal symptoms Abx per ID F/U with consults recs AM labs Subjective ROS Limited/Unobtainable: Yes Subjective Seen in the ICU, orally intubated on vent settings, non responsive at this time , adequate urine output noted via carpenter Objective Objective Last 24 Hour Vital Signs Date Time Temp Pulse Resp B/P (MAP) Pulse Ox O2 Delivery O2 Flow Rate FiO2 06/23/17 19:06 91 20 28 06/23/17 18:02 72 20 109/65 100 Mechanical Ventilator 28 06/23/17 17:09 86 20 28 06/23/17 17:00 86 20 109/59 100 Mechanical Ventilator 28 06/23/17 16:00 28 06/23/17 16:00 117 06/23/17 16:00 98.0 83 20 109/59 100 Mechanical Ventilator 28 06/23/17 15:00 97 21 109/56 100 Mechanical Ventilator 28 06/23/17 14:50 93 22 28 06/23/17 14:00 88 20 125/68 100 Mechanical Ventilator 28 06/23/17 13:00 98.4 88 20 125/67 100 Mechanical Ventilator 28 06/23/17 12:48 69 22 28 06/23/17 12:00 28 06/23/17 12:00 66 06/23/17 11:00 70 20 111/68 100 Mechanical Ventilator 28 06/23/17 10:47 65 20 28 06/23/17 10:38 68 20 109/64 100 Mechanical Ventilator 28 06/23/17 10:00 79 19 109/64 100 Mechanical Ventilator 28 06/23/17 09:12 101 22 28 06/23/17 09:00 79 19 109/64 100 Mechanical Ventilator 28 06/23/17 08:00 98.6 66 22 108/69 100 Mechanical Ventilator 28 06/23/17 08:00 66 06/23/17 08:00 28 06/23/17 07:51 62 20 28 06/23/17 06:00 89 22 150/77 100 Mechanical Ventilator 28 06/23/17 05:18 95 20 28 06/23/17 05:00 87 22 147/77 100 Mechanical Ventilator 28 06/23/17 04:00 90 06/23/17 04:00 100.4 82 22 148/77 100 Mechanical Ventilator 28 06/23/17 04:00 28 06/23/17 03:09 86 20 28 06/23/17 03:00 83 22 130/75 100 Mechanical Ventilator 28 06/23/17 02:00 83 21 124/82 100 Mechanical Ventilator 28 06/23/17 01:12 81 21 28 06/23/17 01:00 84 21 133/89 100 Mechanical Ventilator 28 06/23/17 00:00 28 06/23/17 00:00 98.8 82 20 144/72 100 Mechanical Ventilator 28 06/22/17 23:09 72 20 28 06/22/17 23:00 74 20 144/72 100 Mechanical Ventilator 28 06/22/17 22:00 67 20 144/77 100 Mechanical Ventilator 28 06/22/17 21:03 69 21 28 06/22/17 21:00 67 20 154/79 100 Mechanical Ventilator 28 06/22/17 20:54 175/88 06/22/17 20:30 73 20 153/81 100 Mechanical Ventilator 28 06/22/17 20:00 85 06/22/17 20:00 28 06/22/17 20:00 99.2 74 20 168/100 100 Mechanical Ventilator 28 Intake and Output 06/22/17 06/23/17 19:00 07:00 Intake Total 750 ml 1430 ml Output Total 1090 ml 1250 ml Balance -340 ml 180 ml Intake Free Water 30 ml IV Total 700 ml 1250 ml Tube Feeding 150 ml Other 50 ml Output Urine Total 1090 ml 1250 ml # Bowel Movements 2 2 Laboratory Tests 06/23/17 04:50: Sodium Level 140, Potassium Level 3.6, Chloride Level 110H, Carbon Dioxide Level 19L, Anion Gap 11, Blood Urea Nitrogen 30H, Creatinine 2.4H, Estimat Glomerular Filtration Rate 38.7, Glucose Level 256H, Calcium Level 8.8, Total Bilirubin 0.2, Aspartate Amino Transf (AST/SGOT) 131H, Alanine Aminotransferase (ALT/SGPT) 154H, Alkaline Phosphatase 87, Total Protein 6.0L, Albumin 1.7L, Globulin 4.3, Albumin/Globulin Ratio 0.4L, Lipase 2764H 06/23/17 15:39: Sodium Level 139, Potassium Level 3.7, Chloride Level 108H, Carbon Dioxide Level 19L, Anion Gap 12, Blood Urea Nitrogen 29H, Creatinine 2.4H, Estimat Glomerular Filtration Rate 38.7, Glucose Level 311H, Calcium Level 8.9, Total Bilirubin 0.2, Aspartate Amino Transf (AST/SGOT) 105H, Alanine Aminotransferase (ALT/SGPT) 146H, Alkaline Phosphatase 85, Total Protein 6.1L, Albumin 1.7L, Globulin 4.4, Albumin/Globulin Ratio 0.4L, White Blood Count 18.8H, Red Blood Count 3.31L, Hemoglobin 10.7L, Hematocrit 31.4L, Mean Corpuscular Volume 95, Mean Corpuscular Hemoglobin 32.3H, Mean Corpuscular Hemoglobin Concent 34.0, Red Cell Distribution Width 11.3L, Platelet Count 453H, Mean Platelet Volume 5.6L, Neutrophils (%) (Auto) 82.9H, Lymphocytes (%) (Auto) 6.6L, Monocytes (%) ( Auto) 8.6, Eosinophils (%) (Auto) 1.0, Basophils (%) (Auto) 0.8 Height (Feet): 5 Height (Inches): 7.00 Weight (Pounds): 114 General Appearance: no apparent distress Neck: supple Cardiovascular: normal rate Respiratory/Chest: decreased breath sounds, other - orally intubated on vent settings Abdomen: soft Genitourinary/Rectal: other - carpenter Neurologic: unresponsive Hannah Johnson N.P. Jun 23, 2017 19:11
[2017-06-24] VITALS (23 sets, daily range): BP systolic 106–172; BP diastolic 58–116
[2017-06-24] MEDS: Piperacillin/Tazobactam 3.375 GM in D5W 110 ML IVPB SCH ×3 (00:51→17:26)
[2017-06-24] MEDS: NovoLOG Insulin Flexpen SUBQ SCH ×6 (00:52→20:56)
[2017-06-24] MEDS: Clindamycin 600mg 50 ML IV SCH ×3 (05:27→21:48)
[2017-06-24] MEDS: Levemir Flexpen SUBQ SCH ×2 (09:01→21:02)
--- NOTE | 2017-06-24 09:36 | General Progress Note ---
Assessment/Plan Problem List: (1) DKA (diabetic ketoacidosis) ICD Codes: E13.10 - Other specified diabetes mellitus with ketoacidosis without coma SNOMED: 91573785, 101107350 Qualifiers: Qualified Codes: E10.11 - Type 1 diabetes mellitus with ketoacidosis with coma (2) Metabolic acidosis ICD Codes: E87.2 - Acidosis SNOMED: 37851448 (3) Cardiopulmonary arrest ICD Codes: I46.9 - Cardiac arrest, cause unspecified SNOMED: 310482995 Assessment/Plan increase Levemir to 16 units bid continue Novolog isliding scale Subjective ROS Limited/Unobtainable: Yes Allergies: Coded Allergies: No Known Allergies (Unverified , 06/15/17) Subjective events noted Objective Last 24 Hour Vital Signs Date Time Temp Pulse Resp B/P (MAP) Pulse Ox O2 Delivery O2 Flow Rate FiO2 06/24/17 09:28 130 38 28 06/24/17 08:00 28 06/24/17 07:00 85 20 117/67 100 Mechanical Ventilator 28 06/24/17 06:47 122 33 28 06/24/17 06:00 108 20 138/83 98 Mechanical Ventilator 28 06/24/17 05:02 73 20 28 06/24/17 05:00 114 20 136/86 98 Mechanical Ventilator 28 06/24/17 04:00 103 06/24/17 04:00 28 06/24/17 04:00 99.4 80 20 142/92 100 Mechanical Ventilator 28 06/24/17 03:00 96 20 151/116 98 Mechanical Ventilator 28 06/24/17 03:00 84 20 28 06/24/17 02:00 93 20 151/116 98 Mechanical Ventilator 28 06/24/17 01:24 81 20 28 06/24/17 01:00 91 20 110/58 100 Mechanical Ventilator 28 06/24/17 00:00 99.9 82 20 106/60 100 Mechanical Ventilator 28 06/24/17 00:00 88 06/23/17 23:20 77 20 28 06/23/17 23:00 82 20 117/69 100 Mechanical Ventilator 28 06/23/17 22:00 88 24 157/78 99 Mechanical Ventilator 28 06/23/17 21:11 90 34 28 06/23/17 21:00 98 30 138/97 100 Mechanical Ventilator 28 06/23/17 20:00 99.1 113 33 117/73 98 Mechanical Ventilator 28 06/23/17 20:00 114 06/23/17 20:00 28 06/23/17 19:13 94 20 117/73 100 Mechanical Ventilator 28 06/23/17 19:06 91 20 28 06/23/17 18:02 72 20 109/65 100 Mechanical Ventilator 28 06/23/17 17:09 86 20 28 06/23/17 17:00 86 20 109/59 100 Mechanical Ventilator 28 06/23/17 16:00 28 06/23/17 16:00 117 06/23/17 16:00 98.0 83 20 109/59 100 Mechanical Ventilator 28 06/23/17 15:00 97 21 109/56 100 Mechanical Ventilator 28 06/23/17 14:50 93 22 28 06/23/17 14:00 88 20 125/68 100 Mechanical Ventilator 28 06/23/17 13:00 98.4 88 20 125/67 100 Mechanical Ventilator 28 06/23/17 12:48 69 22 28 06/23/17 12:00 28 06/23/17 12:00 66 06/23/17 11:00 70 20 111/68 100 Mechanical Ventilator 28 06/23/17 10:47 65 20 28 06/23/17 10:38 68 20 109/64 100 Mechanical Ventilator 28 06/23/17 10:00 79 19 109/64 100 Mechanical Ventilator 28 Intake and Output 06/23/17 06/24/17 19:00 07:00 Intake Total 537.5 ml 2280.0 ml Output Total 691 ml 1435 ml Balance -153.5 ml 845.0 ml Intake Free Water 120 ml IV Total 127.5 ml 1510.0 ml Tube Feeding 410 ml 650 ml Output Urine Total 691 ml 1435 ml # Bowel Movements 52 Laboratory Tests 06/23/17 15:39: White Blood Count 18.8H, Red Blood Count 3.31L, Hemoglobin 10.7L, Hematocrit 31.4L, Mean Corpuscular Volume 95, Mean Corpuscular Hemoglobin 32.3H, Mean Corpuscular Hemoglobin Concent 34.0, Red Cell Distribution Width 11.3L, Platelet Count 453H, Mean Platelet Volume 5.6L, Neutrophils (%) (Auto) 82.9H, Lymphocytes (%) (Auto) 6.6L, Monocytes (%) (Auto) 8.6, Eosinophils (%) (Auto) 1.0, Basophils (%) (Auto) 0.8, Sodium Level 139, Potassium Level 3.7, Chloride Level 108H, Carbon Dioxide Level 19L, Anion Gap 12, Blood Urea Nitrogen 29H, Creatinine 2.4H, Estimat Glomerular Filtration Rate 38.7, Glucose Level 311H, Calcium Level 8.9, Total Bilirubin 0.2, Aspartate Amino Transf (AST/SGOT) 105H, Alanine Aminotransferase (ALT/SGPT) 146H, Alkaline Phosphatase 85, Total Protein 6.1L, Albumin 1.7L, Globulin 4.4, Albumin/Globulin Ratio 0.4L Height (Feet): 5 Height (Inches): 7.00 Weight (Pounds): 118 General Appearance: moderate distress Neck: normal alignment Cardiovascular: tachycardia Respiratory/Chest: decreased breath sounds Abdomen: normal bowel sounds Objective Current Medications Medications (Trade) Dose Ordered Sig/Conrado Route PRN Reason Start Time Stop Time Status Last Admin Dose Admin Acetaminophen (Tylenol) 650 mg Q4H PRN ORAL Mild Pain/Temp > 100.5 06/16/17 17:45 07/16/17 13:44 06/18/17 00:42 Atropine Sulfate (Atropine 1mg/ml Inj) 0.5 mg EVERY HOUR PRN IVP HR<35 BPM 06/16/17 16:15 07/16/17 16:14 Clindamycin HCl/ Dextrose 50 ml @ 100 mls/hr Q8HR IV 06/22/17 16:00 06/29/17 15:59 06/24/17 05:27 Clonidine HCl (Catapres Tab) 0.1 mg Q2H PRN ORAL SBP Greater than 170 06/18/17 12:30 07/18/17 12:29 06/22/17 20:54 Dextrose (Dextrose 50%) STAT PRN IV Hypoglycemia 06/17/17 08:15 07/17/17 08:14 06/18/17 05:25 Insulin Aspart (NovoLOG) EVERY 4 HOURS SUBQ 06/17/17 09:00 07/17/17 08:59 06/24/17 09:00 Insulin Detemir (Levemir) 9 units Q12HR SUBQ 06/18/17 21:00 07/18/17 20:59 06/24/17 09:01 Lansoprazole (Prevacid) 30 mg DAILY NG 06/22/17 09:00 07/22/17 08:59 06/24/17 08:45 Ondansetron HCl (Zofran) 4 mg Q6H PRN IVP Nausea & Vomiting 06/16/17 19:00 07/16/17 00:59 Piperacillin Sod/ Tazobactam Sod 3.375 gm/Dextrose 110 ml @ 27.5 mls/hr Q8H IVPB 06/16/17 17:00 06/29/17 16:59 06/24/17 08:45 Potassium Chloride 40 meq/ Dextrose 1,020 ml @ 100 mls/hr [id number] IV 06/20/17 18:00 07/20/17 17:59 06/23/17 22:04 Item Value Date Time Bedside Blood Glucose 320 mg/dl H 06/24/17 0901 Bedside Blood Glucose 294 mg/dl H 06/24/17 0527 Bedside Blood Glucose 129 mg/dl H 06/24/17 0100 Bedside Blood Glucose 279 mg/dl H 06/23/17 2100 Bedside Blood Glucose 316 mg/dl H 06/23/17 1726 Bedside Blood Glucose 311 mg/dl H 06/23/17 1345 Bedside Blood Glucose 239 mg/dl H 06/23/17 0900 Bedside Blood Glucose 269 mg/dl H 06/23/17 0514 JADIEL MARCANO Jun 24, 2017 09:36
--- NOTE | 2017-06-24 10:11 | Pulmonology Progress Note ---
Assessment/Plan Assessment/Plan IMPRESSION: 1. Respiratory failure 2. Cannabis usage. 3. Diabetic ketoacidosis. 4. Troponin leak. 5. Tachycardia. 6. AMS; suspect anoxic brain injury DISCUSSION: Agree with present management and care. continue vent settings to AC of 20, tidal volume 550, FiO2 80%. Ammonia is normal Reviewed neurology notes Continue vent/ AC mode Apparently had received sedation Ativan few nights ago; asked RN to DC Subjective Interval Events: No change Constitutional: Reports: no symptoms HEENT: Repors: no symptoms Respiratory: Reports: no symptoms Cardiovascular: Reports: no symptoms Gastrointestinal/Abdominal: Reports: no symptoms Genitourinary: Reports: no symptoms Allergies: Coded Allergies: No Known Allergies (Unverified , 06/15/17) Objective Last 24 Hour Vital Signs Date Time Temp Pulse Resp B/P (MAP) Pulse Ox O2 Delivery O2 Flow Rate FiO2 06/24/17 09:28 130 38 28 06/24/17 08:00 28 06/24/17 07:00 85 20 117/67 100 Mechanical Ventilator 28 06/24/17 06:47 122 33 28 06/24/17 06:00 108 20 138/83 98 Mechanical Ventilator 28 06/24/17 05:02 73 20 28 06/24/17 05:00 114 20 136/86 98 Mechanical Ventilator 28 06/24/17 04:00 103 06/24/17 04:00 28 06/24/17 04:00 99.4 80 20 142/92 100 Mechanical Ventilator 28 06/24/17 03:00 96 20 151/116 98 Mechanical Ventilator 28 06/24/17 03:00 84 20 28 06/24/17 02:00 93 20 151/116 98 Mechanical Ventilator 28 06/24/17 01:24 81 20 28 06/24/17 01:00 91 20 110/58 100 Mechanical Ventilator 28 06/24/17 00:00 99.9 82 20 106/60 100 Mechanical Ventilator 28 06/24/17 00:00 88 06/23/17 23:20 77 20 28 06/23/17 23:00 82 20 117/69 100 Mechanical Ventilator 28 06/23/17 22:00 88 24 157/78 99 Mechanical Ventilator 28 06/23/17 21:11 90 34 28 06/23/17 21:00 98 30 138/97 100 Mechanical Ventilator 28 06/23/17 20:00 99.1 113 33 117/73 98 Mechanical Ventilator 28 06/23/17 20:00 114 06/23/17 20:00 28 06/23/17 19:13 94 20 117/73 100 Mechanical Ventilator 28 06/23/17 19:06 91 20 28 06/23/17 18:02 72 20 109/65 100 Mechanical Ventilator 28 06/23/17 17:09 86 20 28 06/23/17 17:00 86 20 109/59 100 Mechanical Ventilator 28 06/23/17 16:00 28 06/23/17 16:00 117 06/23/17 16:00 98.0 83 20 109/59 100 Mechanical Ventilator 28 06/23/17 15:00 97 21 109/56 100 Mechanical Ventilator 28 06/23/17 14:50 93 22 28 06/23/17 14:00 88 20 125/68 100 Mechanical Ventilator 28 06/23/17 13:00 98.4 88 20 125/67 100 Mechanical Ventilator 28 06/23/17 12:48 69 22 28 06/23/17 12:00 28 06/23/17 12:00 66 06/23/17 11:00 70 20 111/68 100 Mechanical Ventilator 28 06/23/17 10:47 65 20 28 06/23/17 10:38 68 20 109/64 100 Mechanical Ventilator 28 Intake and Output 06/23/17 06/24/17 19:00 07:00 Intake Total 537.5 ml 2280.0 ml Output Total 691 ml 1435 ml Balance -153.5 ml 845.0 ml Intake Free Water 120 ml IV Total 127.5 ml 1510.0 ml Tube Feeding 410 ml 650 ml Output Urine Total 691 ml 1435 ml # Bowel Movements 52 General Appearance: no acute distress HEENT: normocephalic Respiratory/Chest: chest wall non-tender, lungs clear Cardiovascular: normal peripheral pulses, normal rate Abdomen: normal bowel sounds Microbiology Date/Time Source Procedure Growth Status 06/22/17 14:50 Sputum Expectorated Gram Stain - Final Complete 06/22/17 14:50 Sputum Expectorated Sputum Culture - Final NORMAL UPPER RESPIRATORY OSWALDO PRESENT Complete Laboratory Tests 06/23/17 15:39: White Blood Count 18.8H, Red Blood Count 3.31L, Hemoglobin 10.7L, Hematocrit 31.4L, Mean Corpuscular Volume 95, Mean Corpuscular Hemoglobin 32.3H, Mean Corpuscular Hemoglobin Concent 34.0, Red Cell Distribution Width 11.3L, Platelet Count 453H, Mean Platelet Volume 5.6L, Neutrophils (%) (Auto) 82.9H, Lymphocytes (%) (Auto) 6.6L, Monocytes (%) (Auto) 8.6, Eosinophils (%) (Auto) 1.0, Basophils (%) (Auto) 0.8, Sodium Level 139, Potassium Level 3.7, Chloride Level 108H, Carbon Dioxide Level 19L, Anion Gap 12, Blood Urea Nitrogen 29H, Creatinine 2.4H, Estimat Glomerular Filtration Rate 38.7, Glucose Level 311H, Calcium Level 8.9, Total Bilirubin 0.2, Aspartate Amino Transf (AST/SGOT) 105H, Alanine Aminotransferase (ALT/SGPT) 146H, Alkaline Phosphatase 85, Total Protein 6.1L, Albumin 1.7L, Globulin 4.4, Albumin/Globulin Ratio 0.4L Current Medications Medications (Trade) Dose Ordered Sig/Conrado Route PRN Reason Start Time Stop Time Status Last Admin Dose Admin Acetaminophen (Tylenol) 650 mg Q4H PRN ORAL Mild Pain/Temp > 100.5 06/16/17 17:45 07/16/17 13:44 06/18/17 00:42 Atropine Sulfate (Atropine 1mg/ml Inj) 0.5 mg EVERY HOUR PRN IVP HR<35 BPM 06/16/17 16:15 07/16/17 16:14 Clindamycin HCl/ Dextrose 50 ml @ 100 mls/hr Q8HR IV 06/22/17 16:00 06/29/17 15:59 06/24/17 05:27 Clonidine HCl (Catapres Tab) 0.1 mg Q2H PRN ORAL SBP Greater than 170 06/18/17 12:30 07/18/17 12:29 06/22/17 20:54 Dextrose (Dextrose 50%) STAT PRN IV Hypoglycemia 06/17/17 08:15 07/17/17 08:14 06/18/17 05:25 Insulin Aspart (NovoLOG) EVERY 4 HOURS SUBQ 06/17/17 09:00 07/17/17 08:59 06/24/17 09:00 Insulin Detemir (Levemir) 16 units Q12HR SUBQ 06/24/17 21:00 07/24/17 20:59 Lansoprazole (Prevacid) 30 mg DAILY NG 06/22/17 09:00 07/22/17 08:59 06/24/17 08:45 Ondansetron HCl (Zofran) 4 mg Q6H PRN IVP Nausea & Vomiting 06/16/17 19:00 07/16/17 00:59 Piperacillin Sod/ Tazobactam Sod 3.375 gm/Dextrose 110 ml @ 27.5 mls/hr Q8H IVPB 06/16/17 17:00 06/29/17 16:59 06/24/17 08:45 Potassium Chloride 40 meq/ Dextrose 1,020 ml @ 100 mls/hr [id number] IV 06/20/17 18:00 07/20/17 17:59 06/23/17 22:04 Paulo Floyd MD Jun 24, 2017 10:11
[2017-06-24] MEDS ORDERED: 1/2 NS 1000ml IV ONE (15:49)
[2017-06-24] MEDS ORDERED: NS 500ML ONE (15:49)
[2017-06-24] MEDS ORDERED: Tubing IV Secondary IV ONE ×2 (15:49→15:51)
--- NOTE | 2017-06-24 17:42 | Nephrology Progress Note ---
Assessment/Plan Problem List: (1) Hypernatremia Assessment: corrected (2) Hypokalemia Assessment: corrected (3) Fever (4) Acidosis (5) Respiratory distress (6) Pancreatitis (7) Elevated troponin (8) Alcohol withdrawal (9) Pneumonia (10) Sepsis (11) Cardiopulmonary arrest (12) Metabolic acidosis (13) DKA (diabetic ketoacidosis) Plan Continue current IVF Continue vent Strict glycemic control BP control Monitor lytes, correct prn Monitor neuro status, neurology following Monitor renal function Avoid nephrotoxins Monitor for withdrawal symptoms Abx per ID F/U with consults recs AM labs Subjective Constitutional: Denies: no symptoms, chills, diaphoresis, fever, malaise, weakness, other HEENT: Denies: no symptoms, eye pain, blurred vision, tearing, double vision, ear pain, ear discharge, nose pain, nose congestion, throat pain, throat swelling, mouth pain, mouth swelling, other Genitourinary: Denies: no symptoms, burning, discharge, frequency, flank pain, hematuria, incontinence, pain, urgency, other Neurologic/Psychiatric: Denies: no symptoms, anxiety, depressed, emotional problems, headache, numbness, paresthesia, pre-existing deficit, seizure, tingling, tremors, weakness, other Subjective Seen in the ICU, orally intubated on vent settings, non responsive at this time , adequate urine output noted via carpenter Objective Objective Last 24 Hour Vital Signs Date Time Temp Pulse Resp B/P (MAP) Pulse Ox O2 Delivery O2 Flow Rate FiO2 06/24/17 17:19 115 29 28 06/24/17 16:00 28 06/24/17 15:04 120 33 28 06/24/17 15:00 114 25 168/94 100 Mechanical Ventilator 28 06/24/17 14:00 120 20 168/104 100 Mechanical Ventilator 28 06/24/17 13:19 124 35 28 06/24/17 13:00 112 31 169/101 100 Mechanical Ventilator 28 06/24/17 12:00 28 06/24/17 12:00 98.5 102 23 137/81 100 Mechanical Ventilator 06/24/17 12:00 90 06/24/17 11:13 105 46 28 06/24/17 11:00 84 22 143/94 100 Mechanical Ventilator 06/24/17 10:00 86 20 134/83 100 Mechanical Ventilator 28 06/24/17 09:28 130 38 28 06/24/17 09:00 111 33 172/103 100 Mechanical Ventilator 28 06/24/17 08:00 28 06/24/17 08:00 113 06/24/17 07:00 85 20 117/67 100 Mechanical Ventilator 28 06/24/17 06:47 122 33 28 06/24/17 06:00 108 20 138/83 98 Mechanical Ventilator 28 06/24/17 05:02 73 20 28 06/24/17 05:00 114 20 136/86 98 Mechanical Ventilator 28 06/24/17 04:00 103 06/24/17 04:00 28 06/24/17 04:00 99.4 80 20 142/92 100 Mechanical Ventilator 28 06/24/17 03:00 96 20 151/116 98 Mechanical Ventilator 28 06/24/17 03:00 84 20 28 06/24/17 02:00 93 20 151/116 98 Mechanical Ventilator 28 06/24/17 01:24 81 20 28 06/24/17 01:00 91 20 110/58 100 Mechanical Ventilator 28 06/24/17 00:00 99.9 82 20 106/60 100 Mechanical Ventilator 28 06/24/17 00:00 88 06/23/17 23:20 77 20 28 06/23/17 23:00 82 20 117/69 100 Mechanical Ventilator 28 06/23/17 22:00 88 24 157/78 99 Mechanical Ventilator 28 06/23/17 21:11 90 34 28 06/23/17 21:00 98 30 138/97 100 Mechanical Ventilator 28 06/23/17 20:00 99.1 113 33 117/73 98 Mechanical Ventilator 28 06/23/17 20:00 114 06/23/17 20:00 28 06/23/17 19:13 94 20 117/73 100 Mechanical Ventilator 28 06/23/17 19:06 91 20 28 06/23/17 18:02 72 20 109/65 100 Mechanical Ventilator 28 Intake and Output 06/23/17 06/24/17 19:00 07:00 Intake Total 537.5 ml 2280.0 ml Output Total 691 ml 1435 ml Balance -153.5 ml 845.0 ml Intake Free Water 120 ml IV Total 127.5 ml 1510.0 ml Tube Feeding 410 ml 650 ml Output Urine Total 691 ml 1435 ml # Bowel Movements 52 Height (Feet): 5 Height (Inches): 7.00 Weight (Pounds): 118 General Appearance: no apparent distress EENT: other - orally intubated Neck: supple Cardiovascular: normal rate Respiratory/Chest: decreased breath sounds, other - vent Abdomen: soft Genitourinary/Rectal: other - carpenter Extremities: non-tender Neurologic: unresponsive Hannah Johnson N.P. Jun 24, 2017 17:42
--- NOTE | 2017-06-24 18:04 | General Progress Note ---
Assessment/Plan Assessment/Plan Assessment/Plan Problems: (1) Shock liver ICD Codes: K72.00 - Acute and subacute hepatic failure without coma SNOMED: 920756457 (2) Anoxic cerebral edema ICD Codes: G93.6 - Cerebral edema; R09.02 - Hypoxemia SNOMED: 9830403, 625324829 (3) Transaminitis ICD Codes: R74.0 - Nonspecific elevation of levels of transaminase and lactic acid dehydrogenase [LDH] SNOMED: 858992237, 687947200 (4) Alcohol withdrawal ICD Codes: F10.239 - Alcohol dependence with withdrawal, unspecified SNOMED: 462360009 (5) Pancreatitis ICD Codes: K85.90 - Acute pancreatitis without necrosis or infection, unspecified SNOMED: 86652786 Status: unchanged Assessment/Plan head CT reviewed >> Suspect diffuse cerebral anoxia and edema. utox positive marijuana macrocytic hyperchromic anemia OB stool positive defer GI procedures at this time, respiratory status not stable maintain NPO + IVFs at this time given DKA, elevated lipase and shocked liver DM mgmt electrolyte correction rising LFTs >> shocked liver follow lipase ppi BID hold iron supplementation given elevated ferritin monitor H&H, prn transfusions fu labs advance TF Subjective Allergies: Coded Allergies: No Known Allergies (Unverified , 06/15/17) Subjective seen in ICU family at bedside tolerating TF non communicative Objective Last 24 Hour Vital Signs Date Time Temp Pulse Resp B/P (MAP) Pulse Ox O2 Delivery O2 Flow Rate FiO2 06/24/17 17:19 115 29 28 06/24/17 17:00 112 22 153/92 100 Mechanical Ventilator 28 06/24/17 16:00 28 06/24/17 16:00 98.9 112 22 152/95 100 Mechanical Ventilator 28 06/24/17 15:04 120 33 28 06/24/17 15:00 114 25 168/94 100 Mechanical Ventilator 28 06/24/17 14:00 120 20 168/104 100 Mechanical Ventilator 28 06/24/17 13:19 124 35 28 06/24/17 13:00 112 31 169/101 100 Mechanical Ventilator 28 06/24/17 12:00 28 06/24/17 12:00 98.5 102 23 137/81 100 Mechanical Ventilator 28 06/24/17 12:00 90 06/24/17 11:13 105 46 28 06/24/17 11:00 84 22 143/94 100 Mechanical Ventilator 28 06/24/17 10:00 86 20 134/83 100 Mechanical Ventilator 28 06/24/17 09:28 130 38 28 06/24/17 09:00 111 33 172/103 100 Mechanical Ventilator 28 06/24/17 08:00 28 06/24/17 08:00 113 06/24/17 07:00 85 20 117/67 100 Mechanical Ventilator 28 06/24/17 06:47 122 33 28 06/24/17 06:00 108 20 138/83 98 Mechanical Ventilator 28 06/24/17 05:02 73 20 28 06/24/17 05:00 114 20 136/86 98 Mechanical Ventilator 28 06/24/17 04:00 103 06/24/17 04:00 28 06/24/17 04:00 99.4 80 20 142/92 100 Mechanical Ventilator 28 06/24/17 03:00 96 20 151/116 98 Mechanical Ventilator 28 06/24/17 03:00 84 20 28 06/24/17 02:00 93 20 151/116 98 Mechanical Ventilator 28 06/24/17 01:24 81 20 28 06/24/17 01:00 91 20 110/58 100 Mechanical Ventilator 28 06/24/17 00:00 99.9 82 20 106/60 100 Mechanical Ventilator 28 06/24/17 00:00 88 06/23/17 23:20 77 20 28 06/23/17 23:00 82 20 117/69 100 Mechanical Ventilator 28 06/23/17 22:00 88 24 157/78 99 Mechanical Ventilator 28 06/23/17 21:11 90 34 28 06/23/17 21:00 98 30 138/97 100 Mechanical Ventilator 28 06/23/17 20:00 99.1 113 33 117/73 98 Mechanical Ventilator 28 06/23/17 20:00 114 06/23/17 20:00 28 06/23/17 19:13 94 20 117/73 100 Mechanical Ventilator 28 06/23/17 19:06 91 20 28 Intake and Output 06/23/17 06/24/17 19:00 07:00 Intake Total 537.5 ml 2280.0 ml Output Total 691 ml 1435 ml Balance -153.5 ml 845.0 ml Intake Free Water 120 ml IV Total 127.5 ml 1510.0 ml Tube Feeding 410 ml 650 ml Output Urine Total 691 ml 1435 ml # Bowel Movements 52 Height (Feet): 5 Height (Inches): 7.00 Weight (Pounds): 118 Objective Thin AA man NCAT supple CTA RR soft NT ND no edema DARIELA NAVA Jun 24, 2017 18:04
--- NOTE | 2017-06-24 19:31 | Infectious Diseases Prog Note ---
Assessment/Plan Problems: (1) Pneumonia Assessment & Plan: suspect aspiration due to altered mental status , continue zosyn and clindamycin empiric coverage , repeated CXR showed persistent opacification .sputum culture is pending . (2) Sepsis Assessment & Plan: due to the above, blood culture is negative , continue zosyn and clindamycin empirically (3) Pancreatitis Assessment & Plan: suspect due to alcohol abuse, monitor lipase, continue tube feeding , GI is following (4) DKA (diabetic ketoacidosis) Assessment & Plan: improved, S/P insulin drip ,continue close monitor of blood glucose , avoid hypoglycemia . (5) Fever Assessment & Plan: resolved , suspect due to the above , continue tylenol empirically, monitor culture (6) Cardiopulmonary arrest Assessment & Plan: intubated on mechanical ventilation , monitor ABG, cardiology and pulmonary team are following (7) Anoxic cerebral edema Assessment & Plan: with no improvement, neurology is following , has poor prognosis , may need tracheostomy, and PEG tube placement Subjective ROS Limited/Unobtainable: Yes Allergies: Coded Allergies: No Known Allergies (Unverified , 06/15/17) Subjective he is still intubated on mechanical ventilation , comfortable, unresponsive , blinks spontaneously and when I tried to open his eyes , afebrile, no diarrhea or significant secretions . making good urine . Objective Vital Signs Last 24 Hour Vital Signs Date Time Temp Pulse Resp B/P (MAP) Pulse Ox O2 Delivery O2 Flow Rate FiO2 06/24/17 19:00 100 22 152/96 100 Mechanical Ventilator 28 06/24/17 18:00 80 22 155/98 100 Mechanical Ventilator 06/24/17 17:19 115 29 06/24/17 17:00 112 22 153/92 100 Mechanical Ventilator 28 06/24/17 16:00 28 06/24/17 16:00 98.9 112 22 152/95 100 Mechanical Ventilator 28 06/24/17 16:00 119 06/24/17 15:04 120 33 28 06/24/17 15:00 114 25 168/94 100 Mechanical Ventilator 28 06/24/17 14:00 120 20 168/104 100 Mechanical Ventilator 28 06/24/17 13:19 124 35 28 06/24/17 13:00 112 31 169/101 100 Mechanical Ventilator 28 06/24/17 12:00 28 06/24/17 12:00 98.5 102 23 137/81 100 Mechanical Ventilator 28 06/24/17 12:00 90 06/24/17 11:13 105 46 28 06/24/17 11:00 84 22 143/94 100 Mechanical Ventilator 28 06/24/17 10:00 86 20 134/83 100 Mechanical Ventilator 28 06/24/17 09:28 130 38 28 06/24/17 09:00 111 33 172/103 100 Mechanical Ventilator 28 06/24/17 08:00 28 06/24/17 08:00 113 06/24/17 07:00 85 20 117/67 100 Mechanical Ventilator 28 06/24/17 06:47 122 33 28 06/24/17 06:00 108 20 138/83 98 Mechanical Ventilator 28 06/24/17 05:02 73 20 28 06/24/17 05:00 114 20 136/86 98 Mechanical Ventilator 28 06/24/17 04:00 103 06/24/17 04:00 28 06/24/17 04:00 99.4 80 20 142/92 100 Mechanical Ventilator 28 06/24/17 03:00 96 20 151/116 98 Mechanical Ventilator 28 06/24/17 03:00 84 20 28 06/24/17 02:00 93 20 151/116 98 Mechanical Ventilator 28 06/24/17 01:24 81 20 28 06/24/17 01:00 91 20 110/58 100 Mechanical Ventilator 28 06/24/17 00:00 99.9 82 20 106/60 100 Mechanical Ventilator 28 06/24/17 00:00 88 06/23/17 23:20 77 20 28 06/23/17 23:00 82 20 117/69 100 Mechanical Ventilator 28 06/23/17 22:00 88 24 157/78 99 Mechanical Ventilator 28 06/23/17 21:11 90 34 28 06/23/17 21:00 98 30 138/97 100 Mechanical Ventilator 28 06/23/17 20:00 99.1 113 33 117/73 98 Mechanical Ventilator 28 06/23/17 20:00 114 06/23/17 20:00 28 Height (Feet): 5 Height (Inches): 7.00 Weight (Pounds): 118 General Appearance: WD/WN, no acute distress HEENT: normocephalic, atraumatic, anicteric, mucous membranes moist, PERRL, supple, no JVD Respiratory/Chest: chest wall non-tender, normal breath sounds, no respiratory distress, no accessory muscle use, decreased breath sounds, crackles/rales Cardiovascular: normal peripheral pulses, normal rate, regular rhythm, no gallop/murmur, no JVD Abdomen: normal bowel sounds, soft, non tender, no organomegaly, non distended , no mass, no scars Genitourinary: normal external genitalia Extremities: no cyanosis, no clubbing Skin: no rash, no lesions, no ulcers Neurologic/Psychiatric: alert, unresponsiveness Microbiology Date/Time Source Procedure Growth Status 06/22/17 14:50 Sputum Expectorated Gram Stain - Final Complete 06/22/17 14:50 Sputum Expectorated Sputum Culture - Final NORMAL UPPER RESPIRATORY OSWALDO PRESENT Complete Current Medications Medications (Trade) Dose Ordered Sig/Conrado Route PRN Reason Start Time Stop Time Status Last Admin Dose Admin Acetaminophen (Tylenol) 650 mg Q4H PRN ORAL Mild Pain/Temp > 100.5 06/16/17 17:45 07/16/17 13:44 06/18/17 00:42 Atropine Sulfate (Atropine 1mg/ml Inj) 0.5 mg EVERY HOUR PRN IVP HR<35 BPM 06/16/17 16:15 07/16/17 16:14 Clindamycin HCl/ Dextrose 50 ml @ 100 mls/hr Q8HR IV 06/22/17 16:00 06/29/17 15:59 06/24/17 14:36 Clonidine HCl (Catapres Tab) 0.1 mg Q2H PRN ORAL SBP Greater than 170 06/18/17 12:30 07/18/17 12:29 06/22/17 20:54 Dextrose (Dextrose 50%) STAT PRN IV Hypoglycemia 06/17/17 08:15 07/17/17 08:14 06/18/17 05:25 Insulin Aspart (NovoLOG) EVERY 4 HOURS SUBQ 06/17/17 09:00 07/17/17 08:59 06/24/17 17:27 Insulin Detemir (Levemir) 16 units Q12HR SUBQ 06/24/17 21:00 07/24/17 20:59 Lansoprazole (Prevacid) 30 mg DAILY NG 06/22/17 09:00 07/22/17 08:59 06/24/17 08:45 Ondansetron HCl (Zofran) 4 mg Q6H PRN IVP Nausea & Vomiting 06/16/17 19:00 07/16/17 00:59 Piperacillin Sod/ Tazobactam Sod 3.375 gm/Dextrose 110 ml @ 27.5 mls/hr Q8H IVPB 06/16/17 17:00 06/29/17 16:59 06/24/17 17:26 Potassium Chloride 40 meq/ Dextrose 1,020 ml @ 100 mls/hr [id number] IV 06/20/17 18:00 07/20/17 17:59 06/24/17 12:57 Saad Cummings M.D. Jun 24, 2017 19:31
[2017-06-25] VITALS (24 sets, daily range): BP systolic 106–159; BP diastolic 39–116
[2017-06-25] MEDS: Piperacillin/Tazobactam 3.375 GM in D5W 110 ML IVPB SCH ×3 (00:48→17:17)
[2017-06-25] MEDS: NovoLOG Insulin Flexpen SUBQ SCH ×6 (02:27→20:40)
[2017-06-25] MEDS: Clindamycin 600mg 50 ML IV SCH ×2 (06:54→13:32)
[2017-06-25] MEDS: Levemir Flexpen SUBQ SCH ×2 (08:20→20:39)
--- NOTE | 2017-06-25 08:48 | Diagnostic Imaging Report ---
Indication: NG tube confirmation Technique: XRAY Abdomen 1v Comparison: Chest x-ray 06/22/2017 Findings: NG tube tip and side-port within the stomach. Nonspecific bowel gas pattern with gaseous distention of some small and large bowel loops. No acute osseous abnormality seen. Impression: NG tube in the stomach. This corresponds with the [facility] preliminary report.
--- NOTE | 2017-06-25 12:07 | Cardiac Electrophysiology PN ---
Assessment/Plan Assessment/Plan 1. Troponin leak. Levels are flat and likely due to renal failure. The creatinine of 3.5. Echocardiogram EF60% 2. Tachycardia due to diabetic ketoacidosis and sepsis. 3. Respiratory failure on Vent 4. Pneumonia, on vancomycin and Zosyn per Dr. Cummings. 5. Pancreatitis. NPO on ivf 6. ARF Cr 3.5, now down to 2.4 7. Marijuana use. 8. Suspect diffuse cerebral anoxia and edema with decorticate rigidity per Dr Cano. 9. Alcohol withdrawal. DW RN and Aunt at bedside. Subjective Subjective In ICU on vent.No arrhythmias. Unresponsive off pressors. Showing decorticate rigidity. RN and aunt at bedside. Objective Last 24 Hour Vital Signs Date Time Temp Pulse Resp B/P (MAP) Pulse Ox O2 Delivery O2 Flow Rate FiO2 06/25/17 11:01 94 25 28 06/25/17 11:00 90 20 150/92 100 Mechanical Ventilator 28 06/25/17 11:00 28 06/25/17 10:00 101 26 141/99 100 Mechanical Ventilator 28 06/25/17 09:40 89 21 28 06/25/17 09:00 88 23 139/81 100 Mechanical Ventilator 28 06/25/17 08:00 98.4 96 23 136/86 100 Mechanical Ventilator 06/25/17 08:00 95 06/25/17 08:00 28 06/25/17 07:17 100 21 28 06/25/17 07:00 96 21 130/91 99 Mechanical Ventilator 28 06/25/17 06:00 99 22 141/86 99 Mechanical Ventilator 28 06/25/17 05:30 103 31 28 06/25/17 05:00 98.9 94 20 159/88 100 Mechanical Ventilator 28 06/25/17 04:00 28 06/25/17 04:00 103 06/25/17 04:00 100.2 91 20 149/39 100 Mechanical Ventilator 28 06/25/17 03:30 90 28 28 06/25/17 03:00 91 20 106/45 100 Mechanical Ventilator 28 06/25/17 02:00 91 20 140/83 100 Mechanical Ventilator 28 06/25/17 01:30 94 30 28 06/25/17 01:00 91 26 144/83 100 Mechanical Ventilator 28 06/25/17 00:00 102 06/25/17 00:00 99.0 102 26 143/84 100 Mechanical Ventilator 28 06/25/17 00:00 28 06/24/17 23:00 102 26 141/86 100 Mechanical Ventilator 28 06/24/17 22:51 101 28 28 06/24/17 22:00 102 20 145/84 100 Mechanical Ventilator 28 06/24/17 21:30 96 24 28 06/24/17 21:00 95 20 148/84 100 Mechanical Ventilator 28 06/24/17 20:00 99.3 95 20 145/80 100 Mechanical Ventilator 28 06/24/17 20:00 100 06/24/17 19:30 92 20 28 06/24/17 19:00 100 22 152/96 100 Mechanical Ventilator 28 06/24/17 18:00 80 22 155/98 100 Mechanical Ventilator 28 06/24/17 17:19 115 29 28 06/24/17 17:00 112 22 153/92 100 Mechanical Ventilator 28 06/24/17 16:00 28 06/24/17 16:00 98.9 112 22 152/95 100 Mechanical Ventilator 28 06/24/17 16:00 119 06/24/17 15:04 120 33 28 06/24/17 15:00 114 25 168/94 100 Mechanical Ventilator 28 06/24/17 14:00 120 20 168/104 100 Mechanical Ventilator 28 06/24/17 13:19 124 35 28 06/24/17 13:00 112 31 169/101 100 Mechanical Ventilator 28 Intake and Output 06/24/17 06/25/17 19:00 07:00 Intake Total 1520.0 ml 1840 ml Output Total 1140 ml 1545 ml Balance 380.0 ml 295 ml Intake Free Water 90 ml IV Total 870.0 ml 1200 ml Tube Feeding 600 ml 550 ml Other 50 ml Output Urine Total 1140 ml 1465 ml Stool Total 80 ml Microbiology Date/Time Source Procedure Growth Status 06/22/17 14:50 Sputum Expectorated Gram Stain - Final Complete 06/22/17 14:50 Sputum Expectorated Sputum Culture - Final NORMAL UPPER RESPIRATORY OSWALDO PRESENT Complete Objective HEAD AND NECK: No JVD.Orally intubated. OG tube in LUNGS: Clear. CARDIOVASCULAR: Regular S1 and S2 with no gallop or murmur. ABDOMEN: Soft and nontender. EXTREMITIES: No pitting edema. ALBERT ROWAN Jun 25, 2017 12:07
--- NOTE | 2017-06-25 12:24 | Pulmonology Progress Note ---
Assessment/Plan Assessment/Plan IMPRESSION: 1. Respiratory failure 2. Cannabis usage. 3. Diabetic ketoacidosis. 4. Troponin leak. 5. Tachycardia. 6. AMS; suspect anoxic brain injury DISCUSSION: Agree with present management and care. continue vent settings to AC of 20, tidal volume 550, FiO2 80%. Ammonia is normal Reviewed neurology notes Continue vent/ AC mode Apparently had received sedation Ativan few nights ago; asked RN to DC Subjective Interval Events: having decerebrate movements. Constitutional: Reports: no symptoms HEENT: Repors: no symptoms Respiratory: Reports: no symptoms Cardiovascular: Reports: no symptoms Gastrointestinal/Abdominal: Reports: no symptoms Allergies: Coded Allergies: No Known Allergies (Unverified , 06/15/17) Objective Last 24 Hour Vital Signs Date Time Temp Pulse Resp B/P (MAP) Pulse Ox O2 Delivery O2 Flow Rate FiO2 06/25/17 11:01 94 25 28 06/25/17 11:00 90 20 150/92 100 Mechanical Ventilator 28 06/25/17 11:00 28 06/25/17 10:00 101 26 141/99 100 Mechanical Ventilator 28 06/25/17 09:40 89 21 28 06/25/17 09:00 88 23 139/81 100 Mechanical Ventilator 28 06/25/17 08:00 98.4 96 23 136/86 100 Mechanical Ventilator 28 06/25/17 08:00 95 06/25/17 08:00 28 06/25/17 07:17 100 21 28 06/25/17 07:00 96 21 130/91 99 Mechanical Ventilator 28 06/25/17 06:00 99 22 141/86 99 Mechanical Ventilator 28 06/25/17 05:30 103 31 28 06/25/17 05:00 98.9 94 20 159/88 100 Mechanical Ventilator 28 06/25/17 04:00 28 06/25/17 04:00 103 06/25/17 04:00 100.2 91 20 149/39 100 Mechanical Ventilator 28 06/25/17 03:30 90 28 28 06/25/17 03:00 91 20 106/45 100 Mechanical Ventilator 28 06/25/17 02:00 91 20 140/83 100 Mechanical Ventilator 28 06/25/17 01:30 94 30 28 06/25/17 01:00 91 26 144/83 100 Mechanical Ventilator 28 06/25/17 00:00 102 06/25/17 00:00 99.0 102 26 143/84 100 Mechanical Ventilator 28 06/25/17 00:00 28 06/24/17 23:00 102 26 141/86 100 Mechanical Ventilator 28 06/24/17 22:51 101 28 28 06/24/17 22:00 102 20 145/84 100 Mechanical Ventilator 28 06/24/17 21:30 96 24 28 06/24/17 21:00 95 20 148/84 100 Mechanical Ventilator 28 06/24/17 20:00 99.3 95 20 145/80 100 Mechanical Ventilator 28 06/24/17 20:00 100 06/24/17 19:30 92 20 28 06/24/17 19:00 100 22 152/96 100 Mechanical Ventilator 28 06/24/17 18:00 80 22 155/98 100 Mechanical Ventilator 28 06/24/17 17:19 115 29 28 06/24/17 17:00 112 22 153/92 100 Mechanical Ventilator 28 06/24/17 16:00 28 06/24/17 16:00 98.9 112 22 152/95 100 Mechanical Ventilator 28 06/24/17 16:00 119 06/24/17 15:04 120 33 28 06/24/17 15:00 114 25 168/94 100 Mechanical Ventilator 28 06/24/17 14:00 120 20 168/104 100 Mechanical Ventilator 28 06/24/17 13:19 124 35 28 06/24/17 13:00 112 31 169/101 100 Mechanical Ventilator 28 Intake and Output 06/24/17 06/25/17 19:00 07:00 Intake Total 1520.0 ml 1840 ml Output Total 1140 ml 1545 ml Balance 380.0 ml 295 ml Intake Free Water 90 ml IV Total 870.0 ml 1200 ml Tube Feeding 600 ml 550 ml Other 50 ml Output Urine Total 1140 ml 1465 ml Stool Total 80 ml General Appearance: no acute distress HEENT: normocephalic Respiratory/Chest: chest wall non-tender, lungs clear Cardiovascular: normal peripheral pulses, normal rate Microbiology Date/Time Source Procedure Growth Status 06/22/17 14:50 Sputum Expectorated Gram Stain - Final Complete 06/22/17 14:50 Sputum Expectorated Sputum Culture - Final NORMAL UPPER RESPIRATORY OSWALDO PRESENT Complete Current Medications Medications (Trade) Dose Ordered Sig/Conrado Route PRN Reason Start Time Stop Time Status Last Admin Dose Admin Acetaminophen (Tylenol) 650 mg Q4H PRN ORAL Mild Pain/Temp > 100.5 06/16/17 17:45 07/16/17 13:44 06/18/17 00:42 Atropine Sulfate (Atropine 1mg/ml Inj) 0.5 mg EVERY HOUR PRN IVP HR<35 BPM 06/16/17 16:15 07/16/17 16:14 Clindamycin HCl/ Dextrose 50 ml @ 100 mls/hr Q8HR IV 06/22/17 16:00 06/29/17 15:59 06/25/17 06:54 Clonidine HCl (Catapres Tab) 0.1 mg Q2H PRN ORAL SBP Greater than 170 06/18/17 12:30 07/18/17 12:29 06/22/17 20:54 Dextrose (Dextrose 50%) STAT PRN IV Hypoglycemia 06/17/17 08:15 07/17/17 08:14 06/18/17 05:25 Insulin Aspart (NovoLOG) EVERY 4 HOURS SUBQ 06/17/17 09:00 07/17/17 08:59 06/25/17 08:19 Insulin Detemir (Levemir) 16 units Q12HR SUBQ 06/24/17 21:00 07/24/17 20:59 06/25/17 08:20 Lansoprazole (Prevacid) 30 mg DAILY NG 06/22/17 09:00 07/22/17 08:59 06/25/17 08:09 Ondansetron HCl (Zofran) 4 mg Q6H PRN IVP Nausea & Vomiting 06/16/17 19:00 07/16/17 00:59 Piperacillin Sod/ Tazobactam Sod 3.375 gm/Dextrose 110 ml @ 27.5 mls/hr Q8H IVPB 06/16/17 17:00 06/29/17 16:59 06/25/17 08:09 Potassium Chloride 40 meq/ Dextrose 1,020 ml @ 100 mls/hr [id number] IV 06/20/17 18:00 07/20/17 17:59 06/25/17 10:12 Paulo Floyd MD Jun 25, 2017 12:24
--- NOTE | 2017-06-25 13:53 | GI Progress Note ---
Assessment/Plan Problems: (1) Shock liver ICD Codes: K72.00 - Acute and subacute hepatic failure without coma SNOMED: 239048536 (2) Anoxic cerebral edema ICD Codes: G93.6 - Cerebral edema; R09.02 - Hypoxemia SNOMED: 1758425, 875677990 (3) Transaminitis ICD Codes: R74.0 - Nonspecific elevation of levels of transaminase and lactic acid dehydrogenase [LDH] SNOMED: 783610067, 277442150 (4) Alcohol withdrawal ICD Codes: F10.239 - Alcohol dependence with withdrawal, unspecified SNOMED: 602731834 (5) Pancreatitis ICD Codes: K85.90 - Acute pancreatitis without necrosis or infection, unspecified SNOMED: 82968336 Status: stable Status Narrative Discussed with Dr. Rico. Assessment/Plan head CT reviewed >> Suspect diffuse cerebral anoxia and edema. utox positive marijuana macrocytic hyperchromic anemia OB stool positive rising LFTs >> shocked liver defer GI procedures at this time, respiratory status not stable DM mgmt electrolyte correction follow lipase ppi BID hold iron supplementation given elevated ferritin monitor H&H, prn transfusions fu labs adv TFs Subjective Subjective limited Objective Last 24 Hour Vital Signs Date Time Temp Pulse Resp B/P (MAP) Pulse Ox O2 Delivery O2 Flow Rate FiO2 06/25/17 13:20 88 23 28 06/25/17 13:00 94 18 158/88 100 Mechanical Ventilator 28 06/25/17 12:00 98.6 102 20 147/80 100 Mechanical Ventilator 28 06/25/17 11:01 94 25 28 06/25/17 11:00 90 20 150/92 100 Mechanical Ventilator 28 06/25/17 11:00 28 06/25/17 10:00 101 26 141/99 100 Mechanical Ventilator 28 06/25/17 09:40 89 21 28 06/25/17 09:00 88 23 139/81 100 Mechanical Ventilator 28 06/25/17 08:00 98.4 96 23 136/86 100 Mechanical Ventilator 28 06/25/17 08:00 95 06/25/17 08:00 28 06/25/17 07:17 100 21 28 06/25/17 07:00 96 21 130/91 99 Mechanical Ventilator 28 06/25/17 06:00 99 22 141/86 99 Mechanical Ventilator 28 06/25/17 05:30 103 31 28 06/25/17 05:00 98.9 94 20 159/88 100 Mechanical Ventilator 28 06/25/17 04:00 28 06/25/17 04:00 103 06/25/17 04:00 100.2 91 20 149/39 100 Mechanical Ventilator 28 06/25/17 03:30 90 28 28 06/25/17 03:00 91 20 106/45 100 Mechanical Ventilator 28 06/25/17 02:00 91 20 140/83 100 Mechanical Ventilator 28 06/25/17 01:30 94 30 28 06/25/17 01:00 91 26 144/83 100 Mechanical Ventilator 28 06/25/17 00:00 102 06/25/17 00:00 99.0 102 26 143/84 100 Mechanical Ventilator 28 06/25/17 00:00 28 06/24/17 23:00 102 26 141/86 100 Mechanical Ventilator 28 06/24/17 22:51 101 28 28 06/24/17 22:00 102 20 145/84 100 Mechanical Ventilator 28 06/24/17 21:30 96 24 28 06/24/17 21:00 95 20 148/84 100 Mechanical Ventilator 28 06/24/17 20:00 99.3 95 20 145/80 100 Mechanical Ventilator 28 06/24/17 20:00 100 06/24/17 19:30 92 20 28 06/24/17 19:00 100 22 152/96 100 Mechanical Ventilator 28 06/24/17 18:00 80 22 155/98 100 Mechanical Ventilator 28 06/24/17 17:19 115 29 28 06/24/17 17:00 112 22 153/92 100 Mechanical Ventilator 28 06/24/17 16:00 28 06/24/17 16:00 98.9 112 22 152/95 100 Mechanical Ventilator 28 06/24/17 16:00 119 06/24/17 15:04 120 33 28 06/24/17 15:00 114 25 168/94 100 Mechanical Ventilator 28 06/24/17 14:00 120 20 168/104 100 Mechanical Ventilator 28 Intake and Output 06/24/17 06/25/17 19:00 07:00 Intake Total 1520.0 ml 1840 ml Output Total 1140 ml 1545 ml Balance 380.0 ml 295 ml Intake Free Water 90 ml IV Total 870.0 ml 1200 ml Tube Feeding 600 ml 550 ml Other 50 ml Output Urine Total 1140 ml 1465 ml Stool Total 80 ml Height (Feet): 5 Height (Inches): 7.00 Weight (Pounds): 115 General Appearance: no apparent distress, thin Cardiovascular: normal rate Respiratory/Chest: normal breath sounds, no respiratory distress, other - mech vent Abdominal Exam: normal bowel sounds, non tender, soft, other - NGT Extremities: non-tender Lashawn Mason N.P. Jun 25, 2017 13:53
--- NOTE | 2017-06-25 14:46 | Infectious Diseases Prog Note ---
Assessment/Plan Problems: (1) Pneumonia Assessment & Plan: suspect aspiration due to altered mental status , continue zosyn and switch clindamycin to ceftaroline empiric coverage since he developed diarrhea today , repeated CXR showed persistent opacification .sputum culture is pending . (2) Sepsis Assessment & Plan: due to the above, blood culture is negative , continue zosyn and switch clindamycin to ceftaroline empirically (3) Pancreatitis Assessment & Plan: suspect due to alcohol abuse, monitor lipase, continue tube feeding , GI is following (4) DKA (diabetic ketoacidosis) Assessment & Plan: improved, S/P insulin drip ,continue close monitor of blood glucose , avoid hypoglycemia . (5) Fever Assessment & Plan: suspect due to the above , continue tylenol empirically, monitor culture (6) Cardiopulmonary arrest Assessment & Plan: intubated on mechanical ventilation , monitor ABG, cardiology and pulmonary team are following (7) Anoxic cerebral edema Assessment & Plan: with no improvement, neurology is following , has poor prognosis , may need tracheostomy, and PEG tube placement Subjective ROS Limited/Unobtainable: Yes Allergies: Coded Allergies: No Known Allergies (Unverified , 06/15/17) Subjective he is still intubated on mechanical ventilation , unresponsive and postural and spastic in the lower extremities , dosen't blinks spontaneously , afebrile, had diarrhea , no significant secretions . making good urine . Objective Vital Signs Last 24 Hour Vital Signs Date Time Temp Pulse Resp B/P (MAP) Pulse Ox O2 Delivery O2 Flow Rate FiO2 06/25/17 13:20 88 23 28 06/25/17 13:00 94 18 158/88 100 Mechanical Ventilator 06/25/17 12:00 98.6 102 20 147/80 100 Mechanical Ventilator 06/25/17 11:01 94 25 28 06/25/17 11:00 90 20 150/92 100 Mechanical Ventilator 28 06/25/17 11:00 28 06/25/17 10:00 101 26 141/99 100 Mechanical Ventilator 06/25/17 09:40 89 21 28 06/25/17 09:00 88 23 139/81 100 Mechanical Ventilator 28 06/25/17 08:00 98.4 96 23 136/86 100 Mechanical Ventilator 06/25/17 08:00 95 06/25/17 08:00 28 06/25/17 07:17 100 21 28 06/25/17 07:00 96 21 130/91 99 Mechanical Ventilator 28 06/25/17 06:00 99 22 141/86 99 Mechanical Ventilator 28 06/25/17 05:30 103 31 28 06/25/17 05:00 98.9 94 20 159/88 100 Mechanical Ventilator 28 06/25/17 04:00 28 06/25/17 04:00 103 06/25/17 04:00 100.2 91 20 149/39 100 Mechanical Ventilator 28 06/25/17 03:30 90 28 28 06/25/17 03:00 91 20 106/45 100 Mechanical Ventilator 28 06/25/17 02:00 91 20 140/83 100 Mechanical Ventilator 28 06/25/17 01:30 94 30 28 06/25/17 01:00 91 26 144/83 100 Mechanical Ventilator 28 06/25/17 00:00 102 06/25/17 00:00 99.0 102 26 143/84 100 Mechanical Ventilator 28 06/25/17 00:00 28 06/24/17 23:00 102 26 141/86 100 Mechanical Ventilator 28 06/24/17 22:51 101 28 28 06/24/17 22:00 102 20 145/84 100 Mechanical Ventilator 28 06/24/17 21:30 96 24 28 06/24/17 21:00 95 20 148/84 100 Mechanical Ventilator 28 06/24/17 20:00 99.3 95 20 145/80 100 Mechanical Ventilator 28 06/24/17 20:00 100 06/24/17 19:30 92 20 28 06/24/17 19:00 100 22 152/96 100 Mechanical Ventilator 28 06/24/17 18:00 80 22 155/98 100 Mechanical Ventilator 28 06/24/17 17:19 115 29 28 06/24/17 17:00 112 22 153/92 100 Mechanical Ventilator 28 06/24/17 16:00 28 06/24/17 16:00 98.9 112 22 152/95 100 Mechanical Ventilator 28 06/24/17 16:00 119 06/24/17 15:04 120 33 28 06/24/17 15:00 114 25 168/94 100 Mechanical Ventilator 28 Height (Feet): 5 Height (Inches): 7.00 Weight (Pounds): 115 General Appearance: WD/WN, no acute distress HEENT: normocephalic, atraumatic, anicteric, mucous membranes moist, other - pin points pupils Respiratory/Chest: normal breath sounds, no respiratory distress, no accessory muscle use, decreased breath sounds, crackles/rales Cardiovascular: normal peripheral pulses, normal rate, regular rhythm, no gallop/murmur, no JVD Abdomen: normal bowel sounds, soft, non tender, no organomegaly, non distended , no mass, no scars Extremities: no cyanosis, no clubbing Skin: no rash, no lesions, no ulcers Neurologic/Psychiatric: unresponsiveness, aphasia Lymphatic: no neck adenopathy, no groin adenopathy Musculoskeletal: normal muscle bulk Microbiology Date/Time Source Procedure Growth Status 06/22/17 14:50 Sputum Expectorated Gram Stain - Final Complete 06/22/17 14:50 Sputum Expectorated Sputum Culture - Final NORMAL UPPER RESPIRATORY OSWALDO PRESENT Complete Current Medications Medications (Trade) Dose Ordered Sig/Conrado Route PRN Reason Start Time Stop Time Status Last Admin Dose Admin Acetaminophen (Tylenol) 650 mg Q4H PRN ORAL Mild Pain/Temp > 100.5 06/16/17 17:45 07/16/17 13:44 06/18/17 00:42 Atropine Sulfate (Atropine 1mg/ml Inj) 0.5 mg EVERY HOUR PRN IVP HR<35 BPM 06/16/17 16:15 07/16/17 16:14 Clindamycin HCl/ Dextrose 50 ml @ 100 mls/hr Q8HR IV 06/22/17 16:00 06/29/17 15:59 06/25/17 13:32 Clonidine HCl (Catapres Tab) 0.1 mg Q2H PRN ORAL SBP Greater than 170 06/18/17 12:30 07/18/17 12:29 06/22/17 20:54 Dextrose (Dextrose 50%) STAT PRN IV Hypoglycemia 06/17/17 08:15 07/17/17 08:14 06/18/17 05:25 Insulin Aspart (NovoLOG) EVERY 4 HOURS SUBQ 06/17/17 09:00 07/17/17 08:59 06/25/17 13:26 Insulin Detemir (Levemir) 16 units Q12HR SUBQ 06/24/17 21:00 07/24/17 20:59 06/25/17 08:20 Lansoprazole (Prevacid) 30 mg DAILY NG 06/22/17 09:00 07/22/17 08:59 06/25/17 08:09 Ondansetron HCl (Zofran) 4 mg Q6H PRN IVP Nausea & Vomiting 06/16/17 19:00 07/16/17 00:59 Piperacillin Sod/ Tazobactam Sod 3.375 gm/Dextrose 110 ml @ 27.5 mls/hr Q8H IVPB 06/16/17 17:00 06/29/17 16:59 06/25/17 08:09 Potassium Chloride 40 meq/ Dextrose 1,020 ml @ 100 mls/hr [id number] IV 06/20/17 18:00 07/20/17 17:59 06/25/17 10:12 Saad Cummings M.D. Jun 25, 2017 14:46
[2017-06-25] MEDS ORDERED: Ceftaroline 300 MG in NS 55 ML IVPB SCH (16:00)
[2017-06-25] MEDS: Ceftaroline 300 MG in NS 55 ML IVPB SCH (17:18)
--- NOTE | 2017-06-25 17:23 | General Progress Note ---
Assessment/Plan Problem List: (1) DKA (diabetic ketoacidosis) ICD Codes: E13.10 - Other specified diabetes mellitus with ketoacidosis without coma SNOMED: 56579121, 584554600 Qualifiers: Qualified Codes: E10.11 - Type 1 diabetes mellitus with ketoacidosis with coma (2) Metabolic acidosis ICD Codes: E87.2 - Acidosis SNOMED: 16422964 (3) Cardiopulmonary arrest ICD Codes: I46.9 - Cardiac arrest, cause unspecified SNOMED: 256652606 Assessment/Plan increase Levemir to 20 units bid continue Novolog isliding scale Subjective ROS Limited/Unobtainable: Yes Allergies: Coded Allergies: No Known Allergies (Unverified , 06/15/17) Subjective events noted Objective Last 24 Hour Vital Signs Date Time Temp Pulse Resp B/P (MAP) Pulse Ox O2 Delivery O2 Flow Rate FiO2 06/25/17 15:21 98 25 28 06/25/17 15:00 90 27 153/96 100 Mechanical Ventilator 28 06/25/17 14:00 98 18 125/75 100 Mechanical Ventilator 28 06/25/17 13:20 88 23 28 06/25/17 13:00 94 18 158/88 100 Mechanical Ventilator 28 06/25/17 12:00 82 06/25/17 12:00 98.6 102 20 147/80 100 Mechanical Ventilator 28 06/25/17 11:01 94 25 28 06/25/17 11:00 90 20 150/92 100 Mechanical Ventilator 28 06/25/17 11:00 28 06/25/17 10:00 101 26 141/99 100 Mechanical Ventilator 28 06/25/17 09:40 89 21 28 06/25/17 09:00 88 23 139/81 100 Mechanical Ventilator 28 06/25/17 08:00 98.4 96 23 136/86 100 Mechanical Ventilator 28 06/25/17 08:00 95 06/25/17 08:00 28 06/25/17 07:17 100 21 28 06/25/17 07:00 96 21 130/91 99 Mechanical Ventilator 28 06/25/17 06:00 99 22 141/86 99 Mechanical Ventilator 28 06/25/17 05:30 103 31 28 06/25/17 05:00 98.9 94 20 159/88 100 Mechanical Ventilator 28 06/25/17 04:00 28 06/25/17 04:00 103 06/25/17 04:00 100.2 91 20 149/39 100 Mechanical Ventilator 28 06/25/17 03:30 90 28 28 06/25/17 03:00 91 20 106/45 100 Mechanical Ventilator 28 06/25/17 02:00 91 20 140/83 100 Mechanical Ventilator 28 06/25/17 01:30 94 30 28 06/25/17 01:00 91 26 144/83 100 Mechanical Ventilator 28 06/25/17 00:00 102 06/25/17 00:00 99.0 102 26 143/84 100 Mechanical Ventilator 28 06/25/17 00:00 28 06/24/17 23:00 102 26 141/86 100 Mechanical Ventilator 28 06/24/17 22:51 101 28 28 06/24/17 22:00 102 20 145/84 100 Mechanical Ventilator 28 06/24/17 21:30 96 24 28 06/24/17 21:00 95 20 148/84 100 Mechanical Ventilator 28 06/24/17 20:00 99.3 95 20 145/80 100 Mechanical Ventilator 28 06/24/17 20:00 100 06/24/17 19:30 92 20 28 06/24/17 19:00 100 22 152/96 100 Mechanical Ventilator 28 06/24/17 18:00 80 22 155/98 100 Mechanical Ventilator 28 Intake and Output 06/24/17 06/25/17 19:00 07:00 Intake Total 1520.0 ml 1840 ml Output Total 1140 ml 1545 ml Balance 380.0 ml 295 ml Intake Free Water 90 ml IV Total 870.0 ml 1200 ml Tube Feeding 600 ml 550 ml Other 50 ml Output Urine Total 1140 ml 1465 ml Stool Total 80 ml Height (Feet): 5 Height (Inches): 7.00 Weight (Pounds): 115 General Appearance: severe distress Neck: normal alignment Cardiovascular: tachycardia Respiratory/Chest: decreased breath sounds Abdomen: normal bowel sounds Edema: 1+ Arm (L), 1+ Arm (R), 1+ Leg (L), 1+ Leg (R), 1+ Pedal (L), 1+ Pedal ( R), 1+ Generalized Objective Current Medications Medications (Trade) Dose Ordered Sig/Conrado Route PRN Reason Start Time Stop Time Status Last Admin Dose Admin Acetaminophen (Tylenol) 650 mg Q4H PRN ORAL Mild Pain/Temp > 100.5 06/16/17 17:45 07/16/17 13:44 06/18/17 00:42 Atropine Sulfate (Atropine 1mg/ml Inj) 0.5 mg EVERY HOUR PRN IVP HR<35 BPM 06/16/17 16:15 07/16/17 16:14 Ceftaroline Fosamil 300 mg/ Sodium Chloride 55 ml @ 55 mls/hr 08,1999 IVPB 06/25/17 16:30 07/02/17 16:29 06/25/17 17:18 Clonidine HCl (Catapres Tab) 0.1 mg Q2H PRN ORAL SBP Greater than 170 06/18/17 12:30 07/18/17 12:29 06/22/17 20:54 Dextrose (Dextrose 50%) STAT PRN IV Hypoglycemia 06/17/17 08:15 07/17/17 08:14 06/18/17 05:25 Insulin Aspart (NovoLOG) EVERY 4 HOURS SUBQ 06/17/17 09:00 07/17/17 08:59 06/25/17 13:26 Insulin Detemir (Levemir) 16 units Q12HR SUBQ 06/24/17 21:00 07/24/17 20:59 06/25/17 08:20 Lansoprazole (Prevacid) 30 mg DAILY NG 06/22/17 09:00 07/22/17 08:59 06/25/17 08:09 Ondansetron HCl (Zofran) 4 mg Q6H PRN IVP Nausea & Vomiting 06/16/17 19:00 07/16/17 00:59 Piperacillin Sod/ Tazobactam Sod 3.375 gm/Dextrose 110 ml @ 27.5 mls/hr Q8H IVPB 06/16/17 17:00 06/29/17 16:59 06/25/17 17:17 Potassium Chloride 40 meq/ Dextrose 1,020 ml @ 100 mls/hr [id number] IV 06/20/17 18:00 07/20/17 17:59 06/25/17 10:12 Item Value Date Time Bedside Blood Glucose 236 mg/dl H 06/25/17 1326 Bedside Blood Glucose 220 mg/dl H 06/25/17 0900 Bedside Blood Glucose 231 mg/dl H 06/25/17 0508 Bedside Blood Glucose 253 mg/dl H 06/25/17 0227 Bedside Blood Glucose 275 mg/dl H 06/24/17 210 Bedside Blood Glucose 298 mg/dl H 06/24/17 1727 Bedside Blood Glucose 271 mg/dl H 06/24/17 1425 JADIEL MARCANO Jun 25, 2017 17:23
--- NOTE | 2017-06-25 17:47 | Nephrology Progress Note ---
Assessment/Plan Problem List: (1) Hypernatremia Assessment: corrected (2) Hypokalemia Assessment: corrected (3) Fever (4) Acidosis (5) Respiratory distress (6) Pancreatitis (7) Elevated troponin (8) Alcohol withdrawal (9) Pneumonia (10) Sepsis (11) Cardiopulmonary arrest (12) Metabolic acidosis (13) DKA (diabetic ketoacidosis) Plan DNR/DNI status Continue current IVF Strict glycemic control BP control Monitor lytes, correct prn Monitor neuro status, neurology following Monitor renal function Avoid nephrotoxins Monitor for withdrawal symptoms Abx per ID F/U with consults recs AM labs Subjective ROS Limited/Unobtainable: Yes Subjective Seen in the ICU, orally intubated on vent settings, non responsive at this time , adequate urine output noted via carpenter Objective Objective Last 24 Hour Vital Signs Date Time Temp Pulse Resp B/P (MAP) Pulse Ox O2 Delivery O2 Flow Rate FiO2 06/25/17 17:35 91 23 28 06/25/17 16:00 28 06/25/17 15:21 98 25 28 06/25/17 15:00 90 27 153/96 100 Mechanical Ventilator 28 06/25/17 14:00 98 18 125/75 100 Mechanical Ventilator 28 06/25/17 13:20 88 23 28 06/25/17 13:00 94 18 158/88 100 Mechanical Ventilator 28 06/25/17 12:00 82 06/25/17 12:00 98.6 102 20 147/80 100 Mechanical Ventilator 28 06/25/17 11:01 94 25 28 06/25/17 11:00 90 20 150/92 100 Mechanical Ventilator 28 06/25/17 11:00 28 06/25/17 10:00 101 26 141/99 100 Mechanical Ventilator 28 06/25/17 09:40 89 21 28 06/25/17 09:00 88 23 139/81 100 Mechanical Ventilator 28 06/25/17 08:00 98.4 96 23 136/86 100 Mechanical Ventilator 28 06/25/17 08:00 95 06/25/17 08:00 28 06/25/17 07:17 100 21 28 06/25/17 07:00 96 21 130/91 99 Mechanical Ventilator 28 06/25/17 06:00 99 22 141/86 99 Mechanical Ventilator 28 06/25/17 05:30 103 31 28 06/25/17 05:00 98.9 94 20 159/88 100 Mechanical Ventilator 28 06/25/17 04:00 28 06/25/17 04:00 103 06/25/17 04:00 100.2 91 20 149/39 100 Mechanical Ventilator 28 06/25/17 03:30 90 28 28 06/25/17 03:00 91 20 106/45 100 Mechanical Ventilator 28 06/25/17 02:00 91 20 140/83 100 Mechanical Ventilator 28 06/25/17 01:30 94 30 28 06/25/17 01:00 91 26 144/83 100 Mechanical Ventilator 28 06/25/17 00:00 102 06/25/17 00:00 99.0 102 26 143/84 100 Mechanical Ventilator 28 06/25/17 00:00 28 06/24/17 23:00 102 26 141/86 100 Mechanical Ventilator 28 06/24/17 22:51 101 28 28 06/24/17 22:00 102 20 145/84 100 Mechanical Ventilator 28 06/24/17 21:30 96 24 28 06/24/17 21:00 95 20 148/84 100 Mechanical Ventilator 28 06/24/17 20:00 99.3 95 20 145/80 100 Mechanical Ventilator 28 06/24/17 20:00 100 06/24/17 19:30 92 20 28 06/24/17 19:00 100 22 152/96 100 Mechanical Ventilator 28 06/24/17 18:00 80 22 155/98 100 Mechanical Ventilator 28 Intake and Output 06/24/17 06/25/17 19:00 07:00 Intake Total 1520.0 ml 1840 ml Output Total 1140 ml 1545 ml Balance 380.0 ml 295 ml Intake Free Water 90 ml IV Total 870.0 ml 1200 ml Tube Feeding 600 ml 550 ml Other 50 ml Output Urine Total 1140 ml 1465 ml Stool Total 80 ml Height (Feet): 5 Height (Inches): 7.00 Weight (Pounds): 115 General Appearance: moderate distress EENT: normal ENT inspection Neck: supple Cardiovascular: no JVD Respiratory/Chest: decreased breath sounds, other - orally intubated Abdomen: soft Genitourinary/Rectal: other - carpenter Extremities: non-tender, other - rigidity Neurologic: unresponsive Hannah Johnson N.P. Jun 25, 2017 17:47
--- NOTE | 2017-06-25 18:14 | Diagnostic Imaging Report ---
Indication: Dyspnea Technique: XRAY Chest 1v Comparison: 06/22/2017 Findings: ET and NG tube unchanged in position. Heart size and mediastinal contours are stable. Stable mild interstitial opacification. No focal airspace consolidation. No pleural effusion or pneumothorax. Impression: Persistent mild interstitial opacity/prominence. No focal airspace consolidation.
[2017-06-26] VITALS (25 sets, daily range): BP systolic 125–177; BP diastolic 69–108
[2017-06-26] MEDS: Piperacillin/Tazobactam 3.375 GM in D5W 110 ML IVPB SCH ×3 (00:33→16:27)
[2017-06-26] MEDS: NovoLOG Insulin Flexpen SUBQ SCH ×6 (00:34→21:01)
[2017-06-26 06:13] LABS: BASOPHILS % (AUTO) 0.6 % (0.0-2.0); EOSINOPHILS % (AUTO) 1.1 % (0.0-3.0); HEMATOCRIT 26.8 % (42.0-52.0); LYMPHOCYTES % (AUTO) 6.6 % (20.0-45.0); MEAN CORPUSCULAR VOLUME 97 FL (80-99); MONOCYTES % (AUTO) 9.1 % (1.0-10.0); NEUTROPHILS % (AUTO) 82.6 % (45.0-75.0); PLATELET COUNT 495 K/UL (150-450); RED BLOOD COUNT 2.75 M/UL (4.70-6.10); RED CELL DISTRIBUTION WIDTH 11.6 % (11.6-14.8); WHITE BLOOD COUNT 12.7 K/UL (4.8-10.8)
[2017-06-26 06:40] LABS: ALANINE AMINOTRANSFERASE 93 U/L (12-78); ALBUMIN 1.7 G/DL (3.4-5.0); ALBUMIN/GLOBULIN RATIO 0.4 (1.0-2.7); ALKALINE PHOSPHATASE 61 U/L (46-116); ANION GAP 11 mmol/L (5-15); ASPARTATE AMINO TRANSFERASE 62 U/L (15-37); BILIRUBIN,TOTAL 0.2 MG/DL (0.2-1.0); BLOOD UREA NITROGEN 23 mg/dL (7-18); CARBON DIOXIDE 21 MMOL/L (21-32); CHLORIDE 109 MMOL/L (98-107); CREATININE 2.2 MG/DL (0.55-1.30); POTASSIUM 3.9 MMOL/L (3.5-5.1); SODIUM 141 MMOL/L (136-145)
[2017-06-26] MEDS: Levemir Flexpen SUBQ SCH ×2 (08:56→21:00)
--- NOTE | 2017-06-26 09:32 | General Progress Note ---
Assessment/Plan Problem List: (1) DKA (diabetic ketoacidosis) ICD Codes: E13.10 - Other specified diabetes mellitus with ketoacidosis without coma SNOMED: 94702961, [id number] Qualifiers: Qualified Codes: E10.11 - Type 1 diabetes mellitus with ketoacidosis with coma (2) Metabolic acidosis ICD Codes: E87.2 - Acidosis SNOMED: 45019595 (3) Cardiopulmonary arrest ICD Codes: I46.9 - Cardiac arrest, cause unspecified SNOMED: 310413613 Assessment/Plan increase Levemir to 28 units bid continue Novolog isliding scale Subjective ROS Limited/Unobtainable: Yes Allergies: Coded Allergies: No Known Allergies (Unverified , 06/15/17) Subjective events noted Objective Last 24 Hour Vital Signs Date Time Temp Pulse Resp B/P (MAP) Pulse Ox O2 Delivery O2 Flow Rate FiO2 06/26/17 09:24 74 12 28 06/26/17 08:00 28 06/26/17 08:00 98.9 88 22 139/85 100 Mechanical Ventilator 28 06/26/17 08:00 88 06/26/17 07:00 85 19 145/92 100 Mechanical Ventilator 28 06/26/17 06:49 104 31 28 06/26/17 06:00 98 23 156/98 100 Mechanical Ventilator 28 06/26/17 05:22 110 19 28 06/26/17 05:00 94 19 146/94 100 Mechanical Ventilator 28 06/26/17 04:00 28 06/26/17 04:00 99.1 93 21 152/92 100 Mechanical Ventilator 28 06/26/17 03:39 95 06/26/17 03:08 110 24 28 06/26/17 03:00 96 21 154/99 100 Mechanical Ventilator 28 06/26/17 02:00 107 29 177/104 100 Mechanical Ventilator 28 06/26/17 01:20 105 31 28 06/26/17 01:00 86 38 165/90 100 Mechanical Ventilator 28 06/26/17 00:30 85 20 157/88 100 Mechanical Ventilator 28 06/26/17 00:16 81 06/26/17 00:00 99.0 102 26 159/108 100 Mechanical Ventilator 28 06/26/17 00:00 28 06/25/17 23:07 81 20 28 06/25/17 23:00 82 20 141/86 100 Mechanical Ventilator 28 06/25/17 22:00 88 31 142/86 100 Mechanical Ventilator 28 06/25/17 21:01 84 19 28 06/25/17 21:00 91 22 148/87 100 Mechanical Ventilator 28 06/25/17 20:00 28 06/25/17 20:00 99.8 90 21 146/102 100 Mechanical Ventilator 28 06/25/17 19:52 77 06/25/17 19:04 71 18 28 06/25/17 19:00 89 23 122/89 100 Mechanical Ventilator 28 06/25/17 18:00 114 30 148/116 100 Mechanical Ventilator 28 06/25/17 17:35 91 23 28 06/25/17 17:00 100 34 134/75 100 Mechanical Ventilator 28 06/25/17 16:00 98.9 102 31 145/82 100 Mechanical Ventilator 28 06/25/17 16:00 28 06/25/17 16:00 84 06/25/17 15:21 98 25 28 06/25/17 15:00 90 27 153/96 100 Mechanical Ventilator 28 06/25/17 14:00 98 18 125/75 100 Mechanical Ventilator 28 06/25/17 13:20 88 23 28 06/25/17 13:00 94 18 158/88 100 Mechanical Ventilator 28 06/25/17 12:00 82 06/25/17 12:00 98.6 102 20 147/80 100 Mechanical Ventilator 28 06/25/17 11:01 94 25 28 06/25/17 11:00 90 20 150/92 100 Mechanical Ventilator 28 06/25/17 11:00 28 06/25/17 10:00 101 26 141/99 100 Mechanical Ventilator 28 06/25/17 09:40 89 21 28 Intake and Output 06/25/17 06/26/17 19:00 07:00 Intake Total 2025 ml 1910.0 ml Output Total 1285 ml 1170 ml Balance 740 ml 740.0 ml IV Total 1425 ml 1310.0 ml Tube Feeding 600 ml 600 ml Output Urine Total 1105 ml 970 ml Stool Total 180 ml 200 ml # Bowel Movements 3 Laboratory Tests 06/26/17 05:40: White Blood Count 12.7H, Red Blood Count 2.75L, Hemoglobin 9.0L, Hematocrit 26.8L, Mean Corpuscular Volume 97, Mean Corpuscular Hemoglobin 32.8H, Mean Corpuscular Hemoglobin Concent 33.7, Red Cell Distribution Width 11.6, Platelet Count 495H, Mean Platelet Volume 5.9L, Neutrophils (%) (Auto) 82.6H, Lymphocytes (%) (Auto) 6.6L, Monocytes (%) (Auto) 9.1, Eosinophils (%) (Auto) 1.1, Basophils (%) (Auto) 0.6, Sodium Level 141, Potassium Level 3.9, Chloride Level 109H, Carbon Dioxide Level 21, Anion Gap 11, Blood Urea Nitrogen 23H, Creatinine 2.2H, Estimat Glomerular Filtration Rate 42.8, Glucose Level 233H, Calcium Level 9.0, Total Bilirubin 0.2, Aspartate Amino Transf (AST/SGOT) 62H, Alanine Aminotransferase (ALT/SGPT) 93H, Alkaline Phosphatase 61, Total Protein 6.1L, Albumin 1.7L, Globulin 4.4, Albumin/Globulin Ratio 0.4L, Lipase 2944H Height (Feet): 5 Height (Inches): 7.00 Weight (Pounds): 112 General Appearance: severe distress EENT: pale conjunctivae Cardiovascular: tachycardia Respiratory/Chest: decreased breath sounds Abdomen: normal bowel sounds Objective Current Medications Medications (Trade) Dose Ordered Sig/Conrado Route PRN Reason Start Time Stop Time Status Last Admin Dose Admin Acetaminophen (Tylenol) 650 mg Q4H PRN ORAL Mild Pain/Temp > 100.5 06/16/17 17:45 07/16/17 13:44 06/18/17 00:42 Atropine Sulfate (Atropine 1mg/ml Inj) 0.5 mg EVERY HOUR PRN IVP HR<35 BPM 06/16/17 16:15 07/16/17 16:14 Ceftaroline Fosamil 300 mg/ Sodium Chloride 55 ml @ 55 mls/hr 0800,1999 IVPB 06/25/17 16:30 07/02/17 16:29 06/25/17 17:18 Clonidine HCl (Catapres Tab) 0.1 mg Q2H PRN ORAL SBP Greater than 170 06/18/17 12:30 07/18/17 12:29 06/22/17 20:54 Dextrose (Dextrose 50%) STAT PRN IV Hypoglycemia 06/17/17 08:15 07/17/17 08:14 06/18/17 05:25 Insulin Aspart (NovoLOG) EVERY 4 HOURS SUBQ 06/17/17 09:00 07/17/17 08:59 06/26/17 08:57 Insulin Detemir (Levemir) 20 units Q12HR SUBQ 06/25/17 21:00 07/25/17 20:59 06/26/17 08:56 Lansoprazole (Prevacid) 30 mg DAILY NG 06/22/17 09:00 07/22/17 08:59 06/26/17 08:54 Ondansetron HCl (Zofran) 4 mg Q6H PRN IVP Nausea & Vomiting 06/16/17 19:00 07/16/17 00:59 Piperacillin Sod/ Tazobactam Sod 3.375 gm/Dextrose 110 ml @ 27.5 mls/hr Q8H IVPB 06/16/17 17:00 06/29/17 16:59 06/26/17 08:37 Potassium Chloride 40 meq/ Dextrose 1,020 ml @ 100 mls/hr [id number] IV 06/20/17 18:00 07/20/17 17:59 06/26/17 06:21 Item Value Date Time Bedside Blood Glucose 285 mg/dl H 06/26/17 0857 Bedside Blood Glucose 230 mg/dl H 06/26/17 0448 Bedside Blood Glucose 305 mg/dl H 06/26/17 0034 Bedside Blood Glucose 193 mg/dl H 06/25/17 2040 Bedside Blood Glucose 250 mg/dl H 06/25/17 1737 Bedside Blood Glucose 236 mg/dl H 06/25/17 1326 Bedside Blood Glucose 220 mg/dl H 06/25/17 0900 JADIEL MARCANO Jun 26, 2017 09:32
--- NOTE | 2017-06-26 09:56 | Pulmonology Progress Note ---
Assessment/Plan Assessment/Plan IMPRESSION: 1. Respiratory failure 2. Cannabis usage. 3. Diabetic ketoacidosis. 4. Troponin leak. 5. Tachycardia. 6. AMS; suspect anoxic brain injury DISCUSSION: Continue present management and care. continue vent settings to AC of 10, tidal volume 550, FiO2 80%. Ammonia is normal Reviewed neurology notes Continue vent/ AC mode Poor prognosis Subjective Interval Events: none Constitutional: Reports: no symptoms HEENT: Repors: no symptoms Respiratory: Reports: no symptoms Cardiovascular: Reports: no symptoms Allergies: Coded Allergies: No Known Allergies (Unverified , 06/15/17) Objective Last 24 Hour Vital Signs Date Time Temp Pulse Resp B/P (MAP) Pulse Ox O2 Delivery O2 Flow Rate FiO2 06/26/17 09:24 74 12 28 06/26/17 09:00 106 24 152/93 100 Mechanical Ventilator 28 06/26/17 08:00 28 06/26/17 08:00 98.9 88 22 139/85 100 Mechanical Ventilator 28 06/26/17 08:00 88 06/26/17 07:00 85 19 145/92 100 Mechanical Ventilator 28 06/26/17 06:49 104 31 28 06/26/17 06:00 98 23 156/98 100 Mechanical Ventilator 28 06/26/17 05:22 110 19 28 06/26/17 05:00 94 19 146/94 100 Mechanical Ventilator 28 06/26/17 04:00 28 06/26/17 04:00 99.1 93 21 152/92 100 Mechanical Ventilator 28 06/26/17 03:39 95 06/26/17 03:08 110 24 28 06/26/17 03:00 96 21 154/99 100 Mechanical Ventilator 28 06/26/17 02:00 107 29 177/104 100 Mechanical Ventilator 28 06/26/17 01:20 105 31 28 06/26/17 01:00 86 38 165/90 100 Mechanical Ventilator 28 06/26/17 00:30 85 20 157/88 100 Mechanical Ventilator 28 06/26/17 00:16 81 06/26/17 00:00 99.0 102 26 159/108 100 Mechanical Ventilator 28 06/26/17 00:00 28 06/25/17 23:07 81 20 28 06/25/17 23:00 82 20 141/86 100 Mechanical Ventilator 28 06/25/17 22:00 88 31 142/86 100 Mechanical Ventilator 28 06/25/17 21:01 84 19 28 06/25/17 21:00 91 22 148/87 100 Mechanical Ventilator 28 06/25/17 20:00 28 06/25/17 20:00 99.8 90 21 146/102 100 Mechanical Ventilator 28 06/25/17 19:52 77 06/25/17 19:04 71 18 28 06/25/17 19:00 89 23 122/89 100 Mechanical Ventilator 28 06/25/17 18:00 114 30 148/116 100 Mechanical Ventilator 28 06/25/17 17:35 91 23 28 06/25/17 17:00 100 34 134/75 100 Mechanical Ventilator 28 06/25/17 16:00 98.9 102 31 145/82 100 Mechanical Ventilator 28 06/25/17 16:00 28 06/25/17 16:00 84 06/25/17 15:21 98 25 28 06/25/17 15:00 90 27 153/96 100 Mechanical Ventilator 28 06/25/17 14:00 98 18 125/75 100 Mechanical Ventilator 28 06/25/17 13:20 88 23 28 06/25/17 13:00 94 18 158/88 100 Mechanical Ventilator 28 06/25/17 12:00 82 06/25/17 12:00 98.6 102 20 147/80 100 Mechanical Ventilator 28 06/25/17 11:01 94 25 28 06/25/17 11:00 90 20 150/92 100 Mechanical Ventilator 28 06/25/17 11:00 28 06/25/17 10:00 101 26 141/99 100 Mechanical Ventilator 28 Intake and Output 06/25/17 06/26/17 19:00 07:00 Intake Total 2025 ml 2010.0 ml Output Total 1285 ml 1170 ml Balance 740 ml 840.0 ml IV Total 1425 ml 1410.0 ml Tube Feeding 600 ml 600 ml Output Urine Total 1105 ml 970 ml Stool Total 180 ml 200 ml # Bowel Movements 3 General Appearance: no acute distress HEENT: normocephalic Respiratory/Chest: chest wall non-tender, lungs clear Cardiovascular: normal peripheral pulses, normal rate Abdomen: normal bowel sounds Laboratory Tests 06/26/17 05:40: White Blood Count 12.7H, Red Blood Count 2.75L, Hemoglobin 9.0L, Hematocrit 26.8L, Mean Corpuscular Volume 97, Mean Corpuscular Hemoglobin 32.8H, Mean Corpuscular Hemoglobin Concent 33.7, Red Cell Distribution Width 11.6, Platelet Count 495H, Mean Platelet Volume 5.9L, Neutrophils (%) (Auto) 82.6H, Lymphocytes (%) (Auto) 6.6L, Monocytes (%) (Auto) 9.1, Eosinophils (%) (Auto) 1.1, Basophils (%) (Auto) 0.6, Sodium Level 141, Potassium Level 3.9, Chloride Level 109H, Carbon Dioxide Level 21, Anion Gap 11, Blood Urea Nitrogen 23H, Creatinine 2.2H, Estimat Glomerular Filtration Rate 42.8, Glucose Level 233H, Calcium Level 9.0, Total Bilirubin 0.2, Aspartate Amino Transf (AST/SGOT) 62H, Alanine Aminotransferase (ALT/SGPT) 93H, Alkaline Phosphatase 61, Total Protein 6.1L, Albumin 1.7L, Globulin 4.4, Albumin/Globulin Ratio 0.4L, Lipase 2944H Current Medications Medications (Trade) Dose Ordered Sig/Conrado Route PRN Reason Start Time Stop Time Status Last Admin Dose Admin Acetaminophen (Tylenol) 650 mg Q4H PRN ORAL Mild Pain/Temp > 100.5 06/16/17 17:45 07/16/17 13:44 06/18/17 00:42 Atropine Sulfate (Atropine 1mg/ml Inj) 0.5 mg EVERY HOUR PRN IVP HR<35 BPM 06/16/17 16:15 07/16/17 16:14 Ceftaroline Fosamil 300 mg/ Sodium Chloride 55 ml @ 55 mls/hr 0800,1999 IVPB 06/25/17 16:30 07/02/17 16:29 06/25/17 17:18 Clonidine HCl (Catapres Tab) 0.1 mg Q2H PRN ORAL SBP Greater than 170 06/18/17 12:30 07/18/17 12:29 06/22/17 20:54 Dextrose (Dextrose 50%) STAT PRN IV Hypoglycemia 06/17/17 08:15 07/17/17 08:14 06/18/17 05:25 Insulin Aspart (NovoLOG) EVERY 4 HOURS SUBQ 06/17/17 09:00 07/17/17 08:59 06/26/17 08:57 Insulin Detemir (Levemir) 28 units Q12HR SUBQ 06/26/17 21:00 07/26/17 20:59 Lansoprazole (Prevacid) 30 mg DAILY NG 06/22/17 09:00 07/22/17 08:59 06/26/17 08:54 Ondansetron HCl (Zofran) 4 mg Q6H PRN IVP Nausea & Vomiting 06/16/17 19:00 07/16/17 00:59 Piperacillin Sod/ Tazobactam Sod 3.375 gm/Dextrose 110 ml @ 27.5 mls/hr Q8H IVPB 06/16/17 17:00 06/29/17 16:59 06/26/17 08:37 Potassium Chloride 40 meq/ Dextrose 1,020 ml @ 100 mls/hr [id number] IV 06/20/17 18:00 07/20/17 17:59 06/26/17 06:21 Paulo Floyd MD Jun 26, 2017 09:56
[2017-06-26] MEDS: Ceftaroline 300 MG in NS 55 ML IVPB SCH ×2 (09:59→19:51)
--- NOTE | 2017-06-26 13:56 | Nephrology Progress Note ---
Assessment/Plan Problem List: (1) DKA (diabetic ketoacidosis) (2) Elevated troponin (3) Pancreatitis (4) Hyponatremia Assessment: corrected (5) Acidosis (6) Respiratory distress Assessment: now intubated (7) Fever (8) Pneumonia Assessment: aspiration? (9) Sepsis (10) Alcohol withdrawal (11) Metabolic acidosis (12) Cardiopulmonary arrest Plan cardio/ID/pulm/endocrine following. continue empiric abx. follow up cultures. per SW. patient deciding on terminal extubation. d./w Dr. Matson. Subjective Subjective remains intubated in ICU. no family at bedside. Objective Objective Last 24 Hour Vital Signs Date Time Temp Pulse Resp B/P (MAP) Pulse Ox O2 Delivery O2 Flow Rate FiO2 06/26/17 13:00 81 20 150/73 100 Mechanical Ventilator 28 06/26/17 12:31 106 16 28 06/26/17 12:00 28 06/26/17 12:00 95 06/26/17 12:00 97.8 90 22 160/102 100 Mechanical Ventilator 28 06/26/17 11:00 90 21 165/104 100 Mechanical Ventilator 28 06/26/17 11:00 94 22 28 06/26/17 10:00 85 26 165/89 100 Mechanical Ventilator 28 06/26/17 09:24 74 12 28 06/26/17 09:00 106 24 152/93 100 Mechanical Ventilator 28 06/26/17 08:00 28 06/26/17 08:00 98.9 88 22 139/85 100 Mechanical Ventilator 28 06/26/17 08:00 88 06/26/17 07:00 85 19 145/92 100 Mechanical Ventilator 28 06/26/17 06:49 104 31 28 06/26/17 06:00 98 23 156/98 100 Mechanical Ventilator 28 06/26/17 05:22 110 19 28 06/26/17 05:00 94 19 146/94 100 Mechanical Ventilator 28 06/26/17 04:00 28 06/26/17 04:00 99.1 93 21 152/92 100 Mechanical Ventilator 28 06/26/17 03:39 95 06/26/17 03:08 110 24 28 06/26/17 03:00 96 21 154/99 100 Mechanical Ventilator 28 06/26/17 02:00 107 29 177/104 100 Mechanical Ventilator 28 06/26/17 01:20 105 31 28 06/26/17 01:00 86 38 165/90 100 Mechanical Ventilator 28 06/26/17 00:30 85 20 157/88 100 Mechanical Ventilator 28 06/26/17 00:16 81 06/26/17 00:00 99.0 102 26 159/108 100 Mechanical Ventilator 28 06/26/17 00:00 28 06/25/17 23:07 81 20 28 06/25/17 23:00 82 20 141/86 100 Mechanical Ventilator 28 06/25/17 22:00 88 31 142/86 100 Mechanical Ventilator 28 06/25/17 21:01 84 19 28 06/25/17 21:00 91 22 148/87 100 Mechanical Ventilator 28 06/25/17 20:00 28 06/25/17 20:00 99.8 90 21 146/102 100 Mechanical Ventilator 28 06/25/17 19:52 77 06/25/17 19:04 71 18 28 06/25/17 19:00 89 23 122/89 100 Mechanical Ventilator 28 06/25/17 18:00 114 30 148/116 100 Mechanical Ventilator 28 06/25/17 17:35 91 23 28 06/25/17 17:00 100 34 134/75 100 Mechanical Ventilator 28 06/25/17 16:00 98.9 102 31 145/82 100 Mechanical Ventilator 28 06/25/17 16:00 28 06/25/17 16:00 84 06/25/17 15:21 98 25 28 06/25/17 15:00 90 27 153/96 100 Mechanical Ventilator 28 06/25/17 14:00 98 18 125/75 100 Mechanical Ventilator 28 Intake and Output 06/25/17 06/26/17 19:00 07:00 Intake Total 2025 ml 2010.0 ml Output Total 1285 ml 1170 ml Balance 740 ml 840.0 ml IV Total 1425 ml 1410.0 ml Tube Feeding 600 ml 600 ml Output Urine Total 1105 ml 970 ml Stool Total 180 ml 200 ml # Bowel Movements 3 Laboratory Tests 06/26/17 05:40: White Blood Count 12.7H, Red Blood Count 2.75L, Hemoglobin 9.0L, Hematocrit 26.8L, Mean Corpuscular Volume 97, Mean Corpuscular Hemoglobin 32.8H, Mean Corpuscular Hemoglobin Concent 33.7, Red Cell Distribution Width 11.6, Platelet Count 495H, Mean Platelet Volume 5.9L, Neutrophils (%) (Auto) 82.6H, Lymphocytes (%) (Auto) 6.6L, Monocytes (%) (Auto) 9.1, Eosinophils (%) (Auto) 1.1, Basophils (%) (Auto) 0.6, Sodium Level 141, Potassium Level 3.9, Chloride Level 109H, Carbon Dioxide Level 21, Anion Gap 11, Blood Urea Nitrogen 23H, Creatinine 2.2H, Estimat Glomerular Filtration Rate 42.8, Glucose Level 233H, Calcium Level 9.0, Total Bilirubin 0.2, Aspartate Amino Transf (AST/SGOT) 62H, Alanine Aminotransferase (ALT/SGPT) 93H, Alkaline Phosphatase 61, Total Protein 6.1L, Albumin 1.7L, Globulin 4.4, Albumin/Globulin Ratio 0.4L, Lipase 2944H Height (Feet): 5 Height (Inches): 7.00 Weight (Pounds): 112 General Appearance: no apparent distress Cardiovascular: normal rate, regular rhythm Respiratory/Chest: decreased breath sounds Abdomen: non tender, soft Extremities: non-pitting Neurologic: unresponsive SOFIA HAYES Jun 26, 2017 13:56
--- NOTE | 2017-06-26 15:43 | Infectious Diseases Prog Note ---
Assessment/Plan Problems: (1) Pneumonia Assessment & Plan: suspect aspiration due to altered mental status , continue zosyn and ceftaroline empiric coverage , repeated CXR showed persistent opacification .sputum culture is pending . (2) Sepsis Assessment & Plan: due to the above, blood culture is negative , continue zosyn and ceftaroline empirically (3) Pancreatitis Assessment & Plan: suspect due to alcohol abuse, monitor lipase, continue tube feeding , GI is following (4) DKA (diabetic ketoacidosis) Assessment & Plan: improved, S/P insulin drip ,continue close monitor of blood glucose , avoid hypoglycemia . (5) Fever Assessment & Plan: suspect due to the above , continue tylenol empirically, monitor culture (6) Cardiopulmonary arrest Assessment & Plan: intubated on mechanical ventilation , monitor ABG, cardiology and pulmonary team are following (7) Anoxic cerebral edema Assessment & Plan: with no improvement, neurology is following , has poor prognosis , may need tracheostomy, and PEG tube placement (8) Diarrhea Assessment & Plan: await stool for C diff . Subjective ROS Limited/Unobtainable: Yes Allergies: Coded Allergies: No Known Allergies (Unverified , 06/15/17) Subjective he is still intubated on mechanical ventilation , unresponsive and postural and spastic in the lower extremities , dosen't blinks spontaneously , afebrile, had diarrhea , no significant secretions . making good urine . Objective Vital Signs Last 24 Hour Vital Signs Date Time Temp Pulse Resp B/P (MAP) Pulse Ox O2 Delivery O2 Flow Rate FiO2 06/26/17 15:29 79 18 28 06/26/17 15:00 84 21 152/92 100 Mechanical Ventilator 06/26/17 14:00 86 20 154/95 100 Mechanical Ventilator 28 06/26/17 13:00 81 20 150/73 100 Mechanical Ventilator 28 06/26/17 12:31 106 16 28 06/26/17 12:00 28 06/26/17 12:00 95 06/26/17 12:00 97.8 90 22 160/102 100 Mechanical Ventilator 28 06/26/17 11:00 90 21 165/104 100 Mechanical Ventilator 28 06/26/17 11:00 94 22 28 06/26/17 10:00 85 26 165/89 100 Mechanical Ventilator 06/26/17 09:24 74 12 28 06/26/17 09:00 106 24 152/93 100 Mechanical Ventilator 28 06/26/17 08:00 28 06/26/17 08:00 98.9 88 22 139/85 100 Mechanical Ventilator 28 06/26/17 08:00 88 06/26/17 07:00 85 19 145/92 100 Mechanical Ventilator 28 06/26/17 06:49 104 31 28 06/26/17 06:00 98 23 156/98 100 Mechanical Ventilator 28 06/26/17 05:22 110 19 28 06/26/17 05:00 94 19 146/94 100 Mechanical Ventilator 28 06/26/17 04:00 28 06/26/17 04:00 99.1 93 21 152/92 100 Mechanical Ventilator 28 06/26/17 03:39 95 06/26/17 03:08 110 24 28 06/26/17 03:00 96 21 154/99 100 Mechanical Ventilator 28 06/26/17 02:00 107 29 177/104 100 Mechanical Ventilator 28 06/26/17 01:20 105 31 28 06/26/17 01:00 86 38 165/90 100 Mechanical Ventilator 28 06/26/17 00:30 85 20 157/88 100 Mechanical Ventilator 28 06/26/17 00:16 81 06/26/17 00:00 99.0 102 26 159/108 100 Mechanical Ventilator 28 06/26/17 00:00 28 06/25/17 23:07 81 20 28 06/25/17 23:00 82 20 141/86 100 Mechanical Ventilator 28 06/25/17 22:00 88 31 142/86 100 Mechanical Ventilator 28 06/25/17 21:01 84 19 28 06/25/17 21:00 91 22 148/87 100 Mechanical Ventilator 28 06/25/17 20:00 28 06/25/17 20:00 99.8 90 21 146/102 100 Mechanical Ventilator 28 06/25/17 19:52 77 06/25/17 19:04 71 18 28 06/25/17 19:00 89 23 122/89 100 Mechanical Ventilator 28 06/25/17 18:00 114 30 148/116 100 Mechanical Ventilator 28 06/25/17 17:35 91 23 28 06/25/17 17:00 100 34 134/75 100 Mechanical Ventilator 28 06/25/17 16:00 98.9 102 31 145/82 100 Mechanical Ventilator 28 06/25/17 16:00 28 06/25/17 16:00 84 Height (Feet): 5 Height (Inches): 7.00 Weight (Pounds): 112 General Appearance: WD/WN, no acute distress HEENT: normocephalic, atraumatic, anicteric, mucous membranes moist, supple, no JVD Respiratory/Chest: chest wall non-tender, no respiratory distress, no accessory muscle use, decreased breath sounds, crackles/rales Cardiovascular: normal peripheral pulses, normal rate, regular rhythm, no gallop/murmur, no JVD Abdomen: normal bowel sounds, soft, non tender, no organomegaly, non distended , no mass, no scars Extremities: no cyanosis, no clubbing Skin: no rash, no lesions, no ulcers Neurologic/Psychiatric: alert, oriented x 3, responsive Lymphatic: no neck adenopathy, no groin adenopathy Laboratory Tests Test 06/26/17 05:40 White Blood Count 12.7 K/UL (4.8-10.8) H Red Blood Count 2.75 M/UL (4.70-6.10) L Hemoglobin 9.0 G/DL (14.2-18.0) L Hematocrit 26.8 % (42.0-52.0) L Mean Corpuscular Volume 97 FL (80-99) Mean Corpuscular Hemoglobin 32.8 PG (27.0-31.0) H Mean Corpuscular Hemoglobin Concent 33.7 G/DL (32.0-36.0) Red Cell Distribution Width 11.6 % (11.6-14.8) Platelet Count 495 K/UL (150-450) H Mean Platelet Volume 5.9 FL (6.5-10.1) L Neutrophils (%) (Auto) 82.6 % (45.0-75.0) H Lymphocytes (%) (Auto) 6.6 % (20.0-45.0) L Monocytes (%) (Auto) 9.1 % (1.0-10.0) Eosinophils (%) (Auto) 1.1 % (0.0-3.0) Basophils (%) (Auto) 0.6 % (0.0-2.0) Sodium Level 141 MMOL/L (136-145) Potassium Level 3.9 MMOL/L (3.5-5.1) Chloride Level 109 MMOL/L (98-107) H Carbon Dioxide Level 21 MMOL/L (21-32) Anion Gap 11 mmol/L (5-15) Blood Urea Nitrogen 23 mg/dL (7-18) H Creatinine 2.2 MG/DL (0.55-1.30) H Estimat Glomerular Filtration Rate 42.8 mL/min (>60) Glucose Level 233 MG/DL (74-106) H Calcium Level 9.0 MG/DL (8.5-10.1) Total Bilirubin 0.2 MG/DL (0.2-1.0) Aspartate Amino Transf (AST/SGOT) 62 U/L (15-37) H Alanine Aminotransferase (ALT/SGPT) 93 U/L (12-78) H Alkaline Phosphatase 61 U/L (46-116) Total Protein 6.1 G/DL (6.4-8.2) L Albumin 1.7 G/DL (3.4-5.0) L Globulin 4.4 g/dL Albumin/Globulin Ratio 0.4 (1.0-2.7) L Lipase 2944 U/L (73-393) H Current Medications Medications (Trade) Dose Ordered Sig/Conrado Route PRN Reason Start Time Stop Time Status Last Admin Dose Admin Acetaminophen (Tylenol) 650 mg Q4H PRN ORAL Mild Pain/Temp > 100.5 06/16/17 17:45 07/16/17 13:44 06/18/17 00:42 Atropine Sulfate (Atropine 1mg/ml Inj) 0.5 mg EVERY HOUR PRN IVP HR<35 BPM 06/16/17 16:15 07/16/17 16:14 Ceftaroline Fosamil 300 mg/ Sodium Chloride 55 ml @ 55 mls/hr IVPB 06/25/17 16:30 07/02/17 16:29 06/26/17 09:59 Clonidine HCl (Catapres Tab) 0.1 mg Q2H PRN ORAL SBP Greater than 170 06/18/17 12:30 07/18/17 12:29 06/22/17 20:54 Dextrose (Dextrose 50%) STAT PRN IV Hypoglycemia 06/17/17 08:15 07/17/17 08:14 06/18/17 05:25 Insulin Aspart (NovoLOG) EVERY 4 HOURS SUBQ 06/17/17 09:00 07/17/17 08:59 06/26/17 12:41 Insulin Detemir (Levemir) 28 units Q12HR SUBQ 06/26/17 21:00 07/26/17 20:59 Lansoprazole (Prevacid) 30 mg DAILY NG 06/22/17 09:00 07/22/17 08:59 06/26/17 08:54 Ondansetron HCl (Zofran) 4 mg Q6H PRN IVP Nausea & Vomiting 06/16/17 19:00 07/16/17 00:59 Piperacillin Sod/ Tazobactam Sod 3.375 gm/Dextrose 110 ml @ 27.5 mls/hr Q8H IVPB 06/16/17 17:00 06/29/17 16:59 06/26/17 08:37 Potassium Chloride 40 meq/ Dextrose 1,020 ml @ 100 mls/hr [id number] IV 06/20/17 18:00 07/20/17 17:59 06/26/17 06:21 Saad Cummings M.D. Jun 26, 2017 15:43
--- NOTE | 2017-06-26 17:00 | Cardiac Electrophysiology PN ---
Assessment/Plan Assessment/Plan 1. Troponin leak. Levels are flat and likely due to renal failure. The creatinine of 3.5. Echocardiogram EF60% 2. Tachycardia due to diabetic ketoacidosis and sepsis. 3. Respiratory failure on Vent. Plan is terminal extubation tomorrow. 4. Pneumonia, on vancomycin and Zosyn per Dr. Cummings. 5. Pancreatitis. NPO on ivf 6. ARF Cr 3.5, now down to 2.2 7. Marijuana use. 8. Suspect diffuse cerebral anoxia and edema with decorticate rigidity per Dr Cano. 9. Alcohol withdrawal. DW RN Subjective Subjective In ICU on vent.No arrhythmias. Unresponsive with decorticate rigidity. RN at bedside. Objective Last 24 Hour Vital Signs Date Time Temp Pulse Resp B/P (MAP) Pulse Ox O2 Delivery O2 Flow Rate FiO2 06/26/17 16:00 28 06/26/17 16:00 94 06/26/17 16:00 99.0 87 21 152/91 100 Mechanical Ventilator 28 06/26/17 15:29 79 18 28 06/26/17 15:00 84 21 152/92 100 Mechanical Ventilator 28 06/26/17 14:00 86 20 154/95 100 Mechanical Ventilator 28 06/26/17 13:00 81 20 150/73 100 Mechanical Ventilator 28 06/26/17 12:31 106 16 28 06/26/17 12:00 28 06/26/17 12:00 95 06/26/17 12:00 97.8 90 22 160/102 100 Mechanical Ventilator 28 06/26/17 11:00 90 21 165/104 100 Mechanical Ventilator 28 06/26/17 11:00 94 22 28 06/26/17 10:00 85 26 165/89 100 Mechanical Ventilator 28 06/26/17 09:24 74 12 28 06/26/17 09:00 106 24 152/93 100 Mechanical Ventilator 28 06/26/17 08:00 28 06/26/17 08:00 98.9 88 22 139/85 100 Mechanical Ventilator 28 06/26/17 08:00 88 06/26/17 07:00 85 19 145/92 100 Mechanical Ventilator 28 06/26/17 06:49 104 31 28 06/26/17 06:00 98 23 156/98 100 Mechanical Ventilator 28 06/26/17 05:22 110 19 28 06/26/17 05:00 94 19 146/94 100 Mechanical Ventilator 28 06/26/17 04:00 28 06/26/17 04:00 99.1 93 21 152/92 100 Mechanical Ventilator 28 06/26/17 03:39 95 06/26/17 03:08 110 24 28 06/26/17 03:00 96 21 154/99 100 Mechanical Ventilator 28 06/26/17 02:00 107 29 177/104 100 Mechanical Ventilator 28 06/26/17 01:20 105 31 28 06/26/17 01:00 86 38 165/90 100 Mechanical Ventilator 28 06/26/17 00:30 85 20 157/88 100 Mechanical Ventilator 28 06/26/17 00:16 81 06/26/17 00:00 99.0 102 26 159/108 100 Mechanical Ventilator 28 06/26/17 00:00 28 06/25/17 23:07 81 20 28 06/25/17 23:00 82 20 141/86 100 Mechanical Ventilator 28 06/25/17 22:00 88 31 142/86 100 Mechanical Ventilator 28 06/25/17 21:01 84 19 28 06/25/17 21:00 91 22 148/87 100 Mechanical Ventilator 28 06/25/17 20:00 28 06/25/17 20:00 99.8 90 21 146/102 100 Mechanical Ventilator 28 06/25/17 19:52 77 06/25/17 19:04 71 18 28 06/25/17 19:00 89 23 122/89 100 Mechanical Ventilator 28 06/25/17 18:00 114 30 148/116 100 Mechanical Ventilator 28 06/25/17 17:35 91 23 28 06/25/17 17:00 100 34 134/75 100 Mechanical Ventilator 28 Intake and Output 06/25/17 06/26/17 19:00 07:00 Intake Total 2025 ml 2010.0 ml Output Total 1285 ml 1170 ml Balance 740 ml 840.0 ml IV Total 1425 ml 1410.0 ml Tube Feeding 600 ml 600 ml Output Urine Total 1105 ml 970 ml Stool Total 180 ml 200 ml # Bowel Movements 3 Laboratory Tests Test 06/26/17 05:40 White Blood Count 12.7 K/UL (4.8-10.8) H Red Blood Count 2.75 M/UL (4.70-6.10) L Hemoglobin 9.0 G/DL (14.2-18.0) L Hematocrit 26.8 % (42.0-52.0) L Mean Corpuscular Volume 97 FL (80-99) Mean Corpuscular Hemoglobin 32.8 PG (27.0-31.0) H Mean Corpuscular Hemoglobin Concent 33.7 G/DL (32.0-36.0) Red Cell Distribution Width 11.6 % (11.6-14.8) Platelet Count 495 K/UL (150-450) H Mean Platelet Volume 5.9 FL (6.5-10.1) L Neutrophils (%) (Auto) 82.6 % (45.0-75.0) H Lymphocytes (%) (Auto) 6.6 % (20.0-45.0) L Monocytes (%) (Auto) 9.1 % (1.0-10.0) Eosinophils (%) (Auto) 1.1 % (0.0-3.0) Basophils (%) (Auto) 0.6 % (0.0-2.0) Sodium Level 141 MMOL/L (136-145) Potassium Level 3.9 MMOL/L (3.5-5.1) Chloride Level 109 MMOL/L (98-107) H Carbon Dioxide Level 21 MMOL/L (21-32) Anion Gap 11 mmol/L (5-15) Blood Urea Nitrogen 23 mg/dL (7-18) H Creatinine 2.2 MG/DL (0.55-1.30) H Estimat Glomerular Filtration Rate 42.8 mL/min (>60) Glucose Level 233 MG/DL (74-106) H Calcium Level 9.0 MG/DL (8.5-10.1) Total Bilirubin 0.2 MG/DL (0.2-1.0) Aspartate Amino Transf (AST/SGOT) 62 U/L (15-37) H Alanine Aminotransferase (ALT/SGPT) 93 U/L (12-78) H Alkaline Phosphatase 61 U/L (46-116) Total Protein 6.1 G/DL (6.4-8.2) L Albumin 1.7 G/DL (3.4-5.0) L Globulin 4.4 g/dL Albumin/Globulin Ratio 0.4 (1.0-2.7) L Lipase 2944 U/L (73-393) H Objective HEAD AND NECK: No JVD.Orally intubated. OG tube in LUNGS: Clear. CARDIOVASCULAR: Regular S1 and S2 with no gallop or murmur. ABDOMEN: Soft and nontender. EXTREMITIES: No pitting edema. ALBERT ROWAN Jun 26, 2017 17:00
--- NOTE | 2017-06-26 17:59 | GI Progress Note ---
Assessment/Plan Problems: (1) Shock liver ICD Codes: K72.00 - Acute and subacute hepatic failure without coma SNOMED: 759916878 (2) Anoxic cerebral edema ICD Codes: G93.6 - Cerebral edema; R09.02 - Hypoxemia SNOMED: 1901859, 073096926 (3) Transaminitis ICD Codes: R74.0 - Nonspecific elevation of levels of transaminase and lactic acid dehydrogenase [LDH] SNOMED: 325324643, 659034485 (4) Alcohol withdrawal ICD Codes: F10.239 - Alcohol dependence with withdrawal, unspecified SNOMED: 687853016 (5) Pancreatitis ICD Codes: K85.90 - Acute pancreatitis without necrosis or infection, unspecified SNOMED: 29988936 Status: unchanged Status Narrative Discussed with Dr. Rico. Assessment/Plan head CT reviewed >> Suspect diffuse cerebral anoxia and edema. utox positive marijuana macrocytic hyperchromic anemia OB stool positive rising LFTs >> shocked liver defer GI procedures at this time, respiratory status not stable DM mgmt electrolyte correction follow lipase ppi BID monitor H&H, prn transfusions fu labs adv TFs Subjective Subjective limited Objective Last 24 Hour Vital Signs Date Time Temp Pulse Resp B/P (MAP) Pulse Ox O2 Delivery O2 Flow Rate FiO2 06/26/17 17:05 74 18 28 06/26/17 17:00 79 21 136/81 100 Mechanical Ventilator 28 06/26/17 16:00 28 06/26/17 16:00 94 06/26/17 16:00 99.0 87 21 152/91 100 Mechanical Ventilator 28 06/26/17 15:29 79 18 28 06/26/17 15:00 84 21 152/92 100 Mechanical Ventilator 28 06/26/17 14:00 86 20 154/95 100 Mechanical Ventilator 28 06/26/17 13:00 81 20 150/73 100 Mechanical Ventilator 28 06/26/17 12:31 106 16 28 06/26/17 12:00 28 06/26/17 12:00 95 06/26/17 12:00 97.8 90 22 160/102 100 Mechanical Ventilator 28 06/26/17 11:00 90 21 165/104 100 Mechanical Ventilator 28 06/26/17 11:00 94 22 28 06/26/17 10:00 85 26 165/89 100 Mechanical Ventilator 28 06/26/17 09:24 74 12 28 06/26/17 09:00 106 24 152/93 100 Mechanical Ventilator 28 06/26/17 08:00 28 06/26/17 08:00 98.9 88 22 139/85 100 Mechanical Ventilator 28 06/26/17 08:00 88 06/26/17 07:00 85 19 145/92 100 Mechanical Ventilator 28 06/26/17 06:49 104 31 28 06/26/17 06:00 98 23 156/98 100 Mechanical Ventilator 28 06/26/17 05:22 110 19 28 06/26/17 05:00 94 19 146/94 100 Mechanical Ventilator 28 06/26/17 04:00 28 06/26/17 04:00 99.1 93 21 152/92 100 Mechanical Ventilator 28 06/26/17 03:39 95 06/26/17 03:08 110 24 28 06/26/17 03:00 96 21 154/99 100 Mechanical Ventilator 28 06/26/17 02:00 107 29 177/104 100 Mechanical Ventilator 28 06/26/17 01:20 105 31 28 06/26/17 01:00 86 38 165/90 100 Mechanical Ventilator 28 06/26/17 00:30 85 20 157/88 100 Mechanical Ventilator 28 06/26/17 00:16 81 06/26/17 00:00 99.0 102 26 159/108 100 Mechanical Ventilator 28 06/26/17 00:00 28 06/25/17 23:07 81 20 28 06/25/17 23:00 82 20 141/86 100 Mechanical Ventilator 28 06/25/17 22:00 88 31 142/86 100 Mechanical Ventilator 28 06/25/17 21:01 84 19 28 06/25/17 21:00 91 22 148/87 100 Mechanical Ventilator 28 06/25/17 20:00 28 06/25/17 20:00 99.8 90 21 146/102 100 Mechanical Ventilator 28 06/25/17 19:52 77 06/25/17 19:04 71 18 28 06/25/17 19:00 89 23 122/89 100 Mechanical Ventilator 28 06/25/17 18:00 114 30 148/116 100 Mechanical Ventilator 28 Intake and Output 06/25/17 06/26/17 19:00 07:00 Intake Total 2025 ml 2010.0 ml Output Total 1285 ml 1170 ml Balance 740 ml 840.0 ml IV Total 1425 ml 1410.0 ml Tube Feeding 600 ml 600 ml Output Urine Total 1105 ml 970 ml Stool Total 180 ml 200 ml # Bowel Movements 3 Laboratory Tests Test 06/26/17 05:40 White Blood Count 12.7 K/UL (4.8-10.8) H Red Blood Count 2.75 M/UL (4.70-6.10) L Hemoglobin 9.0 G/DL (14.2-18.0) L Hematocrit 26.8 % (42.0-52.0) L Mean Corpuscular Volume 97 FL (80-99) Mean Corpuscular Hemoglobin 32.8 PG (27.0-31.0) H Mean Corpuscular Hemoglobin Concent 33.7 G/DL (32.0-36.0) Red Cell Distribution Width 11.6 % (11.6-14.8) Platelet Count 495 K/UL (150-450) H Mean Platelet Volume 5.9 FL (6.5-10.1) L Neutrophils (%) (Auto) 82.6 % (45.0-75.0) H Lymphocytes (%) (Auto) 6.6 % (20.0-45.0) L Monocytes (%) (Auto) 9.1 % (1.0-10.0) Eosinophils (%) (Auto) 1.1 % (0.0-3.0) Basophils (%) (Auto) 0.6 % (0.0-2.0) Sodium Level 141 MMOL/L (136-145) Potassium Level 3.9 MMOL/L (3.5-5.1) Chloride Level 109 MMOL/L (98-107) H Carbon Dioxide Level 21 MMOL/L (21-32) Anion Gap 11 mmol/L (5-15) Blood Urea Nitrogen 23 mg/dL (7-18) H Creatinine 2.2 MG/DL (0.55-1.30) H Estimat Glomerular Filtration Rate 42.8 mL/min (>60) Glucose Level 233 MG/DL (74-106) H Calcium Level 9.0 MG/DL (8.5-10.1) Total Bilirubin 0.2 MG/DL (0.2-1.0) Aspartate Amino Transf (AST/SGOT) 62 U/L (15-37) H Alanine Aminotransferase (ALT/SGPT) 93 U/L (12-78) H Alkaline Phosphatase 61 U/L (46-116) Total Protein 6.1 G/DL (6.4-8.2) L Albumin 1.7 G/DL (3.4-5.0) L Globulin 4.4 g/dL Albumin/Globulin Ratio 0.4 (1.0-2.7) L Lipase 2944 U/L (73-393) H Height (Feet): 5 Height (Inches): 7.00 Weight (Pounds): 112 General Appearance: lethargic Cardiovascular: normal rate Respiratory/Chest: normal breath sounds, no respiratory distress Abdominal Exam: normal bowel sounds, non tender, soft Extremities: non-tender Lashawn Mason N.P. Jun 26, 2017 17:59
[2017-06-27] VITALS (22 sets, daily range): BP systolic 109–185; BP diastolic 29–101
[2017-06-27] MEDS: Piperacillin/Tazobactam 3.375 GM in D5W 110 ML IVPB SCH ×2 (00:39→09:48)
[2017-06-27] MEDS: NovoLOG Insulin Flexpen SUBQ SCH ×3 (00:40→09:55)
[2017-06-27 07:15] LABS: HEMATOCRIT 25.2 % (42.0-52.0); HEMOGLOBIN 8.4 G/DL (14.2-18.0); LYMPHOCYTES % (AUTO) 10.7 % (20.0-45.0); MEAN CORPUSCULAR VOLUME 98 FL (80-99); MONOCYTES % (AUTO) 11.7 % (1.0-10.0); NEUTROPHILS % (AUTO) 74.5 % (45.0-75.0); PLATELET COUNT 428 K/UL (150-450); RED BLOOD COUNT 2.57 M/UL (4.70-6.10); RED CELL DISTRIBUTION WIDTH 11.6 % (11.6-14.8); WHITE BLOOD COUNT 8.2 K/UL (4.8-10.8)
[2017-06-27 07:20] LABS: ALANINE AMINOTRANSFERASE 74 U/L (12-78); ALBUMIN 1.7 G/DL (3.4-5.0); ALBUMIN/GLOBULIN RATIO 0.4 (1.0-2.7); ALKALINE PHOSPHATASE 51 U/L (46-116); ANION GAP 9 mmol/L (5-15); ASPARTATE AMINO TRANSFERASE 52 U/L (15-37); BILIRUBIN,TOTAL 0.2 MG/DL (0.2-1.0); BLOOD UREA NITROGEN 21 mg/dL (7-18); CALCIUM 8.9 MG/DL (8.5-10.1); CARBON DIOXIDE 23 MMOL/L (21-32); CHLORIDE 107 MMOL/L (98-107); CREATININE 2.1 MG/DL (0.55-1.30); SODIUM 138 MMOL/L (136-145)
[2017-06-27] MEDS: Ceftaroline 300 MG in NS 55 ML IVPB SCH (08:08)
--- NOTE | 2017-06-27 08:14 | General Progress Note ---
Assessment/Plan Problem List: (1) DKA (diabetic ketoacidosis) ICD Codes: E13.10 - Other specified diabetes mellitus with ketoacidosis without coma SNOMED: 34211407, 454978461 Qualifiers: Qualified Codes: E10.11 - Type 1 diabetes mellitus with ketoacidosis with coma (2) Metabolic acidosis ICD Codes: E87.2 - Acidosis SNOMED: 17958817 (3) Cardiopulmonary arrest ICD Codes: I46.9 - Cardiac arrest, cause unspecified SNOMED: 428734687 Assessment/Plan plan for terminal extubation today noted Subjective ROS Limited/Unobtainable: Yes Allergies: Coded Allergies: No Known Allergies (Unverified , 06/15/17) Subjective events noted Objective Last 24 Hour Vital Signs Date Time Temp Pulse Resp B/P (MAP) Pulse Ox O2 Delivery O2 Flow Rate FiO2 06/27/17 08:00 30 06/27/17 08:00 98.1 105 27 145/92 100 Mechanical Ventilator 28 06/27/17 07:00 99 19 142/92 100 Mechanical Ventilator 28 06/27/17 06:59 114 31 30 06/27/17 06:00 82 19 146/97 100 Mechanical Ventilator 28 06/27/17 05:00 79 19 148/88 100 Mechanical Ventilator 28 06/27/17 04:47 84 22 28 06/27/17 04:00 98.7 82 17 137/83 100 Mechanical Ventilator 28 06/27/17 04:00 82 06/27/17 04:00 28 06/27/17 03:30 80 17 28 06/27/17 03:00 71 19 143/89 100 Mechanical Ventilator 28 06/27/17 02:00 72 19 146/101 100 Mechanical Ventilator 28 06/27/17 01:30 102 28 28 06/27/17 01:00 91 21 185/91 100 Mechanical Ventilator 28 06/27/17 00:00 99.0 91 21 129/77 100 Mechanical Ventilator 28 06/27/17 00:00 28 06/27/17 00:00 66 06/26/17 23:13 78 22 28 06/26/17 23:00 69 18 149/69 100 Mechanical Ventilator 28 06/26/17 22:00 63 21 127/73 100 Mechanical Ventilator 28 06/26/17 21:24 77 21 28 06/26/17 21:00 87 21 149/88 100 Mechanical Ventilator 28 06/26/17 20:00 87 06/26/17 20:00 28 06/26/17 20:00 98.7 74 21 125/91 100 Mechanical Ventilator 28 06/26/17 19:30 80 20 28 06/26/17 19:30 79 20 28 06/26/17 19:00 70 15 126/69 100 Mechanical Ventilator 28 06/26/17 18:51 110 20 Mechanical Ventilator 06/26/17 18:00 66 16 150/92 100 Mechanical Ventilator 28 06/26/17 17:05 74 18 28 06/26/17 17:00 79 21 136/81 100 Mechanical Ventilator 28 06/26/17 16:00 28 06/26/17 16:00 94 06/26/17 16:00 99.0 87 21 152/91 100 Mechanical Ventilator 28 06/26/17 15:29 79 18 28 06/26/17 15:00 84 21 152/92 100 Mechanical Ventilator 28 06/26/17 14:00 86 20 154/95 100 Mechanical Ventilator 28 06/26/17 13:00 81 20 150/73 100 Mechanical Ventilator 28 06/26/17 12:31 106 16 28 06/26/17 12:00 28 06/26/17 12:00 95 06/26/17 12:00 97.8 90 22 160/102 100 Mechanical Ventilator 28 06/26/17 11:00 90 21 165/104 100 Mechanical Ventilator 28 06/26/17 11:00 94 22 28 06/26/17 10:00 85 26 165/89 100 Mechanical Ventilator 28 06/26/17 09:24 74 12 28 06/26/17 09:00 106 24 152/93 100 Mechanical Ventilator 28 Intake and Output 06/26/17 06/27/17 19:00 07:00 Intake Total 2047.50 ml 2006.25 ml Output Total 1290 ml 1200 ml Balance 757.50 ml 806.25 ml IV Total 1447.50 ml 1406.25 ml Tube Feeding 600 ml 600 ml Output Urine Total 1190 ml 1050 ml Stool Total 100 ml 150 ml Laboratory Tests 06/27/17 05:50: White Blood Count 8.2, Red Blood Count 2.57L, Hemoglobin 8.4L, Hematocrit 25.2L , Mean Corpuscular Volume 98, Mean Corpuscular Hemoglobin 32.6H, Mean Corpuscular Hemoglobin Concent 33.1, Red Cell Distribution Width 11.6, Platelet Count 428, Mean Platelet Volume 6.1L, Neutrophils (%) (Auto) 74.5, Lymphocytes ( %) (Auto) 10.7L, Monocytes (%) (Auto) 11.7H, Eosinophils (%) (Auto) 2.0, Basophils (%) (Auto) 1.0, Sodium Level 138, Potassium Level 4.0, Chloride Level 107, Carbon Dioxide Level 23, Anion Gap 9, Blood Urea Nitrogen 21H, Creatinine 2.1H, Estimat Glomerular Filtration Rate 45.2, Glucose Level 217H, Calcium Level 8.9, Total Bilirubin 0.2, Aspartate Amino Transf (AST/SGOT) 52H, Alanine Aminotransferase (ALT/SGPT) 74, Alkaline Phosphatase 51, Total Protein 5.7L, Albumin 1.7L, Globulin 4.0, Albumin/Globulin Ratio 0.4L, Lipase 2220H Height (Feet): 5 Height (Inches): 7.00 Weight (Pounds): 117 EENT: pale conjunctivae Neck: normal alignment Cardiovascular: normal rate Respiratory/Chest: decreased breath sounds Abdomen: normal bowel sounds Edema: no edema noted Arm (L), no edema noted Arm (R), no edema noted Leg (L), no edema noted Leg (R), no edema noted Pedal (L), no edema noted Pedal (R), no edema noted Generalized Objective Current Medications Medications (Trade) Dose Ordered Sig/Conrado Route PRN Reason Start Time Stop Time Status Last Admin Dose Admin Acetaminophen (Tylenol) 650 mg Q4H PRN ORAL Mild Pain/Temp > 100.5 06/16/17 17:45 07/16/17 13:44 06/18/17 00:42 Atropine Sulfate (Atropine 1mg/ml Inj) 0.5 mg EVERY HOUR PRN IVP HR<35 BPM 06/16/17 16:15 07/16/17 16:14 Ceftaroline Fosamil 300 mg/ Sodium Chloride 55 ml @ 55 mls/hr 0800,1999 IVPB 06/25/17 16:30 07/02/17 16:29 06/27/17 08:08 Clonidine HCl (Catapres Tab) 0.1 mg Q2H PRN ORAL SBP Greater than 170 06/18/17 12:30 07/18/17 12:29 06/22/17 20:54 Dextrose (Dextrose 50%) STAT PRN IV Hypoglycemia 06/17/17 08:15 07/17/17 08:14 06/18/17 05:25 Insulin Aspart (NovoLOG) EVERY 4 HOURS SUBQ 06/17/17 09:00 07/17/17 08:59 06/27/17 04:55 Insulin Detemir (Levemir) 28 units Q12HR SUBQ 06/26/17 21:00 07/26/17 20:59 06/26/17 21:00 Lansoprazole (Prevacid) 30 mg DAILY NG 06/22/17 09:00 07/22/17 08:59 06/26/17 08:54 Ondansetron HCl (Zofran) 4 mg Q6H PRN IVP Nausea & Vomiting 06/16/17 19:00 07/16/17 00:59 Piperacillin Sod/ Tazobactam Sod 3.375 gm/Dextrose 110 ml @ 27.5 mls/hr Q8H IVPB 06/16/17 17:00 06/29/17 16:59 06/27/17 00:39 Potassium Chloride 40 meq/ Dextrose 1,020 ml @ 100 mls/hr [id number] IV 06/20/17 18:00 07/20/17 17:59 06/27/17 02:11 Item Value Date Time Bedside Blood Glucose 295 mg/dl H 06/27/17 0455 Bedside Blood Glucose 214 mg/dl H 06/27/17 0100 Bedside Blood Glucose 300 mg/dl H 06/26/17 2101 Bedside Blood Glucose 230 mg/dl H 06/26/17 1700 Bedside Blood Glucose 229 mg/dl H 06/26/17 1300 Bedside Blood Glucose 285 mg/dl H 06/26/17 0900 Bedside Blood Glucose 230 mg/dl H 06/26/17 0448 JADIEL MARCANO Jun 27, 2017 08:14
--- NOTE | 2017-06-27 09:17 | Cardiac Electrophysiology PN ---
Assessment/Plan Assessment/Plan 1. Troponin leak. Levels are flat and likely due to renal failure with creatinine of 3.5. Echocardiogram EF60% 2. Tachycardia due to diabetic ketoacidosis and sepsis. 3. Respiratory failure on Vent. Terminal extubation today pending. 4. Pneumonia, on vancomycin and Zosyn per Dr. Cummings. 5. Pancreatitis. NPO on ivf 6. ARF Cr 3.5, now down to 2.2 7. Marijuana use. 8. Suspect diffuse cerebral anoxia and edema with decorticate rigidity per Dr Cano. 9. Alcohol withdrawal. DW RN Subjective Subjective In ICU on vent. In SR. Unresponsive with decorticate rigidity. RN at bedside.Terminal extubation pending today at 12. Objective Last 24 Hour Vital Signs Date Time Temp Pulse Resp B/P (MAP) Pulse Ox O2 Delivery O2 Flow Rate FiO2 06/27/17 08:00 30 06/27/17 08:00 98.1 105 27 145/92 100 Mechanical Ventilator 28 06/27/17 07:00 99 19 142/92 100 Mechanical Ventilator 28 06/27/17 06:59 114 31 30 06/27/17 06:00 82 19 146/97 100 Mechanical Ventilator 28 06/27/17 05:00 79 19 148/88 100 Mechanical Ventilator 28 06/27/17 04:47 84 22 28 06/27/17 04:00 98.7 82 17 137/83 100 Mechanical Ventilator 28 06/27/17 04:00 82 06/27/17 04:00 28 06/27/17 03:30 80 17 28 06/27/17 03:00 71 19 143/89 100 Mechanical Ventilator 28 06/27/17 02:00 72 19 146/101 100 Mechanical Ventilator 28 06/27/17 01:30 102 28 28 06/27/17 01:00 91 21 185/91 100 Mechanical Ventilator 28 06/27/17 00:00 99.0 91 21 129/77 100 Mechanical Ventilator 28 06/27/17 00:00 28 06/27/17 00:00 66 06/26/17 23:13 78 22 28 06/26/17 23:00 69 18 149/69 100 Mechanical Ventilator 28 06/26/17 22:00 63 21 127/73 100 Mechanical Ventilator 28 06/26/17 21:24 77 21 28 06/26/17 21:00 87 21 149/88 100 Mechanical Ventilator 28 06/26/17 20:00 87 06/26/17 20:00 28 06/26/17 20:00 98.7 74 21 125/91 100 Mechanical Ventilator 28 06/26/17 19:30 80 20 28 06/26/17 19:30 79 20 28 06/26/17 19:00 70 15 126/69 100 Mechanical Ventilator 28 06/26/17 18:51 110 20 Mechanical Ventilator 06/26/17 18:00 66 16 150/92 100 Mechanical Ventilator 28 06/26/17 17:05 74 18 28 06/26/17 17:00 79 21 136/81 100 Mechanical Ventilator 28 06/26/17 16:00 28 06/26/17 16:00 94 06/26/17 16:00 99.0 87 21 152/91 100 Mechanical Ventilator 28 06/26/17 15:29 79 18 28 06/26/17 15:00 84 21 152/92 100 Mechanical Ventilator 28 06/26/17 14:00 86 20 154/95 100 Mechanical Ventilator 28 06/26/17 13:00 81 20 150/73 100 Mechanical Ventilator 28 06/26/17 12:31 106 16 28 06/26/17 12:00 28 06/26/17 12:00 95 06/26/17 12:00 97.8 90 22 160/102 100 Mechanical Ventilator 28 06/26/17 11:00 90 21 165/104 100 Mechanical Ventilator 28 06/26/17 11:00 94 22 28 06/26/17 10:00 85 26 165/89 100 Mechanical Ventilator 28 06/26/17 09:24 74 12 28 Intake and Output 06/26/17 06/27/17 19:00 07:00 Intake Total 2047.50 ml 2006.25 ml Output Total 1290 ml 1200 ml Balance 757.50 ml 806.25 ml IV Total 1447.50 ml 1406.25 ml Tube Feeding 600 ml 600 ml Output Urine Total 1190 ml 1050 ml Stool Total 100 ml 150 ml Laboratory Tests Test 06/27/17 05:50 White Blood Count 8.2 K/UL (4.8-10.8) Red Blood Count 2.57 M/UL (4.70-6.10) L Hemoglobin 8.4 G/DL (14.2-18.0) L Hematocrit 25.2 % (42.0-52.0) L Mean Corpuscular Volume 98 FL (80-99) Mean Corpuscular Hemoglobin 32.6 PG (27.0-31.0) H Mean Corpuscular Hemoglobin Concent 33.1 G/DL (32.0-36.0) Red Cell Distribution Width 11.6 % (11.6-14.8) Platelet Count 428 K/UL (150-450) Mean Platelet Volume 6.1 FL (6.5-10.1) L Neutrophils (%) (Auto) 74.5 % (45.0-75.0) Lymphocytes (%) (Auto) 10.7 % (20.0-45.0) L Monocytes (%) (Auto) 11.7 % (1.0-10.0) H Eosinophils (%) (Auto) 2.0 % (0.0-3.0) Basophils (%) (Auto) 1.0 % (0.0-2.0) Sodium Level 138 MMOL/L (136-145) Potassium Level 4.0 MMOL/L (3.5-5.1) Chloride Level 107 MMOL/L (98-107) Carbon Dioxide Level 23 MMOL/L (21-32) Anion Gap 9 mmol/L (5-15) Blood Urea Nitrogen 21 mg/dL (7-18) H Creatinine 2.1 MG/DL (0.55-1.30) H Estimat Glomerular Filtration Rate 45.2 mL/min (>60) Glucose Level 217 MG/DL (74-106) H Calcium Level 8.9 MG/DL (8.5-10.1) Total Bilirubin 0.2 MG/DL (0.2-1.0) Aspartate Amino Transf (AST/SGOT) 52 U/L (15-37) H Alanine Aminotransferase (ALT/SGPT) 74 U/L (12-78) Alkaline Phosphatase 51 U/L (46-116) Total Protein 5.7 G/DL (6.4-8.2) L Albumin 1.7 G/DL (3.4-5.0) L Globulin 4.0 g/dL Albumin/Globulin Ratio 0.4 (1.0-2.7) L Lipase 2220 U/L (73-393) H Objective HEAD AND NECK: No JVD.Orally intubated. OG tube in LUNGS: Clear. CARDIOVASCULAR: Regular S1 and S2 with no gallop or murmur. ABDOMEN: Soft and nontender. EXTREMITIES: No pitting edema. ALBERT ROWAN Jun 27, 2017 09:17
[2017-06-27] MEDS: Levemir Flexpen SUBQ SCH (09:54)
[2017-06-27] MEDS ORDERED: Morphine Sulfate 4mg/ml Inj SUBQ PRN (11:00)
[2017-06-27] MEDS ORDERED: Rate Change PCA 1 Each MISC PRN ×3 (11:00→21:15)
[2017-06-27] MEDS ORDERED: PCA Morphine 1mg/ml 30 ML IV PRN ×4 (11:00→21:15)
[2017-06-27] MEDS ORDERED: Morphine Sulfate 2mg/ml Inj IV PRN ×2 (11:00→21:30)
--- NOTE | 2017-06-27 12:47 | GI Progress Note ---
Assessment/Plan Problems: (1) Shock liver ICD Codes: K72.00 - Acute and subacute hepatic failure without coma SNOMED: 285008778 (2) Anoxic cerebral edema ICD Codes: G93.6 - Cerebral edema; R09.02 - Hypoxemia SNOMED: 6169906, 705038605 (3) Transaminitis ICD Codes: R74.0 - Nonspecific elevation of levels of transaminase and lactic acid dehydrogenase [LDH] SNOMED: 686919581, 651377447 (4) Alcohol withdrawal ICD Codes: F10.239 - Alcohol dependence with withdrawal, unspecified SNOMED: 395735964 (5) Pancreatitis ICD Codes: K85.90 - Acute pancreatitis without necrosis or infection, unspecified SNOMED: 52985124 Assessment/Plan terminal extubation today Subjective Subjective limited Objective Last 24 Hour Vital Signs Date Time Temp Pulse Resp B/P (MAP) Pulse Ox O2 Delivery O2 Flow Rate FiO2 06/27/17 12:00 69 23 143/93 83 Non-Rebreather 15.0 06/27/17 11:00 86 21 154/100 100 Mechanical Ventilator 28 06/27/17 10:44 84 17 30 06/27/17 10:00 101 26 164/96 100 Mechanical Ventilator 28 06/27/17 09:16 86 18 30 06/27/17 09:00 102 21 153/98 100 Mechanical Ventilator 28 06/27/17 08:00 30 06/27/17 08:00 98.1 105 27 145/92 100 Mechanical Ventilator 28 06/27/17 08:00 77 06/27/17 07:00 99 19 142/92 100 Mechanical Ventilator 28 06/27/17 06:59 114 31 30 06/27/17 06:00 82 19 146/97 100 Mechanical Ventilator 28 06/27/17 05:00 79 19 148/88 100 Mechanical Ventilator 28 06/27/17 04:47 84 22 28 06/27/17 04:00 98.7 82 17 137/83 100 Mechanical Ventilator 28 06/27/17 04:00 82 06/27/17 04:00 28 06/27/17 03:30 80 17 28 06/27/17 03:00 71 19 143/89 100 Mechanical Ventilator 28 06/27/17 02:00 72 19 146/101 100 Mechanical Ventilator 28 06/27/17 01:30 102 28 28 06/27/17 01:00 91 21 185/91 100 Mechanical Ventilator 28 06/27/17 00:00 99.0 91 21 129/77 100 Mechanical Ventilator 28 06/27/17 00:00 28 06/27/17 00:00 66 06/26/17 23:13 78 22 28 06/26/17 23:00 69 18 149/69 100 Mechanical Ventilator 28 06/26/17 22:00 63 21 127/73 100 Mechanical Ventilator 28 06/26/17 21:24 77 21 28 06/26/17 21:00 87 21 149/88 100 Mechanical Ventilator 28 06/26/17 20:00 87 06/26/17 20:00 28 06/26/17 20:00 98.7 74 21 125/91 100 Mechanical Ventilator 28 06/26/17 19:30 80 20 28 06/26/17 19:30 79 20 28 06/26/17 19:00 70 15 126/69 100 Mechanical Ventilator 28 06/26/17 18:51 110 20 Mechanical Ventilator 06/26/17 18:00 66 16 150/92 100 Mechanical Ventilator 28 06/26/17 17:05 74 18 28 06/26/17 17:00 79 21 136/81 100 Mechanical Ventilator 28 06/26/17 16:00 28 06/26/17 16:00 94 06/26/17 16:00 99.0 87 21 152/91 100 Mechanical Ventilator 28 06/26/17 15:29 79 18 28 06/26/17 15:00 84 21 152/92 100 Mechanical Ventilator 28 06/26/17 14:00 86 20 154/95 100 Mechanical Ventilator 28 06/26/17 13:00 81 20 150/73 100 Mechanical Ventilator 28 Intake and Output 06/26/17 06/27/17 19:00 07:00 Intake Total 2047.50 ml 2006.25 ml Output Total 1290 ml 1200 ml Balance 757.50 ml 806.25 ml IV Total 1447.50 ml 1406.25 ml Tube Feeding 600 ml 600 ml Output Urine Total 1190 ml 1050 ml Stool Total 100 ml 150 ml Laboratory Tests Test 06/27/17 05:50 White Blood Count 8.2 K/UL (4.8-10.8) Red Blood Count 2.57 M/UL (4.70-6.10) L Hemoglobin 8.4 G/DL (14.2-18.0) L Hematocrit 25.2 % (42.0-52.0) L Mean Corpuscular Volume 98 FL (80-99) Mean Corpuscular Hemoglobin 32.6 PG (27.0-31.0) H Mean Corpuscular Hemoglobin Concent 33.1 G/DL (32.0-36.0) Red Cell Distribution Width 11.6 % (11.6-14.8) Platelet Count 428 K/UL (150-450) Mean Platelet Volume 6.1 FL (6.5-10.1) L Neutrophils (%) (Auto) 74.5 % (45.0-75.0) Lymphocytes (%) (Auto) 10.7 % (20.0-45.0) L Monocytes (%) (Auto) 11.7 % (1.0-10.0) H Eosinophils (%) (Auto) 2.0 % (0.0-3.0) Basophils (%) (Auto) 1.0 % (0.0-2.0) Sodium Level 138 MMOL/L (136-145) Potassium Level 4.0 MMOL/L (3.5-5.1) Chloride Level 107 MMOL/L (98-107) Carbon Dioxide Level 23 MMOL/L (21-32) Anion Gap 9 mmol/L (5-15) Blood Urea Nitrogen 21 mg/dL (7-18) H Creatinine 2.1 MG/DL (0.55-1.30) H Estimat Glomerular Filtration Rate 45.2 mL/min (>60) Glucose Level 217 MG/DL (74-106) H Calcium Level 8.9 MG/DL (8.5-10.1) Total Bilirubin 0.2 MG/DL (0.2-1.0) Aspartate Amino Transf (AST/SGOT) 52 U/L (15-37) H Alanine Aminotransferase (ALT/SGPT) 74 U/L (12-78) Alkaline Phosphatase 51 U/L (46-116) Total Protein 5.7 G/DL (6.4-8.2) L Albumin 1.7 G/DL (3.4-5.0) L Globulin 4.0 g/dL Albumin/Globulin Ratio 0.4 (1.0-2.7) L Lipase 2220 U/L (73-393) H Height (Feet): 5 Height (Inches): 7.00 Weight (Pounds): 117 Lashawn Mason N.P. Jun 27, 2017 12:46
--- NOTE | 2017-06-27 12:58 | Pulmonology Progress Note ---
Assessment/Plan Assessment/Plan IMPRESSION: 1. Respiratory failure 2. Cannabis usage. 3. Diabetic ketoacidosis. 4. Troponin leak. 5. Tachycardia. 6. AMS; suspect anoxic brain injury DISCUSSION: Continue present management and care. continue vent settings to AC of 10, tidal volume 550, FiO2 80%. Ammonia is normal Reviewed neurology notes Continue vent/ AC mode Poor prognosis Possible terminal extubation today Subjective Interval Events: No changes Constitutional: Reports: no symptoms HEENT: Repors: no symptoms Respiratory: Reports: no symptoms Cardiovascular: Reports: no symptoms Gastrointestinal/Abdominal: Reports: no symptoms Allergies: Coded Allergies: No Known Allergies (Unverified , 06/15/17) Objective Last 24 Hour Vital Signs Date Time Temp Pulse Resp B/P (MAP) Pulse Ox O2 Delivery O2 Flow Rate FiO2 06/27/17 12:00 69 23 143/93 83 Non-Rebreather 15.0 06/27/17 11:00 86 21 154/100 100 Mechanical Ventilator 28 06/27/17 10:44 84 17 30 06/27/17 10:00 101 26 164/96 100 Mechanical Ventilator 28 06/27/17 09:16 86 18 30 06/27/17 09:00 102 21 153/98 100 Mechanical Ventilator 28 06/27/17 08:00 30 06/27/17 08:00 98.1 105 27 145/92 100 Mechanical Ventilator 28 06/27/17 08:00 77 06/27/17 07:00 99 19 142/92 100 Mechanical Ventilator 28 06/27/17 06:59 114 31 30 06/27/17 06:00 82 19 146/97 100 Mechanical Ventilator 28 06/27/17 05:00 79 19 148/88 100 Mechanical Ventilator 28 06/27/17 04:47 84 22 28 06/27/17 04:00 98.7 82 17 137/83 100 Mechanical Ventilator 28 06/27/17 04:00 82 06/27/17 04:00 28 06/27/17 03:30 80 17 28 06/27/17 03:00 71 19 143/89 100 Mechanical Ventilator 28 06/27/17 02:00 72 19 146/101 100 Mechanical Ventilator 28 06/27/17 01:30 102 28 28 06/27/17 01:00 91 21 185/91 100 Mechanical Ventilator 28 06/27/17 00:00 99.0 91 21 129/77 100 Mechanical Ventilator 28 06/27/17 00:00 28 06/27/17 00:00 66 06/26/17 23:13 78 22 28 06/26/17 23:00 69 18 149/69 100 Mechanical Ventilator 28 06/26/17 22:00 63 21 127/73 100 Mechanical Ventilator 28 06/26/17 21:24 77 21 28 06/26/17 21:00 87 21 149/88 100 Mechanical Ventilator 28 06/26/17 20:00 87 06/26/17 20:00 28 06/26/17 20:00 98.7 74 21 125/91 100 Mechanical Ventilator 28 06/26/17 19:30 80 20 28 06/26/17 19:30 79 20 28 06/26/17 19:00 70 15 126/69 100 Mechanical Ventilator 28 06/26/17 18:51 110 20 Mechanical Ventilator 06/26/17 18:00 66 16 150/92 100 Mechanical Ventilator 28 06/26/17 17:05 74 18 28 06/26/17 17:00 79 21 136/81 100 Mechanical Ventilator 28 06/26/17 16:00 28 06/26/17 16:00 94 06/26/17 16:00 99.0 87 21 152/91 100 Mechanical Ventilator 28 06/26/17 15:29 79 18 28 06/26/17 15:00 84 21 152/92 100 Mechanical Ventilator 28 06/26/17 14:00 86 20 154/95 100 Mechanical Ventilator 28 06/26/17 13:00 81 20 150/73 100 Mechanical Ventilator 28 Intake and Output 06/26/17 06/27/17 19:00 07:00 Intake Total 2047.50 ml 2006.25 ml Output Total 1290 ml 1200 ml Balance 757.50 ml 806.25 ml IV Total 1447.50 ml 1406.25 ml Tube Feeding 600 ml 600 ml Output Urine Total 1190 ml 1050 ml Stool Total 100 ml 150 ml General Appearance: no acute distress HEENT: normocephalic Respiratory/Chest: chest wall non-tender, lungs clear Cardiovascular: normal peripheral pulses, normal rate Laboratory Tests 06/27/17 05:50: White Blood Count 8.2, Red Blood Count 2.57L, Hemoglobin 8.4L, Hematocrit 25.2L , Mean Corpuscular Volume 98, Mean Corpuscular Hemoglobin 32.6H, Mean Corpuscular Hemoglobin Concent 33.1, Red Cell Distribution Width 11.6, Platelet Count 428, Mean Platelet Volume 6.1L, Neutrophils (%) (Auto) 74.5, Lymphocytes ( %) (Auto) 10.7L, Monocytes (%) (Auto) 11.7H, Eosinophils (%) (Auto) 2.0, Basophils (%) (Auto) 1.0, Sodium Level 138, Potassium Level 4.0, Chloride Level 107, Carbon Dioxide Level 23, Anion Gap 9, Blood Urea Nitrogen 21H, Creatinine 2.1H, Estimat Glomerular Filtration Rate 45.2, Glucose Level 217H, Calcium Level 8.9, Total Bilirubin 0.2, Aspartate Amino Transf (AST/SGOT) 52H, Alanine Aminotransferase (ALT/SGPT) 74, Alkaline Phosphatase 51, Total Protein 5.7L, Albumin 1.7L, Globulin 4.0, Albumin/Globulin Ratio 0.4L, Lipase 2220H Current Medications Medications (Trade) Dose Ordered Sig/Conrado Route PRN Reason Start Time Stop Time Status Last Admin Dose Admin Acetaminophen (Tylenol) 650 mg Q4H PRN ORAL Mild Pain/Temp > 100.5 06/16/17 17:45 07/16/17 13:44 06/18/17 00:42 Ceftaroline Fosamil 300 mg/ Sodium Chloride 55 ml @ 55 mls/hr IVPB 06/25/17 16:30 07/02/17 16:29 06/27/17 08:08 Clonidine HCl (Catapres Tab) 0.1 mg Q2H PRN ORAL SBP Greater than 170 06/18/17 12:30 07/18/17 12:29 06/22/17 20:54 Lansoprazole (Prevacid) 30 mg DAILY NG 06/22/17 09:00 07/22/17 08:59 06/27/17 09:48 Miscellaneous Medication (WILD ANIMAL CARETAKER Rate Change) 1 ea PRN MISC rate change 06/27/17 11:00 06/29/17 10:59 Miscellaneous Medication (WILD ANIMAL CARETAKER shift volume) 1 ea Q12HR@0700,1900 MISC 06/27/17 19:00 06/29/17 18:59 Morphine Sulfate 30 ml @ 0 mls/hr WILD ANIMAL CARETAKER Protocol PRN IV For Pain 06/27/17 11:00 06/29/17 10:59 06/27/17 11:50 Morphine Sulfate (Morphine Sulfate) 2 mg Q2H PRN IV Moderate Pain (Pain Scale 4-6) 06/27/17 11:00 06/29/17 10:59 Morphine Sulfate (Morphine Sulfate) 4 mg Q3H PRN SUBQ Severe Pain (Pain Scale 7-10) 06/27/17 11:00 06/29/17 10:59 Naloxone HCl (Narcan) 0.1 mg PRN IV RR<10/MIN OR SBP<90mmHg 06/27/17 11:00 06/29/17 10:59 Ondansetron HCl (Zofran) 4 mg Q6H PRN IVP Nausea & Vomiting 06/16/17 19:00 07/16/17 00:59 Paulo Floyd MD Jun 27, 2017 12:58
--- NOTE | 2017-06-27 15:14 | Infectious Diseases Prog Note ---
Assessment/Plan Problems: (1) Pneumonia Assessment & Plan: suspect aspiration due to altered mental status , off zosyn and ceftaroline empiric coverage now on comfort measures (2) Sepsis Assessment & Plan: due to the above, blood culture is negative , off antibiotics for comfort measures (3) Pancreatitis Assessment & Plan: suspect due to alcohol abuse, with no significant improvement (4) Cardiopulmonary arrest Assessment & Plan: extubated from mechanical ventilation , as per pulmonary team and family request (5) Anoxic cerebral edema Assessment & Plan: with no improvement, neurology is following , has poor prognosis , no tracheostomy, or PEG tube placement as per family , now on comfort measures Subjective ROS Limited/Unobtainable: Yes Allergies: Coded Allergies: No Known Allergies (Unverified , 06/15/17) Subjective he is now extubated, unresponsive, postural and spastic in the lower extremities , on morphine drip for comfort measures afebrile, family at bed side Objective Vital Signs Last 24 Hour Vital Signs Date Time Temp Pulse Resp B/P (MAP) Pulse Ox O2 Delivery O2 Flow Rate FiO2 06/27/17 14:00 78 21 116/87 100 Mechanical Ventilator 06/27/17 12:58 15.0 28 06/27/17 12:00 94 06/27/17 12:00 69 23 143/93 83 Non-Rebreather 15.0 06/27/17 11:00 86 21 154/100 100 Mechanical Ventilator 06/27/17 10:44 84 17 30 06/27/17 10:00 101 26 164/96 100 Mechanical Ventilator 28 06/27/17 09:16 86 18 30 06/27/17 09:00 102 21 153/98 100 Mechanical Ventilator 28 06/27/17 08:00 30 06/27/17 08:00 98.1 105 27 145/92 100 Mechanical Ventilator 28 06/27/17 08:00 77 06/27/17 07:00 99 19 142/92 100 Mechanical Ventilator 28 06/27/17 06:59 114 31 30 06/27/17 06:00 82 19 146/97 100 Mechanical Ventilator 28 06/27/17 05:00 79 19 148/88 100 Mechanical Ventilator 28 06/27/17 04:47 84 22 28 06/27/17 04:00 98.7 82 17 137/83 100 Mechanical Ventilator 28 06/27/17 04:00 82 06/27/17 04:00 28 1/17/18 03:30 80 17 28 06/27/17 03:00 71 19 143/89 100 Mechanical Ventilator 28 06/27/17 02:00 72 19 146/101 100 Mechanical Ventilator 28 06/27/17 01:30 102 28 28 06/27/17 01:00 91 21 185/91 100 Mechanical Ventilator 28 06/27/17 00:00 99.0 91 21 129/77 100 Mechanical Ventilator 28 06/27/17 00:00 28 06/27/17 00:00 66 06/26/17 23:13 78 22 28 06/26/17 23:00 69 18 149/69 100 Mechanical Ventilator 28 06/26/17 22:00 63 21 127/73 100 Mechanical Ventilator 28 06/26/17 21:24 77 21 28 06/26/17 21:00 87 21 149/88 100 Mechanical Ventilator 28 06/26/17 20:00 87 06/26/17 20:00 28 06/26/17 20:00 98.7 74 21 125/91 100 Mechanical Ventilator 28 06/26/17 19:30 80 20 28 06/26/17 19:30 79 20 28 06/26/17 19:00 70 15 126/69 100 Mechanical Ventilator 28 06/26/17 18:51 110 20 Mechanical Ventilator 06/26/17 18:00 66 16 150/92 100 Mechanical Ventilator 28 06/26/17 17:05 74 18 28 06/26/17 17:00 79 21 136/81 100 Mechanical Ventilator 28 06/26/17 16:00 28 06/26/17 16:00 94 06/26/17 16:00 99.0 87 21 152/91 100 Mechanical Ventilator 28 06/26/17 15:29 79 18 28 Height (Feet): 5 Height (Inches): 7.00 Weight (Pounds): 117 General Appearance: no acute distress HEENT: atraumatic, anicteric, mucous membranes moist Respiratory/Chest: no respiratory distress, no accessory muscle use, decreased breath sounds Cardiovascular: normal peripheral pulses, normal rate, regular rhythm, no gallop/murmur, no JVD Abdomen: normal bowel sounds, soft, non tender, no organomegaly, non distended , no mass Extremities: no cyanosis, no clubbing Skin: no rash, no lesions, no ulcers Neurologic/Psychiatric: unresponsiveness, aphasia Laboratory Tests Test 1/17/18 05:50 White Blood Count 8.2 K/UL (4.8-10.8) Red Blood Count 2.57 M/UL (4.70-6.10) L Hemoglobin 8.4 G/DL (14.2-18.0) L Hematocrit 25.2 % (42.0-52.0) L Mean Corpuscular Volume 98 FL (80-99) Mean Corpuscular Hemoglobin 32.6 PG (27.0-31.0) H Mean Corpuscular Hemoglobin Concent 33.1 G/DL (32.0-36.0) Red Cell Distribution Width 11.6 % (11.6-14.8) Platelet Count 428 K/UL (150-450) Mean Platelet Volume 6.1 FL (6.5-10.1) L Neutrophils (%) (Auto) 74.5 % (45.0-75.0) Lymphocytes (%) (Auto) 10.7 % (20.0-45.0) L Monocytes (%) (Auto) 11.7 % (1.0-10.0) H Eosinophils (%) (Auto) 2.0 % (0.0-3.0) Basophils (%) (Auto) 1.0 % (0.0-2.0) Sodium Level 138 MMOL/L (136-145) Potassium Level 4.0 MMOL/L (3.5-5.1) Chloride Level 107 MMOL/L (98-107) Carbon Dioxide Level 23 MMOL/L (21-32) Anion Gap 9 mmol/L (5-15) Blood Urea Nitrogen 21 mg/dL (7-18) H Creatinine 2.1 MG/DL (0.55-1.30) H Estimat Glomerular Filtration Rate 45.2 mL/min (>60) Glucose Level 217 MG/DL (74-106) H Calcium Level 8.9 MG/DL (8.5-10.1) Total Bilirubin 0.2 MG/DL (0.2-1.0) Aspartate Amino Transf (AST/SGOT) 52 U/L (15-37) H Alanine Aminotransferase (ALT/SGPT) 74 U/L (12-78) Alkaline Phosphatase 51 U/L (46-116) Total Protein 5.7 G/DL (6.4-8.2) L Albumin 1.7 G/DL (3.4-5.0) L Globulin 4.0 g/dL Albumin/Globulin Ratio 0.4 (1.0-2.7) L Lipase 2220 U/L (73-393) H Current Medications Medications (Trade) Dose Ordered Sig/Conrado Route PRN Reason Start Time Stop Time Status Last Admin Dose Admin Miscellaneous Medication (FIELD SERVICE REPRESENTATIVE Rate Change) 1 ea PRN MISC rate change 06/27/17 11:00 06/29/17 10:59 Miscellaneous Medication (FIELD SERVICE REPRESENTATIVE shift volume) 1 ea Q12HR@0700,1900 MISC 06/27/17 19:00 06/29/17 18:59 Morphine Sulfate 30 ml @ 1 mls/hr FIELD SERVICE REPRESENTATIVE Protocol PRN IV For Pain 06/27/17 14:15 06/29/17 10:59 Morphine Sulfate (Morphine Sulfate) 2 mg Q2H PRN IV Moderate Pain (Pain Scale 4-6) 06/27/17 11:00 06/29/17 10:59 Saad Cummings M.D. Jun 27, 2017 15:14
--- NOTE | 2017-06-27 17:58 | Nephrology Progress Note ---
Assessment/Plan Problem List: (1) Hypernatremia Assessment: corrected (2) Hypokalemia Assessment: corrected (3) Fever (4) Acidosis (5) Respiratory distress (6) Pancreatitis (7) Elevated troponin (8) Alcohol withdrawal (9) Pneumonia (10) Sepsis (11) Cardiopulmonary arrest (12) Metabolic acidosis (13) DKA (diabetic ketoacidosis) Plan On comfort measures Continue morphine drip Stable vitals Subjective ROS Limited/Unobtainable: Yes Subjective Extubated, unresponsive, postural and spastic in the lower extremities , on morphine drip for comfort measures, afebrile, family at bed side Objective Objective Last 24 Hour Vital Signs Date Time Temp Pulse Resp B/P (MAP) Pulse Ox O2 Delivery O2 Flow Rate FiO2 06/27/17 17:00 78 15 130/78 100 Non-Rebreather 06/27/17 16:53 Non-Rebreather 15.0 100 06/27/17 16:00 65 20 118/87 100 Non-Rebreather 06/27/17 16:00 60 06/27/17 15:00 99.2 68 22 109/73 100 Non-Rebreather 06/27/17 14:00 78 21 116/87 100 Mechanical Ventilator 28 06/27/17 12:58 15.0 28 06/27/17 12:00 94 06/27/17 12:00 69 23 143/93 83 Non-Rebreather 15.0 06/27/17 11:00 86 21 154/100 100 Mechanical Ventilator 28 06/27/17 10:44 84 17 30 06/27/17 10:00 101 26 164/96 100 Mechanical Ventilator 28 06/27/17 09:16 86 18 30 06/27/17 09:00 102 21 153/98 100 Mechanical Ventilator 28 06/27/17 08:00 30 06/27/17 08:00 98.1 105 27 145/92 100 Mechanical Ventilator 28 06/27/17 08:00 77 06/27/17 07:00 99 19 142/92 100 Mechanical Ventilator 28 06/27/17 06:59 114 31 30 06/27/17 06:00 82 19 146/97 100 Mechanical Ventilator 28 06/27/17 05:00 79 19 148/88 100 Mechanical Ventilator 28 06/27/17 04:47 84 22 28 06/27/17 04:00 98.7 82 17 137/83 100 Mechanical Ventilator 28 06/27/17 04:00 82 06/27/17 04:00 28 06/27/17 03:30 80 17 28 06/27/17 03:00 71 19 143/89 100 Mechanical Ventilator 28 06/27/17 02:00 72 19 146/101 100 Mechanical Ventilator 28 06/27/17 01:30 102 28 28 06/27/17 01:00 91 21 185/91 100 Mechanical Ventilator 28 06/27/17 00:00 99.0 91 21 129/77 100 Mechanical Ventilator 28 06/27/17 00:00 28 06/27/17 00:00 66 06/26/17 23:13 78 22 28 06/26/17 23:00 69 18 149/69 100 Mechanical Ventilator 28 06/26/17 22:00 63 21 127/73 100 Mechanical Ventilator 28 06/26/17 21:24 77 21 28 06/26/17 21:00 87 21 149/88 100 Mechanical Ventilator 28 06/26/17 20:00 87 06/26/17 20:00 28 06/26/17 20:00 98.7 74 21 125/91 100 Mechanical Ventilator 28 06/26/17 19:30 80 20 28 06/26/17 19:30 79 20 28 06/26/17 19:00 70 15 126/69 100 Mechanical Ventilator 28 06/26/17 18:51 110 20 Mechanical Ventilator 06/26/17 18:00 66 16 150/92 100 Mechanical Ventilator 28 Intake and Output 06/26/17 06/27/17 19:00 07:00 Intake Total 2047.50 ml 2006.25 ml Output Total 1290 ml 1200 ml Balance 757.50 ml 806.25 ml IV Total 1447.50 ml 1406.25 ml Tube Feeding 600 ml 600 ml Output Urine Total 1190 ml 1050 ml Stool Total 100 ml 150 ml Laboratory Tests 06/27/17 05:50: White Blood Count 8.2, Red Blood Count 2.57L, Hemoglobin 8.4L, Hematocrit 25.2L , Mean Corpuscular Volume 98, Mean Corpuscular Hemoglobin 32.6H, Mean Corpuscular Hemoglobin Concent 33.1, Red Cell Distribution Width 11.6, Platelet Count 428, Mean Platelet Volume 6.1L, Neutrophils (%) (Auto) 74.5, Lymphocytes ( %) (Auto) 10.7L, Monocytes (%) (Auto) 11.7H, Eosinophils (%) (Auto) 2.0, Basophils (%) (Auto) 1.0, Sodium Level 138, Potassium Level 4.0, Chloride Level 107, Carbon Dioxide Level 23, Anion Gap 9, Blood Urea Nitrogen 21H, Creatinine 2.1H, Estimat Glomerular Filtration Rate 45.2, Glucose Level 217H, Calcium Level 8.9, Total Bilirubin 0.2, Aspartate Amino Transf (AST/SGOT) 52H, Alanine Aminotransferase (ALT/SGPT) 74, Alkaline Phosphatase 51, Total Protein 5.7L, Albumin 1.7L, Globulin 4.0, Albumin/Globulin Ratio 0.4L, Lipase 2220H Height (Feet): 5 Height (Inches): 7.00 Weight (Pounds): 117 General Appearance: no apparent distress EENT: normal ENT inspection Cardiovascular: no JVD Respiratory/Chest: decreased breath sounds Abdomen: soft Genitourinary/Rectal: other - carpenter Extremities: other - spastic Neurologic: unresponsive Hannah Johnson N.P. Jun 27, 2017 17:58
[2017-06-27] MEDS ORDERED: PCA shift volume MISC SCH (19:00)
[2017-06-28] VITALS: BP 157/91
[2017-06-28 04:00] VITALS: BP 123/75
[2017-06-28] MEDS: PCA shift volume MISC SCH ×2 (07:04→19:22)
[2017-06-28 08:00] VITALS: BP 139/85
--- NOTE | 2017-06-28 10:11 | Nephrology Progress Note ---
Assessment/Plan Problem List: (1) DKA (diabetic ketoacidosis) (2) Elevated troponin (3) Pancreatitis (4) Hyponatremia Assessment: corrected (5) Acidosis (6) Respiratory distress Assessment: now intubated (7) Fever (8) Pneumonia Assessment: aspiration? (9) Sepsis (10) Alcohol withdrawal (11) Metabolic acidosis (12) Cardiopulmonary arrest Plan comfort measures only. on morphine gtt. d./w Dr. Matson. Subjective Subjective terminally extubated. Family at bedside. on morphine gtt. Objective Objective Last 24 Hour Vital Signs Date Time Temp Pulse Resp B/P (MAP) Pulse Ox O2 Delivery O2 Flow Rate FiO2 06/28/17 09:00 16 06/28/17 08:00 98.0 60 20 139/85 100 06/28/17 08:00 16 06/28/17 07:00 16 06/28/17 06:00 16 06/28/17 05:00 16 06/28/17 04:00 15 06/28/17 04:00 97.4 61 20 123/75 100 06/28/17 03:00 17 06/28/17 02:00 15 06/28/17 01:00 15 06/28/17 00:00 97.6 61 18 157/91 98 06/28/17 00:00 16 06/27/17 22:42 15 06/27/17 21:00 59 12 132/85 100 Non-Rebreather 06/27/17 20:30 60 12 126/29 100 Non-Rebreather 06/27/17 20:13 56 06/27/17 20:00 97.5 58 12 128/81 100 Non-Rebreather 06/27/17 19:00 61 17 130/88 100 Non-Rebreather 06/27/17 18:00 59 14 130/80 100 Non-Rebreather 06/27/17 17:00 78 15 130/78 100 Non-Rebreather 06/27/17 16:53 Non-Rebreather 15.0 100 06/27/17 16:00 65 20 118/87 100 Non-Rebreather 06/27/17 16:00 60 06/27/17 15:00 99.2 68 22 109/73 100 Non-Rebreather 06/27/17 14:00 78 21 116/87 100 Mechanical Ventilator 28 06/27/17 12:58 15.0 28 06/27/17 12:00 94 06/27/17 12:00 69 23 143/93 83 Non-Rebreather 15.0 06/27/17 11:00 86 21 154/100 100 Mechanical Ventilator 06/27/17 10:44 84 17 30 Intake and Output 06/27/17 06/28/17 19:00 07:00 Intake Total 916 ml 5 ml Output Total 1625 ml 680 ml Balance -709 ml -675 ml IV Total 666 ml 5 ml Tube Feeding 250 ml Output Urine Total 1020 ml 680 ml Stool Total 605 ml 0 ml Height (Feet): 5 Height (Inches): 7.00 Weight (Pounds): 153 General Appearance: no apparent distress Cardiovascular: normal rate, regular rhythm Respiratory/Chest: lungs clear Abdomen: non tender, soft Extremities: non-pitting Neurologic: unresponsive SOFIA HAYES Jun 28, 2017 10:11
--- NOTE | 2017-06-28 11:49 | GI Progress Note ---
Assessment/Plan Problems: (1) Shock liver ICD Codes: K72.00 - Acute and subacute hepatic failure without coma SNOMED: 288987013 (2) Anoxic cerebral edema ICD Codes: G93.6 - Cerebral edema; R09.02 - Hypoxemia SNOMED: 9634979, 525168950 (3) Transaminitis ICD Codes: R74.0 - Nonspecific elevation of levels of transaminase and lactic acid dehydrogenase [LDH] SNOMED: 798180090, 794446275 (4) Alcohol withdrawal ICD Codes: F10.239 - Alcohol dependence with withdrawal, unspecified SNOMED: 905849013 (5) Pancreatitis ICD Codes: K85.90 - Acute pancreatitis without necrosis or infection, unspecified SNOMED: 44070339 Status: unchanged Assessment/Plan comfort care Subjective Subjective limited Objective Last 24 Hour Vital Signs Date Time Temp Pulse Resp B/P (MAP) Pulse Ox O2 Delivery O2 Flow Rate FiO2 06/28/17 11:00 16 06/28/17 10:00 16 06/28/17 09:00 16 06/28/17 08:00 98.0 60 20 139/85 100 06/28/17 08:00 16 06/28/17 07:00 16 06/28/17 06:00 16 06/28/17 05:00 16 06/28/17 04:00 15 06/28/17 04:00 97.4 61 20 123/75 100 06/28/17 03:00 17 06/28/17 02:00 15 06/28/17 01:00 15 06/28/17 00:00 97.6 61 18 157/91 98 06/28/17 00:00 16 06/27/17 22:42 15 06/27/17 21:00 59 12 132/85 100 Non-Rebreather 06/27/17 20:30 60 12 126/29 100 Non-Rebreather 06/27/17 20:13 56 06/27/17 20:00 97.5 58 12 128/81 100 Non-Rebreather 06/27/17 19:00 61 17 130/88 100 Non-Rebreather 06/27/17 18:00 59 14 130/80 100 Non-Rebreather 06/27/17 17:00 78 15 130/78 100 Non-Rebreather 06/27/17 16:53 Non-Rebreather 15.0 100 06/27/17 16:00 65 20 118/87 100 Non-Rebreather 06/27/17 16:00 60 06/27/17 15:00 99.2 68 22 109/73 100 Non-Rebreather 06/27/17 14:00 78 21 116/87 100 Mechanical Ventilator 28 06/27/17 12:58 15.0 28 06/27/17 12:00 94 06/27/17 12:00 69 23 143/93 83 Non-Rebreather 15.0 Intake and Output 06/27/17 06/28/17 19:00 07:00 Intake Total 916 ml 5 ml Output Total 1625 ml 680 ml Balance -709 ml -675 ml IV Total 666 ml 5 ml Tube Feeding 250 ml Output Urine Total 1020 ml 680 ml Stool Total 605 ml 0 ml Height (Feet): 5 Height (Inches): 7.00 Weight (Pounds): 153 Lashawn Mason N.P. Jun 28, 2017 11:49
[2017-06-28 12:00] VITALS: BP 138/84
--- NOTE | 2017-06-28 12:26 | Pulmonology Progress Note ---
Assessment/Plan Assessment/Plan IMPRESSION: 1. Respiratory failure; now extubated 2. Cannabis usage. 3. Diabetic ketoacidosis. 4. Troponin leak. 5. Tachycardia. 6. AMS; suspect anoxic brain injury DISCUSSION: Continue present management and care. now extubated Poor prognosis Subjective Interval Events: patient seen on the medical floor; on non-rebreather mask. Constitutional: Reports: no symptoms HEENT: Repors: no symptoms Respiratory: Reports: no symptoms Cardiovascular: Reports: no symptoms Gastrointestinal/Abdominal: Reports: no symptoms Allergies: Coded Allergies: No Known Allergies (Unverified , 06/15/17) Objective Last 24 Hour Vital Signs Date Time Temp Pulse Resp B/P (MAP) Pulse Ox O2 Delivery O2 Flow Rate FiO2 06/28/17 12:00 16 06/28/17 11:00 16 06/28/17 10:00 16 06/28/17 09:00 16 06/28/17 08:00 98.0 60 20 139/85 100 06/28/17 08:00 16 06/28/17 07:00 16 06/28/17 06:00 16 06/28/17 05:00 16 06/28/17 04:00 15 06/28/17 04:00 97.4 61 20 123/75 100 06/28/17 03:00 17 06/28/17 02:00 15 06/28/17 01:00 15 06/28/17 00:00 97.6 61 18 157/91 98 06/28/17 00:00 16 06/27/17 22:42 15 06/27/17 21:00 59 12 132/85 100 Non-Rebreather 06/27/17 20:30 60 12 126/29 100 Non-Rebreather 06/27/17 20:13 56 06/27/17 20:00 97.5 58 12 128/81 100 Non-Rebreather 06/27/17 19:00 61 17 130/88 100 Non-Rebreather 06/27/17 18:00 59 14 130/80 100 Non-Rebreather 06/27/17 17:00 78 15 130/78 100 Non-Rebreather 06/27/17 16:53 Non-Rebreather 15.0 100 06/27/17 16:00 65 20 118/87 100 Non-Rebreather 06/27/17 16:00 60 06/27/17 15:00 99.2 68 22 109/73 100 Non-Rebreather 06/27/17 14:00 78 21 116/87 100 Mechanical Ventilator 28 06/27/17 12:58 15.0 28 Intake and Output 06/27/17 06/28/17 19:00 07:00 Intake Total 916 ml 5 ml Output Total 1625 ml 680 ml Balance -709 ml -675 ml IV Total 666 ml 5 ml Tube Feeding 250 ml Output Urine Total 1020 ml 680 ml Stool Total 605 ml 0 ml General Appearance: no acute distress HEENT: normocephalic Respiratory/Chest: chest wall non-tender, lungs clear Cardiovascular: normal peripheral pulses, normal rate Abdomen: normal bowel sounds Current Medications Medications (Trade) Dose Ordered Sig/Conrado Route PRN Reason Start Time Stop Time Status Last Admin Dose Admin Miscellaneous Medication (NIGHT PATROL INSPECTOR Rate Change) 1 ea PRN MISC rate change 06/27/17 21:15 06/29/17 10:59 Miscellaneous Medication (NIGHT PATROL INSPECTOR shift volume) 1 ea Q12HR@0700,1900 MISC 06/28/17 07:00 06/29/17 18:59 06/28/17 07:04 Morphine Sulfate 30 ml @ 1 mls/hr NIGHT PATROL INSPECTOR Protocol PRN IV COMFORT CARE USE ONLY 06/27/17 21:15 06/29/17 17:59 Morphine Sulfate (Morphine Sulfate) 2 mg Q2H PRN IV Agonal Breathing/Brkth Pain 06/27/17 21:30 06/29/17 21:29 Paulo Floyd MD Jun 28, 2017 12:26
--- NOTE | 2017-06-28 14:25 | Infectious Diseases Prog Note ---
Assessment/Plan Problems: (1) Pneumonia Assessment & Plan: suspect aspiration due to altered mental status , off zosyn and ceftaroline, now on comfort measures (2) Sepsis Assessment & Plan: due to the above, blood culture is negative , off antibiotics for comfort measures (3) Pancreatitis Assessment & Plan: suspect due to alcohol abuse, with no significant improvement (4) Cardiopulmonary arrest Assessment & Plan: extubated from mechanical ventilation , as per pulmonary team and family request (5) Anoxic cerebral edema Assessment & Plan: with no improvement, neurology is following , has poor prognosis , no tracheostomy, or PEG tube placement as per family , now on comfort measures Subjective ROS Limited/Unobtainable: Yes Allergies: Coded Allergies: No Known Allergies (Unverified , 06/15/17) Subjective he is now extubated, unresponsive, postural and spastic in the lower extremities , on morphine drip for comfort measures afebrile. Objective Vital Signs Last 24 Hour Vital Signs Date Time Temp Pulse Resp B/P (MAP) Pulse Ox O2 Delivery O2 Flow Rate FiO2 06/28/17 13:00 16 06/28/17 12:00 97.3 60 20 138/84 100 06/28/17 12:00 16 06/28/17 11:00 16 06/28/17 10:00 16 06/28/17 09:00 16 06/28/17 08:00 98.0 60 20 139/85 100 06/28/17 08:00 16 06/28/17 07:00 16 06/28/17 06:00 16 06/28/17 05:00 16 06/28/17 04:00 15 06/28/17 04:00 97.4 61 20 123/75 100 06/28/17 03:00 17 06/28/17 02:00 15 06/28/17 01:00 15 06/28/17 00:00 97.6 61 18 157/91 98 06/28/17 00:00 16 06/27/17 22:42 15 06/27/17 21:00 59 12 132/85 100 Non-Rebreather 06/27/17 20:30 60 12 126/29 100 Non-Rebreather 06/27/17 20:13 56 06/27/17 20:00 97.5 58 12 128/81 100 Non-Rebreather 06/27/17 19:00 61 17 130/88 100 Non-Rebreather 06/27/17 18:00 59 14 130/80 100 Non-Rebreather 06/27/17 17:00 78 15 130/78 100 Non-Rebreather 06/27/17 16:53 Non-Rebreather 15.0 100 06/27/17 16:00 65 20 118/87 100 Non-Rebreather 06/27/17 16:00 60 06/27/17 15:00 99.2 68 22 109/73 100 Non-Rebreather Height (Feet): 5 Height (Inches): 7.00 Weight (Pounds): 153 General Appearance: WD/WN, no acute distress HEENT: normocephalic, atraumatic, anicteric Respiratory/Chest: chest wall non-tender, decreased breath sounds, crackles/ rales Cardiovascular: regular rhythm, no JVD, bradycardia Abdomen: normal bowel sounds, soft, non tender, no organomegaly, non distended , no mass, no scars Extremities: no cyanosis, no clubbing Skin: no rash, no lesions, no ulcers Neurologic/Psychiatric: unresponsiveness Lymphatic: no neck adenopathy, no groin adenopathy Current Medications Medications (Trade) Dose Ordered Sig/Conrado Route PRN Reason Start Time Stop Time Status Last Admin Dose Admin Miscellaneous Medication (STITCHDOWN THREAD LASTER Rate Change) 1 ea PRN MISC rate change 06/27/17 21:15 06/29/17 10:59 Miscellaneous Medication (STITCHDOWN THREAD LASTER shift volume) 1 ea Q12HR@0700,1900 MISC 06/28/17 07:00 06/29/17 18:59 06/28/17 07:04 Morphine Sulfate 30 ml @ 1 mls/hr STITCHDOWN THREAD LASTER Protocol PRN IV COMFORT CARE USE ONLY 06/27/17 21:15 06/29/17 17:59 Morphine Sulfate (Morphine Sulfate) 2 mg Q2H PRN IV Agonal Breathing/Brkth Pain 06/27/17 21:30 06/29/17 21:29 Saad Cummings M.D. Jun 28, 2017 14:25
[2017-06-28 16:11] VITALS: BP 141/83
--- NOTE | 2017-06-28 17:26 | Cardiac Electrophysiology PN ---
Assessment/Plan Assessment/Plan 1. Troponin leak. Levels are flat and likely due to renal failure with creatinine of 3.5. Echocardiogram EF60% 2. Tachycardia due to diabetic ketoacidosis and sepsis. 3. Respiratory failure on Vent. S/P Terminal extubation yesterday 4. Pneumonia, Abx DCed 5. Pancreatitis. 6. ARF 7. Marijuana use. 8. Suspect diffuse cerebral anoxia and edema with decorticate rigidity per Dr Cano. 9. Alcohol withdrawal. 10. DNR, DNI, Comfort Care on morphine drip. Will sign off DW RN Subjective Subjective Was terminally extubated. Now Comfort care on morphine drip off telemetry.. Objective Last 24 Hour Vital Signs Date Time Temp Pulse Resp B/P (MAP) Pulse Ox O2 Delivery O2 Flow Rate FiO2 06/28/17 17:00 16 06/28/17 16:11 97.5 64 20 141/83 98 06/28/17 16:00 16 06/28/17 15:00 16 06/28/17 14:00 16 06/28/17 13:00 16 06/28/17 12:00 97.3 60 20 138/84 100 06/28/17 12:00 16 06/28/17 11:00 16 06/28/17 10:00 16 06/28/17 09:00 16 06/28/17 08:00 98.0 60 20 139/85 100 06/28/17 08:00 16 06/28/17 07:00 16 06/28/17 06:00 16 06/28/17 05:00 16 06/28/17 04:00 15 06/28/17 04:00 97.4 61 20 123/75 100 06/28/17 03:00 17 06/28/17 02:00 15 06/28/17 01:00 15 06/28/17 00:00 97.6 61 18 157/91 98 06/28/17 00:00 16 06/27/17 22:42 15 06/27/17 21:00 59 12 132/85 100 Non-Rebreather 06/27/17 20:30 60 12 126/29 100 Non-Rebreather 06/27/17 20:13 56 06/27/17 20:00 97.5 58 12 128/81 100 Non-Rebreather 06/27/17 19:00 61 17 130/88 100 Non-Rebreather 06/27/17 18:00 59 14 130/80 100 Non-Rebreather Intake and Output 06/27/17 06/28/17 19:00 07:00 Intake Total 916 ml 5 ml Output Total 1625 ml 680 ml Balance -709 ml -675 ml IV Total 666 ml 5 ml Tube Feeding 250 ml Output Urine Total 1020 ml 680 ml Stool Total 605 ml 0 ml Objective HEAD AND NECK: No JVD. Face Mask on LUNGS: Clear. CARDIOVASCULAR: Regular S1 and S2 with no gallop or murmur. ABDOMEN: Soft and nontender. EXTREMITIES: No pitting edema. ALBERT ROWAN Jun 28, 2017 17:26
[2017-06-28 20:00] VITALS: BP 126/71
[2017-06-29] VITALS: BP 143/76
[2017-06-29 04:00] VITALS: BP 147/86
[2017-06-29] MEDS: PCA shift volume MISC SCH (07:05)
[2017-06-29 08:15] VITALS: BP 145/87
--- NOTE | 2017-06-29 11:06 | GI Progress Note ---
Assessment/Plan Problems: (1) Shock liver ICD Codes: K72.00 - Acute and subacute hepatic failure without coma SNOMED: 518780441 (2) Anoxic cerebral edema ICD Codes: G93.6 - Cerebral edema; R09.02 - Hypoxemia SNOMED: 0751997, 763414087 (3) Transaminitis ICD Codes: R74.0 - Nonspecific elevation of levels of transaminase and lactic acid dehydrogenase [LDH] SNOMED: 212731016, 780099858 (4) Alcohol withdrawal ICD Codes: F10.239 - Alcohol dependence with withdrawal, unspecified SNOMED: 065635922 (5) Pancreatitis ICD Codes: K85.90 - Acute pancreatitis without necrosis or infection, unspecified SNOMED: 24457117 Assessment/Plan comfort care, family at bedside Subjective Subjective limited Objective Last 24 Hour Vital Signs Date Time Temp Pulse Resp B/P (MAP) Pulse Ox O2 Delivery O2 Flow Rate FiO2 06/29/17 10:00 18 06/29/17 09:00 18 06/29/17 08:15 97.9 98 18 145/87 98 06/29/17 08:00 18 06/29/17 07:00 18 06/29/17 06:00 18 06/29/17 05:00 16 06/29/17 04:00 16 06/29/17 04:00 98.4 97 20 147/86 99 06/29/17 04:00 Non-Rebreather 15.0 06/29/17 03:00 16 06/29/17 02:00 16 06/29/17 01:00 16 06/29/17 00:00 98.1 77 23 143/76 100 06/29/17 00:00 16 06/29/17 00:00 Non-Rebreather 15.0 06/28/17 23:00 16 06/28/17 22:00 16 06/28/17 21:00 16 06/28/17 20:00 16 06/28/17 20:00 Non-Rebreather 15.0 06/28/17 20:00 97.8 63 20 126/71 100 06/28/17 19:00 16 06/28/17 18:00 16 06/28/17 17:00 16 06/28/17 16:11 97.5 64 20 141/83 98 06/28/17 16:00 16 06/28/17 15:00 16 06/28/17 14:00 16 06/28/17 13:00 16 06/28/17 12:00 97.3 60 20 138/84 100 06/28/17 12:00 16 Intake and Output 06/28/17 06/29/17 19:00 07:00 Intake Total 1 ml 12 ml Output Total 900 ml 600 ml Balance -899 ml -588 ml Intake Oral 0 ml IV Total 1 ml 12 ml Output Urine Total 900 ml 600 ml Stool Total 0 ml Height (Feet): 5 Height (Inches): 7.00 Weight (Pounds): 146 Lashawn Mason N.P. Jun 29, 2017 11:06
[2017-06-29] MEDS ORDERED: Morphine Sulfate 2mg/ml Inj IV PRN (11:30)
[2017-06-29 11:56] VITALS: BP 149/88
--- NOTE | 2017-06-29 11:58 | Wound Nurse Progress Note ---
Wound RN Progress Note Wound Consult #1 Left upper back DTI pressure ulcer. Revealed as stage II pressure ulcer. will change wound care treatment #2 Mid and right upper back scattered DTI pressure ulcer. Revealed as stage II pressure ulcer. will change wound care treatment #3 Left sacral area DTI pressure ulcer. Reveling as unstagable pressure ulcer. Will change wound care treatment. #4 Left tip of the big toe DTI pressure ulcer. Skin still intact #5 Right tip of the big toe DTI pressure ulcer. Skin still intact #6 Left heel DTI pressure ulcer. Skin still intact #7 Right heel DTI pressure ulcer. Skin still intact #8 Left ear DTI pressure ulcer. Skin still intact Reassessed this Pt today. Left sacral DTI Revealed as unstageable pressure ulcer. Will change wound care treatment. Recommendation -Local wound care per protocol -Keep clean and dry -Optimize nutrition -Turn and reposition -Offload both heels -Arterial/venous duplex study -Heel protector on both heels -Low air loss P200 mattress -Assess and f/u accordingly for any changes SHIRA VALENTINE RN Jun 29, 2017 11:58
--- NOTE | 2017-06-29 15:39 | Infectious Diseases Prog Note ---
Assessment/Plan Problems: (1) Pneumonia Assessment & Plan: suspect aspiration due to altered mental status , off zosyn and ceftaroline, now on comfort measures (2) Sepsis Assessment & Plan: due to the above, blood culture is negative , off antibiotics for comfort measures (3) Pancreatitis Assessment & Plan: suspect due to alcohol abuse, with no significant improvement (4) Cardiopulmonary arrest Assessment & Plan: extubated from mechanical ventilation , as per pulmonary team and family request (5) Anoxic cerebral edema Assessment & Plan: with no improvement, neurology is following , has poor prognosis , no tracheostomy, or PEG tube placement as per family , now on comfort measures Subjective ROS Limited/Unobtainable: Yes Allergies: Coded Allergies: No Known Allergies (Unverified , 06/15/17) Subjective he is now extubated, unresponsive, postural and spastic in the lower extremities , on morphine drip for comfort measures afebrile. Objective Vital Signs Last 24 Hour Vital Signs Date Time Temp Pulse Resp B/P (MAP) Pulse Ox O2 Delivery O2 Flow Rate FiO2 06/29/17 15:00 18 06/29/17 14:00 18 06/29/17 13:00 18 06/29/17 12:00 18 06/29/17 11:56 98.6 97 18 149/88 99 Nasal Cannula 06/29/17 11:00 18 06/29/17 10:00 18 06/29/17 09:00 18 06/29/17 08:15 97.9 98 18 145/87 98 06/29/17 08:00 18 06/29/17 07:00 18 06/29/17 06:00 18 06/29/17 05:00 16 06/29/17 04:00 16 06/29/17 04:00 98.4 97 20 147/86 99 06/29/17 04:00 Non-Rebreather 15.0 06/29/17 03:00 16 06/29/17 02:00 16 06/29/17 01:00 16 06/29/17 00:00 98.1 77 23 143/76 100 06/29/17 00:00 16 06/29/17 00:00 Non-Rebreather 15.0 06/28/17 23:00 16 06/28/17 22:00 16 06/28/17 21:00 16 06/28/17 20:00 16 06/28/17 20:00 Non-Rebreather 15.0 06/28/17 20:00 97.8 63 20 126/71 100 06/28/17 19:00 16 06/28/17 18:00 16 06/28/17 17:00 16 06/28/17 16:11 97.5 64 20 141/83 98 06/28/17 16:00 16 Height (Feet): 5 Height (Inches): 7.00 Weight (Pounds): 146 General Appearance: WD/WN, cachetic HEENT: normocephalic, atraumatic, anicteric, mucous membranes moist, PERRL Respiratory/Chest: no accessory muscle use, decreased breath sounds, crackles/ rales Cardiovascular: normal peripheral pulses, normal rate, regular rhythm, no gallop/murmur, no JVD Abdomen: normal bowel sounds, soft, non tender, no organomegaly, non distended , no mass, no scars Extremities: no cyanosis, no clubbing Skin: no rash, no lesions, no ulcers Neurologic/Psychiatric: unresponsiveness, depressed affect Current Medications Medications (Trade) Dose Ordered Sig/Conrado Route PRN Reason Start Time Stop Time Status Last Admin Dose Admin Miscellaneous Medication (AERONAUTICAL DESIGN ENGINEER Rate Change) 1 ea PRN MISC rate change 06/27/17 21:15 06/30/17 21:14 Miscellaneous Medication (AERONAUTICAL DESIGN ENGINEER shift volume) 1 ea Q12HR@0700,1900 MISC 06/29/17 19:00 06/30/17 18:59 Morphine Sulfate 30 ml @ 1 mls/hr AERONAUTICAL DESIGN ENGINEER Protocol PRN IV COMFORT CARE USE ONLY 06/27/17 21:15 06/30/17 21:14 06/29/17 15:18 Morphine Sulfate (Morphine Sulfate) 2 mg Q2H PRN IV Agonal Breathing/Brkth Pain 06/29/17 11:30 07/01/17 11:29 Saad Cummings M.D. Jun 29, 2017 15:39
[2017-06-29 16:00] VITALS: BP 99/96
[2017-06-29] MEDS ORDERED: PCA shift volume MISC SCH (19:00)
[2017-06-29 20:00] VITALS: BP 150/90
--- NOTE | 2017-06-29 20:06 | Nephrology Progress Note ---
Assessment/Plan Problem List: (1) Hypernatremia Assessment: corrected (2) Hypokalemia Assessment: corrected (3) Fever (4) Acidosis (5) Respiratory distress (6) Pancreatitis (7) Elevated troponin (8) Alcohol withdrawal (9) Pneumonia (10) Sepsis (11) Cardiopulmonary arrest (12) Metabolic acidosis (13) DKA (diabetic ketoacidosis) Plan On comfort measures Continue morphine drip Stable vitals DNR/DNI status F/U with consults recs Subjective ROS Limited/Unobtainable: Yes Subjective Seen in med/surg unit, on non rebreather mask,unresponsive, postural and spastic in the lower extremities , on morphine drip for comfort measures, afebrile Objective Objective Last 24 Hour Vital Signs Date Time Temp Pulse Resp B/P (MAP) Pulse Ox O2 Delivery O2 Flow Rate FiO2 06/29/17 19:00 18 06/29/17 18:00 18 06/29/17 17:00 18 06/29/17 16:00 97.9 79 20 99/96 06/29/17 16:00 18 06/29/17 15:00 18 06/29/17 14:00 18 06/29/17 13:00 18 06/29/17 12:00 18 06/29/17 11:56 98.6 97 18 149/88 99 Nasal Cannula 06/29/17 11:00 18 06/29/17 10:00 18 06/29/17 09:00 18 06/29/17 08:15 97.9 98 18 145/87 98 06/29/17 08:00 18 06/29/17 07:00 18 06/29/17 06:00 18 06/29/17 05:00 16 06/29/17 04:00 16 06/29/17 04:00 98.4 97 20 147/86 99 06/29/17 04:00 Non-Rebreather 15.0 06/29/17 03:00 16 06/29/17 02:00 16 06/29/17 01:00 16 06/29/17 00:00 98.1 77 23 143/76 100 06/29/17 00:00 16 06/29/17 00:00 Non-Rebreather 15.0 06/28/17 23:00 16 06/28/17 22:00 16 06/28/17 21:00 16 Intake and Output 1/18/18 1/19/18 19:00 07:00 Intake Total 1 ml 12 ml Output Total 900 ml 600 ml Balance -899 ml -588 ml Intake Oral 0 ml IV Total 1 ml 12 ml Output Urine Total 900 ml 600 ml Stool Total 0 ml Height (Feet): 5 Height (Inches): 7.00 Weight (Pounds): 146 General Appearance: no apparent distress EENT: normal ENT inspection Neck: normal alignment Cardiovascular: regular rhythm Respiratory/Chest: no respiratory distress, decreased breath sounds Abdomen: soft Genitourinary/Rectal: other - carpenter Extremities: no calf tenderness, other - spastic Neurologic: unresponsive Hannah Johnson N.P. Jun 29, 2017 20:06
[2017-06-29] MEDS ORDERED: NS 500ML ONE (20:59)
[2017-06-29] MEDS: NovoLOG Insulin Flexpen SUBQ SCH (23:37)
[2017-06-30] VITALS: BP 165/105
[2017-06-30] MEDS ORDERED: NovoLOG Insulin Flexpen SUBQ SCH
[2017-06-30 00:43] LABS: APPEARANCE,URINE CLEAR; BILIRUBIN, URINE NEGATIVE (NEGATIVE); COLOR,URINE PALE YELLOW; GLUCOSE, URINE (UA) 4+ (NEGATIVE); KETONES,URINE NEGATIVE (NEGATIVE); LEUKOCYTE ESTERASE ,URINE NEGATIVE (NEGATIVE); NITRITE,URINE NEGATIVE (NEGATIVE); PH,URINE 5 (4.5-8.0); PROTEIN,URINE 1+ (NEGATIVE); UROBILINOGEN,URINE NORMAL MG/DL (0.0-1.0)
[2017-06-30 04:00] VITALS: BP 164/107
[2017-06-30] MEDS: NovoLOG Insulin Flexpen SUBQ SCH ×4 (05:31→16:46)
--- NOTE | 2017-06-30 07:03 | General Progress Note ---
Assessment/Plan Problem List: (1) DKA (diabetic ketoacidosis) ICD Codes: E13.10 - Other specified diabetes mellitus with ketoacidosis without coma SNOMED: 78528868, 695113036 Qualifiers: Qualified Codes: E10.11 - Type 1 diabetes mellitus with ketoacidosis with coma (2) Transaminitis ICD Codes: R74.0 - Nonspecific elevation of levels of transaminase and lactic acid dehydrogenase [LDH] SNOMED: 576864270, 785010581 (3) Elevated troponin ICD Codes: R74.8 - Abnormal levels of other serum enzymes SNOMED: 030361897, 874392055, [id number] Assessment/Plan place NGT start NGTF Subjective ROS Limited/Unobtainable: No Allergies: Coded Allergies: No Known Allergies (Unverified , 06/15/17) Subjective family wants full code Objective Last 24 Hour Vital Signs Date Time Temp Pulse Resp B/P (MAP) Pulse Ox O2 Delivery O2 Flow Rate FiO2 06/30/17 04:00 98.8 127 22 164/107 100 06/30/17 00:00 99.0 115 23 165/105 98 06/29/17 22:30 20 06/29/17 22:00 20 06/29/17 21:00 20 06/29/17 20:00 20 06/29/17 20:00 98.5 95 22 150/90 99 06/29/17 19:00 18 06/29/17 18:00 18 06/29/17 17:00 18 06/29/17 16:00 97.9 79 20 99/96 06/29/17 16:00 18 06/29/17 15:00 18 06/29/17 14:00 18 06/29/17 13:00 18 06/29/17 12:00 18 06/29/17 11:56 98.6 97 18 149/88 99 Nasal Cannula 06/29/17 11:00 18 06/29/17 10:00 18 06/29/17 09:00 18 06/29/17 08:15 97.9 98 18 145/87 98 06/29/17 08:00 18 Intake and Output 06/29/17 06/30/17 19:00 07:00 Output Total 1000 ml 1200 ml Balance -1000 ml -1200 ml Output Urine Total 1000 ml 1200 ml Laboratory Tests 06/29/17 23:40: Urine Color Pale yellow, Urine Appearance Clear, Urine pH 5, Urine Specific [place] 1.020, Urine Protein 1+H, Urine Glucose (UA) 4+H, Urine Ketones Negative , Urine Occult Blood Negative, Urine Nitrite Negative, Urine Bilirubin Negative , Urine Urobilinogen Normal, Urine Leukocyte Esterase Negative, Urine RBC 0-2H, Urine WBC 0-2, Urine Squamous Epithelial Cells Occasional, Urine Bacteria None, Urine Hyaline Casts 0-2H Height (Feet): 5 Height (Inches): 7.00 Weight (Pounds): 141 General Appearance: no apparent distress EENT: normal ENT inspection Neck: supple Cardiovascular: normal rate Respiratory/Chest: decreased breath sounds Abdomen: normal bowel sounds, non tender, soft Extremities: non-tender SAM PEREIRA Jun 30, 2017 07:03
[2017-06-30 07:51] LABS: BASOPHILS % (AUTO) 1.2 % (0.0-2.0); EOSINOPHILS % (AUTO) 0.3 % (0.0-3.0); HEMATOCRIT 31.7 % (42.0-52.0); HEMOGLOBIN 10.2 G/DL (14.2-18.0); LYMPHOCYTES % (AUTO) 6.4 % (20.0-45.0); MEAN CORPUSCULAR VOLUME 100 FL (80-99); MONOCYTES % (AUTO) 10.5 % (1.0-10.0); NEUTROPHILS % (AUTO) 81.8 % (45.0-75.0); PLATELET COUNT 437 K/UL (150-450); RED BLOOD COUNT 3.17 M/UL (4.70-6.10); RED CELL DISTRIBUTION WIDTH 11.4 % (11.6-14.8); WHITE BLOOD COUNT 13.4 K/UL (4.8-10.8)
[2017-06-30 08:26] LABS: ANION GAP 12 mmol/L (5-15); BLOOD UREA NITROGEN 35 mg/dL (7-18); CALCIUM 9.9 MG/DL (8.5-10.1); CARBON DIOXIDE 28 MMOL/L (21-32); CHLORIDE 109 MMOL/L (98-107); CREATININE 2.1 MG/DL (0.55-1.30); POTASSIUM 4.3 MMOL/L (3.5-5.1); SODIUM 149 MMOL/L (136-145)
[2017-06-30 09:00] VITALS: BP 197/115
[2017-06-30 11:52] LABS: BASOPHILS % (AUTO) 1.1 % (0.0-2.0); EOSINOPHILS % (AUTO) 0.1 % (0.0-3.0); HEMATOCRIT 32.8 % (42.0-52.0); HEMOGLOBIN 10.5 G/DL (14.2-18.0); LYMPHOCYTES % (AUTO) 6.6 % (20.0-45.0); MEAN CORPUSCULAR VOLUME 99 FL (80-99); NEUTROPHILS % (AUTO) 81.3 % (45.0-75.0); PLATELET COUNT 463 K/UL (150-450); RED BLOOD COUNT 3.33 M/UL (4.70-6.10); RED CELL DISTRIBUTION WIDTH 11.5 % (11.6-14.8); WHITE BLOOD COUNT 13.7 K/UL (4.8-10.8)
[2017-06-30 12:00] VITALS: BP 168/100
--- NOTE | 2017-06-30 12:05 | Diagnostic Imaging Report ---
Indication: NG tube placement Technique: XRAY Chest 1v Comparison:06/25/2017 Findings: The heart is normal in size. There is opacification of the left lung base appearing left hemidiaphragm. Blunting of left costophrenic angle is also noted. Right lung is unchanged. Endotracheal tube has been removed. A nasogastric tube is in place in the stomach. Impression: NG tube in the stomach. Left lower lobe air space disease or volume loss. Possible left pleural effusion. No other change.
[2017-06-30 12:34] LABS: ALANINE AMINOTRANSFERASE 57 U/L (12-78); ALBUMIN/GLOBULIN RATIO 0.4 (1.0-2.7); ALKALINE PHOSPHATASE 92 U/L (46-116); AMYLASE 77 U/L (25-115); ANION GAP 10 mmol/L (5-15); ASPARTATE AMINO TRANSFERASE 34 U/L (15-37); BILIRUBIN,TOTAL 0.3 MG/DL (0.2-1.0); BLOOD UREA NITROGEN 36 mg/dL (7-18); CALCIUM 10.1 MG/DL (8.5-10.1); CARBON DIOXIDE 29 MMOL/L (21-32); CHLORIDE 111 MMOL/L (98-107); CREATININE 2.2 MG/DL (0.55-1.30); POTASSIUM 4.1 MMOL/L (3.5-5.1); SODIUM 150 MMOL/L (136-145)
--- NOTE | 2017-06-30 14:39 | Cardiac Electrophysiology PN ---
Assessment/Plan Assessment/Plan 1. Troponin leak. Levels are flat and likely due to renal failure with creatinine of 3.5. Echocardiogram EF60% 2. Tachycardia due to diabetic ketoacidosis and sepsis. 3. Respiratory failure on Vent. S/P Terminal extubation. But family made him full code again. ABG pending. May need reintubation. 4. Pneumonia, Abx resumption per Dr Cummings 5. Pancreatitis. 6. ARF 7. Marijuana use. 8. Suspect diffuse cerebral anoxia and edema with decorticate rigidity per Dr Cano. 9. Alcohol withdrawal. 10. Now full code. 11. Azotemia and hypernatremia. On 06/12 MARCELLA HUFF RN Subjective Subjective Comfort care was was cancelled by parents thuis am and Morphine drip DCed and patient back to [facility]. Still unresponsive.NG feeding started today with 06/12 ns 75 cc/hr Objective Last 24 Hour Vital Signs Date Time Temp Pulse Resp B/P (MAP) Pulse Ox O2 Delivery O2 Flow Rate FiO2 06/30/17 12:41 102 06/30/17 12:00 98.5 117 33 168/100 93 Non-Rebreather 15.0 06/30/17 09:00 98.7 143 40 197/115 93 Non-Rebreather 15.0 06/30/17 04:00 98.8 127 22 164/107 100 06/30/17 00:00 99.0 115 23 165/105 98 06/29/17 22:30 20 06/29/17 22:00 20 06/29/17 21:00 20 06/29/17 20:00 20 06/29/17 20:00 98.5 95 22 150/90 99 06/29/17 19:00 18 06/29/17 18:00 18 06/29/17 17:00 18 06/29/17 16:00 97.9 79 20 99/96 06/29/17 16:00 18 06/29/17 15:00 18 Intake and Output 06/29/17 06/30/17 19:00 07:00 Intake Total 600 ml Output Total 1000 ml 1200 ml Balance -1000 ml -600 ml IV Total 600 ml Output Urine Total 1000 ml 1200 ml Laboratory Tests Test 06/29/17 23:40 06/30/17 05:34 06/30/17 08:30 06/30/17 10:40 Urine Color Pale yellow Urine Appearance Clear Urine pH 5 (4.5-8.0) Urine Specific [place] 1.020 (1.005-1.035) Urine Protein 1+ (NEGATIVE) H Urine Glucose (UA) 4+ (NEGATIVE) H Urine Ketones Negative (NEGATIVE) Urine Occult Blood Negative (NEGATIVE) Urine Nitrite Negative (NEGATIVE) Urine Bilirubin Negative (NEGATIVE) Urine Urobilinogen Normal MG/DL (0.0-1.0) Urine Leukocyte Esterase Negative (NEGATIVE) Urine RBC 0-2 /HPF (0 - 0) H Urine WBC 0-2 /HPF (0 - 0) Urine Squamous Epithelial Cells Occasional /LPF Urine Bacteria None /HPF (NONE) Urine Hyaline Casts 0-2 /LPF (NONE) H White Blood Count 13.4 K/UL (4.8-10.8) H 13.7 K/UL (4.8-10.8) H Red Blood Count 3.17 M/UL (4.70-6.10) L 3.33 M/UL (4.70-6.10) L Hemoglobin 10.2 G/DL (14.2-18.0) L 10.5 G/DL (14.2-18.0) L Hematocrit 31.7 % (42.0-52.0) L 32.8 % (42.0-52.0) L Mean Corpuscular Volume 100 FL (80-99) H 99 FL (80-99) Mean Corpuscular Hemoglobin 32.3 PG (27.0-31.0) H 31.7 PG (27.0-31.0) H Mean Corpuscular Hemoglobin Concent 32.3 G/DL (32.0-36.0) 32.1 G/DL (32.0-36.0) Red Cell Distribution Width 11.4 % (11.6-14.8) L 11.5 % (11.6-14.8) L Platelet Count 437 K/UL (150-450) 463 K/UL (150-450) H Mean Platelet Volume 6.0 FL (6.5-10.1) L 6.1 FL (6.5-10.1) L Neutrophils (%) (Auto) 81.8 % (45.0-75.0) H 81.3 % (45.0-75.0) H Lymphocytes (%) (Auto) 6.4 % (20.0-45.0) L 6.6 % (20.0-45.0) L Monocytes (%) (Auto) 10.5 % (1.0-10.0) H 11.0 % (1.0-10.0) H Eosinophils (%) (Auto) 0.3 % (0.0-3.0) 0.1 % (0.0-3.0) Basophils (%) (Auto) 1.2 % (0.0-2.0) 1.1 % (0.0-2.0) Sodium Level 149 MMOL/L (136-145) H 150 MMOL/L (136-145) H Potassium Level 4.3 MMOL/L (3.5-5.1) 4.1 MMOL/L (3.5-5.1) Chloride Level 109 MMOL/L (98-107) H 111 MMOL/L (98-107) H Carbon Dioxide Level 28 MMOL/L (21-32) 29 MMOL/L (21-32) Anion Gap 12 mmol/L (5-15) 10 mmol/L (5-15) Blood Urea Nitrogen 35 mg/dL (7-18) H 36 mg/dL (7-18) H Creatinine 2.1 MG/DL (0.55-1.30) H 2.2 MG/DL (0.55-1.30) H Estimat Glomerular Filtration Rate 45.2 mL/min (>60) 42.8 mL/min (>60) Glucose Level 309 MG/DL (74-106) H 287 MG/DL (74-106) H Calcium Level 9.9 MG/DL (8.5-10.1) 10.1 MG/DL (8.5-10.1) Arterial Blood pH 7.492 (7.350-7.450) Arterial Blood Partial Pressure CO2 34.6 mmHg (35.0-45.0) L Arterial Blood Partial Pressure O2 54.3 mmHg (75.0-100.0) L Arterial Blood HCO3 25.9 mmol/L (22.0-26.0) Arterial Blood Oxygen Saturation 89.0 % (92.0-98.0) L Arterial Blood Base Excess 2.8 Juanito Test Positive Total Bilirubin 0.3 MG/DL (0.2-1.0) Aspartate Amino Transf (AST/SGOT) 34 U/L (15-37) Alanine Aminotransferase (ALT/SGPT) 57 U/L (12-78) Alkaline Phosphatase 92 U/L (46-116) Total Protein 7.3 G/DL (6.4-8.2) Albumin 2.0 G/DL (3.4-5.0) L Globulin 5.3 g/dL Albumin/Globulin Ratio 0.4 (1.0-2.7) L Amylase Level 77 U/L (25-115) Lipase 291 U/L (73-393) Objective HEAD AND NECK: No JVD. Face Mask on. NG tube in. LUNGS: Clear. CARDIOVASCULAR: Regular S1 and S2 with no gallop or murmur. ABDOMEN: Soft and nontender. EXTREMITIES: No pitting edema. ALBERT ROWAN Jun 30, 2017 14:39
--- NOTE | 2017-06-30 14:53 | Infectious Diseases Prog Note ---
Assessment/Plan Problems: (1) Pneumonia Assessment & Plan: with possible aspiration due to altered mental status , will send sputum culture and restart zosyn and ceftaroline, monitor CXR (2) Sepsis Assessment & Plan: due to the above, will repeat blood culture , restart antibiotics (3) Pancreatitis Assessment & Plan: with no significant improvement , monitor lipase, GI is following (4) Cardiopulmonary arrest Assessment & Plan: was extubated from mechanical ventilation , as per family request and made DNR and started on morphin drip, but family changed his code status today to full code , he is back in ICU, cardiology is following (5) Anoxic cerebral edema Assessment & Plan: with no improvement, neurology is following , has poor prognosis , no tracheostomy, or PEG tube placement as per family , now full code as per family request Subjective ROS Limited/Unobtainable: Yes Allergies: Coded Allergies: No Known Allergies (Unverified , 06/15/17) Subjective he is now extubated, back to ICU, made full code again by family , still unresponsive, tachypneic, and tachycardic , postural and spastic in the lower extremities , off morphine drip , afebrile. Objective Vital Signs Last 24 Hour Vital Signs Date Time Temp Pulse Resp B/P (MAP) Pulse Ox O2 Delivery O2 Flow Rate FiO2 06/30/17 12:41 102 06/30/17 12:00 98.5 117 33 168/100 93 Non-Rebreather 15.0 06/30/17 09:00 98.7 143 40 197/115 93 Non-Rebreather 15.0 06/30/17 04:00 98.8 127 22 164/107 100 06/30/17 00:00 99.0 115 23 165/105 98 06/29/17 22:30 20 06/29/17 22:00 20 06/29/17 21:00 20 06/29/17 20:00 20 06/29/17 20:00 98.5 95 22 150/90 99 06/29/17 19:00 18 06/29/17 18:00 18 06/29/17 17:00 18 06/29/17 16:00 97.9 79 20 99/96 06/29/17 16:00 18 06/29/17 15:00 18 Height (Feet): 5 Height (Inches): 7.00 Weight (Pounds): 141 General Appearance: WD/WN, cachetic HEENT: normocephalic, atraumatic, anicteric, mucous membranes moist, PERRL, EOMI, pharynx normal, supple, no JVD Respiratory/Chest: respiratory distress, decreased breath sounds, accessory muscle use, crackles/rales, expiratory wheezing, inspiratory wheezing Cardiovascular: regular rhythm, no gallop/murmur, no JVD, tachycardia Abdomen: no organomegaly, non distended, no mass, no scars, absent bowel sounds Extremities: no cyanosis, no clubbing, no edema Skin: no rash, no lesions, no ulcers Neurologic/Psychiatric: unresponsiveness, aphasia Laboratory Tests Test 06/29/17 23:40 06/30/17 05:34 06/30/17 08:30 06/30/17 10:40 Urine Color Pale yellow Urine Appearance Clear Urine pH 5 (4.5-8.0) Urine Specific [place] 1.020 (1.005-1.035) Urine Protein 1+ (NEGATIVE) H Urine Glucose (UA) 4+ (NEGATIVE) H Urine Ketones Negative (NEGATIVE) Urine Occult Blood Negative (NEGATIVE) Urine Nitrite Negative (NEGATIVE) Urine Bilirubin Negative (NEGATIVE) Urine Urobilinogen Normal MG/DL (0.0-1.0) Urine Leukocyte Esterase Negative (NEGATIVE) Urine RBC 0-2 /HPF (0 - 0) H Urine WBC 0-2 /HPF (0 - 0) Urine Squamous Epithelial Cells Occasional /LPF Urine Bacteria None /HPF (NONE) Urine Hyaline Casts 0-2 /LPF (NONE) H White Blood Count 13.4 K/UL (4.8-10.8) H 13.7 K/UL (4.8-10.8) H Red Blood Count 3.17 M/UL (4.70-6.10) L 3.33 M/UL (4.70-6.10) L Hemoglobin 10.2 G/DL (14.2-18.0) L 10.5 G/DL (14.2-18.0) L Hematocrit 31.7 % (42.0-52.0) L 32.8 % (42.0-52.0) L Mean Corpuscular Volume 100 FL (80-99) H 99 FL (80-99) Mean Corpuscular Hemoglobin 32.3 PG (27.0-31.0) H 31.7 PG (27.0-31.0) H Mean Corpuscular Hemoglobin Concent 32.3 G/DL (32.0-36.0) 32.1 G/DL (32.0-36.0) Red Cell Distribution Width 11.4 % (11.6-14.8) L 11.5 % (11.6-14.8) L Platelet Count 437 K/UL (150-450) 463 K/UL (150-450) H Mean Platelet Volume 6.0 FL (6.5-10.1) L 6.1 FL (6.5-10.1) L Neutrophils (%) (Auto) 81.8 % (45.0-75.0) H 81.3 % (45.0-75.0) H Lymphocytes (%) (Auto) 6.4 % (20.0-45.0) L 6.6 % (20.0-45.0) L Monocytes (%) (Auto) 10.5 % (1.0-10.0) H 11.0 % (1.0-10.0) H Eosinophils (%) (Auto) 0.3 % (0.0-3.0) 0.1 % (0.0-3.0) Basophils (%) (Auto) 1.2 % (0.0-2.0) 1.1 % (0.0-2.0) Sodium Level 149 MMOL/L (136-145) H 150 MMOL/L (136-145) H Potassium Level 4.3 MMOL/L (3.5-5.1) 4.1 MMOL/L (3.5-5.1) Chloride Level 109 MMOL/L (98-107) H 111 MMOL/L (98-107) H Carbon Dioxide Level 28 MMOL/L (21-32) 29 MMOL/L (21-32) Anion Gap 12 mmol/L (5-15) 10 mmol/L (5-15) Blood Urea Nitrogen 35 mg/dL (7-18) H 36 mg/dL (7-18) H Creatinine 2.1 MG/DL (0.55-1.30) H 2.2 MG/DL (0.55-1.30) H Estimat Glomerular Filtration Rate 45.2 mL/min (>60) 42.8 mL/min (>60) Glucose Level 309 MG/DL (74-106) H 287 MG/DL (74-106) H Calcium Level 9.9 MG/DL (8.5-10.1) 10.1 MG/DL (8.5-10.1) Arterial Blood pH 7.492 (7.350-7.450) Arterial Blood Partial Pressure CO2 34.6 mmHg (35.0-45.0) L Arterial Blood Partial Pressure O2 54.3 mmHg (75.0-100.0) L Arterial Blood HCO3 25.9 mmol/L (22.0-26.0) Arterial Blood Oxygen Saturation 89.0 % (92.0-98.0) L Arterial Blood Base Excess 2.8 Juanito Test Positive Total Bilirubin 0.3 MG/DL (0.2-1.0) Aspartate Amino Transf (AST/SGOT) 34 U/L (15-37) Alanine Aminotransferase (ALT/SGPT) 57 U/L (12-78) Alkaline Phosphatase 92 U/L (46-116) Total Protein 7.3 G/DL (6.4-8.2) Albumin 2.0 G/DL (3.4-5.0) L Globulin 5.3 g/dL Albumin/Globulin Ratio 0.4 (1.0-2.7) L Amylase Level 77 U/L (25-115) Lipase 291 U/L (73-393) Current Medications Medications (Trade) Dose Ordered Sig/Conrado Route PRN Reason Start Time Stop Time Status Last Admin Dose Admin Dextrose (Dextrose 50%) STAT PRN IV Hypoglycemia 06/29/17 22:30 07/29/17 22:29 Insulin Aspart (NovoLOG) Q6HR SUBQ 06/30/17 12:00 07/30/17 11:59 06/30/17 12:25 Sodium Chloride 1,000 ml @ 75 mls/hr [id number] IV 06/29/17 22:30 07/29/17 22:29 06/30/17 12:22 Saad Cummings M.D. Jun 30, 2017 14:53
--- NOTE | 2017-06-30 15:14 | Nephrology Progress Note ---
Assessment/Plan Problem List: (1) DKA (diabetic ketoacidosis) (2) Elevated troponin (3) Pancreatitis (4) Hyponatremia Assessment: corrected (5) Acidosis (6) Respiratory distress Assessment: now intubated (7) Fever (8) Pneumonia Assessment: aspiration? (9) Sepsis (10) Alcohol withdrawal (11) Metabolic acidosis (12) Cardiopulmonary arrest Plan Comfort measures dc'd. Restart IVF. Restart NGT feeding. Abx resumed per ID. Repeat Ct head. Repeat EEG. Check ABG. Patient's mother wishes patient to be intubated if necessary. d/w Dr. Matson. Subjective Subjective mother wishes to lift the DNR status and change to full code. Patient is now FULL CODE. Back in [facility] overflow. On NRB mask. Obtunded. Objective Objective Last 24 Hour Vital Signs Date Time Temp Pulse Resp B/P (MAP) Pulse Ox O2 Delivery O2 Flow Rate FiO2 06/30/17 12:41 102 06/30/17 12:00 98.5 117 33 168/100 93 Non-Rebreather 15.0 06/30/17 09:00 98.7 143 40 197/115 93 Non-Rebreather 15.0 06/30/17 04:00 98.8 127 22 164/107 100 06/30/17 00:00 99.0 115 23 165/105 98 06/29/17 22:30 20 06/29/17 22:00 20 06/29/17 21:00 20 06/29/17 20:00 20 06/29/17 20:00 98.5 95 22 150/90 99 06/29/17 19:00 18 06/29/17 18:00 18 06/29/17 17:00 18 06/29/17 16:00 97.9 79 20 99/96 06/29/17 16:00 18 Intake and Output 06/29/17 06/30/17 19:00 07:00 Intake Total 600 ml Output Total 1000 ml 1200 ml Balance -1000 ml -600 ml IV Total 600 ml Output Urine Total 1000 ml 1200 ml Laboratory Tests 06/29/17 23:40: Urine Color Pale yellow, Urine Appearance Clear, Urine pH 5, Urine Specific [place] 1.020, Urine Protein 1+H, Urine Glucose (UA) 4+H, Urine Ketones Negative , Urine Occult Blood Negative, Urine Nitrite Negative, Urine Bilirubin Negative , Urine Urobilinogen Normal, Urine Leukocyte Esterase Negative, Urine RBC 0-2H, Urine WBC 0-2, Urine Squamous Epithelial Cells Occasional, Urine Bacteria None, Urine Hyaline Casts 0-2H 06/30/17 05:34: White Blood Count 13.4H, Red Blood Count 3.17L, Hemoglobin 10.2L, Hematocrit 31.7L, Mean Corpuscular Volume 100H, Mean Corpuscular Hemoglobin 32.3H, Mean Corpuscular Hemoglobin Concent 32.3, Red Cell Distribution Width 11.4L, Platelet Count 437, Mean Platelet Volume 6.0L, Neutrophils (%) (Auto) 81.8H, Lymphocytes (%) (Auto) 6.4L, Monocytes (%) (Auto) 10.5H, Eosinophils (%) (Auto) 0.3, Basophils (%) (Auto) 1.2, Sodium Level 149H, Potassium Level 4.3, Chloride Level 109H, Carbon Dioxide Level 28, Anion Gap 12, Blood Urea Nitrogen 35H, Creatinine 2.1H, Estimat Glomerular Filtration Rate 45.2, Glucose Level 309H, Calcium Level 9.9 06/30/17 08:30: Arterial Blood pH 7.492H, Arterial Blood Partial Pressure CO2 34.6L, Arterial Blood Partial Pressure O2 54.3L, Arterial Blood HCO3 25.9, Arterial Blood Oxygen Saturation 89.0L, Arterial Blood Base Excess 2.8, Juanito Test Positive 06/30/17 10:40: White Blood Count 13.7H, Red Blood Count 3.33L, Hemoglobin 10.5L, Hematocrit 32.8L, Mean Corpuscular Volume 99, Mean Corpuscular Hemoglobin 31.7H, Mean Corpuscular Hemoglobin Concent 32.1, Red Cell Distribution Width 11.5L, Platelet Count 463H, Mean Platelet Volume 6.1L, Neutrophils (%) (Auto) 81.3H, Lymphocytes (%) (Auto) 6.6L, Monocytes (%) (Auto) 11.0H, Eosinophils (%) (Auto) 0.1, Basophils (%) (Auto) 1.1, Sodium Level 150H, Potassium Level 4.1, Chloride Level 111H, Carbon Dioxide Level 29, Anion Gap 10, Blood Urea Nitrogen 36H, Creatinine 2.2H, Estimat Glomerular Filtration Rate 42.8, Glucose Level 287H, Calcium Level 10.1, Total Bilirubin 0.3, Aspartate Amino Transf (AST/SGOT) 34, Alanine Aminotransferase (ALT/SGPT) 57, Alkaline Phosphatase 92, Total Protein 7.3, Albumin 2.0L, Globulin 5.3, Albumin/Globulin Ratio 0.4L, Amylase Level 77, Lipase 291 Height (Feet): 5 Height (Inches): 7.00 Weight (Pounds): 141 General Appearance: no apparent distress Cardiovascular: tachycardia Respiratory/Chest: crackles/rales Abdomen: non tender, soft Extremities: non-pitting Neurologic: unresponsive SOFIA HAYES Jun 30, 2017 15:14
[2017-06-30 16:00] VITALS: BP 153/103
[2017-06-30] MEDS ORDERED: Piperacillin/Tazobactam 3.375 GM in D5W 110 ML IVPB SCH (16:00)
[2017-06-30] MEDS ORDERED: Ceftaroline 300 MG in NS 55 ML IVPB SCH (17:00)
[2017-06-30 20:00] VITALS: BP 174/106
[2017-07-01] VITALS: BP 162/104
[2017-07-01] MEDS: NovoLOG Insulin Flexpen SUBQ SCH ×4 (00:52→18:15)
[2017-07-01 04:00] VITALS: BP 147/107
[2017-07-01] MEDS ORDERED: cefTRIAXone 1 GM in D5W 55 ML IVPB ONE (04:00)
[2017-07-01 08:00] VITALS: BP 158/100
--- NOTE | 2017-07-01 08:44 | General Progress Note ---
Assessment/Plan Problem List: (1) DKA (diabetic ketoacidosis) ICD Codes: E13.10 - Other specified diabetes mellitus with ketoacidosis without coma SNOMED: 23070173, 265710997 Qualifiers: Qualified Codes: E10.11 - Type 1 diabetes mellitus with ketoacidosis with coma (2) Transaminitis ICD Codes: R74.0 - Nonspecific elevation of levels of transaminase and lactic acid dehydrogenase [LDH] SNOMED: 213050358, 248570624 (3) Elevated troponin ICD Codes: R74.8 - Abnormal levels of other serum enzymes SNOMED: 488670505, 375112416, 681264084 Assessment/Plan NGTF tolerated fu labs supportive care Subjective ROS Limited/Unobtainable: No Allergies: Coded Allergies: No Known Allergies (Unverified , 06/15/17) Subjective family wants full code Objective Last 24 Hour Vital Signs Date Time Temp Pulse Resp B/P (MAP) Pulse Ox O2 Delivery O2 Flow Rate FiO2 07/01/17 08:00 98.1 82 17 158/100 98 Non-Rebreather 15.0 100 07/01/17 04:00 98.9 90 24 147/107 96 Non-Rebreather 15.0 07/01/17 04:00 74 07/01/17 01:00 100.1 07/01/17 00:00 116 07/01/17 00:00 100.2 121 28 162/104 96 Non-Rebreather 15.0 06/30/17 20:00 100.1 122 35 174/106 100 Non-Rebreather 15.0 06/30/17 20:00 122 06/30/17 19:27 Non-Rebreather 15.0 100 06/30/17 19:27 100 Non-Rebreather 15.0 100 06/30/17 16:00 99.5 117 30 153/103 100 Non-Rebreather 15.0 06/30/17 16:00 117 06/30/17 12:41 102 06/30/17 12:00 98.5 117 33 168/100 93 Non-Rebreather 15.0 06/30/17 09:00 98.7 143 40 197/115 93 Non-Rebreather 15.0 Intake and Output 06/30/17 07/01/17 19:00 07:00 Intake Total 1036.25 ml 975 ml Output Total 1875 ml 1875 ml Balance -838.75 ml -900 ml IV Total 976.25 ml 525 ml Tube Feeding 60 ml 450 ml Output Urine Total 1875 ml 1875 ml # Bowel Movements 100 100 Laboratory Tests 06/30/17 10:40: White Blood Count 13.7H, Red Blood Count 3.33L, Hemoglobin 10.5L, Hematocrit 32.8L, Mean Corpuscular Volume 99, Mean Corpuscular Hemoglobin 31.7H, Mean Corpuscular Hemoglobin Concent 32.1, Red Cell Distribution Width 11.5L, Platelet Count 463H, Mean Platelet Volume 6.1L, Neutrophils (%) (Auto) 81.3H, Lymphocytes (%) (Auto) 6.6L, Monocytes (%) (Auto) 11.0H, Eosinophils (%) (Auto) 0.1, Basophils (%) (Auto) 1.1, Sodium Level 150H, Potassium Level 4.1, Chloride Level 111H, Carbon Dioxide Level 29, Anion Gap 10, Blood Urea Nitrogen 36H, Creatinine 2.2H, Estimat Glomerular Filtration Rate 42.8, Glucose Level 287H, Calcium Level 10.1, Total Bilirubin 0.3, Aspartate Amino Transf (AST/SGOT) 34, Alanine Aminotransferase (ALT/SGPT) 57, Alkaline Phosphatase 92, Total Protein 7.3, Albumin 2.0L, Globulin 5.3, Albumin/Globulin Ratio 0.4L, Amylase Level 77, Lipase 291 Height (Feet): 5 Height (Inches): 7.00 Weight (Pounds): 143 General Appearance: no apparent distress EENT: normal ENT inspection Neck: supple Cardiovascular: normal rate Respiratory/Chest: decreased breath sounds Abdomen: normal bowel sounds, non tender, soft Extremities: non-tender SAM PEREIRA Jul 01, 2017 08:44
[2017-07-01] MEDS ORDERED: Levemir Flexpen SUBQ SCH (09:00)
--- NOTE | 2017-07-01 10:00 | Pulmonology Progress Note ---
Assessment/Plan Assessment/Plan IMPRESSION: 1. Respiratory failure; now extubated 2. Cannabis usage. 3. Diabetic ketoacidosis. 4. Troponin leak. 5. Tachycardia. 6. Anoxic brain injury DISCUSSION: Continue present management and care. now extubated Poor prognosis Remains on NRBM ABG adequate Subjective Interval Events: On NRBM; RR 18-24 Constitutional: Reports: no symptoms HEENT: Repors: no symptoms Respiratory: Reports: dyspnea at rest Cardiovascular: Reports: no symptoms Gastrointestinal/Abdominal: Reports: no symptoms Allergies: Coded Allergies: No Known Allergies (Unverified , 06/15/17) Objective Last 24 Hour Vital Signs Date Time Temp Pulse Resp B/P (MAP) Pulse Ox O2 Delivery O2 Flow Rate FiO2 07/01/17 08:34 Non-Rebreather 15.0 100 07/01/17 08:34 99 Non-Rebreather 15.0 100 07/01/17 08:00 98.1 82 17 158/100 98 Non-Rebreather 15.0 100 07/01/17 04:00 98.9 90 24 147/107 96 Non-Rebreather 15.0 07/01/17 04:00 74 07/01/17 01:00 100.1 07/01/17 00:00 116 07/01/17 00:00 100.2 121 28 162/104 96 Non-Rebreather 15.0 06/30/17 20:00 100.1 122 35 174/106 100 Non-Rebreather 15.0 06/30/17 20:00 122 06/30/17 19:27 Non-Rebreather 15.0 100 06/30/17 19:27 100 Non-Rebreather 15.0 100 06/30/17 16:00 99.5 117 30 153/103 100 Non-Rebreather 15.0 06/30/17 16:00 117 06/30/17 12:41 102 06/30/17 12:00 98.5 117 33 168/100 93 Non-Rebreather 15.0 Intake and Output 06/30/17 07/01/17 19:00 07:00 Intake Total 1036.25 ml 975 ml Output Total 1875 ml 1875 ml Balance -838.75 ml -900 ml IV Total 976.25 ml 525 ml Tube Feeding 60 ml 450 ml Output Urine Total 1875 ml 1875 ml # Bowel Movements 100 100 General Appearance: no acute distress HEENT: normocephalic Respiratory/Chest: chest wall non-tender Cardiovascular: normal peripheral pulses, normal rate Laboratory Tests 06/30/17 10:40: White Blood Count 13.7H, Red Blood Count 3.33L, Hemoglobin 10.5L, Hematocrit 32.8L, Mean Corpuscular Volume 99, Mean Corpuscular Hemoglobin 31.7H, Mean Corpuscular Hemoglobin Concent 32.1, Red Cell Distribution Width 11.5L, Platelet Count 463H, Mean Platelet Volume 6.1L, Neutrophils (%) (Auto) 81.3H, Lymphocytes (%) (Auto) 6.6L, Monocytes (%) (Auto) 11.0H, Eosinophils (%) (Auto) 0.1, Basophils (%) (Auto) 1.1, Sodium Level 150H, Potassium Level 4.1, Chloride Level 111H, Carbon Dioxide Level 29, Anion Gap 10, Blood Urea Nitrogen 36H, Creatinine 2.2H, Estimat Glomerular Filtration Rate 42.8, Glucose Level 287H, Calcium Level 10.1, Total Bilirubin 0.3, Aspartate Amino Transf (AST/SGOT) 34, Alanine Aminotransferase (ALT/SGPT) 57, Alkaline Phosphatase 92, Total Protein 7.3, Albumin 2.0L, Globulin 5.3, Albumin/Globulin Ratio 0.4L, Amylase Level 77, Lipase 291 Current Medications Medications (Trade) Dose Ordered Sig/Conrado Route PRN Reason Start Time Stop Time Status Last Admin Dose Admin Acetaminophen (Tylenol) 500 mg Q6HR PRN NG Mild Pain/Temp > 100.5 07/01/17 02:45 07/31/17 02:44 Ceftaroline Fosamil 300 mg/ Sodium Chloride 55 ml @ 55 mls/hr Q12HR@0500,1700 IVPB 07/01/17 05:00 07/07/17 16:59 UNV Dextrose (Dextrose 50%) STAT PRN IV Hypoglycemia 07/01/17 22:30 07/29/17 22:29 Insulin Aspart (NovoLOG) Q6HR SUBQ 07/01/17 00:00 07/30/17 11:59 07/01/17 06:56 Insulin Detemir (Levemir) 10 units BID SUBQ 07/01/17 09:00 07/31/17 08:59 Piperacillin Sod/ Tazobactam Sod 3.375 gm/Dextrose 110 ml @ 27.5 mls/hr Q8HR@0200,1000,1800 IVPB 07/01/17 02:00 07/08/17 01:59 UNV Sodium Chloride 1,000 ml @ 75 mls/hr [id number] IV 06/30/17 23:45 07/29/17 22:29 06/30/17 23:55 Paulo Floyd MD Jul 01, 2017 10:00
[2017-07-01] MEDS: Levemir Flexpen SUBQ SCH ×2 (11:59→21:51)
[2017-07-01 12:17] VITALS: BP 159/110
--- NOTE | 2017-07-01 14:06 | Cardiac Electrophysiology PN ---
Assessment/Plan Assessment/Plan 1. Troponin leak. Levels are flat and likely due to renal failure with creatinine of 3.5. Echocardiogram EF60% 2. Tachycardia due to diabetic ketoacidosis and sepsis. 3. Respiratory failure on Vent. S/P Terminal extubation. Now full code again. May need reintubation. 4. Pneumonia, Abx per Dr Cummings 5. Pancreatitis. 6. ARF 7. Marijuana use. 8. Suspect diffuse cerebral anoxia and edema with decorticate rigidity per Dr Cano. 9. Alcohol withdrawal. 10. Azotemia and hypernatremia. On 06/12 NS 11. Full code. REFUGIO RN Subjective Subjective On MARIE. Still unresponsive. NG feeding ongoing. Objective Last 24 Hour Vital Signs Date Time Temp Pulse Resp B/P (MAP) Pulse Ox O2 Delivery O2 Flow Rate FiO2 07/01/17 12:17 98.2 86 17 159/110 99 Non-Rebreather 15.0 100 07/01/17 12:00 84 07/01/17 08:34 Non-Rebreather 15.0 100 07/01/17 08:34 99 Non-Rebreather 15.0 100 07/01/17 08:00 91 07/01/17 08:00 98.1 82 17 158/100 98 Non-Rebreather 15.0 100 07/01/17 04:00 98.9 90 24 147/107 96 Non-Rebreather 15.0 07/01/17 04:00 74 07/01/17 01:00 100.1 07/01/17 00:00 116 07/01/17 00:00 100.2 121 28 162/104 96 Non-Rebreather 15.0 06/30/17 20:00 100.1 122 35 174/106 100 Non-Rebreather 15.0 06/30/17 20:00 122 06/30/17 19:27 Non-Rebreather 15.0 100 06/30/17 19:27 100 Non-Rebreather 15.0 100 06/30/17 16:00 99.5 117 30 153/103 100 Non-Rebreather 15.0 06/30/17 16:00 117 Intake and Output 06/30/17 07/01/17 19:00 07:00 Intake Total 1036.25 ml 975 ml Output Total 1875 ml 1875 ml Balance -838.75 ml -900 ml IV Total 976.25 ml 525 ml Tube Feeding 60 ml 450 ml Output Urine Total 1875 ml 1875 ml # Bowel Movements 100 100 Objective HEAD AND NECK: No JVD. Face Mask on. NG tube in. LUNGS: Clear. CARDIOVASCULAR: Regular S1 and S2 with no gallop or murmur. ABDOMEN: Soft and nontender. EXTREMITIES: No pitting edema. ALBERT ROWAN Jul 01, 2017 14:06
[2017-07-01] MEDS: Ceftaroline 300 MG in NS 55 ML IVPB SCH (15:47)
[2017-07-01] MEDS: Piperacillin/Tazobactam 3.375 GM in D5W 110 ML IVPB SCH ×2 (15:49→21:43)
[2017-07-01 16:00] VITALS: BP 158/93
--- NOTE | 2017-07-01 16:19 | Infectious Diseases Prog Note ---
Assessment/Plan Problems: (1) Pneumonia Assessment & Plan: with possible aspiration due to altered mental status , await sputum culture , continue zosyn and ceftaroline, monitor CXR (2) Sepsis Assessment & Plan: due to the above, will repeat blood culture , restart antibiotics (3) Pancreatitis Assessment & Plan: with no significant improvement , monitor lipase, GI is following (4) Cardiopulmonary arrest Assessment & Plan: was extubated from mechanical ventilation , as per family request and made DNR and started on morphin drip, but family changed his code status today to full code , he is on tele monitor , cardiology is following (5) Anoxic cerebral edema Assessment & Plan: with no improvement, has poor prognosis , no tracheostomy , or PEG tube placement as per family , now full code as per family request , but postural and spastic and unresponsive . Subjective ROS Limited/Unobtainable: Yes Allergies: Coded Allergies: No Known Allergies (Unverified , 06/15/17) Subjective he is now extubated, moved to [place] , made full code again by family , still unresponsive, tachypneic, and tachycardic , postural and spastic in the lower extremities , off morphine drip , was febrile earlier but now he is not . Objective Vital Signs Last 24 Hour Vital Signs Date Time Temp Pulse Resp B/P (MAP) Pulse Ox O2 Delivery O2 Flow Rate FiO2 07/01/17 12:17 98.2 86 17 159/110 99 Non-Rebreather 15.0 100 07/01/17 12:00 84 07/01/17 08:34 Non-Rebreather 15.0 100 07/01/17 08:34 99 Non-Rebreather 15.0 100 07/01/17 08:00 91 07/01/17 08:00 98.1 82 17 158/100 98 Non-Rebreather 15.0 100 07/01/17 04:00 98.9 90 24 147/107 96 Non-Rebreather 15.0 07/01/17 04:00 74 07/01/17 01:00 100.1 07/01/17 00:00 116 07/01/17 00:00 100.2 121 28 162/104 96 Non-Rebreather 15.0 06/30/17 20:00 100.1 122 35 174/106 100 Non-Rebreather 15.0 06/30/17 20:00 122 06/30/17 19:27 Non-Rebreather 15.0 100 06/30/17 19:27 100 Non-Rebreather 15.0 100 Height (Feet): 5 Height (Inches): 7.00 Weight (Pounds): 143 General Appearance: WD/WN, no acute distress HEENT: normocephalic, atraumatic, anicteric, mucous membranes moist, no JVD Respiratory/Chest: chest wall non-tender, respiratory distress, decreased breath sounds, crackles/rales, expiratory wheezing Cardiovascular: regular rhythm, no gallop/murmur, no JVD, tachycardia Abdomen: no organomegaly, no mass, no scars, absent bowel sounds, distended Extremities: no cyanosis, no clubbing Skin: no rash, no lesions, no ulcers Neurologic/Psychiatric: unresponsiveness Current Medications Medications (Trade) Dose Ordered Sig/Conrado Route PRN Reason Start Time Stop Time Status Last Admin Dose Admin Acetaminophen (Tylenol) 500 mg Q6HR PRN NG Mild Pain/Temp > 100.5 07/01/17 02:45 07/31/17 02:44 Ceftaroline Fosamil 300 mg/ Sodium Chloride 55 ml @ 55 mls/hr Q12HR@0100,1300 IVPB 07/01/17 13:00 07/08/17 12:59 07/01/17 15:47 Dextrose (Dextrose 50%) STAT PRN IV Hypoglycemia 07/01/17 22:30 07/29/17 22:29 Insulin Aspart (NovoLOG) Q6HR SUBQ 07/01/17 00:00 07/30/17 11:59 07/01/17 12:01 Insulin Detemir (Levemir) 15 units Q12HR SUBQ 07/01/17 11:00 07/31/17 10:59 07/01/17 11:59 Piperacillin Sod/ Tazobactam Sod 3.375 gm/Dextrose 110 ml @ 27.5 mls/hr Q8HR IVPB 07/01/17 14:00 07/08/17 13:59 07/01/17 15:49 Sodium Chloride 1,000 ml @ 75 mls/hr [id number] IV 06/30/17 23:45 07/29/17 22:29 07/01/17 15:48 Saad Cummings M.D. Jul 01, 2017 16:19
[2017-07-01 20:00] VITALS: BP 155/90
[2017-07-02] VITALS: BP 151/98
[2017-07-02] MEDS: NovoLOG Insulin Flexpen SUBQ SCH ×5 (00:19→23:56)
[2017-07-02] MEDS: Ceftaroline 300 MG in NS 55 ML IVPB SCH ×2 (01:00→13:53)
[2017-07-02 04:00] VITALS: BP 145/85
[2017-07-02] MEDS: Piperacillin/Tazobactam 3.375 GM in D5W 110 ML IVPB SCH ×3 (05:57→21:31)
[2017-07-02 08:00] VITALS: BP 150/96
--- NOTE | 2017-07-02 08:59 | Diagnostic Imaging Report ---
Indication: Altered mental status. Technique: Continuous helical CT scanning of the head was performed utilizing automated exposure control without intravenous contrast material. Axial and coronal reconstructions were obtained. Comparison: 06/19/2017 CT dose: Total DLP 1055 mGycm; CTDI vol 0.5, 0.5, 52.3 mGy Findings: Please note that there is significant patient motion which renders images of the posterior fossa and skull base almost nondiagnostic. There is no acute intracranial hemorrhage, mass effect or midline shift. There is interval decrease in cerebral edema with interval decreased sulcal effacement and hindu of some osborne-white matter differentiation. There are hypodensities in the bilateral basal ganglia The ventricles, cisterns and sulci are mildly prominent. No appreciable skull fracture however images the skull base are severely limited. There is interval improvement in right maxillary sinus disease. There is persistent complete opacification of the left maxillary sinus. Mucosal thickening noted in some ethmoid air cells. Mastoid air cells are grossly clear. IMPRESSION: Motion degraded exam, particularly degrading images of the skull base and posterior fossa. Within these limitations: Interval decreased cerebral edema with decreased sulcal effacement and hindu of some osborne-white differentiation. Subtle hypodensities in the bilateral basal ganglia, likely sequale of known prior anoxic event. Slight prominence of the ventricles. Short-term interval follow-up head CT recommended to monitor evolution. No acute intracranial hemorrhage. The CT scanner at [facility] is accredited by the [employer] and the scans are performed using protocols designed to limit radiation exposure to as low as reasonably achievable to attain images of sufficient resolution adequate for diagnostic evaluation.
[2017-07-02] MEDS: Levemir Flexpen SUBQ SCH ×2 (09:21→21:29)
--- NOTE | 2017-07-02 11:48 | Pulmonology Progress Note ---
Assessment/Plan Assessment/Plan IMPRESSION: 1. Respiratory failure; now extubated 2. Cannabis usage. 3. Diabetic ketoacidosis. 4. Troponin leak. 5. Tachycardia. 6. Anoxic brain injury DISCUSSION: Continue present management and care. now extubated Poor prognosis Remains on NRBM ABG adequate Subjective Interval Events: no changes reported Constitutional: Reports: no symptoms HEENT: Repors: no symptoms Respiratory: Reports: no symptoms Cardiovascular: Reports: no symptoms Gastrointestinal/Abdominal: Reports: no symptoms Allergies: Coded Allergies: No Known Allergies (Unverified , 06/15/17) Objective Last 24 Hour Vital Signs Date Time Temp Pulse Resp B/P (MAP) Pulse Ox O2 Delivery O2 Flow Rate FiO2 07/02/17 08:00 78 07/02/17 08:00 97.7 79 20 150/96 100 Non-Rebreather 100 07/02/17 04:00 74 07/02/17 04:00 98.2 74 24 145/85 99 Non-Rebreather 100 07/02/17 00:00 91 07/02/17 00:00 98.2 91 24 151/98 99 Non-Rebreather 100 07/01/17 20:00 93 07/01/17 20:00 99.0 93 24 155/90 99 Non-Rebreather 100 07/01/17 19:05 Non-Rebreather 15.0 100 07/01/17 19:05 99 Non-Rebreather 15.0 100 07/01/17 16:00 97.9 75 17 158/93 100 Non-Rebreather 15.0 100 07/01/17 16:00 79 07/01/17 12:17 98.2 86 17 159/110 99 Non-Rebreather 15.0 100 07/01/17 12:00 84 Intake and Output 07/01/17 07/02/17 19:00 07:00 Intake Total 945 ml 1620.0 ml Output Total 1000 ml 700 ml Balance -55 ml 920.0 ml Free Water 200 ml 100 ml IV Total 75 ml 970.0 ml Tube Feeding 550 ml 550 ml Other 120 ml Output Urine Total 1000 ml 700 ml # Bowel Movements 100 General Appearance: no acute distress HEENT: normocephalic Respiratory/Chest: chest wall non-tender, lungs clear Cardiovascular: normal peripheral pulses, normal rate Abdomen: normal bowel sounds Microbiology Date/Time Source Procedure Growth Status 06/30/17 15:52 Blood Blood Culture - Preliminary NO GROWTH AFTER 24 HOURS Resulted 06/30/17 15:45 Blood Blood Culture - Preliminary NO GROWTH AFTER 24 HOURS Resulted 06/29/17 23:40 Indwelling Cath Urine Culture - Preliminary NO GROWTH Resulted Current Medications Medications (Trade) Dose Ordered Sig/Conrado Route PRN Reason Start Time Stop Time Status Last Admin Dose Admin Acetaminophen (Tylenol) 500 mg Q6HR PRN NG Mild Pain/Temp > 100.5 07/01/17 02:45 07/31/17 02:44 Ceftaroline Fosamil 300 mg/ Sodium Chloride 55 ml @ 55 mls/hr Q12HR@0100,1300 IVPB 07/01/17 13:00 07/08/17 12:59 07/02/17 01:00 Dextrose (Dextrose 50%) STAT PRN IV Hypoglycemia 07/01/17 22:30 07/29/17 22:29 Insulin Aspart (NovoLOG) Q6HR SUBQ 07/01/17 00:00 07/30/17 11:59 07/02/17 00:19 Insulin Detemir (Levemir) 15 units Q12HR SUBQ 07/01/17 11:00 07/31/17 10:59 07/02/17 09:21 Piperacillin Sod/ Tazobactam Sod 3.375 gm/Dextrose 110 ml @ 27.5 mls/hr Q8HR IVPB 07/01/17 14:00 07/08/17 13:59 07/02/17 05:57 Sodium Chloride 1,000 ml @ 75 mls/hr [id number] IV 06/30/17 23:45 07/29/17 22:29 07/02/17 11:04 Paulo Floyd MD Jul 02, 2017 11:48
[2017-07-02 12:00] VITALS: BP 135/99
--- NOTE | 2017-07-02 12:17 | Neurology Progress Note ---
Interim History Interim History ROS Limited/Unobtainable: Yes Complaints: coma Events: unchanged, no sz activity, ng feeding 02 mask Objective Physical Exam Last Vital Signs Date Time Temp Pulse Resp B/P (MAP) Pulse Ox O2 Delivery O2 Flow Rate FiO2 07/02/17 08:00 78 07/02/17 08:00 97.7 20 150/96 100 Non-Rebreather 100 07/01/17 19:05 15.0 General: other - cachectic,o2 mask Head: normocophalic, atraumatic Neck: no rigidity EENT: benign Neurologic Exam Mental Status: other - coma Speech: other Language: other Cranial Nerve II: no papilledema, other Cranial Nerves III, IV, : pupils - 4mmsluggish Cranial Nerve V: other - no corneal Cranial Nerve VII: other Cranial Nerve VIII: no nystagmus Cranial Nerve IX: other - no gag Cranial Nerve XI: other Cranial Nerve XII: no tongue atrophy/fasciculations Motor System: other - diffuse rigidity Sensory: other Coordination: other Deep Tendon Reflexes: 0 bicep (L), 0 bicep (R), 0 tricep (L), 0 tricep (R), 0 brachioradialis (L), 0 brachioradialis (R), 0 knee (L), 0 knee (R), 0 ankle (L) , 0 ankle (R) Reflexes: mute plantar (L), mute plantar (R) Stance: other Gait: other Impression/Recommendations Problems: (1) Anoxic encephalopathy syndrome (2) DKA (diabetic ketoacidosis) (3) Cardiopulmonary arrest Status: unchanged Recommendations #[id number] CT brain noted d/w staff EEG c/w severe encephalopathy d/w family x 15min re prognosis,status re.DNR/G BLAINE Wiggins Jul 02, 2017 12:17
--- NOTE | 2017-07-02 12:42 | GI Progress Note ---
Assessment/Plan Problems: (1) Shock liver ICD Codes: K72.00 - Acute and subacute hepatic failure without coma SNOMED: 886319492 (2) Anoxic cerebral edema ICD Codes: G93.6 - Cerebral edema; R09.02 - Hypoxemia SNOMED: 4526200, 433078713 (3) Transaminitis ICD Codes: R74.0 - Nonspecific elevation of levels of transaminase and lactic acid dehydrogenase [LDH] SNOMED: 477918388, 786798969 (4) Alcohol withdrawal ICD Codes: F10.239 - Alcohol dependence with withdrawal, unspecified SNOMED: 847841040 (5) Pancreatitis ICD Codes: K85.90 - Acute pancreatitis without necrosis or infection, unspecified SNOMED: 83801596 Status: unchanged Status Narrative Discussed with Dr. Rico. Assessment/Plan comfort care discontinued, now full code NGTF tolerated, consider PEG fu labs supportive care Subjective Subjective limited Objective Last 24 Hour Vital Signs Date Time Temp Pulse Resp B/P (MAP) Pulse Ox O2 Delivery O2 Flow Rate FiO2 07/02/17 08:00 78 07/02/17 08:00 97.7 79 20 150/96 100 Non-Rebreather 100 07/02/17 04:00 74 07/02/17 04:00 98.2 74 24 145/85 99 Non-Rebreather 100 07/02/17 00:00 91 07/02/17 00:00 98.2 91 24 151/98 99 Non-Rebreather 100 07/01/17 20:00 93 07/01/17 20:00 99.0 93 24 155/90 99 Non-Rebreather 100 07/01/17 19:05 Non-Rebreather 15.0 100 07/01/17 19:05 99 Non-Rebreather 15.0 100 07/01/17 16:00 97.9 75 17 158/93 100 Non-Rebreather 15.0 100 07/01/17 16:00 79 Intake and Output 07/01/17 07/02/17 19:00 07:00 Intake Total 945 ml 1620.0 ml Output Total 1000 ml 700 ml Balance -55 ml 920.0 ml Free Water 200 ml 100 ml IV Total 75 ml 970.0 ml Tube Feeding 550 ml 550 ml Other 120 ml Output Urine Total 1000 ml 700 ml # Bowel Movements 100 Height (Feet): 5 Height (Inches): 7.00 Weight (Pounds): 119 Cardiovascular: normal rate Respiratory/Chest: no respiratory distress Extremities: non-tender Lashawn Mason N.P. Jul 02, 2017 12:42
--- NOTE | 2017-07-02 14:48 | Cardiac Electrophysiology PN ---
Assessment/Plan Assessment/Plan 1. Troponin leak. Levels are flat and due to renal failure with creatinine of 3.5. Echocardiogram EF60% 2. Tachycardia due to diabetic ketoacidosis and sepsis. 3. Respiratory failure on Vent. S/P Terminal extubation.But full code again. 4. Pneumonia, Abx per Dr Cummings 5. Pancreatitis. 6. ARF 7. Marijuana use. 8. Suspect diffuse cerebral anoxia and edema with decorticate rigidity per Dr Cano. 9. Alcohol withdrawal. 10. Azotemia and hypernatremia. On 06/12 NS 11. Full code. DW RN Subjective Subjective On MARIE, unresponsive with NG feeding ongoing. Objective Last 24 Hour Vital Signs Date Time Temp Pulse Resp B/P (MAP) Pulse Ox O2 Delivery O2 Flow Rate FiO2 07/02/17 12:00 97.5 85 20 135/99 100 Non-Rebreather 100 07/02/17 12:00 89 07/02/17 08:00 78 07/02/17 08:00 97.7 79 20 150/96 100 Non-Rebreather 100 07/02/17 06:51 Non-Rebreather 15.0 100 07/02/17 06:50 99 Non-Rebreather 15.0 100 07/02/17 04:00 74 07/02/17 04:00 98.2 74 24 145/85 99 Non-Rebreather 100 07/02/17 00:00 91 07/02/17 00:00 98.2 91 24 151/98 99 Non-Rebreather 100 07/01/17 20:00 93 07/01/17 20:00 99.0 93 24 155/90 99 Non-Rebreather 100 07/01/17 19:05 Non-Rebreather 15.0 100 07/01/17 19:05 99 Non-Rebreather 15.0 100 07/01/17 16:00 97.9 75 17 158/93 100 Non-Rebreather 15.0 100 07/01/17 16:00 79 Intake and Output 07/01/17 07/02/17 19:00 07:00 Intake Total 945 ml 1620.0 ml Output Total 1000 ml 700 ml Balance -55 ml 920.0 ml Free Water 200 ml 100 ml IV Total 75 ml 970.0 ml Tube Feeding 550 ml 550 ml Other 120 ml Output Urine Total 1000 ml 700 ml # Bowel Movements 100 Microbiology Date/Time Source Procedure Growth Status 06/30/17 15:52 Blood Blood Culture - Preliminary NO GROWTH AFTER 24 HOURS Resulted 06/30/17 15:45 Blood Blood Culture - Preliminary NO GROWTH AFTER 24 HOURS Resulted 07/01/17 00:30 Sputum Expectorated Gram Stain - Final Resulted 07/01/17 00:30 Sputum Expectorated Sputum Culture Pending Resulted 06/29/17 23:40 Indwelling Cath Urine Culture - Preliminary NO GROWTH Resulted Objective HEAD AND NECK: No JVD. Face Mask on. NG tube in. LUNGS: Clear. CARDIOVASCULAR: Regular S1 and S2 with no gallop or murmur. ABDOMEN: Soft and nontender. EXTREMITIES: No pitting edema. ALBERT ROWAN Jul 02, 2017 14:48
--- NOTE | 2017-07-02 15:28 | Infectious Diseases Prog Note ---
Assessment/Plan Problems: (1) Pneumonia Assessment & Plan: with possible aspiration due to altered mental status , await sputum culture , continue zosyn and ceftaroline, monitor CXR (2) Sepsis Assessment & Plan: due to the above, repeated blood culture is negative so far , continue wide spectrum antibiotics (3) Pancreatitis Assessment & Plan: monitor lipase, GI is following, restarted on tube feeding (4) Cardiopulmonary arrest Assessment & Plan: was extubated from mechanical ventilation , as per family request and made DNR and started on morphin drip, but family changed his code status today to full code , he is on tele monitor , cardiology is following (5) Anoxic cerebral edema Assessment & Plan: with no improvement, has poor prognosis , no tracheostomy , or PEG tube placement as per family , now full code as per family request , but postural and spastic and unresponsive . Subjective ROS Limited/Unobtainable: Yes Allergies: Coded Allergies: No Known Allergies (Unverified , 06/15/17) Subjective he is tachypneic , on high flow oxygen via mask, in MARIE , full code again by family , still unresponsive, tachycardic , postural and spastic in the lower extremities , off morphine drip , afebrile . Objective Vital Signs Last 24 Hour Vital Signs Date Time Temp Pulse Resp B/P (MAP) Pulse Ox O2 Delivery O2 Flow Rate FiO2 07/02/17 12:00 97.5 85 20 135/99 100 Non-Rebreather 100 07/02/17 12:00 89 07/02/17 08:00 78 07/02/17 08:00 97.7 79 20 150/96 100 Non-Rebreather 100 07/02/17 06:51 Non-Rebreather 15.0 100 07/02/17 06:50 99 Non-Rebreather 15.0 100 07/02/17 04:00 74 07/02/17 04:00 98.2 74 24 145/85 99 Non-Rebreather 100 07/02/17 00:00 91 07/02/17 00:00 98.2 91 24 151/98 99 Non-Rebreather 100 07/01/17 20:00 93 07/01/17 20:00 99.0 93 24 155/90 99 Non-Rebreather 100 07/01/17 19:05 Non-Rebreather 15.0 100 07/01/17 19:05 99 Non-Rebreather 15.0 100 07/01/17 16:00 97.9 75 17 158/93 100 Non-Rebreather 15.0 100 07/01/17 16:00 79 Height (Feet): 5 Height (Inches): 7.00 Weight (Pounds): 119 General Appearance: WD/WN, cachetic, other - tachypniec HEENT: normocephalic, atraumatic, anicteric, mucous membranes moist, supple, other - pupils are pinpoints Respiratory/Chest: chest wall non-tender, respiratory distress, decreased breath sounds, crackles/rales, expiratory wheezing Cardiovascular: normal peripheral pulses, normal rate, regular rhythm, no JVD, tachycardia Abdomen: non distended, no mass, no scars, absent bowel sounds Extremities: no cyanosis, no clubbing Skin: no rash, no lesions, no ulcers Neurologic/Psychiatric: unresponsiveness Microbiology Date/Time Source Procedure Growth Status 06/30/17 15:52 Blood Blood Culture - Preliminary NO GROWTH AFTER 24 HOURS Resulted 06/30/17 15:45 Blood Blood Culture - Preliminary NO GROWTH AFTER 24 HOURS Resulted 07/01/17 00:30 Sputum Expectorated Gram Stain - Final Resulted 07/01/17 00:30 Sputum Expectorated Sputum Culture Pending Resulted 06/29/17 23:40 Indwelling Cath Urine Culture - Preliminary NO GROWTH Resulted Current Medications Medications (Trade) Dose Ordered Sig/Conrado Route PRN Reason Start Time Stop Time Status Last Admin Dose Admin Acetaminophen (Tylenol) 500 mg Q6HR PRN NG Mild Pain/Temp > 100.5 07/01/17 02:45 07/31/17 02:44 Ceftaroline Fosamil 300 mg/ Sodium Chloride 55 ml @ 55 mls/hr Q12HR@0100,1300 IVPB 07/01/17 13:00 07/08/17 12:59 07/02/17 13:53 Dextrose (Dextrose 50%) STAT PRN IV Hypoglycemia 07/01/17 22:30 07/29/17 22:29 Insulin Aspart (NovoLOG) Q6HR SUBQ 07/01/17 00:00 07/30/17 11:59 07/02/17 12:12 Insulin Detemir (Levemir) 15 units Q12HR SUBQ 07/01/17 11:00 07/31/17 10:59 07/02/17 09:21 Piperacillin Sod/ Tazobactam Sod 3.375 gm/Dextrose 110 ml @ 27.5 mls/hr Q8HR IVPB 07/01/17 14:00 07/08/17 13:59 07/02/17 13:37 Sodium Chloride 1,000 ml @ 75 mls/hr [id number] IV 06/30/17 23:45 07/29/17 22:29 07/02/17 11:04 Saad Cummings M.D. Jul 02, 2017 15:28
[2017-07-02 16:00] VITALS: BP 155/93
--- NOTE | 2017-07-02 16:15 | Electroencephalogram ---
DATE OF PROCEDURE: 07/01/2017 PROCEDURE PERFORMED: Electroencephalography. REFERRING PHYSICIAN: Gopi Matosn M.D. HISTORY: This is a 32-year-old man, status post full arrest, now on mechanical respiration, oxygen mask. EEG requested to assess the cortical activity, rule out a seizure activity. TECHNIQUE: EEG was done using 18 electrodes placed [id number], [id number] montages according to 10/20 International System. The patient described as being stuporous, confused, poorly cooperative, and aphasic. During recording, the patient was noted frequently having fast respiration. On presence of breathing mask, there was significant amount of motor/movement artifacts. EEG was done using 18 electrodes placed scalp to scalp, scalp to ear montages according to 10/20 International System. Throughout the recording, background activity consisted of a poorly identifiable background activity with persistent low voltage generalized theta activities, intermittent 1 to 2 per second high voltage bifrontal and generalized delta wave transients, at times in short few seconds runs. Significant amount of EMG movement artifacts were noted. There was no identifiable spike and wave activities. No paroxysmal epileptiform activities noted. IMPRESSION: Markedly abnormal EEG, presence of severe diffuse slowing with intermittent bifrontal/generalized delta activity. COMMENT: Above abnormality indicated for severe generalized encephalopathy, toxic, metabolic, anoxic, or drug induced. COMMENT: Absence of paroxysmal seizure activities does not rule out seizure disorder. Timoteo Cano M.D. DR: MINA JOB#: [id number] CC:
[2017-07-02] MEDS ORDERED: 1/2 NS 1000ml IV ONE ×3 (17:06→18:57)
--- NOTE | 2017-07-02 17:48 | Nephrology Progress Note ---
Assessment/Plan Problem List: (1) Hypernatremia (2) Hypokalemia Assessment: corrected (3) Fever (4) Acidosis (5) Respiratory distress (6) Pancreatitis (7) Elevated troponin (8) Alcohol withdrawal (9) Pneumonia (10) Sepsis (11) Cardiopulmonary arrest (12) Metabolic acidosis (13) DKA (diabetic ketoacidosis) Plan Continue current treatment plan Monitor lytes, correct prn Monitor neuro status, f/u with neurology rec Continue NG tube feeding and IVF Strict glycemic control Abx per ID Monitor intake and output Free water flush Continue carpenter Subjective ROS Limited/Unobtainable: Yes Subjective Seen in MARIE, on non rebreather mask,unresponsive, postural and spastic in the lower extremities , afebrile Objective Objective Last 24 Hour Vital Signs Date Time Temp Pulse Resp B/P (MAP) Pulse Ox O2 Delivery O2 Flow Rate FiO2 07/02/17 16:00 88 07/02/17 16:00 97.3 85 18 155/93 96 Non-Rebreather 100 07/02/17 12:00 97.5 85 20 135/99 100 Non-Rebreather 100 07/02/17 12:00 89 07/02/17 08:00 78 07/02/17 08:00 97.7 79 20 150/96 100 Non-Rebreather 100 07/02/17 06:51 Non-Rebreather 15.0 100 07/02/17 06:50 99 Non-Rebreather 15.0 100 07/02/17 04:00 74 07/02/17 04:00 98.2 74 24 145/85 99 Non-Rebreather 100 07/02/17 00:00 91 07/02/17 00:00 98.2 91 24 151/98 99 Non-Rebreather 100 07/01/17 20:00 93 07/01/17 20:00 99.0 93 24 155/90 99 Non-Rebreather 100 07/01/17 19:05 Non-Rebreather 15.0 100 07/01/17 19:05 99 Non-Rebreather 15.0 100 Intake and Output 07/01/17 07/02/17 19:00 07:00 Intake Total 945 ml 1620.0 ml Output Total 1000 ml 700 ml Balance -55 ml 920.0 ml Free Water 200 ml 100 ml IV Total 75 ml 970.0 ml Tube Feeding 550 ml 550 ml Other 120 ml Output Urine Total 1000 ml 700 ml # Bowel Movements 100 Height (Feet): 5 Height (Inches): 7.00 Weight (Pounds): 119 General Appearance: no apparent distress EENT: normal ENT inspection Neck: non-tender Cardiovascular: normal rate Respiratory/Chest: decreased breath sounds, other - NON REBREATHER MASK Abdomen: soft Genitourinary/Rectal: other - CARPENTER Extremities: other - SPASTIC Neurologic: unresponsive Hannah Johnson N.P. Jul 02, 2017 17:48
[2017-07-02] MEDS ORDERED: NS 500ML ONE (18:49)
[2017-07-02] MEDS ORDERED: Tubing IV Secondary IV ONE (18:49)
[2017-07-02 20:00] VITALS: BP 150/95
[2017-07-03] VITALS: BP 119/46
[2017-07-03] MEDS: Ceftaroline 300 MG in NS 55 ML IVPB SCH ×2
[2017-07-03 04:00] VITALS: BP 153/92
[2017-07-03 04:38] LABS: BASOPHILS % (AUTO) 0.8 % (0.0-2.0); EOSINOPHILS % (AUTO) 2.5 % (0.0-3.0); HEMATOCRIT 30.7 % (42.0-52.0); HEMOGLOBIN 9.6 G/DL (14.2-18.0); LYMPHOCYTES % (AUTO) 6.8 % (20.0-45.0); MEAN CORPUSCULAR VOLUME 101 FL (80-99); MONOCYTES % (AUTO) 11.9 % (1.0-10.0); NEUTROPHILS % (AUTO) 78.1 % (45.0-75.0); PLATELET COUNT 295 K/UL (150-450); RED BLOOD COUNT 3.03 M/UL (4.70-6.10); WHITE BLOOD COUNT 13.3 K/UL (4.8-10.8)
[2017-07-03 04:52] LABS: ANION GAP 9 mmol/L (5-15); BLOOD UREA NITROGEN 50 mg/dL (7-18); CALCIUM 9.3 MG/DL (8.5-10.1); CARBON DIOXIDE 31 MMOL/L (21-32); CHLORIDE 117 MMOL/L (98-107); CREATININE 1.8 MG/DL (0.55-1.30); POTASSIUM 3.5 MMOL/L (3.5-5.1); SODIUM 157 MMOL/L (136-145)
[2017-07-03] MEDS: Piperacillin/Tazobactam 3.375 GM in D5W 110 ML IVPB SCH ×3 (05:50→21:00)
[2017-07-03] MEDS: NovoLOG Insulin Flexpen SUBQ SCH ×4 (05:51→23:16)
[2017-07-03 08:00] VITALS: BP 157/101
[2017-07-03] MEDS: Levemir Flexpen SUBQ SCH ×2 (09:26→20:57)
[2017-07-03 12:00] VITALS: BP 156/92
--- NOTE | 2017-07-03 12:30 | Neurology Progress Note ---
Interim History Interim History ROS Limited/Unobtainable: Yes Complaints: coma Events: unchanged, no sz activity, ng feeding 02 mask no fever Objective Physical Exam Last Vital Signs Date Time Temp Pulse Resp B/P (MAP) Pulse Ox O2 Delivery O2 Flow Rate FiO2 07/03/17 08:00 68 07/03/17 07:20 97 Non-Rebreather 15.0 100 07/03/17 04:00 98.3 20 153/92 Laboratory Tests Test 07/03/17 03:50 White Blood Count 13.3 K/UL (4.8-10.8) H Red Blood Count 3.03 M/UL (4.70-6.10) L Hemoglobin 9.6 G/DL (14.2-18.0) L Hematocrit 30.7 % (42.0-52.0) L Mean Corpuscular Volume 101 FL (80-99) H Mean Corpuscular Hemoglobin 31.8 PG (27.0-31.0) H Mean Corpuscular Hemoglobin Concent 31.4 G/DL (32.0-36.0) L Red Cell Distribution Width 12.0 % (11.6-14.8) Platelet Count 295 K/UL (150-450) Mean Platelet Volume 6.6 FL (6.5-10.1) Neutrophils (%) (Auto) 78.1 % (45.0-75.0) H Lymphocytes (%) (Auto) 6.8 % (20.0-45.0) L Monocytes (%) (Auto) 11.9 % (1.0-10.0) H Eosinophils (%) (Auto) 2.5 % (0.0-3.0) Basophils (%) (Auto) 0.8 % (0.0-2.0) Sodium Level 157 MMOL/L (136-145) H Potassium Level 3.5 MMOL/L (3.5-5.1) Chloride Level 117 MMOL/L (98-107) H Carbon Dioxide Level 31 MMOL/L (21-32) Anion Gap 9 mmol/L (5-15) Blood Urea Nitrogen 50 mg/dL (7-18) H Creatinine 1.8 MG/DL (0.55-1.30) H Estimat Glomerular Filtration Rate 53.9 mL/min (>60) Glucose Level 283 MG/DL (74-106) H Calcium Level 9.3 MG/DL (8.5-10.1) General: other - cachectic,o2 mask Head: normocophalic, atraumatic Neck: no rigidity EENT: benign Neurologic Exam Mental Status: other - coma Speech: other Language: other Cranial Nerve II: no papilledema, other Cranial Nerves III, IV, : pupils - 4mmsluggish Cranial Nerve V: other - no corneal Cranial Nerve VII: other Cranial Nerve VIII: no nystagmus Cranial Nerve IX: other - no gag Cranial Nerve XI: other Cranial Nerve XII: no tongue atrophy/fasciculations Motor System: other - diffuse rigidity Sensory: other Coordination: other Deep Tendon Reflexes: 0 bicep (L), 0 bicep (R), 0 tricep (L), 0 tricep (R), 0 brachioradialis (L), 0 brachioradialis (R), 0 knee (L), 0 knee (R), 0 ankle (L) , 0 ankle (R) Reflexes: mute plantar (L), mute plantar (R) Stance: other Gait: other Impression/Recommendations Problems: (1) Anoxic encephalopathy syndrome (2) DKA (diabetic ketoacidosis) (3) Cardiopulmonary arrest Status: unchanged Recommendations #[id number] CT brain noted d/w staff EEG c/w severe encephalopathy d/w extended family/mom dad x 15min re prognosis//,status/ causes of Arrest BLAINE VILLEGAS Jul 03, 2017 12:30
[2017-07-03] MEDS: Ceftaroline 400 MG in NS 55 ML IV SCH (14:27)
--- NOTE | 2017-07-03 15:31 | GI Progress Note ---
Assessment/Plan Problems: (1) Shock liver ICD Codes: K72.00 - Acute and subacute hepatic failure without coma SNOMED: 417794372 (2) Anoxic cerebral edema ICD Codes: G93.6 - Cerebral edema; R09.02 - Hypoxemia SNOMED: 4795516, 402300500 (3) Transaminitis ICD Codes: R74.0 - Nonspecific elevation of levels of transaminase and lactic acid dehydrogenase [LDH] SNOMED: 975487250, 272206159 (4) Alcohol withdrawal ICD Codes: F10.239 - Alcohol dependence with withdrawal, unspecified SNOMED: 488814465 (5) Pancreatitis ICD Codes: K85.90 - Acute pancreatitis without necrosis or infection, unspecified SNOMED: 54392392 Status: unchanged Status Narrative Discussed with Dr. Rico. Assessment/Plan PEG scheduled for tomorrow >> mother has agreed - NGTFs, NPO @ [place]. - hold all blood thinners tonight electrolyte correction fu labs Subjective Subjective limited Objective Last 24 Hour Vital Signs Date Time Temp Pulse Resp B/P (MAP) Pulse Ox O2 Delivery O2 Flow Rate FiO2 07/03/17 12:00 97.5 75 18 156/92 100 Non-Rebreather 15.0 100 07/03/17 11:36 74 07/03/17 08:00 98.1 68 22 157/101 100 Non-Rebreather 15.0 100 07/03/17 08:00 68 07/03/17 07:20 97 Non-Rebreather 15.0 100 07/03/17 07:20 Non-Rebreather 15.0 100 07/03/17 04:00 86 07/03/17 04:00 98.3 84 20 153/92 100 Non-Rebreather 15.0 100 07/03/17 00:00 94 07/03/17 00:00 98.2 94 22 119/46 96 Non-Rebreather 15.0 100 07/02/17 20:00 98.7 100 30 150/95 97 Non-Rebreather 15.0 100 07/02/17 20:00 99 07/02/17 19:10 Non-Rebreather 15.0 100 07/02/17 19:10 97 Non-Rebreather 15.0 100 07/02/17 16:00 88 07/02/17 16:00 97.3 85 18 155/93 96 Non-Rebreather 100 Intake and Output 07/02/17 07/03/17 19:00 07:00 Intake Total 1370.0 ml 1706.25 ml Output Total 750 ml 700 ml Balance 620.0 ml 1006.25 ml IV Total 870.0 ml 806.25 ml Tube Feeding 500 ml 600 ml Other 300 ml Output Urine Total 600 ml 700 ml Stool Total 150 ml Laboratory Tests Test 07/03/17 03:50 White Blood Count 13.3 K/UL (4.8-10.8) H Red Blood Count 3.03 M/UL (4.70-6.10) L Hemoglobin 9.6 G/DL (14.2-18.0) L Hematocrit 30.7 % (42.0-52.0) L Mean Corpuscular Volume 101 FL (80-99) H Mean Corpuscular Hemoglobin 31.8 PG (27.0-31.0) H Mean Corpuscular Hemoglobin Concent 31.4 G/DL (32.0-36.0) L Red Cell Distribution Width 12.0 % (11.6-14.8) Platelet Count 295 K/UL (150-450) Mean Platelet Volume 6.6 FL (6.5-10.1) Neutrophils (%) (Auto) 78.1 % (45.0-75.0) H Lymphocytes (%) (Auto) 6.8 % (20.0-45.0) L Monocytes (%) (Auto) 11.9 % (1.0-10.0) H Eosinophils (%) (Auto) 2.5 % (0.0-3.0) Basophils (%) (Auto) 0.8 % (0.0-2.0) Sodium Level 157 MMOL/L (136-145) H Potassium Level 3.5 MMOL/L (3.5-5.1) Chloride Level 117 MMOL/L (98-107) H Carbon Dioxide Level 31 MMOL/L (21-32) Anion Gap 9 mmol/L (5-15) Blood Urea Nitrogen 50 mg/dL (7-18) H Creatinine 1.8 MG/DL (0.55-1.30) H Estimat Glomerular Filtration Rate 53.9 mL/min (>60) Glucose Level 283 MG/DL (74-106) H Calcium Level 9.3 MG/DL (8.5-10.1) Height (Feet): 5 Height (Inches): 7.00 Weight (Pounds): 120 Lashawn Mason N.P. Jul 03, 2017 15:31
--- NOTE | 2017-07-03 15:44 | Pulmonology Progress Note ---
Assessment/Plan Assessment/Plan IMPRESSION: 1. Respiratory failure; now extubated 2. Cannabis usage. 3. Diabetic ketoacidosis. 4. Troponin leak. 5. Tachycardia. 6. Anoxic brain injury DISCUSSION: Continue present management and care. now extubated Poor prognosis Remains on NRBM ABG adequate Subjective Interval Events: None Constitutional: Reports: no symptoms HEENT: Repors: no symptoms Respiratory: Reports: no symptoms Cardiovascular: Reports: no symptoms Gastrointestinal/Abdominal: Reports: no symptoms Allergies: Coded Allergies: No Known Allergies (Unverified , 06/15/17) Objective Last 24 Hour Vital Signs Date Time Temp Pulse Resp B/P (MAP) Pulse Ox O2 Delivery O2 Flow Rate FiO2 07/03/17 12:00 97.5 75 18 156/92 100 Non-Rebreather 15.0 100 07/03/17 11:36 74 07/03/17 08:00 98.1 68 22 157/101 100 Non-Rebreather 15.0 100 07/03/17 08:00 68 07/03/17 07:20 97 Non-Rebreather 15.0 100 07/03/17 07:20 Non-Rebreather 15.0 100 07/03/17 04:00 86 07/03/17 04:00 98.3 84 20 153/92 100 Non-Rebreather 15.0 100 07/03/17 00:00 94 07/03/17 00:00 98.2 94 22 119/46 96 Non-Rebreather 15.0 100 07/02/17 20:00 98.7 100 30 150/95 97 Non-Rebreather 15.0 100 07/02/17 20:00 99 07/02/17 19:10 Non-Rebreather 15.0 100 07/02/17 19:10 97 Non-Rebreather 15.0 100 07/02/17 16:00 88 07/02/17 16:00 97.3 85 18 155/93 96 Non-Rebreather 100 Intake and Output 07/02/17 07/03/17 19:00 07:00 Intake Total 1370.0 ml 1706.25 ml Output Total 750 ml 700 ml Balance 620.0 ml 1006.25 ml IV Total 870.0 ml 806.25 ml Tube Feeding 500 ml 600 ml Other 300 ml Output Urine Total 600 ml 700 ml Stool Total 150 ml General Appearance: no acute distress HEENT: normocephalic Respiratory/Chest: chest wall non-tender, lungs clear Cardiovascular: normal peripheral pulses, normal rate Abdomen: normal bowel sounds, soft, non tender Microbiology Date/Time Source Procedure Growth Status 06/30/17 15:52 Blood Blood Culture - Preliminary NO GROWTH AFTER 48 HOURS Resulted 06/30/17 15:45 Blood Blood Culture - Preliminary NO GROWTH AFTER 48 HOURS Resulted 07/01/17 00:30 Sputum Expectorated Gram Stain - Final Resulted 07/01/17 00:30 Sputum Culture - Preliminary Gram Negative Bacillus 1 Resulted Laboratory Tests 07/03/17 03:50: White Blood Count 13.3H, Red Blood Count 3.03L, Hemoglobin 9.6L, Hematocrit 30.7L, Mean Corpuscular Volume 101H, Mean Corpuscular Hemoglobin 31.8H, Mean Corpuscular Hemoglobin Concent 31.4L, Red Cell Distribution Width 12.0, Platelet Count 295, Mean Platelet Volume 6.6, Neutrophils (%) (Auto) 78.1H, Lymphocytes (%) (Auto) 6.8L, Monocytes (%) (Auto) 11.9H, Eosinophils (%) (Auto) 2.5, Basophils (%) (Auto) 0.8, Sodium Level 157H, Potassium Level 3.5, Chloride Level 117H, Carbon Dioxide Level 31, Anion Gap 9, Blood Urea Nitrogen 50H, Creatinine 1.8H, Estimat Glomerular Filtration Rate 53.9, Glucose Level 283H, Calcium Level 9.3 Current Medications Medications (Trade) Dose Ordered Sig/Conrado Route PRN Reason Start Time Stop Time Status Last Admin Dose Admin Acetaminophen (Tylenol) 500 mg Q6HR PRN NG Mild Pain/Temp > 100.5 07/01/17 02:45 07/31/17 02:44 Ceftaroline Fosamil 400 mg/ Sodium Chloride 55 ml @ 55 mls/hr Q12HR@0100,1300 IV 07/03/17 13:00 07/10/17 12:59 07/03/17 14:27 Dextrose (Dextrose 50%) STAT PRN IV Hypoglycemia 07/01/17 22:30 07/29/17 22:29 Dextrose/ Electrolytes 1,000 ml @ 75 mls/hr [id number] IV 07/03/17 16:30 08/02/17 16:29 Insulin Aspart (NovoLOG) Q6HR SUBQ 07/01/17 00:00 07/30/17 11:59 07/03/17 12:45 Insulin Detemir (Levemir) 15 units Q12HR SUBQ 07/01/17 11:00 07/31/17 10:59 07/03/17 09:26 Piperacillin Sod/ Tazobactam Sod 3.375 gm/Dextrose 110 ml @ 27.5 mls/hr Q8HR IVPB 07/01/17 14:00 07/08/17 13:59 07/03/17 14:27 Paulo Floyd MD Jul 03, 2017 15:44
[2017-07-03 16:00] VITALS: BP 147/94
--- NOTE | 2017-07-03 16:03 | Cardiac Electrophysiology PN ---
Assessment/Plan Assessment/Plan 1. Troponin leak. Levels are flat and due to renal failure with creatinine of 3.5. Echocardiogram EF60% 2. Tachycardia due to diabetic ketoacidosis and sepsis. 3. Respiratory failure on Vent. S/P Terminal extubation. Full code again. 4. Pneumonia on abx per Dr. Cummings 5. Pancreatitis. 6. ARF 7. Marijuana use. 8. Suspect diffuse cerebral anoxia and edema with decorticate rigidity per Dr Cano. 9. Alcohol withdrawal. 10. Azotemia and hypernatremia. On 06/12 NS 11. Full code. 12. Dysphagia. NG tube is in. May need PEG DW RN Subjective Subjective On MARIE, comatose on iv Abx with NG feeding ongoing. Objective Last 24 Hour Vital Signs Date Time Temp Pulse Resp B/P (MAP) Pulse Ox O2 Delivery O2 Flow Rate FiO2 07/03/17 12:00 97.5 75 18 156/92 100 Non-Rebreather 15.0 100 07/03/17 11:36 74 07/03/17 08:00 98.1 68 22 157/101 100 Non-Rebreather 15.0 100 07/03/17 08:00 68 07/03/17 07:20 97 Non-Rebreather 15.0 100 07/03/17 07:20 Non-Rebreather 15.0 100 07/03/17 04:00 86 07/03/17 04:00 98.3 84 20 153/92 100 Non-Rebreather 15.0 100 07/03/17 00:00 94 07/03/17 00:00 98.2 94 22 119/46 96 Non-Rebreather 15.0 100 07/02/17 20:00 98.7 100 30 150/95 97 Non-Rebreather 15.0 100 07/02/17 20:00 99 07/02/17 19:10 Non-Rebreather 15.0 100 07/02/17 19:10 97 Non-Rebreather 15.0 100 07/02/17 16:00 88 07/02/17 16:00 97.3 85 18 155/93 96 Non-Rebreather 100 Intake and Output 07/02/17 07/03/17 19:00 07:00 Intake Total 1370.0 ml 1706.25 ml Output Total 750 ml 700 ml Balance 620.0 ml 1006.25 ml IV Total 870.0 ml 806.25 ml Tube Feeding 500 ml 600 ml Other 300 ml Output Urine Total 600 ml 700 ml Stool Total 150 ml Laboratory Tests Test 07/03/17 03:50 White Blood Count 13.3 K/UL (4.8-10.8) H Red Blood Count 3.03 M/UL (4.70-6.10) L Hemoglobin 9.6 G/DL (14.2-18.0) L Hematocrit 30.7 % (42.0-52.0) L Mean Corpuscular Volume 101 FL (80-99) H Mean Corpuscular Hemoglobin 31.8 PG (27.0-31.0) H Mean Corpuscular Hemoglobin Concent 31.4 G/DL (32.0-36.0) L Red Cell Distribution Width 12.0 % (11.6-14.8) Platelet Count 295 K/UL (150-450) Mean Platelet Volume 6.6 FL (6.5-10.1) Neutrophils (%) (Auto) 78.1 % (45.0-75.0) H Lymphocytes (%) (Auto) 6.8 % (20.0-45.0) L Monocytes (%) (Auto) 11.9 % (1.0-10.0) H Eosinophils (%) (Auto) 2.5 % (0.0-3.0) Basophils (%) (Auto) 0.8 % (0.0-2.0) Sodium Level 157 MMOL/L (136-145) H Potassium Level 3.5 MMOL/L (3.5-5.1) Chloride Level 117 MMOL/L (98-107) H Carbon Dioxide Level 31 MMOL/L (21-32) Anion Gap 9 mmol/L (5-15) Blood Urea Nitrogen 50 mg/dL (7-18) H Creatinine 1.8 MG/DL (0.55-1.30) H Estimat Glomerular Filtration Rate 53.9 mL/min (>60) Glucose Level 283 MG/DL (74-106) H Calcium Level 9.3 MG/DL (8.5-10.1) Microbiology Date/Time Source Procedure Growth Status 06/30/17 15:52 Blood Blood Culture - Preliminary NO GROWTH AFTER 48 HOURS Resulted 07/01/17 00:30 Sputum Expectorated Gram Stain - Final Resulted 07/01/17 00:30 Sputum Culture - Preliminary Gram Negative Bacillus 1 Resulted Objective HEAD AND NECK: No JVD. Face Mask on. NG tube in. LUNGS: Clear. CARDIOVASCULAR: Regular S1 and S2 with no gallop or murmur. ABDOMEN: Soft and nontender. EXTREMITIES: No pitting edema. ALBERT ROWAN Jul 03, 2017 16:03
--- NOTE | 2017-07-03 17:11 | Infectious Diseases Prog Note ---
Assessment/Plan Problems: (1) Pneumonia Assessment & Plan: with gram negative rods, and possible aspiration due to altered mental status , await sputum culture , continue zosyn and ceftaroline empiric coverage , monitor CXR (2) Sepsis Assessment & Plan: due to the above, repeated blood culture is negative so far , continue wide spectrum antibiotics (3) Pancreatitis Assessment & Plan: monitor lipase, GI is following, restarted on tube feeding (4) Cardiopulmonary arrest Assessment & Plan: was extubated from mechanical ventilation , as per family request and made DNR and started on morphin drip, but family changed his code status today to full code , he is on tele monitor , cardiology is following (5) Anoxic cerebral edema Assessment & Plan: with no improvement, has poor prognosis , no tracheostomy , or PEG tube placement as per family , now full code as per family request , but postural and spastic and unresponsive . Subjective ROS Limited/Unobtainable: Yes Allergies: Coded Allergies: No Known Allergies (Unverified , 06/15/17) Subjective he is still unresponsive and tachypneic , on high flow oxygen via mask, in MARIE , tachycardic , postural and spastic in the lower extremities , dosen't follow commands , afebrile . Objective Vital Signs Last 24 Hour Vital Signs Date Time Temp Pulse Resp B/P (MAP) Pulse Ox O2 Delivery O2 Flow Rate FiO2 07/03/17 12:00 97.5 75 18 156/92 100 Non-Rebreather 15.0 100 07/03/17 11:36 74 07/03/17 08:00 98.1 68 22 157/101 100 Non-Rebreather 15.0 100 07/03/17 08:00 68 07/03/17 07:20 97 Non-Rebreather 15.0 100 07/03/17 07:20 Non-Rebreather 15.0 100 07/03/17 04:00 86 07/03/17 04:00 98.3 84 20 153/92 100 Non-Rebreather 15.0 100 07/03/17 00:00 94 07/03/17 00:00 98.2 94 22 119/46 96 Non-Rebreather 15.0 100 07/02/17 20:00 98.7 100 30 150/95 97 Non-Rebreather 15.0 100 07/02/17 20:00 99 07/02/17 19:10 Non-Rebreather 15.0 100 07/02/17 19:10 97 Non-Rebreather 15.0 100 Height (Feet): 5 Height (Inches): 7.00 Weight (Pounds): 120 General Appearance: WD/WN, no acute distress HEENT: normocephalic, atraumatic, anicteric, mucous membranes moist Respiratory/Chest: respiratory distress, decreased breath sounds, crackles/ rales Cardiovascular: normal peripheral pulses, normal rate, no gallop/murmur, no JVD , tachycardia Abdomen: normal bowel sounds, soft, non tender, no organomegaly, non distended , no mass Extremities: no cyanosis, no clubbing Skin: no rash, no lesions, no ulcers Neurologic/Psychiatric: unresponsiveness Musculoskeletal: atrophy Microbiology Date/Time Source Procedure Growth Status 07/01/17 00:30 Sputum Expectorated Gram Stain - Final Resulted 07/01/17 00:30 Sputum Culture - Preliminary Gram Negative Bacillus 1 Resulted Laboratory Tests Test 07/03/17 03:50 White Blood Count 13.3 K/UL (4.8-10.8) H Red Blood Count 3.03 M/UL (4.70-6.10) L Hemoglobin 9.6 G/DL (14.2-18.0) L Hematocrit 30.7 % (42.0-52.0) L Mean Corpuscular Volume 101 FL (80-99) H Mean Corpuscular Hemoglobin 31.8 PG (27.0-31.0) H Mean Corpuscular Hemoglobin Concent 31.4 G/DL (32.0-36.0) L Red Cell Distribution Width 12.0 % (11.6-14.8) Platelet Count 295 K/UL (150-450) Mean Platelet Volume 6.6 FL (6.5-10.1) Neutrophils (%) (Auto) 78.1 % (45.0-75.0) H Lymphocytes (%) (Auto) 6.8 % (20.0-45.0) L Monocytes (%) (Auto) 11.9 % (1.0-10.0) H Eosinophils (%) (Auto) 2.5 % (0.0-3.0) Basophils (%) (Auto) 0.8 % (0.0-2.0) Sodium Level 157 MMOL/L (136-145) H Potassium Level 3.5 MMOL/L (3.5-5.1) Chloride Level 117 MMOL/L (98-107) H Carbon Dioxide Level 31 MMOL/L (21-32) Anion Gap 9 mmol/L (5-15) Blood Urea Nitrogen 50 mg/dL (7-18) H Creatinine 1.8 MG/DL (0.55-1.30) H Estimat Glomerular Filtration Rate 53.9 mL/min (>60) Glucose Level 283 MG/DL (74-106) H Calcium Level 9.3 MG/DL (8.5-10.1) Current Medications Medications (Trade) Dose Ordered Sig/Conrado Route PRN Reason Start Time Stop Time Status Last Admin Dose Admin Acetaminophen (Tylenol) 500 mg Q6HR PRN NG Mild Pain/Temp > 100.5 07/01/17 02:45 07/31/17 02:44 Ceftaroline Fosamil 400 mg/ Sodium Chloride 55 ml @ 55 mls/hr Q12HR@0100,1300 IV 07/03/17 13:00 07/10/17 12:59 07/03/17 14:27 Dextrose (Dextrose 50%) STAT PRN IV Hypoglycemia 07/01/17 22:30 07/29/17 22:29 Dextrose/ Electrolytes 1,000 ml @ 75 mls/hr [id number] IV 07/03/17 16:30 08/02/17 16:29 Insulin Aspart (NovoLOG) Q6HR SUBQ 07/01/17 00:00 07/30/17 11:59 07/03/17 12:45 Insulin Detemir (Levemir) 15 units Q12HR SUBQ 07/01/17 11:00 07/31/17 10:59 07/03/17 09:26 Piperacillin Sod/ Tazobactam Sod 3.375 gm/Dextrose 110 ml @ 27.5 mls/hr Q8HR IVPB 07/01/17 14:00 07/08/17 13:59 07/03/17 14:27 Saad Cummings M.D. Jul 03, 2017 17:11
[2017-07-03] MEDS: D5W w/KCl 20mEq 1,000 ML IV SCH (17:16)
--- NOTE | 2017-07-03 19:06 | Nephrology Progress Note ---
Assessment/Plan Problem List: (1) DKA (diabetic ketoacidosis) Assessment: resolved. (2) Elevated troponin (3) Pancreatitis Assessment: resolved. (4) Hyponatremia Assessment: corrected (5) Acidosis (6) Respiratory distress Assessment: now intubated (7) Fever (8) Pneumonia Assessment: aspiration? (9) Sepsis (10) Alcohol withdrawal (11) Metabolic acidosis (12) Cardiopulmonary arrest Assessment: due to DKA. Plan Comfort measures dc'd. Restart IVF. Restart NGT feeding. Abx resumed per ID. Repeat Ct head. Repeat EEG. Check ABG. Patient's mother wishes patient to be intubated if necessary. d/w Dr. Matson. Discuss with family regarding code status again. Discuss PEG. and d/c planning. Subjective Subjective Remains on NRB mask. Still unresponsive. Objective Objective Last 24 Hour Vital Signs Date Time Temp Pulse Resp B/P (MAP) Pulse Ox O2 Delivery O2 Flow Rate FiO2 07/03/17 16:00 99.5 90 22 147/94 100 Non-Rebreather 15.0 100 07/03/17 16:00 89 07/03/17 12:00 97.5 75 18 156/92 100 Non-Rebreather 15.0 100 07/03/17 11:36 74 07/03/17 08:00 98.1 68 22 157/101 100 Non-Rebreather 15.0 100 07/03/17 08:00 68 07/03/17 07:20 97 Non-Rebreather 15.0 100 07/03/17 07:20 Non-Rebreather 15.0 100 07/03/17 04:00 86 07/03/17 04:00 98.3 84 20 153/92 100 Non-Rebreather 15.0 100 07/03/17 00:00 94 07/03/17 00:00 98.2 94 22 119/46 96 Non-Rebreather 15.0 100 07/02/17 20:00 98.7 100 30 150/95 97 Non-Rebreather 15.0 100 07/02/17 20:00 99 07/02/17 19:10 Non-Rebreather 15.0 100 07/02/17 19:10 97 Non-Rebreather 15.0 100 Intake and Output 07/02/17 07/03/17 19:00 07:00 Intake Total 1370.0 ml 1706.25 ml Output Total 750 ml 700 ml Balance 620.0 ml 1006.25 ml IV Total 870.0 ml 806.25 ml Tube Feeding 500 ml 600 ml Other 300 ml Output Urine Total 600 ml 700 ml Stool Total 150 ml Laboratory Tests 07/03/17 03:50: White Blood Count 13.3H, Red Blood Count 3.03L, Hemoglobin 9.6L, Hematocrit 30.7L, Mean Corpuscular Volume 101H, Mean Corpuscular Hemoglobin 31.8H, Mean Corpuscular Hemoglobin Concent 31.4L, Red Cell Distribution Width 12.0, Platelet Count 295, Mean Platelet Volume 6.6, Neutrophils (%) (Auto) 78.1H, Lymphocytes (%) (Auto) 6.8L, Monocytes (%) (Auto) 11.9H, Eosinophils (%) (Auto) 2.5, Basophils (%) (Auto) 0.8, Sodium Level 157H, Potassium Level 3.5, Chloride Level 117H, Carbon Dioxide Level 31, Anion Gap 9, Blood Urea Nitrogen 50H, Creatinine 1.8H, Estimat Glomerular Filtration Rate 53.9, Glucose Level 283H, Calcium Level 9.3 Height (Feet): 5 Height (Inches): 7.00 Weight (Pounds): 120 General Appearance: mild distress Cardiovascular: normal rate, regular rhythm Respiratory/Chest: decreased breath sounds Abdomen: non tender, soft Extremities: non-pitting Neurologic: unresponsive SOFIA HAYES Jul 03, 2017 19:06
[2017-07-03 20:00] VITALS: BP 144/92
[2017-07-04] VITALS: BP 149/96
[2017-07-04] MEDS: Ceftaroline 400 MG in NS 55 ML IV SCH (00:07)
[2017-07-04 04:00] VITALS: BP 150/90
[2017-07-04 05:20] LABS: BASOPHILS % (AUTO) 0.9 % (0.0-2.0); EOSINOPHILS % (AUTO) 3.3 % (0.0-3.0); HEMATOCRIT 30.5 % (42.0-52.0); HEMOGLOBIN 9.5 G/DL (14.2-18.0); LYMPHOCYTES % (AUTO) 6.5 % (20.0-45.0); MEAN CORPUSCULAR VOLUME 101 FL (80-99); NEUTROPHILS % (AUTO) 78.3 % (45.0-75.0); PLATELET COUNT 252 K/UL (150-450); RED BLOOD COUNT 3.02 M/UL (4.70-6.10); RED CELL DISTRIBUTION WIDTH 11.9 % (11.6-14.8); WHITE BLOOD COUNT 10.9 K/UL (4.8-10.8)
[2017-07-04] MEDS: Piperacillin/Tazobactam 3.375 GM in D5W 110 ML IVPB SCH (05:25)
[2017-07-04] MEDS: D5W w/KCl 20mEq 1,000 ML IV SCH (05:25)
[2017-07-04] MEDS: NovoLOG Insulin Flexpen SUBQ SCH ×3 (05:27→17:34)
[2017-07-04 05:37] LABS: ANION GAP 8 mmol/L (5-15); BLOOD UREA NITROGEN 46 mg/dL (7-18); CALCIUM 9.4 MG/DL (8.5-10.1); CARBON DIOXIDE 33 MMOL/L (21-32); CHLORIDE 118 MMOL/L (98-107); CREATININE 1.8 MG/DL (0.55-1.30); POTASSIUM 3.5 MMOL/L (3.5-5.1); SODIUM 159 MMOL/L (136-145)
--- NOTE | 2017-07-04 07:47 | Pulmonology Progress Note ---
Assessment/Plan Assessment/Plan IMPRESSION: 1. Respiratory failure; extubated 2. Cannabis usage. 3. Diabetic ketoacidosis. 4. Troponin leak. 5. Tachycardia. 6. Anoxic brain injury DISCUSSION: Continue present management and care. now extubated Poor prognosis Remains on NRBM ABG adequate Will see prn only Please call if needed Subjective Interval Events: No new events HEENT: Repors: no symptoms Respiratory: Reports: no symptoms Cardiovascular: Reports: no symptoms Gastrointestinal/Abdominal: Reports: no symptoms Genitourinary: Reports: no symptoms Allergies: Coded Allergies: No Known Allergies (Unverified , 06/15/17) Objective Last 24 Hour Vital Signs Date Time Temp Pulse Resp B/P (MAP) Pulse Ox O2 Delivery O2 Flow Rate FiO2 07/04/17 04:00 74 07/04/17 04:00 98.0 95 24 150/90 99 Non-Rebreather 15.0 99 07/04/17 00:00 88 07/04/17 00:00 98.9 95 32 149/96 99 Non-Rebreather 15.0 100 07/03/17 20:00 90 07/03/17 20:00 98.2 91 32 144/92 95 Non-Rebreather 15.0 100 07/03/17 19:00 Non-Rebreather 15.0 100 07/03/17 19:00 95 Non-Rebreather 15.0 100 07/03/17 16:00 99.5 90 22 147/94 100 Non-Rebreather 15.0 100 07/03/17 16:00 89 07/03/17 12:00 97.5 75 18 156/92 100 Non-Rebreather 15.0 100 07/03/17 11:36 74 07/03/17 08:00 98.1 68 22 157/101 100 Non-Rebreather 15.0 100 07/03/17 08:00 68 Intake and Output 07/03/17 07/04/17 19:00 07:00 Intake Total 1867.5 ml 1455.75 ml Output Total 1000 ml 800 ml Balance 867.5 ml 655.75 ml Free Water 400 ml 100 ml IV Total 737.5 ml 1105.75 ml Tube Feeding 600 ml 250 ml Other 130 ml Output Urine Total 1000 ml 700 ml Stool Total 100 ml General Appearance: no acute distress HEENT: normocephalic Respiratory/Chest: chest wall non-tender, lungs clear Cardiovascular: normal peripheral pulses, normal rate Laboratory Tests 07/04/17 03:50: White Blood Count 10.9H, Red Blood Count 3.02L, Hemoglobin 9.5L, Hematocrit 30.5L, Mean Corpuscular Volume 101H, Mean Corpuscular Hemoglobin 31.5H, Mean Corpuscular Hemoglobin Concent 31.2L, Red Cell Distribution Width 11.9, Platelet Count 252, Mean Platelet Volume 6.5, Neutrophils (%) (Auto) 78.3H, Lymphocytes (%) (Auto) 6.5L, Monocytes (%) (Auto) 11.0H, Eosinophils (%) (Auto) 3.3H, Basophils (%) (Auto) 0.9, Prothrombin Time 10.6, Prothromb Time International Ratio 1.0, Activated Partial Thromboplast Time 27, Sodium Level 159H, Potassium Level 3.5, Chloride Level 118H, Carbon Dioxide Level 33H, Anion Gap 8, Blood Urea Nitrogen 46H, Creatinine 1.8H, Estimat Glomerular Filtration Rate 53.9, Glucose Level 210H, Calcium Level 9.4 Current Medications Medications (Trade) Dose Ordered Sig/Conrado Route PRN Reason Start Time Stop Time Status Last Admin Dose Admin Acetaminophen (Tylenol) 500 mg Q6HR PRN NG Mild Pain/Temp > 100.5 07/01/17 02:45 07/31/17 02:44 Ceftaroline Fosamil 400 mg/ Sodium Chloride 55 ml @ 55 mls/hr Q12HR@0100,1300 IV 07/03/17 13:00 07/10/17 12:59 07/04/17 00:07 Dextrose (Dextrose 50%) STAT PRN IV Hypoglycemia 07/01/17 22:30 07/29/17 22:29 Dextrose/ Electrolytes 1,000 ml @ 75 mls/hr [id number] IV 07/03/17 16:30 08/02/17 16:29 07/04/17 05:25 Insulin Aspart (NovoLOG) Q6HR SUBQ 07/01/17 00:00 07/30/17 11:59 07/04/17 05:27 Insulin Detemir (Levemir) 15 units Q12HR SUBQ 07/01/17 11:00 07/31/17 10:59 07/03/17 20:57 Piperacillin Sod/ Tazobactam Sod 3.375 gm/Dextrose 110 ml @ 27.5 mls/hr Q8HR IVPB 07/01/17 14:00 07/08/17 13:59 07/04/17 05:25 Paulo Floyd MD Jul 04, 2017 07:47
[2017-07-04 08:00] VITALS: BP 161/96
[2017-07-04] MEDS: Levemir Flexpen SUBQ SCH ×2 (09:06→22:27)
[2017-07-04] MEDS: cefTAZidime 1gm/D5W 55ml IV SCH ×4 (11:38→21:24)
--- NOTE | 2017-07-04 11:54 | Cardiac Electrophysiology PN ---
Assessment/Plan Assessment/Plan 1. Troponin leak. Levels are flat and due to renal failure with creatinine of 3.5. Echocardiogram EF60% 2. Tachycardia due to diabetic ketoacidosis and sepsis. 3. Respiratory failure on Vent. S/P Terminal extubation. Full code again. 4. Pneumonia on abx per Dr. Cummings 5. Pancreatitis. 6. ARF 7. Marijuana use. 8. Suspect diffuse cerebral anoxia and edema with decorticate rigidity per Dr Cano. 9. Alcohol withdrawal. 10. Azotemia and hypernatremia. Creatinine 1.8 now. 11. Full code. 12. Dysphagia. NG tube is in. PEG when more stable respiratory gibbs. REFUGIO RN and Dr Trisha SINCLAIR Subjective Subjective On MARIE, comatose on iv Abx with NG feeding ongoing.PEG was cancelled by anesthesia as patient was not stable respiratory gibbs. Objective Last 24 Hour Vital Signs Date Time Temp Pulse Resp B/P (MAP) Pulse Ox O2 Delivery O2 Flow Rate FiO2 07/04/17 08:00 94 07/04/17 08:00 98.2 93 18 161/96 100 Non-Rebreather 15.0 100 07/04/17 07:00 Non-Rebreather 15.0 100 07/04/17 07:00 97 Non-Rebreather 15.0 100 07/04/17 04:00 74 07/04/17 04:00 98.0 95 24 150/90 99 Non-Rebreather 15.0 99 07/04/17 00:00 88 07/04/17 00:00 98.9 95 32 149/96 99 Non-Rebreather 15.0 100 07/03/17 20:00 90 07/03/17 20:00 98.2 91 32 144/92 95 Non-Rebreather 15.0 100 07/03/17 19:00 Non-Rebreather 15.0 100 07/03/17 19:00 95 Non-Rebreather 15.0 100 07/03/17 16:00 99.5 90 22 147/94 100 Non-Rebreather 15.0 100 07/03/17 16:00 89 07/03/17 12:00 97.5 75 18 156/92 100 Non-Rebreather 15.0 100 Intake and Output 07/03/17 07/04/17 19:00 07:00 Intake Total 1867.5 ml 1455.75 ml Output Total 1000 ml 800 ml Balance 867.5 ml 655.75 ml Free Water 400 ml 100 ml IV Total 737.5 ml 1105.75 ml Tube Feeding 600 ml 250 ml Other 130 ml Output Urine Total 1000 ml 700 ml Stool Total 100 ml Laboratory Tests Test 07/04/17 03:50 White Blood Count 10.9 K/UL (4.8-10.8) H Red Blood Count 3.02 M/UL (4.70-6.10) L Hemoglobin 9.5 G/DL (14.2-18.0) L Hematocrit 30.5 % (42.0-52.0) L Mean Corpuscular Volume 101 FL (80-99) H Mean Corpuscular Hemoglobin 31.5 PG (27.0-31.0) H Mean Corpuscular Hemoglobin Concent 31.2 G/DL (32.0-36.0) L Red Cell Distribution Width 11.9 % (11.6-14.8) Platelet Count 252 K/UL (150-450) Mean Platelet Volume 6.5 FL (6.5-10.1) Neutrophils (%) (Auto) 78.3 % (45.0-75.0) H Lymphocytes (%) (Auto) 6.5 % (20.0-45.0) L Monocytes (%) (Auto) 11.0 % (1.0-10.0) H Eosinophils (%) (Auto) 3.3 % (0.0-3.0) H Basophils (%) (Auto) 0.9 % (0.0-2.0) Prothrombin Time 10.6 SEC (9.30-11.50) Prothromb Time International Ratio 1.0 (0.9-1.1) Activated Partial Thromboplast Time 27 SEC (23-33) Sodium Level 159 MMOL/L (136-145) H Potassium Level 3.5 MMOL/L (3.5-5.1) Chloride Level 118 MMOL/L (98-107) H Carbon Dioxide Level 33 MMOL/L (21-32) H Anion Gap 8 mmol/L (5-15) Blood Urea Nitrogen 46 mg/dL (7-18) H Creatinine 1.8 MG/DL (0.55-1.30) H Estimat Glomerular Filtration Rate 53.9 mL/min (>60) Glucose Level 210 MG/DL (74-106) H Calcium Level 9.4 MG/DL (8.5-10.1) Objective HEAD AND NECK: No JVD. Face Mask on. NG tube in. LUNGS: Clear. CARDIOVASCULAR: Regular S1 and S2 with no gallop or murmur. ABDOMEN: Soft and nontender. EXTREMITIES: No pitting edema. ALBERT ROWAN Jul 04, 2017 11:54
[2017-07-04 12:00] VITALS: BP 133/86
--- NOTE | 2017-07-04 13:11 | GI Progress Note ---
Assessment/Plan Problems: (1) Shock liver ICD Codes: K72.00 - Acute and subacute hepatic failure without coma SNOMED: 023756828 (2) Anoxic cerebral edema ICD Codes: G93.6 - Cerebral edema; R09.02 - Hypoxemia SNOMED: 4121989, 022431497 (3) Transaminitis ICD Codes: R74.0 - Nonspecific elevation of levels of transaminase and lactic acid dehydrogenase [LDH] SNOMED: 307391297, 592924804 (4) Alcohol withdrawal ICD Codes: F10.239 - Alcohol dependence with withdrawal, unspecified SNOMED: 545198683 (5) Pancreatitis ICD Codes: K85.90 - Acute pancreatitis without necrosis or infection, unspecified SNOMED: 97821387 Status: unchanged Status Narrative Discussed with Dr. Rico. Assessment/Plan PEG on hold until respiratory status stabilizes >> mother has consented to placement cont NGTFs electrolyte correction fu labs Subjective Subjective limited Objective Last 24 Hour Vital Signs Date Time Temp Pulse Resp B/P (MAP) Pulse Ox O2 Delivery O2 Flow Rate FiO2 07/04/17 12:00 98.4 87 18 133/86 100 Non-Rebreather 15.0 100 07/04/17 08:00 94 07/04/17 08:00 98.2 93 18 161/96 100 Non-Rebreather 15.0 100 07/04/17 07:00 Non-Rebreather 15.0 100 07/04/17 07:00 97 Non-Rebreather 15.0 100 07/04/17 04:00 74 07/04/17 04:00 98.0 95 24 150/90 99 Non-Rebreather 15.0 99 07/04/17 00:00 88 07/04/17 00:00 98.9 95 32 149/96 99 Non-Rebreather 15.0 100 07/03/17 20:00 90 07/03/17 20:00 98.2 91 32 144/92 95 Non-Rebreather 15.0 100 07/03/17 19:00 Non-Rebreather 15.0 100 07/03/17 19:00 95 Non-Rebreather 15.0 100 07/03/17 16:00 99.5 90 22 147/94 100 Non-Rebreather 15.0 100 07/03/17 16:00 89 Intake and Output 07/03/17 07/04/17 19:00 07:00 Intake Total 1867.5 ml 1455.75 ml Output Total 1000 ml 800 ml Balance 867.5 ml 655.75 ml Free Water 400 ml 100 ml IV Total 737.5 ml 1105.75 ml Tube Feeding 600 ml 250 ml Other 130 ml Output Urine Total 1000 ml 700 ml Stool Total 100 ml Laboratory Tests Test 07/04/17 03:50 White Blood Count 10.9 K/UL (4.8-10.8) H Red Blood Count 3.02 M/UL (4.70-6.10) L Hemoglobin 9.5 G/DL (14.2-18.0) L Hematocrit 30.5 % (42.0-52.0) L Mean Corpuscular Volume 101 FL (80-99) H Mean Corpuscular Hemoglobin 31.5 PG (27.0-31.0) H Mean Corpuscular Hemoglobin Concent 31.2 G/DL (32.0-36.0) L Red Cell Distribution Width 11.9 % (11.6-14.8) Platelet Count 252 K/UL (150-450) Mean Platelet Volume 6.5 FL (6.5-10.1) Neutrophils (%) (Auto) 78.3 % (45.0-75.0) H Lymphocytes (%) (Auto) 6.5 % (20.0-45.0) L Monocytes (%) (Auto) 11.0 % (1.0-10.0) H Eosinophils (%) (Auto) 3.3 % (0.0-3.0) H Basophils (%) (Auto) 0.9 % (0.0-2.0) Prothrombin Time 10.6 SEC (9.30-11.50) Prothromb Time International Ratio 1.0 (0.9-1.1) Activated Partial Thromboplast Time 27 SEC (23-33) Sodium Level 159 MMOL/L (136-145) H Potassium Level 3.5 MMOL/L (3.5-5.1) Chloride Level 118 MMOL/L (98-107) H Carbon Dioxide Level 33 MMOL/L (21-32) H Anion Gap 8 mmol/L (5-15) Blood Urea Nitrogen 46 mg/dL (7-18) H Creatinine 1.8 MG/DL (0.55-1.30) H Estimat Glomerular Filtration Rate 53.9 mL/min (>60) Glucose Level 210 MG/DL (74-106) H Calcium Level 9.4 MG/DL (8.5-10.1) Height (Feet): 5 Height (Inches): 6.00 Weight (Pounds): 124 General Appearance: lethargic Cardiovascular: normal rate Respiratory/Chest: other - non rebreather Abdominal Exam: soft Lashawn Mason N.P. Jul 04, 2017 13:11
--- NOTE | 2017-07-04 13:29 | Infectious Diseases Prog Note ---
Assessment/Plan Problems: (1) Pneumonia Assessment & Plan: due to Acinetobacter baumannii , on zosyn and ceftaroline empiric coverage , will switch to ceftazidime and treat for two weeks , monitor CXR (2) Sepsis Assessment & Plan: less likely with negative blood culture , on wide spectrum antibiotics (3) Pancreatitis Assessment & Plan: improved , monitor lipase, GI is following, restarted on tube feeding (4) Cardiopulmonary arrest Assessment & Plan: was extubated from mechanical ventilation , as per family request and made DNR and started on morphin drip, but family changed his code status to full code , he is on tele monitor , cardiology is following , may need tracheostomy and PEG placement . (5) Anoxic cerebral edema Assessment & Plan: with no improvement, has poor prognosis , no tracheostomy , or PEG tube placement as per family , now full code as per family request , but postural and spastic and unresponsive . Subjective ROS Limited/Unobtainable: Yes Allergies: Coded Allergies: No Known Allergies (Unverified , 06/15/17) Subjective he is still unresponsive and tachypneic , on high flow oxygen via mask, in MARIE , postural and spastic in the lower extremities , dosen't follow commands , afebrile . Objective Vital Signs Last 24 Hour Vital Signs Date Time Temp Pulse Resp B/P (MAP) Pulse Ox O2 Delivery O2 Flow Rate FiO2 07/04/17 12:00 87 07/04/17 12:00 98.4 87 18 133/86 100 Non-Rebreather 15.0 100 07/04/17 08:00 94 07/04/17 08:00 98.2 93 18 161/96 100 Non-Rebreather 15.0 100 07/04/17 07:00 Non-Rebreather 15.0 100 07/04/17 07:00 97 Non-Rebreather 15.0 100 07/04/17 04:00 74 07/04/17 04:00 98.0 95 24 150/90 99 Non-Rebreather 15.0 99 07/04/17 00:00 88 07/04/17 00:00 98.9 95 32 149/96 99 Non-Rebreather 15.0 100 07/03/17 20:00 90 07/03/17 20:00 98.2 91 32 144/92 95 Non-Rebreather 15.0 100 07/03/17 19:00 Non-Rebreather 15.0 100 07/03/17 19:00 95 Non-Rebreather 15.0 100 07/03/17 16:00 99.5 90 22 147/94 100 Non-Rebreather 15.0 100 07/03/17 16:00 89 Height (Feet): 5 Height (Inches): 6.00 Weight (Pounds): 124 General Appearance: WD/WN, no acute distress, other - spastic HEENT: normocephalic, atraumatic, anicteric, mucous membranes moist Respiratory/Chest: chest wall non-tender, no respiratory distress, no accessory muscle use, decreased breath sounds, crackles/rales Cardiovascular: normal peripheral pulses, normal rate, regular rhythm, no gallop/murmur, no JVD Abdomen: normal bowel sounds, soft, non tender, no organomegaly, non distended , no mass, no scars Extremities: no cyanosis, no clubbing Skin: no rash, no lesions Neurologic/Psychiatric: unresponsiveness Lymphatic: no neck adenopathy, no groin adenopathy Laboratory Tests Test 07/04/17 03:50 White Blood Count 10.9 K/UL (4.8-10.8) H Red Blood Count 3.02 M/UL (4.70-6.10) L Hemoglobin 9.5 G/DL (14.2-18.0) L Hematocrit 30.5 % (42.0-52.0) L Mean Corpuscular Volume 101 FL (80-99) H Mean Corpuscular Hemoglobin 31.5 PG (27.0-31.0) H Mean Corpuscular Hemoglobin Concent 31.2 G/DL (32.0-36.0) L Red Cell Distribution Width 11.9 % (11.6-14.8) Platelet Count 252 K/UL (150-450) Mean Platelet Volume 6.5 FL (6.5-10.1) Neutrophils (%) (Auto) 78.3 % (45.0-75.0) H Lymphocytes (%) (Auto) 6.5 % (20.0-45.0) L Monocytes (%) (Auto) 11.0 % (1.0-10.0) H Eosinophils (%) (Auto) 3.3 % (0.0-3.0) H Basophils (%) (Auto) 0.9 % (0.0-2.0) Prothrombin Time 10.6 SEC (9.30-11.50) Prothromb Time International Ratio 1.0 (0.9-1.1) Activated Partial Thromboplast Time 27 SEC (23-33) Sodium Level 159 MMOL/L (136-145) H Potassium Level 3.5 MMOL/L (3.5-5.1) Chloride Level 118 MMOL/L (98-107) H Carbon Dioxide Level 33 MMOL/L (21-32) H Anion Gap 8 mmol/L (5-15) Blood Urea Nitrogen 46 mg/dL (7-18) H Creatinine 1.8 MG/DL (0.55-1.30) H Estimat Glomerular Filtration Rate 53.9 mL/min (>60) Glucose Level 210 MG/DL (74-106) H Calcium Level 9.4 MG/DL (8.5-10.1) Current Medications Medications (Trade) Dose Ordered Sig/Conrado Route PRN Reason Start Time Stop Time Status Last Admin Dose Admin Acetaminophen (Tylenol) 500 mg Q6HR PRN NG Mild Pain/Temp > 100.5 07/01/17 02:45 07/31/17 02:44 Ceftazidime 1 gm/ Dextrose 55 ml @ 110 mls/hr Q8HR IV 07/04/17 12:00 07/11/17 11:59 07/04/17 11:38 Dextrose (Dextrose 50%) STAT PRN IV Hypoglycemia 07/01/17 22:30 07/29/17 22:29 Dextrose/ Electrolytes 1,000 ml @ 75 mls/hr [id number] IV 07/03/17 16:30 08/02/17 16:29 07/04/17 05:25 Insulin Aspart (NovoLOG) Q6HR SUBQ 07/01/17 00:00 07/30/17 11:59 07/04/17 11:39 Insulin Detemir (Levemir) 15 units Q12HR SUBQ 07/01/17 11:00 07/31/17 10:59 07/04/17 09:06 Saad Cummings M.D. Jul 04, 2017 13:29
[2017-07-04 16:00] VITALS: BP 146/87
--- NOTE | 2017-07-04 18:37 | Nephrology Progress Note ---
Assessment/Plan Problem List: (1) Hypernatremia (2) Hypokalemia Assessment: corrected (3) Fever (4) Acidosis (5) Respiratory distress (6) Pancreatitis (7) Elevated troponin (8) Alcohol withdrawal (9) Pneumonia (10) Sepsis (11) Cardiopulmonary arrest (12) Metabolic acidosis (13) DKA (diabetic ketoacidosis) Plan Continue current treatment plan Suspect diffuse cerebral anoxia and edema with decorticate rigidity per Dr Cano. Monitor lytes, correct prn Monitor neuro status, f/u with neurology rec Continue NG tube feeding and IVF Pending PEG placement Strict glycemic control Abx per ID Monitor intake and output Free water flush Continue carpenter Subjective ROS Limited/Unobtainable: Yes Subjective Seen in MARIE, on non rebreather mask,unresponsive, afebrile Objective Objective Last 24 Hour Vital Signs Date Time Temp Pulse Resp B/P (MAP) Pulse Ox O2 Delivery O2 Flow Rate FiO2 07/04/17 16:00 99.2 102 19 146/87 100 Non-Rebreather 15.0 100 07/04/17 12:00 87 07/04/17 12:00 98.4 87 18 133/86 100 Non-Rebreather 15.0 100 07/04/17 08:00 94 07/04/17 08:00 98.2 93 18 161/96 100 Non-Rebreather 15.0 100 07/04/17 07:00 Non-Rebreather 15.0 100 07/04/17 07:00 97 Non-Rebreather 15.0 100 07/04/17 04:00 74 07/04/17 04:00 98.0 95 24 150/90 99 Non-Rebreather 15.0 99 07/04/17 00:00 88 07/04/17 00:00 98.9 95 32 149/96 99 Non-Rebreather 15.0 100 07/03/17 20:00 90 07/03/17 20:00 98.2 91 32 144/92 95 Non-Rebreather 15.0 100 07/03/17 19:00 Non-Rebreather 15.0 100 07/03/17 19:00 95 Non-Rebreather 15.0 100 Intake and Output 07/03/17 07/04/17 19:00 07:00 Intake Total 1867.5 ml 1455.75 ml Output Total 1000 ml 800 ml Balance 867.5 ml 655.75 ml Free Water 400 ml 100 ml IV Total 737.5 ml 1105.75 ml Tube Feeding 600 ml 250 ml Other 130 ml Output Urine Total 1000 ml 700 ml Stool Total 100 ml Laboratory Tests 07/04/17 03:50: White Blood Count 10.9H, Red Blood Count 3.02L, Hemoglobin 9.5L, Hematocrit 30.5L, Mean Corpuscular Volume 101H, Mean Corpuscular Hemoglobin 31.5H, Mean Corpuscular Hemoglobin Concent 31.2L, Red Cell Distribution Width 11.9, Platelet Count 252, Mean Platelet Volume 6.5, Neutrophils (%) (Auto) 78.3H, Lymphocytes (%) (Auto) 6.5L, Monocytes (%) (Auto) 11.0H, Eosinophils (%) (Auto) 3.3H, Basophils (%) (Auto) 0.9, Prothrombin Time 10.6, Prothromb Time International Ratio 1.0, Activated Partial Thromboplast Time 27, Sodium Level 159H, Potassium Level 3.5, Chloride Level 118H, Carbon Dioxide Level 33H, Anion Gap 8, Blood Urea Nitrogen 46H, Creatinine 1.8H, Estimat Glomerular Filtration Rate 53.9, Glucose Level 210H, Calcium Level 9.4 Height (Feet): 5 Height (Inches): 6.00 Weight (Pounds): 124 General Appearance: no apparent distress EENT: normal ENT inspection Neck: stiff neck Cardiovascular: no JVD Respiratory/Chest: decreased breath sounds Abdomen: soft Genitourinary/Rectal: other - carpenter Neurologic: unresponsive Hannah Johnson N.P. Jul 04, 2017 18:36
[2017-07-04] MEDS: Acetaminophen 650mg/20.3ml NG PRN (18:47)
[2017-07-04 20:00] VITALS: BP 138/79
[2017-07-04] MEDS ORDERED: Levemir Flexpen SUBQ SCH (21:00)
[2017-07-04 21:11] LABS: ANION GAP 10 mmol/L (5-15); BLOOD UREA NITROGEN 52 mg/dL (7-18); CALCIUM 9.1 MG/DL (8.5-10.1); CARBON DIOXIDE 30 MMOL/L (21-32); CHLORIDE 114 MMOL/L (98-107); CREATININE 1.9 MG/DL (0.55-1.30); SODIUM 154 MMOL/L (136-145)
[2017-07-04] MEDS ORDERED: NovoLOG Insulin Flexpen SUBQ ONE (21:45)
[2017-07-05] VITALS: BP 146/82
[2017-07-05] MEDS: NovoLOG Insulin Flexpen SUBQ SCH ×5 (00:21→23:43)
[2017-07-05 04:00] VITALS: BP 134/69
[2017-07-05] MEDS: cefTAZidime 1gm/D5W 55ml IV SCH ×6 (05:06→21:43)
[2017-07-05 08:00] VITALS: BP 149/106
[2017-07-05] MEDS: Levemir Flexpen SUBQ SCH ×2 (09:03→21:00)
--- NOTE | 2017-07-05 09:27 | General Progress Note ---
Assessment/Plan Problem List: (1) DKA (diabetic ketoacidosis) ICD Codes: E13.10 - Other specified diabetes mellitus with ketoacidosis without coma SNOMED: 17044658, 764240746 Qualifiers: Qualified Codes: E10.11 - Type 1 diabetes mellitus with ketoacidosis with coma (2) Metabolic acidosis ICD Codes: E87.2 - Acidosis SNOMED: 37424070 (3) Cardiopulmonary arrest ICD Codes: I46.9 - Cardiac arrest, cause unspecified SNOMED: 105445835 Assessment/Plan Levemir adjusted to 25 units bid continue NISS TF is on Subjective ROS Limited/Unobtainable: Yes Allergies: Coded Allergies: No Known Allergies (Unverified , 06/15/17) Subjective events noted Objective Last 24 Hour Vital Signs Date Time Temp Pulse Resp B/P (MAP) Pulse Ox O2 Delivery O2 Flow Rate FiO2 07/05/17 08:00 98.2 98 18 149/106 99 Non-Rebreather 15.0 99 07/05/17 07:40 97 07/05/17 04:00 89 07/05/17 04:00 98.4 85 24 134/69 100 Non-Rebreather 15.0 100 07/05/17 00:00 118 07/05/17 00:00 98.8 114 30 146/82 100 Non-Rebreather 15.0 100 07/04/17 20:00 105 07/04/17 20:00 98.2 109 22 138/79 100 Non-Rebreather 15.0 100 07/04/17 19:17 98.4 07/04/17 19:17 98.4 07/04/17 16:00 99.2 102 19 146/87 100 Non-Rebreather 15.0 100 07/04/17 16:00 105 07/04/17 12:00 87 07/04/17 12:00 98.4 87 18 133/86 100 Non-Rebreather 15.0 100 Intake and Output 07/04/17 07/05/17 19:00 07:00 Intake Total 1754.250 ml 760 ml Output Total 1000 ml Balance 754.250 ml 760 ml Free Water 180 ml 300 ml IV Total 1024.250 ml 110 ml Tube Feeding 550 ml 350 ml Output Urine Total 1000 ml Laboratory Tests 07/04/17 20:35: Sodium Level 154H, Potassium Level 4.0, Chloride Level 114H, Carbon Dioxide Level 30, Anion Gap 10, Blood Urea Nitrogen 52H, Creatinine 1.9H, Estimat Glomerular Filtration Rate 50.7, Glucose Level 675#*H, Calcium Level 9.1 Height (Feet): 5 Height (Inches): 6.00 Weight (Pounds): 123 General Appearance: other Neck: normal alignment Cardiovascular: normal rate Respiratory/Chest: lungs clear Abdomen: normal bowel sounds Objective Current Medications Medications (Trade) Dose Ordered Sig/Conrado Route PRN Reason Start Time Stop Time Status Last Admin Dose Admin Acetaminophen (Tylenol) 500 mg Q6HR PRN NG Mild Pain/Temp > 100.5 07/01/17 02:45 07/31/17 02:44 07/04/17 18:47 Ceftazidime 1 gm/ Dextrose 55 ml @ 110 mls/hr Q8HR IV 07/04/17 12:00 07/11/17 11:59 07/05/17 05:06 Dextrose (Dextrose 50%) STAT PRN IV Hypoglycemia 07/01/17 22:30 07/29/17 22:29 Insulin Aspart (NovoLOG) per DR. Corrigan to h... Q6HR SUBQ 07/05/17 00:00 08/04/17 00:00 07/05/17 00:21 Insulin Detemir (Levemir) 25 units Q12HR SUBQ 07/04/17 21:00 08/03/17 20:59 07/05/17 09:03 Item Value Date Time Bedside Blood Glucose 161 mg/dl H 07/05/17 0903 Bedside Blood Glucose 150 mg/dl H 07/05/17 0506 Bedside Blood Glucose 317 mg/dl H 07/05/17 0021 Bedside Blood Glucose 675 mg/dl H 07/04/17 2227 Bedside Blood Glucose 484 mg/dl H 07/04/17 1800 Bedside Blood Glucose 337 mg/dl H 07/04/17 1200 Bedside Blood Glucose 274 mg/dl H 07/04/17 0906 JADIEL MARCANO Jul 05, 2017 09:27
--- NOTE | 2017-07-05 11:54 | GI Progress Note ---
Assessment/Plan Problems: (1) Shock liver ICD Codes: K72.00 - Acute and subacute hepatic failure without coma SNOMED: 969972158 (2) Anoxic cerebral edema ICD Codes: G93.6 - Cerebral edema; R09.02 - Hypoxemia SNOMED: 9573296, 517974203 (3) Transaminitis ICD Codes: R74.0 - Nonspecific elevation of levels of transaminase and lactic acid dehydrogenase [LDH] SNOMED: 681748648, 453551799 (4) Alcohol withdrawal ICD Codes: F10.239 - Alcohol dependence with withdrawal, unspecified SNOMED: 220894838 (5) Pancreatitis ICD Codes: K85.90 - Acute pancreatitis without necrosis or infection, unspecified SNOMED: 68904734 Status: progressing Status Narrative Discussed with Dr. Rico. Assessment/Plan will schedule PEG once respiratory status stable >> patient now on venturi, plans to ween today. - consent obtained. cont NGTFs electrolyte correction fu labs Subjective Subjective limited Objective Last 24 Hour Vital Signs Date Time Temp Pulse Resp B/P (MAP) Pulse Ox O2 Delivery O2 Flow Rate FiO2 07/05/17 09:56 Non-Rebreather 15.0 100 07/05/17 09:55 99 Non-Rebreather 15.0 100 07/05/17 08:00 98.2 98 18 149/106 99 Non-Rebreather 15.0 99 07/05/17 07:40 97 07/05/17 04:00 89 07/05/17 04:00 98.4 85 24 134/69 100 Non-Rebreather 15.0 100 07/05/17 00:00 118 07/05/17 00:00 98.8 114 30 146/82 100 Non-Rebreather 15.0 100 07/04/17 20:00 105 07/04/17 20:00 98.2 109 22 138/79 100 Non-Rebreather 15.0 100 07/04/17 19:17 98.4 07/04/17 19:17 98.4 07/04/17 16:00 99.2 102 19 146/87 100 Non-Rebreather 15.0 100 07/04/17 16:00 105 07/04/17 12:00 87 07/04/17 12:00 98.4 87 18 133/86 100 Non-Rebreather 15.0 100 Intake and Output 07/04/17 07/05/17 19:00 07:00 Intake Total 1754.250 ml 760 ml Output Total 1000 ml Balance 754.250 ml 760 ml Free Water 180 ml 300 ml IV Total 1024.250 ml 110 ml Tube Feeding 550 ml 350 ml Output Urine Total 1000 ml Laboratory Tests Test 07/04/17 20:35 Sodium Level 154 MMOL/L (136-145) H Potassium Level 4.0 MMOL/L (3.5-5.1) Chloride Level 114 MMOL/L (98-107) H Carbon Dioxide Level 30 MMOL/L (21-32) Anion Gap 10 mmol/L (5-15) Blood Urea Nitrogen 52 mg/dL (7-18) H Creatinine 1.9 MG/DL (0.55-1.30) H Estimat Glomerular Filtration Rate 50.7 mL/min (>60) Glucose Level 675 MG/DL (74-106) #*H Calcium Level 9.1 MG/DL (8.5-10.1) Height (Feet): 5 Height (Inches): 6.00 Weight (Pounds): 123 General Appearance: lethargic Cardiovascular: regular rhythm Respiratory/Chest: other - on venturi mask Abdominal Exam: other - NGT Lashawn Mason N.P. Jul 05, 2017 11:54
[2017-07-05 12:00] VITALS: BP 146/90
--- NOTE | 2017-07-05 14:44 | Cardiac Electrophysiology PN ---
Assessment/Plan Assessment/Plan 1. Troponin leak. Levels are flat and due to renal failure with creatinine of 3.5. Echocardiogram EF60% 2. Tachycardia due to diabetic ketoacidosis and sepsis. 3. Respiratory failure . S/P Terminal extubation. Full code again. Now on Nasal Cannula. 4. Pneumonia on abx per Dr. Cummings 5. Pancreatitis. 6. ARF 7. Marijuana use. 8. Suspect diffuse cerebral anoxia and edema with decorticate rigidity per Dr Cano. 9. Alcohol withdrawal. 10. Azotemia and hypernatremia. Creatinine 1.8 11. Full code. 12. Dysphagia. NG tube is in. PEG when more stable respiratory gibbs. DW RN Subjective Subjective On MAREI, comatose on iv Abx with NG feeding ongoing. Having ABG done after FaceMask changed to nasal cannula. Objective Last 24 Hour Vital Signs Date Time Temp Pulse Resp B/P (MAP) Pulse Ox O2 Delivery O2 Flow Rate FiO2 07/05/17 12:00 84 07/05/17 12:00 98.0 90 18 146/90 99 Venturi Mask 40 07/05/17 09:56 Non-Rebreather 15.0 100 07/05/17 09:55 99 Non-Rebreather 15.0 100 07/05/17 08:00 98.2 98 18 149/106 99 Non-Rebreather 15.0 99 07/05/17 07:40 97 07/05/17 04:00 89 07/05/17 04:00 98.4 85 24 134/69 100 Non-Rebreather 15.0 100 07/05/17 00:00 118 07/05/17 00:00 98.8 114 30 146/82 100 Non-Rebreather 15.0 100 07/04/17 20:00 105 07/04/17 20:00 98.2 109 22 138/79 100 Non-Rebreather 15.0 100 07/04/17 19:17 98.4 07/04/17 19:17 98.4 07/04/17 16:00 99.2 102 19 146/87 100 Non-Rebreather 15.0 100 07/04/17 16:00 105 Intake and Output 07/04/17 07/05/17 19:00 07:00 Intake Total 1754.250 ml 760 ml Output Total 1000 ml Balance 754.250 ml 760 ml Free Water 180 ml 300 ml IV Total 1024.250 ml 110 ml Tube Feeding 550 ml 350 ml Output Urine Total 1000 ml Laboratory Tests Test 07/04/17 20:35 Sodium Level 154 MMOL/L (136-145) H Potassium Level 4.0 MMOL/L (3.5-5.1) Chloride Level 114 MMOL/L (98-107) H Carbon Dioxide Level 30 MMOL/L (21-32) Anion Gap 10 mmol/L (5-15) Blood Urea Nitrogen 52 mg/dL (7-18) H Creatinine 1.9 MG/DL (0.55-1.30) H Estimat Glomerular Filtration Rate 50.7 mL/min (>60) Glucose Level 675 MG/DL (74-106) #*H Calcium Level 9.1 MG/DL (8.5-10.1) Objective HEAD AND NECK: No JVD.Nasal Cannula on. NG tube in. LUNGS: Clear. CARDIOVASCULAR: Regular S1 and S2 with no gallop or murmur. ABDOMEN: Soft and nontender. EXTREMITIES: No pitting edema. ALBERT ROWAN Jul 05, 2017 14:44
--- NOTE | 2017-07-05 15:38 | Infectious Diseases Prog Note ---
Assessment/Plan Problems: (1) Pneumonia Assessment & Plan: due to Acinetobacter baumannii , on ceftazidime to treat for two weeks , EOT 07/18/16, monitor CXR (2) Sepsis Assessment & Plan: less likely with negative blood culture , on wide spectrum antibiotics (3) Pancreatitis Assessment & Plan: improved , monitor lipase, GI is following, restarted on tube feeding (4) Cardiopulmonary arrest Assessment & Plan: was extubated from mechanical ventilation , as per family request and made DNR and started on morphin drip, but family changed his code status to full code , he is on tele monitor , cardiology is following , may need tracheostomy and PEG placement . (5) Anoxic cerebral edema Assessment & Plan: with no improvement, has poor prognosis , no tracheostomy , or PEG tube placement as per family , now full code as per family request , but postural and spastic and unresponsive . Subjective ROS Limited/Unobtainable: Yes Allergies: Coded Allergies: No Known Allergies (Unverified , 06/15/17) Subjective he is still unresponsive and tachypneic , on high flow oxygen via mask, in MARIE , postural and spastic in the lower extremities , dosen't follow commands , afebrile . Objective Vital Signs Last 24 Hour Vital Signs Date Time Temp Pulse Resp B/P (MAP) Pulse Ox O2 Delivery O2 Flow Rate FiO2 07/05/17 12:00 84 07/05/17 12:00 98.0 90 18 146/90 99 Venturi Mask 40 07/05/17 09:56 Non-Rebreather 15.0 100 07/05/17 09:55 99 Non-Rebreather 15.0 100 07/05/17 08:00 98.2 98 18 149/106 99 Non-Rebreather 15.0 99 07/05/17 07:40 97 07/05/17 04:00 89 07/05/17 04:00 98.4 85 24 134/69 100 Non-Rebreather 15.0 100 07/05/17 00:00 118 07/05/17 00:00 98.8 114 30 146/82 100 Non-Rebreather 15.0 100 07/04/17 20:00 105 07/04/17 20:00 98.2 109 22 138/79 100 Non-Rebreather 15.0 100 07/04/17 19:17 98.4 07/04/17 19:17 98.4 07/04/17 16:00 99.2 102 19 146/87 100 Non-Rebreather 15.0 100 07/04/17 16:00 105 Height (Feet): 5 Height (Inches): 6.00 Weight (Pounds): 123 General Appearance: WD/WN, no acute distress HEENT: normocephalic, atraumatic, anicteric, mucous membranes moist, supple, no JVD Respiratory/Chest: chest wall non-tender, no respiratory distress, no accessory muscle use, decreased breath sounds, crackles/rales Cardiovascular: normal peripheral pulses, normal rate, regular rhythm, no gallop/murmur, no JVD Abdomen: normal bowel sounds, soft, non tender, no organomegaly, non distended , no mass, no scars Extremities: no cyanosis, no clubbing Skin: no rash, no lesions, no ulcers Neurologic/Psychiatric: alert, unresponsiveness Laboratory Tests Test 07/04/17 20:35 07/05/17 14:35 Sodium Level 154 MMOL/L (136-145) H Potassium Level 4.0 MMOL/L (3.5-5.1) Chloride Level 114 MMOL/L (98-107) H Carbon Dioxide Level 30 MMOL/L (21-32) Anion Gap 10 mmol/L (5-15) Blood Urea Nitrogen 52 mg/dL (7-18) H Creatinine 1.9 MG/DL (0.55-1.30) H Estimat Glomerular Filtration Rate 50.7 mL/min (>60) Glucose Level 675 MG/DL (74-106) #*H Calcium Level 9.1 MG/DL (8.5-10.1) Arterial Blood pH 7.500 (7.350-7.450) Arterial Blood Partial Pressure CO2 40.4 mmHg (35.0-45.0) Arterial Blood Partial Pressure O2 59.7 mmHg (75.0-100.0) L Arterial Blood HCO3 30.7 mmol/L (22.0-26.0) H Arterial Blood Oxygen Saturation 91.5 % (92.0-98.0) L Arterial Blood Base Excess 70.0 Juanito Test Positive Current Medications Medications (Trade) Dose Ordered Sig/Conrado Route PRN Reason Start Time Stop Time Status Last Admin Dose Admin Acetaminophen (Tylenol) 500 mg Q6HR PRN NG Mild Pain/Temp > 100.5 07/01/17 02:45 07/31/17 02:44 07/04/17 18:47 Ceftazidime 1 gm/ Dextrose 55 ml @ 110 mls/hr Q8HR IV 07/04/17 12:00 07/11/17 11:59 07/05/17 14:14 Dextrose (Dextrose 50%) STAT PRN IV Hypoglycemia 07/01/17 22:30 07/29/17 22:29 Insulin Aspart (NovoLOG) per DR. Corrigan to h... Q6HR SUBQ 07/05/17 00:00 08/04/17 00:00 07/05/17 12:00 Insulin Detemir (Levemir) 25 units Q12HR SUBQ 07/04/17 21:00 08/03/17 20:59 07/05/17 09:03 Saad Cummings M.D. Jul 05, 2017 15:37
[2017-07-05 16:00] VITALS: BP 161/102
[2017-07-05] MEDS ORDERED: D5W w/KCl 20mEq 1,000 ML IV SCH (16:30)
[2017-07-05 20:00] VITALS: BP 174/107
--- NOTE | 2017-07-05 23:33 | Nephrology Progress Note ---
Assessment/Plan Problem List: (1) Hyponatremia (2) Sepsis (3) Alcohol withdrawal (4) Pneumonia (5) Cardiopulmonary arrest (6) Metabolic acidosis (7) DKA (diabetic ketoacidosis) (8) Transaminitis (9) Hypokalemia (10) Hypernatremia (11) Anoxic encephalopathy syndrome (12) Anoxic cerebral edema (13) Shock liver (14) Fever (15) Respiratory distress (16) Pancreatitis (17) Elevated troponin Plan pulm following. FULL CODE. pending PEG when more stable. abx per ID. cardio and neuro following. d/w RN. monitor labs. Subjective Subjective on NRB mask. unresponsive. Objective Objective Last 24 Hour Vital Signs Date Time Temp Pulse Resp B/P (MAP) Pulse Ox O2 Delivery O2 Flow Rate FiO2 07/05/17 20:00 98.6 113 32 174/107 95 Venturi Mask 40 07/05/17 20:00 111 07/05/17 16:00 86 07/05/17 16:00 98.0 99 22 161/102 96 Nasal Cannula 3.0 07/05/17 12:00 84 07/05/17 12:00 98.0 90 18 146/90 99 Venturi Mask 40 07/05/17 09:56 Non-Rebreather 15.0 100 07/05/17 09:55 99 Non-Rebreather 15.0 100 07/05/17 08:00 98.2 98 18 149/106 99 Non-Rebreather 15.0 99 07/05/17 07:40 97 07/05/17 04:00 89 07/05/17 04:00 98.4 85 24 134/69 100 Non-Rebreather 15.0 100 07/05/17 00:00 118 07/05/17 00:00 98.8 114 30 146/82 100 Non-Rebreather 15.0 100 Intake and Output 07/04/17 07/05/17 19:00 07:00 Intake Total 1754.250 ml 760 ml Output Total 1000 ml Balance 754.250 ml 760 ml Free Water 180 ml 300 ml IV Total 1024.250 ml 110 ml Tube Feeding 550 ml 350 ml Output Urine Total 1000 ml Laboratory Tests 07/05/17 14:35: Arterial Blood pH 7.500H, Arterial Blood Partial Pressure CO2 40.4, Arterial Blood Partial Pressure O2 59.7L, Arterial Blood HCO3 30.7H, Arterial Blood Oxygen Saturation 91.5L, Arterial Blood Base Excess 70.0, Juanito Test Positive Height (Feet): 5 Height (Inches): 6.00 Weight (Pounds): 123 General Appearance: thin Cardiovascular: tachycardia Respiratory/Chest: lungs clear Abdomen: non tender, soft Extremities: non-pitting Neurologic: unresponsive REMIGIO KNOX Jul 05, 2017 23:33
[2017-07-06] VITALS: BP 161/107
[2017-07-06 04:00] VITALS: BP 180/115
[2017-07-06] MEDS: NovoLOG Insulin Flexpen SUBQ SCH ×5 (05:32→23:30)
[2017-07-06] MEDS: cefTAZidime 1gm/D5W 55ml IV SCH ×6 (05:42→20:43)
[2017-07-06 07:32] LABS: BASOPHILS % (AUTO) 0.7 % (0.0-2.0); EOSINOPHILS % (AUTO) 4.5 % (0.0-3.0); HEMATOCRIT 33.9 % (42.0-52.0); HEMOGLOBIN 10.7 G/DL (14.2-18.0); LYMPHOCYTES % (AUTO) 12.7 % (20.0-45.0); MEAN CORPUSCULAR VOLUME 100 FL (80-99); MONOCYTES % (AUTO) 9.9 % (1.0-10.0); NEUTROPHILS % (AUTO) 72.3 % (45.0-75.0); PLATELET COUNT 308 K/UL (150-450); RED BLOOD COUNT 3.39 M/UL (4.70-6.10); RED CELL DISTRIBUTION WIDTH 12.1 % (11.6-14.8); WHITE BLOOD COUNT 12.2 K/UL (4.8-10.8)
[2017-07-06 07:57] LABS: ANION GAP 13 mmol/L (5-15); BLOOD UREA NITROGEN 49 mg/dL (7-18); CARBON DIOXIDE 31 MMOL/L (21-32); CHLORIDE 120 MMOL/L (98-107); CREATININE 1.8 MG/DL (0.55-1.30); POTASSIUM 3.1 MMOL/L (3.5-5.1)
[2017-07-06 08:00] VITALS: BP 155/108
[2017-07-06 08:01] LABS: SODIUM 161 MMOL/L (136-145)
[2017-07-06] MEDS: Levemir Flexpen SUBQ SCH ×2 (09:22→21:11)
--- NOTE | 2017-07-06 11:27 | GI Progress Note ---
Assessment/Plan Problems: (1) Shock liver ICD Codes: K72.00 - Acute and subacute hepatic failure without coma SNOMED: 390701617 (2) Anoxic cerebral edema ICD Codes: G93.6 - Cerebral edema; R09.02 - Hypoxemia SNOMED: 5875635, 953341758 (3) Transaminitis ICD Codes: R74.0 - Nonspecific elevation of levels of transaminase and lactic acid dehydrogenase [LDH] SNOMED: 490095432, 327242590 (4) Alcohol withdrawal ICD Codes: F10.239 - Alcohol dependence with withdrawal, unspecified SNOMED: 781585110 (5) Pancreatitis ICD Codes: K85.90 - Acute pancreatitis without necrosis or infection, unspecified SNOMED: 29972180 Status: unchanged Status Narrative Discussed with Dr. Rico. Assessment/Plan will schedule PEG once respiratory status stable >> patient now on venturi - consent obtained. cont NGTFs electrolyte correction >> increase NGTF free water flushes fu labs Subjective Subjective limited Objective Last 24 Hour Vital Signs Date Time Temp Pulse Resp B/P (MAP) Pulse Ox O2 Delivery O2 Flow Rate FiO2 07/06/17 08:00 97.9 104 24 155/108 95 Venturi Mask 40 07/06/17 08:00 105 07/06/17 04:00 110 07/06/17 04:00 98.6 104 32 180/115 95 Venturi Mask 40 07/06/17 00:00 118 07/06/17 00:00 99.0 111 32 161/107 96 Venturi Mask 40 07/05/17 20:00 98.6 113 32 174/107 95 Venturi Mask 40 07/05/17 20:00 111 07/05/17 16:00 86 07/05/17 16:00 98.0 99 22 161/102 96 Nasal Cannula 3.0 07/05/17 12:00 84 07/05/17 12:00 98.0 90 18 146/90 99 Venturi Mask 40 Intake and Output 07/05/17 07/06/17 19:00 07:00 Intake Total 855 ml 890 ml Output Total 650 ml 1010 ml Balance 205 ml -120 ml Free Water 330 ml 300 ml IV Total 55 ml 110 ml Tube Feeding 470 ml 480 ml Output Urine Total 550 ml 1000 ml Stool Total 100 ml 10 ml Laboratory Tests Test 1/25/18 14:35 07/06/17 05:40 Arterial Blood pH 7.500 (7.350-7.450) Arterial Blood Partial Pressure CO2 40.4 mmHg (35.0-45.0) Arterial Blood Partial Pressure O2 59.7 mmHg (75.0-100.0) L Arterial Blood HCO3 30.7 mmol/L (22.0-26.0) H Arterial Blood Oxygen Saturation 91.5 % (92.0-98.0) L Arterial Blood Base Excess 70.0 Juanito Test Positive White Blood Count 12.2 K/UL (4.8-10.8) H Red Blood Count 3.39 M/UL (4.70-6.10) L Hemoglobin 10.7 G/DL (14.2-18.0) L Hematocrit 33.9 % (42.0-52.0) L Mean Corpuscular Volume 100 FL (80-99) H Mean Corpuscular Hemoglobin 31.5 PG (27.0-31.0) H Mean Corpuscular Hemoglobin Concent 31.4 G/DL (32.0-36.0) L Red Cell Distribution Width 12.1 % (11.6-14.8) Platelet Count 308 K/UL (150-450) Mean Platelet Volume 8.0 FL (6.5-10.1) Neutrophils (%) (Auto) 72.3 % (45.0-75.0) Lymphocytes (%) (Auto) 12.7 % (20.0-45.0) L Monocytes (%) (Auto) 9.9 % (1.0-10.0) Eosinophils (%) (Auto) 4.5 % (0.0-3.0) H Basophils (%) (Auto) 0.7 % (0.0-2.0) Sodium Level 161 MMOL/L (136-145) *H Potassium Level 3.1 MMOL/L (3.5-5.1) L Chloride Level 120 MMOL/L (98-107) H Carbon Dioxide Level 31 MMOL/L (21-32) Anion Gap 13 mmol/L (5-15) Blood Urea Nitrogen 49 mg/dL (7-18) H Creatinine 1.8 MG/DL (0.55-1.30) H Estimat Glomerular Filtration Rate 53.9 mL/min (>60) Glucose Level 364 MG/DL (74-106) #H Calcium Level 10.0 MG/DL (8.5-10.1) Height (Feet): 5 Height (Inches): 6.00 Weight (Pounds): 123 General Appearance: cachetic Cardiovascular: normal rate Respiratory/Chest: no respiratory distress, other - venturi mask Abdominal Exam: normal bowel sounds, non tender, soft, other - NGT Extremities: non-tender Lashawn Mason N.P. Jul 06, 2017 11:27
[2017-07-06 12:00] VITALS: BP_SYST 150; BP_SYST 168; BP_DIAS 112
--- NOTE | 2017-07-06 14:29 | Cardiac Electrophysiology PN ---
Assessment/Plan Assessment/Plan 1. Troponin leak. Levels are flat and due to renal failure with creatinine of 3.5. EF60% 2. Tachycardia due to diabetic ketoacidosis and sepsis. 3. Respiratory failure . S/P Terminal extubation. Full code again. Now on Nasal Cannula. 4. Pneumonia on abx per Dr. Cummings 5. Pancreatitis. 6. ARF 7. Marijuana use. 8. Suspect diffuse cerebral anoxia and edema with decorticate rigidity per Dr Cano. 9. Alcohol withdrawal. 10. Severe Hypernatremia. Na 160. H20 via NG 11. Full code. 12. Dysphagia. NG tube is in. PEG when more stable DW RN Subjective Subjective On MARIE, comatose on iv Abx with NG feeding ongoing.No events Objective Last 24 Hour Vital Signs Date Time Temp Pulse Resp B/P (MAP) Pulse Ox O2 Delivery O2 Flow Rate FiO2 07/06/17 12:00 98.4 112 22 150/112 95 Venturi Mask 40 07/06/17 12:00 101 07/06/17 08:00 97.9 104 24 155/108 95 Venturi Mask 40 07/06/17 08:00 105 07/06/17 04:00 110 07/06/17 04:00 98.6 104 32 180/115 95 Venturi Mask 40 07/06/17 00:00 118 07/06/17 00:00 99.0 111 32 161/107 96 Venturi Mask 40 07/05/17 20:00 98.6 113 32 174/107 95 Venturi Mask 40 07/05/17 20:00 111 07/05/17 16:00 86 07/05/17 16:00 98.0 99 22 161/102 96 Nasal Cannula 3.0 Intake and Output 07/05/17 07/06/17 19:00 07:00 Intake Total 855 ml 890 ml Output Total 650 ml 1010 ml Balance 205 ml -120 ml Free Water 330 ml 300 ml IV Total 55 ml 110 ml Tube Feeding 470 ml 480 ml Output Urine Total 550 ml 1000 ml Stool Total 100 ml 10 ml Laboratory Tests Test 07/05/17 14:35 07/06/17 05:40 Arterial Blood pH 7.500 (7.350-7.450) Arterial Blood Partial Pressure CO2 40.4 mmHg (35.0-45.0) Arterial Blood Partial Pressure O2 59.7 mmHg (75.0-100.0) L Arterial Blood HCO3 30.7 mmol/L (22.0-26.0) H Arterial Blood Oxygen Saturation 91.5 % (92.0-98.0) L Arterial Blood Base Excess 70.0 Juanito Test Positive White Blood Count 12.2 K/UL (4.8-10.8) H Red Blood Count 3.39 M/UL (4.70-6.10) L Hemoglobin 10.7 G/DL (14.2-18.0) L Hematocrit 33.9 % (42.0-52.0) L Mean Corpuscular Volume 100 FL (80-99) H Mean Corpuscular Hemoglobin 31.5 PG (27.0-31.0) H Mean Corpuscular Hemoglobin Concent 31.4 G/DL (32.0-36.0) L Red Cell Distribution Width 12.1 % (11.6-14.8) Platelet Count 308 K/UL (150-450) Mean Platelet Volume 8.0 FL (6.5-10.1) Neutrophils (%) (Auto) 72.3 % (45.0-75.0) Lymphocytes (%) (Auto) 12.7 % (20.0-45.0) L Monocytes (%) (Auto) 9.9 % (1.0-10.0) Eosinophils (%) (Auto) 4.5 % (0.0-3.0) H Basophils (%) (Auto) 0.7 % (0.0-2.0) Sodium Level 161 MMOL/L (136-145) *H Potassium Level 3.1 MMOL/L (3.5-5.1) L Chloride Level 120 MMOL/L (98-107) H Carbon Dioxide Level 31 MMOL/L (21-32) Anion Gap 13 mmol/L (5-15) Blood Urea Nitrogen 49 mg/dL (7-18) H Creatinine 1.8 MG/DL (0.55-1.30) H Estimat Glomerular Filtration Rate 53.9 mL/min (>60) Glucose Level 364 MG/DL (74-106) #H Calcium Level 10.0 MG/DL (8.5-10.1) Objective HEAD AND NECK: No JVD.Nasal Cannula on. NG tube in. LUNGS: Clear. CARDIOVASCULAR: Regular S1 and S2 with no gallop or murmur. ABDOMEN: Soft and nontender. EXTREMITIES: No pitting edema. ALBERT ROWAN Jul 06, 2017 14:29
--- NOTE | 2017-07-06 14:44 | Infectious Diseases Prog Note ---
Assessment/Plan Problems: (1) Pneumonia Assessment & Plan: due to Acinetobacter baumannii , on ceftazidime to treat for two weeks , EOT 07/18/16, monitor CXR (2) Pancreatitis Assessment & Plan: improved , monitor lipase, GI is following, restarted on tube feeding (3) Cardiopulmonary arrest Assessment & Plan: was extubated from mechanical ventilation , as per family request and made DNR and started on morphin drip, but family changed his code status to full code , he is on tele monitor , cardiology is following , may need tracheostomy and PEG placement . (4) Anoxic cerebral edema Assessment & Plan: with no improvement, has poor prognosis , no tracheostomy , or PEG tube placement as per family , now full code as per family request , but postural and spastic and unresponsive . (5) Dysphagia Assessment & Plan: he will need permanent tube feeding for nutritional support Subjective ROS Limited/Unobtainable: Yes Allergies: Coded Allergies: No Known Allergies (Unverified , 06/15/17) Subjective he is still unresponsive and tachypneic , on high flow oxygen via mask, in MARIE , postural and spastic in the lower extremities , dosen't follow commands , afebrile . Objective Vital Signs Last 24 Hour Vital Signs Date Time Temp Pulse Resp B/P (MAP) Pulse Ox O2 Delivery O2 Flow Rate FiO2 07/06/17 12:00 98.4 112 22 150/112 95 Venturi Mask 40 07/06/17 12:00 101 07/06/17 08:00 97.9 104 24 155/108 95 Venturi Mask 40 07/06/17 08:00 105 07/06/17 04:00 110 07/06/17 04:00 98.6 104 32 180/115 95 Venturi Mask 40 07/06/17 00:00 118 07/06/17 00:00 99.0 111 32 161/107 96 Venturi Mask 40 07/05/17 20:00 98.6 113 32 174/107 95 Venturi Mask 40 07/05/17 20:00 111 07/05/17 16:00 86 07/05/17 16:00 98.0 99 22 161/102 96 Nasal Cannula 3.0 Height (Feet): 5 Height (Inches): 6.00 Weight (Pounds): 123 General Appearance: WD/WN, cachetic HEENT: normocephalic, atraumatic, anicteric, mucous membranes moist, supple, no JVD Respiratory/Chest: respiratory distress, decreased breath sounds, crackles/ rales, expiratory wheezing Cardiovascular: normal peripheral pulses, regular rhythm, no gallop/murmur, no JVD, tachycardia Abdomen: no organomegaly, non distended, no mass, no scars Genitourinary: normal external genitalia Extremities: no cyanosis, no clubbing Skin: no rash, no lesions, no ulcers Neurologic/Psychiatric: unresponsiveness Laboratory Tests Test 07/06/17 05:40 White Blood Count 12.2 K/UL (4.8-10.8) H Red Blood Count 3.39 M/UL (4.70-6.10) L Hemoglobin 10.7 G/DL (14.2-18.0) L Hematocrit 33.9 % (42.0-52.0) L Mean Corpuscular Volume 100 FL (80-99) H Mean Corpuscular Hemoglobin 31.5 PG (27.0-31.0) H Mean Corpuscular Hemoglobin Concent 31.4 G/DL (32.0-36.0) L Red Cell Distribution Width 12.1 % (11.6-14.8) Platelet Count 308 K/UL (150-450) Mean Platelet Volume 8.0 FL (6.5-10.1) Neutrophils (%) (Auto) 72.3 % (45.0-75.0) Lymphocytes (%) (Auto) 12.7 % (20.0-45.0) L Monocytes (%) (Auto) 9.9 % (1.0-10.0) Eosinophils (%) (Auto) 4.5 % (0.0-3.0) H Basophils (%) (Auto) 0.7 % (0.0-2.0) Sodium Level 161 MMOL/L (136-145) *H Potassium Level 3.1 MMOL/L (3.5-5.1) L Chloride Level 120 MMOL/L (98-107) H Carbon Dioxide Level 31 MMOL/L (21-32) Anion Gap 13 mmol/L (5-15) Blood Urea Nitrogen 49 mg/dL (7-18) H Creatinine 1.8 MG/DL (0.55-1.30) H Estimat Glomerular Filtration Rate 53.9 mL/min (>60) Glucose Level 364 MG/DL (74-106) #H Calcium Level 10.0 MG/DL (8.5-10.1) Current Medications Medications (Trade) Dose Ordered Sig/Conrado Route PRN Reason Start Time Stop Time Status Last Admin Dose Admin Acetaminophen (Tylenol) 500 mg Q6HR PRN NG Mild Pain/Temp > 100.5 07/01/17 02:45 07/31/17 02:44 07/04/17 18:47 Ceftazidime 1 gm/ Dextrose 55 ml @ 110 mls/hr Q8HR IV 07/04/17 12:00 07/11/17 11:59 07/06/17 13:15 Dextrose (Dextrose 50%) STAT PRN IV Hypoglycemia 07/01/17 22:30 07/29/17 22:29 Insulin Aspart (NovoLOG) per DR. Corrigan to h... Q6HR SUBQ 07/05/17 00:00 08/04/17 00:00 07/06/17 12:19 Insulin Detemir (Levemir) 25 units Q12HR SUBQ 07/04/17 21:00 08/03/17 20:59 07/06/17 09:22 Saad Cummings M.D. Jul 06, 2017 14:44
[2017-07-06] MEDS ORDERED: NS 500ML ONE (15:25)
[2017-07-06] MEDS ORDERED: 1/2 NS 1000ml IV ONE (15:25)
[2017-07-06] MEDS ORDERED: Tubing IV Secondary IV ONE (15:25)
[2017-07-06 16:00] VITALS: BP 156/107
--- NOTE | 2017-07-06 19:39 | Nephrology Progress Note ---
Assessment/Plan Problem List: (1) Hypernatremia (2) Hypokalemia Assessment: corrected (3) Fever (4) Acidosis (5) Respiratory distress (6) Pancreatitis (7) Elevated troponin (8) Alcohol withdrawal (9) Pneumonia (10) Sepsis (11) Cardiopulmonary arrest (12) Metabolic acidosis (13) DKA (diabetic ketoacidosis) Plan Continue current treatment plan D5W @ 75cc/hr Accu-check q4h Continue free water flushes Replete K Suspect diffuse cerebral anoxia and edema with decorticate rigidity per Dr Cano. Monitor lytes, correct prn Monitor neuro status, f/u with neurology rec Continue NG tube feeding and IVF Pending PEG placement Strict glycemic control Abx per ID Monitor intake and output Free water flush Continue pauline Subjective ROS Limited/Unobtainable: Yes Subjective Seen in MARIE, on non rebreather mask,unresponsive, afebrile Objective Objective Last 24 Hour Vital Signs Date Time Temp Pulse Resp B/P (MAP) Pulse Ox O2 Delivery O2 Flow Rate FiO2 07/06/17 16:00 121 07/06/17 16:00 99.1 124 28 156/107 90 Venturi Mask 40 07/06/17 12:00 98.4 112 22 150/112 95 Venturi Mask 40 07/06/17 12:00 101 07/06/17 08:00 97.9 104 24 155/108 95 Venturi Mask 40 07/06/17 08:00 105 07/06/17 04:00 110 07/06/17 04:00 98.6 104 32 180/115 95 Venturi Mask 40 07/06/17 00:00 118 07/06/17 00:00 99.0 111 32 161/107 96 Venturi Mask 40 07/05/17 20:00 98.6 113 32 174/107 95 Venturi Mask 40 07/05/17 20:00 111 Intake and Output 07/05/17 07/06/17 19:00 07:00 Intake Total 855 ml 890 ml Output Total 650 ml 1010 ml Balance 205 ml -120 ml Free Water 330 ml 300 ml IV Total 55 ml 110 ml Tube Feeding 470 ml 480 ml Output Urine Total 550 ml 1000 ml Stool Total 100 ml 10 ml Laboratory Tests 07/06/17 05:40: White Blood Count 12.2H, Red Blood Count 3.39L, Hemoglobin 10.7L, Hematocrit 33.9L, Mean Corpuscular Volume 100H, Mean Corpuscular Hemoglobin 31.5H, Mean Corpuscular Hemoglobin Concent 31.4L, Red Cell Distribution Width 12.1, Platelet Count 308, Mean Platelet Volume 8.0, Neutrophils (%) (Auto) 72.3, Lymphocytes (%) (Auto) 12.7L, Monocytes (%) (Auto) 9.9, Eosinophils (%) (Auto) 4.5H, Basophils (%) (Auto) 0.7, Sodium Level 161*H, Potassium Level 3.1L, Chloride Level 120H, Carbon Dioxide Level 31, Anion Gap 13, Blood Urea Nitrogen 49H, Creatinine 1.8H, Estimat Glomerular Filtration Rate 53.9, Glucose Level 364 #H, Calcium Level 10.0 Height (Feet): 5 Height (Inches): 6.00 Weight (Pounds): 123 General Appearance: no apparent distress Neck: stiff neck Cardiovascular: normal rate Respiratory/Chest: decreased breath sounds Abdomen: soft Genitourinary/Rectal: other - carpenter Extremities: trace edema Neurologic: unresponsive Hannah Johnson N.P. Jul 06, 2017 19:39
[2017-07-06 20:00] VITALS: BP 147/105
[2017-07-07] VITALS: BP 157/97
[2017-07-07 04:00] VITALS: BP 146/89
[2017-07-07] MEDS: NovoLOG Insulin Flexpen SUBQ SCH ×5 (04:00→20:06)
[2017-07-07 04:37] LABS: BASOPHILS % (AUTO) 1.1 % (0.0-2.0); EOSINOPHILS % (AUTO) 4.6 % (0.0-3.0); HEMATOCRIT 33.7 % (42.0-52.0); HEMOGLOBIN 10.9 G/DL (14.2-18.0); MEAN CORPUSCULAR VOLUME 100 FL (80-99); MONOCYTES % (AUTO) 11.2 % (1.0-10.0); NEUTROPHILS % (AUTO) 67.1 % (45.0-75.0); PLATELET COUNT 345 K/UL (150-450); RED BLOOD COUNT 3.38 M/UL (4.70-6.10); RED CELL DISTRIBUTION WIDTH 12.3 % (11.6-14.8); WHITE BLOOD COUNT 14.2 K/UL (4.8-10.8)
[2017-07-07 04:44] LABS: ANION GAP 8 mmol/L (5-15); BLOOD UREA NITROGEN 54 mg/dL (7-18); CALCIUM 9.7 MG/DL (8.5-10.1); CARBON DIOXIDE 33 MMOL/L (21-32); CHLORIDE 123 MMOL/L (98-107); CREATININE 1.8 MG/DL (0.55-1.30)
[2017-07-07 04:56] LABS: SODIUM 165 MMOL/L (136-145)
[2017-07-07] MEDS: cefTAZidime 1gm/D5W 55ml IV SCH ×6 (05:09→20:04)
[2017-07-07 08:00] VITALS: BP 150/98
[2017-07-07] MEDS: Levemir Flexpen SUBQ SCH ×2 (08:45→20:11)
[2017-07-07 12:00] VITALS: BP 150/104
--- NOTE | 2017-07-07 13:28 | General Progress Note ---
Assessment/Plan Assessment/Plan Assessment/Plan Problems: (1) Shock liver ICD Codes: K72.00 - Acute and subacute hepatic failure without coma SNOMED: 668914869 (2) Anoxic cerebral edema ICD Codes: G93.6 - Cerebral edema; R09.02 - Hypoxemia SNOMED: 0703332, 765205955 (3) Transaminitis ICD Codes: R74.0 - Nonspecific elevation of levels of transaminase and lactic acid dehydrogenase [LDH] SNOMED: 389023808, 721767133 (4) Alcohol withdrawal ICD Codes: F10.239 - Alcohol dependence with withdrawal, unspecified SNOMED: 991221881 (5) Pancreatitis ICD Codes: K85.90 - Acute pancreatitis without necrosis or infection, unspecified SNOMED: 19985075 Status: unchanged Assessment/Plan Supportie care Elevate HOB correct electrolytes monitor H&H, prn transfusions fu labs change TF to help with Na correction Subjective Allergies: Coded Allergies: No Known Allergies (Unverified , 06/15/17) Subjective family at bedside tolerating TF non communicative Objective Last 24 Hour Vital Signs Date Time Temp Pulse Resp B/P (MAP) Pulse Ox O2 Delivery O2 Flow Rate FiO2 07/07/17 12:00 98.8 110 22 150/104 99 Venturi Mask 40 07/07/17 12:00 118 07/07/17 08:00 110 07/07/17 08:00 97.9 111 25 150/98 95 Venturi Mask 40 07/07/17 07:15 Venturi Mask 8.0 40 07/07/17 07:15 97 Venturi Mask 8.0 40 07/07/17 04:00 98.6 120 32 146/89 95 Venturi Mask 40 07/07/17 04:00 120 07/07/17 00:24 Venturi Mask 8.0 55 07/07/17 00:23 98 Venturi Mask 8.0 55 07/07/17 00:00 98.8 110 32 157/97 95 Venturi Mask 40 07/06/17 20:00 107 07/06/17 20:00 98.4 107 32 147/105 96 Venturi Mask 40 07/06/17 16:00 121 07/06/17 16:00 99.1 124 28 156/107 90 Venturi Mask 40 Intake and Output 07/06/17 07/07/17 19:00 07:00 Intake Total 175 ml 1220 ml Output Total 1330 ml 950 ml Balance -1155 ml 270 ml IV Total 55 ml 860 ml Tube Feeding 120 ml 360 ml Output Urine Total 1300 ml 950 ml Stool Total 30 ml # Bowel Movements 150 Laboratory Tests 07/07/17 03:55: White Blood Count 14.2H, Red Blood Count 3.38L, Hemoglobin 10.9L, Hematocrit 33.7L, Mean Corpuscular Volume 100H, Mean Corpuscular Hemoglobin 32.1H, Mean Corpuscular Hemoglobin Concent 32.2, Red Cell Distribution Width 12.3, Platelet Count 345, Mean Platelet Volume 7.8, Neutrophils (%) (Auto) 67.1, Lymphocytes (% ) (Auto) 16.0L, Monocytes (%) (Auto) 11.2H, Eosinophils (%) (Auto) 4.6H, Basophils (%) (Auto) 1.1, Sodium Level 165*H, Potassium Level 3.0L, Chloride Level 123H, Carbon Dioxide Level 33H, Anion Gap 8, Blood Urea Nitrogen 54H, Creatinine 1.8H, Estimat Glomerular Filtration Rate 53.9, Glucose Level 147#H, Calcium Level 9.7 Height (Feet): 5 Height (Inches): 6.00 Weight (Pounds): 123 Objective Thin AA man NCAT supple CTA RR soft NT ND no edema DARIELA NAVA Jul 07, 2017 13:28
[2017-07-07] MEDS ORDERED: Tubing IV Secondary IV ONE ×2 (13:56→15:39)
[2017-07-07] MEDS ORDERED: NS 500ML ONE (13:56)
--- NOTE | 2017-07-07 15:38 | Infectious Diseases Prog Note ---
Assessment/Plan Problems: (1) Pneumonia Assessment & Plan: due to Acinetobacter baumannii , on ceftazidime to treat for two weeks , EOT 07/18/16, monitor CXR (2) Pancreatitis Assessment & Plan: improved , monitor lipase, GI is following, restarted on tube feeding (3) Cardiopulmonary arrest Assessment & Plan: was extubated from mechanical ventilation , as per family request and made DNR and started on morphin drip, but family changed his code status to full code , he is on tele monitor , cardiology is following , may need tracheostomy and PEG placement . (4) Anoxic cerebral edema Assessment & Plan: with no improvement, has poor prognosis , no tracheostomy , or PEG tube placement as per family , now full code as per family request , but postural and spastic and unresponsive . (5) Dysphagia Assessment & Plan: he will need permanent tube feeding for nutritional support , if family wants to proceed with full support (6) Hypernatremia Assessment & Plan: recommend hydration with free water , to bring his sodium down slowly Subjective ROS Limited/Unobtainable: Yes Allergies: Coded Allergies: No Known Allergies (Unverified , 06/15/17) Subjective he is still unresponsive , on high flow oxygen via mask, in MARIE , postural and spastic in the lower extremities , dosen't follow commands , afebrile .opens eyes spontaneously on/off . dosen't track Objective Vital Signs Last 24 Hour Vital Signs Date Time Temp Pulse Resp B/P (MAP) Pulse Ox O2 Delivery O2 Flow Rate FiO2 07/07/17 12:00 98.8 110 22 150/104 99 Venturi Mask 40 07/07/17 12:00 118 07/07/17 08:00 110 07/07/17 08:00 97.9 111 25 150/98 95 Venturi Mask 40 07/07/17 07:15 Venturi Mask 8.0 40 07/07/17 07:15 97 Venturi Mask 8.0 40 07/07/17 04:00 98.6 120 32 146/89 95 Venturi Mask 40 07/07/17 04:00 120 07/07/17 00:24 Venturi Mask 8.0 55 07/07/17 00:23 98 Venturi Mask 8.0 55 07/07/17 00:00 98.8 110 32 157/97 95 Venturi Mask 40 1/26/18 20:00 107 07/06/17 20:00 98.4 107 32 147/105 96 Venturi Mask 40 07/06/17 16:00 121 07/06/17 16:00 99.1 124 28 156/107 90 Venturi Mask 40 Height (Feet): 5 Height (Inches): 6.00 Weight (Pounds): 123 General Appearance: WD/WN, no acute distress, cachetic HEENT: normocephalic, atraumatic, anicteric, mucous membranes moist, PERRL, EOMI, no JVD Respiratory/Chest: chest wall non-tender, lungs clear, normal breath sounds, no respiratory distress, no accessory muscle use Cardiovascular: normal peripheral pulses, normal rate, regular rhythm, no gallop/murmur, no JVD Abdomen: normal bowel sounds, soft, non tender, no organomegaly, non distended , no mass, no scars Extremities: no cyanosis, no clubbing Skin: no rash, no lesions, no ulcers Neurologic/Psychiatric: unresponsiveness Laboratory Tests Test 07/07/17 03:55 White Blood Count 14.2 K/UL (4.8-10.8) H Red Blood Count 3.38 M/UL (4.70-6.10) L Hemoglobin 10.9 G/DL (14.2-18.0) L Hematocrit 33.7 % (42.0-52.0) L Mean Corpuscular Volume 100 FL (80-99) H Mean Corpuscular Hemoglobin 32.1 PG (27.0-31.0) H Mean Corpuscular Hemoglobin Concent 32.2 G/DL (32.0-36.0) Red Cell Distribution Width 12.3 % (11.6-14.8) Platelet Count 345 K/UL (150-450) Mean Platelet Volume 7.8 FL (6.5-10.1) Neutrophils (%) (Auto) 67.1 % (45.0-75.0) Lymphocytes (%) (Auto) 16.0 % (20.0-45.0) L Monocytes (%) (Auto) 11.2 % (1.0-10.0) H Eosinophils (%) (Auto) 4.6 % (0.0-3.0) H Basophils (%) (Auto) 1.1 % (0.0-2.0) Sodium Level 165 MMOL/L (136-145) *H Potassium Level 3.0 MMOL/L (3.5-5.1) L Chloride Level 123 MMOL/L (98-107) H Carbon Dioxide Level 33 MMOL/L (21-32) H Anion Gap 8 mmol/L (5-15) Blood Urea Nitrogen 54 mg/dL (7-18) H Creatinine 1.8 MG/DL (0.55-1.30) H Estimat Glomerular Filtration Rate 53.9 mL/min (>60) Glucose Level 147 MG/DL (74-106) #H Calcium Level 9.7 MG/DL (8.5-10.1) Current Medications Medications (Trade) Dose Ordered Sig/Conrado Route PRN Reason Start Time Stop Time Status Last Admin Dose Admin Acetaminophen (Tylenol) 500 mg Q6HR PRN NG Mild Pain/Temp > 100.5 07/01/17 02:45 07/31/17 02:44 07/04/17 18:47 Ceftazidime 1 gm/ Dextrose 55 ml @ 110 mls/hr Q8HR IV 07/04/17 12:00 07/11/17 11:59 07/07/17 13:28 Dextrose 1,000 ml @ 75 mls/hr [id number] IV 07/06/17 20:00 08/05/17 19:59 07/07/17 08:45 Dextrose (Dextrose 50%) STAT PRN IV Hypoglycemia 07/01/17 22:30 07/29/17 22:29 Insulin Aspart (NovoLOG) Q4H SUBQ 07/06/17 19:30 08/05/17 19:29 07/07/17 11:48 Insulin Detemir (Levemir) 25 units Q12HR SUBQ 07/04/17 21:00 08/03/17 20:59 07/07/17 08:45 Saad Cummings M.D. Jul 07, 2017 15:38
[2017-07-07] MEDS ORDERED: Sterile Water Irrig 1000ml IRRIG ONE (15:39)
[2017-07-07 16:00] VITALS: BP 146/99
--- NOTE | 2017-07-07 18:08 | Nephrology Progress Note ---
Assessment/Plan Problem List: (1) Hypernatremia (2) Hypokalemia Assessment: corrected (3) Fever (4) Acidosis (5) Respiratory distress (6) Pancreatitis (7) Elevated troponin (8) Alcohol withdrawal (9) Pneumonia (10) Sepsis (11) Cardiopulmonary arrest (12) Metabolic acidosis (13) DKA (diabetic ketoacidosis) Plan Continue current treatment plan D5W @ 75cc/hr Accu-check q4h Continue free water flushes Replete K Suspect diffuse cerebral anoxia and edema with decorticate rigidity per Dr Cano. Monitor lytes, correct prn Monitor neuro status, f/u with neurology rec Continue NG tube feeding and IVF Pending PEG placement Strict glycemic control Abx per ID Monitor intake and output Free water flush Continue pauline Subjective ROS Limited/Unobtainable: Yes Subjective Seen in MARIE, on non venturi mask,unresponsive, afebrile Objective Objective Last 24 Hour Vital Signs Date Time Temp Pulse Resp B/P (MAP) Pulse Ox O2 Delivery O2 Flow Rate FiO2 07/07/17 16:00 112 07/07/17 16:00 98.1 112 24 146/99 97 Venturi Mask 40 07/07/17 12:00 98.8 110 22 150/104 99 Venturi Mask 40 07/07/17 12:00 118 07/07/17 08:00 110 07/07/17 08:00 97.9 111 25 150/98 95 Venturi Mask 40 07/07/17 07:15 Venturi Mask 8.0 40 07/07/17 07:15 97 Venturi Mask 8.0 40 07/07/17 04:00 98.6 120 32 146/89 95 Venturi Mask 40 07/07/17 04:00 120 07/07/17 00:24 Venturi Mask 8.0 55 07/07/17 00:23 98 Venturi Mask 8.0 55 07/07/17 00:00 98.8 110 32 157/97 95 Venturi Mask 40 07/06/17 20:00 107 07/06/17 20:00 98.4 107 32 147/105 96 Venturi Mask 40 Intake and Output 07/06/17 07/07/17 19:00 07:00 Intake Total 175 ml 1220 ml Output Total 1330 ml 950 ml Balance -1155 ml 270 ml IV Total 55 ml 860 ml Tube Feeding 120 ml 360 ml Output Urine Total 1300 ml 950 ml Stool Total 30 ml # Bowel Movements 150 Laboratory Tests 07/07/17 03:55: White Blood Count 14.2H, Red Blood Count 3.38L, Hemoglobin 10.9L, Hematocrit 33.7L, Mean Corpuscular Volume 100H, Mean Corpuscular Hemoglobin 32.1H, Mean Corpuscular Hemoglobin Concent 32.2, Red Cell Distribution Width 12.3, Platelet Count 345, Mean Platelet Volume 7.8, Neutrophils (%) (Auto) 67.1, Lymphocytes (% ) (Auto) 16.0L, Monocytes (%) (Auto) 11.2H, Eosinophils (%) (Auto) 4.6H, Basophils (%) (Auto) 1.1, Sodium Level 165*H, Potassium Level 3.0L, Chloride Level 123H, Carbon Dioxide Level 33H, Anion Gap 8, Blood Urea Nitrogen 54H, Creatinine 1.8H, Estimat Glomerular Filtration Rate 53.9, Glucose Level 147#H, Calcium Level 9.7 07/07/17 17:36: Arterial Blood pH 7.495H, Arterial Blood Partial Pressure CO2 40.5, Arterial Blood Partial Pressure O2 91.8, Arterial Blood HCO3 30.5H, Arterial Blood Oxygen Saturation 96.6, Arterial Blood Base Excess 6.7, Juanito Test Positive Height (Feet): 5 Height (Inches): 6.00 Weight (Pounds): 123 General Appearance: no apparent distress Neck: stiff neck Cardiovascular: normal rate Respiratory/Chest: decreased breath sounds Abdomen: soft Genitourinary/Rectal: other - carpenter Extremities: trace edema Neurologic: unresponsive Hannah Johnson N.P. Jul 07, 2017 18:08
[2017-07-07 20:00] VITALS: BP 156/106
[2017-07-07] MEDS: Losartan 50mg tab NG SCH (20:04)
[2017-07-08] VITALS: BP 140/101
[2017-07-08] MEDS: NovoLOG Insulin Flexpen SUBQ SCH ×7 (00:13→23:26)
[2017-07-08 04:00] VITALS: BP 160/110
[2017-07-08 04:31] LABS: BASOPHILS % (AUTO) 0.8 % (0.0-2.0); EOSINOPHILS % (AUTO) 5.6 % (0.0-3.0); HEMATOCRIT 33.1 % (42.0-52.0); HEMOGLOBIN 10.5 G/DL (14.2-18.0); LYMPHOCYTES % (AUTO) 14.3 % (20.0-45.0); MEAN CORPUSCULAR VOLUME 100 FL (80-99); MONOCYTES % (AUTO) 7.1 % (1.0-10.0); NEUTROPHILS % (AUTO) 72.2 % (45.0-75.0); PLATELET COUNT 254 K/UL (150-450); RED BLOOD COUNT 3.31 M/UL (4.70-6.10); RED CELL DISTRIBUTION WIDTH 12.1 % (11.6-14.8); WHITE BLOOD COUNT 13.6 K/UL (4.8-10.8)
[2017-07-08 04:44] LABS: ANION GAP 7 mmol/L (5-15); BLOOD UREA NITROGEN 50 mg/dL (7-18); CALCIUM 9.4 MG/DL (8.5-10.1); CARBON DIOXIDE 34 MMOL/L (21-32); CHLORIDE 118 MMOL/L (98-107); CREATININE 1.5 MG/DL (0.55-1.30); POTASSIUM 3.4 MMOL/L (3.5-5.1); SODIUM 158 MMOL/L (136-145)
[2017-07-08] MEDS: cefTAZidime 1gm/D5W 55ml IV SCH ×6 (05:35→19:55)
--- NOTE | 2017-07-08 07:58 | General Progress Note ---
Assessment/Plan Problem List: (1) DKA (diabetic ketoacidosis) ICD Codes: E13.10 - Other specified diabetes mellitus with ketoacidosis without coma SNOMED: 35624287, 992138226 Qualifiers: Qualified Codes: E10.11 - Type 1 diabetes mellitus with ketoacidosis with coma (2) Metabolic acidosis ICD Codes: E87.2 - Acidosis SNOMED: 64008545 (3) Cardiopulmonary arrest ICD Codes: I46.9 - Cardiac arrest, cause unspecified SNOMED: 236470809 Assessment/Plan continue Levemir 25 units bid continue NISS TF is on Subjective ROS Limited/Unobtainable: Yes Allergies: Coded Allergies: No Known Allergies (Unverified , 06/15/17) Subjective events noted Objective Last 24 Hour Vital Signs Date Time Temp Pulse Resp B/P (MAP) Pulse Ox O2 Delivery O2 Flow Rate FiO2 07/08/17 06:14 98 Venturi Mask 8.0 40 07/08/17 06:14 Venturi Mask 8.0 40 07/08/17 04:00 97 07/08/17 04:00 98.7 112 22 160/110 98 Venturi Mask 40 07/08/17 00:00 98.4 119 22 140/101 98 Venturi Mask 40 07/08/17 00:00 106 07/07/17 20:04 156/106 07/07/17 20:00 89 07/07/17 20:00 98.2 109 24 156/106 97 Venturi Mask 40 07/07/17 16:00 112 07/07/17 16:00 98.1 112 24 146/99 97 Venturi Mask 40 07/07/17 12:00 98.8 110 22 150/104 99 Venturi Mask 40 07/07/17 12:00 118 07/07/17 08:00 110 07/07/17 08:00 97.9 111 25 150/98 95 Venturi Mask 40 Intake and Output 07/07/17 07/08/17 19:00 07:00 Intake Total 1955 ml 830 ml Output Total 1000 ml 850 ml Balance 955 ml -20 ml Free Water 800 ml IV Total 955 ml 360 ml Tube Feeding 200 ml 470 ml Output Urine Total 850 ml 850 ml Stool Total 150 ml # Bowel Movements 200 250 Laboratory Tests 07/07/17 17:36: Arterial Blood pH 7.495H, Arterial Blood Partial Pressure CO2 40.5, Arterial Blood Partial Pressure O2 91.8, Arterial Blood HCO3 30.5H, Arterial Blood Oxygen Saturation 96.6, Arterial Blood Base Excess 6.7, Juanito Test Positive 07/08/17 03:55: White Blood Count 13.6H, Red Blood Count 3.31L, Hemoglobin 10.5L, Hematocrit 33.1L, Mean Corpuscular Volume 100H, Mean Corpuscular Hemoglobin 31.7H, Mean Corpuscular Hemoglobin Concent 31.7L, Red Cell Distribution Width 12.1, Platelet Count 254, Mean Platelet Volume 8.1, Neutrophils (%) (Auto) 72.2, Lymphocytes (%) (Auto) 14.3L, Monocytes (%) (Auto) 7.1, Eosinophils (%) (Auto) 5.6H, Basophils (%) (Auto) 0.8, Sodium Level 158H, Potassium Level 3.4L, Chloride Level 118H, Carbon Dioxide Level 34H, Anion Gap 7, Blood Urea Nitrogen 50H, Creatinine 1.5H, Estimat Glomerular Filtration Rate > 60, Glucose Level 205H, Calcium Level 9.4 Height (Feet): 5 Height (Inches): 6.00 Weight (Pounds): 123 EENT: pale conjunctivae Neck: normal alignment Cardiovascular: normal rate Respiratory/Chest: lungs clear Abdomen: normal bowel sounds Objective Current Medications Medications (Trade) Dose Ordered Sig/Conrado Route PRN Reason Start Time Stop Time Status Last Admin Dose Admin Acetaminophen (Tylenol) 500 mg Q6HR PRN NG Mild Pain/Temp > 100.5 07/01/17 02:45 07/31/17 02:44 07/04/17 18:47 Ceftazidime 1 gm/ Dextrose 55 ml @ 110 mls/hr Q8HR IV 07/04/17 12:00 07/11/17 11:59 07/08/17 05:35 Dextrose 1,000 ml @ 75 mls/hr [id number] IV 07/06/17 20:00 08/05/17 19:59 07/07/17 22:38 Dextrose (Dextrose 50%) STAT PRN IV Hypoglycemia 07/01/17 22:30 07/29/17 22:29 Insulin Aspart (NovoLOG) Q4H SUBQ 07/06/17 19:30 08/05/17 19:29 07/08/17 03:39 Insulin Detemir (Levemir) 25 units Q12HR SUBQ 07/04/17 21:00 08/03/17 20:59 07/07/17 20:11 Losartan Potassium (Cozaar) 50 mg EVERY 12 HOURS NG 07/07/17 21:00 08/06/17 20:59 07/07/17 20:04 Item Value Date Time Bedside Blood Glucose 198 mg/dl H 07/08/17 0737 Bedside Blood Glucose 166 mg/dl H 07/08/17 0400 Bedside Blood Glucose 228 mg/dl H 07/08/17 0013 Bedside Blood Glucose 151 mg/dl H 07/07/172010 Bedside Blood Glucose 108 mg/dl 07/07/17 1600 Bedside Blood Glucose 151 mg/dl H 07/07/17 1200 JADIEL MARCANO Jul 08, 2017 07:58
[2017-07-08 08:00] VITALS: BP 150/100
[2017-07-08] MEDS: Losartan 50mg tab NG SCH ×2 (08:51→19:54)
[2017-07-08] MEDS: Levemir Flexpen SUBQ SCH ×2 (08:58→19:50)
--- NOTE | 2017-07-08 09:42 | Diagnostic Imaging Report ---
Indication: COUGH Technique: XRAY Chest 1v Comparison: 06/30/2017 Findings: Heart size and mediastinal contours are stable. NG tube tip in the stomach. There is persistent left basilar opacity/consolidation and possible left-sided pleural effusion. Persistent mild interstitial prominence/edema. No definite pneumothorax. Impression: No significant interval change in left basilar atelectasis/consolidation and possible small left pleural effusion. Persistent mild interstitial opacification/edema. NG tube tip in the stomach.
[2017-07-08 12:00] VITALS: BP 142/96
[2017-07-08] MEDS: D5W w/KCl 20mEq 1,000 ML IV SCH (15:00)
--- NOTE | 2017-07-08 15:10 | Infectious Diseases Prog Note ---
Assessment/Plan Problems: (1) Pneumonia Assessment & Plan: due to Acinetobacter baumannii , on ceftazidime to treat for two weeks , EOT 07/18/16, monitor CXR (2) Pancreatitis Assessment & Plan: improved , monitor lipase, GI is following, restarted on tube feeding (3) Cardiopulmonary arrest Assessment & Plan: was extubated from mechanical ventilation , as per family request and made DNR and started on morphin drip, but family changed his code status to full code , he is on tele monitor , cardiology is following , may need tracheostomy and PEG placement . (4) Anoxic cerebral edema Assessment & Plan: with no improvement, has poor prognosis , no tracheostomy , or PEG tube placement as per family , now full code as per family request , but postural and spastic and unresponsive . (5) Dysphagia Assessment & Plan: he will need permanent tube feeding for nutritional support , if family wants to proceed with full support (6) Hypernatremia Assessment & Plan: recommend hydration with free water , to bring his sodium down slowly Subjective ROS Limited/Unobtainable: Yes Allergies: Coded Allergies: No Known Allergies (Unverified , 06/15/17) Subjective he is still unresponsive , on high flow oxygen via mask, in MARIE , postural and spastic in the lower extremities , dosen't follow commands , afebrile .opens eyes spontaneously on/off . dosen't track Objective Vital Signs Last 24 Hour Vital Signs Date Time Temp Pulse Resp B/P (MAP) Pulse Ox O2 Delivery O2 Flow Rate FiO2 07/08/17 12:00 98.5 87 18 142/96 94 Venturi Mask 8.0 40 07/08/17 12:00 102 07/08/17 08:51 150/100 07/08/17 08:00 109 07/08/17 08:00 98.3 99 19 150/100 99 Venturi Mask 8.0 40 07/08/17 06:14 98 Venturi Mask 8.0 40 07/08/17 06:14 Venturi Mask 8.0 40 07/08/17 04:00 97 07/08/17 04:00 98.7 112 22 160/110 98 Venturi Mask 40 07/08/17 00:00 98.4 119 22 140/101 98 Venturi Mask 40 07/08/17 00:00 106 07/07/17 20:04 156/106 07/07/17 20:00 89 07/07/17 20:00 98.2 109 24 156/106 97 Venturi Mask 40 07/07/17 16:00 112 07/07/17 16:00 98.1 112 24 146/99 97 Venturi Mask 40 Height (Feet): 5 Height (Inches): 6.00 Weight (Pounds): 123 General Appearance: WD/WN, no acute distress HEENT: normocephalic, atraumatic, anicteric, mucous membranes moist, PERRL Respiratory/Chest: chest wall non-tender, no respiratory distress, no accessory muscle use, decreased breath sounds, crackles/rales Cardiovascular: normal peripheral pulses, normal rate, regular rhythm, no gallop/murmur, no JVD Abdomen: soft, non tender, no organomegaly, non distended, no mass, no scars, hypoactive bowel sounds Genitourinary: normal external genitalia Extremities: no cyanosis, no clubbing Skin: no rash, no lesions, ulcers Neurologic/Psychiatric: unresponsiveness Microbiology Date/Time Source Procedure Growth Status 07/07/17 14:15 Stool Clostridium difficile Toxin Assay - Final Complete Laboratory Tests Test 07/07/17 17:36 07/08/17 03:55 Arterial Blood pH 7.495 (7.350-7.450) Arterial Blood Partial Pressure CO2 40.5 mmHg (35.0-45.0) Arterial Blood Partial Pressure O2 91.8 mmHg (75.0-100.0) Arterial Blood HCO3 30.5 mmol/L (22.0-26.0) H Arterial Blood Oxygen Saturation 96.6 % (92.0-98.0) Arterial Blood Base Excess 6.7 Juanito Test Positive White Blood Count 13.6 K/UL (4.8-10.8) H Red Blood Count 3.31 M/UL (4.70-6.10) L Hemoglobin 10.5 G/DL (14.2-18.0) L Hematocrit 33.1 % (42.0-52.0) L Mean Corpuscular Volume 100 FL (80-99) H Mean Corpuscular Hemoglobin 31.7 PG (27.0-31.0) H Mean Corpuscular Hemoglobin Concent 31.7 G/DL (32.0-36.0) L Red Cell Distribution Width 12.1 % (11.6-14.8) Platelet Count 254 K/UL (150-450) Mean Platelet Volume 8.1 FL (6.5-10.1) Neutrophils (%) (Auto) 72.2 % (45.0-75.0) Lymphocytes (%) (Auto) 14.3 % (20.0-45.0) L Monocytes (%) (Auto) 7.1 % (1.0-10.0) Eosinophils (%) (Auto) 5.6 % (0.0-3.0) H Basophils (%) (Auto) 0.8 % (0.0-2.0) Sodium Level 158 MMOL/L (136-145) H Potassium Level 3.4 MMOL/L (3.5-5.1) L Chloride Level 118 MMOL/L (98-107) H Carbon Dioxide Level 34 MMOL/L (21-32) H Anion Gap 7 mmol/L (5-15) Blood Urea Nitrogen 50 mg/dL (7-18) H Creatinine 1.5 MG/DL (0.55-1.30) H Estimat Glomerular Filtration Rate > 60 mL/min (>60) Glucose Level 205 MG/DL (74-106) H Calcium Level 9.4 MG/DL (8.5-10.1) Current Medications Medications (Trade) Dose Ordered Sig/Conrado Route PRN Reason Start Time Stop Time Status Last Admin Dose Admin Acetaminophen (Tylenol) 500 mg Q6HR PRN NG Mild Pain/Temp > 100.5 07/01/17 02:45 07/31/17 02:44 07/04/17 18:47 Ceftazidime 1 gm/ Dextrose 55 ml @ 110 mls/hr Q8HR IV 07/04/17 12:00 07/11/17 11:59 07/08/17 14:01 Dextrose (Dextrose 50%) STAT PRN IV Hypoglycemia 07/01/17 22:30 07/29/17 22:29 Dextrose/ Electrolytes 1,000 ml @ 75 mls/hr [id number] IV 07/08/17 15:00 08/07/17 14:59 Insulin Aspart (NovoLOG) Q4H SUBQ 07/06/17 19:30 08/05/17 19:29 07/08/17 03:39 Insulin Detemir (Levemir) 25 units Q12HR SUBQ 07/04/17 21:00 08/03/17 20:59 07/08/17 08:58 Losartan Potassium (Cozaar) 50 mg EVERY 12 HOURS NG 07/07/17 21:00 08/06/17 20:59 07/08/17 08:51 Saad Cummings M.D. Jul 08, 2017 15:10
[2017-07-08 16:00] VITALS: BP 144/92
--- NOTE | 2017-07-08 16:22 | General Progress Note ---
Assessment/Plan Assessment/Plan Assessment/Plan Problems: (1) Shock liver ICD Codes: K72.00 - Acute and subacute hepatic failure without coma SNOMED: 871851491 (2) Anoxic cerebral edema ICD Codes: G93.6 - Cerebral edema; R09.02 - Hypoxemia SNOMED: 5440027, 817627895 (3) Transaminitis ICD Codes: R74.0 - Nonspecific elevation of levels of transaminase and lactic acid dehydrogenase [LDH] SNOMED: 617102734, 291357887 (4) Alcohol withdrawal ICD Codes: F10.239 - Alcohol dependence with withdrawal, unspecified SNOMED: 050099720 (5) Pancreatitis ICD Codes: K85.90 - Acute pancreatitis without necrosis or infection, unspecified SNOMED: 55744587 Status: unchanged Assessment/Plan Supportie care Elevate HOB correct electrolytes monitor H&H, prn transfusions fu labs Subjective Allergies: Coded Allergies: No Known Allergies (Unverified , 06/15/17) Subjective no events overnight tolerating TF non communicative Objective Last 24 Hour Vital Signs Date Time Temp Pulse Resp B/P (MAP) Pulse Ox O2 Delivery O2 Flow Rate FiO2 07/08/17 12:00 98.5 87 18 142/96 94 Venturi Mask 8.0 40 07/08/17 12:00 102 07/08/17 08:51 150/100 07/08/17 08:00 109 07/08/17 08:00 98.3 99 19 150/100 99 Venturi Mask 8.0 40 07/08/17 06:14 98 Venturi Mask 8.0 40 07/08/17 06:14 Venturi Mask 8.0 40 07/08/17 04:00 97 07/08/17 04:00 98.7 112 22 160/110 98 Venturi Mask 40 07/08/17 00:00 98.4 119 22 140/101 98 Venturi Mask 40 07/08/17 00:00 106 07/07/17 20:04 156/106 07/07/17 20:00 89 07/07/17 20:00 98.2 109 24 156/106 97 Venturi Mask 40 Intake and Output 07/07/17 07/08/17 19:00 07:00 Intake Total 1955 ml 905 ml Output Total 1000 ml 850 ml Balance 955 ml 55 ml Free Water 800 ml IV Total 955 ml 435 ml Tube Feeding 200 ml 470 ml Output Urine Total 850 ml 850 ml Stool Total 150 ml # Bowel Movements 200 250 Laboratory Tests 07/07/17 17:36: Arterial Blood pH 7.495H, Arterial Blood Partial Pressure CO2 40.5, Arterial Blood Partial Pressure O2 91.8, Arterial Blood HCO3 30.5H, Arterial Blood Oxygen Saturation 96.6, Arterial Blood Base Excess 6.7, Juanito Test Positive 07/08/17 03:55: White Blood Count 13.6H, Red Blood Count 3.31L, Hemoglobin 10.5L, Hematocrit 33.1L, Mean Corpuscular Volume 100H, Mean Corpuscular Hemoglobin 31.7H, Mean Corpuscular Hemoglobin Concent 31.7L, Red Cell Distribution Width 12.1, Platelet Count 254, Mean Platelet Volume 8.1, Neutrophils (%) (Auto) 72.2, Lymphocytes (%) (Auto) 14.3L, Monocytes (%) (Auto) 7.1, Eosinophils (%) (Auto) 5.6H, Basophils (%) (Auto) 0.8, Sodium Level 158H, Potassium Level 3.4L, Chloride Level 118H, Carbon Dioxide Level 34H, Anion Gap 7, Blood Urea Nitrogen 50H, Creatinine 1.5H, Estimat Glomerular Filtration Rate > 60, Glucose Level 205H, Calcium Level 9.4 Height (Feet): 5 Height (Inches): 6.00 Weight (Pounds): 123 Objective Thin AA man NCAT supple CTA RR soft NT ND no edema DARIELA NAVA Jul 08, 2017 16:21
[2017-07-08] MEDS ORDERED: Tubing IV Secondary IV ONE (16:24)
[2017-07-08] MEDS ORDERED: Sterile Water Irrig 1000ml IRRIG ONE (16:24)
[2017-07-08 20:00] VITALS: BP 150/101
[2017-07-08] MEDS: Acetaminophen 650mg/20.3ml NG PRN (20:09)
--- NOTE | 2017-07-08 20:17 | Nephrology Progress Note ---
Assessment/Plan Problem List: (1) Hypernatremia (2) Hypokalemia Assessment: corrected (3) Fever (4) Acidosis (5) Respiratory distress (6) Pancreatitis (7) Elevated troponin (8) Alcohol withdrawal (9) Pneumonia (10) Sepsis (11) Cardiopulmonary arrest (12) Metabolic acidosis (13) DKA (diabetic ketoacidosis) Plan Continue current treatment plan D5W @ 75cc/hr Accu-check q4h Continue free water flushes Monitor temp Suspect diffuse cerebral anoxia and edema with decorticate rigidity per Dr Cano. Monitor lytes, correct prn Monitor neuro status, f/u with neurology rec Continue NG tube feeding and IVF Pending PEG placement Strict glycemic control Abx per ID Monitor intake and output Free water flush Continue pauline Subjective ROS Limited/Unobtainable: Yes Subjective Seen in MARIE, on non venturi mask,unresponsive, has a low grade fever Objective Objective Last 24 Hour Vital Signs Date Time Temp Pulse Resp B/P (MAP) Pulse Ox O2 Delivery O2 Flow Rate FiO2 07/08/17 19:55 Non-Rebreather 15.0 100 07/08/17 19:55 92 Non-Rebreather 15.0 100 07/08/17 19:54 150/100 07/08/17 16:00 98.9 111 19 144/92 95 Venturi Mask 8.0 40 07/08/17 16:00 97 07/08/17 12:00 98.5 87 18 142/96 94 Venturi Mask 8.0 40 07/08/17 12:00 102 07/08/17 08:51 150/100 07/08/17 08:00 109 07/08/17 08:00 98.3 99 19 150/100 99 Venturi Mask 8.0 40 07/08/17 06:14 98 Venturi Mask 8.0 40 07/08/17 06:14 Venturi Mask 8.0 40 07/08/17 04:00 97 07/08/17 04:00 98.7 112 22 160/110 98 Venturi Mask 40 07/08/17 00:00 98.4 119 22 140/101 98 Venturi Mask 40 07/08/17 00:00 106 Intake and Output 07/07/17 07/08/17 19:00 07:00 Intake Total 1955 ml 955 ml Output Total 1000 ml 850 ml Balance 955 ml 105 ml Free Water 800 ml IV Total 955 ml 435 ml Tube Feeding 200 ml 520 ml Output Urine Total 850 ml 850 ml Stool Total 150 ml # Bowel Movements 200 250 Laboratory Tests 07/08/17 03:55: White Blood Count 13.6H, Red Blood Count 3.31L, Hemoglobin 10.5L, Hematocrit 33.1L, Mean Corpuscular Volume 100H, Mean Corpuscular Hemoglobin 31.7H, Mean Corpuscular Hemoglobin Concent 31.7L, Red Cell Distribution Width 12.1, Platelet Count 254, Mean Platelet Volume 8.1, Neutrophils (%) (Auto) 72.2, Lymphocytes (%) (Auto) 14.3L, Monocytes (%) (Auto) 7.1, Eosinophils (%) (Auto) 5.6H, Basophils (%) (Auto) 0.8, Sodium Level 158H, Potassium Level 3.4L, Chloride Level 118H, Carbon Dioxide Level 34H, Anion Gap 7, Blood Urea Nitrogen 50H, Creatinine 1.5H, Estimat Glomerular Filtration Rate > 60, Glucose Level 205H, Calcium Level 9.4 Height (Feet): 5 Height (Inches): 6.00 Weight (Pounds): 123 General Appearance: no apparent distress Neck: stiff neck Cardiovascular: normal rate Respiratory/Chest: decreased breath sounds, other - On venturi mask Abdomen: soft Genitourinary/Rectal: other - carpenter Extremities: trace edema Neurologic: unresponsive Hannah Johnson N.P. Jul 08, 2017 20:17
[2017-07-09] VITALS: BP 147/96
[2017-07-09] MEDS: NovoLOG Insulin Flexpen SUBQ SCH ×6 (03:37→23:35)
[2017-07-09 04:00] VITALS: BP 140/83
[2017-07-09 04:24] LABS: BASOPHILS % (AUTO) 0.3 % (0.0-2.0); EOSINOPHILS % (AUTO) 5.4 % (0.0-3.0); HEMATOCRIT 30.2 % (42.0-52.0); HEMOGLOBIN 9.6 G/DL (14.2-18.0); MEAN CORPUSCULAR VOLUME 99 FL (80-99); MONOCYTES % (AUTO) 6.5 % (1.0-10.0); NEUTROPHILS % (AUTO) 76.8 % (45.0-75.0); PLATELET COUNT 287 K/UL (150-450); RED BLOOD COUNT 3.05 M/UL (4.70-6.10); RED CELL DISTRIBUTION WIDTH 11.8 % (11.6-14.8); WHITE BLOOD COUNT 16.4 K/UL (4.8-10.8)
[2017-07-09] MEDS: D5W w/KCl 20mEq 1,000 ML IV SCH ×2 (04:28→17:48)
[2017-07-09 04:31] LABS: ANION GAP 8 mmol/L (5-15); BLOOD UREA NITROGEN 40 mg/dL (7-18); CALCIUM 8.6 MG/DL (8.5-10.1); CARBON DIOXIDE 33 MMOL/L (21-32); CHLORIDE 113 MMOL/L (98-107); CREATININE 1.2 MG/DL (0.55-1.30); POTASSIUM 3.4 MMOL/L (3.5-5.1); SODIUM 153 MMOL/L (136-145)
[2017-07-09] MEDS: cefTAZidime 1gm/D5W 55ml IV SCH ×6 (05:45→21:51)
[2017-07-09 08:00] VITALS: BP 148/98
[2017-07-09] MEDS: Levemir Flexpen SUBQ SCH ×2 (08:52→20:38)
[2017-07-09] MEDS: Losartan 50mg tab NG SCH ×2 (08:53→20:36)
--- NOTE | 2017-07-09 10:15 | Cardiac Electrophysiology PN ---
Assessment/Plan Assessment/Plan 1. Troponin leak due to renal failure with creatinine of 3.5. EF60% 2. Tachycardia due to diabetic ketoacidosis and sepsis. 3. Respiratory failure . S/P Terminal extubation. Full code again.On Face mask 4. Pneumonia on abx per Dr. Cummings 5. Pancreatitis. 6. ARF 7. Marijuana use. 8. Suspect diffuse cerebral anoxia and edema with decorticate rigidity per Dr Cano. 9. Alcohol withdrawal. 10. Severe Hypernatremia. Na 165, improved to 153. 11. Full code. 12. Dysphagia. NG tube is in. PEG when more stable from respiratory stand point DW RN Subjective Subjective On MARIE, on iv Abx with NG feeding ongoing with face mask.Opens eyes but unrsesponsive Objective Last 24 Hour Vital Signs Date Time Temp Pulse Resp B/P (MAP) Pulse Ox O2 Delivery O2 Flow Rate FiO2 07/09/17 08:53 145/92 07/09/17 08:00 98.0 100 18 148/98 100 Non-Rebreather 100 07/09/17 07:34 108 07/09/17 04:00 106 07/09/17 04:00 98.0 100 19 140/83 100 Non-Rebreather 15.0 07/09/17 00:00 96 07/09/17 00:00 98.1 100 19 147/96 99 Non-Rebreather 15.0 07/08/17 20:39 98.1 07/08/17 20:00 111 07/08/17 20:00 100.0 105 19 150/101 95 Non-Rebreather 15.0 07/08/17 19:55 Non-Rebreather 15.0 100 07/08/17 19:55 92 Non-Rebreather 15.0 100 07/08/17 19:54 150/100 07/08/17 16:00 98.9 111 19 144/92 95 Venturi Mask 8.0 40 07/08/17 16:00 97 07/08/17 12:00 98.5 87 18 142/96 94 Venturi Mask 8.0 40 07/08/17 12:00 102 Intake and Output 07/08/17 07/09/17 19:00 07:00 Intake Total 1953.75 ml 1550 ml Output Total 2600 ml 710 ml Balance -646.25 ml 840 ml Free Water 400 ml 200 ml IV Total 953.75 ml 900 ml Tube Feeding 600 ml 450 ml Output Urine Total 2600 ml 650 ml Stool Total 60 ml # Bowel Movements 150 Laboratory Tests Test 07/09/17 03:40 White Blood Count 16.4 K/UL (4.8-10.8) H Red Blood Count 3.05 M/UL (4.70-6.10) L Hemoglobin 9.6 G/DL (14.2-18.0) L Hematocrit 30.2 % (42.0-52.0) L Mean Corpuscular Volume 99 FL (80-99) Mean Corpuscular Hemoglobin 31.5 PG (27.0-31.0) H Mean Corpuscular Hemoglobin Concent 31.8 G/DL (32.0-36.0) L Red Cell Distribution Width 11.8 % (11.6-14.8) Platelet Count 287 K/UL (150-450) Mean Platelet Volume 8.7 FL (6.5-10.1) Neutrophils (%) (Auto) 76.8 % (45.0-75.0) H Lymphocytes (%) (Auto) 11.0 % (20.0-45.0) L Monocytes (%) (Auto) 6.5 % (1.0-10.0) Eosinophils (%) (Auto) 5.4 % (0.0-3.0) H Basophils (%) (Auto) 0.3 % (0.0-2.0) Sodium Level 153 MMOL/L (136-145) H Potassium Level 3.4 MMOL/L (3.5-5.1) L Chloride Level 113 MMOL/L (98-107) H Carbon Dioxide Level 33 MMOL/L (21-32) H Anion Gap 8 mmol/L (5-15) Blood Urea Nitrogen 40 mg/dL (7-18) H Creatinine 1.2 MG/DL (0.55-1.30) Estimat Glomerular Filtration Rate > 60 mL/min (>60) Glucose Level 164 MG/DL (74-106) H Calcium Level 8.6 MG/DL (8.5-10.1) Microbiology Date/Time Source Procedure Growth Status 07/07/17 17:11 Blood Blood Culture - Preliminary NO GROWTH AFTER 24 HOURS Resulted 07/07/17 17:00 Blood Blood Culture - Preliminary NO GROWTH AFTER 24 HOURS Resulted 07/07/17 14:15 Stool Clostridium difficile Toxin Assay - Final Complete Objective HEAD AND NECK: No JVD.oxygen mask is on. NG tube in. LUNGS: Clear. CARDIOVASCULAR: Regular S1 and S2 with no gallop or murmur. ABDOMEN: Soft and nontender. EXTREMITIES: No pitting edema. ALBERT ROWAN Jul 09, 2017 10:15
--- NOTE | 2017-07-09 10:40 | GI Progress Note ---
Assessment/Plan Problems: (1) Shock liver ICD Codes: K72.00 - Acute and subacute hepatic failure without coma SNOMED: 317546003 (2) Anoxic cerebral edema ICD Codes: G93.6 - Cerebral edema; R09.02 - Hypoxemia SNOMED: 9182333, 879011524 (3) Transaminitis ICD Codes: R74.0 - Nonspecific elevation of levels of transaminase and lactic acid dehydrogenase [LDH] SNOMED: 499717570, 536487744 (4) Alcohol withdrawal ICD Codes: F10.239 - Alcohol dependence with withdrawal, unspecified SNOMED: 689465545 (5) Pancreatitis ICD Codes: K85.90 - Acute pancreatitis without necrosis or infection, unspecified SNOMED: 55303851 Status: unchanged Status Narrative Discussed with Dr. Rico. Assessment/Plan will schedule PEG once respiratory status stable >> patient now on non rebreather - consent obtained. cont NGTFs electrolyte correction >> increase NGTF free water flushes fu labs Subjective Subjective limited Objective Last 24 Hour Vital Signs Date Time Temp Pulse Resp B/P (MAP) Pulse Ox O2 Delivery O2 Flow Rate FiO2 07/09/17 08:53 145/92 07/09/17 08:00 98.0 100 18 148/98 100 Non-Rebreather 100 07/09/17 07:34 108 07/09/17 04:00 106 07/09/17 04:00 98.0 100 19 140/83 100 Non-Rebreather 15.0 07/09/17 00:00 96 07/09/17 00:00 98.1 100 19 147/96 99 Non-Rebreather 15.0 07/08/17 20:39 98.1 07/08/17 20:00 111 07/08/17 20:00 100.0 105 19 150/101 95 Non-Rebreather 15.0 07/08/17 19:55 Non-Rebreather 15.0 100 07/08/17 19:55 92 Non-Rebreather 15.0 100 07/08/17 19:54 150/100 07/08/17 16:00 98.9 111 19 144/92 95 Venturi Mask 8.0 40 07/08/17 16:00 97 07/08/17 12:00 98.5 87 18 142/96 94 Venturi Mask 8.0 40 07/08/17 12:00 102 Intake and Output 07/08/17 07/09/17 19:00 07:00 Intake Total 1953.75 ml 1550 ml Output Total 2600 ml 710 ml Balance -646.25 ml 840 ml Free Water 400 ml 200 ml IV Total 953.75 ml 900 ml Tube Feeding 600 ml 450 ml Output Urine Total 2600 ml 650 ml Stool Total 60 ml # Bowel Movements 150 Laboratory Tests Test 07/09/17 03:40 White Blood Count 16.4 K/UL (4.8-10.8) H Red Blood Count 3.05 M/UL (4.70-6.10) L Hemoglobin 9.6 G/DL (14.2-18.0) L Hematocrit 30.2 % (42.0-52.0) L Mean Corpuscular Volume 99 FL (80-99) Mean Corpuscular Hemoglobin 31.5 PG (27.0-31.0) H Mean Corpuscular Hemoglobin Concent 31.8 G/DL (32.0-36.0) L Red Cell Distribution Width 11.8 % (11.6-14.8) Platelet Count 287 K/UL (150-450) Mean Platelet Volume 8.7 FL (6.5-10.1) Neutrophils (%) (Auto) 76.8 % (45.0-75.0) H Lymphocytes (%) (Auto) 11.0 % (20.0-45.0) L Monocytes (%) (Auto) 6.5 % (1.0-10.0) Eosinophils (%) (Auto) 5.4 % (0.0-3.0) H Basophils (%) (Auto) 0.3 % (0.0-2.0) Sodium Level 153 MMOL/L (136-145) H Potassium Level 3.4 MMOL/L (3.5-5.1) L Chloride Level 113 MMOL/L (98-107) H Carbon Dioxide Level 33 MMOL/L (21-32) H Anion Gap 8 mmol/L (5-15) Blood Urea Nitrogen 40 mg/dL (7-18) H Creatinine 1.2 MG/DL (0.55-1.30) Estimat Glomerular Filtration Rate > 60 mL/min (>60) Glucose Level 164 MG/DL (74-106) H Calcium Level 8.6 MG/DL (8.5-10.1) Height (Feet): 5 Height (Inches): 6.00 Weight (Pounds): 123 General Appearance: lethargic Cardiovascular: normal rate Respiratory/Chest: respiratory distress - non rebreather Abdominal Exam: soft, other - NGT Lashawn Mason N.P. Jul 09, 2017 10:40
[2017-07-09 12:00] VITALS: BP 143/93
--- NOTE | 2017-07-09 14:16 | Infectious Diseases Prog Note ---
Assessment/Plan Problems: (1) Pneumonia Assessment & Plan: due to Acinetobacter baumannii , on ceftazidime to treat for two weeks , EOT 07/18/16, monitor CXR (2) Pancreatitis Assessment & Plan: improved , monitor lipase, GI is following, restarted on tube feeding (3) Cardiopulmonary arrest Assessment & Plan: was extubated from mechanical ventilation , as per family request and made DNR and started on morphin drip, but family changed his code status to full code , he is on tele monitor , cardiology is following , may need tracheostomy and PEG placement . (4) Anoxic cerebral edema Assessment & Plan: with no improvement, has poor prognosis , no tracheostomy , or PEG tube placement as per family , now full code as per family request , but postural and spastic and unresponsive . (5) Dysphagia Assessment & Plan: he will need permanent tube feeding for nutritional support , if family wants to proceed with full support (6) Hypernatremia Assessment & Plan: recommend hydration with free water , to bring his sodium down slowly (7) Leukocytosis Assessment & Plan: suspect dehydration related, repeated CXR didn't show any new infiltrates, and C diff toxin is negative Subjective ROS Limited/Unobtainable: Yes Allergies: Coded Allergies: No Known Allergies (Unverified , 06/15/17) Subjective he is still unresponsive , on high flow oxygen via mask, in MARIE , postural and spastic in the lower extremities , dosen't follow commands , afebrile .opens eyes spontaneously on/off . dosen't track Objective Vital Signs Last 24 Hour Vital Signs Date Time Temp Pulse Resp B/P (MAP) Pulse Ox O2 Delivery O2 Flow Rate FiO2 07/09/17 12:00 98.4 109 32 143/93 98 Non-Rebreather 100 07/09/17 11:51 111 07/09/17 08:53 145/92 07/09/17 08:00 98.0 100 18 148/98 100 Non-Rebreather 100 07/09/17 07:34 108 07/09/17 04:00 106 07/09/17 04:00 98.0 100 19 140/83 100 Non-Rebreather 15.0 07/09/17 00:00 96 07/09/17 00:00 98.1 100 19 147/96 99 Non-Rebreather 15.0 07/08/17 20:39 98.1 07/08/17 20:00 111 07/08/17 20:00 100.0 105 19 150/101 95 Non-Rebreather 15.0 07/08/17 19:55 Non-Rebreather 15.0 100 07/08/17 19:55 92 Non-Rebreather 15.0 100 07/08/17 19:54 150/100 07/08/17 16:00 98.9 111 19 144/92 95 Venturi Mask 8.0 40 07/08/17 16:00 97 Height (Feet): 5 Height (Inches): 6.00 Weight (Pounds): 123 General Appearance: WD/WN, no acute distress, cachetic, other - postural HEENT: normocephalic, atraumatic, anicteric, mucous membranes moist, PERRL Respiratory/Chest: chest wall non-tender, no respiratory distress, no accessory muscle use, decreased breath sounds, expiratory wheezing Cardiovascular: normal peripheral pulses, normal rate, regular rhythm, no gallop/murmur, no JVD Abdomen: soft, non tender, no organomegaly, non distended, no mass, hypoactive bowel sounds Extremities: no cyanosis, no clubbing Skin: no rash, no lesions, ulcers Neurologic/Psychiatric: unresponsiveness Microbiology Date/Time Source Procedure Growth Status 07/07/17 17:11 Blood Blood Culture - Preliminary NO GROWTH AFTER 24 HOURS Resulted 07/07/17 17:00 Blood Blood Culture - Preliminary NO GROWTH AFTER 24 HOURS Resulted 07/07/17 14:15 Stool Clostridium difficile Toxin Assay - Final Complete Laboratory Tests Test 07/09/17 03:40 White Blood Count 16.4 K/UL (4.8-10.8) H Red Blood Count 3.05 M/UL (4.70-6.10) L Hemoglobin 9.6 G/DL (14.2-18.0) L Hematocrit 30.2 % (42.0-52.0) L Mean Corpuscular Volume 99 FL (80-99) Mean Corpuscular Hemoglobin 31.5 PG (27.0-31.0) H Mean Corpuscular Hemoglobin Concent 31.8 G/DL (32.0-36.0) L Red Cell Distribution Width 11.8 % (11.6-14.8) Platelet Count 287 K/UL (150-450) Mean Platelet Volume 8.7 FL (6.5-10.1) Neutrophils (%) (Auto) 76.8 % (45.0-75.0) H Lymphocytes (%) (Auto) 11.0 % (20.0-45.0) L Monocytes (%) (Auto) 6.5 % (1.0-10.0) Eosinophils (%) (Auto) 5.4 % (0.0-3.0) H Basophils (%) (Auto) 0.3 % (0.0-2.0) Sodium Level 153 MMOL/L (136-145) H Potassium Level 3.4 MMOL/L (3.5-5.1) L Chloride Level 113 MMOL/L (98-107) H Carbon Dioxide Level 33 MMOL/L (21-32) H Anion Gap 8 mmol/L (5-15) Blood Urea Nitrogen 40 mg/dL (7-18) H Creatinine 1.2 MG/DL (0.55-1.30) Estimat Glomerular Filtration Rate > 60 mL/min (>60) Glucose Level 164 MG/DL (74-106) H Calcium Level 8.6 MG/DL (8.5-10.1) Current Medications Medications (Trade) Dose Ordered Sig/Conrado Route PRN Reason Start Time Stop Time Status Last Admin Dose Admin Acetaminophen (Tylenol) 500 mg Q6HR PRN NG Mild Pain/Temp > 100.5 07/01/17 02:45 07/31/17 02:44 07/08/17 20:09 Ceftazidime 1 gm/ Dextrose 55 ml @ 110 mls/hr Q8HR IV 07/04/17 12:00 07/11/17 11:59 07/09/17 13:07 Dextrose (Dextrose 50%) STAT PRN IV Hypoglycemia 07/01/17 22:30 07/29/17 22:29 Dextrose/ Electrolytes 1,000 ml @ 75 mls/hr [id number] IV 07/08/17 15:00 08/07/17 14:59 07/09/17 04:28 Insulin Aspart (NovoLOG) Q4H SUBQ 07/06/17 19:30 08/05/17 19:29 07/09/17 11:30 Insulin Detemir (Levemir) 25 units Q12HR SUBQ 07/04/17 21:00 08/03/17 20:59 07/09/17 08:52 Losartan Potassium (Cozaar) 50 mg EVERY 12 HOURS NG 07/07/17 21:00 08/06/17 20:59 07/09/17 08:53 Saad Cummings M.D. Jul 09, 2017 14:16
[2017-07-09] MEDS ORDERED: Sterile Water Irrig 1000ml IRRIG ONE (15:46)
[2017-07-09] MEDS ORDERED: D5 1/2NS 1000ml IV ONE (15:46)
[2017-07-09] MEDS ORDERED: NS 500ML ONE (15:46)
[2017-07-09 16:00] VITALS: BP 138/91
--- NOTE | 2017-07-09 18:14 | Nephrology Progress Note ---
Assessment/Plan Problem List: (1) Hypernatremia (2) Hypokalemia Assessment: corrected (3) Fever (4) Acidosis (5) Respiratory distress (6) Pancreatitis (7) Elevated troponin (8) Alcohol withdrawal (9) Pneumonia (10) Sepsis (11) Cardiopulmonary arrest (12) Metabolic acidosis (13) DKA (diabetic ketoacidosis) Plan Continue current treatment plan D5W+KCL@ 75cc/hr Accu-check q4h Continue free water flushes Monitor temp Suspect diffuse cerebral anoxia and edema with decorticate rigidity per Dr Cano. Monitor lytes, correct prn Monitor neuro status, f/u with neurology rec Continue NG tube feeding and IVF Pending PEG placement Strict glycemic control Monitor renal function on current abx Abx per ID Monitor intake and output Free water flush Continue pauline Subjective ROS Limited/Unobtainable: Yes Subjective Seen in MARIE, on non venturi mask,unresponsive, on venturi mask Objective Objective Last 24 Hour Vital Signs Date Time Temp Pulse Resp B/P (MAP) Pulse Ox O2 Delivery O2 Flow Rate FiO2 07/09/17 16:00 98.6 104 22 138/91 97 Non-Rebreather 100 07/09/17 16:00 104 07/09/17 12:00 98.4 109 32 143/93 98 Non-Rebreather 100 07/09/17 11:51 111 07/09/17 08:53 145/92 07/09/17 08:00 98.0 100 18 148/98 100 Non-Rebreather 100 07/09/17 07:34 108 07/09/17 04:00 106 07/09/17 04:00 98.0 100 19 140/83 100 Non-Rebreather 15.0 07/09/17 00:00 96 07/09/17 00:00 98.1 100 19 147/96 99 Non-Rebreather 15.0 07/08/17 20:39 98.1 07/08/17 20:00 111 07/08/17 20:00 100.0 105 19 150/101 95 Non-Rebreather 15.0 07/08/17 19:55 Non-Rebreather 15.0 100 07/08/17 19:55 92 Non-Rebreather 15.0 100 07/08/17 19:54 150/100 Intake and Output 07/08/17 07/09/17 19:00 07:00 Intake Total 1953.75 ml 1625 ml Output Total 2600 ml 710 ml Balance -646.25 ml 915 ml Free Water 400 ml 200 ml IV Total 953.75 ml 975 ml Tube Feeding 600 ml 450 ml Output Urine Total 2600 ml 650 ml Stool Total 60 ml # Bowel Movements 150 Laboratory Tests 07/09/17 03:40: White Blood Count 16.4H, Red Blood Count 3.05L, Hemoglobin 9.6L, Hematocrit 30.2L, Mean Corpuscular Volume 99, Mean Corpuscular Hemoglobin 31.5H, Mean Corpuscular Hemoglobin Concent 31.8L, Red Cell Distribution Width 11.8, Platelet Count 287, Mean Platelet Volume 8.7, Neutrophils (%) (Auto) 76.8H, Lymphocytes (%) (Auto) 11.0L, Monocytes (%) (Auto) 6.5, Eosinophils (%) (Auto) 5.4H, Basophils (%) (Auto) 0.3, Sodium Level 153H, Potassium Level 3.4L, Chloride Level 113H, Carbon Dioxide Level 33H, Anion Gap 8, Blood Urea Nitrogen 40H, Creatinine 1.2, Estimat Glomerular Filtration Rate > 60, Glucose Level 164H , Calcium Level 8.6 Height (Feet): 5 Height (Inches): 6.00 Weight (Pounds): 123 General Appearance: mild distress EENT: other Neck: stiff neck Cardiovascular: tachycardia Respiratory/Chest: decreased breath sounds, crackles/rales Abdomen: soft Genitourinary/Rectal: other - carpenter Extremities: moderate edema Neurologic: unresponsive Hannah Johnson N.P. Jul 09, 2017 18:14
[2017-07-09 20:00] VITALS: BP 142/98
--- NOTE | 2017-07-09 21:02 | General Progress Note ---
Assessment/Plan Problem List: (1) DKA (diabetic ketoacidosis) ICD Codes: E13.10 - Other specified diabetes mellitus with ketoacidosis without coma SNOMED: 68743529, 100548998 Qualifiers: Qualified Codes: E10.11 - Type 1 diabetes mellitus with ketoacidosis with coma (2) Metabolic acidosis ICD Codes: E87.2 - Acidosis SNOMED: 67045691 (3) Cardiopulmonary arrest ICD Codes: I46.9 - Cardiac arrest, cause unspecified SNOMED: 474930585 Assessment/Plan continue Levemir 25 units bid continue NISS TF is on Subjective ROS Limited/Unobtainable: Yes Allergies: Coded Allergies: No Known Allergies (Unverified , 06/15/17) Subjective events noted Objective Last 24 Hour Vital Signs Date Time Temp Pulse Resp B/P (MAP) Pulse Ox O2 Delivery O2 Flow Rate FiO2 07/09/17 20:36 139/99 07/09/17 16:00 98.6 104 22 138/91 97 Non-Rebreather 100 07/09/17 16:00 104 07/09/17 12:00 98.4 109 32 143/93 98 Non-Rebreather 100 07/09/17 11:51 111 07/09/17 08:53 145/92 07/09/17 08:00 98.0 100 18 148/98 100 Non-Rebreather 100 07/09/17 07:34 108 07/09/17 04:00 106 07/09/17 04:00 98.0 100 19 140/83 100 Non-Rebreather 15.0 07/09/17 00:00 96 07/09/17 00:00 98.1 100 19 147/96 99 Non-Rebreather 15.0 Intake and Output 07/08/17 07/09/17 19:00 07:00 Intake Total 1953.75 ml 1625 ml Output Total 2600 ml 710 ml Balance -646.25 ml 915 ml Free Water 400 ml 200 ml IV Total 953.75 ml 975 ml Tube Feeding 600 ml 450 ml Output Urine Total 2600 ml 650 ml Stool Total 60 ml # Bowel Movements 150 Laboratory Tests 07/09/17 03:40: White Blood Count 16.4H, Red Blood Count 3.05L, Hemoglobin 9.6L, Hematocrit 30.2L, Mean Corpuscular Volume 99, Mean Corpuscular Hemoglobin 31.5H, Mean Corpuscular Hemoglobin Concent 31.8L, Red Cell Distribution Width 11.8, Platelet Count 287, Mean Platelet Volume 8.7, Neutrophils (%) (Auto) 76.8H, Lymphocytes (%) (Auto) 11.0L, Monocytes (%) (Auto) 6.5, Eosinophils (%) (Auto) 5.4H, Basophils (%) (Auto) 0.3, Sodium Level 153H, Potassium Level 3.4L, Chloride Level 113H, Carbon Dioxide Level 33H, Anion Gap 8, Blood Urea Nitrogen 40H, Creatinine 1.2, Estimat Glomerular Filtration Rate > 60, Glucose Level 164H , Calcium Level 8.6 Height (Feet): 5 Height (Inches): 6.00 Weight (Pounds): 123 Neck: normal alignment Cardiovascular: normal rate Respiratory/Chest: lungs clear Objective Item Value Date Time Bedside Blood Glucose 251 mg/dl H 07/09/178 Bedside Blood Glucose 212 mg/dl H 07/09/17 1525 Bedside Blood Glucose 228 mg/dl H 07/09/17 1130 Bedside Blood Glucose 183 mg/dl H 07/09/17 0852 Bedside Blood Glucose 145 mg/dl H 07/09/17 0337 JADIEL MARCANO Jul 09, 2017 21:02
[2017-07-10] VITALS: BP 142/93
[2017-07-10] MEDS: NovoLOG Insulin Flexpen SUBQ SCH ×6 (03:41→23:16)
[2017-07-10 04:00] VITALS: BP 154/106
[2017-07-10 05:49] LABS: BASOPHILS % (AUTO) 0.5 % (0.0-2.0); EOSINOPHILS % (AUTO) 4.8 % (0.0-3.0); HEMATOCRIT 30.9 % (42.0-52.0); HEMOGLOBIN 9.9 G/DL (14.2-18.0); LYMPHOCYTES % (AUTO) 11.6 % (20.0-45.0); MEAN CORPUSCULAR VOLUME 98 FL (80-99); NEUTROPHILS % (AUTO) 76.1 % (45.0-75.0); PLATELET COUNT 269 K/UL (150-450); RED BLOOD COUNT 3.16 M/UL (4.70-6.10); RED CELL DISTRIBUTION WIDTH 11.4 % (11.6-14.8)
[2017-07-10] MEDS: cefTAZidime 1gm/D5W 55ml IV SCH ×6 (06:00→21:43)
[2017-07-10 06:18] LABS: ANION GAP 6 mmol/L (5-15); BLOOD UREA NITROGEN 31 mg/dL (7-18); CALCIUM 8.8 MG/DL (8.5-10.1); CARBON DIOXIDE 32 MMOL/L (21-32); CHLORIDE 110 MMOL/L (98-107); POTASSIUM 3.9 MMOL/L (3.5-5.1); SODIUM 148 MMOL/L (136-145)
[2017-07-10] MEDS: D5W w/KCl 20mEq 1,000 ML IV SCH ×2 (07:00→19:59)
[2017-07-10 08:00] VITALS: BP 137/91
[2017-07-10] MEDS: Losartan 50mg tab NG SCH ×2 (08:21→20:58)
[2017-07-10] MEDS: Levemir Flexpen SUBQ SCH ×2 (08:23→21:00)
--- NOTE | 2017-07-10 09:00 | General Progress Note ---
Assessment/Plan Problem List: (1) DKA (diabetic ketoacidosis) ICD Codes: E13.10 - Other specified diabetes mellitus with ketoacidosis without coma SNOMED: 75706293, 128708411 Qualifiers: Qualified Codes: E10.11 - Type 1 diabetes mellitus with ketoacidosis with coma (2) Metabolic acidosis ICD Codes: E87.2 - Acidosis SNOMED: 01701719 (3) Cardiopulmonary arrest ICD Codes: I46.9 - Cardiac arrest, cause unspecified SNOMED: 661978103 Assessment/Plan continue Levemir 25 units bid continue NISS TF is on Subjective ROS Limited/Unobtainable: Yes Allergies: Coded Allergies: No Known Allergies (Unverified , 06/15/17) Subjective events noted Objective Last 24 Hour Vital Signs Date Time Temp Pulse Resp B/P (MAP) Pulse Ox O2 Delivery O2 Flow Rate FiO2 07/10/17 08:21 137/91 07/10/17 08:00 98.0 98 22 137/91 100 Non-Rebreather 100 07/10/17 08:00 97 07/10/17 04:00 97.7 101 20 154/106 100 Non-Rebreather 100 07/10/17 04:00 97 07/10/17 00:00 106 07/10/17 00:00 98.4 110 20 142/93 98 Non-Rebreather 100 07/09/17 20:48 Non-Rebreather 15.0 100 07/09/17 20:48 99 Non-Rebreather 15.0 100 07/09/17 20:36 139/99 07/09/17 20:00 101 07/09/17 20:00 98.2 99 32 142/98 98 Non-Rebreather 100 07/09/17 16:00 98.6 104 22 138/91 97 Non-Rebreather 100 07/09/17 16:00 104 07/09/17 12:00 98.4 109 32 143/93 98 Non-Rebreather 100 07/09/17 11:51 111 Intake and Output 07/09/17 07/10/17 19:00 07:00 Intake Total 2135 ml 1915 ml Output Total 930 ml 350 ml Balance 1205 ml 1565 ml Free Water 400 ml 200 ml IV Total 955 ml 935 ml Tube Feeding 780 ml 780 ml Output Urine Total 900 ml 350 ml Stool Total 30 ml # Bowel Movements 60 200 Laboratory Tests 07/10/17 04:30: White Blood Count 14.0H, Red Blood Count 3.16L, Hemoglobin 9.9L, Hematocrit 30.9L, Mean Corpuscular Volume 98, Mean Corpuscular Hemoglobin 31.4H, Mean Corpuscular Hemoglobin Concent 32.1, Red Cell Distribution Width 11.4L, Platelet Count 269, Mean Platelet Volume 8.9, Neutrophils (%) (Auto) 76.1H, Lymphocytes (%) (Auto) 11.6L, Monocytes (%) (Auto) 7.0, Eosinophils (%) (Auto) 4.8H, Basophils (%) (Auto) 0.5, Sodium Level 148H, Potassium Level 3.9, Chloride Level 110H, Carbon Dioxide Level 32, Anion Gap 6, Blood Urea Nitrogen 31H, Creatinine 1.0, Estimat Glomerular Filtration Rate > 60, Glucose Level 109H , Calcium Level 8.8 Height (Feet): 5 Height (Inches): 6.00 Weight (Pounds): 123 Neck: normal alignment Cardiovascular: normal rate Abdomen: non tender Pelvis: normal external exam Objective Current Medications Medications (Trade) Dose Ordered Sig/Conrado Route PRN Reason Start Time Stop Time Status Last Admin Dose Admin Acetaminophen (Tylenol) 500 mg Q6HR PRN NG Mild Pain/Temp > 100.5 07/01/17 02:45 07/31/17 02:44 07/08/17 20:09 Ceftazidime 1 gm/ Dextrose 55 ml @ 110 mls/hr Q8HR IV 07/04/17 12:00 07/11/17 11:59 07/10/17 06:00 Dextrose (Dextrose 50%) STAT PRN IV Hypoglycemia 07/01/17 22:30 07/29/17 22:29 Dextrose/ Electrolytes 1,000 ml @ 75 mls/hr [id number] IV 07/08/17 15:00 08/07/17 14:59 07/10/17 07:00 Insulin Aspart (NovoLOG) Q4H SUBQ 07/06/17 19:30 08/05/17 19:29 07/10/17 07:34 Insulin Detemir (Levemir) 25 units Q12HR SUBQ 07/04/17 21:00 08/03/17 20:59 07/10/17 08:23 Losartan Potassium (Cozaar) 50 mg EVERY 12 HOURS NG 07/07/17 21:00 08/06/17 20:59 07/10/17 08:21 Item Value Date Time Bedside Blood Glucose 153 mg/dl H 07/10/17 0823 Bedside Blood Glucose 133 mg/dl H 07/10/17 0400 Bedside Blood Glucose 251 mg/dl H 07/10/17 0000 Bedside Blood Glucose 251 mg/dl H 07/09/17 2038 Bedside Blood Glucose 212 mg/dl H 07/09/17 1525 Bedside Blood Glucose 228 mg/dl H 07/09/17 1130 Bedside Blood Glucose 183 mg/dl H 07/09/17 0852 JADIEL MARCANO Jul 10, 2017 08:59
--- NOTE | 2017-07-10 10:12 | Pulmonology Progress Note ---
Assessment/Plan Assessment/Plan IMPRESSION: 1. Respiratory failure; extubated 2. Cannabis usage. 3. Diabetic ketoacidosis. 4. Troponin leak. 5. Tachycardia. 6. Anoxic brain injury DISCUSSION: Continue present management and care. now extubated Poor prognosis Remains on NRBM ABG adequate Asked to see due to persistent hypoxemia Will switch to ventimask Insert oral airway CXR clear Subjective Interval Events: None Constitutional: Reports: no symptoms Respiratory: Reports: no symptoms Cardiovascular: Reports: no symptoms Gastrointestinal/Abdominal: Reports: no symptoms Allergies: Coded Allergies: No Known Allergies (Unverified , 06/15/17) Objective Last 24 Hour Vital Signs Date Time Temp Pulse Resp B/P (MAP) Pulse Ox O2 Delivery O2 Flow Rate FiO2 07/10/17 08:21 137/91 07/10/17 08:00 98.0 98 22 137/91 100 Non-Rebreather 100 07/10/17 08:00 97 07/10/17 04:00 97.7 101 20 154/106 100 Non-Rebreather 100 07/10/17 04:00 97 07/10/17 00:00 106 07/10/17 00:00 98.4 110 20 142/93 98 Non-Rebreather 100 07/09/17 20:48 Non-Rebreather 15.0 100 07/09/17 20:48 99 Non-Rebreather 15.0 100 07/09/17 20:36 139/99 07/09/17 20:00 101 07/09/17 20:00 98.2 99 32 142/98 98 Non-Rebreather 100 07/09/17 16:00 98.6 104 22 138/91 97 Non-Rebreather 100 07/09/17 16:00 104 07/09/17 12:00 98.4 109 32 143/93 98 Non-Rebreather 100 07/09/17 11:51 111 Intake and Output 07/09/17 07/10/17 19:00 07:00 Intake Total 2135 ml 1915 ml Output Total 930 ml 350 ml Balance 1205 ml 1565 ml Free Water 400 ml 200 ml IV Total 955 ml 935 ml Tube Feeding 780 ml 780 ml Output Urine Total 900 ml 350 ml Stool Total 30 ml # Bowel Movements 60 200 General Appearance: no acute distress HEENT: normocephalic Respiratory/Chest: chest wall non-tender, lungs clear Cardiovascular: normal peripheral pulses, normal rate Microbiology Date/Time Source Procedure Growth Status 07/07/17 17:11 Blood Blood Culture - Preliminary NO GROWTH AFTER 48 HOURS Resulted 07/07/17 17:00 Blood Blood Culture - Preliminary NO GROWTH AFTER 48 HOURS Resulted 07/07/17 14:15 Stool Clostridium difficile Toxin Assay - Final Complete Laboratory Tests 07/10/17 04:30: White Blood Count 14.0H, Red Blood Count 3.16L, Hemoglobin 9.9L, Hematocrit 30.9L, Mean Corpuscular Volume 98, Mean Corpuscular Hemoglobin 31.4H, Mean Corpuscular Hemoglobin Concent 32.1, Red Cell Distribution Width 11.4L, Platelet Count 269, Mean Platelet Volume 8.9, Neutrophils (%) (Auto) 76.1H, Lymphocytes (%) (Auto) 11.6L, Monocytes (%) (Auto) 7.0, Eosinophils (%) (Auto) 4.8H, Basophils (%) (Auto) 0.5, Sodium Level 148H, Potassium Level 3.9, Chloride Level 110H, Carbon Dioxide Level 32, Anion Gap 6, Blood Urea Nitrogen 31H, Creatinine 1.0, Estimat Glomerular Filtration Rate > 60, Glucose Level 109H , Calcium Level 8.8 Current Medications Medications (Trade) Dose Ordered Sig/Conrado Route PRN Reason Start Time Stop Time Status Last Admin Dose Admin Acetaminophen (Tylenol) 500 mg Q6HR PRN NG Mild Pain/Temp > 100.5 07/01/17 02:45 07/31/17 02:44 07/08/17 20:09 Ceftazidime 1 gm/ Dextrose 55 ml @ 110 mls/hr Q8HR IV 07/04/17 12:00 07/11/17 11:59 07/10/17 06:00 Dextrose (Dextrose 50%) STAT PRN IV Hypoglycemia 07/01/17 22:30 07/29/17 22:29 Dextrose/ Electrolytes 1,000 ml @ 75 mls/hr [id number] IV 07/08/17 15:00 08/07/17 14:59 07/10/17 07:00 Insulin Aspart (NovoLOG) Q4H SUBQ 07/06/17 19:30 08/05/17 19:29 07/10/17 07:34 Insulin Detemir (Levemir) 25 units Q12HR SUBQ 07/04/17 21:00 08/03/17 20:59 07/10/17 08:23 Losartan Potassium (Cozaar) 50 mg EVERY 12 HOURS NG 07/07/17 21:00 08/06/17 20:59 07/10/17 08:21 Paulo Floyd MD Jul 10, 2017 10:11
--- NOTE | 2017-07-10 10:19 | GI Progress Note ---
Assessment/Plan Problems: (1) Shock liver ICD Codes: K72.00 - Acute and subacute hepatic failure without coma SNOMED: 391855195 (2) Anoxic cerebral edema ICD Codes: G93.6 - Cerebral edema; R09.02 - Hypoxemia SNOMED: 2064037, 352337896 (3) Transaminitis ICD Codes: R74.0 - Nonspecific elevation of levels of transaminase and lactic acid dehydrogenase [LDH] SNOMED: 300158129, 259672173 (4) Alcohol withdrawal ICD Codes: F10.239 - Alcohol dependence with withdrawal, unspecified SNOMED: 972002021 (5) Pancreatitis ICD Codes: K85.90 - Acute pancreatitis without necrosis or infection, unspecified SNOMED: 46848267 Status: unchanged Status Narrative Discussed with Dr. Rico. Assessment/Plan will schedule PEG once respiratory status stable >> patient now on non rebreather - consent obtained. cont NGTFs electrolyte correction >> increase NGTF free water flushes fu labs Subjective Subjective limited Objective Last 24 Hour Vital Signs Date Time Temp Pulse Resp B/P (MAP) Pulse Ox O2 Delivery O2 Flow Rate FiO2 07/10/17 08:21 137/91 07/10/17 08:00 98.0 98 22 137/91 100 Non-Rebreather 100 07/10/17 08:00 97 07/10/17 04:00 97.7 101 20 154/106 100 Non-Rebreather 100 07/10/17 04:00 97 07/10/17 00:00 106 07/10/17 00:00 98.4 110 20 142/93 98 Non-Rebreather 100 07/09/17 20:48 Non-Rebreather 15.0 100 07/09/17 20:48 99 Non-Rebreather 15.0 100 07/09/17 20:36 139/99 07/09/17 20:00 101 07/09/17 20:00 98.2 99 32 142/98 98 Non-Rebreather 100 07/09/17 16:00 98.6 104 22 138/91 97 Non-Rebreather 100 07/09/17 16:00 104 07/09/17 12:00 98.4 109 32 143/93 98 Non-Rebreather 100 07/09/17 11:51 111 Intake and Output 07/09/17 07/10/17 19:00 07:00 Intake Total 2135 ml 1915 ml Output Total 930 ml 350 ml Balance 1205 ml 1565 ml Free Water 400 ml 200 ml IV Total 955 ml 935 ml Tube Feeding 780 ml 780 ml Output Urine Total 900 ml 350 ml Stool Total 30 ml # Bowel Movements 60 200 Laboratory Tests Test 07/10/17 04:30 White Blood Count 14.0 K/UL (4.8-10.8) H Red Blood Count 3.16 M/UL (4.70-6.10) L Hemoglobin 9.9 G/DL (14.2-18.0) L Hematocrit 30.9 % (42.0-52.0) L Mean Corpuscular Volume 98 FL (80-99) Mean Corpuscular Hemoglobin 31.4 PG (27.0-31.0) H Mean Corpuscular Hemoglobin Concent 32.1 G/DL (32.0-36.0) Red Cell Distribution Width 11.4 % (11.6-14.8) L Platelet Count 269 K/UL (150-450) Mean Platelet Volume 8.9 FL (6.5-10.1) Neutrophils (%) (Auto) 76.1 % (45.0-75.0) H Lymphocytes (%) (Auto) 11.6 % (20.0-45.0) L Monocytes (%) (Auto) 7.0 % (1.0-10.0) Eosinophils (%) (Auto) 4.8 % (0.0-3.0) H Basophils (%) (Auto) 0.5 % (0.0-2.0) Sodium Level 148 MMOL/L (136-145) H Potassium Level 3.9 MMOL/L (3.5-5.1) Chloride Level 110 MMOL/L (98-107) H Carbon Dioxide Level 32 MMOL/L (21-32) Anion Gap 6 mmol/L (5-15) Blood Urea Nitrogen 31 mg/dL (7-18) H Creatinine 1.0 MG/DL (0.55-1.30) Estimat Glomerular Filtration Rate > 60 mL/min (>60) Glucose Level 109 MG/DL (74-106) H Calcium Level 8.8 MG/DL (8.5-10.1) Height (Feet): 5 Height (Inches): 6.00 Weight (Pounds): 123 General Appearance: WD/WN, no apparent distress, alert Cardiovascular: normal rate Respiratory/Chest: other - non rebreather Abdominal Exam: normal bowel sounds, non tender, soft, other - NGT Extremities: normal range of motion, non-tender Lashawn Mason N.P. Jul 10, 2017 10:19
[2017-07-10 12:00] VITALS: BP 161/90
--- NOTE | 2017-07-10 14:27 | Infectious Diseases Prog Note ---
Assessment/Plan Problems: (1) Pneumonia Assessment & Plan: due to Acinetobacter baumannii , on ceftazidime to treat for two weeks , EOT 07/18/16, monitor CXR (2) Pancreatitis Assessment & Plan: improved , monitor lipase, GI is following, restarted on tube feeding (3) Cardiopulmonary arrest Assessment & Plan: was extubated from mechanical ventilation , as per family request and made DNR and started on morphin drip, but family changed his code status to full code , he is on tele monitor , cardiology is following , may need tracheostomy and PEG placement . (4) Anoxic cerebral edema Assessment & Plan: with no improvement, has poor prognosis , no tracheostomy , or PEG tube placement as per family , now full code as per family request , but postural and spastic and unresponsive . (5) Dysphagia Assessment & Plan: he will need permanent tube feeding for nutritional support , if family wants to proceed with full support (6) Hypernatremia Assessment & Plan: recommend hydration with free water , to bring his sodium down slowly (7) Leukocytosis Assessment & Plan: suspect dehydration related, repeated CXR didn't show any new infiltrates, and C diff toxin is negative Subjective ROS Limited/Unobtainable: Yes Allergies: Coded Allergies: No Known Allergies (Unverified , 06/15/17) Subjective he is still unresponsive , on high flow oxygen via mask, in MARIE , postural and spastic in the lower extremities , dosen't follow commands , afebrile .opens eyes spontaneously on/off . dosen't track Objective Vital Signs Last 24 Hour Vital Signs Date Time Temp Pulse Resp B/P (MAP) Pulse Ox O2 Delivery O2 Flow Rate FiO2 07/10/17 12:00 97.9 105 20 161/90 100 Non-Rebreather 100 07/10/17 12:00 110 07/10/17 10:57 100 Venturi Mask 12.0 50 07/10/17 10:57 Venturi Mask 12.0 50 07/10/17 08:21 137/91 07/10/17 08:00 98.0 98 22 137/91 100 Non-Rebreather 100 07/10/17 08:00 97 07/10/17 04:00 97.7 101 20 154/106 100 Non-Rebreather 100 07/10/17 04:00 97 07/10/17 00:00 106 07/10/17 00:00 98.4 110 20 142/93 98 Non-Rebreather 100 07/09/17 20:48 Non-Rebreather 15.0 100 07/09/17 20:48 99 Non-Rebreather 15.0 100 07/09/17 20:36 139/99 07/09/17 20:00 101 07/09/17 20:00 98.2 99 32 142/98 98 Non-Rebreather 100 07/09/17 16:00 98.6 104 22 138/91 97 Non-Rebreather 100 07/09/17 16:00 104 Height (Feet): 5 Height (Inches): 6.00 Weight (Pounds): 123 General Appearance: WD/WN, no acute distress HEENT: normocephalic, atraumatic, anicteric, mucous membranes moist, PERRL Respiratory/Chest: chest wall non-tender, no respiratory distress, no accessory muscle use, decreased breath sounds, crackles/rales Cardiovascular: normal peripheral pulses, normal rate, regular rhythm, no gallop/murmur, no JVD Abdomen: normal bowel sounds, soft, non tender, no organomegaly, non distended , no mass, no scars Extremities: no cyanosis, no clubbing Skin: no rash, no lesions, ulcers Neurologic/Psychiatric: unresponsiveness Microbiology Date/Time Source Procedure Growth Status 07/07/17 17:11 Blood Blood Culture - Preliminary NO GROWTH AFTER 48 HOURS Resulted 07/07/17 17:00 Blood Blood Culture - Preliminary NO GROWTH AFTER 48 HOURS Resulted Laboratory Tests Test 07/10/17 04:30 White Blood Count 14.0 K/UL (4.8-10.8) H Red Blood Count 3.16 M/UL (4.70-6.10) L Hemoglobin 9.9 G/DL (14.2-18.0) L Hematocrit 30.9 % (42.0-52.0) L Mean Corpuscular Volume 98 FL (80-99) Mean Corpuscular Hemoglobin 31.4 PG (27.0-31.0) H Mean Corpuscular Hemoglobin Concent 32.1 G/DL (32.0-36.0) Red Cell Distribution Width 11.4 % (11.6-14.8) L Platelet Count 269 K/UL (150-450) Mean Platelet Volume 8.9 FL (6.5-10.1) Neutrophils (%) (Auto) 76.1 % (45.0-75.0) H Lymphocytes (%) (Auto) 11.6 % (20.0-45.0) L Monocytes (%) (Auto) 7.0 % (1.0-10.0) Eosinophils (%) (Auto) 4.8 % (0.0-3.0) H Basophils (%) (Auto) 0.5 % (0.0-2.0) Sodium Level 148 MMOL/L (136-145) H Potassium Level 3.9 MMOL/L (3.5-5.1) Chloride Level 110 MMOL/L (98-107) H Carbon Dioxide Level 32 MMOL/L (21-32) Anion Gap 6 mmol/L (5-15) Blood Urea Nitrogen 31 mg/dL (7-18) H Creatinine 1.0 MG/DL (0.55-1.30) Estimat Glomerular Filtration Rate > 60 mL/min (>60) Glucose Level 109 MG/DL (74-106) H Calcium Level 8.8 MG/DL (8.5-10.1) Current Medications Medications (Trade) Dose Ordered Sig/Conrado Route PRN Reason Start Time Stop Time Status Last Admin Dose Admin Acetaminophen (Tylenol) 500 mg Q6HR PRN NG Mild Pain/Temp > 100.5 07/01/17 02:45 07/31/17 02:44 07/08/17 20:09 Ceftazidime 1 gm/ Dextrose 55 ml @ 110 mls/hr Q8HR IV 07/04/17 12:00 07/11/17 11:59 07/10/17 13:53 Dextrose (Dextrose 50%) STAT PRN IV Hypoglycemia 07/01/17 22:30 07/29/17 22:29 Dextrose/ Electrolytes 1,000 ml @ 75 mls/hr [id number] IV 07/08/17 15:00 08/07/17 14:59 07/10/17 07:00 Insulin Aspart (NovoLOG) Q4H SUBQ 07/06/17 19:30 08/05/17 19:29 07/10/17 11:33 Insulin Detemir (Levemir) 25 units Q12HR SUBQ 07/04/17 21:00 08/03/17 20:59 07/10/17 08:23 Losartan Potassium (Cozaar) 50 mg EVERY 12 HOURS NG 07/07/17 21:00 08/06/17 20:59 07/10/17 08:21 Saad Cummings M.D. Jul 10, 2017 14:27
[2017-07-10 16:00] VITALS: BP 148/95
--- NOTE | 2017-07-10 16:00 | Cardiac Electrophysiology PN ---
Assessment/Plan Assessment/Plan 1. Troponin leak due to renal failure with creatinine of 3.5. EF60% 2. Tachycardia due to diabetic ketoacidosis and sepsis. 3. Respiratory failure . S/P Terminal extubation. Full code again.On Face mask 4. Pneumonia on abx per Dr. Cummings 5. Pancreatitis. 6. ARF 7. Marijuana use. 8. Suspect diffuse cerebral anoxia and edema with decorticate rigidity per Dr Cano. 9. Alcohol withdrawal. 10. Severe Hypernatremia. Na 165, improved to 148 11. Full code. 12. Dysphagia. NG tube is in. PEG when more stable from respiratory stand point 13. HTN. Add prn Clonidine DW RN Subjective Subjective On MARIE, on iv Abx with NG feeding ongoing with face mask. Still not stable for PEG. Objective Last 24 Hour Vital Signs Date Time Temp Pulse Resp B/P (MAP) Pulse Ox O2 Delivery O2 Flow Rate FiO2 07/10/17 12:00 97.9 105 20 161/90 100 Non-Rebreather 100 07/10/17 12:00 110 07/10/17 10:57 100 Venturi Mask 12.0 50 07/10/17 10:57 Venturi Mask 12.0 50 07/10/17 08:21 137/91 07/10/17 08:00 98.0 98 22 137/91 100 Non-Rebreather 100 07/10/17 08:00 97 07/10/17 04:00 97.7 101 20 154/106 100 Non-Rebreather 100 07/10/17 04:00 97 07/10/17 00:00 106 07/10/17 00:00 98.4 110 20 142/93 98 Non-Rebreather 100 07/09/17 20:48 Non-Rebreather 15.0 100 07/09/17 20:48 99 Non-Rebreather 15.0 100 07/09/17 20:36 139/99 07/09/17 20:00 101 07/09/17 20:00 98.2 99 32 142/98 98 Non-Rebreather 100 07/09/17 16:00 98.6 104 22 138/91 97 Non-Rebreather 100 07/09/17 16:00 104 Intake and Output 07/09/17 07/10/17 19:00 07:00 Intake Total 2135 ml 1915 ml Output Total 930 ml 350 ml Balance 1205 ml 1565 ml Free Water 400 ml 200 ml IV Total 955 ml 935 ml Tube Feeding 780 ml 780 ml Output Urine Total 900 ml 350 ml Stool Total 30 ml # Bowel Movements 60 200 Laboratory Tests Test 07/10/17 04:30 White Blood Count 14.0 K/UL (4.8-10.8) H Red Blood Count 3.16 M/UL (4.70-6.10) L Hemoglobin 9.9 G/DL (14.2-18.0) L Hematocrit 30.9 % (42.0-52.0) L Mean Corpuscular Volume 98 FL (80-99) Mean Corpuscular Hemoglobin 31.4 PG (27.0-31.0) H Mean Corpuscular Hemoglobin Concent 32.1 G/DL (32.0-36.0) Red Cell Distribution Width 11.4 % (11.6-14.8) L Platelet Count 269 K/UL (150-450) Mean Platelet Volume 8.9 FL (6.5-10.1) Neutrophils (%) (Auto) 76.1 % (45.0-75.0) H Lymphocytes (%) (Auto) 11.6 % (20.0-45.0) L Monocytes (%) (Auto) 7.0 % (1.0-10.0) Eosinophils (%) (Auto) 4.8 % (0.0-3.0) H Basophils (%) (Auto) 0.5 % (0.0-2.0) Sodium Level 148 MMOL/L (136-145) H Potassium Level 3.9 MMOL/L (3.5-5.1) Chloride Level 110 MMOL/L (98-107) H Carbon Dioxide Level 32 MMOL/L (21-32) Anion Gap 6 mmol/L (5-15) Blood Urea Nitrogen 31 mg/dL (7-18) H Creatinine 1.0 MG/DL (0.55-1.30) Estimat Glomerular Filtration Rate > 60 mL/min (>60) Glucose Level 109 MG/DL (74-106) H Calcium Level 8.8 MG/DL (8.5-10.1) Microbiology Date/Time Source Procedure Growth Status 07/07/17 17:11 Blood Blood Culture - Preliminary NO GROWTH AFTER 48 HOURS Resulted 07/07/17 17:00 Blood Blood Culture - Preliminary NO GROWTH AFTER 48 HOURS Resulted Objective HEAD AND NECK: No JVD.oxygen mask is on. NG tube in. LUNGS: Clear. CARDIOVASCULAR: Regular S1 and S2 with no gallop or murmur. ABDOMEN: Soft and nontender. EXTREMITIES: No pitting edema. ALBERT ROWNA Jul 10, 2017 16:00
[2017-07-10 20:00] VITALS: BP 139/91
--- NOTE | 2017-07-10 23:11 | Nephrology Progress Note ---
Assessment/Plan Problem List: (1) DKA (diabetic ketoacidosis) Assessment: resolved. (2) Elevated troponin (3) Pancreatitis Assessment: resolved. (4) Hyponatremia Assessment: corrected (5) Acidosis (6) Respiratory distress Assessment: now intubated (7) Fever (8) Pneumonia Assessment: aspiration? (9) Sepsis (10) Alcohol withdrawal (11) Metabolic acidosis (12) Cardiopulmonary arrest Assessment: due to DKA. Plan Comfort measures dc'd. Restart IVF. Restart NGT feeding. Abx resumed per ID. Repeat Ct head. Repeat EEG. Check ABG. Patient's mother wishes patient to be intubated if necessary. d/w Dr. Matson. Discuss with family regarding code status again. Discuss PEG. and d/c planning. Subjective Subjective Remains on NRB mask. Still unresponsive. Objective Objective Last 24 Hour Vital Signs Date Time Temp Pulse Resp B/P (MAP) Pulse Ox O2 Delivery O2 Flow Rate FiO2 07/10/17 20:58 149/72 07/10/17 20:00 106 07/10/17 20:00 98.1 107 30 139/91 100 Non-Rebreather 100 07/10/17 16:00 97.9 104 20 148/95 100 Non-Rebreather 100 07/10/17 16:00 105 07/10/17 12:00 97.9 105 20 161/90 100 Non-Rebreather 100 07/10/17 12:00 110 07/10/17 10:57 100 Venturi Mask 12.0 50 07/10/17 10:57 Venturi Mask 12.0 50 07/10/17 08:21 137/91 07/10/17 08:00 98.0 98 22 137/91 100 Non-Rebreather 100 07/10/17 08:00 97 07/10/17 04:00 97.7 101 20 154/106 100 Non-Rebreather 100 07/10/17 04:00 97 07/10/17 00:00 106 07/10/17 00:00 98.4 110 20 142/93 98 Non-Rebreather 100 Intake and Output 07/09/17 07/10/17 19:00 07:00 Intake Total 2135 ml 1915 ml Output Total 930 ml 350 ml Balance 1205 ml 1565 ml Free Water 400 ml 200 ml IV Total 955 ml 935 ml Tube Feeding 780 ml 780 ml Output Urine Total 900 ml 350 ml Stool Total 30 ml # Bowel Movements 60 200 Laboratory Tests 07/10/17 04:30: White Blood Count 14.0H, Red Blood Count 3.16L, Hemoglobin 9.9L, Hematocrit 30.9L, Mean Corpuscular Volume 98, Mean Corpuscular Hemoglobin 31.4H, Mean Corpuscular Hemoglobin Concent 32.1, Red Cell Distribution Width 11.4L, Platelet Count 269, Mean Platelet Volume 8.9, Neutrophils (%) (Auto) 76.1H, Lymphocytes (%) (Auto) 11.6L, Monocytes (%) (Auto) 7.0, Eosinophils (%) (Auto) 4.8H, Basophils (%) (Auto) 0.5, Sodium Level 148H, Potassium Level 3.9, Chloride Level 110H, Carbon Dioxide Level 32, Anion Gap 6, Blood Urea Nitrogen 31H, Creatinine 1.0, Estimat Glomerular Filtration Rate > 60, Glucose Level 109H , Calcium Level 8.8 Height (Feet): 5 Height (Inches): 6.00 Weight (Pounds): 123 SOFIA HAYES Jul 10, 2017 23:11
[2017-07-11] VITALS: BP 146/83
[2017-07-11] MEDS: NovoLOG Insulin Flexpen SUBQ SCH ×5 (03:39→19:45)
[2017-07-11 04:00] VITALS: BP 145/91
[2017-07-11] MEDS: cefTAZidime 1gm/D5W 55ml IV SCH ×4 (05:34→16:52)
[2017-07-11 08:00] VITALS: BP 111/95
--- NOTE | 2017-07-11 08:59 | Pulmonology Progress Note ---
Assessment/Plan Assessment/Plan IMPRESSION: 1. Respiratory failure; extubated 2. Cannabis usage. 3. Diabetic ketoacidosis. 4. Troponin leak. 5. Tachycardia. 6. Anoxic brain injury DISCUSSION: Continue present management and care. now extubated Poor prognosis Remains on NRBM ABG adequate Asked to see due to persistent hypoxemia Will switch to ventimask Insert oral airway CXR clear Subjective Interval Events: no significant change Constitutional: Reports: no symptoms HEENT: Repors: no symptoms Respiratory: Reports: no symptoms Cardiovascular: Reports: no symptoms Gastrointestinal/Abdominal: Reports: no symptoms Genitourinary: Reports: no symptoms Neurologic: Reports: no symptoms Allergies: Coded Allergies: No Known Allergies (Unverified , 06/15/17) Objective Last 24 Hour Vital Signs Date Time Temp Pulse Resp B/P (MAP) Pulse Ox O2 Delivery O2 Flow Rate FiO2 07/11/17 04:00 98.1 101 40 145/91 100 Non-Rebreather 100 07/11/17 04:00 93 07/11/17 00:00 98.2 106 32 146/83 100 Non-Rebreather 100 07/11/17 00:00 103 07/10/17 20:58 149/72 07/10/17 20:00 106 07/10/17 20:00 98.1 107 30 139/91 100 Non-Rebreather 100 07/10/17 19:10 Venturi Mask 12.0 50 07/10/17 19:10 100 Venturi Mask 12.0 50 07/10/17 16:00 97.9 104 20 148/95 100 Non-Rebreather 100 07/10/17 16:00 105 07/10/17 12:00 97.9 105 20 161/90 100 Non-Rebreather 100 07/10/17 12:00 110 07/10/17 10:57 100 Venturi Mask 12.0 50 07/10/17 10:57 Venturi Mask 12.0 50 Intake and Output 07/10/17 07/11/17 19:00 07:00 Intake Total 2135 ml 1875 ml Output Total 30 ml 1200 ml Balance 2105 ml 675 ml Free Water 400 ml 300 ml IV Total 955 ml 860 ml Tube Feeding 780 ml 715 ml Output Urine Total 1100 ml Stool Total 30 ml 100 ml General Appearance: no acute distress HEENT: normocephalic Respiratory/Chest: chest wall non-tender, lungs clear Cardiovascular: normal peripheral pulses, normal rate Abdomen: normal bowel sounds Current Medications Medications (Trade) Dose Ordered Sig/Conrado Route PRN Reason Start Time Stop Time Status Last Admin Dose Admin Acetaminophen (Tylenol) 500 mg Q6HR PRN NG Mild Pain/Temp > 100.5 07/01/17 02:45 07/31/17 02:44 07/08/17 20:09 Ceftazidime 1 gm/ Dextrose 55 ml @ 110 mls/hr Q8HR IV 07/04/17 12:00 07/17/17 11:59 07/11/17 05:34 Clonidine HCl (Catapres Tab) 0.1 mg Q2H PRN NG For High Blood Pressure 07/10/17 16:00 08/09/17 15:59 Dextrose (Dextrose 50%) STAT PRN IV Hypoglycemia 07/01/17 22:30 07/29/17 22:29 Dextrose/ Electrolytes 1,000 ml @ 75 mls/hr [id number] IV 07/08/17 15:00 08/07/17 14:59 07/10/17 19:59 Insulin Aspart (NovoLOG) Q4H SUBQ 07/06/17 19:30 08/05/17 19:29 07/11/17 03:39 Insulin Detemir (Levemir) 25 units Q12HR SUBQ 07/04/17 21:00 08/03/17 20:59 07/10/17 21:00 Losartan Potassium (Cozaar) 50 mg EVERY 12 HOURS NG 07/07/17 21:00 08/06/17 20:59 07/10/17 20:58 Paulo Floyd MD Jul 11, 2017 08:59
[2017-07-11] MEDS: Losartan 50mg tab NG SCH ×2 (09:18→21:39)
[2017-07-11] MEDS: Levemir Flexpen SUBQ SCH ×2 (09:19→21:41)
--- NOTE | 2017-07-11 10:36 | GI Progress Note ---
Assessment/Plan Problems: (1) Shock liver ICD Codes: K72.00 - Acute and subacute hepatic failure without coma SNOMED: 187504685 (2) Anoxic cerebral edema ICD Codes: G93.6 - Cerebral edema; R09.02 - Hypoxemia SNOMED: 6283188, 462673058 (3) Transaminitis ICD Codes: R74.0 - Nonspecific elevation of levels of transaminase and lactic acid dehydrogenase [LDH] SNOMED: 075381285, 547783458 (4) Alcohol withdrawal ICD Codes: F10.239 - Alcohol dependence with withdrawal, unspecified SNOMED: 498535059 (5) Pancreatitis ICD Codes: K85.90 - Acute pancreatitis without necrosis or infection, unspecified SNOMED: 63418201 Status: unchanged Status Narrative Discussed with Dr. Rico. Assessment/Plan will schedule PEG once respiratory status stable >> patient now on non rebreather - consent obtained. cont NGTFs electrolyte correction >> increase NGTF free water flushes fu labs Subjective Subjective limited Objective Last 24 Hour Vital Signs Date Time Temp Pulse Resp B/P (MAP) Pulse Ox O2 Delivery O2 Flow Rate FiO2 07/11/17 09:18 141/95 07/11/17 04:00 98.1 101 40 145/91 100 Non-Rebreather 100 07/11/17 04:00 93 07/11/17 00:00 98.2 106 32 146/83 100 Non-Rebreather 100 07/11/17 00:00 103 07/10/17 20:58 149/72 07/10/17 20:00 106 07/10/17 20:00 98.1 107 30 139/91 100 Non-Rebreather 100 07/10/17 19:10 Venturi Mask 12.0 50 07/10/17 19:10 100 Venturi Mask 12.0 50 07/10/17 16:00 97.9 104 20 148/95 100 Non-Rebreather 100 07/10/17 16:00 105 07/10/17 12:00 97.9 105 20 161/90 100 Non-Rebreather 100 07/10/17 12:00 110 07/10/17 10:57 100 Venturi Mask 12.0 50 07/10/17 10:57 Venturi Mask 12.0 50 Intake and Output 07/10/17 07/11/17 19:00 07:00 Intake Total 2135 ml 1875 ml Output Total 30 ml 1200 ml Balance 2105 ml 675 ml Free Water 400 ml 300 ml IV Total 955 ml 860 ml Tube Feeding 780 ml 715 ml Output Urine Total 1100 ml Stool Total 30 ml 100 ml Height (Feet): 5 Height (Inches): 6.00 Weight (Pounds): 123 General Appearance: cachetic Cardiovascular: normal rate Respiratory/Chest: no respiratory distress, other - Non rebreather Abdominal Exam: other - NGT Extremities: non-tender Lashawn Mason N.P. Jul 11, 2017 10:36
[2017-07-11] MEDS: D5W w/KCl 20mEq 1,000 ML IV SCH (11:38)
[2017-07-11 12:00] VITALS: BP 111/95
--- NOTE | 2017-07-11 13:25 | Infectious Diseases Prog Note ---
Assessment/Plan Problems: (1) Pneumonia Assessment & Plan: due to Acinetobacter baumannii , continue ceftazidime for two weeks to finish his course of treatment , EOT 07/18/16, monitor CXR (2) Pancreatitis Assessment & Plan: improved , monitor lipase, GI is following, restarted on tube feeding (3) Cardiopulmonary arrest Assessment & Plan: was extubated from mechanical ventilation , as per family request and made DNR and started on morphin drip, but family changed his code status to full code , he is on tele monitor , cardiology is following , may need tracheostomy and PEG placement . (4) Anoxic cerebral edema Assessment & Plan: with no improvement, has poor prognosis , no tracheostomy , or PEG tube placement as per family , now full code as per family request , but postural and spastic and unresponsive . (5) Dysphagia Assessment & Plan: he will need permanent tube feeding for nutritional support , if family wants to proceed with full support (6) Hypernatremia Assessment & Plan: recommend hydration with free water , to bring his sodium down slowly (7) Leukocytosis Assessment & Plan: suspect dehydration related, repeated CXR didn't show any new infiltrates, and C diff toxin is negative, continue to monitor labs Subjective ROS Limited/Unobtainable: Yes Allergies: Coded Allergies: No Known Allergies (Unverified , 06/15/17) Subjective he is still unresponsive , on high flow oxygen via mask, in MARIE , postural and spastic in the lower extremities , dosen't follow commands , afebrile .opens eyes spontaneously on/off . dosen't track Objective Vital Signs Last 24 Hour Vital Signs Date Time Temp Pulse Resp B/P (MAP) Pulse Ox O2 Delivery O2 Flow Rate FiO2 07/11/17 12:00 98.2 107 24 111/95 100 Venturi Mask 55 07/11/17 09:18 141/95 07/11/17 08:00 98.2 107 24 111/95 100 Venturi Mask 55 07/11/17 07:33 105 07/11/17 04:00 98.1 101 40 145/91 100 Non-Rebreather 100 07/11/17 04:00 93 07/11/17 00:00 98.2 106 32 146/83 100 Non-Rebreather 100 07/11/17 00:00 103 07/10/17 20:58 149/72 07/10/17 20:00 106 07/10/17 20:00 98.1 107 30 139/91 100 Non-Rebreather 100 07/10/17 19:10 Venturi Mask 12.0 50 07/10/17 19:10 100 Venturi Mask 12.0 50 07/10/17 16:00 97.9 104 20 148/95 100 Non-Rebreather 100 07/10/17 16:00 105 Height (Feet): 5 Height (Inches): 6.00 Weight (Pounds): 123 General Appearance: WD/WN, no acute distress HEENT: normocephalic, atraumatic, anicteric, mucous membranes moist, PERRL Respiratory/Chest: chest wall non-tender, no respiratory distress, no accessory muscle use, decreased breath sounds, crackles/rales Cardiovascular: normal peripheral pulses, normal rate, regular rhythm, no gallop/murmur, no JVD Abdomen: normal bowel sounds, soft, non tender, no organomegaly, non distended , no mass, no scars Extremities: no cyanosis, no clubbing Skin: no rash, no lesions, no ulcers Neurologic/Psychiatric: unresponsiveness Lymphatic: no neck adenopathy, no groin adenopathy Musculoskeletal: normal muscle bulk, no effusion Current Medications Medications (Trade) Dose Ordered Sig/Conrado Route PRN Reason Start Time Stop Time Status Last Admin Dose Admin Acetaminophen (Tylenol) 500 mg Q6HR PRN NG Mild Pain/Temp > 100.5 07/01/17 02:45 07/31/17 02:44 07/08/17 20:09 Ceftazidime 1 gm/ Dextrose 55 ml @ 110 mls/hr Q8HR IV 07/04/17 12:00 07/11/17 16:00 07/11/17 05:34 Ceftazidime 1 gm/ Sodium Chloride 55 ml @ 110 mls/hr Q8HR IV 07/11/17 22:00 07/18/17 21:59 Clonidine HCl (Catapres Tab) 0.1 mg Q2H PRN NG For High Blood Pressure 07/10/17 16:00 08/09/17 15:59 Dextrose (Dextrose 50%) STAT PRN IV Hypoglycemia 07/01/17 22:30 07/29/17 22:29 Dextrose/ Electrolytes 1,000 ml @ 75 mls/hr [id number] IV 07/08/17 15:00 08/07/17 14:59 07/11/17 11:38 Insulin Aspart (NovoLOG) Q4H SUBQ 07/06/17 19:30 08/05/17 19:29 07/11/17 12:06 Insulin Detemir (Levemir) 25 units Q12HR SUBQ 07/04/17 21:00 08/03/17 20:59 07/11/17 09:19 Losartan Potassium (Cozaar) 50 mg EVERY 12 HOURS NG 07/07/17 21:00 08/06/17 20:59 07/11/17 09:18 Saad Cummings M.D. Jul 11, 2017 13:25
--- NOTE | 2017-07-11 14:02 | Cardiac Electrophysiology PN ---
Assessment/Plan Assessment/Plan 1. Troponin leak due to renal failure with creatinine of 3.5. EF60% 2. Tachycardia due to diabetic ketoacidosis and sepsis. 3. Respiratory failure . S/P Terminal extubation. Full code again.On Face mask 4. Pneumonia on abx per Dr. Cummings 5. Pancreatitis. 6. ARF. Creatinine now Normal. 7. Marijuana use. 8. Suspect diffuse cerebral anoxia and edema with decorticate rigidity per Dr Cano. 9. Alcohol withdrawal. 10. Severe Hypernatremia. Na 165, improved to 148 11. Full code. 12. Dysphagia. NG tube is in. PEG when more stable from respiratory stand point 13. HTN. On prn Clonidine DW RN Subjective Subjective On MARIE, on iv Abx with NG tube in and with face mask. Unresponsive Objective Last 24 Hour Vital Signs Date Time Temp Pulse Resp B/P (MAP) Pulse Ox O2 Delivery O2 Flow Rate FiO2 07/11/17 12:00 98.2 107 24 111/95 100 Venturi Mask 55 07/11/17 09:18 141/95 07/11/17 08:00 98.2 107 24 111/95 100 Venturi Mask 55 07/11/17 07:33 105 07/11/17 04:00 98.1 101 40 145/91 100 Non-Rebreather 100 07/11/17 04:00 93 07/11/17 00:00 98.2 106 32 146/83 100 Non-Rebreather 100 07/11/17 00:00 103 07/10/17 20:58 149/72 07/10/17 20:00 106 07/10/17 20:00 98.1 107 30 139/91 100 Non-Rebreather 100 07/10/17 19:10 Venturi Mask 12.0 50 07/10/17 19:10 100 Venturi Mask 12.0 50 07/10/17 16:00 97.9 104 20 148/95 100 Non-Rebreather 100 07/10/17 16:00 105 Intake and Output 07/10/17 07/11/17 19:00 07:00 Intake Total 2135 ml 1940 ml Output Total 30 ml 1200 ml Balance 2105 ml 740 ml Free Water 400 ml 300 ml IV Total 955 ml 860 ml Tube Feeding 780 ml 780 ml Output Urine Total 1100 ml Stool Total 30 ml 100 ml Objective HEAD AND NECK: No JVD.oxygen mask is on. NG tube in. LUNGS: Clear. CARDIOVASCULAR: Regular S1 and S2 with no gallop or murmur. ABDOMEN: Soft and nontender. EXTREMITIES: No pitting edema. ALBERT ROWAN Jul 11, 2017 14:02
[2017-07-11 16:00] VITALS: BP 140/90
--- NOTE | 2017-07-11 18:12 | General Progress Note ---
Assessment/Plan Problem List: (1) DKA (diabetic ketoacidosis) ICD Codes: E13.10 - Other specified diabetes mellitus with ketoacidosis without coma SNOMED: 23647603, 627504081 Qualifiers: Qualified Codes: E10.11 - Type 1 diabetes mellitus with ketoacidosis with coma (2) Metabolic acidosis ICD Codes: E87.2 - Acidosis SNOMED: 81532406 (3) Cardiopulmonary arrest ICD Codes: I46.9 - Cardiac arrest, cause unspecified SNOMED: 988836895 Assessment/Plan reduce Levemir to 20 units bid continue NISS Subjective Allergies: Coded Allergies: No Known Allergies (Unverified , 06/15/17) All Systems: reviewed and negative except above Subjective events noted Objective Last 24 Hour Vital Signs Date Time Temp Pulse Resp B/P (MAP) Pulse Ox O2 Delivery O2 Flow Rate FiO2 07/11/17 16:00 98.3 25 140/90 100 Venturi Mask 55 07/11/17 16:00 113 07/11/17 12:00 106 07/11/17 12:00 98.2 107 24 111/95 100 Venturi Mask 55 07/11/17 09:18 141/95 07/11/17 08:00 98.2 107 24 111/95 100 Venturi Mask 55 07/11/17 07:33 105 07/11/17 04:00 98.1 101 40 145/91 100 Non-Rebreather 100 07/11/17 04:00 93 07/11/17 00:00 98.2 106 32 146/83 100 Non-Rebreather 100 07/11/17 00:00 103 07/10/17 20:58 149/72 07/10/17 20:00 106 07/10/17 20:00 98.1 107 30 139/91 100 Non-Rebreather 100 07/10/17 19:10 Venturi Mask 12.0 50 07/10/17 19:10 100 Venturi Mask 12.0 50 Intake and Output 07/10/17 07/11/17 19:00 07:00 Intake Total 2135 ml 1940 ml Output Total 30 ml 1200 ml Balance 2105 ml 740 ml Free Water 400 ml 300 ml IV Total 955 ml 860 ml Tube Feeding 780 ml 780 ml Output Urine Total 1100 ml Stool Total 30 ml 100 ml Height (Feet): 5 Height (Inches): 6.00 Weight (Pounds): 123 Neck: normal alignment Cardiovascular: regular rhythm Respiratory/Chest: lungs clear Abdomen: non tender Edema: no edema noted Arm (L), no edema noted Arm (R), no edema noted Leg (L), no edema noted Leg (R), no edema noted Pedal (L), no edema noted Pedal (R), no edema noted Generalized Objective Current Medications Medications (Trade) Dose Ordered Sig/Conrado Route PRN Reason Start Time Stop Time Status Last Admin Dose Admin Acetaminophen (Tylenol) 500 mg Q6HR PRN NG Mild Pain/Temp > 100.5 07/01/17 02:45 07/31/17 02:44 07/08/17 20:09 Ceftazidime 1 gm/ Sodium Chloride 55 ml @ 110 mls/hr Q8HR IV 07/11/17 22:00 07/18/17 21:59 Clonidine HCl (Catapres Tab) 0.1 mg Q2H PRN NG For High Blood Pressure 07/10/17 16:00 08/09/17 15:59 Dextrose (Dextrose 50%) STAT PRN IV Hypoglycemia 07/01/17 22:30 07/29/17 22:29 Dextrose/ Electrolytes 1,000 ml @ 75 mls/hr [id number] IV 07/08/17 15:00 08/07/17 14:59 07/11/17 11:38 Insulin Aspart (NovoLOG) Q4H SUBQ 07/06/17 19:30 08/05/17 19:29 07/11/17 12:06 Insulin Detemir (Levemir) 25 units Q12HR SUBQ 07/04/17 21:00 08/03/17 20:59 07/11/17 09:19 Losartan Potassium (Cozaar) 50 mg EVERY 12 HOURS NG 07/07/17 21:00 08/06/17 20:59 07/11/17 09:18 Item Value Date Time Coma Scale Total 9 Points 07/11/17 1600 Bedside Blood Glucose 69 mg/dl L 07/11/17 1706 Bedside Blood Glucose 186 mg/dl H 07/11/17 1206 Bedside Blood Glucose 304 mg/dl H 07/11/17 0919 Bedside Blood Glucose 234 mg/dl H 07/11/17 0400 Bedside Blood Glucose 263 mg/dl H 07/10/17 2330 Bedside Blood Glucose 270 mg/dl H 07/10/17 2100 Bedside Blood Glucose 181 mg/dl H 07/10/17 1532 JADIEL MARCANO Jul 11, 2017 18:12
--- NOTE | 2017-07-11 19:29 | Nephrology Progress Note ---
Assessment/Plan Problem List: (1) Hypernatremia Assessment: Improved (2) Hypokalemia Assessment: corrected (3) Fever (4) Acidosis (5) Respiratory distress (6) Pancreatitis (7) Elevated troponin (8) Alcohol withdrawal (9) Pneumonia (10) Sepsis (11) Cardiopulmonary arrest (12) Metabolic acidosis (13) DKA (diabetic ketoacidosis) (14) Renal failure Assessment: Improved Plan Continue current treatment plan D5W+KCL@ 75cc/hr Accu-check q4h Continue free water flushes Monitor temp Suspect diffuse cerebral anoxia and edema with decorticate rigidity per Dr Cano. Monitor lytes, correct prn Monitor neuro status, f/u with neurology rec Continue NG tube feeding and IVF Pending PEG placement Strict glycemic control Monitor renal function on current abx Abx per ID Monitor intake and output Free water flush Continue carpenter Subjective ROS Limited/Unobtainable: Yes Subjective Seen in MAREI,unresponsive, on venturi mask, mother at bedside Objective Objective Last 24 Hour Vital Signs Date Time Temp Pulse Resp B/P (MAP) Pulse Ox O2 Delivery O2 Flow Rate FiO2 07/11/17 16:00 98.3 25 140/90 100 Venturi Mask 55 07/11/17 16:00 113 07/11/17 12:00 106 07/11/17 12:00 98.2 107 24 111/95 100 Venturi Mask 55 07/11/17 09:18 141/95 07/11/17 08:00 98.2 107 24 111/95 100 Venturi Mask 55 07/11/17 07:33 105 07/11/17 04:00 98.1 101 40 145/91 100 Non-Rebreather 100 07/11/17 04:00 93 07/11/17 00:00 98.2 106 32 146/83 100 Non-Rebreather 100 07/11/17 00:00 103 07/10/17 20:58 149/72 07/10/17 20:00 106 07/10/17 20:00 98.1 107 30 139/91 100 Non-Rebreather 100 Intake and Output 07/10/17 07/11/17 19:00 07:00 Intake Total 2135 ml 1940 ml Output Total 30 ml 1200 ml Balance 2105 ml 740 ml Free Water 400 ml 300 ml IV Total 955 ml 860 ml Tube Feeding 780 ml 780 ml Output Urine Total 1100 ml Stool Total 30 ml 100 ml Height (Feet): 5 Height (Inches): 6.00 Weight (Pounds): 123 General Appearance: no apparent distress Neck: stiff neck Cardiovascular: normal rate Respiratory/Chest: decreased breath sounds Abdomen: soft Genitourinary/Rectal: other - carpenter Neurologic: unresponsive Hannah Johnson N.P. Jul 11, 2017 19:29
[2017-07-11 20:00] VITALS: BP 148/97
[2017-07-12] VITALS: BP 136/84
[2017-07-12] MEDS: NovoLOG Insulin Flexpen SUBQ SCH ×7 (00:02→23:34)
[2017-07-12 04:00] VITALS: BP 132/89
[2017-07-12 08:00] VITALS: BP 145/83
--- NOTE | 2017-07-12 08:04 | Pulmonology Progress Note ---
Assessment/Plan Assessment/Plan IMPRESSION: 1. Respiratory failure; extubated 2. Cannabis usage. 3. Diabetic ketoacidosis. 4. Troponin leak. 5. Tachycardia. 6. Anoxic brain injury DISCUSSION: Continue present management and care. now extubated Poor prognosis Remains on supplemental O2; now with lower FiO2 ABG adequate Continue oral airway/suctioning CXR clear Subjective Interval Events: Saturations improved; on 50% VM Constitutional: Reports: no symptoms HEENT: Repors: no symptoms Respiratory: Reports: no symptoms Cardiovascular: Reports: no symptoms Gastrointestinal/Abdominal: Reports: no symptoms Allergies: Coded Allergies: No Known Allergies (Unverified , 06/15/17) Objective Last 24 Hour Vital Signs Date Time Temp Pulse Resp B/P (MAP) Pulse Ox O2 Delivery O2 Flow Rate FiO2 07/12/17 04:00 111 07/12/17 04:00 98.0 101 21 132/89 100 Venturi Mask 55 07/12/17 00:00 111 07/12/17 00:00 98.0 108 32 136/84 100 Venturi Mask 55 07/11/17 21:39 146/88 07/11/17 21:07 99 Venturi Mask 12.0 50 07/11/17 21:07 Venturi Mask 12.0 50 07/11/17 20:00 115 07/11/17 20:00 98.1 115 25 148/97 100 Venturi Mask 55 07/11/17 16:00 98.3 25 140/90 100 Venturi Mask 55 07/11/17 16:00 113 07/11/17 12:00 106 07/11/17 12:00 98.2 107 24 111/95 100 Venturi Mask 55 07/11/17 09:18 141/95 Intake and Output 07/11/17 07/12/17 19:00 07:00 Intake Total 1035 ml 1780 ml Output Total 1850 ml 800 ml Balance -815 ml 980 ml Free Water 120 ml 200 ml IV Total 75 ml 805 ml Tube Feeding 780 ml 715 ml Other 60 ml 60 ml Output Urine Total 1850 ml 800 ml # Bowel Movements 50 100 General Appearance: no acute distress HEENT: normocephalic Respiratory/Chest: chest wall non-tender, lungs clear Cardiovascular: normal peripheral pulses, normal rate Current Medications Medications (Trade) Dose Ordered Sig/Conrado Route PRN Reason Start Time Stop Time Status Last Admin Dose Admin Acetaminophen (Tylenol) 500 mg Q6HR PRN NG Mild Pain/Temp > 100.5 07/01/17 02:45 07/31/17 02:44 07/08/17 20:09 Ceftazidime 1 gm/ Sodium Chloride 55 ml @ 110 mls/hr Q8HR IV 07/11/17 22:00 07/18/17 21:59 07/12/17 06:00 Clonidine HCl (Catapres Tab) 0.1 mg Q2H PRN NG For High Blood Pressure 07/10/17 16:00 08/09/17 15:59 Dextrose (Dextrose 50%) STAT PRN IV Hypoglycemia 07/01/17 22:30 07/29/17 22:29 07/12/17 03:56 Dextrose/ Electrolytes 1,000 ml @ 75 mls/hr [id number] IV 07/08/17 15:00 08/07/17 14:59 07/12/17 00:00 Insulin Aspart (NovoLOG) Q4H SUBQ 07/06/17 19:30 08/05/17 19:29 07/12/17 07:46 Insulin Detemir (Levemir) 20 units Q12HR SUBQ 07/11/17 21:00 08/10/17 20:59 07/11/17 21:41 Losartan Potassium (Cozaar) 50 mg EVERY 12 HOURS NG 07/07/17 21:00 08/06/17 20:59 07/11/17 21:39 Paulo Floyd MD Jul 12, 2017 08:04
[2017-07-12] MEDS: Levemir Flexpen SUBQ SCH ×2 (09:04→21:14)
[2017-07-12] MEDS: Losartan 50mg tab NG SCH ×2 (09:04→21:14)
--- NOTE | 2017-07-12 10:05 | GI Progress Note ---
Assessment/Plan Problems: (1) Shock liver ICD Codes: K72.00 - Acute and subacute hepatic failure without coma SNOMED: 332762507 (2) Anoxic cerebral edema ICD Codes: G93.6 - Cerebral edema; R09.02 - Hypoxemia SNOMED: 6566470, 802831802 (3) Transaminitis ICD Codes: R74.0 - Nonspecific elevation of levels of transaminase and lactic acid dehydrogenase [LDH] SNOMED: 146306003, 232528278 (4) Alcohol withdrawal ICD Codes: F10.239 - Alcohol dependence with withdrawal, unspecified SNOMED: 662720708 (5) Pancreatitis ICD Codes: K85.90 - Acute pancreatitis without necrosis or infection, unspecified SNOMED: 48663368 Status: progressing Status Narrative Discussed with Dr. Rico. Assessment/Plan will schedule PEG once respiratory status stable >> patient now on venturi @ FiO2 50% - consent obtained. cont NGTFs electrolyte correction >> increase NGTF free water flushes fu labs Subjective Subjective limited Objective Last 24 Hour Vital Signs Date Time Temp Pulse Resp B/P (MAP) Pulse Ox O2 Delivery O2 Flow Rate FiO2 07/12/17 09:04 149/99 07/12/17 08:00 97.7 81 26 145/83 100 Venturi Mask 55 07/12/17 08:00 97 07/12/17 04:00 111 07/12/17 04:00 98.0 101 21 132/89 100 Venturi Mask 55 07/12/17 00:00 111 07/12/17 00:00 98.0 108 32 136/84 100 Venturi Mask 55 07/11/17 21:39 146/88 07/11/17 21:07 99 Venturi Mask 12.0 50 07/11/17 21:07 Venturi Mask 12.0 50 07/11/17 20:00 115 07/11/17 20:00 98.1 115 25 148/97 100 Venturi Mask 55 07/11/17 16:00 98.3 25 140/90 100 Venturi Mask 55 07/11/17 16:00 113 07/11/17 12:00 106 07/11/17 12:00 98.2 107 24 111/95 100 Venturi Mask 55 Intake and Output 07/11/17 07/12/17 19:00 07:00 Intake Total 1035 ml 1855 ml Output Total 1850 ml 800 ml Balance -815 ml 1055 ml Free Water 120 ml 200 ml IV Total 75 ml 880 ml Tube Feeding 780 ml 715 ml Other 60 ml 60 ml Output Urine Total 1850 ml 800 ml # Bowel Movements 50 100 Height (Feet): 5 Height (Inches): 6.00 Weight (Pounds): 123 General Appearance: no apparent distress, cachetic Cardiovascular: normal rate Respiratory/Chest: normal breath sounds, no respiratory distress, other - venturi mask Abdominal Exam: normal bowel sounds, non tender, soft, other - NGT Extremities: non-tender Lashawn Mason N.P. Jul 12, 2017 10:05
--- NOTE | 2017-07-12 10:46 | Cardiac Electrophysiology PN ---
Assessment/Plan Assessment/Plan 1. Troponin leak due to renal failure. EF60% 2. Tachycardia due to diabetic ketoacidosis and sepsis. 3. Respiratory failure . S/P Terminal extubation. Full code again.On Face mask 4. Pneumonia on abx per Dr. Cummings 5. Pancreatitis. 6. ARF. Creatinine now Normal. 7. Marijuana use. 8. Suspect diffuse cerebral anoxia and edema with decorticate rigidity per Dr Cano. 9. Alcohol withdrawal. 10. Severe Hypernatremia. Na 165, improved to 148 11. Full code. 12. Dysphagia. NG feeding bnow. PEG when more stable from respiratory stand point 13. HTN. On prn Clonidine DW RN Subjective Subjective On MARIE, on iv Abx and with face mask.Opens eyes and coughs spontaneously Objective Last 24 Hour Vital Signs Date Time Temp Pulse Resp B/P (MAP) Pulse Ox O2 Delivery O2 Flow Rate FiO2 07/12/17 09:04 149/99 07/12/17 08:00 97.7 81 26 145/83 100 Venturi Mask 55 07/12/17 08:00 97 07/12/17 04:00 111 07/12/17 04:00 98.0 101 21 132/89 100 Venturi Mask 55 07/12/17 00:00 111 07/12/17 00:00 98.0 108 32 136/84 100 Venturi Mask 55 07/11/17 21:39 146/88 07/11/17 21:07 99 Venturi Mask 12.0 50 07/11/17 21:07 Venturi Mask 12.0 50 07/11/17 20:00 115 07/11/17 20:00 98.1 115 25 148/97 100 Venturi Mask 55 07/11/17 16:00 98.3 25 140/90 100 Venturi Mask 55 07/11/17 16:00 113 07/11/17 12:00 106 07/11/17 12:00 98.2 107 24 111/95 100 Venturi Mask 55 Intake and Output 07/11/17 07/12/17 19:00 07:00 Intake Total 1035 ml 1855 ml Output Total 1850 ml 800 ml Balance -815 ml 1055 ml Free Water 120 ml 200 ml IV Total 75 ml 880 ml Tube Feeding 780 ml 715 ml Other 60 ml 60 ml Output Urine Total 1850 ml 800 ml # Bowel Movements 50 100 Laboratory Tests Test 07/12/17 10:20 White Blood Count Pending Red Blood Count Pending Hemoglobin Pending Hematocrit Pending Mean Corpuscular Volume Pending Mean Corpuscular Hemoglobin Pending Mean Corpuscular Hemoglobin Concent Pending Red Cell Distribution Width Pending Platelet Count Pending Mean Platelet Volume Pending Neutrophils (%) (Auto) Pending Lymphocytes (%) (Auto) Pending Monocytes (%) (Auto) Pending Eosinophils (%) (Auto) Pending Basophils (%) (Auto) Pending Sodium Level Pending Potassium Level Pending Chloride Level Pending Carbon Dioxide Level Pending Blood Urea Nitrogen Pending Creatinine Pending Estimat Glomerular Filtration Rate Pending Glucose Level Pending Calcium Level Pending Objective HEAD AND NECK: No JVD.oxygen mask is on. NG tube in. LUNGS: Clear. CARDIOVASCULAR: Regular S1 and S2 with no gallop or murmur. ABDOMEN: Soft and nontender. EXTREMITIES: No pitting edema. ALBERT ROWAN Jul 12, 2017 10:46
[2017-07-12 10:51] LABS: BASOPHILS % (AUTO) 0.9 % (0.0-2.0); EOSINOPHILS % (AUTO) 2.9 % (0.0-3.0); HEMATOCRIT 28.9 % (42.0-52.0); HEMOGLOBIN 9.5 G/DL (14.2-18.0); LYMPHOCYTES % (AUTO) 12.9 % (20.0-45.0); MEAN CORPUSCULAR VOLUME 97 FL (80-99); MONOCYTES % (AUTO) 8.4 % (1.0-10.0); NEUTROPHILS % (AUTO) 74.9 % (45.0-75.0); PLATELET COUNT 294 K/UL (150-450); RED BLOOD COUNT 2.98 M/UL (4.70-6.10); RED CELL DISTRIBUTION WIDTH 11.4 % (11.6-14.8); WHITE BLOOD COUNT 11.4 K/UL (4.8-10.8)
[2017-07-12 11:24] LABS: ANION GAP 5 mmol/L (5-15); BLOOD UREA NITROGEN 23 mg/dL (7-18); CALCIUM 9.1 MG/DL (8.5-10.1); CARBON DIOXIDE 31 MMOL/L (21-32); CHLORIDE 104 MMOL/L (98-107); CREATININE 0.8 MG/DL (0.55-1.30); POTASSIUM 4.3 MMOL/L (3.5-5.1); SODIUM 140 MMOL/L (136-145)
[2017-07-12 12:00] VITALS: BP 124/83
[2017-07-12] MEDS: D5W w/KCl 20mEq 1,000 ML IV SCH ×2 (13:09)
[2017-07-12 16:00] VITALS: BP 139/95
--- NOTE | 2017-07-12 18:04 | Infectious Diseases Prog Note ---
Assessment/Plan Problems: (1) Pneumonia Assessment & Plan: due to Acinetobacter baumannii , continue ceftazidime for two weeks to finish his course of treatment , EOT 07/18/16, monitor CXR (2) Pancreatitis Assessment & Plan: improved , monitor lipase, GI is following, restarted on tube feeding (3) Cardiopulmonary arrest Assessment & Plan: was extubated from mechanical ventilation , as per family request and made DNR and started on morphin drip, but family changed his code status to full code , he is on tele monitor , cardiology is following , may need tracheostomy and PEG placement . (4) Anoxic cerebral edema Assessment & Plan: with no improvement, has poor prognosis , no tracheostomy , or PEG tube placement as per family , now full code as per family request , but postural and spastic and unresponsive . (5) Dysphagia Assessment & Plan: he will need permanent tube feeding for nutritional support , if family wants to proceed with full support (6) Hypernatremia Assessment & Plan: recommend hydration with free water , to bring his sodium down slowly (7) Leukocytosis Assessment & Plan: suspect dehydration related, repeated CXR didn't show any new infiltrates, and C diff toxin is negative, continue to monitor labs Subjective ROS Limited/Unobtainable: Yes Allergies: Coded Allergies: No Known Allergies (Unverified , 06/15/17) Subjective he is still unresponsive , on high flow oxygen via mask, in MARIE , postural and spastic in the lower extremities , dosen't follow commands , afebrile .opens eyes spontaneously on/off . dosen't track Objective Vital Signs Last 24 Hour Vital Signs Date Time Temp Pulse Resp B/P (MAP) Pulse Ox O2 Delivery O2 Flow Rate FiO2 07/12/17 16:00 91 07/12/17 16:00 97.9 100 30 139/95 100 Venturi Mask 55 07/12/17 12:00 92 07/12/17 12:00 97.7 91 28 124/83 99 Venturi Mask 55 07/12/17 09:04 149/99 07/12/17 08:00 97.7 81 26 145/83 100 Venturi Mask 55 07/12/17 08:00 97 07/12/17 04:00 111 07/12/17 04:00 98.0 101 21 132/89 100 Venturi Mask 55 07/12/17 00:00 111 07/12/17 00:00 98.0 108 32 136/84 100 Venturi Mask 55 07/11/17 21:39 146/88 07/11/17 21:07 99 Venturi Mask 12.0 50 07/11/17 21:07 Venturi Mask 12.0 50 07/11/17 20:00 115 07/11/17 20:00 98.1 115 25 148/97 100 Venturi Mask 55 Height (Feet): 5 Height (Inches): 6.00 Weight (Pounds): 123 General Appearance: WD/WN, no acute distress HEENT: normocephalic, atraumatic, anicteric, mucous membranes moist, PERRL, pharynx normal Respiratory/Chest: chest wall non-tender, normal breath sounds, no respiratory distress, no accessory muscle use, decreased breath sounds, crackles/rales Cardiovascular: normal peripheral pulses, normal rate, regular rhythm, no gallop/murmur, no JVD Abdomen: normal bowel sounds, soft, non tender, no organomegaly, non distended , no mass, no scars Genitourinary: normal external genitalia Extremities: no cyanosis, no clubbing Skin: no rash, no lesions, ulcers Neurologic/Psychiatric: unresponsiveness Laboratory Tests Test 07/12/17 10:20 White Blood Count 11.4 K/UL (4.8-10.8) H Red Blood Count 2.98 M/UL (4.70-6.10) L Hemoglobin 9.5 G/DL (14.2-18.0) L Hematocrit 28.9 % (42.0-52.0) L Mean Corpuscular Volume 97 FL (80-99) Mean Corpuscular Hemoglobin 32.0 PG (27.0-31.0) H Mean Corpuscular Hemoglobin Concent 33.0 G/DL (32.0-36.0) Red Cell Distribution Width 11.4 % (11.6-14.8) L Platelet Count 294 K/UL (150-450) Mean Platelet Volume 8.8 FL (6.5-10.1) Neutrophils (%) (Auto) 74.9 % (45.0-75.0) Lymphocytes (%) (Auto) 12.9 % (20.0-45.0) L Monocytes (%) (Auto) 8.4 % (1.0-10.0) Eosinophils (%) (Auto) 2.9 % (0.0-3.0) Basophils (%) (Auto) 0.9 % (0.0-2.0) Sodium Level 140 MMOL/L (136-145) Potassium Level 4.3 MMOL/L (3.5-5.1) Chloride Level 104 MMOL/L (98-107) Carbon Dioxide Level 31 MMOL/L (21-32) Anion Gap 5 mmol/L (5-15) Blood Urea Nitrogen 23 mg/dL (7-18) H Creatinine 0.8 MG/DL (0.55-1.30) Estimat Glomerular Filtration Rate > 60 mL/min (>60) Glucose Level 240 MG/DL (74-106) H Calcium Level 9.1 MG/DL (8.5-10.1) Current Medications Medications (Trade) Dose Ordered Sig/Conrado Route PRN Reason Start Time Stop Time Status Last Admin Dose Admin Acetaminophen (Tylenol) 500 mg Q6HR PRN NG Mild Pain/Temp > 100.5 07/01/17 02:45 07/31/17 02:44 07/08/17 20:09 Ceftazidime 1 gm/ Sodium Chloride 55 ml @ 110 mls/hr Q8HR IV 07/11/17 22:00 07/18/17 21:59 07/12/17 13:09 Clonidine HCl (Catapres Tab) 0.1 mg Q2H PRN NG For High Blood Pressure 07/10/17 16:00 08/09/17 15:59 Dextrose (Dextrose 50%) STAT PRN IV Hypoglycemia 07/01/17 22:30 07/29/17 22:29 07/12/17 03:56 Dextrose/ Electrolytes 1,000 ml @ 75 mls/hr [id number] IV 07/08/17 15:00 08/07/17 14:59 07/12/17 13:09 Insulin Aspart (NovoLOG) Q4H SUBQ 07/06/17 19:30 08/05/17 19:29 07/12/17 16:16 Insulin Detemir (Levemir) 20 units Q12HR SUBQ 07/11/17 21:00 08/10/17 20:59 07/12/17 09:04 Losartan Potassium (Cozaar) 50 mg EVERY 12 HOURS NG 07/07/17 21:00 08/06/17 20:59 07/12/17 09:04 Saad Cummings M.D. Jul 12, 2017 18:04
[2017-07-12 20:00] VITALS: BP 149/109
--- NOTE | 2017-07-12 22:34 | Nephrology Progress Note ---
Assessment/Plan Problem List: (1) Hyponatremia Assessment: resolved. (2) Sepsis Assessment: improving. (3) Alcohol withdrawal (4) Pneumonia Assessment: resolving. (5) Cardiopulmonary arrest (6) Metabolic acidosis Assessment: resolved. (7) DKA (diabetic ketoacidosis) Assessment: resolved. (8) Transaminitis (9) Hypokalemia (10) Hypernatremia Assessment: resolved. (11) Anoxic encephalopathy syndrome (12) Anoxic cerebral edema (13) Shock liver (14) Fever Assessment: resolved. (15) Respiratory distress (16) Pancreatitis Assessment: resolved (17) Elevated troponin Plan pulm following. FULL CODE. pending PEG/trach when more stable. abx per ID. cardio and neuro following. d/w RN. monitor labs. Subjective Subjective no acute events. Objective Objective Last 24 Hour Vital Signs Date Time Temp Pulse Resp B/P (MAP) Pulse Ox O2 Delivery O2 Flow Rate FiO2 07/12/17 21:14 144/95 07/12/17 21:00 Venturi Mask 12.0 50 07/12/17 20:00 100 07/12/17 20:00 98.0 98 32 149/109 100 Venturi Mask 55 07/12/17 20:00 98 Venturi Mask 12.0 50 07/12/17 16:00 91 07/12/17 16:00 97.9 100 30 139/95 100 Venturi Mask 55 07/12/17 12:00 92 07/12/17 12:00 97.7 91 28 124/83 99 Venturi Mask 55 07/12/17 09:04 149/99 07/12/17 08:00 97.7 81 26 145/83 100 Venturi Mask 55 07/12/17 08:00 97 07/12/17 04:00 111 07/12/17 04:00 98.0 101 21 132/89 100 Venturi Mask 55 07/12/17 00:00 111 07/12/17 00:00 98.0 108 32 136/84 100 Venturi Mask 55 Intake and Output 07/11/17 07/12/17 19:00 07:00 Intake Total 1035 ml 1920 ml Output Total 1850 ml 800 ml Balance -815 ml 1120 ml Free Water 120 ml 200 ml IV Total 75 ml 880 ml Tube Feeding 780 ml 780 ml Other 60 ml 60 ml Output Urine Total 1850 ml 800 ml # Bowel Movements 50 100 Laboratory Tests 07/12/17 10:20: White Blood Count 11.4H, Red Blood Count 2.98L, Hemoglobin 9.5L, Hematocrit 28.9L, Mean Corpuscular Volume 97, Mean Corpuscular Hemoglobin 32.0H, Mean Corpuscular Hemoglobin Concent 33.0, Red Cell Distribution Width 11.4L, Platelet Count 294, Mean Platelet Volume 8.8, Neutrophils (%) (Auto) 74.9, Lymphocytes (%) (Auto) 12.9L, Monocytes (%) (Auto) 8.4, Eosinophils (%) (Auto) 2.9, Basophils (%) (Auto) 0.9, Sodium Level 140, Potassium Level 4.3, Chloride Level 104, Carbon Dioxide Level 31, Anion Gap 5, Blood Urea Nitrogen 23H, Creatinine 0.8, Estimat Glomerular Filtration Rate > 60, Glucose Level 240H, Calcium Level 9.1 Height (Feet): 5 Height (Inches): 6.00 Weight (Pounds): 123 General Appearance: no apparent distress Cardiovascular: normal rate, regular rhythm Respiratory/Chest: decreased breath sounds Abdomen: non tender, soft Extremities: non-pitting Neurologic: unresponsive REMIGIO KNOX Jul 12, 2017 22:34
[2017-07-13] VITALS (7 sets, daily range): BP systolic 18–148; BP diastolic 88–107
[2017-07-13] MEDS: D5W w/KCl 20mEq 1,000 ML IV SCH ×2 (02:01→14:24)
[2017-07-13] MEDS: NovoLOG Insulin Flexpen SUBQ SCH ×6 (03:30→23:27)
[2017-07-13 06:04] LABS: BASOPHILS % (AUTO) 0.9 % (0.0-2.0); EOSINOPHILS % (AUTO) 3.2 % (0.0-3.0); HEMATOCRIT 31.5 % (42.0-52.0); HEMOGLOBIN 10.5 G/DL (14.2-18.0); LYMPHOCYTES % (AUTO) 14.9 % (20.0-45.0); MEAN CORPUSCULAR VOLUME 97 FL (80-99); MONOCYTES % (AUTO) 8.7 % (1.0-10.0); NEUTROPHILS % (AUTO) 72.3 % (45.0-75.0); PLATELET COUNT 342 K/UL (150-450); RED BLOOD COUNT 3.23 M/UL (4.70-6.10); RED CELL DISTRIBUTION WIDTH 11.8 % (11.6-14.8); WHITE BLOOD COUNT 9.2 K/UL (4.8-10.8)
[2017-07-13 06:20] LABS: ANION GAP 8 mmol/L (5-15); BLOOD UREA NITROGEN 19 mg/dL (7-18); CALCIUM 9.7 MG/DL (8.5-10.1); CARBON DIOXIDE 30 MMOL/L (21-32); CHLORIDE 101 MMOL/L (98-107); CREATININE 0.8 MG/DL (0.55-1.30); POTASSIUM 4.3 MMOL/L (3.5-5.1); SODIUM 139 MMOL/L (136-145)
--- NOTE | 2017-07-13 06:33 | General Progress Note ---
Assessment/Plan Problem List: (1) DKA (diabetic ketoacidosis) ICD Codes: E13.10 - Other specified diabetes mellitus with ketoacidosis without coma SNOMED: 53305027, 199544990 Qualifiers: Qualified Codes: E10.11 - Type 1 diabetes mellitus with ketoacidosis with coma (2) Metabolic acidosis ICD Codes: E87.2 - Acidosis SNOMED: 13822738 (3) Cardiopulmonary arrest ICD Codes: I46.9 - Cardiac arrest, cause unspecified SNOMED: 690586598 Assessment/Plan continue Levemir 20 units bid continue NISS Subjective ROS Limited/Unobtainable: Yes Allergies: Coded Allergies: No Known Allergies (Unverified , 06/15/17) Subjective events noted Objective Last 24 Hour Vital Signs Date Time Temp Pulse Resp B/P (MAP) Pulse Ox O2 Delivery O2 Flow Rate FiO2 07/13/17 04:00 98.2 98 28 136/88 100 Venturi Mask 55 07/13/17 04:00 100 07/13/17 00:00 98.2 99 32 147/97 100 Venturi Mask 55 07/12/17 21:14 144/95 07/12/17 21:00 Venturi Mask 12.0 50 07/12/17 20:00 100 07/12/17 20:00 98.0 98 32 149/109 100 Venturi Mask 55 07/12/17 20:00 98 Venturi Mask 12.0 50 07/12/17 16:00 91 07/12/17 16:00 97.9 100 30 139/95 100 Venturi Mask 55 07/12/17 12:00 92 07/12/17 12:00 97.7 91 28 124/83 99 Venturi Mask 55 07/12/17 09:04 149/99 07/12/17 08:00 97.7 81 26 145/83 100 Venturi Mask 55 07/12/17 08:00 97 Intake and Output 07/12/17 07/13/17 19:00 07:00 Intake Total 2050 ml 1175 ml Output Total 1350 ml Balance 700 ml 1175 ml Free Water 400 ml 100 ml IV Total 1030 ml 730 ml Tube Feeding 620 ml 285 ml Other 60 ml Output Urine Total 1200 ml Stool Total 150 ml Laboratory Tests 07/12/17 10:20: White Blood Count 11.4H, Red Blood Count 2.98L, Hemoglobin 9.5L, Hematocrit 28.9L, Mean Corpuscular Volume 97, Mean Corpuscular Hemoglobin 32.0H, Mean Corpuscular Hemoglobin Concent 33.0, Red Cell Distribution Width 11.4L, Platelet Count 294, Mean Platelet Volume 8.8, Neutrophils (%) (Auto) 74.9, Lymphocytes (%) (Auto) 12.9L, Monocytes (%) (Auto) 8.4, Eosinophils (%) (Auto) 2.9, Basophils (%) (Auto) 0.9, Sodium Level 140, Potassium Level 4.3, Chloride Level 104, Carbon Dioxide Level 31, Anion Gap 5, Blood Urea Nitrogen 23H, Creatinine 0.8, Estimat Glomerular Filtration Rate > 60, Glucose Level 240H, Calcium Level 9.1 07/13/17 05:25: White Blood Count 9.2, Red Blood Count 3.23L, Hemoglobin 10.5L, Hematocrit 31.5L , Mean Corpuscular Volume 97, Mean Corpuscular Hemoglobin 32.6H, Mean Corpuscular Hemoglobin Concent 33.4, Red Cell Distribution Width 11.8, Platelet Count 342, Mean Platelet Volume 9.2, Neutrophils (%) (Auto) 72.3, Lymphocytes (% ) (Auto) 14.9L, Monocytes (%) (Auto) 8.7, Eosinophils (%) (Auto) 3.2H, Basophils (%) (Auto) 0.9, Sodium Level 139, Potassium Level 4.3, Chloride Level 101, Carbon Dioxide Level 30, Anion Gap 8, Blood Urea Nitrogen 19H, Creatinine 0.8, Estimat Glomerular Filtration Rate > 60, Glucose Level 113#H, Calcium Level 9.7 Height (Feet): 5 Height (Inches): 6.00 Weight (Pounds): 123 Neck: normal alignment Cardiovascular: normal rate Respiratory/Chest: lungs clear Abdomen: non tender Edema: no edema noted Arm (L), no edema noted Arm (R), no edema noted Leg (L), no edema noted Leg (R), no edema noted Pedal (L), no edema noted Pedal (R), no edema noted Generalized Objective Item Value Date Time Bedside Blood Glucose 110 mg/dl 07/13/17 0330 Bedside Blood Glucose 173 mg/dl H 07/12/17 2334 Bedside Blood Glucose 133 mg/dl H 07/12/17 2114 Bedside Blood Glucose 200 mg/dl H 07/12/17 1616 Bedside Blood Glucose 215 mg/dl H 07/12/17 1150 Bedside Blood Glucose 280 mg/dl H 07/12/17 0904 JADIEL MARCANO Jul 13, 2017 06:33
[2017-07-13] MEDS: Losartan 50mg tab NG SCH ×2 (08:22→21:27)
[2017-07-13] MEDS: Levemir Flexpen SUBQ SCH ×2 (08:29→21:32)
--- NOTE | 2017-07-13 10:01 | GI Progress Note ---
Assessment/Plan Problems: (1) Shock liver ICD Codes: K72.00 - Acute and subacute hepatic failure without coma SNOMED: 898742902 (2) Anoxic cerebral edema ICD Codes: G93.6 - Cerebral edema; R09.02 - Hypoxemia SNOMED: 4048408, 984973361 (3) Transaminitis ICD Codes: R74.0 - Nonspecific elevation of levels of transaminase and lactic acid dehydrogenase [LDH] SNOMED: 627164132, 528774420 (4) Alcohol withdrawal ICD Codes: F10.239 - Alcohol dependence with withdrawal, unspecified SNOMED: 689725275 (5) Pancreatitis ICD Codes: K85.90 - Acute pancreatitis without necrosis or infection, unspecified SNOMED: 65053121 Status: progressing Status Narrative Discussed with Dr. Rico. Assessment/Plan possible PEG sunday >> patient now on NC 3L - consent obtained. cont NGTFs electrolyte correction >> increase NGTF free water flushes fu labs Subjective Subjective limited Objective Last 24 Hour Vital Signs Date Time Temp Pulse Resp B/P (MAP) Pulse Ox O2 Delivery O2 Flow Rate FiO2 07/13/17 08:45 96 07/13/17 08:22 145/107 07/13/17 04:00 98.2 98 28 136/88 100 Venturi Mask 55 07/13/17 04:00 100 07/13/17 00:00 98.2 99 32 147/97 100 Venturi Mask 55 07/12/17 21:14 144/95 07/12/17 21:00 Venturi Mask 12.0 50 07/12/17 20:00 100 07/12/17 20:00 98.0 98 32 149/109 100 Venturi Mask 55 07/12/17 20:00 98 Venturi Mask 12.0 50 07/12/17 16:00 91 07/12/17 16:00 97.9 100 30 139/95 100 Venturi Mask 55 07/12/17 12:00 92 07/12/17 12:00 97.7 91 28 124/83 99 Venturi Mask 55 Intake and Output 07/12/17 07/13/17 19:00 07:00 Intake Total 2050 ml 1515 ml Output Total 1350 ml 800 ml Balance 700 ml 715 ml Free Water 400 ml 200 ml IV Total 1030 ml 880 ml Tube Feeding 620 ml 375 ml Other 60 ml Output Urine Total 1200 ml 800 ml Stool Total 150 ml # Bowel Movements 100 Laboratory Tests Test 07/12/17 10:20 07/13/17 05:25 White Blood Count 11.4 K/UL (4.8-10.8) H 9.2 K/UL (4.8-10.8) Red Blood Count 2.98 M/UL (4.70-6.10) L 3.23 M/UL (4.70-6.10) L Hemoglobin 9.5 G/DL (14.2-18.0) L 10.5 G/DL (14.2-18.0) L Hematocrit 28.9 % (42.0-52.0) L 31.5 % (42.0-52.0) L Mean Corpuscular Volume 97 FL (80-99) 97 FL (80-99) Mean Corpuscular Hemoglobin 32.0 PG (27.0-31.0) H 32.6 PG (27.0-31.0) H Mean Corpuscular Hemoglobin Concent 33.0 G/DL (32.0-36.0) 33.4 G/DL (32.0-36.0) Red Cell Distribution Width 11.4 % (11.6-14.8) L 11.8 % (11.6-14.8) Platelet Count 294 K/UL (150-450) 342 K/UL (150-450) Mean Platelet Volume 8.8 FL (6.5-10.1) 9.2 FL (6.5-10.1) Neutrophils (%) (Auto) 74.9 % (45.0-75.0) 72.3 % (45.0-75.0) Lymphocytes (%) (Auto) 12.9 % (20.0-45.0) L 14.9 % (20.0-45.0) L Monocytes (%) (Auto) 8.4 % (1.0-10.0) 8.7 % (1.0-10.0) Eosinophils (%) (Auto) 2.9 % (0.0-3.0) 3.2 % (0.0-3.0) H Basophils (%) (Auto) 0.9 % (0.0-2.0) 0.9 % (0.0-2.0) Sodium Level 140 MMOL/L (136-145) 139 MMOL/L (136-145) Potassium Level 4.3 MMOL/L (3.5-5.1) 4.3 MMOL/L (3.5-5.1) Chloride Level 104 MMOL/L (98-107) 101 MMOL/L (98-107) Carbon Dioxide Level 31 MMOL/L (21-32) 30 MMOL/L (21-32) Anion Gap 5 mmol/L (5-15) 8 mmol/L (5-15) Blood Urea Nitrogen 23 mg/dL (7-18) H 19 mg/dL (7-18) H Creatinine 0.8 MG/DL (0.55-1.30) 0.8 MG/DL (0.55-1.30) Estimat Glomerular Filtration Rate > 60 mL/min (>60) > 60 mL/min (>60) Glucose Level 240 MG/DL (74-106) H 113 MG/DL (74-106) #H Calcium Level 9.1 MG/DL (8.5-10.1) 9.7 MG/DL (8.5-10.1) Height (Feet): 5 Height (Inches): 6.00 Weight (Pounds): 123 General Appearance: lethargic Cardiovascular: normal rate Respiratory/Chest: other - 3LNC Abdominal Exam: soft, other - NGT Lashawn Mason N.P. Jul 13, 2017 10:01
--- NOTE | 2017-07-13 10:20 | Consultation ---
Consult Note Assessment/Plan IMPRESSION: 1. Respiratory failure; extubated 2. Cannabis usage. 3. Diabetic ketoacidosis, resolved 4. Troponin leak. 5. Tachycardia. 6. Anoxic brain injury DISCUSSION: wean O2 to n/c proceed w PEG will need SNF Poor prognosis Continue oral airway/suctioning CXR clear EJ MUNOZ Jul 13, 2017 10:20
--- NOTE | 2017-07-13 12:58 | Wound Care Consultation ---
Wound Assessment Wound Assessment : Wound Number: 1 Wound Present on Admission: No New Wound: Yes Status Change of Wound: No Wound Location Body Site Modif: left Wound Location Body Site: sacral Wound Type: pressure ulcer Clarissa Test: Does not Clarissa Pressure Ulcer Stage: Unstageable Wound Thickness: Full Thickness Wound Length: 5.0 Wound Width: 4.5 Wound Depth: utd Percent of Wound Bed Yellow/Wh: 60 Percent of Wound Purple/Maroon: 40 Wound Drainage Description: Serosanguineous Wound Drainage Amount: Scant Wound Drainage Odor: None/Absent Tissue Surrounding Wound: Intact Wound General Appearance: Reddened - purple/maroon, yellow, Draining Wound Comment #1 Left sacral area unstagable pressure ulcer. #2 Left upper back DTI pressure ulcer. Resolved. Intact scar tissue noted #3 Mid and right upper back scattered DTI pressure ulcer. Resolved. Intact scar tissue noted #4 Left tip of the big toe DTI pressure ulcer. Skin still intact #5 Right tip of the big toe DTI pressure ulcer. Skin still intact #6 Left heel DTI pressure ulcer. Skin still intact #7 Right heel DTI pressure ulcer. Skin still intact #8 Left ear DTI pressure ulcer. Skin still intact Reassessed this Pt today. Good progress noted in all sites. Left sacral DTI Revealed as unstageable pressure ulcer. significantly smaller in size. will change wound care treatment to Santyl ointment as ordered. Recommendation -Local wound care per protocol -Keep clean and dry -Optimize nutrition -Turn and reposition -Offload both heels -Arterial/venous duplex study -Heel protector on both heels -Low air loss P200 mattress -Assess and f/u accordingly for any changes SHIRA VALENTINE RN Jul 13, 2017 12:58
--- NOTE | 2017-07-13 13:02 | Cardiac Electrophysiology PN ---
Assessment/Plan Assessment/Plan 1. Troponin leak due to renal failure. EF 60%. Never had CP during hospitalization. 2. Tachycardia due to diabetic ketoacidosis and sepsis. 3. Respiratory failure . S/P Terminal extubation. Full code again.On oxygen. 4. Pneumonia on abx per Dr. Cummings 5. Pancreatitis. 6. ARF. Creatinine now Normal. 7. Marijuana use. 8. Suspect diffuse cerebral anoxia and edema with decorticate rigidity per Dr Cano. 9. Alcohol withdrawal. 10. Severe Hypernatremia. Na 165, improved to 139 11. Full code. 12. Dysphagia. NG feeding now. PEG when stable from respiratory stand point 13. HTN. On prn Clonidine DW RN Subjective Subjective On MARIE, on iv Abx in SR.Opens eyes and coughs spontaneously Objective Last 24 Hour Vital Signs Date Time Temp Pulse Resp B/P (MAP) Pulse Ox O2 Delivery O2 Flow Rate FiO2 07/13/17 12:00 97.7 111 24 145/91 100 Nasal Cannula 3.0 07/13/17 09:36 99 Nasal Cannula 3.0 32 07/13/17 09:36 Nasal Cannula 3.0 32 07/13/17 08:45 96 07/13/17 08:22 145/107 07/13/17 08:00 97.0 107 22 145/107 100 Venturi Mask 55 07/13/17 04:00 98.2 98 28 136/88 100 Venturi Mask 55 07/13/17 04:00 100 07/13/17 00:00 98.2 99 32 147/97 100 Venturi Mask 55 07/12/17 21:14 144/95 07/12/17 21:00 Venturi Mask 12.0 50 07/12/17 20:00 100 07/12/17 20:00 98.0 98 32 149/109 100 Venturi Mask 55 07/12/17 20:00 98 Venturi Mask 12.0 50 07/12/17 16:00 91 07/12/17 16:00 97.9 100 30 139/95 100 Venturi Mask 55 Intake and Output 07/12/17 07/13/17 19:00 07:00 Intake Total 2050 ml 1560 ml Output Total 1350 ml 800 ml Balance 700 ml 760 ml Free Water 400 ml 200 ml IV Total 1030 ml 880 ml Tube Feeding 620 ml 420 ml Other 60 ml Output Urine Total 1200 ml 800 ml Stool Total 150 ml # Bowel Movements 100 Laboratory Tests Test 07/13/17 05:25 White Blood Count 9.2 K/UL (4.8-10.8) Red Blood Count 3.23 M/UL (4.70-6.10) L Hemoglobin 10.5 G/DL (14.2-18.0) L Hematocrit 31.5 % (42.0-52.0) L Mean Corpuscular Volume 97 FL (80-99) Mean Corpuscular Hemoglobin 32.6 PG (27.0-31.0) H Mean Corpuscular Hemoglobin Concent 33.4 G/DL (32.0-36.0) Red Cell Distribution Width 11.8 % (11.6-14.8) Platelet Count 342 K/UL (150-450) Mean Platelet Volume 9.2 FL (6.5-10.1) Neutrophils (%) (Auto) 72.3 % (45.0-75.0) Lymphocytes (%) (Auto) 14.9 % (20.0-45.0) L Monocytes (%) (Auto) 8.7 % (1.0-10.0) Eosinophils (%) (Auto) 3.2 % (0.0-3.0) H Basophils (%) (Auto) 0.9 % (0.0-2.0) Sodium Level 139 MMOL/L (136-145) Potassium Level 4.3 MMOL/L (3.5-5.1) Chloride Level 101 MMOL/L (98-107) Carbon Dioxide Level 30 MMOL/L (21-32) Anion Gap 8 mmol/L (5-15) Blood Urea Nitrogen 19 mg/dL (7-18) H Creatinine 0.8 MG/DL (0.55-1.30) Estimat Glomerular Filtration Rate > 60 mL/min (>60) Glucose Level 113 MG/DL (74-106) #H Calcium Level 9.7 MG/DL (8.5-10.1) Objective HEAD AND NECK: No JVD.Oxygen mask on. NG tube in. LUNGS: Clear. CARDIOVASCULAR: Regular S1 and S2 with no gallop or murmur. ABDOMEN: Soft and nontender. EXTREMITIES: No pitting edema. ALBERT ROWAN Jul 13, 2017 13:02
--- NOTE | 2017-07-13 17:10 | Infectious Diseases Prog Note ---
Assessment/Plan Problems: (1) Pneumonia Assessment & Plan: due to Acinetobacter baumannii , continue ceftazidime for two weeks to finish his course of treatment , EOT 07/18/16, monitor CXR. continue aspiration precaution and suctioning to avoid aspiration (2) Pancreatitis Assessment & Plan: improved , monitor lipase, GI is following, restarted on tube feeding. (3) Cardiopulmonary arrest Assessment & Plan: was extubated from mechanical ventilation , as per family request and made DNR and started on morphin drip, but family changed his code status to full code , he is on tele monitor , cardiology is following , may need tracheostomy and PEG placement . (4) Anoxic cerebral edema Assessment & Plan: with no improvement, has poor prognosis , no tracheostomy , or PEG tube placement as per family , now full code as per family request , but postural and spastic and unresponsive . (5) Dysphagia Assessment & Plan: he will need permanent tube feeding for nutritional support , if family wants to proceed with full support (6) Hypernatremia Assessment & Plan: recommend hydration with free water , to bring his sodium down slowly Subjective ROS Limited/Unobtainable: Yes Allergies: Coded Allergies: No Known Allergies (Unverified , 06/15/17) Subjective he is still unresponsive , on high flow oxygen via mask, in MARIE , postural and spastic in the lower extremities , dosen't follow commands , afebrile .opens eyes spontaneously on/off . dosen't track Objective Vital Signs Last 24 Hour Vital Signs Date Time Temp Pulse Resp B/P (MAP) Pulse Ox O2 Delivery O2 Flow Rate FiO2 07/13/17 16:00 97.7 111 24 145/91 100 Nasal Cannula 3.0 07/13/17 12:00 95 07/13/17 12:00 97.7 111 24 145/91 100 Nasal Cannula 3.0 07/13/17 09:36 99 Nasal Cannula 3.0 32 07/13/17 09:36 Nasal Cannula 3.0 32 07/13/17 08:45 96 07/13/17 08:22 145/107 07/13/17 08:00 97.0 107 22 145/107 100 Venturi Mask 55 07/13/17 04:00 98.2 98 28 136/88 100 Venturi Mask 55 07/13/17 04:00 100 07/13/17 00:00 98.2 99 32 147/97 100 Venturi Mask 55 07/12/17 21:14 144/95 07/12/17 21:00 Venturi Mask 12.0 50 07/12/17 20:00 100 07/12/17 20:00 98.0 98 32 149/109 100 Venturi Mask 55 07/12/17 20:00 98 Venturi Mask 12.0 50 Height (Feet): 5 Height (Inches): 6.00 Weight (Pounds): 123 General Appearance: WD/WN, no acute distress, cachetic HEENT: normocephalic, atraumatic, anicteric, mucous membranes moist, other - open eyes spontaneously , dosent track Respiratory/Chest: normal breath sounds, no respiratory distress, no accessory muscle use, decreased breath sounds, crackles/rales Cardiovascular: normal peripheral pulses, normal rate, regular rhythm, no gallop/murmur, no JVD Abdomen: normal bowel sounds, soft, non tender, no organomegaly, non distended , no mass, no scars Extremities: no cyanosis, no clubbing Skin: no rash, no lesions, no ulcers Neurologic/Psychiatric: alert, unresponsiveness Laboratory Tests Test 07/13/17 05:25 White Blood Count 9.2 K/UL (4.8-10.8) Red Blood Count 3.23 M/UL (4.70-6.10) L Hemoglobin 10.5 G/DL (14.2-18.0) L Hematocrit 31.5 % (42.0-52.0) L Mean Corpuscular Volume 97 FL (80-99) Mean Corpuscular Hemoglobin 32.6 PG (27.0-31.0) H Mean Corpuscular Hemoglobin Concent 33.4 G/DL (32.0-36.0) Red Cell Distribution Width 11.8 % (11.6-14.8) Platelet Count 342 K/UL (150-450) Mean Platelet Volume 9.2 FL (6.5-10.1) Neutrophils (%) (Auto) 72.3 % (45.0-75.0) Lymphocytes (%) (Auto) 14.9 % (20.0-45.0) L Monocytes (%) (Auto) 8.7 % (1.0-10.0) Eosinophils (%) (Auto) 3.2 % (0.0-3.0) H Basophils (%) (Auto) 0.9 % (0.0-2.0) Sodium Level 139 MMOL/L (136-145) Potassium Level 4.3 MMOL/L (3.5-5.1) Chloride Level 101 MMOL/L (98-107) Carbon Dioxide Level 30 MMOL/L (21-32) Anion Gap 8 mmol/L (5-15) Blood Urea Nitrogen 19 mg/dL (7-18) H Creatinine 0.8 MG/DL (0.55-1.30) Estimat Glomerular Filtration Rate > 60 mL/min (>60) Glucose Level 113 MG/DL (74-106) #H Calcium Level 9.7 MG/DL (8.5-10.1) Current Medications Medications (Trade) Dose Ordered Sig/[place] Route PRN Reason Start Time Stop Time Status Last Admin Dose Admin Acetaminophen (Tylenol) 500 mg Q6HR PRN NG Mild Pain/Temp > 100.5 07/01/17 02:45 07/31/17 02:44 07/08/17 20:09 Ceftazidime 1 gm/ Sodium Chloride 55 ml @ 110 mls/hr Q8HR IV 07/11/17 22:00 07/18/17 21:59 07/13/17 14:15 Clonidine HCl (Catapres Tab) 0.1 mg Q2H PRN NG For High Blood Pressure 07/10/17 16:00 08/09/17 15:59 Collagenase (Santyl) 1 applic DAILY TOPIC 07/13/17 15:00 08/12/17 14:59 07/13/17 15:57 Dextrose (Dextrose 50%) STAT PRN IV Hypoglycemia 07/01/17 22:30 07/29/17 22:29 07/12/17 03:56 Dextrose/ Electrolytes 1,000 ml @ 75 mls/hr [id number] IV 07/08/17 15:00 08/07/17 14:59 07/13/17 14:24 Insulin Aspart (NovoLOG) Q4H SUBQ 07/06/17 19:30 08/05/17 19:29 07/13/17 15:55 Insulin Detemir (Levemir) 20 units Q12HR SUBQ 07/11/17 21:00 08/10/17 20:59 07/13/17 08:29 Losartan Potassium (Cozaar) 50 mg EVERY 12 HOURS NG 07/07/17 21:00 08/06/17 20:59 07/13/17 08:22 Saad Cummings M.D. Jul 13, 2017 17:10
--- NOTE | 2017-07-13 17:40 | Nephrology Progress Note ---
Assessment/Plan Problem List: (1) Hypernatremia Assessment: Improved (2) Hypokalemia Assessment: corrected (3) Fever (4) Acidosis (5) Respiratory distress (6) Pancreatitis (7) Elevated troponin (8) Alcohol withdrawal (9) Pneumonia (10) Sepsis (11) Cardiopulmonary arrest (12) Metabolic acidosis (13) DKA (diabetic ketoacidosis) (14) Renal failure Assessment: Improved Plan Continue current treatment plan D5W+KCL@ 75cc/hr Accu-check q4h Continue free water flushes Monitor temp Suspect diffuse cerebral anoxia and edema with decorticate rigidity per Dr Cano. Monitor lytes, correct prn Monitor neuro status, f/u with neurology rec Continue NG tube feeding and IVF Pending PEG placement Strict glycemic control Monitor renal function on current abx Abx per ID Monitor intake and output Continue carpenter AM labs Subjective ROS Limited/Unobtainable: Yes Subjective Seen in MARIE,unresponsive, on venturi mask Objective Objective Last 24 Hour Vital Signs Date Time Temp Pulse Resp B/P (MAP) Pulse Ox O2 Delivery O2 Flow Rate FiO2 07/13/17 16:01 98.1 107 30 142/92 100 Nasal Cannula 3.0 07/13/17 12:00 95 07/13/17 12:00 97.7 111 24 145/91 100 Nasal Cannula 3.0 07/13/17 09:36 99 Nasal Cannula 3.0 32 07/13/17 09:36 Nasal Cannula 3.0 32 07/13/17 08:45 96 07/13/17 08:22 145/107 07/13/17 08:00 97.0 107 22 145/107 100 Venturi Mask 55 07/13/17 04:00 98.2 98 28 136/88 100 Venturi Mask 55 07/13/17 04:00 100 07/13/17 00:00 98.2 99 32 147/97 100 Venturi Mask 55 07/12/17 21:14 144/95 07/12/17 21:00 Venturi Mask 12.0 50 07/12/17 20:00 100 07/12/17 20:00 98.0 98 32 149/109 100 Venturi Mask 55 07/12/17 20:00 98 Venturi Mask 12.0 50 Intake and Output 07/12/17 07/13/17 19:00 07:00 Intake Total 2050 ml 1560 ml Output Total 1350 ml 800 ml Balance 700 ml 760 ml Free Water 400 ml 200 ml IV Total 1030 ml 880 ml Tube Feeding 620 ml 420 ml Other 60 ml Output Urine Total 1200 ml 800 ml Stool Total 150 ml # Bowel Movements 100 Laboratory Tests 07/13/17 05:25: White Blood Count 9.2, Red Blood Count 3.23L, Hemoglobin 10.5L, Hematocrit 31.5L , Mean Corpuscular Volume 97, Mean Corpuscular Hemoglobin 32.6H, Mean Corpuscular Hemoglobin Concent 33.4, Red Cell Distribution Width 11.8, Platelet Count 342, Mean Platelet Volume 9.2, Neutrophils (%) (Auto) 72.3, Lymphocytes (% ) (Auto) 14.9L, Monocytes (%) (Auto) 8.7, Eosinophils (%) (Auto) 3.2H, Basophils (%) (Auto) 0.9, Sodium Level 139, Potassium Level 4.3, Chloride Level 101, Carbon Dioxide Level 30, Anion Gap 8, Blood Urea Nitrogen 19H, Creatinine 0.8, Estimat Glomerular Filtration Rate > 60, Glucose Level 113#H, Calcium Level 9.7 Height (Feet): 5 Height (Inches): 6.00 Weight (Pounds): 123 General Appearance: no apparent distress Neck: stiff neck Cardiovascular: normal rate Respiratory/Chest: decreased breath sounds, other - venturi mask Abdomen: soft Genitourinary/Rectal: other - carpenter Extremities: other - rigidity Neurologic: unresponsive Hannah Johnson N.P. Jul 13, 2017 17:40
--- NOTE | 2017-07-13 20:00 | Consultation ---
DATE OF CONSULTATION: 07/13/2017 PULMONARY SECOND OPINION CONSULTATION REASON FOR CONSULTATION: The patient is seen at the request of Dr. Matson today for a second opinion consultation regarding respiratory failure. He is followed by Dr. Floyd for pulmonary medicine. HISTORY OF PRESENT ILLNESS: This is a 32-year-old man with history of diabetes, who came to the hospital unresponsive. He was found to have diabetic ketoacidosis and had evidence of marijuana use. He was admitted to the hospital and was intubated. He gradually improved and was able to be extubated, but his mental status remained poor with evidence of anoxic encephalopathy or possibly hypoglycemic encephalopathy. He remains on high-flow oxygen by mask and requires placement of a permanent feeding tube. This has not been possible to date because of high oxygen requirements. He was initially made DNR and was extubated with plans for terminal care, but he survived and now he has been made Full Code again by the family. PAST MEDICAL HISTORY: Diabetes. REVIEW OF SYSTEMS: Cannot be obtained. PHYSICAL EXAMINATION: GENERAL: The patient is unresponsive, lying in bed. He is a thin male, who appears to be stated age. VITAL SIGNS: Blood pressure today is 145/107, temperature is normal, pulse is 110, and respirations 22 on high-flow oxygen mask at 50%. The saturation is 100%. SKIN: Warm and dry. HEENT: The head is normocephalic. NECK: No jugular venous distention. CHEST: Few rhonchi. There is an NG tube in place. CARDIAC: Rhythm is regular. Tachycardia. ABDOMEN: Soft and nontender. Liver and spleen are not enlarged. EXTREMITIES: No clubbing, cyanosis, or edema. LABORATORY STUDIES: Show chemistry is satisfactory. Blood sugar is under control. Most recent albumin is 2.0 up from 1.7 about two weeks ago. Urinalysis shows no signs of active infection. Blood gases are satisfactory. Chest x-ray done on 07/08/2017 shows some basilar atelectasis and possible small effusion with mild interstitial edema. IMPRESSION: 1. Respiratory failure, extubated, now with improved oxygenation. 2. Cannabis usage. 3. Diabetic ketoacidosis, resolved. 4. Tachycardia. 5. Anoxic encephalopathy. PLAN: We will wean oxygen to a nasal cannula. I think we can proceed with placement of a gastric tube. He will need long-term care. His prognosis ultimately is poor. If he has recurrent respiratory failure, he may require placement of a tracheostomy. We will continue respiratory treatments and Dr. Floyd will follow. I have notified Dr. Floyd and staff my recommendations today. Eugene Maria M.D. DR: ROLANDO JOB#: [id number] CC:
[2017-07-14] VITALS: BP 150/97
[2017-07-14] MEDS: NovoLOG Insulin Flexpen SUBQ SCH ×6 (03:30→23:51)
[2017-07-14 04:00] VITALS: BP 145/95
[2017-07-14] MEDS: D5W w/KCl 20mEq 1,000 ML IV SCH ×2 (04:03→18:20)
[2017-07-14 04:37] LABS: BASOPHILS % (AUTO) 1.4 % (0.0-2.0); EOSINOPHILS % (AUTO) 2.3 % (0.0-3.0); HEMOGLOBIN 9.5 G/DL (14.2-18.0); LYMPHOCYTES % (AUTO) 13.9 % (20.0-45.0); MEAN CORPUSCULAR VOLUME 96 FL (80-99); MONOCYTES % (AUTO) 8.9 % (1.0-10.0); NEUTROPHILS % (AUTO) 73.5 % (45.0-75.0); PLATELET COUNT 409 K/UL (150-450); RED BLOOD COUNT 2.93 M/UL (4.70-6.10); RED CELL DISTRIBUTION WIDTH 11.8 % (11.6-14.8); WHITE BLOOD COUNT 10.5 K/UL (4.8-10.8)
[2017-07-14 05:47] LABS: ANION GAP 7 mmol/L (5-15); BLOOD UREA NITROGEN 19 mg/dL (7-18); CALCIUM 9.4 MG/DL (8.5-10.1); CARBON DIOXIDE 30 MMOL/L (21-32); CHLORIDE 102 MMOL/L (98-107); CREATININE 0.7 MG/DL (0.55-1.30); POTASSIUM 4.1 MMOL/L (3.5-5.1); SODIUM 139 MMOL/L (136-145)
[2017-07-14 08:00] VITALS: BP 155/86
[2017-07-14] MEDS: Losartan 50mg tab NG SCH ×2 (09:03→20:32)
--- NOTE | 2017-07-14 09:23 | Pulmonology Progress Note ---
Assessment/Plan Assessment/Plan IMPRESSION: 1. Respiratory failure; extubated 2. Cannabis usage. 3. Diabetic ketoacidosis. 4. Troponin leak. 5. Tachycardia. 6. Anoxic brain injury DISCUSSION: Continue present management and care. now extubated Poor prognosis Remains on supplemental O2; now with lower FiO2 ABG adequate Continue oral airway/suctioning CXR clear Subjective Interval Events: Oxygenating better on nasal canulae Constitutional: Reports: no symptoms HEENT: Repors: no symptoms Respiratory: Reports: no symptoms Cardiovascular: Reports: no symptoms Gastrointestinal/Abdominal: Reports: no symptoms Genitourinary: Reports: no symptoms Allergies: Coded Allergies: No Known Allergies (Unverified , 06/15/17) Objective Last 24 Hour Vital Signs Date Time Temp Pulse Resp B/P (MAP) Pulse Ox O2 Delivery O2 Flow Rate FiO2 07/14/17 09:03 155/86 07/14/17 08:00 97.7 114 23 155/86 98 Nasal Cannula 3.0 07/14/17 04:00 97.7 110 24 145/95 99 Nasal Cannula 3.0 07/14/17 04:00 118 07/14/17 00:00 111 07/14/17 00:00 97.9 108 24 150/97 100 Nasal Cannula 3.0 07/13/17 21:27 142/92 07/13/17 20:00 97.9 108 24 148/95 98 Nasal Cannula 3.0 07/13/17 20:00 108 07/13/17 19:20 98 Nasal Cannula 3.0 32 07/13/17 19:20 Nasal Cannula 3.0 32 07/13/17 16:01 98.1 107 30 142/92 100 Nasal Cannula 3.0 07/13/17 16:00 112 07/13/17 12:00 95 07/13/17 12:00 97.7 111 24 145/91 100 Nasal Cannula 3.0 07/13/17 09:36 99 Nasal Cannula 3.0 32 07/13/17 09:36 Nasal Cannula 3.0 32 Intake and Output 07/13/17 07/14/17 19:00 07:00 Intake Total 825 ml 1870 ml Output Total 1250 ml 1200 ml Balance -425 ml 670 ml Free Water 200 ml 200 ml IV Total 75 ml 1010 ml Tube Feeding 550 ml 660 ml Output Urine Total 1250 ml 1200 ml # Bowel Movements 50 100 General Appearance: no acute distress HEENT: normocephalic Respiratory/Chest: chest wall non-tender, lungs clear Cardiovascular: normal peripheral pulses, normal rate Laboratory Tests 07/14/17 03:20: White Blood Count 10.5, Red Blood Count 2.93L, Hemoglobin 9.5L, Hematocrit 28.0L , Mean Corpuscular Volume 96, Mean Corpuscular Hemoglobin 32.6H, Mean Corpuscular Hemoglobin Concent 34.1, Red Cell Distribution Width 11.8, Platelet Count 409, Mean Platelet Volume 8.5, Neutrophils (%) (Auto) 73.5, Lymphocytes (% ) (Auto) 13.9L, Monocytes (%) (Auto) 8.9, Eosinophils (%) (Auto) 2.3, Basophils (%) (Auto) 1.4 07/14/17 03:30: Sodium Level 139, Potassium Level 4.1, Chloride Level 102, Carbon Dioxide Level 30, Anion Gap 7, Blood Urea Nitrogen 19H, Creatinine 0.7, Estimat Glomerular Filtration Rate > 60, Glucose Level 67L, Calcium Level 9.4 Current Medications Medications (Trade) Dose Ordered Sig/Conr[place] Route PRN Reason Start Time Stop Time Status Last Admin Dose Admin Acetaminophen (Tylenol) 500 mg Q6HR PRN NG Mild Pain/Temp > 100.5 07/01/17 02:45 07/31/17 02:44 07/08/17 20:09 Ceftazidime 1 gm/ Sodium Chloride 55 ml @ 110 mls/hr Q8HR IV 07/11/17 22:00 07/18/17 21:59 07/14/17 06:02 Clonidine HCl (Catapres Tab) 0.1 mg Q2H PRN NG For High Blood Pressure 07/10/17 16:00 08/09/17 15:59 Collagenase (Santyl) 1 applic DAILY TOPIC 07/13/17 15:00 08/12/17 14:59 07/14/17 09:04 Dextrose (Dextrose 50%) STAT PRN IV Hypoglycemia 07/01/17 22:30 07/29/17 22:29 07/12/17 03:56 Dextrose/ Electrolytes 1,000 ml @ 75 mls/hr [id number] IV 07/08/17 15:00 08/07/17 14:59 2/3/18 04:03 Insulin Aspart (NovoLOG) Q4H SUBQ 07/06/17 19:30 08/05/17 19:29 07/14/17 08:53 Insulin Detemir (Levemir) 20 units Q12HR SUBQ 07/11/17 21:00 08/10/17 20:59 07/13/17 21:32 Losartan Potassium (Cozaar) 50 mg EVERY 12 HOURS NG 07/07/17 21:00 08/06/17 20:59 07/14/17 09:03 Paulo Floyd MD Jul 14, 2017 09:23
[2017-07-14] MEDS: Levemir Flexpen SUBQ SCH ×2 (09:25→20:31)
--- NOTE | 2017-07-14 10:28 | General Progress Note ---
Assessment/Plan Problem List: (1) DKA (diabetic ketoacidosis) ICD Codes: E13.10 - Other specified diabetes mellitus with ketoacidosis without coma SNOMED: 40461265, 748591798 Qualifiers: Qualified Codes: E10.11 - Type 1 diabetes mellitus with ketoacidosis with coma (2) Transaminitis ICD Codes: R74.0 - Nonspecific elevation of levels of transaminase and lactic acid dehydrogenase [LDH] SNOMED: 992706488, 744215582 (3) Elevated troponin ICD Codes: R74.8 - Abnormal levels of other serum enzymes SNOMED: 170612095, 621381873, 631821663 Assessment/Plan possible PEG sunday >> patient now on NC 3L - consent obtained. cont NGTFs electrolyte correction >> increase NGTF free water flushes fu labs Subjective ROS Limited/Unobtainable: No Allergies: Coded Allergies: No Known Allergies (Unverified , 06/15/17) Subjective family wants full code Objective Last 24 Hour Vital Signs Date Time Temp Pulse Resp B/P (MAP) Pulse Ox O2 Delivery O2 Flow Rate FiO2 07/14/17 09:03 155/86 07/14/17 08:00 97.7 114 23 155/86 98 Nasal Cannula 3.0 07/14/17 08:00 111 07/14/17 04:00 97.7 110 24 145/95 99 Nasal Cannula 3.0 07/14/17 04:00 118 07/14/17 00:00 111 07/14/17 00:00 97.9 108 24 150/97 100 Nasal Cannula 3.0 07/13/17 21:27 142/92 07/13/17 20:00 97.9 108 24 148/95 98 Nasal Cannula 3.0 07/13/17 20:00 108 07/13/17 19:20 98 Nasal Cannula 3.0 32 07/13/17 19:20 Nasal Cannula 3.0 32 07/13/17 16:01 98.1 107 30 142/92 100 Nasal Cannula 3.0 07/13/17 16:00 112 07/13/17 12:00 95 07/13/17 12:00 97.7 111 24 145/91 100 Nasal Cannula 3.0 Intake and Output 07/13/17 07/14/17 19:00 07:00 Intake Total 825 ml 1870 ml Output Total 1250 ml 1200 ml Balance -425 ml 670 ml Free Water 200 ml 200 ml IV Total 75 ml 1010 ml Tube Feeding 550 ml 660 ml Output Urine Total 1250 ml 1200 ml # Bowel Movements 50 100 Laboratory Tests 07/14/17 03:20: White Blood Count 10.5, Red Blood Count 2.93L, Hemoglobin 9.5L, Hematocrit 28.0L , Mean Corpuscular Volume 96, Mean Corpuscular Hemoglobin 32.6H, Mean Corpuscular Hemoglobin Concent 34.1, Red Cell Distribution Width 11.8, Platelet Count 409, Mean Platelet Volume 8.5, Neutrophils (%) (Auto) 73.5, Lymphocytes (% ) (Auto) 13.9L, Monocytes (%) (Auto) 8.9, Eosinophils (%) (Auto) 2.3, Basophils (%) (Auto) 1.4 07/14/17 03:30: Sodium Level 139, Potassium Level 4.1, Chloride Level 102, Carbon Dioxide Level 30, Anion Gap 7, Blood Urea Nitrogen 19H, Creatinine 0.7, Estimat Glomerular Filtration Rate > 60, Glucose Level 67L, Calcium Level 9.4 Height (Feet): 5 Height (Inches): 6.00 Weight (Pounds): 147 General Appearance: no apparent distress EENT: normal ENT inspection Neck: supple Cardiovascular: normal rate Respiratory/Chest: decreased breath sounds Abdomen: normal bowel sounds, non tender, soft Extremities: non-tender SAM PEREIRA Jul 14, 2017 10:28
[2017-07-14 12:00] VITALS: BP 145/24
--- NOTE | 2017-07-14 15:08 | Cardiac Electrophysiology PN ---
Assessment/Plan Assessment/Plan 1. Troponin leak due to renal failure. EF 60%. Didn't have CP during hospitalization. 2. Tachycardia due to diabetic ketoacidosis and sepsis. 3. Respiratory failure . S/P Terminal extubation. Full code again.On oxygen. 4. Pneumonia on abx per Dr. Cummings 5. Pancreatitis. 6. ARF. Creatinine now Normal. 7. Marijuana use. 8. Suspect diffuse cerebral anoxia and edema with decorticate rigidity per Dr Cano. 9. Alcohol withdrawal. 10. Severe Hypernatremia. Na 165, improved to 139 11. Full code. 12. Dysphagia. NG feeding now. PEG when stable from respiratory stand point DW RN Subjective Subjective On MARIE, on iv Abx in Sinus tach. RN at bedside. Objective Last 24 Hour Vital Signs Date Time Temp Pulse Resp B/P (MAP) Pulse Ox O2 Delivery O2 Flow Rate FiO2 07/14/17 12:00 97.9 110 21 145/24 98 Nasal Cannula 3.0 07/14/17 12:00 116 07/14/17 09:03 155/86 07/14/17 08:00 97.7 114 23 155/86 98 Nasal Cannula 3.0 07/14/17 08:00 111 07/14/17 04:00 97.7 110 24 145/95 99 Nasal Cannula 3.0 07/14/17 04:00 118 07/14/17 00:00 111 07/14/17 00:00 97.9 108 24 150/97 100 Nasal Cannula 3.0 07/13/17 21:27 142/92 07/13/17 20:00 97.9 108 24 148/95 98 Nasal Cannula 3.0 07/13/17 20:00 108 07/13/17 19:20 98 Nasal Cannula 3.0 32 07/13/17 19:20 Nasal Cannula 3.0 32 07/13/17 16:01 98.1 107 30 142/92 100 Nasal Cannula 3.0 07/13/17 16:00 112 Intake and Output 07/13/17 07/14/17 19:00 07:00 Intake Total 825 ml 1870 ml Output Total 1250 ml 1200 ml Balance -425 ml 670 ml Free Water 200 ml 200 ml IV Total 75 ml 1010 ml Tube Feeding 550 ml 660 ml Output Urine Total 1250 ml 1200 ml # Bowel Movements 50 100 Laboratory Tests Test 07/14/17 03:20 07/14/17 03:30 White Blood Count 10.5 K/UL (4.8-10.8) Red Blood Count 2.93 M/UL (4.70-6.10) L Hemoglobin 9.5 G/DL (14.2-18.0) L Hematocrit 28.0 % (42.0-52.0) L Mean Corpuscular Volume 96 FL (80-99) Mean Corpuscular Hemoglobin 32.6 PG (27.0-31.0) H Mean Corpuscular Hemoglobin Concent 34.1 G/DL (32.0-36.0) Red Cell Distribution Width 11.8 % (11.6-14.8) Platelet Count 409 K/UL (150-450) Mean Platelet Volume 8.5 FL (6.5-10.1) Neutrophils (%) (Auto) 73.5 % (45.0-75.0) Lymphocytes (%) (Auto) 13.9 % (20.0-45.0) L Monocytes (%) (Auto) 8.9 % (1.0-10.0) Eosinophils (%) (Auto) 2.3 % (0.0-3.0) Basophils (%) (Auto) 1.4 % (0.0-2.0) Sodium Level 139 MMOL/L (136-145) Potassium Level 4.1 MMOL/L (3.5-5.1) Chloride Level 102 MMOL/L (98-107) Carbon Dioxide Level 30 MMOL/L (21-32) Anion Gap 7 mmol/L (5-15) Blood Urea Nitrogen 19 mg/dL (7-18) H Creatinine 0.7 MG/DL (0.55-1.30) Estimat Glomerular Filtration Rate > 60 mL/min (>60) Glucose Level 67 MG/DL (74-106) L Calcium Level 9.4 MG/DL (8.5-10.1) Objective HEAD AND NECK: No JVD.Oxygen on. NG tube in. LUNGS: Clear. CARDIOVASCULAR: Regular S1 and S2 with no gallop or murmur. ABDOMEN: Soft and nontender. EXTREMITIES: No pitting edema. ALBERT ROWAN Jul 14, 2017 15:08
[2017-07-14 16:00] VITALS: BP 147/97
--- NOTE | 2017-07-14 17:07 | Infectious Diseases Prog Note ---
Assessment/Plan Problems: (1) Pneumonia Assessment & Plan: due to Acinetobacter baumannii , continue ceftazidime for two weeks to finish his course of treatment , EOT 07/18/16, monitor CXR. continue aspiration precaution and suctioning to avoid aspiration (2) Pancreatitis Assessment & Plan: improved , monitor lipase, GI is following, restarted on tube feeding. (3) Cardiopulmonary arrest Assessment & Plan: was extubated from mechanical ventilation , as per family request and made DNR and started on morphin drip, but family changed his code status to full code , he is on tele monitor , cardiology is following , may need tracheostomy and PEG placement . (4) Anoxic cerebral edema Assessment & Plan: with no improvement, has poor prognosis , no tracheostomy , or PEG tube placement as per family , now full code as per family request , but postural and spastic and unresponsive . (5) Dysphagia Assessment & Plan: he will need permanent tube feeding for nutritional support , if family wants to proceed with full support (6) Hypernatremia Assessment & Plan: recommend hydration with free water , to bring his sodium down slowly Subjective ROS Limited/Unobtainable: Yes Allergies: Coded Allergies: No Known Allergies (Unverified , 06/15/17) Subjective he is still unresponsive , on high flow oxygen via mask, in MARIE , postural and spastic in the lower extremities , dosen't follow commands , afebrile .opens eyes spontaneously on/off . dosen't track Objective Vital Signs Last 24 Hour Vital Signs Date Time Temp Pulse Resp B/P (MAP) Pulse Ox O2 Delivery O2 Flow Rate FiO2 07/14/17 12:00 97.9 110 21 145/24 98 Nasal Cannula 3.0 07/14/17 12:00 116 07/14/17 09:03 155/86 07/14/17 08:00 97.7 114 23 155/86 98 Nasal Cannula 3.0 07/14/17 08:00 111 07/14/17 04:00 97.7 110 24 145/95 99 Nasal Cannula 3.0 07/14/17 04:00 118 07/14/17 00:00 111 07/14/17 00:00 97.9 108 24 150/97 100 Nasal Cannula 3.0 07/13/17 21:27 142/92 07/13/17 20:00 97.9 108 24 148/95 98 Nasal Cannula 3.0 07/13/17 20:00 108 07/13/17 19:20 98 Nasal Cannula 3.0 32 07/13/17 19:20 Nasal Cannula 3.0 32 Height (Feet): 5 Height (Inches): 6.00 Weight (Pounds): 147 General Appearance: WD/WN, no acute distress HEENT: normocephalic, atraumatic, anicteric, mucous membranes moist, PERRL Respiratory/Chest: chest wall non-tender, lungs clear, normal breath sounds, no respiratory distress, no accessory muscle use Cardiovascular: normal peripheral pulses, normal rate, regular rhythm, no gallop/murmur, no JVD Abdomen: normal bowel sounds, soft, non tender, no organomegaly, non distended , no mass, no scars Extremities: no cyanosis, no clubbing Skin: no rash, no lesions, no ulcers Neurologic/Psychiatric: unresponsiveness Laboratory Tests Test 07/14/17 03:20 07/14/17 03:30 White Blood Count 10.5 K/UL (4.8-10.8) Red Blood Count 2.93 M/UL (4.70-6.10) L Hemoglobin 9.5 G/DL (14.2-18.0) L Hematocrit 28.0 % (42.0-52.0) L Mean Corpuscular Volume 96 FL (80-99) Mean Corpuscular Hemoglobin 32.6 PG (27.0-31.0) H Mean Corpuscular Hemoglobin Concent 34.1 G/DL (32.0-36.0) Red Cell Distribution Width 11.8 % (11.6-14.8) Platelet Count 409 K/UL (150-450) Mean Platelet Volume 8.5 FL (6.5-10.1) Neutrophils (%) (Auto) 73.5 % (45.0-75.0) Lymphocytes (%) (Auto) 13.9 % (20.0-45.0) L Monocytes (%) (Auto) 8.9 % (1.0-10.0) Eosinophils (%) (Auto) 2.3 % (0.0-3.0) Basophils (%) (Auto) 1.4 % (0.0-2.0) Sodium Level 139 MMOL/L (136-145) Potassium Level 4.1 MMOL/L (3.5-5.1) Chloride Level 102 MMOL/L (98-107) Carbon Dioxide Level 30 MMOL/L (21-32) Anion Gap 7 mmol/L (5-15) Blood Urea Nitrogen 19 mg/dL (7-18) H Creatinine 0.7 MG/DL (0.55-1.30) Estimat Glomerular Filtration Rate > 60 mL/min (>60) Glucose Level 67 MG/DL (74-106) L Calcium Level 9.4 MG/DL (8.5-10.1) Current Medications Medications (Trade) Dose Ordered Sig/Conrado Route PRN Reason Start Time Stop Time Status Last Admin Dose Admin Acetaminophen (Tylenol) 500 mg Q6HR PRN NG Mild Pain/Temp > 100.5 07/01/17 02:45 07/31/17 02:44 07/08/17 20:09 Ceftazidime 1 gm/ Sodium Chloride 55 ml @ 110 mls/hr Q8HR IV 07/11/17 22:00 07/18/17 21:59 07/14/17 14:48 Clonidine HCl (Catapres Tab) 0.1 mg Q2H PRN NG For High Blood Pressure 07/10/17 16:00 08/09/17 15:59 Collagenase (Santyl) 1 applic DAILY TOPIC 07/13/17 15:00 08/12/17 14:59 07/14/17 09:04 Dextrose (Dextrose 50%) STAT PRN IV Hypoglycemia 07/01/17 22:30 07/29/17 22:29 07/12/17 03:56 Dextrose/ Electrolytes 1,000 ml @ 75 mls/hr [id number] IV 07/08/17 15:00 08/07/17 14:59 07/14/17 04:03 Insulin Aspart (NovoLOG) Q4H SUBQ 07/06/17 19:30 08/05/17 19:29 07/14/17 16:49 Insulin Detemir (Levemir) 20 units Q12HR SUBQ 07/11/17 21:00 08/10/17 20:59 07/14/17 09:25 Losartan Potassium (Cozaar) 50 mg EVERY 12 HOURS NG 07/07/17 21:00 08/06/17 20:59 07/14/17 09:03 Saad Cummings M.D. Jul 14, 2017 17:07
[2017-07-14 20:00] VITALS: BP 136/94
--- NOTE | 2017-07-14 22:45 | Nephrology Progress Note ---
Assessment/Plan Problem List: (1) Hyponatremia Assessment: resolved. (2) Sepsis Assessment: improving. (3) Alcohol withdrawal (4) Pneumonia Assessment: resolving. (5) Cardiopulmonary arrest (6) Metabolic acidosis Assessment: resolved. (7) DKA (diabetic ketoacidosis) Assessment: resolved. (8) Transaminitis (9) Hypokalemia (10) Hypernatremia Assessment: resolved. (11) Anoxic encephalopathy syndrome (12) Anoxic cerebral edema (13) Shock liver (14) Fever Assessment: resolved. (15) Respiratory distress (16) Pancreatitis Assessment: resolved (17) Elevated troponin Plan pulm following. FULL CODE. pending PEG/trach when more stable. abx per ID. cardio and neuro following. d/w RN. monitor labs. Subjective Subjective remains on high flow O2. Unresponsive. Objective Objective Last 24 Hour Vital Signs Date Time Temp Pulse Resp B/P (MAP) Pulse Ox O2 Delivery O2 Flow Rate FiO2 07/14/17 20:32 136/94 07/14/17 16:00 109 07/14/17 16:00 98.2 104 23 147/97 93 Nasal Cannula 3.0 07/14/17 12:00 97.9 110 21 145/24 98 Nasal Cannula 3.0 07/14/17 12:00 116 07/14/17 09:03 155/86 07/14/17 08:00 97.7 114 23 155/86 98 Nasal Cannula 3.0 07/14/17 08:00 111 07/14/17 04:00 97.7 110 24 145/95 99 Nasal Cannula 3.0 07/14/17 04:00 118 07/14/17 00:00 111 07/14/17 00:00 97.9 108 24 150/97 100 Nasal Cannula 3.0 Intake and Output 07/13/17 07/14/17 19:00 07:00 Intake Total 825 ml 1870 ml Output Total 1250 ml 1200 ml Balance -425 ml 670 ml Free Water 200 ml 200 ml IV Total 75 ml 1010 ml Tube Feeding 550 ml 660 ml Output Urine Total 1250 ml 1200 ml # Bowel Movements 50 100 Laboratory Tests 07/14/17 03:20: White Blood Count 10.5, Red Blood Count 2.93L, Hemoglobin 9.5L, Hematocrit 28.0L , Mean Corpuscular Volume 96, Mean Corpuscular Hemoglobin 32.6H, Mean Corpuscular Hemoglobin Concent 34.1, Red Cell Distribution Width 11.8, Platelet Count 409, Mean Platelet Volume 8.5, Neutrophils (%) (Auto) 73.5, Lymphocytes (% ) (Auto) 13.9L, Monocytes (%) (Auto) 8.9, Eosinophils (%) (Auto) 2.3, Basophils (%) (Auto) 1.4 07/14/17 03:30: Sodium Level 139, Potassium Level 4.1, Chloride Level 102, Carbon Dioxide Level 30, Anion Gap 7, Blood Urea Nitrogen 19H, Creatinine 0.7, Estimat Glomerular Filtration Rate > 60, Glucose Level 67L, Calcium Level 9.4 Height (Feet): 5 Height (Inches): 6.00 Weight (Pounds): 147 General Appearance: thin Cardiovascular: tachycardia Respiratory/Chest: decreased breath sounds Abdomen: non tender, soft Extremities: non-pitting Neurologic: unresponsive REMIGIO KNOX Jul 14, 2017 22:45
[2017-07-15] VITALS: BP 132/88
[2017-07-15] MEDS: NovoLOG Insulin Flexpen SUBQ SCH ×6 (03:28→23:35)
[2017-07-15 04:00] VITALS: BP 136/82
[2017-07-15] MEDS: D5W w/KCl 20mEq 1,000 ML IV SCH ×2 (05:00→15:37)
[2017-07-15 08:00] VITALS: BP 136/78
[2017-07-15] MEDS: Levemir Flexpen SUBQ SCH ×2 (08:30→21:01)
--- NOTE | 2017-07-15 08:37 | Pulmonology Progress Note ---
Assessment/Plan Assessment/Plan IMPRESSION: 1. Respiratory failure; extubated 2. Cannabis usage. 3. Diabetic ketoacidosis. 4. Troponin leak. 5. Tachycardia. 6. Anoxic brain injury DISCUSSION: Continue present management and care. now extubated Poor prognosis Remains on supplemental O2; now with lower FiO2; on 4L/min ABG adequate Continue oral airway/suctioning CXR clear Subjective Interval Events: saturating well on nasal o2 Constitutional: Reports: no symptoms HEENT: Repors: no symptoms Respiratory: Reports: no symptoms Cardiovascular: Reports: no symptoms Gastrointestinal/Abdominal: Reports: no symptoms Genitourinary: Reports: no symptoms Allergies: Coded Allergies: No Known Allergies (Unverified , 06/15/17) Objective Last 24 Hour Vital Signs Date Time Temp Pulse Resp B/P (MAP) Pulse Ox O2 Delivery O2 Flow Rate FiO2 07/15/17 04:00 115 07/15/17 04:00 98.3 112 26 136/82 98 Nasal Cannula 3.0 07/15/17 00:00 125 07/15/17 00:00 98.2 110 22 132/88 99 Nasal Cannula 3.0 07/14/17 20:32 136/94 07/14/17 20:00 98.3 103 25 136/94 100 Nasal Cannula 3.0 07/14/17 20:00 92 07/14/17 16:00 109 07/14/17 16:00 98.2 104 23 147/97 93 Nasal Cannula 3.0 07/14/17 12:00 97.9 110 21 145/24 98 Nasal Cannula 3.0 07/14/17 12:00 116 07/14/17 09:03 155/86 Intake and Output 07/14/17 07/15/17 19:00 07:00 Intake Total 2115 ml 2070 ml Output Total 950 ml 990 ml Balance 1165 ml 1080 ml Free Water 500 ml 400 ml IV Total 955 ml 1010 ml Tube Feeding 660 ml 660 ml Output Urine Total 850 ml 990 ml Stool Total 100 ml General Appearance: no acute distress HEENT: normocephalic Respiratory/Chest: chest wall non-tender, lungs clear Cardiovascular: normal peripheral pulses, normal rate Abdomen: normal bowel sounds Current Medications Medications (Trade) Dose Ordered Sig/Conrado Route PRN Reason Start Time Stop Time Status Last Admin Dose Admin Acetaminophen (Tylenol) 500 mg Q6HR PRN NG Mild Pain/Temp > 100.5 07/01/17 02:45 07/31/17 02:44 07/08/17 20:09 Ceftazidime 1 gm/ Sodium Chloride 55 ml @ 110 mls/hr Q8HR IV 07/11/17 22:00 07/18/17 21:59 07/15/17 05:00 Clonidine HCl (Catapres Tab) 0.1 mg Q2H PRN NG For High Blood Pressure 07/10/17 16:00 08/09/17 15:59 Collagenase (Santyl) 1 applic DAILY TOPIC 07/13/17 15:00 08/12/17 14:59 07/14/17 09:04 Dextrose (Dextrose 50%) STAT PRN IV Hypoglycemia 07/01/17 22:30 07/29/17 22:29 07/12/17 03:56 Dextrose/ Electrolytes 1,000 ml @ 75 mls/hr [id number] IV 07/08/17 15:00 08/07/17 14:59 07/15/17 05:00 Insulin Aspart (NovoLOG) Q4H SUBQ 07/06/17 19:30 08/05/17 19:29 07/15/17 08:00 Insulin Detemir (Levemir) 25 units Q12HR SUBQ 07/15/17 09:00 08/14/17 08:59 07/15/17 08:30 Losartan Potassium (Cozaar) 50 mg EVERY 12 HOURS NG 07/07/17 21:00 08/06/17 20:59 07/14/17 20:32 Paulo Floyd MD Jul 15, 2017 08:37
--- NOTE | 2017-07-15 09:02 | General Progress Note ---
Assessment/Plan Problem List: (1) DKA (diabetic ketoacidosis) ICD Codes: E13.10 - Other specified diabetes mellitus with ketoacidosis without coma SNOMED: 82108845, 258439401 Qualifiers: Qualified Codes: E10.11 - Type 1 diabetes mellitus with ketoacidosis with coma (2) Transaminitis ICD Codes: R74.0 - Nonspecific elevation of levels of transaminase and lactic acid dehydrogenase [LDH] SNOMED: 699509584, 372331532 (3) Elevated troponin ICD Codes: R74.8 - Abnormal levels of other serum enzymes SNOMED: 839943883, 149529001, [id number] Assessment/Plan PEG sunday >> canceled for now given respiratory distress cont NGTFs electrolyte correction fu labplan PEG when more stable Subjective ROS Limited/Unobtainable: No Allergies: Coded Allergies: No Known Allergies (Unverified , 06/15/17) Subjective family wants full code Objective Last 24 Hour Vital Signs Date Time Temp Pulse Resp B/P (MAP) Pulse Ox O2 Delivery O2 Flow Rate FiO2 07/15/17 04:00 115 07/15/17 04:00 98.3 112 26 136/82 98 Nasal Cannula 3.0 07/15/17 00:00 125 07/15/17 00:00 98.2 110 22 132/88 99 Nasal Cannula 3.0 07/14/17 20:32 136/94 07/14/17 20:00 98.3 103 25 136/94 100 Nasal Cannula 3.0 07/14/17 20:00 92 07/14/17 16:00 109 07/14/17 16:00 98.2 104 23 147/97 93 Nasal Cannula 3.0 07/14/17 12:00 97.9 110 21 145/24 98 Nasal Cannula 3.0 07/14/17 12:00 116 07/14/17 09:03 155/86 Intake and Output 07/14/17 07/15/17 19:00 07:00 Intake Total 2115 ml 2070 ml Output Total 950 ml 990 ml Balance 1165 ml 1080 ml Free Water 500 ml 400 ml IV Total 955 ml 1010 ml Tube Feeding 660 ml 660 ml Output Urine Total 850 ml 990 ml Stool Total 100 ml Height (Feet): 5 Height (Inches): 6.00 Weight (Pounds): 147 General Appearance: lethargic EENT: normal ENT inspection Neck: supple Cardiovascular: tachycardia Respiratory/Chest: respiratory distress, decreased breath sounds, accessory muscle use Extremities: non-tender SAM PEREIRA Jul 15, 2017 09:02
[2017-07-15] MEDS: Losartan 50mg tab NG SCH ×2 (09:24→21:01)
[2017-07-15 12:00] VITALS: BP 127/84
[2017-07-15 16:00] VITALS: BP 127/90
[2017-07-15 20:00] VITALS: BP 144/95
--- NOTE | 2017-07-15 22:06 | Infectious Diseases Prog Note ---
Assessment/Plan Problems: (1) Pneumonia Assessment & Plan: due to Acinetobacter baumannii , continue ceftazidime for two weeks to finish his course of treatment , EOT 07/18/16, monitor CXR. continue aspiration precaution and suctioning to avoid aspiration (2) Pancreatitis Assessment & Plan: improved , monitor lipase, GI is following, restarted on tube feeding. (3) Cardiopulmonary arrest Assessment & Plan: was extubated from mechanical ventilation , as per family request and made DNR and started on morphin drip, but family changed his code status to full code , he is on tele monitor , cardiology is following , may need tracheostomy and PEG placement . (4) Anoxic cerebral edema Assessment & Plan: with no improvement, has poor prognosis , no tracheostomy , or PEG tube placement as per family , now full code as per family request , but postural and spastic and unresponsive . (5) Dysphagia Assessment & Plan: he will need permanent tube feeding for nutritional support , if family wants to proceed with full support (6) Hypernatremia Assessment & Plan: recommend hydration with free water , to bring his sodium down slowly Subjective ROS Limited/Unobtainable: Yes Allergies: Coded Allergies: No Known Allergies (Unverified , 06/15/17) Subjective he is still unresponsive , on high flow oxygen via mask, in MARIE , postural and spastic in the lower extremities , dosen't follow commands , afebrile .opens eyes spontaneously on/off . dosen't track Objective Vital Signs Last 24 Hour Vital Signs Date Time Temp Pulse Resp B/P (MAP) Pulse Ox O2 Delivery O2 Flow Rate FiO2 07/15/17 21:01 144/95 07/15/17 20:00 97.5 114 25 144/95 100 Nasal Cannula 3.0 07/15/17 20:00 115 07/15/17 16:00 97.9 106 21 127/90 100 Nasal Cannula 3.0 07/15/17 16:00 116 07/15/17 12:00 98.7 104 23 127/84 100 Nasal Cannula 3.0 07/15/17 11:54 97 07/15/17 09:24 136/78 07/15/17 08:00 111 07/15/17 08:00 96.8 99 24 136/78 100 Nasal Cannula 3.0 07/15/17 04:00 115 07/15/17 04:00 98.3 112 26 136/82 98 Nasal Cannula 3.0 07/15/17 00:00 125 07/15/17 00:00 98.2 110 22 132/88 99 Nasal Cannula 3.0 Height (Feet): 5 Height (Inches): 6.00 Weight (Pounds): 147 General Appearance: WD/WN, no acute distress HEENT: normocephalic, atraumatic, anicteric, mucous membranes moist Respiratory/Chest: chest wall non-tender, normal breath sounds, no respiratory distress, no accessory muscle use, decreased breath sounds, crackles/rales Cardiovascular: normal peripheral pulses, normal rate, regular rhythm, no gallop/murmur, no JVD Abdomen: normal bowel sounds, soft, non tender, no organomegaly, non distended , no mass, no scars Genitourinary: normal external genitalia Extremities: no cyanosis, no clubbing Skin: no rash, no lesions, ulcers Neurologic/Psychiatric: unresponsiveness Current Medications Medications (Trade) Dose Ordered Sig/Conrado Route PRN Reason Start Time Stop Time Status Last Admin Dose Admin Acetaminophen (Tylenol) 500 mg Q6HR PRN NG Mild Pain/Temp > 100.5 07/01/17 02:45 07/31/17 02:44 07/08/17 20:09 Ceftazidime 1 gm/ Sodium Chloride 55 ml @ 110 mls/hr Q8HR IV 07/11/17 22:00 07/18/17 21:59 07/15/17 21:35 Clonidine HCl (Catapres Tab) 0.1 mg Q2H PRN NG For High Blood Pressure 07/10/17 16:00 08/09/17 15:59 Collagenase (Santyl) 1 applic DAILY TOPIC 07/13/17 15:00 08/12/17 14:59 07/15/17 09:24 Dextrose (Dextrose 50%) STAT PRN IV Hypoglycemia 07/01/17 22:30 07/29/17 22:29 07/12/17 03:56 Dextrose/ Electrolytes 1,000 ml @ 75 mls/hr [id number] IV 07/08/17 15:00 08/07/17 14:59 07/15/17 15:37 Insulin Aspart (NovoLOG) Q4H SUBQ 07/06/17 19:30 08/05/17 19:29 07/15/17 19:46 Insulin Detemir (Levemir) 25 units Q12HR SUBQ 07/15/17 09:00 08/14/17 08:59 07/15/17 21:01 Losartan Potassium (Cozaar) 50 mg EVERY 12 HOURS NG 07/07/17 21:00 08/06/17 20:59 07/15/17 21:01 Saad Cummings M.D. Jul 15, 2017 22:06
--- NOTE | 2017-07-15 22:16 | Nephrology Progress Note ---
Assessment/Plan Problem List: (1) Hyponatremia Assessment: resolved. (2) Sepsis Assessment: improving. (3) Alcohol withdrawal (4) Pneumonia Assessment: resolving. (5) Cardiopulmonary arrest (6) Metabolic acidosis Assessment: resolved. (7) DKA (diabetic ketoacidosis) Assessment: resolved. (8) Transaminitis (9) Hypokalemia (10) Hypernatremia Assessment: resolved. (11) Anoxic encephalopathy syndrome (12) Anoxic cerebral edema (13) Shock liver (14) Fever Assessment: resolved. (15) Respiratory distress (16) Pancreatitis Assessment: resolved (17) Elevated troponin Plan pulm following. FULL CODE. pending PEG/trach when more stable. abx per ID. cardio and neuro following. d/w RN. monitor labs. Subjective Subjective No acute events. Objective Objective Last 24 Hour Vital Signs Date Time Temp Pulse Resp B/P (MAP) Pulse Ox O2 Delivery O2 Flow Rate FiO2 07/15/17 21:01 144/95 07/15/17 20:00 97.5 114 25 144/95 100 Nasal Cannula 3.0 07/15/17 20:00 115 07/15/17 16:00 97.9 106 21 127/90 100 Nasal Cannula 3.0 07/15/17 16:00 116 07/15/17 12:00 98.7 104 23 127/84 100 Nasal Cannula 3.0 07/15/17 11:54 97 07/15/17 09:24 136/78 07/15/17 08:00 111 07/15/17 08:00 96.8 99 24 136/78 100 Nasal Cannula 3.0 07/15/17 04:00 115 07/15/17 04:00 98.3 112 26 136/82 98 Nasal Cannula 3.0 07/15/17 00:00 125 07/15/17 00:00 98.2 110 22 132/88 99 Nasal Cannula 3.0 Intake and Output 07/14/17 07/15/17 19:00 07:00 Intake Total 2115 ml 2070 ml Output Total 950 ml 990 ml Balance 1165 ml 1080 ml Free Water 500 ml 400 ml IV Total 955 ml 1010 ml Tube Feeding 660 ml 660 ml Output Urine Total 850 ml 990 ml Stool Total 100 ml Height (Feet): 5 Height (Inches): 6.00 Weight (Pounds): 147 General Appearance: no apparent distress Cardiovascular: regular rhythm, tachycardia Respiratory/Chest: decreased breath sounds Abdomen: non tender, soft Extremities: non-pitting Neurologic: unresponsive REMIGIO KNOX Jul 15, 2017 22:16
--- NOTE | 2017-07-15 23:05 | Geriatric Medicine Prog Note ---
DATE: 07/15/2017 NOTE: POOR AUDIO SUBJECTIVE: The patient with poorly responsive. OBJECTIVE: VITAL SIGNS: Blood pressure 152/95, pulse 106, respiratory rate 18, temperature 99. RESPIRATORY: Clear. CARDIOVASCULAR: Regular. LABORATORY DATA: Glucose 150. ASSESSMENT: 1. Toxic encephalopathy. 2. Diabetes mellitus, in fair control. PLAN: Increase Detemir from 20 units q.12 h. to 25 units q.12 h. The patient will G-tube. Eugene Layton M.D. DR: LILIANA JOB#: [id number] CC:
[2017-07-16] VITALS: BP 138/96
[2017-07-16 04:00] VITALS: BP 145/90
[2017-07-16 04:17] LABS: ANION GAP 8 mmol/L (5-15); BLOOD UREA NITROGEN 20 mg/dL (7-18); CALCIUM 9.9 MG/DL (8.5-10.1); CARBON DIOXIDE 28 MMOL/L (21-32); CHLORIDE 100 MMOL/L (98-107); CREATININE 0.7 MG/DL (0.55-1.30); POTASSIUM 4.2 MMOL/L (3.5-5.1); SODIUM 136 MMOL/L (136-145)
[2017-07-16 04:18] LABS: BASOPHILS % (AUTO) 1.4 % (0.0-2.0); EOSINOPHILS % (AUTO) 2.3 % (0.0-3.0); HEMATOCRIT 29.2 % (42.0-52.0); HEMOGLOBIN 10.1 G/DL (14.2-18.0); MEAN CORPUSCULAR VOLUME 96 FL (80-99); MONOCYTES % (AUTO) 9.6 % (1.0-10.0); NEUTROPHILS % (AUTO) 69.7 % (45.0-75.0); PLATELET COUNT 467 K/UL (150-450); RED BLOOD COUNT 3.03 M/UL (4.70-6.10); RED CELL DISTRIBUTION WIDTH 11.8 % (11.6-14.8); WHITE BLOOD COUNT 9.8 K/UL (4.8-10.8)
[2017-07-16] MEDS: NovoLOG Insulin Flexpen SUBQ SCH ×3 (06:00→18:00)
[2017-07-16] MEDS: D5W w/KCl 20mEq 1,000 ML IV SCH ×2 (06:02→20:30)
--- NOTE | 2017-07-16 06:45 | Anethesia Preoperative Eval ---
Anesthesia Pre-op PMH/ROS General Date of Evaluation: Jul 16, 2017 Time of Evaluation: 06:40 Anesthesiologist: phillip ASA Score: ASA 4 Mallampati Score Class I : Soft palate, uvula, fauces, pillars visible Class II: Soft palate, uvula, fauces visible Class III: Soft palate, base of uvula visible Class IV: Only hard plate visible Mallampati Classification: Class II Surgeon: josey Diagnosis: dysphagia, anoxic brain injury Surgical Procedure: egd/peg Social History: alcohol use, drug use - marijuana Family History: no anesthesia problems Allergies: Coded Allergies: No Known Allergies (Unverified , 06/15/17) Medications: see eMAR Past Medical History Cardiovascular: Reports: other - cardiopulmonary arrest Pulmonary: Reports: other - respiratory failure (extubated) Gastrointestinal/Genitourinary: Reports: other - shock liver, pancreatitis, renal failure, Neurologic/Psychiatric: Reports: other - anoxic cerebral edema, anoxic brain injury, anoxic encephalopathy Endocrine: Reports: DM - ketoacidosis Anesthesia Pre-op Phys. Exam Physician Exam Last Vital Signs Date Time Temp Pulse Resp B/P (MAP) Pulse Ox O2 Delivery O2 Flow Rate FiO2 07/16/17 04:00 103 07/16/17 04:00 98.0 25 145/90 100 Nasal Cannula 3.0 07/15/17 19:00 32 Anesthesia Pre-op A/P Labs Hematology Test 07/16/17 03:00 White Blood Count 9.8 K/UL (4.8-10.8) Red Blood Count 3.03 M/UL (4.70-6.10) L Hemoglobin 10.1 G/DL (14.2-18.0) L Hematocrit 29.2 % (42.0-52.0) L Mean Corpuscular Volume 96 FL (80-99) Mean Corpuscular Hemoglobin 33.4 PG (27.0-31.0) H Mean Corpuscular Hemoglobin Concent 34.6 G/DL (32.0-36.0) Red Cell Distribution Width 11.8 % (11.6-14.8) Platelet Count 467 K/UL (150-450) H Mean Platelet Volume 8.4 FL (6.5-10.1) Neutrophils (%) (Auto) 69.7 % (45.0-75.0) Lymphocytes (%) (Auto) 17.0 % (20.0-45.0) L Monocytes (%) (Auto) 9.6 % (1.0-10.0) Eosinophils (%) (Auto) 2.3 % (0.0-3.0) Basophils (%) (Auto) 1.4 % (0.0-2.0) Coagulation Test 07/16/17 03:00 Prothrombin Time 10.7 SEC (9.30-11.50) Prothromb Time International Ratio 1.0 (0.9-1.1) Activated Partial Thromboplast Time 28 SEC (23-33) Chemistry Test 07/16/17 03:00 Sodium Level 136 MMOL/L (136-145) Potassium Level 4.2 MMOL/L (3.5-5.1) Chloride Level 100 MMOL/L (98-107) Carbon Dioxide Level 28 MMOL/L (21-32) Anion Gap 8 mmol/L (5-15) Blood Urea Nitrogen 20 mg/dL (7-18) H Creatinine 0.7 MG/DL (0.55-1.30) Estimat Glomerular Filtration Rate > 60 mL/min (>60) Glucose Level 126 MG/DL (74-106) H Calcium Level 9.9 MG/DL (8.5-10.1) Risk Assessment & Plan Assessment: asa4 Plan: HAIR Dobbs Jul 16, 2017 06:45
[2017-07-16 08:00] VITALS: BP 138/91
[2017-07-16] MEDS: Losartan 50mg tab NG SCH ×2 (08:41→21:03)
[2017-07-16] MEDS ORDERED: Levemir Flexpen SUBQ SCH (09:00)
--- NOTE | 2017-07-16 10:28 | Pulmonology Progress Note ---
Assessment/Plan Assessment/Plan IMPRESSION: 1. Respiratory failure; extubated 2. Cannabis usage. 3. Diabetic ketoacidosis. 4. Troponin leak. 5. Tachycardia. 6. Anoxic brain injury DISCUSSION: Continue present management and care. now extubated Poor prognosis Remains on supplemental O2; now with lower FiO2; on 4L/min ABG adequate Continue oral airway/suctioning CXR clear Subjective Interval Events: Remains on low flow O2; nasal canulae; has oral airway in place Constitutional: Reports: no symptoms HEENT: Repors: no symptoms Respiratory: Reports: no symptoms Cardiovascular: Reports: no symptoms Gastrointestinal/Abdominal: Reports: no symptoms Genitourinary: Reports: no symptoms Allergies: Coded Allergies: No Known Allergies (Unverified , 06/15/17) Objective Last 24 Hour Vital Signs Date Time Temp Pulse Resp B/P (MAP) Pulse Ox O2 Delivery O2 Flow Rate FiO2 07/16/17 08:41 138/91 07/16/17 08:00 98.4 109 20 138/91 100 Nasal Cannula 3.0 07/16/17 08:00 113 07/16/17 04:00 103 07/16/17 04:00 98.0 110 25 145/90 100 Nasal Cannula 3.0 07/16/17 00:00 98.1 108 25 138/96 100 Nasal Cannula 3.0 07/16/17 00:00 110 07/15/17 21:01 144/95 07/15/17 20:00 97.5 114 25 144/95 100 Nasal Cannula 3.0 07/15/17 20:00 115 07/15/17 19:00 Nasal Cannula 3.0 32 07/15/17 19:00 96 Nasal Cannula 3.0 32 07/15/17 16:00 97.9 106 21 127/90 100 Nasal Cannula 3.0 07/15/17 16:00 116 07/15/17 12:00 98.7 104 23 127/84 100 Nasal Cannula 3.0 07/15/17 11:54 97 Intake and Output 07/15/17 07/16/17 19:00 07:00 Intake Total 2040 ml 1620 ml Output Total 1300 ml 1600 ml Balance 740 ml 20 ml Free Water 500 ml IV Total 880 ml 960 ml Tube Feeding 660 ml 660 ml Output Urine Total 1100 ml 1400 ml Stool Total 200 ml 200 ml General Appearance: no acute distress HEENT: normocephalic Respiratory/Chest: chest wall non-tender, lungs clear Cardiovascular: normal peripheral pulses, normal rate Abdomen: normal bowel sounds, soft, non tender Laboratory Tests 07/16/17 03:00: White Blood Count 9.8, Red Blood Count 3.03L, Hemoglobin 10.1L, Hematocrit 29.2L , Mean Corpuscular Volume 96, Mean Corpuscular Hemoglobin 33.4H, Mean Corpuscular Hemoglobin Concent 34.6, Red Cell Distribution Width 11.8, Platelet Count 467H, Mean Platelet Volume 8.4, Neutrophils (%) (Auto) 69.7, Lymphocytes ( %) (Auto) 17.0L, Monocytes (%) (Auto) 9.6, Eosinophils (%) (Auto) 2.3, Basophils (%) (Auto) 1.4, Prothrombin Time 10.7, Prothromb Time International Ratio 1.0, Activated Partial Thromboplast Time 28, Sodium Level 136, Potassium Level 4.2, Chloride Level 100, Carbon Dioxide Level 28, Anion Gap 8, Blood Urea Nitrogen 20H, Creatinine 0.7, Estimat Glomerular Filtration Rate > 60, Glucose Level 126H, Calcium Level 9.9 Current Medications Medications (Trade) Dose Ordered Sig/Conrado Route PRN Reason Start Time Stop Time Status Last Admin Dose Admin Acetaminophen (Tylenol) 500 mg Q6HR PRN NG Mild Pain/Temp > 100.5 07/01/17 02:45 07/31/17 02:44 07/08/17 20:09 Ceftazidime 1 gm/ Sodium Chloride 55 ml @ 110 mls/hr Q8HR IV 07/11/17 22:00 07/18/17 22:15 07/16/17 05:54 Clonidine HCl (Catapres Tab) 0.1 mg Q2H PRN NG For High Blood Pressure 07/10/17 16:00 08/09/17 15:59 Collagenase (Santyl) 1 applic DAILY TOPIC 07/13/17 15:00 08/12/17 14:59 07/16/17 08:41 Dextrose (Dextrose 50%) STAT PRN IV Hypoglycemia 07/01/17 22:30 07/29/17 22:29 07/12/17 03:56 Dextrose/ Electrolytes 1,000 ml @ 75 mls/hr [id number] IV 07/08/17 15:00 08/07/17 14:59 07/16/17 06:02 Insulin Aspart (NovoLOG) Q6HR SUBQ 07/16/17 06:00 08/05/17 19:29 Insulin Detemir (Levemir) 32 units Q12HR SUBQ 07/16/17 09:00 08/15/17 08:59 07/16/17 08:47 Losartan Potassium (Cozaar) 50 mg EVERY 12 HOURS NG 07/07/17 21:00 08/06/17 20:59 07/16/17 08:41 Paulo Floyd MD Jul 16, 2017 10:28
--- NOTE | 2017-07-16 11:34 | Cardiac Electrophysiology PN ---
Assessment/Plan Assessment/Plan 1. Troponin leak due to renal failure. EF 60%. Didn't have CP during hospitalization. 2. Tachycardia due to diabetic ketoacidosis and sepsis. 3. Respiratory failure . S/P Terminal extubation. On oxygen. 4. Pneumonia on abx per Dr. Cummings 5. Pancreatitis. 6. ARF. Creatinine now Normal. 7. Marijuana use. 8. Suspect diffuse cerebral anoxia and edema with decorticate rigidity per Dr Cano. 9. Alcohol withdrawal. 10. Severe Hypernatremia. Na 165, improved to 139 11. Full code. 12. Dysphagia. NG feeding. PEG in AM 13. DNR, DNI DW RN Subjective Subjective On MARIE, on iv Abx in Sinus Rhythm. DNR and DNI again. RN at bedside. Objective Last 24 Hour Vital Signs Date Time Temp Pulse Resp B/P (MAP) Pulse Ox O2 Delivery O2 Flow Rate FiO2 07/16/17 08:41 138/91 07/16/17 08:00 98.4 109 20 138/91 100 Nasal Cannula 3.0 07/16/17 08:00 113 07/16/17 04:00 103 07/16/17 04:00 98.0 110 25 145/90 100 Nasal Cannula 3.0 07/16/17 00:00 98.1 108 25 138/96 100 Nasal Cannula 3.0 07/16/17 00:00 110 07/15/17 21:01 144/95 07/15/17 20:00 97.5 114 25 144/95 100 Nasal Cannula 3.0 07/15/17 20:00 115 07/15/17 19:00 Nasal Cannula 3.0 32 07/15/17 19:00 96 Nasal Cannula 3.0 32 07/15/17 16:00 97.9 106 21 127/90 100 Nasal Cannula 3.0 07/15/17 16:00 116 07/15/17 12:00 98.7 104 23 127/84 100 Nasal Cannula 3.0 07/15/17 11:54 97 Intake and Output 07/15/17 07/16/17 19:00 07:00 Intake Total 2040 ml 1620 ml Output Total 1300 ml 1600 ml Balance 740 ml 20 ml Free Water 500 ml IV Total 880 ml 960 ml Tube Feeding 660 ml 660 ml Output Urine Total 1100 ml 1400 ml Stool Total 200 ml 200 ml Laboratory Tests Test 07/16/17 03:00 White Blood Count 9.8 K/UL (4.8-10.8) Red Blood Count 3.03 M/UL (4.70-6.10) L Hemoglobin 10.1 G/DL (14.2-18.0) L Hematocrit 29.2 % (42.0-52.0) L Mean Corpuscular Volume 96 FL (80-99) Mean Corpuscular Hemoglobin 33.4 PG (27.0-31.0) H Mean Corpuscular Hemoglobin Concent 34.6 G/DL (32.0-36.0) Red Cell Distribution Width 11.8 % (11.6-14.8) Platelet Count 467 K/UL (150-450) H Mean Platelet Volume 8.4 FL (6.5-10.1) Neutrophils (%) (Auto) 69.7 % (45.0-75.0) Lymphocytes (%) (Auto) 17.0 % (20.0-45.0) L Monocytes (%) (Auto) 9.6 % (1.0-10.0) Eosinophils (%) (Auto) 2.3 % (0.0-3.0) Basophils (%) (Auto) 1.4 % (0.0-2.0) Prothrombin Time 10.7 SEC (9.30-11.50) Prothromb Time International Ratio 1.0 (0.9-1.1) Activated Partial Thromboplast Time 28 SEC (23-33) Sodium Level 136 MMOL/L (136-145) Potassium Level 4.2 MMOL/L (3.5-5.1) Chloride Level 100 MMOL/L (98-107) Carbon Dioxide Level 28 MMOL/L (21-32) Anion Gap 8 mmol/L (5-15) Blood Urea Nitrogen 20 mg/dL (7-18) H Creatinine 0.7 MG/DL (0.55-1.30) Estimat Glomerular Filtration Rate > 60 mL/min (>60) Glucose Level 126 MG/DL (74-106) H Calcium Level 9.9 MG/DL (8.5-10.1) Objective HEAD AND NECK: No JVD.Oxygen on. NG tube in. LUNGS: Clear. CARDIOVASCULAR: Regular S1 and S2 with no gallop or murmur. ABDOMEN: Soft and nontender. EXTREMITIES: No pitting edema. ALBERT ROWAN Jul 16, 2017 11:34
--- NOTE | 2017-07-16 11:48 | GI Progress Note ---
Assessment/Plan Problems: (1) Shock liver ICD Codes: K72.00 - Acute and subacute hepatic failure without coma SNOMED: 099627336 (2) Anoxic cerebral edema ICD Codes: G93.6 - Cerebral edema; R09.02 - Hypoxemia SNOMED: 9796111, 475529817 (3) Transaminitis ICD Codes: R74.0 - Nonspecific elevation of levels of transaminase and lactic acid dehydrogenase [LDH] SNOMED: 320394226, 435980991 (4) Alcohol withdrawal ICD Codes: F10.239 - Alcohol dependence with withdrawal, unspecified SNOMED: 028654135 (5) Pancreatitis ICD Codes: K85.90 - Acute pancreatitis without necrosis or infection, unspecified SNOMED: 97405322 Status: progressing Status Narrative Discussed with Dr. Rico. Assessment/Plan PEG cancelled today due to respiratory status, will put on scheduled for tomorrow. cont NGTFs, NPO @ MA. electrolyte correction fu labs Subjective Subjective limited Objective Last 24 Hour Vital Signs Date Time Temp Pulse Resp B/P (MAP) Pulse Ox O2 Delivery O2 Flow Rate FiO2 07/16/17 08:41 138/91 07/16/17 08:00 98.4 109 20 138/91 100 Nasal Cannula 3.0 07/16/17 08:00 113 07/16/17 04:00 103 07/16/17 04:00 98.0 110 25 145/90 100 Nasal Cannula 3.0 07/16/17 00:00 98.1 108 25 138/96 100 Nasal Cannula 3.0 07/16/17 00:00 110 07/15/17 21:01 144/95 07/15/17 20:00 97.5 114 25 144/95 100 Nasal Cannula 3.0 07/15/17 20:00 115 07/15/17 19:00 Nasal Cannula 3.0 32 07/15/17 19:00 96 Nasal Cannula 3.0 32 07/15/17 16:00 97.9 106 21 127/90 100 Nasal Cannula 3.0 07/15/17 16:00 116 07/15/17 12:00 98.7 104 23 127/84 100 Nasal Cannula 3.0 07/15/17 11:54 97 Intake and Output 07/15/17 07/16/17 19:00 07:00 Intake Total 2040 ml 1620 ml Output Total 1300 ml 1600 ml Balance 740 ml 20 ml Free Water 500 ml IV Total 880 ml 960 ml Tube Feeding 660 ml 660 ml Output Urine Total 1100 ml 1400 ml Stool Total 200 ml 200 ml Laboratory Tests Test 07/16/17 03:00 White Blood Count 9.8 K/UL (4.8-10.8) Red Blood Count 3.03 M/UL (4.70-6.10) L Hemoglobin 10.1 G/DL (14.2-18.0) L Hematocrit 29.2 % (42.0-52.0) L Mean Corpuscular Volume 96 FL (80-99) Mean Corpuscular Hemoglobin 33.4 PG (27.0-31.0) H Mean Corpuscular Hemoglobin Concent 34.6 G/DL (32.0-36.0) Red Cell Distribution Width 11.8 % (11.6-14.8) Platelet Count 467 K/UL (150-450) H Mean Platelet Volume 8.4 FL (6.5-10.1) Neutrophils (%) (Auto) 69.7 % (45.0-75.0) Lymphocytes (%) (Auto) 17.0 % (20.0-45.0) L Monocytes (%) (Auto) 9.6 % (1.0-10.0) Eosinophils (%) (Auto) 2.3 % (0.0-3.0) Basophils (%) (Auto) 1.4 % (0.0-2.0) Prothrombin Time 10.7 SEC (9.30-11.50) Prothromb Time International Ratio 1.0 (0.9-1.1) Activated Partial Thromboplast Time 28 SEC (23-33) Sodium Level 136 MMOL/L (136-145) Potassium Level 4.2 MMOL/L (3.5-5.1) Chloride Level 100 MMOL/L (98-107) Carbon Dioxide Level 28 MMOL/L (21-32) Anion Gap 8 mmol/L (5-15) Blood Urea Nitrogen 20 mg/dL (7-18) H Creatinine 0.7 MG/DL (0.55-1.30) Estimat Glomerular Filtration Rate > 60 mL/min (>60) Glucose Level 126 MG/DL (74-106) H Calcium Level 9.9 MG/DL (8.5-10.1) Height (Feet): 5 Height (Inches): 6.00 Weight (Pounds): 147 General Appearance: lethargic Cardiovascular: normal rate Respiratory/Chest: no respiratory distress Abdominal Exam: soft, other - NGT Lashawn Mason N.P. Jul 16, 2017 11:48
[2017-07-16 12:00] VITALS: BP 138/86
--- NOTE | 2017-07-16 13:50 | Infectious Diseases Prog Note ---
Assessment/Plan Problems: (1) Pneumonia Assessment & Plan: with Acinetobacter baumannii , on ceftazidime for two weeks to finish his course of treatment , EOT 07/18/16, monitor CXR. continue aspiration precaution and suctioning to avoid further aspiration (2) Pancreatitis Assessment & Plan: improved , monitor lipase, GI is following, restarted on tube feeding. (3) Cardiopulmonary arrest Assessment & Plan: was extubated from mechanical ventilation , as per family request and made DNR and started on morphin drip, but family changed his code status to full code , he is on tele monitor , cardiology is following , may need tracheostomy and PEG placement . (4) Anoxic cerebral edema Assessment & Plan: with no improvement, has poor prognosis , no tracheostomy , or PEG tube placement as per family , now full code as per family request , but postural and spastic and unresponsive . (5) Dysphagia Assessment & Plan: he will need permanent tube feeding for nutritional support , if family wants to proceed with full support Subjective ROS Limited/Unobtainable: Yes Allergies: Coded Allergies: No Known Allergies (Unverified , 06/15/17) Subjective he is still unresponsive , on high flow oxygen , in MARIE , postural and spastic in the lower extremities , dosen't follow commands , afebrile .opens eyes spontaneously on/off . dosen't track Objective Vital Signs Last 24 Hour Vital Signs Date Time Temp Pulse Resp B/P (MAP) Pulse Ox O2 Delivery O2 Flow Rate FiO2 07/16/17 12:00 98.4 104 21 138/86 100 Nasal Cannula 3.0 07/16/17 08:41 138/91 07/16/17 08:00 98.4 109 20 138/91 100 Nasal Cannula 3.0 07/16/17 08:00 113 07/16/17 04:00 103 07/16/17 04:00 98.0 110 25 145/90 100 Nasal Cannula 3.0 07/16/17 00:00 98.1 108 25 138/96 100 Nasal Cannula 3.0 07/16/17 00:00 110 07/15/17 21:01 144/95 07/15/17 20:00 97.5 114 25 144/95 100 Nasal Cannula 3.0 07/15/17 20:00 115 07/15/17 19:00 Nasal Cannula 3.0 32 07/15/17 19:00 96 Nasal Cannula 3.0 32 07/15/17 16:00 97.9 106 21 127/90 100 Nasal Cannula 3.0 07/15/17 16:00 116 Height (Feet): 5 Height (Inches): 6.00 Weight (Pounds): 147 General Appearance: WD/WN, no acute distress HEENT: normocephalic, atraumatic, anicteric, mucous membranes moist Respiratory/Chest: chest wall non-tender, normal breath sounds, no respiratory distress, no accessory muscle use, decreased breath sounds Cardiovascular: normal peripheral pulses, normal rate, regular rhythm, no gallop/murmur, no JVD Abdomen: normal bowel sounds, soft, non tender, no organomegaly, non distended , no mass, no scars Extremities: no cyanosis, no clubbing Skin: no rash, no lesions, ulcers Neurologic/Psychiatric: unresponsiveness Laboratory Tests Test 07/16/17 03:00 White Blood Count 9.8 K/UL (4.8-10.8) Red Blood Count 3.03 M/UL (4.70-6.10) L Hemoglobin 10.1 G/DL (14.2-18.0) L Hematocrit 29.2 % (42.0-52.0) L Mean Corpuscular Volume 96 FL (80-99) Mean Corpuscular Hemoglobin 33.4 PG (27.0-31.0) H Mean Corpuscular Hemoglobin Concent 34.6 G/DL (32.0-36.0) Red Cell Distribution Width 11.8 % (11.6-14.8) Platelet Count 467 K/UL (150-450) H Mean Platelet Volume 8.4 FL (6.5-10.1) Neutrophils (%) (Auto) 69.7 % (45.0-75.0) Lymphocytes (%) (Auto) 17.0 % (20.0-45.0) L Monocytes (%) (Auto) 9.6 % (1.0-10.0) Eosinophils (%) (Auto) 2.3 % (0.0-3.0) Basophils (%) (Auto) 1.4 % (0.0-2.0) Prothrombin Time 10.7 SEC (9.30-11.50) Prothromb Time International Ratio 1.0 (0.9-1.1) Activated Partial Thromboplast Time 28 SEC (23-33) Sodium Level 136 MMOL/L (136-145) Potassium Level 4.2 MMOL/L (3.5-5.1) Chloride Level 100 MMOL/L (98-107) Carbon Dioxide Level 28 MMOL/L (21-32) Anion Gap 8 mmol/L (5-15) Blood Urea Nitrogen 20 mg/dL (7-18) H Creatinine 0.7 MG/DL (0.55-1.30) Estimat Glomerular Filtration Rate > 60 mL/min (>60) Glucose Level 126 MG/DL (74-106) H Calcium Level 9.9 MG/DL (8.5-10.1) Current Medications Medications (Trade) Dose Ordered Sig/Conrado Route PRN Reason Start Time Stop Time Status Last Admin Dose Admin Acetaminophen (Tylenol) 500 mg Q6HR PRN NG Mild Pain/Temp > 100.5 07/01/17 02:45 07/31/17 02:44 07/08/17 20:09 Ceftazidime 1 gm/ Sodium Chloride 55 ml @ 110 mls/hr Q8HR IV 07/11/17 22:00 07/18/17 22:15 07/16/17 05:54 Clonidine HCl (Catapres Tab) 0.1 mg Q2H PRN NG For High Blood Pressure 07/10/17 16:00 08/09/17 15:59 Collagenase (Santyl) 1 applic DAILY TOPIC 07/13/17 15:00 08/12/17 14:59 07/16/17 08:41 Dextrose (Dextrose 50%) STAT PRN IV Hypoglycemia 07/01/17 22:30 07/29/17 22:29 07/12/17 03:56 Dextrose/ Electrolytes 1,000 ml @ 75 mls/hr [id number] IV 07/08/17 15:00 08/07/17 14:59 07/16/17 06:02 Insulin Aspart (NovoLOG) Q6HR SUBQ 07/16/17 06:00 08/05/17 19:29 07/16/17 11:49 Insulin Detemir (Levemir) 32 units Q12HR SUBQ 07/16/17 09:00 08/15/17 08:59 07/16/17 08:47 Losartan Potassium (Cozaar) 50 mg EVERY 12 HOURS NG 07/07/17 21:00 08/06/17 20:59 07/16/17 08:41 Saad Cummings M.D. Jul 16, 2017 13:50
[2017-07-16 16:00] VITALS: BP 151/103
--- NOTE | 2017-07-16 19:15 | Nephrology Progress Note ---
Assessment/Plan Problem List: (1) Hypernatremia Assessment: Improved (2) Hypokalemia Assessment: corrected (3) Fever (4) Acidosis (5) Respiratory distress (6) Pancreatitis (7) Elevated troponin (8) Alcohol withdrawal (9) Pneumonia (10) Sepsis (11) Cardiopulmonary arrest (12) Metabolic acidosis (13) DKA (diabetic ketoacidosis) (14) Renal failure Assessment: Improved (15) DNR (do not resuscitate) Plan Continue current treatment plan D5W+KCL@ 75cc/hr Accu-check q4h Monitor temp Suspect diffuse cerebral anoxia and edema with decorticate rigidity per Dr Cano. Monitor lytes, correct prn Monitor neuro status, f/u with neurology rec Continue NG tube feeding and IVF Pending PEG placement Strict glycemic control Monitor renal function on current abx Abx per ID Monitor intake and output Continue carpenter AM labs Subjective Subjective Seen in MARIE,unresponsive, on venturi mask Objective Objective Last 24 Hour Vital Signs Date Time Temp Pulse Resp B/P (MAP) Pulse Ox O2 Delivery O2 Flow Rate FiO2 07/16/17 16:54 116 07/16/17 16:00 98.3 119 27 151/103 100 Nasal Cannula 3.0 07/16/17 12:00 98.4 104 21 138/86 100 Nasal Cannula 3.0 07/16/17 12:00 97 07/16/17 08:41 138/91 07/16/17 08:00 98.4 109 20 138/91 100 Nasal Cannula 3.0 07/16/17 08:00 113 07/16/17 04:00 103 07/16/17 04:00 98.0 110 25 145/90 100 Nasal Cannula 3.0 07/16/17 00:00 98.1 108 25 138/96 100 Nasal Cannula 3.0 07/16/17 00:00 110 07/15/17 21:01 144/95 07/15/17 20:00 97.5 114 25 144/95 100 Nasal Cannula 3.0 07/15/17 20:00 115 Intake and Output 07/15/17 07/16/17 19:00 07:00 Intake Total 2040 ml 1620 ml Output Total 1300 ml 1600 ml Balance 740 ml 20 ml Free Water 500 ml IV Total 880 ml 960 ml Tube Feeding 660 ml 660 ml Output Urine Total 1100 ml 1400 ml Stool Total 200 ml 200 ml Laboratory Tests 07/16/17 03:00: White Blood Count 9.8, Red Blood Count 3.03L, Hemoglobin 10.1L, Hematocrit 29.2L , Mean Corpuscular Volume 96, Mean Corpuscular Hemoglobin 33.4H, Mean Corpuscular Hemoglobin Concent 34.6, Red Cell Distribution Width 11.8, Platelet Count 467H, Mean Platelet Volume 8.4, Neutrophils (%) (Auto) 69.7, Lymphocytes ( %) (Auto) 17.0L, Monocytes (%) (Auto) 9.6, Eosinophils (%) (Auto) 2.3, Basophils (%) (Auto) 1.4, Prothrombin Time 10.7, Prothromb Time International Ratio 1.0, Activated Partial Thromboplast Time 28, Sodium Level 136, Potassium Level 4.2, Chloride Level 100, Carbon Dioxide Level 28, Anion Gap 8, Blood Urea Nitrogen 20H, Creatinine 0.7, Estimat Glomerular Filtration Rate > 60, Glucose Level 126H, Calcium Level 9.9 Height (Feet): 5 Height (Inches): 6.00 Weight (Pounds): 147 General Appearance: no apparent distress Neck: stiff neck Cardiovascular: normal rate Respiratory/Chest: decreased breath sounds, crackles/rales Abdomen: soft Genitourinary/Rectal: other - CARPENTER Extremities: trace edema Neurologic: unresponsive Hannah Johnson N.P. Jul 16, 2017 19:15
--- NOTE | 2017-07-16 19:42 | General Progress Note ---
Assessment/Plan Problem List: (1) DKA (diabetic ketoacidosis) ICD Codes: E13.10 - Other specified diabetes mellitus with ketoacidosis without coma SNOMED: 16244915, 987758281 Qualifiers: Qualified Codes: E10.11 - Type 1 diabetes mellitus with ketoacidosis with coma (2) Metabolic acidosis ICD Codes: E87.2 - Acidosis SNOMED: 60426321 (3) Cardiopulmonary arrest ICD Codes: I46.9 - Cardiac arrest, cause unspecified SNOMED: 541685065 Assessment/Plan reduce Levemir to 23 units bid continue NISS Subjective ROS Limited/Unobtainable: Yes Allergies: Coded Allergies: No Known Allergies (Unverified , 06/15/17) Subjective events noted Objective Last 24 Hour Vital Signs Date Time Temp Pulse Resp B/P (MAP) Pulse Ox O2 Delivery O2 Flow Rate FiO2 07/16/17 16:54 116 07/16/17 16:00 98.3 119 27 151/103 100 Nasal Cannula 3.0 07/16/17 12:00 98.4 104 21 138/86 100 Nasal Cannula 3.0 07/16/17 12:00 97 07/16/17 08:41 138/91 07/16/17 08:00 98.4 109 20 138/91 100 Nasal Cannula 3.0 07/16/17 08:00 113 07/16/17 04:00 103 07/16/17 04:00 98.0 110 25 145/90 100 Nasal Cannula 3.0 07/16/17 00:00 98.1 108 25 138/96 100 Nasal Cannula 3.0 07/16/17 00:00 110 07/15/17 21:01 144/95 07/15/17 20:00 97.5 114 25 144/95 100 Nasal Cannula 3.0 07/15/17 20:00 115 Intake and Output 07/15/17 07/16/17 19:00 07:00 Intake Total 2040 ml 1620 ml Output Total 1300 ml 1600 ml Balance 740 ml 20 ml Free Water 500 ml IV Total 880 ml 960 ml Tube Feeding 660 ml 660 ml Output Urine Total 1100 ml 1400 ml Stool Total 200 ml 200 ml Laboratory Tests 07/16/17 03:00: White Blood Count 9.8, Red Blood Count 3.03L, Hemoglobin 10.1L, Hematocrit 29.2L , Mean Corpuscular Volume 96, Mean Corpuscular Hemoglobin 33.4H, Mean Corpuscular Hemoglobin Concent 34.6, Red Cell Distribution Width 11.8, Platelet Count 467H, Mean Platelet Volume 8.4, Neutrophils (%) (Auto) 69.7, Lymphocytes ( %) (Auto) 17.0L, Monocytes (%) (Auto) 9.6, Eosinophils (%) (Auto) 2.3, Basophils (%) (Auto) 1.4, Prothrombin Time 10.7, Prothromb Time International Ratio 1.0, Activated Partial Thromboplast Time 28, Sodium Level 136, Potassium Level 4.2, Chloride Level 100, Carbon Dioxide Level 28, Anion Gap 8, Blood Urea Nitrogen 20H, Creatinine 0.7, Estimat Glomerular Filtration Rate > 60, Glucose Level 126H, Calcium Level 9.9 Height (Feet): 5 Height (Inches): 6.00 Weight (Pounds): 147 Neck: normal alignment Cardiovascular: normal rate Respiratory/Chest: normal breath sounds Abdomen: normal bowel sounds Objective Item Value Date Time Bedside Blood Glucose 87 mg/dl 07/16/17 1800 Bedside Blood Glucose 166 mg/dl H 07/16/17 1200 Bedside Blood Glucose 97 mg/dl 07/16/17 0847 Bedside Blood Glucose 97 mg/dl 07/16/17 0600 Bedside Blood Glucose 226 mg/dl H 07/15/17 [id number] JADIEL MARCANO Jul 16, 2017 19:41
[2017-07-16 20:00] VITALS: BP 144/92
[2017-07-16] MEDS: Levemir Flexpen SUBQ SCH (21:09)
[2017-07-17] VITALS (12 sets, daily range): BP systolic 132–160; BP diastolic 90–112
[2017-07-17] MEDS: NovoLOG Insulin Flexpen SUBQ SCH ×4 (06:00→17:40)
--- NOTE | 2017-07-17 07:00 | Geriatric Medicine Prog Note ---
DATE: 07/16/2017 SUBJECTIVE: Just remains about the same. OBJECTIVE: VITAL SIGNS: Stable. RESPIRATORY: Clear. CVS: Regular. LABORATORY DATA: Glucose 226. ASSESSMENT: Diabetes mellitus, in fair control. PLAN: Change Accu-Check to q.6 hours moderate dose. Increase detemir from 20 to 30 units q.12 hours. Increase . Eugene Layton M.D. DR: LILIANA JOB#: [id number] CC:
[2017-07-17 08:06] LABS: BASOPHILS % (AUTO) 0.9 % (0.0-2.0); EOSINOPHILS % (AUTO) 1.6 % (0.0-3.0); HEMATOCRIT 31.6 % (42.0-52.0); HEMOGLOBIN 10.5 G/DL (14.2-18.0); LYMPHOCYTES % (AUTO) 19.5 % (20.0-45.0); MEAN CORPUSCULAR VOLUME 95 FL (80-99); PLATELET COUNT 440 K/UL (150-450); RED BLOOD COUNT 3.31 M/UL (4.70-6.10); RED CELL DISTRIBUTION WIDTH 11.6 % (11.6-14.8)
[2017-07-17 08:16] LABS: INR 1.1 (0.9-1.1)
[2017-07-17 08:21] LABS: ANION GAP 7 mmol/L (5-15); BLOOD UREA NITROGEN 13 mg/dL (7-18); CALCIUM 9.6 MG/DL (8.5-10.1); CARBON DIOXIDE 29 MMOL/L (21-32); CHLORIDE 100 MMOL/L (98-107); CREATININE 0.7 MG/DL (0.55-1.30); POTASSIUM 4.2 MMOL/L (3.5-5.1); SODIUM 136 MMOL/L (136-145)
[2017-07-17] MEDS: Losartan 50mg tab NG SCH ×2 (08:36→20:00)
[2017-07-17] MEDS: Levemir Flexpen SUBQ SCH ×2 (08:38→20:02)
--- NOTE | 2017-07-17 09:40 | Pulmonology Progress Note ---
Assessment/Plan Assessment/Plan IMPRESSION: 1. Respiratory failure; extubated 2. Cannabis usage. 3. Diabetic ketoacidosis. 4. Troponin leak. 5. Tachycardia. 6. Anoxic brain injury DISCUSSION: Continue present management and care. now extubated Poor prognosis Remains on supplemental O2; now with lower FiO2; on 4L/min ABG adequate Continue oral airway/suctioning CXR clear Subjective Interval Events: None Constitutional: Reports: no symptoms HEENT: Repors: no symptoms Respiratory: Reports: no symptoms Cardiovascular: Reports: no symptoms Gastrointestinal/Abdominal: Reports: no symptoms Allergies: Coded Allergies: No Known Allergies (Unverified , 06/15/17) Objective Last 24 Hour Vital Signs Date Time Temp Pulse Resp B/P (MAP) Pulse Ox O2 Delivery O2 Flow Rate FiO2 07/17/17 08:36 155/98 07/17/17 08:00 97.3 86 22 155/98 100 Nasal Cannula 3.0 86 07/17/17 04:10 142/95 07/17/17 04:00 97.9 105 40 149/105 100 Nasal Cannula 3.0 07/17/17 04:00 107 07/17/17 00:00 98.0 102 27 139/90 100 Nasal Cannula 3.0 07/17/17 00:00 95 07/16/17 21:03 144/92 07/16/17 20:00 98.2 112 27 144/92 100 Nasal Cannula 3.0 07/16/17 20:00 107 07/16/17 16:54 116 07/16/17 16:00 98.3 119 27 151/103 100 Nasal Cannula 3.0 07/16/17 12:00 98.4 104 21 138/86 100 Nasal Cannula 3.0 07/16/17 12:00 97 Intake and Output 07/16/17 07/17/17 19:00 07:00 Intake Total 955 ml 1240 ml Output Total 1050 ml 1300 ml Balance -95 ml -60 ml Free Water 100 ml IV Total 75 ml 965 ml Tube Feeding 660 ml 275 ml Other 120 ml Output Urine Total 1050 ml 1300 ml # Bowel Movements 50 General Appearance: no acute distress HEENT: normocephalic Respiratory/Chest: chest wall non-tender, lungs clear Cardiovascular: normal peripheral pulses, normal rate Abdomen: normal bowel sounds Laboratory Tests 07/17/17 07:50: White Blood Count 8.0, Red Blood Count 3.31L, Hemoglobin 10.5L, Hematocrit 31.6L , Mean Corpuscular Volume 95, Mean Corpuscular Hemoglobin 31.8H, Mean Corpuscular Hemoglobin Concent 33.3, Red Cell Distribution Width 11.6, Platelet Count 440, Mean Platelet Volume 7.9, Neutrophils (%) (Auto) 68.0, Lymphocytes (% ) (Auto) 19.5L, Monocytes (%) (Auto) 10.0, Eosinophils (%) (Auto) 1.6, Basophils (%) (Auto) 0.9, Prothrombin Time 11.0, Prothromb Time International Ratio 1.1, Activated Partial Thromboplast Time 27, Sodium Level 136, Potassium Level 4.2, Chloride Level 100, Carbon Dioxide Level 29, Anion Gap 7, Blood Urea Nitrogen 13, Creatinine 0.7, Estimat Glomerular Filtration Rate > 60, Glucose Level 216H, Calcium Level 9.6 Current Medications Medications (Trade) Dose Ordered Sig/Conrado Route PRN Reason Start Time Stop Time Status Last Admin Dose Admin Acetaminophen (Tylenol) 500 mg Q6HR PRN NG Mild Pain/Temp > 100.5 07/01/17 02:45 07/31/17 02:44 07/08/17 20:09 Ceftazidime 1 gm/ Sodium Chloride 55 ml @ 110 mls/hr Q8HR IV 07/11/17 22:00 07/18/17 22:15 07/17/17 05:27 Clonidine HCl (Catapres Tab) 0.1 mg Q2H PRN NG For High Blood Pressure 07/10/17 16:00 08/09/17 15:59 Collagenase (Santyl) 1 applic DAILY TOPIC 07/13/17 15:00 08/12/17 14:59 07/17/17 08:35 Dextrose (Dextrose 50%) STAT PRN IV Hypoglycemia 07/01/17 22:30 07/29/17 22:29 07/12/17 03:56 Dextrose/ Electrolytes 1,000 ml @ 75 mls/hr [id number] IV 07/08/17 15:00 08/07/17 14:59 07/16/17 20:30 Insulin Aspart (NovoLOG) Q6HR SUBQ 07/16/17 06:00 08/05/17 19:29 07/16/17 11:49 Insulin Detemir (Levemir) 23 units Q12HR SUBQ 07/16/17 21:00 08/15/17 20:59 07/16/17 21:09 Losartan Potassium (Cozaar) 50 mg EVERY 12 HOURS NG 07/07/17 21:00 08/06/17 20:59 07/16/17 21:03 Paulo Floyd MD Jul 17, 2017 09:40
[2017-07-17] MEDS: D5W w/KCl 20mEq 1,000 ML IV SCH (10:47)
--- NOTE | 2017-07-17 10:49 | Cardiac Electrophysiology PN ---
Assessment/Plan Assessment/Plan 1. Troponin leak due to renal failure. EF 60%. No CP during hospitalization. 2. Tachycardia due to diabetic ketoacidosis and sepsis. 3. Respiratory failure . S/P Terminal extubation. On oxygen. 4. Pneumonia on abx per Dr. Cummings 5. Pancreatitis. 6. ARF. Creatinine now Normal. 7. Marijuana use. 8. Suspect diffuse cerebral anoxia and edema with decorticate rigidity per Dr Cano. 9. Alcohol withdrawal. 10. Severe Hypernatremia. Na 165, improved to 139 11. Full code. 12. Dysphagia. NG feeding. PEG today pending 13. DNR, DNI DW RN Subjective Subjective On MARIE, on iv Abx in Sinus Rhythm. DNR and DNI again. RN at bedside.NPO for PEG today Objective Last 24 Hour Vital Signs Date Time Temp Pulse Resp B/P (MAP) Pulse Ox O2 Delivery O2 Flow Rate FiO2 07/17/17 08:36 155/98 07/17/17 08:00 110 07/17/17 08:00 97.3 86 22 155/98 100 Nasal Cannula 3.0 86 07/17/17 04:10 142/95 07/17/17 04:00 97.9 105 40 149/105 100 Nasal Cannula 3.0 07/17/17 04:00 107 07/17/17 00:00 98.0 102 27 139/90 100 Nasal Cannula 3.0 07/17/17 00:00 95 07/16/17 21:03 144/92 07/16/17 20:00 98.2 112 27 144/92 100 Nasal Cannula 3.0 07/16/17 20:00 107 07/16/17 16:54 116 07/16/17 16:00 98.3 119 27 151/103 100 Nasal Cannula 3.0 07/16/17 12:00 98.4 104 21 138/86 100 Nasal Cannula 3.0 07/16/17 12:00 97 Intake and Output 07/16/17 07/17/17 19:00 07:00 Intake Total 955 ml 1240 ml Output Total 1050 ml 1300 ml Balance -95 ml -60 ml Free Water 100 ml IV Total 75 ml 965 ml Tube Feeding 660 ml 275 ml Other 120 ml Output Urine Total 1050 ml 1300 ml # Bowel Movements 50 Laboratory Tests Test 07/17/17 07:50 White Blood Count 8.0 K/UL (4.8-10.8) Red Blood Count 3.31 M/UL (4.70-6.10) L Hemoglobin 10.5 G/DL (14.2-18.0) L Hematocrit 31.6 % (42.0-52.0) L Mean Corpuscular Volume 95 FL (80-99) Mean Corpuscular Hemoglobin 31.8 PG (27.0-31.0) H Mean Corpuscular Hemoglobin Concent 33.3 G/DL (32.0-36.0) Red Cell Distribution Width 11.6 % (11.6-14.8) Platelet Count 440 K/UL (150-450) Mean Platelet Volume 7.9 FL (6.5-10.1) Neutrophils (%) (Auto) 68.0 % (45.0-75.0) Lymphocytes (%) (Auto) 19.5 % (20.0-45.0) L Monocytes (%) (Auto) 10.0 % (1.0-10.0) Eosinophils (%) (Auto) 1.6 % (0.0-3.0) Basophils (%) (Auto) 0.9 % (0.0-2.0) Prothrombin Time 11.0 SEC (9.30-11.50) Prothromb Time International Ratio 1.1 (0.9-1.1) Activated Partial Thromboplast Time 27 SEC (23-33) Sodium Level 136 MMOL/L (136-145) Potassium Level 4.2 MMOL/L (3.5-5.1) Chloride Level 100 MMOL/L (98-107) Carbon Dioxide Level 29 MMOL/L (21-32) Anion Gap 7 mmol/L (5-15) Blood Urea Nitrogen 13 mg/dL (7-18) Creatinine 0.7 MG/DL (0.55-1.30) Estimat Glomerular Filtration Rate > 60 mL/min (>60) Glucose Level 216 MG/DL (74-106) H Calcium Level 9.6 MG/DL (8.5-10.1) Objective HEAD AND NECK: No JVD. NG tube in. LUNGS: Clear. CARDIOVASCULAR: Regular S1 and S2 with no gallop or murmur. ABDOMEN: Soft and nontender. EXTREMITIES: No pitting edema. ALBERT ROWAN Jul 17, 2017 10:49
--- NOTE | 2017-07-17 11:43 | Diagnostic Imaging Report ---
APPROVED REPORT CPT Code: 08101 Present Symptoms Comments: R/O DVT BILATERAL: Imaging reveals a patent deep venous system bilaterally. There is no evidence of thrombus within the femoral, popliteal or tibial segments. The greater saphenous veins are also within normal limits. Doppler indicates normal spontaneous flow within these segments.
[2017-07-17] MEDS ORDERED: Propofol 200mg/20ml IV ONE (12:00)
[2017-07-17] MEDS ORDERED: Lidocaine 1% MPF 10mg/ml 5ml ONE (12:00)
[2017-07-17] MEDS ORDERED: LR 1000ml ONE (12:00)
[2017-07-17] MEDS ORDERED: NS 500ML IV ONE (12:00)
--- NOTE | 2017-07-17 12:20 | Pre-Procedure Note/Attestation ---
Pre-Procedure Note/Attestation Complete Prior to Procedure Planned Procedure: not applicable Procedure Narrative: esophagogastroduodenoscopy peg Indications for Procedure Pre-Operative Diagnosis: dysphagia Attestation I attest that I discussed the nature of the procedure; its benefits; risks and complications; and alternatives (and the risks and benefits of such alternatives ), prior to the procedure, with the patient (or the patient's legal sales representative health insurance). I attest that, if there was a reasonable possibility of needing a blood transfusion, the patient (or the patient's legal sales representative health insurance) was given the [facility] standardized written summary, pursuant to the Diego Keesha Blood Safety Act ([place] Health and Safety Code # 1645, as amended). I attest that I re-evaluated the patient just prior to the surgery and that there has been no change in the patient's H&P, except as documented below: SAM PEREIRA Jul 17, 2017 12:20
--- NOTE | 2017-07-17 12:33 | Endoscopy Procedure Note ---
Endoscopy Procedure Note Indication for Procedure: dysphagia Procedures Performed: EGD, PEG Operative Findings/Diagnosis: same Specimen: none Pt Tolerated Procedure Well: Yes Estimated Blood Loss: none Anesthesiologist: baldo Anesthesia: MAC Implant(s) used?: No 50 yrs or older w/o bx or poly: Not Applicable 10yrs. F/U not recommended: Not Applicable SAM PEREIRA Jul 17, 2017 12:33
--- NOTE | 2017-07-17 12:54 | Immediate Post-Op Evaluation ---
Immediate Post-Op Evalulation Immediate Post-Op Evalulation Procedure: PEG Date of Evaluation: Jul 17, 2017 Time of Evaluation: 12:52 IV Fluids: 300 Blood Pressure Systolic: 134 Blood Pressure Diastolic: 100 Pulse Rate: 100 Respiratory Rate: 14 O2 Sat by Pulse Oximetry: 100 Nausea: No Vomiting: No Complications none Patient Status: reacts, patent Hydration Status: adequate Drug: ceftazidime Given Within 1 Hr of Incision: Yes Time Given: 05:30 LILY GALLEGO CRNA Jul 17, 2017 12:54
--- NOTE | 2017-07-17 12:57 | Anethesia Preoperative Eval ---
Anesthesia Pre-op PMH/ROS General Date of Evaluation: Jul 17, 2017 Time of Evaluation: 12:55 Anesthesiologist: silvina ASA Score: ASA 4 Mallampati Score Class I : Soft palate, uvula, fauces, pillars visible Class II: Soft palate, uvula, fauces visible Class III: Soft palate, base of uvula visible Class IV: Only hard plate visible Mallampati Classification: Class II Surgeon: josey Diagnosis: failure to thrive Surgical Procedure: EGD/PEG Anesthesia History: none Family History: no anesthesia problems Allergies: Coded Allergies: No Known Allergies (Unverified , 06/15/17) Medications: see eMAR Past Medical History Cardiovascular: Denies: HTN, CAD, DE, valve dz, arrhythmia, other Pulmonary: Reports: other - respiratory failure Gastrointestinal/Genitourinary: Denies: GERD, CRI, ESRD, other Neurologic/Psychiatric: Denies: dementia, CVA, depression/anxiety, TIA, other Endocrine: Denies: DM, hypothyroidism, steroids, other HEENT: Denies: cataract (L), cataract (R), glaucoma, [place] (L), [place] (R), other Hematology/Immune: Denies: anemia, DVT, bleeding disorder, other Musculoskeletal/Integumentary: Denies: OA, RA, DJD, DDD, edema, other PMH Narrative: DKA S/P cardiopulmonary arrest; currently here for EGD/PEG PSxH Narrative: unknown Anesthesia Pre-op Phys. Exam Physician Exam Last Vital Signs Date Time Temp Pulse Resp B/P (MAP) Pulse Ox O2 Delivery O2 Flow Rate FiO2 07/17/17 11:40 97.0 79 22 132/91 100 Nasal Cannula 3.0 79 07/15/17 19:00 32 Constitutional: other - responsive to pain only; OPA in place Neurologic: other Cardiovascular: other - ST Respiratory: other - Ronchi Gastrointestinal: other Airway Exam Mallampati Classification 3 Mallampati Score: Class III MO: limited Dentures: no upper, no lower Anesthesia Pre-op A/P Labs Hematology Test 07/17/17 07:50 White Blood Count 8.0 K/UL (4.8-10.8) Red Blood Count 3.31 M/UL (4.70-6.10) L Hemoglobin 10.5 G/DL (14.2-18.0) L Hematocrit 31.6 % (42.0-52.0) L Mean Corpuscular Volume 95 FL (80-99) Mean Corpuscular Hemoglobin 31.8 PG (27.0-31.0) H Mean Corpuscular Hemoglobin Concent 33.3 G/DL (32.0-36.0) Red Cell Distribution Width 11.6 % (11.6-14.8) Platelet Count 440 K/UL (150-450) Mean Platelet Volume 7.9 FL (6.5-10.1) Neutrophils (%) (Auto) 68.0 % (45.0-75.0) Lymphocytes (%) (Auto) 19.5 % (20.0-45.0) L Monocytes (%) (Auto) 10.0 % (1.0-10.0) Eosinophils (%) (Auto) 1.6 % (0.0-3.0) Basophils (%) (Auto) 0.9 % (0.0-2.0) Coagulation Test 07/17/17 07:50 Prothrombin Time 11.0 SEC (9.30-11.50) Prothromb Time International Ratio 1.1 (0.9-1.1) Activated Partial Thromboplast Time 27 SEC (23-33) Chemistry Test 07/17/17 07:50 Sodium Level 136 MMOL/L (136-145) Potassium Level 4.2 MMOL/L (3.5-5.1) Chloride Level 100 MMOL/L (98-107) Carbon Dioxide Level 29 MMOL/L (21-32) Anion Gap 7 mmol/L (5-15) Blood Urea Nitrogen 13 mg/dL (7-18) Creatinine 0.7 MG/DL (0.55-1.30) Estimat Glomerular Filtration Rate > 60 mL/min (>60) Glucose Level 216 MG/DL (74-106) H Calcium Level 9.6 MG/DL (8.5-10.1) Studies Pre-op Studies: EKG - ST Risk Assessment & Plan Assessment: Patient is ST hr in 110. to pain only. Responsive to pain only; Verified Code status: DNR/DNI with mother. Plan: MAC Status Change Before Surgery: No Pre-Antibiotics Drug: ceftazidime Given Within 1 Hr of Incision: Yes - see nursing note; vosoLILY England CRNA Jul 17, 2017 12:57
--- NOTE | 2017-07-17 13:33 | 48 Hour Post Anesthesia Eval ---
Post Anesthesia Evaluation Procedure: PEG Date of Evaluation: Jul 17, 2017 Time of Evaluation: 13:27 Nausea: No Vomiting: No Hydration Status: adequate Mental Status/LOC: patient returned to baseline Follow-up Care/Observations: na Post-Anesthesia Complications: none Follow-up care needed: N/A LILY GALLEGO CRNA Jul 17, 2017 13:33
--- NOTE | 2017-07-17 14:56 | Infectious Diseases Prog Note ---
Assessment/Plan Problems: (1) Pneumonia Assessment & Plan: with Acinetobacter baumannii , on ceftazidime for two weeks to finish his course of treatment , EOT 07/18/16, monitor CXR. continue aspiration precaution and suctioning to avoid further aspiration , may benefit from tracheostomy (2) Pancreatitis Assessment & Plan: improved , monitor lipase, GI is following, restarted on tube feeding. (3) Cardiopulmonary arrest Assessment & Plan: was extubated from mechanical ventilation , as per family request and made DNR and started on morphin drip, but family changed his code status to full code , he is on tele monitor , cardiology is following , may need tracheostomy , had PEG placement . (4) Anoxic cerebral edema Assessment & Plan: with no improvement, has poor prognosis , no tracheostomy , or PEG tube placement as per family , now full code as per family request , but postural and spastic and unresponsive . (5) Dysphagia Assessment & Plan: he received permanent tube feeding for nutritional support , family wants to proceed with full support Assessment/Plan discussed with parents at the bedside Subjective Constitutional: Reports: no symptoms HEENT: Reports: no symptoms Respiratory: Reports: no symptoms Breasts: Reports: no symptoms Cardiovascular: Reports: no symptoms Gastrointestinal/Abdominal: Reports: no symptoms Genitourinary: Reports: no symptoms Neurologic: Reports: no symptoms Psychiatric: Reports: no symptoms Skin: Reports: no symptoms Endocrine: Reports: no symptoms Hematologic: Reports: no symptoms Musculoskeletal: Reports: no symptoms Allergies: Coded Allergies: No Known Allergies (Unverified , 06/15/17) Subjective he is still unresponsive , on high flow oxygen , in MARIE , postural and spastic in the lower extremities , dosen't follow commands , afebrile .opens eyes spontaneously on/off . dosen't track Objective Vital Signs Last 24 Hour Vital Signs Date Time Temp Pulse Resp B/P (MAP) Pulse Ox O2 Delivery O2 Flow Rate FiO2 07/17/17 13:10 97.6 115 20 159/99 100 Nasal Cannula 4.0 07/17/17 13:00 114 20 158/98 100 Nasal Cannula 4.0 07/17/17 12:54 100 14 100 07/17/17 12:50 119 20 159/99 99 Nasal Cannula 4.0 07/17/17 12:45 118 20 160/100 99 Nasal Cannula 4.0 07/17/17 12:40 97.5 114 20 134/104 99 Nasal Cannula 4.0 07/17/17 11:40 97.0 79 22 132/91 100 Nasal Cannula 3.0 79 07/17/17 08:36 155/98 07/17/17 08:00 110 07/17/17 08:00 97.3 86 22 155/98 100 Nasal Cannula 3.0 86 07/17/17 04:10 142/95 07/17/17 04:00 97.9 105 40 149/105 100 Nasal Cannula 3.0 07/17/17 04:00 107 07/17/17 00:00 98.0 102 27 139/90 100 Nasal Cannula 3.0 07/17/17 00:00 95 07/16/17 21:03 144/92 07/16/17 20:00 98.2 112 27 144/92 100 Nasal Cannula 3.0 07/16/17 20:00 107 07/16/17 16:54 116 07/16/17 16:00 98.3 119 27 151/103 100 Nasal Cannula 3.0 Height (Feet): 5 Height (Inches): 6.00 Weight (Pounds): 120 General Appearance: WD/WN, no acute distress, cachetic HEENT: normocephalic, atraumatic, anicteric, mucous membranes moist, no JVD Respiratory/Chest: chest wall non-tender, lungs clear, normal breath sounds, no respiratory distress, no accessory muscle use Cardiovascular: normal peripheral pulses, normal rate, regular rhythm, no gallop/murmur, no JVD Abdomen: normal bowel sounds, soft, non tender, no organomegaly, non distended , no mass, no scars Genitourinary: normal external genitalia Extremities: no cyanosis, no clubbing Skin: no rash, no lesions, ulcers Neurologic/Psychiatric: unresponsiveness Laboratory Tests Test 07/17/17 07:50 White Blood Count 8.0 K/UL (4.8-10.8) Red Blood Count 3.31 M/UL (4.70-6.10) L Hemoglobin 10.5 G/DL (14.2-18.0) L Hematocrit 31.6 % (42.0-52.0) L Mean Corpuscular Volume 95 FL (80-99) Mean Corpuscular Hemoglobin 31.8 PG (27.0-31.0) H Mean Corpuscular Hemoglobin Concent 33.3 G/DL (32.0-36.0) Red Cell Distribution Width 11.6 % (11.6-14.8) Platelet Count 440 K/UL (150-450) Mean Platelet Volume 7.9 FL (6.5-10.1) Neutrophils (%) (Auto) 68.0 % (45.0-75.0) Lymphocytes (%) (Auto) 19.5 % (20.0-45.0) L Monocytes (%) (Auto) 10.0 % (1.0-10.0) Eosinophils (%) (Auto) 1.6 % (0.0-3.0) Basophils (%) (Auto) 0.9 % (0.0-2.0) Prothrombin Time 11.0 SEC (9.30-11.50) Prothromb Time International Ratio 1.1 (0.9-1.1) Activated Partial Thromboplast Time 27 SEC (23-33) Sodium Level 136 MMOL/L (136-145) Potassium Level 4.2 MMOL/L (3.5-5.1) Chloride Level 100 MMOL/L (98-107) Carbon Dioxide Level 29 MMOL/L (21-32) Anion Gap 7 mmol/L (5-15) Blood Urea Nitrogen 13 mg/dL (7-18) Creatinine 0.7 MG/DL (0.55-1.30) Estimat Glomerular Filtration Rate > 60 mL/min (>60) Glucose Level 216 MG/DL (74-106) H Calcium Level 9.6 MG/DL (8.5-10.1) Current Medications Medications (Trade) Dose Ordered Sig/Conrado Route PRN Reason Start Time Stop Time Status Last Admin Dose Admin Acetaminophen (Tylenol) 500 mg Q6HR PRN NG Mild Pain/Temp > 100.5 07/01/17 02:45 07/31/17 02:44 07/08/17 20:09 Ceftazidime 1 gm/ Sodium Chloride 55 ml @ 110 mls/hr Q8HR IV 07/11/17 22:00 07/18/17 22:15 07/17/17 14:01 Clonidine HCl (Catapres Tab) 0.1 mg Q2H PRN NG For High Blood Pressure 07/10/17 16:00 08/09/17 15:59 Collagenase (Santyl) 1 applic DAILY TOPIC 07/13/17 15:00 08/12/17 14:59 07/17/17 08:35 Dextrose (Dextrose 50%) STAT PRN IV Hypoglycemia 07/01/17 22:30 07/29/17 22:29 07/12/17 03:56 Dextrose/ Electrolytes 1,000 ml @ 75 mls/hr [id number] IV 07/08/17 15:00 08/07/17 14:59 07/17/17 10:47 Insulin Aspart (NovoLOG) Q6HR SUBQ 07/16/17 06:00 08/05/17 19:29 07/16/17 11:49 Insulin Detemir (Levemir) 23 units Q12HR SUBQ 07/16/17 21:00 08/15/17 20:59 07/16/17 21:09 Losartan Potassium (Cozaar) 50 mg EVERY 12 HOURS NG 07/07/17 21:00 08/06/17 20:59 07/16/17 21:03 Saad Cummings M.D. Jul 17, 2017 14:56
--- NOTE | 2017-07-17 19:30 | Procedure Note ---
DATE OF PROCEDURE: 07/17/2017 SURGEON: Sumeet Rico M.D. PROCEDURE: Upper endoscopy with PEG placement. ANESTHESIA: Per CLAIM PROCESSOR, Serena Tarrillion. INSTRUMENT: Olympus adult flexible endoscope. INDICATION: Dysphagia. REASON FOR PROCEDURE: The procedure, risks, benefits, and possible consequences, including hemorrhage, aspiration, perforation and infection, and alternative treatments, were explained to the patient/legal guardian by Dr. Ricardo Rico and the patient/legal guardian understood and accepted these risks. DESCRIPTION OF PROCEDURE: After informed consent was obtained and the patient was adequately sedated, Olympus upper endoscope was advanced from mouth into the second portion of duodenum and retroflexion was performed of the stomach. Then under endoscopic guidance and sterile condition, a 20-Japanese pull type of G-tube was successfully placed in the epigastric area. The distance from the tip of the tube to skin was about 3 centimeters in size. The patient tolerated the procedure well without any complication. FINDINGS: Status post successful percutaneous endoscopic gastrostomy placement. RECOMMENDATIONS: 1. Abdominal binder. 2. Elevate the head at all times. 3. G-tube flush. 4. G-tube care. 5. Start tube feeding later today. I want to thank, Dr. Matson, for this kind referral. Ricardo Rico M.D. DR: ZOHAIB JOB#: [id number] CC: Gopi Matson M.D.; Fax#: [phone]
[2017-07-18] VITALS: BP 146/89
--- NOTE | 2017-07-18 00:01 | Nephrology Progress Note ---
REMIGIO KNOX 07/18/17 0001: Assessment/Plan Problem List: (1) Hyponatremia Assessment: resolved. (2) Sepsis Assessment: improving. (3) Alcohol withdrawal (4) Pneumonia Assessment: resolving. (5) Cardiopulmonary arrest (6) Metabolic acidosis Assessment: resolved. (7) DKA (diabetic ketoacidosis) Assessment: resolved. (8) Transaminitis (9) Hypokalemia (10) Hypernatremia Assessment: resolved. (11) Anoxic encephalopathy syndrome (12) Anoxic cerebral edema (13) Shock liver (14) Fever Assessment: resolved. (15) Respiratory distress (16) Pancreatitis Assessment: resolved (17) Elevated troponin Plan pulm following. FULL CODE. pending PEG/trach when more stable. abx per ID. cardio and neuro following. d/w RN. monitor labs. Subjective Subjective late entry for 07/17 - Objective Objective Last 24 Hour Vital Signs Date Time Temp Pulse Resp B/P (MAP) Pulse Ox O2 Delivery O2 Flow Rate FiO2 07/17/17 20:00 98.2 116 24 148/112 98 Nasal Cannula 3.0 07/17/17 20:00 148/112 07/17/17 20:00 110 07/17/17 16:40 119 07/17/17 16:00 98.1 112 22 140/101 97 Nasal Cannula 3.0 07/17/17 13:10 97.6 115 20 159/99 100 Nasal Cannula 4.0 07/17/17 13:00 114 20 158/98 100 Nasal Cannula 4.0 07/17/17 12:54 100 14 100 07/17/17 12:50 119 20 159/99 99 Nasal Cannula 4.0 07/17/17 12:45 118 20 160/100 99 Nasal Cannula 4.0 07/17/17 12:40 97.5 114 20 134/104 99 Nasal Cannula 4.0 07/17/17 12:00 79 07/17/17 11:40 97.0 79 22 132/91 100 Nasal Cannula 3.0 79 07/17/17 08:36 155/98 07/17/17 08:00 110 07/17/17 08:00 97.3 86 22 155/98 100 Nasal Cannula 3.0 86 07/17/17 04:10 142/95 07/17/17 04:00 97.9 105 40 149/105 100 Nasal Cannula 3.0 2/6/18 04:00 107 Intake and Output 07/17/17 07/18/17 19:00 07:00 Intake Total 1205 ml 575 ml Output Total 1075 ml 90 ml Balance 130 ml 485 ml Free Water 200 ml IV Total 675 ml 355 ml Tube Feeding 330 ml 220 ml Output Urine Total 1075 ml 90 ml Laboratory Tests 07/17/17 07:50: White Blood Count 8.0, Red Blood Count 3.31L, Hemoglobin 10.5L, Hematocrit 31.6L , Mean Corpuscular Volume 95, Mean Corpuscular Hemoglobin 31.8H, Mean Corpuscular Hemoglobin Concent 33.3, Red Cell Distribution Width 11.6, Platelet Count 440, Mean Platelet Volume 7.9, Neutrophils (%) (Auto) 68.0, Lymphocytes (% ) (Auto) 19.5L, Monocytes (%) (Auto) 10.0, Eosinophils (%) (Auto) 1.6, Basophils (%) (Auto) 0.9, Prothrombin Time 11.0, Prothromb Time International Ratio 1.1, Activated Partial Thromboplast Time 27, Sodium Level 136, Potassium Level 4.2, Chloride Level 100, Carbon Dioxide Level 29, Anion Gap 7, Blood Urea Nitrogen 13, Creatinine 0.7, Estimat Glomerular Filtration Rate > 60, Glucose Level 216H, Calcium Level 9.6 Height (Feet): 5 Height (Inches): 6.00 Weight (Pounds): 120 SOFIA HAYES P.A. 07/18/17 1248: Assessment/Plan Problem List: (1) Respiratory distress Assessment: now intubated (2) Pneumonia Assessment: aspiration? (3) Cardiopulmonary arrest Assessment: due to DKA. (4) Metabolic acidosis (5) DKA (diabetic ketoacidosis) Assessment: resolved. (6) Hypernatremia (7) Anoxic encephalopathy syndrome (8) Anoxic cerebral edema (9) Shock liver (10) Diarrhea (11) Dysphagia (12) Pancreatitis Assessment: resolved. (13) Elevated troponin (14) Hyponatremia Assessment: corrected (15) Alcohol withdrawal (16) Sepsis (17) Fever Plan GTF per RD and GI recs. abx per ID. d/c planning. Subjective Subjective s/p PEG. Objective Objective General Appearance: no apparent distress Cardiovascular: normal rate, regular rhythm Respiratory/Chest: decreased breath sounds Abdomen: non tender, soft REMIGIO KNOX Jul 18, 2017 00:01 SOFIA HAYES Jul 18, 2017 12:48
[2017-07-18] MEDS: NovoLOG Insulin Flexpen SUBQ SCH ×4 (01:03→17:16)
[2017-07-18] MEDS: D5W w/KCl 20mEq 1,000 ML IV SCH ×2 (01:07→14:00)
[2017-07-18 04:00] VITALS: BP 133/84
[2017-07-18 05:22] LABS: BASOPHILS % (AUTO) 1.4 % (0.0-2.0); EOSINOPHILS % (AUTO) 1.7 % (0.0-3.0); HEMATOCRIT 26.2 % (42.0-52.0); HEMOGLOBIN 8.7 G/DL (14.2-18.0); LYMPHOCYTES % (AUTO) 14.2 % (20.0-45.0); MEAN CORPUSCULAR VOLUME 97 FL (80-99); NEUTROPHILS % (AUTO) 71.7 % (45.0-75.0); PLATELET COUNT 380 K/UL (150-450); RED CELL DISTRIBUTION WIDTH 11.7 % (11.6-14.8); WHITE BLOOD COUNT 9.4 K/UL (4.8-10.8)
[2017-07-18 05:28] LABS: ANION GAP 7 mmol/L (5-15); BLOOD UREA NITROGEN 15 mg/dL (7-18); CALCIUM 9.1 MG/DL (8.5-10.1); CARBON DIOXIDE 29 MMOL/L (21-32); CHLORIDE 100 MMOL/L (98-107); CREATININE 0.6 MG/DL (0.55-1.30); POTASSIUM 4.6 MMOL/L (3.5-5.1); SODIUM 136 MMOL/L (136-145)
[2017-07-18 08:00] VITALS: BP 142/87
--- NOTE | 2017-07-18 08:21 | Pulmonology Progress Note ---
Assessment/Plan Assessment/Plan IMPRESSION: 1. Respiratory failure; extubated 2. Cannabis usage. 3. Diabetic ketoacidosis. 4. Troponin leak. 5. Tachycardia. 6. Anoxic brain injury DISCUSSION: Continue present management and care. now extubated Poor prognosis Remains on supplemental O2; now with lower FiO2; on 4L/min ABG adequate Continue oral airway/suctioning CXR clear Subjective Interval Events: None Constitutional: Reports: no symptoms HEENT: Repors: no symptoms Respiratory: Reports: no symptoms Cardiovascular: Reports: no symptoms Gastrointestinal/Abdominal: Reports: no symptoms Allergies: Coded Allergies: No Known Allergies (Unverified , 06/15/17) Objective Last 24 Hour Vital Signs Date Time Temp Pulse Resp B/P (MAP) Pulse Ox O2 Delivery O2 Flow Rate FiO2 07/18/17 04:00 98.4 95 24 133/84 99 Nasal Cannula 3.0 07/18/17 04:00 95 07/18/17 00:00 98.2 110 26 146/89 99 Nasal Cannula 3.0 07/18/17 00:00 118 07/17/17 20:00 98.2 116 24 148/112 98 Nasal Cannula 3.0 07/17/17 20:00 148/112 07/17/17 20:00 110 07/17/17 19:00 97 Nasal Cannula 3.0 32 07/17/17 19:00 Nasal Cannula 3.0 32 07/17/17 16:40 119 07/17/17 16:00 98.1 112 22 140/101 97 Nasal Cannula 3.0 07/17/17 13:10 97.6 115 20 159/99 100 Nasal Cannula 4.0 07/17/17 13:00 114 20 158/98 100 Nasal Cannula 4.0 07/17/17 12:54 100 14 100 07/17/17 12:50 119 20 159/99 99 Nasal Cannula 4.0 07/17/17 12:45 118 20 160/100 99 Nasal Cannula 4.0 07/17/17 12:40 97.5 114 20 134/104 99 Nasal Cannula 4.0 07/17/17 12:00 79 07/17/17 11:40 97.0 79 22 132/91 100 Nasal Cannula 3.0 79 07/17/17 08:36 155/98 Intake and Output 07/17/17 07/18/17 19:00 07:00 Intake Total 1205 ml 1865 ml Output Total 1075 ml 385 ml Balance 130 ml 1480 ml Free Water 200 ml 200 ml IV Total 675 ml 1005 ml Tube Feeding 330 ml 660 ml Output Urine Total 1075 ml 385 ml General Appearance: no acute distress HEENT: normocephalic Respiratory/Chest: chest wall non-tender, lungs clear Cardiovascular: normal peripheral pulses, normal rate Abdomen: normal bowel sounds Laboratory Tests 07/18/17 03:35: White Blood Count 9.4, Red Blood Count 2.70L, Hemoglobin 8.7L, Hematocrit 26.2L , Mean Corpuscular Volume 97, Mean Corpuscular Hemoglobin 32.3H, Mean Corpuscular Hemoglobin Concent 33.3, Red Cell Distribution Width 11.7, Platelet Count 380, Mean Platelet Volume 7.7, Neutrophils (%) (Auto) 71.7, Lymphocytes (% ) (Auto) 14.2L, Monocytes (%) (Auto) 11.0H, Eosinophils (%) (Auto) 1.7, Basophils (%) (Auto) 1.4, Sodium Level 136, Potassium Level 4.6, Chloride Level 100, Carbon Dioxide Level 29, Anion Gap 7, Blood Urea Nitrogen 15, Creatinine 0.6, Estimat Glomerular Filtration Rate > 60, Glucose Level 249H, Calcium Level 9.1 Current Medications Medications (Trade) Dose Ordered Sig/Conrado Route PRN Reason Start Time Stop Time Status Last Admin Dose Admin Acetaminophen (Tylenol) 500 mg Q6HR PRN NG Mild Pain/Temp > 100.5 07/01/17 02:45 07/31/17 02:44 07/08/17 20:09 Ceftazidime 1 gm/ Sodium Chloride 55 ml @ 110 mls/hr Q8HR IV 07/11/17 22:00 07/18/17 22:15 07/18/17 05:03 Clonidine HCl (Catapres Tab) 0.1 mg Q2H PRN NG For High Blood Pressure 07/10/17 16:00 08/09/17 15:59 Collagenase (Santyl) 1 applic DAILY TOPIC 07/13/17 15:00 08/12/17 14:59 07/17/17 08:35 Dextrose (Dextrose 50%) STAT PRN IV Hypoglycemia 07/01/17 22:30 07/29/17 22:29 07/12/17 03:56 Dextrose/ Electrolytes 1,000 ml @ 75 mls/hr [id number] IV 07/08/17 15:00 08/07/17 14:59 07/18/17 01:07 Insulin Aspart (NovoLOG) Q6HR SUBQ 07/16/17 06:00 08/05/17 19:29 07/18/17 05:04 Insulin Detemir (Levemir) 23 units Q12HR SUBQ 07/16/17 21:00 08/15/17 20:59 07/17/17 20:02 Losartan Potassium (Cozaar) 50 mg EVERY 12 HOURS NG 07/07/17 21:00 08/06/17 20:59 07/17/17 20:00 Paulo Floyd MD Jul 18, 2017 08:21
[2017-07-18] MEDS: Losartan 50mg tab NG SCH ×3 (08:58→21:00)
[2017-07-18] MEDS: Levemir Flexpen SUBQ SCH ×2 (09:08→20:15)
--- NOTE | 2017-07-18 10:22 | Cardiac Electrophysiology PN ---
Assessment/Plan Assessment/Plan 1. Troponin leak due to renal failure. EF 60%. 2. Tachycardia due to diabetic ketoacidosis and sepsis.Resolved 3. S/P Respiratory failure with Terminal extubation. On oxygen. 4. Pneumonia on abx per Dr. Cummings 5. Pancreatitis. 6. ARF.Resolved 7. Marijuana use. 8. Suspect diffuse cerebral anoxia and edema with decorticate rigidity per Dr Cano. 9. Alcohol withdrawal. 10. Severe Hypernatremia. Na 165, improved to 139 11. Full code. 12. Dysphagia.S/P PEG 13. DNR, DNI DW RN Subjective Subjective On MARIE in Sinus Rhythm. DNR and DNI .S/P PEG placement Objective Last 24 Hour Vital Signs Date Time Temp Pulse Resp B/P (MAP) Pulse Ox O2 Delivery O2 Flow Rate FiO2 07/18/17 08:59 96 07/18/17 08:58 129/87 07/18/17 08:00 97.7 105 20 142/87 100 Nasal Cannula 3.0 07/18/17 04:00 98.4 95 24 133/84 99 Nasal Cannula 3.0 07/18/17 04:00 95 07/18/17 00:00 98.2 110 26 146/89 99 Nasal Cannula 3.0 07/18/17 00:00 118 07/17/17 20:00 98.2 116 24 148/112 98 Nasal Cannula 3.0 07/17/17 20:00 148/112 07/17/17 20:00 110 07/17/17 19:00 97 Nasal Cannula 3.0 32 07/17/17 19:00 Nasal Cannula 3.0 32 07/17/17 16:40 119 07/17/17 16:00 98.1 112 22 140/101 97 Nasal Cannula 3.0 07/17/17 13:10 97.6 115 20 159/99 100 Nasal Cannula 4.0 07/17/17 13:00 114 20 158/98 100 Nasal Cannula 4.0 07/17/17 12:54 100 14 100 07/17/17 12:50 119 20 159/99 99 Nasal Cannula 4.0 07/17/17 12:45 118 20 160/100 99 Nasal Cannula 4.0 07/17/17 12:40 97.5 114 20 134/104 99 Nasal Cannula 4.0 07/17/17 12:00 79 07/17/17 11:40 97.0 79 22 132/91 100 Nasal Cannula 3.0 79 Intake and Output 07/17/17 07/18/17 19:00 07:00 Intake Total 1205 ml 1865 ml Output Total 1075 ml 385 ml Balance 130 ml 1480 ml Free Water 200 ml 200 ml IV Total 675 ml 1005 ml Tube Feeding 330 ml 660 ml Output Urine Total 1075 ml 385 ml Laboratory Tests Test 07/18/17 03:35 White Blood Count 9.4 K/UL (4.8-10.8) Red Blood Count 2.70 M/UL (4.70-6.10) L Hemoglobin 8.7 G/DL (14.2-18.0) L Hematocrit 26.2 % (42.0-52.0) L Mean Corpuscular Volume 97 FL (80-99) Mean Corpuscular Hemoglobin 32.3 PG (27.0-31.0) H Mean Corpuscular Hemoglobin Concent 33.3 G/DL (32.0-36.0) Red Cell Distribution Width 11.7 % (11.6-14.8) Platelet Count 380 K/UL (150-450) Mean Platelet Volume 7.7 FL (6.5-10.1) Neutrophils (%) (Auto) 71.7 % (45.0-75.0) Lymphocytes (%) (Auto) 14.2 % (20.0-45.0) L Monocytes (%) (Auto) 11.0 % (1.0-10.0) H Eosinophils (%) (Auto) 1.7 % (0.0-3.0) Basophils (%) (Auto) 1.4 % (0.0-2.0) Sodium Level 136 MMOL/L (136-145) Potassium Level 4.6 MMOL/L (3.5-5.1) Chloride Level 100 MMOL/L (98-107) Carbon Dioxide Level 29 MMOL/L (21-32) Anion Gap 7 mmol/L (5-15) Blood Urea Nitrogen 15 mg/dL (7-18) Creatinine 0.6 MG/DL (0.55-1.30) Estimat Glomerular Filtration Rate > 60 mL/min (>60) Glucose Level 249 MG/DL (74-106) H Calcium Level 9.1 MG/DL (8.5-10.1) Objective HEAD AND NECK: No JVD. LUNGS: Clear. CARDIOVASCULAR: Regular S1 and S2 with no gallop or murmur. ABDOMEN: PEG in place EXTREMITIES: No pitting edema. ALBERT ROWAN Jul 18, 2017 10:22
--- NOTE | 2017-07-18 11:51 | GI Progress Note ---
Assessment/Plan Problems: (1) Shock liver ICD Codes: K72.00 - Acute and subacute hepatic failure without coma SNOMED: 448849976 (2) Anoxic cerebral edema ICD Codes: G93.6 - Cerebral edema; R09.02 - Hypoxemia SNOMED: 0695984, 834187973 (3) Transaminitis ICD Codes: R74.0 - Nonspecific elevation of levels of transaminase and lactic acid dehydrogenase [LDH] SNOMED: 192136292, 332851655 (4) Alcohol withdrawal ICD Codes: F10.239 - Alcohol dependence with withdrawal, unspecified SNOMED: 888735841 (5) Pancreatitis ICD Codes: K85.90 - Acute pancreatitis without necrosis or infection, unspecified SNOMED: 81127809 Status: unchanged Status Narrative Discussed with Dr. Rico. Assessment/Plan s/p PEG GTFs per RD electrolyte correction fu labs Subjective Subjective limited Objective Last 24 Hour Vital Signs Date Time Temp Pulse Resp B/P (MAP) Pulse Ox O2 Delivery O2 Flow Rate FiO2 07/18/17 08:59 96 07/18/17 08:58 129/87 07/18/17 08:00 97.7 105 20 142/87 100 Nasal Cannula 3.0 07/18/17 04:00 98.4 95 24 133/84 99 Nasal Cannula 3.0 07/18/17 04:00 95 07/18/17 00:00 98.2 110 26 146/89 99 Nasal Cannula 3.0 07/18/17 00:00 118 07/17/17 20:00 98.2 116 24 148/112 98 Nasal Cannula 3.0 07/17/17 20:00 148/112 07/17/17 20:00 110 07/17/17 19:00 97 Nasal Cannula 3.0 32 07/17/17 19:00 Nasal Cannula 3.0 32 07/17/17 16:40 119 07/17/17 16:00 98.1 112 22 140/101 97 Nasal Cannula 3.0 07/17/17 13:10 97.6 115 20 159/99 100 Nasal Cannula 4.0 07/17/17 13:00 114 20 158/98 100 Nasal Cannula 4.0 07/17/17 12:54 100 14 100 07/17/17 12:50 119 20 159/99 99 Nasal Cannula 4.0 07/17/17 12:45 118 20 160/100 99 Nasal Cannula 4.0 07/17/17 12:40 97.5 114 20 134/104 99 Nasal Cannula 4.0 07/17/17 12:00 79 Intake and Output 07/17/17 07/18/17 19:00 07:00 Intake Total 1205 ml 1865 ml Output Total 1075 ml 385 ml Balance 130 ml 1480 ml Free Water 200 ml 200 ml IV Total 675 ml 1005 ml Tube Feeding 330 ml 660 ml Output Urine Total 1075 ml 385 ml Laboratory Tests Test 07/18/17 03:35 White Blood Count 9.4 K/UL (4.8-10.8) Red Blood Count 2.70 M/UL (4.70-6.10) L Hemoglobin 8.7 G/DL (14.2-18.0) L Hematocrit 26.2 % (42.0-52.0) L Mean Corpuscular Volume 97 FL (80-99) Mean Corpuscular Hemoglobin 32.3 PG (27.0-31.0) H Mean Corpuscular Hemoglobin Concent 33.3 G/DL (32.0-36.0) Red Cell Distribution Width 11.7 % (11.6-14.8) Platelet Count 380 K/UL (150-450) Mean Platelet Volume 7.7 FL (6.5-10.1) Neutrophils (%) (Auto) 71.7 % (45.0-75.0) Lymphocytes (%) (Auto) 14.2 % (20.0-45.0) L Monocytes (%) (Auto) 11.0 % (1.0-10.0) H Eosinophils (%) (Auto) 1.7 % (0.0-3.0) Basophils (%) (Auto) 1.4 % (0.0-2.0) Sodium Level 136 MMOL/L (136-145) Potassium Level 4.6 MMOL/L (3.5-5.1) Chloride Level 100 MMOL/L (98-107) Carbon Dioxide Level 29 MMOL/L (21-32) Anion Gap 7 mmol/L (5-15) Blood Urea Nitrogen 15 mg/dL (7-18) Creatinine 0.6 MG/DL (0.55-1.30) Estimat Glomerular Filtration Rate > 60 mL/min (>60) Glucose Level 249 MG/DL (74-106) H Calcium Level 9.1 MG/DL (8.5-10.1) Height (Feet): 5 Height (Inches): 6.00 Weight (Pounds): 120 General Appearance: no apparent distress, cachetic Cardiovascular: normal rate Respiratory/Chest: normal breath sounds, no respiratory distress, other - NC Abdominal Exam: normal bowel sounds, non tender, soft Extremities: non-tender Lashawn Mason N.P. Jul 18, 2017 11:51
[2017-07-18 12:00] VITALS: BP 142/87
--- NOTE | 2017-07-18 15:25 | Infectious Diseases Prog Note ---
Assessment/Plan Problems: (1) Pneumonia Assessment & Plan: with Acinetobacter baumannii , on ceftazidime for two weeks to finish his course of treatment , EOT 07/18/16, monitor CXR. continue aspiration precaution and suctioning to avoid further aspiration , may benefit from tracheostomy (2) Pancreatitis Assessment & Plan: improved , monitor lipase, GI is following, restarted on tube feeding. (3) Cardiopulmonary arrest Assessment & Plan: was extubated from mechanical ventilation , as per family request and made DNR and started on morphin drip, but family changed his code status to full code , he is on tele monitor , cardiology is following , may need tracheostomy , had PEG placement . (4) Anoxic cerebral edema Assessment & Plan: with no improvement, has poor prognosis , no tracheostomy , or PEG tube placement as per family , now full code as per family request , but postural and spastic and unresponsive . (5) Dysphagia Assessment & Plan: he received permanent tube feeding for nutritional support , family wants to proceed with full support Assessment/Plan discussed with parents at the bedside Subjective ROS Limited/Unobtainable: Yes Allergies: Coded Allergies: No Known Allergies (Unverified , 06/15/17) Subjective he is still unresponsive , on high flow oxygen , in MARIE , postural and spastic in the lower extremities , dosen't follow commands , afebrile .opens eyes spontaneously on/off . dosen't track Objective Vital Signs Last 24 Hour Vital Signs Date Time Temp Pulse Resp B/P (MAP) Pulse Ox O2 Delivery O2 Flow Rate FiO2 07/18/17 12:00 98.1 105 20 142/87 100 Nasal Cannula 3.0 07/18/17 11:47 99 07/18/17 08:59 96 07/18/17 08:58 129/87 07/18/17 08:00 97.7 105 20 142/87 100 Nasal Cannula 3.0 07/18/17 04:00 98.4 95 24 133/84 99 Nasal Cannula 3.0 07/18/17 04:00 95 07/18/17 00:00 98.2 110 26 146/89 99 Nasal Cannula 3.0 07/18/17 00:00 118 07/17/17 20:00 98.2 116 24 148/112 98 Nasal Cannula 3.0 07/17/17 20:00 148/112 07/17/17 20:00 110 07/17/17 19:00 97 Nasal Cannula 3.0 32 07/17/17 19:00 Nasal Cannula 3.0 32 07/17/17 16:40 119 07/17/17 16:00 98.1 112 22 140/101 97 Nasal Cannula 3.0 Height (Feet): 5 Height (Inches): 6.00 Weight (Pounds): 120 General Appearance: WD/WN, no acute distress, cachetic HEENT: normocephalic, atraumatic, anicteric, mucous membranes moist, PERRL Respiratory/Chest: chest wall non-tender, lungs clear, normal breath sounds, no respiratory distress, no accessory muscle use Cardiovascular: normal peripheral pulses, normal rate, regular rhythm, no gallop/murmur, no JVD Abdomen: normal bowel sounds, soft, non tender, no organomegaly, non distended , no mass, no scars, other - PEG tube site is clean Extremities: no cyanosis, no clubbing Skin: no rash, no lesions, no ulcers Neurologic/Psychiatric: unresponsiveness Lymphatic: no neck adenopathy, no groin adenopathy Laboratory Tests Test 07/18/17 03:35 White Blood Count 9.4 K/UL (4.8-10.8) Red Blood Count 2.70 M/UL (4.70-6.10) L Hemoglobin 8.7 G/DL (14.2-18.0) L Hematocrit 26.2 % (42.0-52.0) L Mean Corpuscular Volume 97 FL (80-99) Mean Corpuscular Hemoglobin 32.3 PG (27.0-31.0) H Mean Corpuscular Hemoglobin Concent 33.3 G/DL (32.0-36.0) Red Cell Distribution Width 11.7 % (11.6-14.8) Platelet Count 380 K/UL (150-450) Mean Platelet Volume 7.7 FL (6.5-10.1) Neutrophils (%) (Auto) 71.7 % (45.0-75.0) Lymphocytes (%) (Auto) 14.2 % (20.0-45.0) L Monocytes (%) (Auto) 11.0 % (1.0-10.0) H Eosinophils (%) (Auto) 1.7 % (0.0-3.0) Basophils (%) (Auto) 1.4 % (0.0-2.0) Sodium Level 136 MMOL/L (136-145) Potassium Level 4.6 MMOL/L (3.5-5.1) Chloride Level 100 MMOL/L (98-107) Carbon Dioxide Level 29 MMOL/L (21-32) Anion Gap 7 mmol/L (5-15) Blood Urea Nitrogen 15 mg/dL (7-18) Creatinine 0.6 MG/DL (0.55-1.30) Estimat Glomerular Filtration Rate > 60 mL/min (>60) Glucose Level 249 MG/DL (74-106) H Calcium Level 9.1 MG/DL (8.5-10.1) Current Medications Medications (Trade) Dose Ordered Sig/Conrado Route PRN Reason Start Time Stop Time Status Last Admin Dose Admin Acetaminophen (Tylenol) 500 mg Q6HR PRN NG Mild Pain/Temp > 100.5 07/01/17 02:45 07/31/17 02:44 07/08/17 20:09 Ceftazidime 1 gm/ Sodium Chloride 55 ml @ 110 mls/hr Q8HR IV 07/11/17 22:00 07/18/17 22:15 07/18/17 14:20 Clonidine HCl (Catapres Tab) 0.1 mg Q2H PRN NG For High Blood Pressure 07/10/17 16:00 08/09/17 15:59 Collagenase (Santyl) 1 applic DAILY TOPIC 07/13/17 15:00 08/12/17 14:59 07/18/17 09:08 Dextrose (Dextrose 50%) STAT PRN IV Hypoglycemia 07/01/17 22:30 07/29/17 22:29 07/12/17 03:56 Dextrose/ Electrolytes 1,000 ml @ 75 mls/hr [id number] IV 07/08/17 15:00 08/07/17 14:59 07/18/17 14:00 Insulin Aspart (NovoLOG) Q6HR SUBQ 07/16/17 06:00 08/05/17 19:29 07/18/17 11:41 Insulin Detemir (Levemir) 23 units Q12HR SUBQ 07/16/17 21:00 08/15/17 20:59 07/18/17 09:08 Losartan Potassium (Cozaar) 50 mg EVERY 12 HOURS NG 1/27/18 21:00 08/06/17 20:59 07/18/17 08:58 Saad Cummings M.D. Jul 18, 2017 15:25
[2017-07-18 15:56] VITALS: BP 132/77
--- NOTE | 2017-07-18 18:24 | Nephrology Progress Note ---
Assessment/Plan Problem List: (1) Hypernatremia Assessment: Improved (2) Hypokalemia Assessment: corrected (3) Fever (4) Acidosis (5) Respiratory distress (6) Pancreatitis (7) Elevated troponin (8) Alcohol withdrawal (9) Pneumonia (10) Sepsis (11) Cardiopulmonary arrest (12) Metabolic acidosis (13) DKA (diabetic ketoacidosis) (14) Renal failure Assessment: Improved (15) DNR (do not resuscitate) Plan Continue current treatment plan D5W+KCL@ 75cc/hr Accu-check q4h Monitor temp Suspect diffuse cerebral anoxia and edema with decorticate rigidity per Dr Cano. Monitor lytes, correct prn Monitor neuro status, f/u with neurology rec Continue NG tube feeding and IVF Pending PEG placement Strict glycemic control Monitor renal function on current abx Abx per ID Monitor intake and output Continue carpenter AM labs Subjective ROS Limited/Unobtainable: Yes Subjective Seen in MARIE,unresponsive, on venturi mask Objective Objective Last 24 Hour Vital Signs Date Time Temp Pulse Resp B/P (MAP) Pulse Ox O2 Delivery O2 Flow Rate FiO2 07/18/17 16:27 109 07/18/17 15:56 98.2 93 20 132/77 100 Nasal Cannula 3.0 07/18/17 12:00 98.1 105 20 142/87 100 Nasal Cannula 3.0 07/18/17 11:47 99 07/18/17 08:59 96 07/18/17 08:58 129/87 07/18/17 08:00 97.7 105 20 142/87 100 Nasal Cannula 3.0 07/18/17 04:00 98.4 95 24 133/84 99 Nasal Cannula 3.0 07/18/17 04:00 95 07/18/17 00:00 98.2 110 26 146/89 99 Nasal Cannula 3.0 07/18/17 00:00 118 07/17/17 20:00 98.2 116 24 148/112 98 Nasal Cannula 3.0 07/17/17 20:00 148/112 07/17/17 20:00 110 07/17/17 19:00 97 Nasal Cannula 3.0 32 07/17/17 19:00 Nasal Cannula 3.0 32 Intake and Output 07/17/17 07/18/17 19:00 07:00 Intake Total 1205 ml 1865 ml Output Total 1075 ml 385 ml Balance 130 ml 1480 ml Free Water 200 ml 200 ml IV Total 675 ml 1005 ml Tube Feeding 330 ml 660 ml Output Urine Total 1075 ml 385 ml Laboratory Tests 07/18/17 03:35: White Blood Count 9.4, Red Blood Count 2.70L, Hemoglobin 8.7L, Hematocrit 26.2L , Mean Corpuscular Volume 97, Mean Corpuscular Hemoglobin 32.3H, Mean Corpuscular Hemoglobin Concent 33.3, Red Cell Distribution Width 11.7, Platelet Count 380, Mean Platelet Volume 7.7, Neutrophils (%) (Auto) 71.7, Lymphocytes (% ) (Auto) 14.2L, Monocytes (%) (Auto) 11.0H, Eosinophils (%) (Auto) 1.7, Basophils (%) (Auto) 1.4, Sodium Level 136, Potassium Level 4.6, Chloride Level 100, Carbon Dioxide Level 29, Anion Gap 7, Blood Urea Nitrogen 15, Creatinine 0.6, Estimat Glomerular Filtration Rate > 60, Glucose Level 249H, Calcium Level 9.1 Height (Feet): 5 Height (Inches): 6.00 Weight (Pounds): 120 General Appearance: no apparent distress Neck: stiff neck Cardiovascular: normal rate, no JVD Respiratory/Chest: decreased breath sounds Abdomen: soft Genitourinary/Rectal: other - carpenter Extremities: trace edema Neurologic: unresponsive Hannah Johnson N.P. Jul 18, 2017 18:24
--- NOTE | 2017-07-18 19:38 | General Progress Note ---
Assessment/Plan Problem List: (1) DKA (diabetic ketoacidosis) ICD Codes: E13.10 - Other specified diabetes mellitus with ketoacidosis without coma SNOMED: 69208854, 997435025 Qualifiers: Qualified Codes: E10.11 - Type 1 diabetes mellitus with ketoacidosis with coma (2) Metabolic acidosis ICD Codes: E87.2 - Acidosis SNOMED: 18618662 (3) Cardiopulmonary arrest ICD Codes: I46.9 - Cardiac arrest, cause unspecified SNOMED: 795855722 Assessment/Plan continue Levemir 23 units bid continue NISS Subjective ROS Limited/Unobtainable: Yes Allergies: Coded Allergies: No Known Allergies (Unverified , 06/15/17) Subjective events noted - interval notes reviewed Objective Last 24 Hour Vital Signs Date Time Temp Pulse Resp B/P (MAP) Pulse Ox O2 Delivery O2 Flow Rate FiO2 07/18/17 16:27 109 07/18/17 15:56 98.2 93 20 132/77 100 Nasal Cannula 3.0 07/18/17 12:00 98.1 105 20 142/87 100 Nasal Cannula 3.0 07/18/17 11:47 99 07/18/17 08:59 96 07/18/17 08:58 129/87 07/18/17 08:00 97.7 105 20 142/87 100 Nasal Cannula 3.0 07/18/17 04:00 98.4 95 24 133/84 99 Nasal Cannula 3.0 07/18/17 04:00 95 07/18/17 00:00 98.2 110 26 146/89 99 Nasal Cannula 3.0 07/18/17 00:00 118 07/17/17 20:00 98.2 116 24 148/112 98 Nasal Cannula 3.0 07/17/17 20:00 148/112 07/17/17 20:00 110 Intake and Output 07/17/17 07/18/17 19:00 07:00 Intake Total 1205 ml 1865 ml Output Total 1075 ml 385 ml Balance 130 ml 1480 ml Free Water 200 ml 200 ml IV Total 675 ml 1005 ml Tube Feeding 330 ml 660 ml Output Urine Total 1075 ml 385 ml Laboratory Tests 07/18/17 03:35: White Blood Count 9.4, Red Blood Count 2.70L, Hemoglobin 8.7L, Hematocrit 26.2L , Mean Corpuscular Volume 97, Mean Corpuscular Hemoglobin 32.3H, Mean Corpuscular Hemoglobin Concent 33.3, Red Cell Distribution Width 11.7, Platelet Count 380, Mean Platelet Volume 7.7, Neutrophils (%) (Auto) 71.7, Lymphocytes (% ) (Auto) 14.2L, Monocytes (%) (Auto) 11.0H, Eosinophils (%) (Auto) 1.7, Basophils (%) (Auto) 1.4, Sodium Level 136, Potassium Level 4.6, Chloride Level 100, Carbon Dioxide Level 29, Anion Gap 7, Blood Urea Nitrogen 15, Creatinine 0.6, Estimat Glomerular Filtration Rate > 60, Glucose Level 249H, Calcium Level 9.1 Height (Feet): 5 Height (Inches): 6.00 Weight (Pounds): 120 Neck: normal alignment Cardiovascular: normal rate Respiratory/Chest: lungs clear Pelvis: normal external exam Edema: no edema noted Arm (L), no edema noted Arm (R), no edema noted Leg (L), no edema noted Leg (R), no edema noted Pedal (L), no edema noted Pedal (R), no edema noted Generalized Objective Current Medications Medications (Trade) Dose Ordered Sig/Conrado Route PRN Reason Start Time Stop Time Status Last Admin Dose Admin Acetaminophen (Tylenol) 500 mg Q6HR PRN NG Mild Pain/Temp > 100.5 07/01/17 02:45 07/31/17 02:44 07/08/17 20:09 Ceftazidime 1 gm/ Sodium Chloride 55 ml @ 110 mls/hr Q8HR IV 07/11/17 22:00 07/18/17 22:15 07/18/17 14:20 Clonidine HCl (Catapres Tab) 0.1 mg Q2H PRN NG For High Blood Pressure 07/10/17 16:00 08/09/17 15:59 Collagenase (Santyl) 1 applic DAILY TOPIC 07/13/17 15:00 08/12/17 14:59 07/18/17 09:08 Dextrose (Dextrose 50%) STAT PRN IV Hypoglycemia 07/01/17 22:30 07/29/17 22:29 07/12/17 03:56 Dextrose/ Electrolytes 1,000 ml @ 75 mls/hr [id number] IV 07/08/17 15:00 08/07/17 14:59 2/7/18 14:00 Insulin Aspart (NovoLOG) Q6HR SUBQ 07/16/17 06:00 08/05/17 19:29 07/18/17 17:16 Insulin Detemir (Levemir) 23 units Q12HR SUBQ 07/16/17 21:00 08/15/17 20:59 07/18/17 09:08 Losartan Potassium (Cozaar) 50 mg EVERY 12 HOURS NG 07/07/17 21:00 08/06/17 20:59 07/18/17 08:58 Item Value Date Time Bedside Blood Glucose 123 mg/dl H 07/18/17 1716 Bedside Blood Glucose 195 mg/dl H 07/18/17 1141 Bedside Blood Glucose 180 mg/dl H 07/18/17 0908 Bedside Blood Glucose 144 mg/dl H 07/18/17 0504 Bedside Blood Glucose 206 mg/dl H 07/18/17 0103 JADIEL MARCANO Jul 18, 2017 19:37
[2017-07-18 20:00] VITALS: BP 118/77
[2017-07-19] VITALS: BP 142/88
[2017-07-19] MEDS: NovoLOG Insulin Flexpen SUBQ SCH ×4 (00:07→17:17)
[2017-07-19] MEDS: D5W w/KCl 20mEq 1,000 ML IV SCH ×2 (01:20→15:36)
[2017-07-19 04:00] VITALS: BP 141/76
[2017-07-19 07:06] LABS: ANION GAP 6 mmol/L (5-15); BLOOD UREA NITROGEN 17 mg/dL (7-18); CALCIUM 9.3 MG/DL (8.5-10.1); CARBON DIOXIDE 31 MMOL/L (21-32); CHLORIDE 101 MMOL/L (98-107); CREATININE 0.6 MG/DL (0.55-1.30); POTASSIUM 3.8 MMOL/L (3.5-5.1); SODIUM 137 MMOL/L (136-145)
[2017-07-19 07:12] LABS: BASOPHILS % (AUTO) 1.1 % (0.0-2.0); EOSINOPHILS % (AUTO) 2.6 % (0.0-3.0); HEMATOCRIT 23.5 % (42.0-52.0); HEMOGLOBIN 8.2 G/DL (14.2-18.0); LYMPHOCYTES % (AUTO) 17.4 % (20.0-45.0); MEAN CORPUSCULAR VOLUME 96 FL (80-99); MONOCYTES % (AUTO) 10.2 % (1.0-10.0); NEUTROPHILS % (AUTO) 68.7 % (45.0-75.0); PLATELET COUNT 350 K/UL (150-450); RED BLOOD COUNT 2.44 M/UL (4.70-6.10); RED CELL DISTRIBUTION WIDTH 11.4 % (11.6-14.8); WHITE BLOOD COUNT 6.3 K/UL (4.8-10.8)
[2017-07-19 08:00] VITALS: BP 141/89
[2017-07-19] MEDS: Losartan 50mg tab NG SCH ×2 (08:40→20:46)
[2017-07-19] MEDS: Levemir Flexpen SUBQ SCH ×2 (08:45→20:48)
--- NOTE | 2017-07-19 09:59 | Pulmonology Progress Note ---
Assessment/Plan Assessment/Plan IMPRESSION: 1. Respiratory failure; extubated 2. Cannabis usage. 3. Diabetic ketoacidosis. 4. Troponin leak. 5. Tachycardia. 6. Anoxic brain injury DISCUSSION: Continue present management and care. now extubated Poor prognosis Remains on supplemental O2; now with lower FiO2; on 4L/min ABG adequate Continue oral airway/suctioning CXR clear Subjective Interval Events: None Constitutional: Reports: no symptoms HEENT: Repors: no symptoms Respiratory: Reports: no symptoms Cardiovascular: Reports: no symptoms Gastrointestinal/Abdominal: Reports: no symptoms Allergies: Coded Allergies: No Known Allergies (Unverified , 06/15/17) Objective Last 24 Hour Vital Signs Date Time Temp Pulse Resp B/P (MAP) Pulse Ox O2 Delivery O2 Flow Rate FiO2 07/19/17 08:40 141/89 07/19/17 08:00 98.4 111 18 141/89 100 Nasal Cannula 3.0 07/19/17 08:00 111 07/19/17 04:00 98.1 109 19 141/76 100 Nasal Cannula 3.0 07/19/17 04:00 103 07/19/17 00:00 97.5 116 20 142/88 100 Nasal Cannula 3.0 07/19/17 00:00 121 07/18/17 21:00 118/77 07/18/17 20:20 118/77 07/18/17 20:00 99 07/18/17 20:00 98.2 90 20 118/77 100 Nasal Cannula 3.0 07/18/17 16:27 109 07/18/17 15:56 98.2 93 20 132/77 100 Nasal Cannula 3.0 07/18/17 12:00 98.1 105 20 142/87 100 Nasal Cannula 3.0 07/18/17 11:47 99 Intake and Output 07/18/17 07/19/17 19:00 07:00 Intake Total 1800 ml 1635 ml Output Total 670 ml 440 ml Balance 1130 ml 1195 ml Free Water 200 ml 100 ml IV Total 880 ml 875 ml Tube Feeding 660 ml 660 ml Other 60 ml Output Urine Total 650 ml 440 ml Stool Total 20 ml General Appearance: no acute distress HEENT: normocephalic Respiratory/Chest: chest wall non-tender, lungs clear Cardiovascular: normal peripheral pulses, normal rate Abdomen: normal bowel sounds Laboratory Tests 07/19/17 06:10: White Blood Count 6.3, Red Blood Count 2.44L, Hemoglobin 8.2L, Hematocrit 23.5L , Mean Corpuscular Volume 96, Mean Corpuscular Hemoglobin 33.5H, Mean Corpuscular Hemoglobin Concent 34.9, Red Cell Distribution Width 11.4L, Platelet Count 350, Mean Platelet Volume 7.9, Neutrophils (%) (Auto) 68.7, Lymphocytes (%) (Auto) 17.4L, Monocytes (%) (Auto) 10.2H, Eosinophils (%) (Auto ) 2.6, Basophils (%) (Auto) 1.1, Sodium Level 137, Potassium Level 3.8, Chloride Level 101, Carbon Dioxide Level 31, Anion Gap 6, Blood Urea Nitrogen 17 , Creatinine 0.6, Estimat Glomerular Filtration Rate > 60, Glucose Level 205H, Calcium Level 9.3 Current Medications Medications (Trade) Dose Ordered Sig/Conrado Route PRN Reason Start Time Stop Time Status Last Admin Dose Admin Acetaminophen (Tylenol) 500 mg Q6HR PRN NG Mild Pain/Temp > 100.5 07/01/17 02:45 07/31/17 02:44 07/08/17 20:09 Clonidine HCl (Catapres Tab) 0.1 mg Q2H PRN NG For High Blood Pressure 07/10/17 16:00 08/09/17 15:59 Collagenase (Santyl) 1 applic DAILY TOPIC 07/13/17 15:00 08/12/17 14:59 07/19/17 09:15 Dextrose (Dextrose 50%) STAT PRN IV Hypoglycemia 07/01/17 22:30 07/29/17 22:29 07/12/17 03:56 Dextrose/ Electrolytes 1,000 ml @ 75 mls/hr [id number] IV 07/08/17 15:00 08/07/17 14:59 07/19/17 01:20 Insulin Aspart (NovoLOG) Q6HR SUBQ 07/16/17 06:00 08/05/17 19:29 07/19/17 05:06 Insulin Detemir (Levemir) 23 units Q12HR SUBQ 07/16/17 21:00 08/15/17 20:59 07/19/17 08:45 Losartan Potassium (Cozaar) 50 mg EVERY 12 HOURS NG 07/18/17 21:00 08/17/17 20:59 07/19/17 08:40 Paulo Floyd MD Jul 19, 2017 09:59
--- NOTE | 2017-07-19 11:17 | Cardiac Electrophysiology PN ---
Assessment/Plan Assessment/Plan 1. Troponin leak due to renal failure. EF 60%. 2. Tachycardia due to DKA and sepsis.Resolved 3. S/P Respiratory failure with Terminal extubation. On oxygen. 4. Pneumonia on abx per Dr. Cummings 5. Pancreatitis. 6. ARF.Resolved 7. Marijuana use. 8. Suspect diffuse cerebral anoxia and edema with decorticate rigidity per Dr Cano. 9. Alcohol withdrawal. 10. Severe Hypernatremia. Na 165, improved to 139 11. Full code. 12. Dysphagia.S/P PEG 13. DNR, DNI DW RN Subjective Subjective On MARIE in Sinus Rhythm. PEG feeding ongoing Objective Last 24 Hour Vital Signs Date Time Temp Pulse Resp B/P (MAP) Pulse Ox O2 Delivery O2 Flow Rate FiO2 07/19/17 08:40 141/89 07/19/17 08:00 98.4 111 18 141/89 100 Nasal Cannula 3.0 07/19/17 08:00 111 07/19/17 04:00 98.1 109 19 141/76 100 Nasal Cannula 3.0 07/19/17 04:00 103 07/19/17 00:00 97.5 116 20 142/88 100 Nasal Cannula 3.0 07/19/17 00:00 121 07/18/17 21:00 118/77 07/18/17 20:20 118/77 07/18/17 20:00 99 07/18/17 20:00 98.2 90 20 118/77 100 Nasal Cannula 3.0 07/18/17 16:27 109 07/18/17 15:56 98.2 93 20 132/77 100 Nasal Cannula 3.0 07/18/17 12:00 98.1 105 20 142/87 100 Nasal Cannula 3.0 07/18/17 11:47 99 Intake and Output 07/18/17 07/19/17 19:00 07:00 Intake Total 1800 ml 1635 ml Output Total 670 ml 440 ml Balance 1130 ml 1195 ml Free Water 200 ml 100 ml IV Total 880 ml 875 ml Tube Feeding 660 ml 660 ml Other 60 ml Output Urine Total 650 ml 440 ml Stool Total 20 ml Laboratory Tests Test 07/19/17 06:10 White Blood Count 6.3 K/UL (4.8-10.8) Red Blood Count 2.44 M/UL (4.70-6.10) L Hemoglobin 8.2 G/DL (14.2-18.0) L Hematocrit 23.5 % (42.0-52.0) L Mean Corpuscular Volume 96 FL (80-99) Mean Corpuscular Hemoglobin 33.5 PG (27.0-31.0) H Mean Corpuscular Hemoglobin Concent 34.9 G/DL (32.0-36.0) Red Cell Distribution Width 11.4 % (11.6-14.8) L Platelet Count 350 K/UL (150-450) Mean Platelet Volume 7.9 FL (6.5-10.1) Neutrophils (%) (Auto) 68.7 % (45.0-75.0) Lymphocytes (%) (Auto) 17.4 % (20.0-45.0) L Monocytes (%) (Auto) 10.2 % (1.0-10.0) H Eosinophils (%) (Auto) 2.6 % (0.0-3.0) Basophils (%) (Auto) 1.1 % (0.0-2.0) Sodium Level 137 MMOL/L (136-145) Potassium Level 3.8 MMOL/L (3.5-5.1) Chloride Level 101 MMOL/L (98-107) Carbon Dioxide Level 31 MMOL/L (21-32) Anion Gap 6 mmol/L (5-15) Blood Urea Nitrogen 17 mg/dL (7-18) Creatinine 0.6 MG/DL (0.55-1.30) Estimat Glomerular Filtration Rate > 60 mL/min (>60) Glucose Level 205 MG/DL (74-106) H Calcium Level 9.3 MG/DL (8.5-10.1) Objective HEAD AND NECK: No JVD. LUNGS: Clear. CARDIOVASCULAR: Regular S1 and S2 with no gallop or murmur. ABDOMEN: PEG in place EXTREMITIES: No pitting edema. ALBERT ROWAN Jul 19, 2017 11:17
[2017-07-19 12:00] VITALS: BP 131/86
--- NOTE | 2017-07-19 12:56 | GI Progress Note ---
Assessment/Plan Problems: (1) Shock liver ICD Codes: K72.00 - Acute and subacute hepatic failure without coma SNOMED: 643619560 (2) Anoxic cerebral edema ICD Codes: G93.6 - Cerebral edema; R09.02 - Hypoxemia SNOMED: 3029506, 349359760 (3) Transaminitis ICD Codes: R74.0 - Nonspecific elevation of levels of transaminase and lactic acid dehydrogenase [LDH] SNOMED: 157355196, 534058344 (4) Alcohol withdrawal ICD Codes: F10.239 - Alcohol dependence with withdrawal, unspecified SNOMED: 440907523 (5) Pancreatitis ICD Codes: K85.90 - Acute pancreatitis without necrosis or infection, unspecified SNOMED: 84897886 Status: unchanged Status Narrative Discussed with Dr. Rico. Assessment/Plan s/p PEG GTFs per RD electrolyte correction fu labs dc planning Subjective Subjective limited Objective Last 24 Hour Vital Signs Date Time Temp Pulse Resp B/P (MAP) Pulse Ox O2 Delivery O2 Flow Rate FiO2 07/19/17 12:00 98.0 106 19 131/86 99 Nasal Cannula 3.0 07/19/17 11:39 92 07/19/17 08:40 141/89 07/19/17 08:00 98.4 111 18 141/89 100 Nasal Cannula 3.0 07/19/17 08:00 111 07/19/17 04:00 98.1 109 19 141/76 100 Nasal Cannula 3.0 07/19/17 04:00 103 07/19/17 00:00 97.5 116 20 142/88 100 Nasal Cannula 3.0 07/19/17 00:00 121 07/18/17 21:00 118/77 07/18/17 20:20 118/77 07/18/17 20:00 99 07/18/17 20:00 98.2 90 20 118/77 100 Nasal Cannula 3.0 07/18/17 16:27 109 07/18/17 15:56 98.2 93 20 132/77 100 Nasal Cannula 3.0 Intake and Output 07/18/17 07/19/17 19:00 07:00 Intake Total 1800 ml 1635 ml Output Total 670 ml 440 ml Balance 1130 ml 1195 ml Free Water 200 ml 100 ml IV Total 880 ml 875 ml Tube Feeding 660 ml 660 ml Other 60 ml Output Urine Total 650 ml 440 ml Stool Total 20 ml Laboratory Tests Test 07/19/17 06:10 White Blood Count 6.3 K/UL (4.8-10.8) Red Blood Count 2.44 M/UL (4.70-6.10) L Hemoglobin 8.2 G/DL (14.2-18.0) L Hematocrit 23.5 % (42.0-52.0) L Mean Corpuscular Volume 96 FL (80-99) Mean Corpuscular Hemoglobin 33.5 PG (27.0-31.0) H Mean Corpuscular Hemoglobin Concent 34.9 G/DL (32.0-36.0) Red Cell Distribution Width 11.4 % (11.6-14.8) L Platelet Count 350 K/UL (150-450) Mean Platelet Volume 7.9 FL (6.5-10.1) Neutrophils (%) (Auto) 68.7 % (45.0-75.0) Lymphocytes (%) (Auto) 17.4 % (20.0-45.0) L Monocytes (%) (Auto) 10.2 % (1.0-10.0) H Eosinophils (%) (Auto) 2.6 % (0.0-3.0) Basophils (%) (Auto) 1.1 % (0.0-2.0) Sodium Level 137 MMOL/L (136-145) Potassium Level 3.8 MMOL/L (3.5-5.1) Chloride Level 101 MMOL/L (98-107) Carbon Dioxide Level 31 MMOL/L (21-32) Anion Gap 6 mmol/L (5-15) Blood Urea Nitrogen 17 mg/dL (7-18) Creatinine 0.6 MG/DL (0.55-1.30) Estimat Glomerular Filtration Rate > 60 mL/min (>60) Glucose Level 205 MG/DL (74-106) H Calcium Level 9.3 MG/DL (8.5-10.1) Height (Feet): 5 Height (Inches): 6.00 Weight (Pounds): 120 General Appearance: no apparent distress, cachetic, other - comatose Cardiovascular: normal rate Respiratory/Chest: no respiratory distress, other - NC Abdominal Exam: normal bowel sounds, non tender, soft, GT site - c/d/i Extremities: non-tender Mason,Lashawn Stanton N.P. Jul 19, 2017 12:56
[2017-07-19 16:00] VITALS: BP 131/87
--- NOTE | 2017-07-19 16:46 | Infectious Diseases Prog Note ---
Assessment/Plan Problems: (1) Pneumonia Assessment & Plan: with Acinetobacter baumannii , on ceftazidime for two weeks to finish his course of treatment , EOT 07/18/16, monitor CXR. continue aspiration precaution and suctioning to avoid further aspiration , may benefit from tracheostomy (2) Pancreatitis Assessment & Plan: improved , monitor lipase, GI is following, restarted on tube feeding. (3) Cardiopulmonary arrest Assessment & Plan: was extubated from mechanical ventilation , as per family request and made DNR and started on morphin drip, but family changed his code status to full code , he is on tele monitor , cardiology is following , may need tracheostomy , had PEG placement . (4) Anoxic cerebral edema Assessment & Plan: with no improvement, has poor prognosis , no tracheostomy , or PEG tube placement as per family , now full code as per family request , but postural and spastic and unresponsive . (5) Dysphagia Assessment & Plan: he received permanent tube feeding for nutritional support , family wants to proceed with full support Assessment/Plan discussed with parents at the bedside Subjective ROS Limited/Unobtainable: Yes Allergies: Coded Allergies: No Known Allergies (Unverified , 06/15/17) Subjective he is still unresponsive , on high flow oxygen , in MARIE , postural and spastic in the lower extremities , doesn't follow commands , afebrile .opens eyes spontaneously on/off . doesn't track. had permanent PEG tube placed Objective Vital Signs Last 24 Hour Vital Signs Date Time Temp Pulse Resp B/P (MAP) Pulse Ox O2 Delivery O2 Flow Rate FiO2 07/19/17 15:53 77 07/19/17 14:09 98 Nasal Cannula 3.0 32 07/19/17 14:09 Nasal Cannula 3.0 32 07/19/17 12:00 98.0 106 19 131/86 99 Nasal Cannula 3.0 07/19/17 11:39 92 07/19/17 08:40 141/89 07/19/17 08:00 98.4 111 18 141/89 100 Nasal Cannula 3.0 07/19/17 08:00 111 07/19/17 04:00 98.1 109 19 141/76 100 Nasal Cannula 3.0 07/19/17 04:00 103 07/19/17 00:00 97.5 116 20 142/88 100 Nasal Cannula 3.0 07/19/17 00:00 121 07/18/17 21:00 118/77 07/18/17 20:20 118/77 07/18/17 20:00 99 07/18/17 20:00 98.2 90 20 100 Nasal Cannula 3.0 Height (Feet): 5 Height (Inches): 6.00 Weight (Pounds): 120 General Appearance: WD/WN, no acute distress HEENT: normocephalic, atraumatic, anicteric, mucous membranes moist Respiratory/Chest: chest wall non-tender, lungs clear, normal breath sounds, no respiratory distress, no accessory muscle use Cardiovascular: normal peripheral pulses, normal rate, regular rhythm, no gallop/murmur, no JVD Abdomen: normal bowel sounds, soft, non tender, no organomegaly, non distended , no mass, no scars Extremities: no cyanosis, no clubbing Skin: no rash, no lesions, no ulcers Neurologic/Psychiatric: alert, oriented x 3 Laboratory Tests Test 07/19/17 06:10 White Blood Count 6.3 K/UL (4.8-10.8) Red Blood Count 2.44 M/UL (4.70-6.10) L Hemoglobin 8.2 G/DL (14.2-18.0) L Hematocrit 23.5 % (42.0-52.0) L Mean Corpuscular Volume 96 FL (80-99) Mean Corpuscular Hemoglobin 33.5 PG (27.0-31.0) H Mean Corpuscular Hemoglobin Concent 34.9 G/DL (32.0-36.0) Red Cell Distribution Width 11.4 % (11.6-14.8) L Platelet Count 350 K/UL (150-450) Mean Platelet Volume 7.9 FL (6.5-10.1) Neutrophils (%) (Auto) 68.7 % (45.0-75.0) Lymphocytes (%) (Auto) 17.4 % (20.0-45.0) L Monocytes (%) (Auto) 10.2 % (1.0-10.0) H Eosinophils (%) (Auto) 2.6 % (0.0-3.0) Basophils (%) (Auto) 1.1 % (0.0-2.0) Sodium Level 137 MMOL/L (136-145) Potassium Level 3.8 MMOL/L (3.5-5.1) Chloride Level 101 MMOL/L (98-107) Carbon Dioxide Level 31 MMOL/L (21-32) Anion Gap 6 mmol/L (5-15) Blood Urea Nitrogen 17 mg/dL (7-18) Creatinine 0.6 MG/DL (0.55-1.30) Estimat Glomerular Filtration Rate > 60 mL/min (>60) Glucose Level 205 MG/DL (74-106) H Calcium Level 9.3 MG/DL (8.5-10.1) Current Medications Medications (Trade) Dose Ordered Sig/Conrado Route PRN Reason Start Time Stop Time Status Last Admin Dose Admin Acetaminophen (Tylenol) 500 mg Q6HR PRN NG Mild Pain/Temp > 100.5 07/01/17 02:45 07/31/17 02:44 07/08/17 20:09 Clonidine HCl (Catapres Tab) 0.1 mg Q2H PRN NG For High Blood Pressure 07/10/17 16:00 08/09/17 15:59 Collagenase (Santyl) 1 applic BEDTIME TOPIC 07/19/17 21:00 08/12/17 14:59 Dextrose (Dextrose 50%) STAT PRN IV Hypoglycemia 07/01/17 22:30 07/29/17 22:29 07/12/17 03:56 Dextrose/ Electrolytes 1,000 ml @ 75 mls/hr [id number] IV 07/08/17 15:00 08/07/17 14:59 07/19/17 15:36 Insulin Aspart (NovoLOG) Q6HR SUBQ 07/16/17 06:00 08/05/17 19:29 07/19/17 11:18 Insulin Detemir (Levemir) 23 units Q12HR SUBQ 07/16/17 21:00 08/15/17 20:59 07/19/17 08:45 Losartan Potassium (Cozaar) 50 mg EVERY 12 HOURS NG 07/18/17 21:00 08/17/17 20:59 07/19/17 08:40 Saad Cummings M.D. Jul 19, 2017 16:46
[2017-07-19] MEDS ORDERED: Sterile Water Irrig 1000ml IRRIG ONE (19:35)
[2017-07-19] MEDS ORDERED: NS 275ml ONE (19:35)
[2017-07-19] MEDS ORDERED: Tubing IV Secondary IV ONE (19:35)
[2017-07-19 20:00] VITALS: BP 134/94
[2017-07-20] VITALS: BP 120/80
[2017-07-20] MEDS: NovoLOG Insulin Flexpen SUBQ SCH ×5 (00:26→23:50)
[2017-07-20 04:00] VITALS: BP 125/80
[2017-07-20] MEDS: D5W w/KCl 20mEq 1,000 ML IV SCH ×2 (07:53→20:37)
[2017-07-20 08:00] VITALS: BP 127/91
[2017-07-20] MEDS: Losartan 50mg tab NG SCH (09:31)
[2017-07-20] MEDS: Levemir Flexpen SUBQ SCH ×2 (09:37→21:35)
--- NOTE | 2017-07-20 10:27 | Pulmonology Progress Note ---
Assessment/Plan Assessment/Plan IMPRESSION: 1. Respiratory failure; extubated 2. Cannabis usage. 3. Diabetic ketoacidosis. 4. Troponin leak. 5. Tachycardia. 6. Anoxic brain injury DISCUSSION: Continue present management and care. now extubated Poor prognosis Remains on supplemental O2; now with lower FiO2; on 4L/min ABG adequate Continue oral airway/suctioning CXR clear Subjective Interval Events: None Constitutional: Reports: no symptoms HEENT: Repors: no symptoms Respiratory: Reports: no symptoms Cardiovascular: Reports: no symptoms Gastrointestinal/Abdominal: Reports: no symptoms Allergies: Coded Allergies: No Known Allergies (Unverified , 06/15/17) Objective Last 24 Hour Vital Signs Date Time Temp Pulse Resp B/P (MAP) Pulse Ox O2 Delivery O2 Flow Rate FiO2 07/20/17 09:31 127/91 07/20/17 09:08 Nasal Cannula 3.0 32 07/20/17 09:07 97 Nasal Cannula 3.0 32 07/20/17 08:00 98.7 108 19 127/91 100 Nasal Cannula 3.0 07/20/17 04:00 97.9 100 20 125/80 99 Nasal Cannula 3.0 07/20/17 04:00 103 07/20/17 00:00 94 07/20/17 00:00 98.2 100 22 120/80 99 Nasal Cannula 3.0 07/19/17 20:46 143/95 07/19/17 20:06 Nasal Cannula 3.0 32 07/19/17 20:06 99 Nasal Cannula 3.0 32 07/19/17 20:00 87 07/19/17 20:00 98.1 107 24 134/94 100 Nasal Cannula 3.0 07/19/17 16:00 98.3 103 23 131/87 100 Nasal Cannula 3.0 07/19/17 15:53 77 07/19/17 14:09 98 Nasal Cannula 3.0 32 07/19/17 14:09 Nasal Cannula 3.0 32 07/19/17 12:00 98.0 106 19 131/86 99 Nasal Cannula 3.0 07/19/17 11:39 92 Intake and Output 07/19/17 07/20/17 19:00 07:00 Intake Total 1700 ml 1610 ml Output Total 700 ml 800 ml Balance 1000 ml 810 ml Free Water 200 ml IV Total 780 ml 750 ml Tube Feeding 660 ml 660 ml Other 60 ml 200 ml Output Urine Total 700 ml 800 ml # Bowel Movements 2 General Appearance: no acute distress HEENT: normocephalic Respiratory/Chest: chest wall non-tender, lungs clear Cardiovascular: normal peripheral pulses, normal rate Abdomen: normal bowel sounds, soft, non tender Current Medications Medications (Trade) Dose Ordered Sig/Conrado Route PRN Reason Start Time Stop Time Status Last Admin Dose Admin Acetaminophen (Tylenol) 500 mg Q6HR PRN NG Mild Pain/Temp > 100.5 07/01/17 02:45 07/31/17 02:44 07/08/17 20:09 Clonidine HCl (Catapres Tab) 0.1 mg Q2H PRN NG For High Blood Pressure 07/10/17 16:00 08/09/17 15:59 Collagenase (Santyl) 1 applic BEDTIME TOPIC 07/19/17 21:00 08/12/17 14:59 07/19/17 20:46 Dextrose (Dextrose 50%) STAT PRN IV Hypoglycemia 07/01/17 22:30 07/29/17 22:29 07/12/17 03:56 Dextrose/ Electrolytes 1,000 ml @ 75 mls/hr [id number] IV 07/08/17 15:00 08/07/17 14:59 07/20/17 07:53 Insulin Aspart (NovoLOG) Q6HR SUBQ 07/16/17 06:00 08/05/17 19:29 07/20/17 05:26 Insulin Detemir (Levemir) 23 units Q12HR SUBQ 07/16/17 21:00 08/15/17 20:59 07/20/17 09:37 Losartan Potassium (Cozaar) 50 mg EVERY 12 HOURS NG 07/18/17 21:00 08/17/17 20:59 07/20/17 09:31 Paulo Floyd MD Jul 20, 2017 10:27
--- NOTE | 2017-07-20 11:34 | Cardiac Electrophysiology PN ---
Assessment/Plan Assessment/Plan 1. Troponin leak due to renal failure. EF 60%. 2. Tachycardia due to DKA and sepsis. Resolved 3. S/P Respiratory failure with Terminal extubation. On oxygen. 4. Pneumonia on abx per Dr. Cummings 5. Pancreatitis. 6. ARF.Resolved 7. Marijuana use. 8. Suspect diffuse cerebral anoxia and edema with decorticate rigidity per Dr Cano. 9. Alcohol withdrawal. 10. Severe Hypernatremia. Na 165, improved to 137 on 07/19/17 11. Full code. 12. Dysphagia.S/P PEG 13. DNR, DNI [address] DW RN Subjective Subjective On MARIE in Sinus Rhythm. PEG feeding ongoing. RN at bedside. Awaiting placement Objective Last 24 Hour Vital Signs Date Time Temp Pulse Resp B/P (MAP) Pulse Ox O2 Delivery O2 Flow Rate FiO2 07/20/17 09:31 127/91 07/20/17 09:08 Nasal Cannula 3.0 32 07/20/17 09:07 97 Nasal Cannula 3.0 32 07/20/17 08:00 98.7 108 19 127/91 100 Nasal Cannula 3.0 07/20/17 08:00 88 07/20/17 04:00 97.9 100 20 125/80 99 Nasal Cannula 3.0 07/20/17 04:00 103 07/20/17 00:00 94 07/20/17 00:00 98.2 100 22 120/80 99 Nasal Cannula 3.0 07/19/17 20:46 143/95 07/19/17 20:06 Nasal Cannula 3.0 32 07/19/17 20:06 99 Nasal Cannula 3.0 32 07/19/17 20:00 87 07/19/17 20:00 98.1 107 24 134/94 100 Nasal Cannula 3.0 07/19/17 16:00 98.3 103 23 131/87 100 Nasal Cannula 3.0 07/19/17 15:53 77 07/19/17 14:09 98 Nasal Cannula 3.0 32 07/19/17 14:09 Nasal Cannula 3.0 32 07/19/17 12:00 98.0 106 19 131/86 99 Nasal Cannula 3.0 07/19/17 11:39 92 Intake and Output 07/19/17 07/20/17 19:00 07:00 Intake Total 1700 ml 1610 ml Output Total 700 ml 800 ml Balance 1000 ml 810 ml Free Water 200 ml IV Total 780 ml 750 ml Tube Feeding 660 ml 660 ml Other 60 ml 200 ml Output Urine Total 700 ml 800 ml # Bowel Movements 2 Objective HEAD AND NECK: No JVD. LUNGS: Clear. CARDIOVASCULAR: Regular S1 and S2 with no gallop or murmur. ABDOMEN: PEG in place EXTREMITIES: No pitting edema. ALBERT ROWAN Jul 20, 2017 11:34
[2017-07-20 12:00] VITALS: BP 131/96
--- NOTE | 2017-07-20 12:27 | Nephrology Progress Note ---
Assessment/Plan Problem List: (1) Hyponatremia Assessment: resolved. (2) Sepsis Assessment: improving. (3) Alcohol withdrawal (4) Pneumonia Assessment: resolving. (5) Cardiopulmonary arrest (6) Metabolic acidosis Assessment: resolved. (7) DKA (diabetic ketoacidosis) Assessment: resolved. (8) Transaminitis (9) Hypokalemia (10) Hypernatremia Assessment: resolved. (11) Anoxic encephalopathy syndrome (12) Anoxic cerebral edema (13) Shock liver (14) Fever Assessment: resolved. (15) Respiratory distress (16) Pancreatitis Assessment: resolved (17) Elevated troponin Plan pulm following. FULL CODE. S/p PEG. Monitor off abx. cardio and neuro following. d/w RN. monitor labs. d/c planning - placement? Subjective Subjective late entry for 07/19 - Objective Objective Last 24 Hour Vital Signs Date Time Temp Pulse Resp B/P (MAP) Pulse Ox O2 Delivery O2 Flow Rate FiO2 07/20/17 12:00 97.9 116 20 131/96 100 Nasal Cannula 3.0 07/20/17 09:31 127/91 07/20/17 09:08 Nasal Cannula 3.0 32 07/20/17 09:07 97 Nasal Cannula 3.0 32 07/20/17 08:00 98.7 108 19 127/91 100 Nasal Cannula 3.0 07/20/17 08:00 88 07/20/17 04:00 97.9 100 20 125/80 99 Nasal Cannula 3.0 07/20/17 04:00 103 07/20/17 00:00 94 07/20/17 00:00 98.2 100 22 120/80 99 Nasal Cannula 3.0 07/19/17 20:46 143/95 07/19/17 20:06 Nasal Cannula 3.0 32 07/19/17 20:06 99 Nasal Cannula 3.0 32 07/19/17 20:00 87 07/19/17 20:00 98.1 107 24 134/94 100 Nasal Cannula 3.0 07/19/17 16:00 98.3 103 23 131/87 100 Nasal Cannula 3.0 07/19/17 15:53 77 07/19/17 14:09 98 Nasal Cannula 3.0 32 07/19/17 14:09 Nasal Cannula 3.0 32 Intake and Output 07/19/17 07/20/17 19:00 07:00 Intake Total 1700 ml 1610 ml Output Total 700 ml 800 ml Balance 1000 ml 810 ml Free Water 200 ml IV Total 780 ml 750 ml Tube Feeding 660 ml 660 ml Other 60 ml 200 ml Output Urine Total 700 ml 800 ml # Bowel Movements 2 Height (Feet): 5 Height (Inches): 6.00 Weight (Pounds): 120 General Appearance: no apparent distress Cardiovascular: normal rate, regular rhythm Respiratory/Chest: lungs clear Abdomen: non tender, soft Neurologic: unresponsive REMIGIO KNOX Jul 20, 2017 12:27
--- NOTE | 2017-07-20 13:00 | GI Progress Note ---
Assessment/Plan Problems: (1) Anoxic cerebral edema ICD Codes: G93.6 - Cerebral edema; R09.02 - Hypoxemia SNOMED: 4295738, 423718470 (2) Transaminitis ICD Codes: R74.0 - Nonspecific elevation of levels of transaminase and lactic acid dehydrogenase [LDH] SNOMED: 594151351, 967553533 (3) Alcohol withdrawal ICD Codes: F10.239 - Alcohol dependence with withdrawal, unspecified SNOMED: 121199841 (4) Pancreatitis ICD Codes: K85.90 - Acute pancreatitis without necrosis or infection, unspecified SNOMED: 58421715 Status: unchanged Status Narrative Discussed with Dr. Rico. Assessment/Plan s/p PEG GTFs per RD electrolyte correction fu labs dc planning Subjective Subjective limited Objective Last 24 Hour Vital Signs Date Time Temp Pulse Resp B/P (MAP) Pulse Ox O2 Delivery O2 Flow Rate FiO2 07/20/17 12:00 97.9 116 20 131/96 100 Nasal Cannula 3.0 07/20/17 11:39 108 07/20/17 09:31 127/91 07/20/17 09:08 Nasal Cannula 3.0 32 07/20/17 09:07 97 Nasal Cannula 3.0 32 07/20/17 08:00 98.7 108 19 127/91 100 Nasal Cannula 3.0 07/20/17 08:00 88 07/20/17 04:00 97.9 100 20 125/80 99 Nasal Cannula 3.0 07/20/17 04:00 103 07/20/17 00:00 94 07/20/17 00:00 98.2 100 22 120/80 99 Nasal Cannula 3.0 07/19/17 20:46 143/95 07/19/17 20:06 Nasal Cannula 3.0 32 07/19/17 20:06 99 Nasal Cannula 3.0 32 07/19/17 20:00 87 07/19/17 20:00 98.1 107 24 134/94 100 Nasal Cannula 3.0 07/19/17 16:00 98.3 103 23 131/87 100 Nasal Cannula 3.0 07/19/17 15:53 77 07/19/17 14:09 98 Nasal Cannula 3.0 32 07/19/17 14:09 Nasal Cannula 3.0 32 Intake and Output 07/19/17 07/20/17 19:00 07:00 Intake Total 1700 ml 1610 ml Output Total 700 ml 800 ml Balance 1000 ml 810 ml Free Water 200 ml IV Total 780 ml 750 ml Tube Feeding 660 ml 660 ml Other 60 ml 200 ml Output Urine Total 700 ml 800 ml # Bowel Movements 2 Height (Feet): 5 Height (Inches): 6.00 Weight (Pounds): 120 General Appearance: no apparent distress Cardiovascular: normal rate Respiratory/Chest: other - NC Abdominal Exam: GT site - c/d/i Lashawn Mason NAris Jul 20, 2017 13:00
[2017-07-20] MEDS ORDERED: Acetaminophen 650mg/20.3ml GT PRN (13:45)
--- NOTE | 2017-07-20 14:03 | Infectious Diseases Prog Note ---
Assessment/Plan Problems: (1) Pneumonia Assessment & Plan: with Acinetobacter baumannii , S/P ceftazidime for two weeks , improved , continue to monitor CXR. continue aspiration precaution and suctioning to avoid further aspiration , may benefit from tracheostomy (2) Pancreatitis Assessment & Plan: improved , monitor lipase, GI is following, restarted on tube feeding. (3) Cardiopulmonary arrest Assessment & Plan: was extubated from mechanical ventilation , as per family request and made DNR and started on morphin drip, but family changed his code status to full code , he is on tele monitor , cardiology is following , may need tracheostomy , had PEG placement . (4) Anoxic cerebral edema Assessment & Plan: with no improvement, has poor prognosis , no tracheostomy , or PEG tube placement as per family , now full code as per family request , but postural and spastic and unresponsive . (5) Dysphagia Assessment & Plan: he received permanent tube feeding for nutritional support , family wants to proceed with full support Subjective ROS Limited/Unobtainable: Yes Allergies: Coded Allergies: No Known Allergies (Unverified , 06/15/17) Subjective he is still unresponsive , on high flow oxygen , in MARIE , postural and spastic in the lower extremities , doesn't follow commands , afebrile .opens eyes spontaneously on/off . doesn't track. had permanent PEG tube placed Objective Vital Signs Last 24 Hour Vital Signs Date Time Temp Pulse Resp B/P (MAP) Pulse Ox O2 Delivery O2 Flow Rate FiO2 07/20/17 12:00 97.9 116 20 131/96 100 Nasal Cannula 3.0 07/20/17 11:39 108 07/20/17 09:31 127/91 07/20/17 09:08 Nasal Cannula 3.0 32 07/20/17 09:07 97 Nasal Cannula 3.0 32 07/20/17 08:00 98.7 108 19 127/91 100 Nasal Cannula 3.0 07/20/17 08:00 88 07/20/17 04:00 97.9 100 20 125/80 99 Nasal Cannula 3.0 07/20/17 04:00 103 07/20/17 00:00 94 07/20/17 00:00 98.2 100 22 120/80 99 Nasal Cannula 3.0 07/19/17 20:46 143/95 07/19/17 20:06 Nasal Cannula 3.0 32 07/19/17 20:06 99 Nasal Cannula 3.0 32 07/19/17 20:00 87 07/19/17 20:00 98.1 107 24 134/94 100 Nasal Cannula 3.0 07/19/17 16:00 98.3 103 23 131/87 100 Nasal Cannula 3.0 07/19/17 15:53 77 07/19/17 14:09 98 Nasal Cannula 3.0 32 07/19/17 14:09 Nasal Cannula 3.0 32 Height (Feet): 5 Height (Inches): 6.00 Weight (Pounds): 120 General Appearance: WD/WN, no acute distress, cachetic HEENT: normocephalic, atraumatic, anicteric, mucous membranes moist Respiratory/Chest: chest wall non-tender, lungs clear, no respiratory distress , no accessory muscle use, decreased breath sounds, crackles/rales Cardiovascular: normal peripheral pulses, normal rate, regular rhythm, no gallop/murmur, no JVD Abdomen: normal bowel sounds, soft, non tender, no organomegaly, non distended , no mass, no scars Extremities: no cyanosis, no clubbing Skin: no rash, no lesions, no ulcers Neurologic/Psychiatric: alert, unresponsiveness Current Medications Medications (Trade) Dose Ordered Sig/Conrado Route PRN Reason Start Time Stop Time Status Last Admin Dose Admin Acetaminophen (Tylenol) 500 mg Q6HR PRN GT Mild Pain/Temp > 100.5 07/20/17 13:45 08/19/17 13:44 UNV Clonidine HCl (Catapres Tab) 0.1 mg Q2H PRN GT For High Blood Pressure 07/20/17 14:00 08/19/17 13:59 UNV Collagenase (Santyl) 1 applic BEDTIME TOPIC 07/19/17 21:00 08/12/17 14:59 07/19/17 20:46 Dextrose (Dextrose 50%) STAT PRN IV Hypoglycemia 07/01/17 22:30 07/29/17 22:29 07/12/17 03:56 Dextrose/ Electrolytes 1,000 ml @ 75 mls/hr [id number] IV 07/08/17 15:00 08/07/17 14:59 07/20/17 07:53 Insulin Aspart (NovoLOG) Q6HR SUBQ 07/16/17 06:00 08/05/17 19:29 07/20/17 12:30 Insulin Detemir (Levemir) 23 units Q12HR SUBQ 07/16/17 21:00 08/15/17 20:59 07/20/17 09:37 Losartan Potassium (Cozaar) 50 mg EVERY 12 HOURS GT 07/20/17 21:00 08/19/17 20:59 Saad Al M.D. Jul 20, 2017 14:03
[2017-07-20 16:00] VITALS: BP 132/86
--- NOTE | 2017-07-20 16:55 | Nephrology Progress Note ---
Assessment/Plan Problem List: (1) Hypernatremia Assessment: Improved (2) Hypokalemia Assessment: corrected (3) Fever (4) Acidosis (5) Respiratory distress (6) Pancreatitis (7) Elevated troponin (8) Alcohol withdrawal (9) Pneumonia (10) Sepsis (11) Cardiopulmonary arrest (12) Metabolic acidosis (13) DKA (diabetic ketoacidosis) (14) Renal failure Assessment: Improved (15) DNR (do not resuscitate) Plan Continue current treatment plan D5W+KCL@ 75cc/hr Monitor temp Suspect diffuse cerebral anoxia and edema with decorticate rigidity per Dr Cano. Monitor lytes, correct prn Monitor neuro status, f/u with neurology rec G-tube feeding per GI Strict glycemic control Monitor renal function on current abx Abx per ID Monitor intake and output Continue carpenter AM labs DC plan Subjective ROS Limited/Unobtainable: Yes Subjective Seen in MARIE,unresponsive, eyes open Objective Objective Last 24 Hour Vital Signs Date Time Temp Pulse Resp B/P (MAP) Pulse Ox O2 Delivery O2 Flow Rate FiO2 07/20/17 12:00 97.9 116 20 131/96 100 Nasal Cannula 3.0 07/20/17 11:39 108 07/20/17 09:31 127/91 07/20/17 09:08 Nasal Cannula 3.0 32 07/20/17 09:07 97 Nasal Cannula 3.0 32 07/20/17 08:00 98.7 108 19 127/91 100 Nasal Cannula 3.0 07/20/17 08:00 88 07/20/17 04:00 97.9 100 20 125/80 99 Nasal Cannula 3.0 07/20/17 04:00 103 07/20/17 00:00 94 07/20/17 00:00 98.2 100 22 120/80 99 Nasal Cannula 3.0 07/19/17 20:46 143/95 07/19/17 20:06 Nasal Cannula 3.0 32 07/19/17 20:06 99 Nasal Cannula 3.0 32 07/19/17 20:00 87 07/19/17 20:00 98.1 107 24 134/94 100 Nasal Cannula 3.0 Intake and Output 07/19/17 07/20/17 19:00 07:00 Intake Total 1700 ml 1610 ml Output Total 700 ml 800 ml Balance 1000 ml 810 ml Free Water 200 ml IV Total 780 ml 750 ml Tube Feeding 660 ml 660 ml Other 60 ml 200 ml Output Urine Total 700 ml 800 ml # Bowel Movements 2 Height (Feet): 5 Height (Inches): 6.00 Weight (Pounds): 120 General Appearance: no apparent distress Neck: non-tender Cardiovascular: normal rate, no JVD Respiratory/Chest: decreased breath sounds Abdomen: soft, other - PEG tube noted Genitourinary/Rectal: other - carpenter Extremities: trace edema Neurologic: motor weakness, unresponsive Hannah Johnson N.P. Jul 20, 2017 16:55
--- NOTE | 2017-07-20 19:54 | Wound Care Consultation ---
Wound Assessment Wound Assessment : Wound Number: 1 Wound Present on Admission: No New Wound: Yes Status Change of Wound: No Wound Location Body Site Modif: left Wound Location Body Site: sacral Wound Type: pressure ulcer Clarissa Test: Does not Clarissa Pressure Ulcer Stage: Unstageable Wound Thickness: Full Thickness Wound Length: 5.0 Wound Width: 4.5 Wound Depth: utd Percent of Wound Bed Yellow/Wh: 100 Wound Drainage Description: Serosanguineous Wound Drainage Amount: Scant Wound Drainage Odor: None/Absent Tissue Surrounding Wound: Intact Wound General Appearance: Reddened - yellow, Draining Wound Comment #1 Left sacral area unstagable pressure ulcer. #2 Left upper back DTI pressure ulcer. Resolved. Intact scar tissue noted #3 Mid and right upper back scattered DTI pressure ulcer. Resolved. Intact scar tissue noted #4 Left tip of the big toe DTI pressure ulcer. Skin still intact #5 Right tip of the big toe DTI pressure ulcer. Skin still intact #6 Left heel DTI pressure ulcer. Skin still intact #7 Right heel DTI pressure ulcer. Skin still intact #8 Left ear DTI pressure ulcer. Skin still intact Reassessed this Pt. No deterioration noted. Will cont with Santyl ointment for unstageable pressure ulcer on sacral area and recommendations below -Keep clean and dry -Turn and reposition -Offload both heels -Optimize nutrition -Heel protector on both heels -Low air loss mattress -Assess and f/u accordingly for any changes SHIRA VALENTINE RN Jul 20, 2017 19:54
[2017-07-20 20:00] VITALS: BP 131/84
[2017-07-20] MEDS: Losartan 50mg tab GT SCH (20:40)
[2017-07-21] VITALS: BP 114/82
[2017-07-21 04:00] VITALS: BP 120/81
[2017-07-21] MEDS: NovoLOG Insulin Flexpen SUBQ SCH ×3 (06:17→17:41)
--- NOTE | 2017-07-21 06:30 | General Progress Note ---
Assessment/Plan Problem List: (1) DKA (diabetic ketoacidosis) ICD Codes: E13.10 - Other specified diabetes mellitus with ketoacidosis without coma SNOMED: 33940383, [id number] Qualifiers: Qualified Codes: E10.11 - Type 1 diabetes mellitus with ketoacidosis with coma (2) Metabolic acidosis ICD Codes: E87.2 - Acidosis SNOMED: 92574978 (3) Cardiopulmonary arrest ICD Codes: I46.9 - Cardiac arrest, cause unspecified SNOMED: 891972951 Assessment/Plan continue Levemir 23 units bid continue NISS Subjective ROS Limited/Unobtainable: Yes Allergies: Coded Allergies: No Known Allergies (Unverified , 06/15/17) Subjective events noted - interval notes reviewed on O2 mask TF tolerated Objective Last 24 Hour Vital Signs Date Time Temp Pulse Resp B/P (MAP) Pulse Ox O2 Delivery O2 Flow Rate FiO2 07/21/17 04:00 103 07/21/17 00:00 98.1 106 20 114/82 100 Nasal Cannula 3.0 07/21/17 00:00 100 07/20/17 20:40 132/86 07/20/17 20:00 93 07/20/17 20:00 98.4 100 20 131/84 100 Nasal Cannula 3.0 07/20/17 19:17 Nasal Cannula 3.0 32 07/20/17 19:17 98 Nasal Cannula 3.0 32 07/20/17 18:03 107 07/20/17 16:00 97.6 102 19 132/86 100 Nasal Cannula 3.0 07/20/17 12:00 97.9 116 20 131/96 100 Nasal Cannula 3.0 07/20/17 11:39 108 07/20/17 09:31 127/91 07/20/17 09:08 Nasal Cannula 3.0 32 07/20/17 09:07 97 Nasal Cannula 3.0 32 07/20/17 08:00 98.7 108 19 127/91 100 Nasal Cannula 3.0 07/20/17 08:00 88 Intake and Output 07/20/17 07/21/17 19:00 07:00 Intake Total 1575 ml 1745 ml Output Total 850 ml 600 ml Balance 725 ml 1145 ml Free Water 100 ml 260 ml IV Total 750 ml Tube Feeding 605 ml 660 ml Other 120 ml 825 ml Output Urine Total 850 ml 600 ml # Bowel Movements 2 Height (Feet): 5 Height (Inches): 6.00 Weight (Pounds): 120 General Appearance: no apparent distress Neck: normal alignment Cardiovascular: normal rate Respiratory/Chest: decreased breath sounds Pelvis: normal external exam Objective Current Medications Medications (Trade) Dose Ordered Sig/Conrado Route PRN Reason Start Time Stop Time Status Last Admin Dose Admin Acetaminophen (Tylenol) 500 mg Q6HR PRN GT Mild Pain/Temp > 100.5 07/20/17 13:45 08/19/17 13:44 Clonidine HCl (Catapres Tab) 0.1 mg Q2H PRN GT For High Blood Pressure 07/20/17 14:00 08/19/17 13:59 Collagenase (Santyl) 1 applic BEDTIME TOPIC 07/19/17 21:00 08/12/17 14:59 07/20/17 20:42 Dextrose (Dextrose 50%) STAT PRN IV Hypoglycemia 07/01/17 22:30 07/29/17 22:29 07/12/17 03:56 Dextrose/ Electrolytes 1,000 ml @ 75 mls/hr [id number] IV 07/08/17 15:00 08/07/17 14:59 07/20/17 20:37 Insulin Aspart (NovoLOG) Q6HR SUBQ 07/16/17 06:00 08/05/17 19:29 07/21/17 06:17 Insulin Detemir (Levemir) 23 units Q12HR SUBQ 07/16/17 21:00 08/15/17 20:59 07/20/17 21:35 Losartan Potassium (Cozaar) 50 mg EVERY 12 HOURS GT 07/20/17 21:00 08/19/17 20:59 07/20/17 20:40 Item Value Date Time Bedside Blood Glucose 157 mg/dl H 07/21/17 0617 Bedside Blood Glucose 192 mg/dl H 07/21/17 0000 Bedside Blood Glucose 173 mg/dl H 07/20/17 2135 Bedside Blood Glucose 208 mg/dl H 07/20/17 1813 Bedside Blood Glucose 236 mg/dl H 07/20/17 1232 JADIEL MARCANO Jul 21, 2017 06:30
[2017-07-21 08:00] VITALS: BP 123/86
[2017-07-21] MEDS: Losartan 50mg tab GT SCH ×2 (08:42→20:50)
[2017-07-21] MEDS: D5W w/KCl 20mEq 1,000 ML IV SCH ×2 (08:43→22:54)
[2017-07-21] MEDS: Levemir Flexpen SUBQ SCH ×2 (08:44→20:52)
--- NOTE | 2017-07-21 10:15 | Pulmonology Progress Note ---
Assessment/Plan Assessment/Plan IMPRESSION: 1. Respiratory failure; extubated 2. Cannabis usage. 3. Diabetic ketoacidosis. 4. Troponin leak. 5. Tachycardia. 6. Anoxic brain injury DISCUSSION: Continue present management and care. now extubated Poor prognosis Remains on supplemental O2; now with lower FiO2; on 2-4L/min ABG adequate Continue oral airway/suctioning CXR clear Subjective Interval Events: SDaturating well on nasal canulae Constitutional: Reports: no symptoms HEENT: Repors: no symptoms Respiratory: Reports: no symptoms Cardiovascular: Reports: no symptoms Allergies: Coded Allergies: No Known Allergies (Unverified , 06/15/17) Objective Last 24 Hour Vital Signs Date Time Temp Pulse Resp B/P (MAP) Pulse Ox O2 Delivery O2 Flow Rate FiO2 07/21/17 09:09 99 Nasal Cannula 3.0 32 07/21/17 09:09 Nasal Cannula 3.0 32 07/21/17 08:42 123/86 07/21/17 08:00 98.1 102 18 123/86 100 Nasal Cannula 3.0 07/21/17 07:54 96 07/21/17 04:00 98.2 85 20 120/81 100 Nasal Cannula 3.0 07/21/17 04:00 103 07/21/17 00:00 98.1 106 20 114/82 100 Nasal Cannula 3.0 07/21/17 00:00 100 07/20/17 20:40 132/86 07/20/17 20:00 93 07/20/17 20:00 98.4 100 20 131/84 100 Nasal Cannula 3.0 07/20/17 19:17 Nasal Cannula 3.0 32 07/20/17 19:17 98 Nasal Cannula 3.0 32 07/20/17 18:03 107 07/20/17 16:00 97.6 102 19 132/86 100 Nasal Cannula 3.0 07/20/17 12:00 97.9 116 20 131/96 100 Nasal Cannula 3.0 07/20/17 11:39 108 Intake and Output 07/20/17 07/21/17 19:00 07:00 Intake Total 1575 ml 1930 ml Output Total 850 ml 600 ml Balance 725 ml 1330 ml Free Water 100 ml 260 ml IV Total 750 ml Tube Feeding 605 ml 770 ml Other 120 ml 900 ml Output Urine Total 850 ml 600 ml # Bowel Movements 2 General Appearance: no acute distress HEENT: normocephalic Respiratory/Chest: chest wall non-tender Cardiovascular: normal peripheral pulses Current Medications Medications (Trade) Dose Ordered Sig/Conrado Route PRN Reason Start Time Stop Time Status Last Admin Dose Admin Acetaminophen (Tylenol) 500 mg Q6HR PRN GT Mild Pain/Temp > 100.5 07/20/17 13:45 08/19/17 13:44 Clonidine HCl (Catapres Tab) 0.1 mg Q2H PRN GT For High Blood Pressure 07/20/17 14:00 08/19/17 13:59 Collagenase (Santyl) 1 applic BEDTIME TOPIC 07/19/17 21:00 08/12/17 14:59 07/20/17 20:42 Dextrose (Dextrose 50%) STAT PRN IV Hypoglycemia 07/01/17 22:30 07/29/17 22:29 07/12/17 03:56 Dextrose/ Electrolytes 1,000 ml @ 75 mls/hr [id number] IV 07/08/17 15:00 08/07/17 14:59 07/21/17 08:43 Insulin Aspart (NovoLOG) Q6HR SUBQ 07/16/17 06:00 08/05/17 19:29 07/21/17 06:17 Insulin Detemir (Levemir) 23 units Q12HR SUBQ 07/16/17 21:00 08/15/17 20:59 07/21/17 08:44 Losartan Potassium (Cozaar) 50 mg EVERY 12 HOURS GT 07/20/17 21:00 08/19/17 20:59 07/21/17 08:42 Paulo Floyd MD Jul 21, 2017 10:15
[2017-07-21 12:00] VITALS: BP 120/73
--- NOTE | 2017-07-21 14:32 | Infectious Diseases Prog Note ---
Assessment/Plan Problems: (1) Pneumonia Assessment & Plan: with Acinetobacter baumannii , S/P ceftazidime for two weeks , improved . continue aspiration precaution and suctioning to avoid further aspiration , may benefit from tracheostomy (2) Pancreatitis Assessment & Plan: improved , monitor lipase, GI is following, restarted on tube feeding. (3) Cardiopulmonary arrest Assessment & Plan: was extubated from mechanical ventilation , as per family request and made DNR and started on morphin drip, but family changed his code status to full code , he is on tele monitor , cardiology is following , may need tracheostomy , had PEG placement . (4) Anoxic cerebral edema Assessment & Plan: with no improvement, has poor prognosis , no tracheostomy , or PEG tube placement as per family , now full code as per family request , but postural and spastic and unresponsive . (5) Dysphagia Assessment & Plan: he received permanent tube feeding for nutritional support , family wants to proceed with full support Subjective ROS Limited/Unobtainable: Yes Allergies: Coded Allergies: No Known Allergies (Unverified , 06/15/17) Subjective he is still unresponsive , on high flow oxygen , in [place] , postural and spastic in the lower extremities , doesn't follow commands , afebrile .opens eyes spontaneously on/off . doesn't track. had permanent PEG tube placed Objective Vital Signs Last 24 Hour Vital Signs Date Time Temp Pulse Resp B/P (MAP) Pulse Ox O2 Delivery O2 Flow Rate FiO2 07/21/17 12:00 97.7 92 20 120/73 100 Nasal Cannula 3.0 07/21/17 12:00 113 07/21/17 09:09 99 Nasal Cannula 3.0 32 07/21/17 09:09 Nasal Cannula 3.0 32 07/21/17 08:42 123/86 07/21/17 08:00 98.1 102 18 123/86 100 Nasal Cannula 3.0 07/21/17 07:54 96 07/21/17 04:00 98.2 85 20 120/81 100 Nasal Cannula 3.0 07/21/17 04:00 103 07/21/17 00:00 98.1 106 20 114/82 100 Nasal Cannula 3.0 07/21/17 00:00 100 07/20/17 20:40 132/86 07/20/17 20:00 93 07/20/17 20:00 98.4 100 20 131/84 100 Nasal Cannula 3.0 07/20/17 19:17 Nasal Cannula 3.0 32 07/20/17 19:17 98 Nasal Cannula 3.0 32 07/20/17 18:03 107 07/20/17 16:00 97.6 102 19 132/86 100 Nasal Cannula 3.0 Height (Feet): 5 Height (Inches): 6.00 Weight (Pounds): 120 General Appearance: WD/WN, no acute distress, cachetic HEENT: normocephalic, atraumatic, anicteric, mucous membranes moist, no JVD Respiratory/Chest: normal breath sounds, no respiratory distress, no accessory muscle use, decreased breath sounds Cardiovascular: normal peripheral pulses, normal rate, regular rhythm, no gallop/murmur, no JVD Abdomen: normal bowel sounds, soft, non tender, no organomegaly, non distended , no mass, no scars, other - PEG tube site looks ok Extremities: no cyanosis, no clubbing Skin: no rash, no lesions Neurologic/Psychiatric: alert, unresponsiveness Current Medications Medications (Trade) Dose Ordered Sig/Conrado Route PRN Reason Start Time Stop Time Status Last Admin Dose Admin Acetaminophen (Tylenol) 500 mg Q6HR PRN GT Mild Pain/Temp > 100.5 07/20/17 13:45 08/19/17 13:44 Clonidine HCl (Catapres Tab) 0.1 mg Q2H PRN GT For High Blood Pressure 07/20/17 14:00 08/19/17 13:59 Collagenase (Santyl) 1 applic BEDTIME TOPIC 07/19/17 21:00 08/12/17 14:59 07/20/17 20:42 Dextrose (Dextrose 50%) STAT PRN IV Hypoglycemia 07/01/17 22:30 07/29/17 22:29 07/12/17 03:56 Dextrose/ Electrolytes 1,000 ml @ 75 mls/hr [id number] IV 07/08/17 15:00 08/07/17 14:59 07/21/17 08:43 Insulin Aspart (NovoLOG) Q6HR SUBQ 07/16/17 06:00 08/05/17 19:29 07/21/17 13:08 Insulin Detemir (Levemir) 23 units Q12HR SUBQ 2/5/18 21:00 08/15/17 20:59 07/21/17 08:44 Losartan Potassium (Cozaar) 50 mg EVERY 12 HOURS GT 07/20/17 21:00 08/19/17 20:59 07/21/17 08:42 Saad Cummings M.D. Jul 21, 2017 14:32
--- NOTE | 2017-07-21 15:38 | Nephrology Progress Note ---
Assessment/Plan Problem List: (1) Hypernatremia Assessment: Improved (2) Hypokalemia Assessment: corrected (3) Fever (4) Acidosis (5) Respiratory distress (6) Pancreatitis (7) Elevated troponin (8) Alcohol withdrawal (9) Pneumonia (10) Sepsis (11) Cardiopulmonary arrest (12) Metabolic acidosis (13) DKA (diabetic ketoacidosis) (14) Renal failure Assessment: Improved (15) DNR (do not resuscitate) Plan Continue current treatment plan D5W+KCL@ 75cc/hr Monitor temp Suspect diffuse cerebral anoxia and edema with decorticate rigidity per Dr Cano. Monitor lytes, correct prn Monitor neuro status, f/u with neurology rec G-tube feeding per GI Strict glycemic control Monitor renal function on current abx Abx per ID Monitor intake and output Continue carpenter AM labs DC plan Subjective ROS Limited/Unobtainable: Yes Subjective Seen in MARIE,unresponsive, eyes open, does not track Objective Objective Last 24 Hour Vital Signs Date Time Temp Pulse Resp B/P (MAP) Pulse Ox O2 Delivery O2 Flow Rate FiO2 07/21/17 12:00 97.7 92 20 120/73 100 Nasal Cannula 3.0 07/21/17 12:00 113 07/21/17 09:09 99 Nasal Cannula 3.0 32 07/21/17 09:09 Nasal Cannula 3.0 32 07/21/17 08:42 123/86 07/21/17 08:00 98.1 102 18 123/86 100 Nasal Cannula 3.0 07/21/17 07:54 96 07/21/17 04:00 98.2 85 20 120/81 100 Nasal Cannula 3.0 07/21/17 04:00 103 07/21/17 00:00 98.1 106 20 114/82 100 Nasal Cannula 3.0 07/21/17 00:00 100 07/20/17 20:40 132/86 07/20/17 20:00 93 07/20/17 20:00 98.4 100 20 131/84 100 Nasal Cannula 3.0 07/20/17 19:17 Nasal Cannula 3.0 32 07/20/17 19:17 98 Nasal Cannula 3.0 32 07/20/17 18:03 107 07/20/17 16:00 97.6 102 19 132/86 100 Nasal Cannula 3.0 Intake and Output 07/20/17 07/21/17 19:00 07:00 Intake Total 1575 ml 1930 ml Output Total 850 ml 600 ml Balance 725 ml 1330 ml Free Water 100 ml 260 ml IV Total 750 ml Tube Feeding 605 ml 770 ml Other 120 ml 900 ml Output Urine Total 850 ml 600 ml # Bowel Movements 2 Height (Feet): 5 Height (Inches): 6.00 Weight (Pounds): 120 General Appearance: no apparent distress Neck: non-tender Cardiovascular: normal rate Respiratory/Chest: decreased breath sounds Abdomen: soft, other - PEG Genitourinary/Rectal: other - CARPENTER Extremities: trace edema Neurologic: unresponsive Hannah Johnson N.P. Jul 21, 2017 15:38
[2017-07-21 16:00] VITALS: BP 117/86
[2017-07-21] MEDS ORDERED: Sterile Water Irrig 1000ml IRRIG ONE (16:43)
[2017-07-21] MEDS ORDERED: NS 275ml ONE (16:43)
--- NOTE | 2017-07-21 17:13 | Cardiac Electrophysiology PN ---
Assessment/Plan Assessment/Plan 1. Troponin leak due to renal failure. EF 60%. 2. sinus tachycardia due to DKA and sepsis. Resolved 3. S/P Respiratory failure with Terminal extubation. On oxygen. 4. Pneumonia on abx per Dr. Cummings 5. Pancreatitis. 6. ARF.Resolved 7. Marijuana use. 8. Suspect diffuse cerebral anoxia and edema with decorticate rigidity per Dr Cano. 9. Alcohol withdrawal. 10. Severe Hypernatremia. Resolved 11. Full code. 12. Dysphagia.S/P PEG 13. DNR, DNI DW RN Subjective Subjective On MARIE in Sinus Rhythm. No new events. . PEG feeding ongoing. RN at bedside. Objective Last 24 Hour Vital Signs Date Time Temp Pulse Resp B/P (MAP) Pulse Ox O2 Delivery O2 Flow Rate FiO2 07/21/17 12:00 97.7 92 20 120/73 100 Nasal Cannula 3.0 07/21/17 12:00 113 07/21/17 09:09 99 Nasal Cannula 3.0 32 07/21/17 09:09 Nasal Cannula 3.0 32 07/21/17 08:42 123/86 07/21/17 08:00 98.1 102 18 123/86 100 Nasal Cannula 3.0 07/21/17 07:54 96 07/21/17 04:00 98.2 85 20 120/81 100 Nasal Cannula 3.0 07/21/17 04:00 103 07/21/17 00:00 98.1 106 20 114/82 100 Nasal Cannula 3.0 07/21/17 00:00 100 07/20/17 20:40 132/86 07/20/17 20:00 93 07/20/17 20:00 98.4 100 20 131/84 100 Nasal Cannula 3.0 07/20/17 19:17 Nasal Cannula 3.0 32 07/20/17 19:17 98 Nasal Cannula 3.0 32 07/20/17 18:03 107 Intake and Output 07/20/17 07/21/17 19:00 07:00 Intake Total 1575 ml 1930 ml Output Total 850 ml 600 ml Balance 725 ml 1330 ml Free Water 100 ml 260 ml IV Total 750 ml Tube Feeding 605 ml 770 ml Other 120 ml 900 ml Output Urine Total 850 ml 600 ml # Bowel Movements 2 Objective HEAD AND NECK: No JVD. LUNGS: Clear. CARDIOVASCULAR: Regular S1 and S2 with no gallop or murmur. ABDOMEN: PEG in place EXTREMITIES: No pitting edema. ALBERT ROWAN Jul 21, 2017 17:13
[2017-07-21 20:00] VITALS: BP 126/82
[2017-07-22] VITALS: BP 133/86
[2017-07-22] MEDS: NovoLOG Insulin Flexpen SUBQ SCH ×5 (00:05→23:47)
[2017-07-22 04:00] VITALS: BP 129/87
[2017-07-22 08:00] VITALS: BP 130/83
[2017-07-22] MEDS: Losartan 50mg tab GT SCH ×2 (09:00→20:59)
[2017-07-22] MEDS: Levemir Flexpen SUBQ SCH ×2 (09:40→20:58)
--- NOTE | 2017-07-22 09:47 | General Progress Note ---
Assessment/Plan Problem List: (1) DKA (diabetic ketoacidosis) ICD Codes: E13.10 - Other specified diabetes mellitus with ketoacidosis without coma SNOMED: 81536672, 943565391 Qualifiers: Qualified Codes: E10.11 - Type 1 diabetes mellitus with ketoacidosis with coma (2) Metabolic acidosis ICD Codes: E87.2 - Acidosis SNOMED: 55829792 (3) Cardiopulmonary arrest ICD Codes: I46.9 - Cardiac arrest, cause unspecified SNOMED: 764137743 Assessment/Plan continue Levemir 23 units bid continue NISS Subjective ROS Limited/Unobtainable: Yes Allergies: Coded Allergies: No Known Allergies (Unverified , 06/15/17) Subjective events noted - interval notes reviewed on O2 mask TF tolerated Objective Last 24 Hour Vital Signs Date Time Temp Pulse Resp B/P (MAP) Pulse Ox O2 Delivery O2 Flow Rate FiO2 07/22/17 09:00 130/83 07/22/17 08:00 98.2 97 20 130/83 100 Nasal Cannula 3.0 07/22/17 04:00 93 07/22/17 04:00 98.0 107 20 129/87 100 Nasal Cannula 3.0 07/22/17 00:00 98.1 98 20 133/86 100 Nasal Cannula 3.0 07/22/17 00:00 104 07/21/17 20:50 130/84 07/21/17 20:00 99 07/21/17 20:00 97.9 99 20 126/82 100 Nasal Cannula 3.0 07/21/17 19:20 Nasal Cannula 3.0 32 07/21/17 19:20 99 Nasal Cannula 3.0 32 07/21/17 16:00 97.7 77 20 117/86 100 Nasal Cannula 3.0 07/21/17 16:00 84 07/21/17 12:00 97.7 92 20 120/73 100 Nasal Cannula 3.0 07/21/17 12:00 113 Intake and Output 07/21/17 07/22/17 19:00 07:00 Intake Total 1840 ml 1555 ml Output Total 1450 ml 700 ml Balance 390 ml 855 ml Free Water 200 ml 200 ml IV Total 825 ml 750 ml Tube Feeding 715 ml 605 ml Other 100 ml Output Urine Total 1450 ml 700 ml # Bowel Movements 2 1 Height (Feet): 5 Height (Inches): 6.00 Weight (Pounds): 120 Neck: normal alignment Cardiovascular: normal rate Respiratory/Chest: decreased breath sounds Abdomen: normal bowel sounds Pelvis: normal external exam Edema: no edema noted Arm (L), no edema noted Arm (R), no edema noted Leg (L), no edema noted Leg (R), no edema noted Pedal (L), no edema noted Pedal (R), no edema noted Generalized Objective Current Medications Medications (Trade) Dose Ordered Sig/Conrado Route PRN Reason Start Time Stop Time Status Last Admin Dose Admin Acetaminophen (Tylenol) 500 mg Q6HR PRN GT Mild Pain/Temp > 100.5 07/20/17 13:45 08/19/17 13:44 Clonidine HCl (Catapres Tab) 0.1 mg Q2H PRN GT For High Blood Pressure 07/20/17 14:00 08/19/17 13:59 Collagenase (Santyl) 1 applic BEDTIME TOPIC 07/19/17 21:00 08/12/17 14:59 07/21/17 20:50 Dextrose (Dextrose 50%) STAT PRN IV Hypoglycemia 07/01/17 22:30 07/29/17 22:29 07/12/17 03:56 Dextrose/ Electrolytes 1,000 ml @ 75 mls/hr [id number] IV 07/08/17 15:00 08/07/17 14:59 07/21/17 22:54 Insulin Aspart (NovoLOG) Q6HR SUBQ 07/16/17 06:00 08/05/17 19:29 07/22/17 05:59 Insulin Detemir (Levemir) 23 units Q12HR SUBQ 07/16/17 21:00 08/15/17 20:59 07/22/17 09:40 Losartan Potassium (Cozaar) 50 mg EVERY 12 HOURS GT 07/20/17 21:00 08/19/17 20:59 07/21/17 20:50 Item Value Date Time Bedside Blood Glucose 152 mg/dl H 07/22/17 0940 Bedside Blood Glucose 152 mg/dl H 07/22/17 0600 Bedside Blood Glucose 267 mg/dl H 07/22/17 0005 Bedside Blood Glucose 241 mg/dl H 07/21/172051 Bedside Blood Glucose 83 mg/dl 07/21/17 1741 Bedside Blood Glucose 250 mg/dl H 07/21/17 1308 Bedside Blood Glucose 157 mg/dl H 07/21/17 0844 JADIEL MARCANO Jul 22, 2017 09:47
--- NOTE | 2017-07-22 09:48 | Pulmonology Progress Note ---
Assessment/Plan Assessment/Plan IMPRESSION: 1. Respiratory failure; extubated 2. Cannabis usage. 3. Diabetic ketoacidosis. 4. Troponin leak. 5. Tachycardia. 6. Anoxic brain injury DISCUSSION: Continue present management and care. now extubated Poor prognosis Remains on supplemental O2; now with lower FiO2; on 2-4L/min ABG adequate Continue oral airway/suctioning CXR clear Subjective Interval Events: On nasal o2 Constitutional: Reports: no symptoms HEENT: Repors: no symptoms Respiratory: Reports: no symptoms Cardiovascular: Reports: no symptoms Gastrointestinal/Abdominal: Reports: no symptoms Allergies: Coded Allergies: No Known Allergies (Unverified , 06/15/17) Objective Last 24 Hour Vital Signs Date Time Temp Pulse Resp B/P (MAP) Pulse Ox O2 Delivery O2 Flow Rate FiO2 07/22/17 09:00 130/83 07/22/17 08:00 98.2 97 20 130/83 100 Nasal Cannula 3.0 07/22/17 04:00 93 07/22/17 04:00 98.0 107 20 129/87 100 Nasal Cannula 3.0 07/22/17 00:00 98.1 98 20 133/86 100 Nasal Cannula 3.0 07/22/17 00:00 104 07/21/17 20:50 130/84 07/21/17 20:00 99 07/21/17 20:00 97.9 99 20 126/82 100 Nasal Cannula 3.0 07/21/17 19:20 Nasal Cannula 3.0 32 07/21/17 19:20 99 Nasal Cannula 3.0 32 07/21/17 16:00 97.7 77 20 117/86 100 Nasal Cannula 3.0 07/21/17 16:00 84 07/21/17 12:00 97.7 92 20 120/73 100 Nasal Cannula 3.0 07/21/17 12:00 113 Intake and Output 07/21/17 07/22/17 19:00 07:00 Intake Total 1840 ml 1555 ml Output Total 1450 ml 700 ml Balance 390 ml 855 ml Free Water 200 ml 200 ml IV Total 825 ml 750 ml Tube Feeding 715 ml 605 ml Other 100 ml Output Urine Total 1450 ml 700 ml # Bowel Movements 2 1 General Appearance: no acute distress HEENT: normocephalic Respiratory/Chest: chest wall non-tender, lungs clear Cardiovascular: normal peripheral pulses, normal rate Current Medications Medications (Trade) Dose Ordered Sig/Conrado Route PRN Reason Start Time Stop Time Status Last Admin Dose Admin Acetaminophen (Tylenol) 500 mg Q6HR PRN GT Mild Pain/Temp > 100.5 07/20/17 13:45 08/19/17 13:44 Clonidine HCl (Catapres Tab) 0.1 mg Q2H PRN GT For High Blood Pressure 07/20/17 14:00 08/19/17 13:59 Collagenase (Santyl) 1 applic BEDTIME TOPIC 07/19/17 21:00 08/12/17 14:59 07/21/17 20:50 Dextrose (Dextrose 50%) STAT PRN IV Hypoglycemia 07/01/17 22:30 07/29/17 22:29 07/12/17 03:56 Dextrose/ Electrolytes 1,000 ml @ 75 mls/hr [id number] IV 07/08/17 15:00 08/07/17 14:59 07/21/17 22:54 Insulin Aspart (NovoLOG) Q6HR SUBQ 07/16/17 06:00 08/05/17 19:29 07/22/17 05:59 Insulin Detemir (Levemir) 23 units Q12HR SUBQ 07/16/17 21:00 08/15/17 20:59 07/22/17 09:40 Losartan Potassium (Cozaar) 50 mg EVERY 12 HOURS GT 07/20/17 21:00 08/19/17 20:59 07/21/17 20:50 Paulo Floyd MD Jul 22, 2017 09:48
[2017-07-22 12:00] VITALS: BP 129/77
--- NOTE | 2017-07-22 12:02 | Nephrology Progress Note ---
Assessment/Plan Problem List: (1) Hypernatremia Assessment: Improved (2) Hypokalemia Assessment: corrected (3) Fever (4) Acidosis (5) Respiratory distress (6) Pancreatitis (7) Elevated troponin (8) Alcohol withdrawal (9) Pneumonia (10) Sepsis (11) Cardiopulmonary arrest (12) Metabolic acidosis (13) DKA (diabetic ketoacidosis) (14) Renal failure Assessment: Improved (15) DNR (do not resuscitate) Plan Continue current treatment plan D5W+KCL@ 75cc/hr Monitor temp Suspect diffuse cerebral anoxia and edema with decorticate rigidity per Dr Cano. Monitor lytes, correct prn Monitor neuro status, f/u with neurology rec G-tube feeding per GI Strict glycemic control Monitor renal function on current abx Abx per ID Monitor intake and output Continue carpenter AM labs DC plan Subjective ROS Limited/Unobtainable: Yes Subjective Seen in [facility],unresponsive, eyes open, does not track Objective Objective Last 24 Hour Vital Signs Date Time Temp Pulse Resp B/P (MAP) Pulse Ox O2 Delivery O2 Flow Rate FiO2 07/22/17 09:00 130/83 07/22/17 08:00 108 07/22/17 08:00 98.2 97 20 130/83 100 Nasal Cannula 3.0 07/22/17 04:00 93 07/22/17 04:00 98.0 107 20 129/87 100 Nasal Cannula 3.0 07/22/17 00:00 98.1 98 20 133/86 100 Nasal Cannula 3.0 07/22/17 00:00 104 07/21/17 20:50 130/84 07/21/17 20:00 99 07/21/17 20:00 97.9 99 20 126/82 100 Nasal Cannula 3.0 07/21/17 19:20 Nasal Cannula 3.0 32 07/21/17 19:20 99 Nasal Cannula 3.0 32 07/21/17 16:00 97.7 77 20 117/86 100 Nasal Cannula 3.0 07/21/17 16:00 84 Intake and Output 07/21/17 07/22/17 19:00 07:00 Intake Total 1840 ml 1555 ml Output Total 1450 ml 700 ml Balance 390 ml 855 ml Free Water 200 ml 200 ml IV Total 825 ml 750 ml Tube Feeding 715 ml 605 ml Other 100 ml Output Urine Total 1450 ml 700 ml # Bowel Movements 2 1 Height (Feet): 5 Height (Inches): 6.00 Weight (Pounds): 120 General Appearance: no apparent distress Neck: supple Cardiovascular: normal rate Respiratory/Chest: decreased breath sounds Abdomen: soft, other - PEG Genitourinary/Rectal: other - CARPENTER Extremities: trace edema Neurologic: unresponsive Hannah Johnson N.P. Jul 22, 2017 12:02
[2017-07-22] MEDS: D5W w/KCl 20mEq 1,000 ML IV SCH (12:37)
[2017-07-22 16:00] VITALS: BP 121/77
--- NOTE | 2017-07-22 17:37 | Infectious Diseases Prog Note ---
Assessment/Plan Problems: (1) Pneumonia Assessment & Plan: with Acinetobacter baumannii , S/P ceftazidime for two weeks , improved . continue aspiration precaution and suctioning to avoid further aspiration , may benefit from tracheostomy (2) Pancreatitis Assessment & Plan: improved , monitor lipase, GI is following, restarted on tube feeding. (3) Cardiopulmonary arrest Assessment & Plan: was extubated from mechanical ventilation , as per family request and made DNR and started on morphin drip, but family changed his code status to full code , he is on tele monitor , cardiology is following , may need tracheostomy due to large amount of secretions , had PEG placement . (4) Anoxic cerebral edema Assessment & Plan: with no improvement, has poor prognosis , no tracheostomy , or PEG tube placement as per family , now full code as per family request , but postural and spastic and unresponsive . (5) Dysphagia Assessment & Plan: he received permanent tube feeding for nutritional support , family wants to proceed with full support Subjective ROS Limited/Unobtainable: Yes Allergies: Coded Allergies: No Known Allergies (Unverified , 06/15/17) Subjective he is still unresponsive , on high flow oxygen , has large amount of oral secretions , postural and spastic in the lower extremities , doesn't follow commands , afebrile .opens eyes spontaneously on/off . doesn't track. had permanent PEG tube placed Objective Vital Signs Last 24 Hour Vital Signs Date Time Temp Pulse Resp B/P (MAP) Pulse Ox O2 Delivery O2 Flow Rate FiO2 07/22/17 16:00 97.9 108 18 121/77 100 Nasal Cannula 3.0 07/22/17 12:10 117 07/22/17 12:00 97.9 115 20 129/77 100 Nasal Cannula 3.0 07/22/17 09:00 130/83 07/22/17 08:00 108 07/22/17 08:00 98.2 97 20 130/83 100 Nasal Cannula 3.0 07/22/17 04:00 93 07/22/17 04:00 98.0 107 20 129/87 100 Nasal Cannula 3.0 07/22/17 00:00 98.1 98 20 133/86 100 Nasal Cannula 3.0 07/22/17 00:00 104 07/21/17 20:50 130/84 07/21/17 20:00 99 07/21/17 20:00 97.9 99 20 126/82 100 Nasal Cannula 3.0 07/21/17 19:20 Nasal Cannula 3.0 32 07/21/17 19:20 99 Nasal Cannula 3.0 32 Height (Feet): 5 Height (Inches): 6.00 Weight (Pounds): 120 General Appearance: WD/WN, cachetic, other - spastic and postural HEENT: normocephalic, atraumatic, anicteric, mucous membranes moist Respiratory/Chest: chest wall non-tender, lungs clear, normal breath sounds, no respiratory distress, no accessory muscle use, decreased breath sounds Cardiovascular: normal peripheral pulses, normal rate, regular rhythm, no gallop/murmur, no JVD Abdomen: normal bowel sounds, soft, non tender, no organomegaly, non distended , no mass, no scars Genitourinary: normal external genitalia Extremities: no cyanosis, no clubbing Skin: no rash, no lesions, ulcers Neurologic/Psychiatric: unresponsiveness Current Medications Medications (Trade) Dose Ordered Sig/Conraod Route PRN Reason Start Time Stop Time Status Last Admin Dose Admin Acetaminophen (Tylenol) 500 mg Q6HR PRN GT Mild Pain/Temp > 100.5 07/20/17 13:45 08/19/17 13:44 Clonidine HCl (Catapres Tab) 0.1 mg Q2H PRN GT For High Blood Pressure 07/20/17 14:00 08/19/17 13:59 Collagenase (Santyl) 1 applic BEDTIME TOPIC 07/19/17 21:00 08/12/17 14:59 07/21/17 20:50 Dextrose (Dextrose 50%) STAT PRN IV Hypoglycemia 07/01/17 22:30 07/29/17 22:29 07/12/17 03:56 Dextrose/ Electrolytes 1,000 ml @ 75 mls/hr [id number] IV 07/08/17 15:00 08/07/17 14:59 07/22/17 12:37 Insulin Aspart (NovoLOG) Q6HR SUBQ 07/16/17 06:00 08/05/17 19:29 07/22/17 12:31 Insulin Detemir (Levemir) 23 units Q12HR SUBQ 07/16/17 21:00 08/15/17 20:59 07/22/17 09:40 Losartan Potassium (Cozaar) 50 mg EVERY 12 HOURS GT 07/20/17 21:00 08/19/17 20:59 07/21/17 20:50 Saad Cummings M.D. Jul 22, 2017 17:37
[2017-07-22 20:00] VITALS: BP 122/81
[2017-07-23] VITALS (7 sets, daily range): BP systolic 125–152; BP diastolic 84–96
[2017-07-23] MEDS: D5W w/KCl 20mEq 1,000 ML IV SCH ×2 (01:42→15:08)
[2017-07-23] MEDS: NovoLOG Insulin Flexpen SUBQ SCH ×4 (06:00→23:57)
--- NOTE | 2017-07-23 08:09 | General Progress Note ---
Assessment/Plan Problem List: (1) DKA (diabetic ketoacidosis) ICD Codes: E13.10 - Other specified diabetes mellitus with ketoacidosis without coma SNOMED: 09871997, 873614049 Qualifiers: Qualified Codes: E10.11 - Type 1 diabetes mellitus with ketoacidosis with coma (2) Metabolic acidosis ICD Codes: E87.2 - Acidosis SNOMED: 75799815 (3) Cardiopulmonary arrest ICD Codes: I46.9 - Cardiac arrest, cause unspecified SNOMED: 991680532 Assessment/Plan continue Levemir 23 units bid continue NISS Subjective ROS Limited/Unobtainable: Yes Allergies: Coded Allergies: No Known Allergies (Unverified , 06/15/17) Subjective events noted - interval notes reviewed Item Value Date Time Bedside Blood Glucose 104 mg/dl 07/23/17 0600 Bedside Blood Glucose 137 mg/dl H 07/23/17 0000 Bedside Blood Glucose 130 mg/dl H 07/22/17 2058 Bedside Blood Glucose 105 mg/dl 07/22/17 1735 Bedside Blood Glucose 280 mg/dl H 07/22/17 1231 Bedside Blood Glucose 152 mg/dl H 07/22/17 0940 Objective Last 24 Hour Vital Signs Date Time Temp Pulse Resp B/P (MAP) Pulse Ox O2 Delivery O2 Flow Rate FiO2 07/23/17 05:38 98.0 107 20 152/96 100 Nasal Cannula 3.0 07/23/17 04:00 98.1 107 20 152/96 100 Nasal Cannula 3.0 07/23/17 04:00 108 07/23/17 00:00 100 07/23/17 00:00 98.1 102 20 134/84 98 Nasal Cannula 3.0 07/22/17 20:59 122/79 07/22/17 20:00 98.4 104 20 122/81 100 Nasal Cannula 3.0 07/22/17 20:00 93 07/22/17 19:31 Nasal Cannula 2.0 28 07/22/17 19:31 98 Nasal Cannula 2.0 28 07/22/17 16:00 110 07/22/17 16:00 97.9 108 18 121/77 100 Nasal Cannula 3.0 07/22/17 12:10 117 07/22/17 12:00 97.9 115 20 129/77 100 Nasal Cannula 3.0 07/22/17 09:00 130/83 Intake and Output 07/22/17 07/23/17 19:00 07:00 Intake Total 1610 ml 1573 ml Output Total 875 ml 300 ml Balance 735 ml 1273 ml Free Water 200 ml 200 ml IV Total 750 ml 768 ml Tube Feeding 660 ml 605 ml Output Urine Total 875 ml 300 ml # Voids 200 # Bowel Movements 1 2 Height (Feet): 5 Height (Inches): 6.00 Weight (Pounds): 120 General Appearance: no apparent distress Neck: normal alignment Cardiovascular: normal rate Respiratory/Chest: lungs clear Abdomen: normal bowel sounds Objective Current Medications Medications (Trade) Dose Ordered Sig/Conrado Route PRN Reason Start Time Stop Time Status Last Admin Dose Admin Acetaminophen (Tylenol) 500 mg Q6HR PRN GT Mild Pain/Temp > 100.5 07/20/17 13:45 08/19/17 13:44 Clonidine HCl (Catapres Tab) 0.1 mg Q2H PRN GT For High Blood Pressure 07/20/17 14:00 08/19/17 13:59 Collagenase (Santyl) 1 applic BEDTIME TOPIC 07/19/17 21:00 08/12/17 14:59 07/22/17 20:56 Dextrose (Dextrose 50%) STAT PRN IV Hypoglycemia 07/01/17 22:30 07/29/17 22:29 07/12/17 03:56 Dextrose/ Electrolytes 1,000 ml @ 75 mls/hr [id number] IV 07/08/17 15:00 08/07/17 14:59 07/23/17 01:42 Insulin Aspart (NovoLOG) Q6HR SUBQ 07/16/17 06:00 08/05/17 19:29 07/22/17 23:47 Insulin Detemir (Levemir) 23 units Q12HR SUBQ 07/16/17 21:00 08/15/17 20:59 07/22/17 20:58 Losartan Potassium (Cozaar) 50 mg EVERY 12 HOURS GT 07/20/17 21:00 08/19/17 20:59 07/21/17 20:50 JADIEL MARCANO Jul 23, 2017 08:08
[2017-07-23] MEDS: Levemir Flexpen SUBQ SCH ×2 (08:22→20:42)
[2017-07-23] MEDS: Losartan 50mg tab GT SCH ×2 (09:00→20:38)
--- NOTE | 2017-07-23 09:08 | Pulmonology Progress Note ---
Assessment/Plan Assessment/Plan IMPRESSION: 1. Respiratory failure; extubated 2. Cannabis usage. 3. Diabetic ketoacidosis. 4. Troponin leak. 5. Tachycardia. 6. Anoxic brain injury DISCUSSION: Continue present management and care. now extubated Poor prognosis Remains on supplemental O2; now with lower FiO2; on 2-4L/min ABG adequate Continue oral airway/suctioning CXR clear Subjective Interval Events: None Constitutional: Reports: no symptoms HEENT: Repors: no symptoms Respiratory: Reports: no symptoms Cardiovascular: Reports: no symptoms Gastrointestinal/Abdominal: Reports: no symptoms Allergies: Coded Allergies: No Known Allergies (Unverified , 06/15/17) Objective Last 24 Hour Vital Signs Date Time Temp Pulse Resp B/P (MAP) Pulse Ox O2 Delivery O2 Flow Rate FiO2 07/23/17 08:00 99.3 115 21 138/94 100 Nasal Cannula 3.0 07/23/17 05:38 98.0 107 20 152/96 100 Nasal Cannula 3.0 07/23/17 04:00 98.1 107 20 152/96 100 Nasal Cannula 3.0 07/23/17 04:00 108 07/23/17 00:00 100 07/23/17 00:00 98.1 102 20 134/84 98 Nasal Cannula 3.0 07/22/17 20:59 122/79 07/22/17 20:00 98.4 104 20 122/81 100 Nasal Cannula 3.0 07/22/17 20:00 93 07/22/17 19:31 Nasal Cannula 2.0 28 07/22/17 19:31 98 Nasal Cannula 2.0 28 07/22/17 16:00 110 07/22/17 16:00 97.9 108 18 121/77 100 Nasal Cannula 3.0 07/22/17 12:10 117 07/22/17 12:00 97.9 115 20 129/77 100 Nasal Cannula 3.0 Intake and Output 07/22/17 07/23/17 19:00 07:00 Intake Total 1610 ml 1573 ml Output Total 875 ml 300 ml Balance 735 ml 1273 ml Free Water 200 ml 200 ml IV Total 750 ml 768 ml Tube Feeding 660 ml 605 ml Output Urine Total 875 ml 300 ml # Voids 200 # Bowel Movements 1 2 General Appearance: no acute distress HEENT: normocephalic Respiratory/Chest: chest wall non-tender, lungs clear Cardiovascular: normal peripheral pulses, normal rate Abdomen: normal bowel sounds, soft, non tender Current Medications Medications (Trade) Dose Ordered Sig/Conrado Route PRN Reason Start Time Stop Time Status Last Admin Dose Admin Acetaminophen (Tylenol) 500 mg Q6HR PRN GT Mild Pain/Temp > 100.5 07/20/17 13:45 08/19/17 13:44 Clonidine HCl (Catapres Tab) 0.1 mg Q2H PRN GT For High Blood Pressure 07/20/17 14:00 08/19/17 13:59 Collagenase (Santyl) 1 applic BEDTIME TOPIC 07/19/17 21:00 08/12/17 14:59 07/22/17 20:56 Dextrose (Dextrose 50%) STAT PRN IV Hypoglycemia 07/01/17 22:30 07/29/17 22:29 07/12/17 03:56 Dextrose/ Electrolytes 1,000 ml @ 75 mls/hr [id number] IV 07/08/17 15:00 08/07/17 14:59 07/23/17 01:42 Insulin Aspart (NovoLOG) Q6HR SUBQ 07/16/17 06:00 08/05/17 19:29 07/22/17 23:47 Insulin Detemir (Levemir) 23 units Q12HR SUBQ 07/16/17 21:00 08/15/17 20:59 07/23/17 08:22 Losartan Potassium (Cozaar) 50 mg EVERY 12 HOURS GT 07/20/17 21:00 08/19/17 20:59 07/21/17 20:50 Paulo Floyd MD Jul 23, 2017 09:08
--- NOTE | 2017-07-23 11:08 | GI Progress Note ---
Assessment/Plan Problems: (1) Anoxic cerebral edema ICD Codes: G93.6 - Cerebral edema; R09.02 - Hypoxemia SNOMED: 9679350, 237779073 (2) Transaminitis ICD Codes: R74.0 - Nonspecific elevation of levels of transaminase and lactic acid dehydrogenase [LDH] SNOMED: 886317891, 651969597 (3) Alcohol withdrawal ICD Codes: F10.239 - Alcohol dependence with withdrawal, unspecified SNOMED: 541168737 (4) Pancreatitis ICD Codes: K85.90 - Acute pancreatitis without necrosis or infection, unspecified SNOMED: 57789348 Status: unchanged Status Narrative Discussed with Dr. Rico. Assessment/Plan s/p PEG GTFs per RD electrolyte correction fu labs dc planning Subjective Subjective limited Objective Last 24 Hour Vital Signs Date Time Temp Pulse Resp B/P (MAP) Pulse Ox O2 Delivery O2 Flow Rate FiO2 07/23/17 09:00 138/94 07/23/17 08:00 99.3 115 21 138/94 100 Nasal Cannula 3.0 07/23/17 08:00 120 07/23/17 05:38 98.0 107 20 152/96 100 Nasal Cannula 3.0 07/23/17 04:00 98.1 107 20 152/96 100 Nasal Cannula 3.0 07/23/17 04:00 108 07/23/17 00:00 100 07/23/17 00:00 98.1 102 20 134/84 98 Nasal Cannula 3.0 07/22/17 20:59 122/79 07/22/17 20:00 98.4 104 20 122/81 100 Nasal Cannula 3.0 07/22/17 20:00 93 07/22/17 19:31 Nasal Cannula 2.0 28 07/22/17 19:31 98 Nasal Cannula 2.0 28 07/22/17 16:00 110 07/22/17 16:00 97.9 108 18 121/77 100 Nasal Cannula 3.0 07/22/17 12:10 117 07/22/17 12:00 97.9 115 20 129/77 100 Nasal Cannula 3.0 Intake and Output 07/22/17 07/23/17 19:00 07:00 Intake Total 1610 ml 1703 ml Output Total 875 ml 300 ml Balance 735 ml 1403 ml Free Water 200 ml 200 ml IV Total 750 ml 843 ml Tube Feeding 660 ml 660 ml Output Urine Total 875 ml 300 ml # Voids 200 # Bowel Movements 1 2 Height (Feet): 5 Height (Inches): 6.00 Weight (Pounds): 120 General Appearance: no apparent distress Cardiovascular: normal rate Respiratory/Chest: normal breath sounds, no respiratory distress, other - NC Abdominal Exam: normal bowel sounds, non tender, soft, GT site - c/d/i Extremities: non-tender Lashawn Mason N.P. Jul 23, 2017 11:08
--- NOTE | 2017-07-23 11:12 | Cardiac Electrophysiology PN ---
Assessment/Plan Assessment/Plan 1. Troponin leak due to renal failure. EF 60%. 2. Sinus tachycardia due to DKA and sepsis. Resolved 3. S/P Respiratory failure with Terminal extubation. On oxygen. 4. Pneumonia on abx per Dr. Cummings 5. Pancreatitis. 6. ARF.Resolved 7. Marijuana use. 8. Suspect diffuse cerebral anoxia and edema with decorticate rigidity per Dr Cano. 9. Alcohol withdrawal. 10. Severe Hypernatremia. Resolved 11. Full code. 12. Dysphagia.S/P PEG 13. DNR, DNI 14. Placement issue DW RN Subjective Subjective No new events. . PEG feeding ongoing. RN at bedside.Still awaiting placement Objective Last 24 Hour Vital Signs Date Time Temp Pulse Resp B/P (MAP) Pulse Ox O2 Delivery O2 Flow Rate FiO2 07/23/17 09:00 138/94 07/23/17 08:00 99.3 115 21 138/94 100 Nasal Cannula 3.0 07/23/17 08:00 120 07/23/17 05:38 98.0 107 20 152/96 100 Nasal Cannula 3.0 07/23/17 04:00 98.1 107 20 152/96 100 Nasal Cannula 3.0 07/23/17 04:00 108 07/23/17 00:00 100 07/23/17 00:00 98.1 102 20 134/84 98 Nasal Cannula 3.0 07/22/17 20:59 122/79 07/22/17 20:00 98.4 104 20 122/81 100 Nasal Cannula 3.0 07/22/17 20:00 93 07/22/17 19:31 Nasal Cannula 2.0 28 07/22/17 19:31 98 Nasal Cannula 2.0 28 07/22/17 16:00 110 07/22/17 16:00 97.9 108 18 121/77 100 Nasal Cannula 3.0 07/22/17 12:10 117 07/22/17 12:00 97.9 115 20 129/77 100 Nasal Cannula 3.0 Intake and Output 07/22/17 07/23/17 19:00 07:00 Intake Total 1610 ml 1703 ml Output Total 875 ml 300 ml Balance 735 ml 1403 ml Free Water 200 ml 200 ml IV Total 750 ml 843 ml Tube Feeding 660 ml 660 ml Output Urine Total 875 ml 300 ml # Voids 200 # Bowel Movements 1 2 Objective HEAD AND NECK: No JVD. LUNGS: Clear. CARDIOVASCULAR: Regular S1 and S2 with no gallop or murmur. ABDOMEN: PEG in place EXTREMITIES: No pitting edema. ALBERT ROWAN Jul 23, 2017 11:12
--- NOTE | 2017-07-23 14:52 | Infectious Diseases Prog Note ---
Assessment/Plan Problems: (1) Pneumonia Assessment & Plan: with Acinetobacter baumannii , S/P ceftazidime for two weeks , improved . continue aspiration precaution and suctioning to avoid further aspiration , may benefit from tracheostomy. will order CXR for follow up (2) Pancreatitis Assessment & Plan: improved , monitor lipase, GI is following, restarted on tube feeding. (3) Cardiopulmonary arrest Assessment & Plan: was extubated from mechanical ventilation , as per family request and made DNR and started on morphin drip, but family changed his code status to full code , he is on tele monitor , cardiology is following , may need tracheostomy due to large amount of secretions , had PEG placement . (4) Anoxic cerebral edema Assessment & Plan: with no improvement, has poor prognosis , no tracheostomy , or PEG tube placement as per family , now full code as per family request , but postural and spastic and unresponsive . (5) Dysphagia Assessment & Plan: he received permanent tube feeding for nutritional support , family wants to proceed with full support (6) Excessive salivation Assessment & Plan: watch out for aspiration, keep oral suctioning Subjective ROS Limited/Unobtainable: Yes Allergies: Coded Allergies: No Known Allergies (Unverified , 06/15/17) Subjective he is still unresponsive , on high flow oxygen , has large amount of saliva , postural and spastic in the lower extremities , doesn't follow commands , afebrile .opens eyes spontaneously on/off . doesn't track. had permanent PEG tube placed Objective Vital Signs Last 24 Hour Vital Signs Date Time Temp Pulse Resp B/P (MAP) Pulse Ox O2 Delivery O2 Flow Rate FiO2 07/23/17 12:00 99.1 112 21 129/91 100 Nasal Cannula 3.0 07/23/17 12:00 106 07/23/17 09:00 138/94 07/23/17 08:00 99.3 115 21 138/94 100 Nasal Cannula 3.0 07/23/17 08:00 120 07/23/17 05:38 98.0 107 20 152/96 100 Nasal Cannula 3.0 07/23/17 04:00 98.1 107 20 152/96 100 Nasal Cannula 3.0 07/23/17 04:00 108 07/23/17 00:00 100 07/23/17 00:00 98.1 102 20 134/84 98 Nasal Cannula 3.0 07/22/17 20:59 122/79 07/22/17 20:00 98.4 104 20 122/81 100 Nasal Cannula 3.0 07/22/17 20:00 93 07/22/17 19:31 Nasal Cannula 2.0 28 07/22/17 19:31 98 Nasal Cannula 2.0 28 07/22/17 16:00 110 07/22/17 16:00 97.9 108 18 121/77 100 Nasal Cannula 3.0 Height (Feet): 5 Height (Inches): 6.00 Weight (Pounds): 120 General Appearance: WD/WN, no acute distress HEENT: normocephalic, atraumatic, anicteric, mucous membranes moist, PERRL Respiratory/Chest: chest wall non-tender, lungs clear, normal breath sounds, no respiratory distress, no accessory muscle use Cardiovascular: normal peripheral pulses, normal rate, regular rhythm, no gallop/murmur, no JVD Abdomen: normal bowel sounds, soft, non tender, no organomegaly, non distended , no mass, no scars Extremities: no cyanosis, no clubbing Skin: no rash, no lesions, no ulcers Neurologic/Psychiatric: alert, oriented x 3 Lymphatic: no neck adenopathy, no groin adenopathy Current Medications Medications (Trade) Dose Ordered Sig/Conrado Route PRN Reason Start Time Stop Time Status Last Admin Dose Admin Acetaminophen (Tylenol) 500 mg Q6HR PRN GT Mild Pain/Temp > 100.5 07/20/17 13:45 08/19/17 13:44 Clonidine HCl (Catapres Tab) 0.1 mg Q2H PRN GT For High Blood Pressure 07/20/17 14:00 08/19/17 13:59 Collagenase (Santyl) 1 applic BEDTIME TOPIC 07/19/17 21:00 08/12/17 14:59 07/22/17 20:56 Dextrose (Dextrose 50%) STAT PRN IV Hypoglycemia 07/01/17 22:30 07/29/17 22:29 07/12/17 03:56 Dextrose/ Electrolytes 1,000 ml @ 75 mls/hr [id number] IV 07/08/17 15:00 08/07/17 14:59 07/23/17 01:42 Insulin Aspart (NovoLOG) Q6HR SUBQ 2/5/18 06:00 08/05/17 19:29 07/23/17 12:35 Insulin Detemir (Levemir) 23 units Q12HR SUBQ 07/16/17 21:00 08/15/17 20:59 07/23/17 08:22 Losartan Potassium (Cozaar) 50 mg EVERY 12 HOURS GT 07/20/17 21:00 08/19/17 20:59 07/21/17 20:50 Saad Cummings M.D. Jul 23, 2017 14:52
--- NOTE | 2017-07-23 15:23 | Diagnostic Imaging Report ---
Indication: Cough Comparison: 07/07/1979 A single view chest radiograph was obtained. Findings: There is mild left basal atelectasis with volume loss and elevation of the left hemidiaphragm. Heart size is normal. The bones are slightly osteopenic. IMPRESSION: Mild left basal atelectasis
[2017-07-23 15:29] LABS: BASOPHILS % (AUTO) 1.2 % (0.0-2.0); EOSINOPHILS % (AUTO) 2.1 % (0.0-3.0); HEMATOCRIT 27.5 % (42.0-52.0); HEMOGLOBIN 9.5 G/DL (14.2-18.0); MEAN CORPUSCULAR VOLUME 95 FL (80-99); MONOCYTES % (AUTO) 5.4 % (1.0-10.0); NEUTROPHILS % (AUTO) 68.3 % (45.0-75.0); PLATELET COUNT 359 K/UL (150-450); RED CELL DISTRIBUTION WIDTH 11.5 % (11.6-14.8); WHITE BLOOD COUNT 6.8 K/UL (4.8-10.8)
[2017-07-23 15:46] LABS: ALANINE AMINOTRANSFERASE 54 U/L (12-78); ALBUMIN 2.6 G/DL (3.4-5.0); ALBUMIN/GLOBULIN RATIO 0.6 (1.0-2.7); ALKALINE PHOSPHATASE 86 U/L (46-116); ANION GAP 7 mmol/L (5-15); ASPARTATE AMINO TRANSFERASE 54 U/L (15-37); BILIRUBIN,TOTAL 0.1 MG/DL (0.2-1.0); BLOOD UREA NITROGEN 17 mg/dL (7-18); CALCIUM 9.8 MG/DL (8.5-10.1); CARBON DIOXIDE 31 MMOL/L (21-32); CHLORIDE 101 MMOL/L (98-107); CREATININE 0.6 MG/DL (0.55-1.30); SODIUM 139 MMOL/L (136-145)
--- NOTE | 2017-07-23 17:34 | Nephrology Progress Note ---
Assessment/Plan Problem List: (1) Hypernatremia Assessment: Improved (2) Hypokalemia Assessment: corrected (3) Fever (4) Acidosis (5) Respiratory distress (6) Pancreatitis (7) Elevated troponin (8) Alcohol withdrawal (9) Pneumonia (10) Sepsis (11) Cardiopulmonary arrest (12) Metabolic acidosis (13) DKA (diabetic ketoacidosis) (14) Renal failure Assessment: Improved (15) DNR (do not resuscitate) Plan Continue current treatment plan D5W+KCL@ 75cc/hr Monitor temp Suspect diffuse cerebral anoxia and edema with decorticate rigidity per Dr Cano. Monitor lytes, correct prn Monitor neuro status, f/u with neurology rec G-tube feeding per GI Strict glycemic control Monitor renal function on current abx Abx per ID Monitor intake and output Continue carpenter AM labs DC plan Subjective ROS Limited/Unobtainable: Yes Subjective Seen in [facility], eyes open, does not track Objective Objective Last 24 Hour Vital Signs Date Time Temp Pulse Resp B/P (MAP) Pulse Ox O2 Delivery O2 Flow Rate FiO2 07/23/17 16:00 98.3 111 21 125/86 100 Nasal Cannula 3.0 07/23/17 16:00 94 07/23/17 12:00 99.1 112 21 129/91 100 Nasal Cannula 3.0 07/23/17 12:00 106 07/23/17 09:00 138/94 07/23/17 08:00 99.3 115 21 138/94 100 Nasal Cannula 3.0 07/23/17 08:00 120 07/23/17 05:38 98.0 107 20 152/96 100 Nasal Cannula 3.0 07/23/17 04:00 98.1 107 20 152/96 100 Nasal Cannula 3.0 07/23/17 04:00 108 07/23/17 00:00 100 07/23/17 00:00 98.1 102 20 134/84 98 Nasal Cannula 3.0 07/22/17 20:59 122/79 07/22/17 20:00 98.4 104 20 122/81 100 Nasal Cannula 3.0 07/22/17 20:00 93 07/22/17 19:31 Nasal Cannula 2.0 28 07/22/17 19:31 98 Nasal Cannula 2.0 28 Intake and Output 07/22/17 07/23/17 19:00 07:00 Intake Total 1610 ml 1703 ml Output Total 875 ml 300 ml Balance 735 ml 1403 ml Free Water 200 ml 200 ml IV Total 750 ml 843 ml Tube Feeding 660 ml 660 ml Output Urine Total 875 ml 300 ml # Voids 200 # Bowel Movements 1 2 Laboratory Tests 07/23/17 14:40: White Blood Count 6.8, Red Blood Count 2.90L, Hemoglobin 9.5L, Hematocrit 27.5L , Mean Corpuscular Volume 95, Mean Corpuscular Hemoglobin 32.7H, Mean Corpuscular Hemoglobin Concent 34.4, Red Cell Distribution Width 11.5L, Platelet Count 359, Mean Platelet Volume 7.5, Neutrophils (%) (Auto) 68.3, Lymphocytes (%) (Auto) 23.0, Monocytes (%) (Auto) 5.4, Eosinophils (%) (Auto) 2.1, Basophils (%) (Auto) 1.2, Sodium Level 139, Potassium Level 4.0, Chloride Level 101, Carbon Dioxide Level 31, Anion Gap 7, Blood Urea Nitrogen 17, Creatinine 0.6, Estimat Glomerular Filtration Rate > 60, Glucose Level 75, Calcium Level 9.8, Total Bilirubin 0.1L, Aspartate Amino Transf (AST/SGOT) 54H, Alanine Aminotransferase (ALT/SGPT) 54, Alkaline Phosphatase 86, Total Protein 7.3, Albumin 2.6L, Globulin 4.7, Albumin/Globulin Ratio 0.6L Height (Feet): 5 Height (Inches): 6.00 Weight (Pounds): 120 General Appearance: no apparent distress Neck: stiff neck Cardiovascular: normal rate, regular rhythm Respiratory/Chest: decreased breath sounds Abdomen: other - PEG Genitourinary/Rectal: other - CARPENTER Neurologic: unresponsive Hannah Johnson N.P. Jul 23, 2017 17:34
[2017-07-24] VITALS: BP 158/104
[2017-07-24 04:00] VITALS: BP 141/93
[2017-07-24] MEDS: D5W w/KCl 20mEq 1,000 ML IV SCH ×2 (05:01→18:03)
[2017-07-24 05:22] LABS: BASOPHILS % (AUTO) 0.8 % (0.0-2.0); EOSINOPHILS % (AUTO) 0.4 % (0.0-3.0); HEMATOCRIT 28.7 % (42.0-52.0); HEMOGLOBIN 9.5 G/DL (14.2-18.0); LYMPHOCYTES % (AUTO) 14.6 % (20.0-45.0); MEAN CORPUSCULAR VOLUME 96 FL (80-99); MONOCYTES % (AUTO) 7.1 % (1.0-10.0); NEUTROPHILS % (AUTO) 77.1 % (45.0-75.0); PLATELET COUNT 384 K/UL (150-450); RED BLOOD COUNT 2.98 M/UL (4.70-6.10); RED CELL DISTRIBUTION WIDTH 11.6 % (11.6-14.8); WHITE BLOOD COUNT 8.5 K/UL (4.8-10.8)
[2017-07-24 05:36] LABS: ANION GAP 7 mmol/L (5-15); BLOOD UREA NITROGEN 19 mg/dL (7-18); CALCIUM 10.1 MG/DL (8.5-10.1); CARBON DIOXIDE 31 MMOL/L (21-32); CHLORIDE 99 MMOL/L (98-107); CREATININE 0.6 MG/DL (0.55-1.30); POTASSIUM 4.8 MMOL/L (3.5-5.1); SODIUM 137 MMOL/L (136-145)
[2017-07-24] MEDS: NovoLOG Insulin Flexpen SUBQ SCH ×4 (06:04→23:58)
[2017-07-24 08:00] VITALS: BP 144/101
[2017-07-24] MEDS: Losartan 50mg tab GT SCH ×2 (08:39→21:00)
[2017-07-24] MEDS: Levemir Flexpen SUBQ SCH ×2 (08:40→21:11)
--- NOTE | 2017-07-24 10:31 | Pulmonology Progress Note ---
Assessment/Plan Assessment/Plan IMPRESSION: 1. Respiratory failure; extubated 2. Cannabis usage. 3. Diabetic ketoacidosis. 4. Troponin leak. 5. Tachycardia. 6. Anoxic brain injury DISCUSSION: Continue present management and care. now extubated Poor prognosis Remains on supplemental O2; now with lower FiO2; on 2-4L/min ABG adequate Continue oral airway/suctioning CXR clear Subjective Interval Events: none Constitutional: Reports: no symptoms HEENT: Repors: no symptoms Respiratory: Reports: no symptoms Cardiovascular: Reports: no symptoms Allergies: Coded Allergies: No Known Allergies (Unverified , 06/15/17) Objective Last 24 Hour Vital Signs Date Time Temp Pulse Resp B/P (MAP) Pulse Ox O2 Delivery O2 Flow Rate FiO2 07/24/17 08:39 144/101 07/24/17 08:00 104 07/24/17 08:00 98.3 108 21 144/101 100 Nasal Cannula 3.0 07/24/17 04:00 98.6 100 18 141/93 100 Nasal Cannula 3.0 07/24/17 04:00 95 07/24/17 03:40 Nasal Cannula 3.0 32 07/24/17 03:40 100 Nasal Cannula 3.0 32 07/24/17 00:25 99.0 07/24/17 00:00 121 07/24/17 00:00 99.9 108 22 158/104 100 Nasal Cannula 3.0 07/23/17 23:55 100.4 07/23/17 20:38 142/73 07/23/17 20:00 97.9 114 20 136/92 100 Nasal Cannula 3.0 07/23/17 20:00 109 07/23/17 16:00 98.3 111 21 125/86 100 Nasal Cannula 3.0 07/23/17 16:00 94 07/23/17 12:00 99.1 112 21 129/91 100 Nasal Cannula 3.0 07/23/17 12:00 106 Intake and Output 07/23/17 07/24/17 19:00 07:00 Intake Total 1715 ml 1670 ml Output Total 600 ml 750 ml Balance 1115 ml 920 ml Free Water 100 ml 200 ml IV Total 900 ml 750 ml Tube Feeding 715 ml 660 ml Other 60 ml Output Urine Total 600 ml 750 ml # Bowel Movements 4 2 General Appearance: no acute distress HEENT: normocephalic Respiratory/Chest: chest wall non-tender, lungs clear Cardiovascular: normal peripheral pulses, normal rate Abdomen: normal bowel sounds Laboratory Tests 07/23/17 14:40: White Blood Count 6.8, Red Blood Count 2.90L, Hemoglobin 9.5L, Hematocrit 27.5L , Mean Corpuscular Volume 95, Mean Corpuscular Hemoglobin 32.7H, Mean Corpuscular Hemoglobin Concent 34.4, Red Cell Distribution Width 11.5L, Platelet Count 359, Mean Platelet Volume 7.5, Neutrophils (%) (Auto) 68.3, Lymphocytes (%) (Auto) 23.0, Monocytes (%) (Auto) 5.4, Eosinophils (%) (Auto) 2.1, Basophils (%) (Auto) 1.2, Sodium Level 139, Potassium Level 4.0, Chloride Level 101, Carbon Dioxide Level 31, Anion Gap 7, Blood Urea Nitrogen 17, Creatinine 0.6, Estimat Glomerular Filtration Rate > 60, Glucose Level 75, Calcium Level 9.8, Total Bilirubin 0.1L, Aspartate Amino Transf (AST/SGOT) 54H, Alanine Aminotransferase (ALT/SGPT) 54, Alkaline Phosphatase 86, Total Protein 7.3, Albumin 2.6L, Globulin 4.7, Albumin/Globulin Ratio 0.6L 07/24/17 03:40: White Blood Count 8.5, Red Blood Count 2.98L, Hemoglobin 9.5L, Hematocrit 28.7L , Mean Corpuscular Volume 96, Mean Corpuscular Hemoglobin 31.8H, Mean Corpuscular Hemoglobin Concent 33.0, Red Cell Distribution Width 11.6, Platelet Count 384, Mean Platelet Volume 7.4, Neutrophils (%) (Auto) 77.1H, Lymphocytes ( %) (Auto) 14.6L, Monocytes (%) (Auto) 7.1, Eosinophils (%) (Auto) 0.4, Basophils (%) (Auto) 0.8, Sodium Level 137, Potassium Level 4.8, Chloride Level 99, Carbon Dioxide Level 31, Anion Gap 7, Blood Urea Nitrogen 19H, Creatinine 0.6, Estimat Glomerular Filtration Rate > 60, Glucose Level 217#H, Calcium Level 10.1 Current Medications Medications (Trade) Dose Ordered Sig/Conrado Route PRN Reason Start Time Stop Time Status Last Admin Dose Admin Acetaminophen (Tylenol) 500 mg Q6HR PRN GT Mild Pain/Temp > 100.5 07/20/17 13:45 08/19/17 13:44 07/23/17 23:55 Clonidine HCl (Catapres Tab) 0.1 mg Q2H PRN GT For High Blood Pressure 07/20/17 14:00 08/19/17 13:59 Collagenase (Santyl) 1 applic BEDTIME TOPIC 07/19/17 21:00 08/12/17 14:59 07/23/17 20:39 Dextrose (Dextrose 50%) STAT PRN IV Hypoglycemia 07/01/17 22:30 07/29/17 22:29 07/12/17 03:56 Dextrose/ Electrolytes 1,000 ml @ 75 mls/hr [id number] IV 07/08/17 15:00 08/07/17 14:59 07/24/17 05:01 Insulin Aspart (NovoLOG) Q6HR SUBQ 07/16/17 06:00 08/05/17 19:29 07/24/17 06:04 Insulin Detemir (Levemir) 23 units Q12HR SUBQ 07/16/17 21:00 08/15/17 20:59 07/24/17 08:40 Losartan Potassium (Cozaar) 50 mg EVERY 12 HOURS GT 07/20/17 21:00 08/19/17 20:59 07/24/17 08:39 Paulo Floyd MD Jul 24, 2017 10:31
[2017-07-24 12:00] VITALS: BP 138/94
--- NOTE | 2017-07-24 14:01 | Infectious Diseases Prog Note ---
Assessment/Plan Problems: (1) Pneumonia Assessment & Plan: with Acinetobacter baumannii , S/P ceftazidime for two weeks , improved . continue aspiration precaution and suctioning to avoid further aspiration , may benefit from tracheostomy. repeated CXR for follow up is stable (2) Pancreatitis Assessment & Plan: improved , monitor lipase, GI is following, restarted on tube feeding. (3) Cardiopulmonary arrest Assessment & Plan: was extubated from mechanical ventilation , as per family request and made DNR and started on morphin drip, but family changed his code status to full code , he is on tele monitor , cardiology is following , may need tracheostomy due to large amount of secretions , had PEG placement . (4) Anoxic cerebral edema Assessment & Plan: with no improvement, has poor prognosis , no tracheostomy , or PEG tube placement as per family , now full code as per family request , but postural and spastic and unresponsive . (5) Dysphagia Assessment & Plan: he received permanent tube feeding for nutritional support , family wants to proceed with full support (6) Excessive salivation Assessment & Plan: watch out for aspiration, keep oral suctioning Subjective ROS Limited/Unobtainable: Yes Allergies: Coded Allergies: No Known Allergies (Unverified , 06/15/17) Subjective he is still unresponsive , on high flow oxygen , has large amount of saliva , postural and spastic in the lower extremities , doesn't follow commands , afebrile .opens eyes spontaneously on/off . doesn't track. had permanent PEG tube placed Objective Vital Signs Last 24 Hour Vital Signs Date Time Temp Pulse Resp B/P (MAP) Pulse Ox O2 Delivery O2 Flow Rate FiO2 07/24/17 12:00 98 07/24/17 12:00 98.3 109 20 138/94 100 Nasal Cannula 3.0 07/24/17 08:39 144/101 07/24/17 08:00 104 07/24/17 08:00 98.3 108 21 144/101 100 Nasal Cannula 3.0 07/24/17 04:00 98.6 100 18 141/93 100 Nasal Cannula 3.0 07/24/17 04:00 95 07/24/17 03:40 Nasal Cannula 3.0 32 07/24/17 03:40 100 Nasal Cannula 3.0 32 07/24/17 00:25 99.0 07/24/17 00:00 121 07/24/17 00:00 99.9 108 22 158/104 100 Nasal Cannula 3.0 07/23/17 23:55 100.4 07/23/17 20:38 142/73 07/23/17 20:00 97.9 114 20 136/92 100 Nasal Cannula 3.0 07/23/17 20:00 109 07/23/17 16:00 98.3 111 21 125/86 100 Nasal Cannula 3.0 07/23/17 16:00 94 Height (Feet): 5 Height (Inches): 6.00 Weight (Pounds): 120 General Appearance: WD/WN, no acute distress HEENT: normocephalic, atraumatic, anicteric, mucous membranes moist, PERRL, pharynx normal, supple Respiratory/Chest: chest wall non-tender, lungs clear, normal breath sounds, no respiratory distress, no accessory muscle use, decreased breath sounds Cardiovascular: normal peripheral pulses, normal rate, regular rhythm, no gallop/murmur, no JVD Abdomen: normal bowel sounds, soft, non tender, no organomegaly, non distended , no mass, no scars Extremities: no cyanosis, no clubbing Skin: no rash, no lesions, ulcers Neurologic/Psychiatric: unresponsiveness Laboratory Tests Test 07/23/17 14:40 07/24/17 03:40 White Blood Count 6.8 K/UL (4.8-10.8) 8.5 K/UL (4.8-10.8) Red Blood Count 2.90 M/UL (4.70-6.10) L 2.98 M/UL (4.70-6.10) L Hemoglobin 9.5 G/DL (14.2-18.0) L 9.5 G/DL (14.2-18.0) L Hematocrit 27.5 % (42.0-52.0) L 28.7 % (42.0-52.0) L Mean Corpuscular Volume 95 FL (80-99) 96 FL (80-99) Mean Corpuscular Hemoglobin 32.7 PG (27.0-31.0) H 31.8 PG (27.0-31.0) H Mean Corpuscular Hemoglobin Concent 34.4 G/DL (32.0-36.0) 33.0 G/DL (32.0-36.0) Red Cell Distribution Width 11.5 % (11.6-14.8) L 11.6 % (11.6-14.8) Platelet Count 359 K/UL (150-450) 384 K/UL (150-450) Mean Platelet Volume 7.5 FL (6.5-10.1) 7.4 FL (6.5-10.1) Neutrophils (%) (Auto) 68.3 % (45.0-75.0) 77.1 % (45.0-75.0) H Lymphocytes (%) (Auto) 23.0 % (20.0-45.0) 14.6 % (20.0-45.0) L Monocytes (%) (Auto) 5.4 % (1.0-10.0) 7.1 % (1.0-10.0) Eosinophils (%) (Auto) 2.1 % (0.0-3.0) 0.4 % (0.0-3.0) Basophils (%) (Auto) 1.2 % (0.0-2.0) 0.8 % (0.0-2.0) Sodium Level 139 MMOL/L (136-145) 137 MMOL/L (136-145) Potassium Level 4.0 MMOL/L (3.5-5.1) 4.8 MMOL/L (3.5-5.1) Chloride Level 101 MMOL/L (98-107) 99 MMOL/L (98-107) Carbon Dioxide Level 31 MMOL/L (21-32) 31 MMOL/L (21-32) Anion Gap 7 mmol/L (5-15) 7 mmol/L (5-15) Blood Urea Nitrogen 17 mg/dL (7-18) 19 mg/dL (7-18) H Creatinine 0.6 MG/DL (0.55-1.30) 0.6 MG/DL (0.55-1.30) Estimat Glomerular Filtration Rate > 60 mL/min (>60) > 60 mL/min (>60) Glucose Level 75 MG/DL (74-106) 217 MG/DL (74-106) #H Calcium Level 9.8 MG/DL (8.5-10.1) 10.1 MG/DL (8.5-10.1) Total Bilirubin 0.1 MG/DL (0.2-1.0) L Aspartate Amino Transf (AST/SGOT) 54 U/L (15-37) H Alanine Aminotransferase (ALT/SGPT) 54 U/L (12-78) Alkaline Phosphatase 86 U/L (46-116) Total Protein 7.3 G/DL (6.4-8.2) Albumin 2.6 G/DL (3.4-5.0) L Globulin 4.7 g/dL Albumin/Globulin Ratio 0.6 (1.0-2.7) L Current Medications Medications (Trade) Dose Ordered Sig/Conrado Route PRN Reason Start Time Stop Time Status Last Admin Dose Admin Acetaminophen (Tylenol) 500 mg Q6HR PRN GT Mild Pain/Temp > 100.5 07/20/17 13:45 08/19/17 13:44 07/23/17 23:55 Clonidine HCl (Catapres Tab) 0.1 mg Q2H PRN GT For High Blood Pressure 07/20/17 14:00 08/19/17 13:59 Collagenase (Santyl) 1 applic BEDTIME TOPIC 07/19/17 21:00 08/12/17 14:59 07/23/17 20:39 Dextrose (Dextrose 50%) STAT PRN IV Hypoglycemia 07/01/17 22:30 07/29/17 22:29 07/12/17 03:56 Dextrose/ Electrolytes 1,000 ml @ 75 mls/hr [id number] IV 07/08/17 15:00 08/07/17 14:59 07/24/17 05:01 Insulin Aspart (NovoLOG) Q6HR SUBQ 07/16/17 06:00 08/05/17 19:29 07/24/17 11:55 Insulin Detemir (Levemir) 23 units Q12HR SUBQ 07/16/17 21:00 08/15/17 20:59 07/24/17 08:40 Losartan Potassium (Cozaar) 50 mg EVERY 12 HOURS GT 07/20/17 21:00 08/19/17 20:59 07/24/17 08:39 Saad Cummings M.D. Jul 24, 2017 14:01
--- NOTE | 2017-07-24 14:41 | GI Progress Note ---
Assessment/Plan Problems: (1) Anoxic cerebral edema ICD Codes: G93.6 - Cerebral edema; R09.02 - Hypoxemia SNOMED: 5088976, 810584282 (2) Transaminitis ICD Codes: R74.0 - Nonspecific elevation of levels of transaminase and lactic acid dehydrogenase [LDH] SNOMED: 493740419, 686819889 (3) Alcohol withdrawal ICD Codes: F10.239 - Alcohol dependence with withdrawal, unspecified SNOMED: 336797340 (4) Pancreatitis ICD Codes: K85.90 - Acute pancreatitis without necrosis or infection, unspecified SNOMED: 68713876 Status: stable Status Narrative Discussed with Dr. Rico. Assessment/Plan s/p PEG GTFs per RD electrolyte correction fu labs dc planning Subjective Subjective limited Objective Last 24 Hour Vital Signs Date Time Temp Pulse Resp B/P (MAP) Pulse Ox O2 Delivery O2 Flow Rate FiO2 07/24/17 12:00 98 07/24/17 12:00 98.3 109 20 138/94 100 Nasal Cannula 3.0 07/24/17 08:39 144/101 07/24/17 08:00 104 07/24/17 08:00 98.3 108 21 144/101 100 Nasal Cannula 3.0 07/24/17 04:00 98.6 100 18 141/93 100 Nasal Cannula 3.0 07/24/17 04:00 95 07/24/17 03:40 Nasal Cannula 3.0 32 07/24/17 03:40 100 Nasal Cannula 3.0 32 07/24/17 00:25 99.0 07/24/17 00:00 121 07/24/17 00:00 99.9 108 22 158/104 100 Nasal Cannula 3.0 07/23/17 23:55 100.4 07/23/17 20:38 142/73 07/23/17 20:00 97.9 114 20 136/92 100 Nasal Cannula 3.0 07/23/17 20:00 109 07/23/17 16:00 98.3 111 21 125/86 100 Nasal Cannula 3.0 07/23/17 16:00 94 Intake and Output 07/23/17 07/24/17 19:00 07:00 Intake Total 1715 ml 1670 ml Output Total 600 ml 750 ml Balance 1115 ml 920 ml Free Water 100 ml 200 ml IV Total 900 ml 750 ml Tube Feeding 715 ml 660 ml Other 60 ml Output Urine Total 600 ml 750 ml # Bowel Movements 4 2 Laboratory Tests Test 07/23/17 14:40 07/24/17 03:40 White Blood Count 6.8 K/UL (4.8-10.8) 8.5 K/UL (4.8-10.8) Red Blood Count 2.90 M/UL (4.70-6.10) L 2.98 M/UL (4.70-6.10) L Hemoglobin 9.5 G/DL (14.2-18.0) L 9.5 G/DL (14.2-18.0) L Hematocrit 27.5 % (42.0-52.0) L 28.7 % (42.0-52.0) L Mean Corpuscular Volume 95 FL (80-99) 96 FL (80-99) Mean Corpuscular Hemoglobin 32.7 PG (27.0-31.0) H 31.8 PG (27.0-31.0) H Mean Corpuscular Hemoglobin Concent 34.4 G/DL (32.0-36.0) 33.0 G/DL (32.0-36.0) Red Cell Distribution Width 11.5 % (11.6-14.8) L 11.6 % (11.6-14.8) Platelet Count 359 K/UL (150-450) 384 K/UL (150-450) Mean Platelet Volume 7.5 FL (6.5-10.1) 7.4 FL (6.5-10.1) Neutrophils (%) (Auto) 68.3 % (45.0-75.0) 77.1 % (45.0-75.0) H Lymphocytes (%) (Auto) 23.0 % (20.0-45.0) 14.6 % (20.0-45.0) L Monocytes (%) (Auto) 5.4 % (1.0-10.0) 7.1 % (1.0-10.0) Eosinophils (%) (Auto) 2.1 % (0.0-3.0) 0.4 % (0.0-3.0) Basophils (%) (Auto) 1.2 % (0.0-2.0) 0.8 % (0.0-2.0) Sodium Level 139 MMOL/L (136-145) 137 MMOL/L (136-145) Potassium Level 4.0 MMOL/L (3.5-5.1) 4.8 MMOL/L (3.5-5.1) Chloride Level 101 MMOL/L (98-107) 99 MMOL/L (98-107) Carbon Dioxide Level 31 MMOL/L (21-32) 31 MMOL/L (21-32) Anion Gap 7 mmol/L (5-15) 7 mmol/L (5-15) Blood Urea Nitrogen 17 mg/dL (7-18) 19 mg/dL (7-18) H Creatinine 0.6 MG/DL (0.55-1.30) 0.6 MG/DL (0.55-1.30) Estimat Glomerular Filtration Rate > 60 mL/min (>60) > 60 mL/min (>60) Glucose Level 75 MG/DL (74-106) 217 MG/DL (74-106) #H Calcium Level 9.8 MG/DL (8.5-10.1) 10.1 MG/DL (8.5-10.1) Total Bilirubin 0.1 MG/DL (0.2-1.0) L Aspartate Amino Transf (AST/SGOT) 54 U/L (15-37) H Alanine Aminotransferase (ALT/SGPT) 54 U/L (12-78) Alkaline Phosphatase 86 U/L (46-116) Total Protein 7.3 G/DL (6.4-8.2) Albumin 2.6 G/DL (3.4-5.0) L Globulin 4.7 g/dL Albumin/Globulin Ratio 0.6 (1.0-2.7) L Height (Feet): 5 Height (Inches): 6.00 Weight (Pounds): 120 General Appearance: lethargic Cardiovascular: normal rate Respiratory/Chest: normal breath sounds Abdominal Exam: soft Lashawn Mason N.P. Jul 24, 2017 14:41
[2017-07-24 16:00] VITALS: BP 132/84
--- NOTE | 2017-07-24 16:44 | Cardiac Electrophysiology PN ---
Assessment/Plan Assessment/Plan 1. Troponin leak due to renal failure. EF 60%. 2. Sinus tachy due to DKA and sepsis. Resolved. In NSR 3. S/P Respiratory failure with Terminal extubation. On oxygen. 4. Pneumonia on abx per Dr. Cummings 5. Pancreatitis. 6. ARF.Resolved 7. Marijuana use. 8. Suspect diffuse cerebral anoxia and edema with decorticate rigidity per Dr Cano. 9. Alcohol withdrawal. 10. Severe Hypernatremia. Resolved 11. Full code. 12. Dysphagia.S/P PEG 13. DNR, DNI 14. Placement issue DW RN Subjective Subjective No new events. RN at bedside.Still awaiting placement Objective Last 24 Hour Vital Signs Date Time Temp Pulse Resp B/P (MAP) Pulse Ox O2 Delivery O2 Flow Rate FiO2 07/24/17 16:00 116 07/24/17 12:00 98 07/24/17 12:00 98.3 109 20 138/94 100 Nasal Cannula 3.0 07/24/17 08:39 144/101 07/24/17 08:00 104 07/24/17 08:00 98.3 108 21 144/101 100 Nasal Cannula 3.0 07/24/17 04:00 98.6 100 18 141/93 100 Nasal Cannula 3.0 07/24/17 04:00 95 07/24/17 03:40 Nasal Cannula 3.0 32 07/24/17 03:40 100 Nasal Cannula 3.0 32 07/24/17 00:25 99.0 07/24/17 00:00 121 07/24/17 00:00 99.9 108 22 158/104 100 Nasal Cannula 3.0 07/23/17 23:55 100.4 07/23/17 20:38 142/73 07/23/17 20:00 97.9 114 20 136/92 100 Nasal Cannula 3.0 07/23/17 20:00 109 Intake and Output 07/23/17 07/24/17 19:00 07:00 Intake Total 1715 ml 1670 ml Output Total 600 ml 750 ml Balance 1115 ml 920 ml Free Water 100 ml 200 ml IV Total 900 ml 750 ml Tube Feeding 715 ml 660 ml Other 60 ml Output Urine Total 600 ml 750 ml # Bowel Movements 4 2 Laboratory Tests Test 07/24/17 03:40 White Blood Count 8.5 K/UL (4.8-10.8) Red Blood Count 2.98 M/UL (4.70-6.10) L Hemoglobin 9.5 G/DL (14.2-18.0) L Hematocrit 28.7 % (42.0-52.0) L Mean Corpuscular Volume 96 FL (80-99) Mean Corpuscular Hemoglobin 31.8 PG (27.0-31.0) H Mean Corpuscular Hemoglobin Concent 33.0 G/DL (32.0-36.0) Red Cell Distribution Width 11.6 % (11.6-14.8) Platelet Count 384 K/UL (150-450) Mean Platelet Volume 7.4 FL (6.5-10.1) Neutrophils (%) (Auto) 77.1 % (45.0-75.0) H Lymphocytes (%) (Auto) 14.6 % (20.0-45.0) L Monocytes (%) (Auto) 7.1 % (1.0-10.0) Eosinophils (%) (Auto) 0.4 % (0.0-3.0) Basophils (%) (Auto) 0.8 % (0.0-2.0) Sodium Level 137 MMOL/L (136-145) Potassium Level 4.8 MMOL/L (3.5-5.1) Chloride Level 99 MMOL/L (98-107) Carbon Dioxide Level 31 MMOL/L (21-32) Anion Gap 7 mmol/L (5-15) Blood Urea Nitrogen 19 mg/dL (7-18) H Creatinine 0.6 MG/DL (0.55-1.30) Estimat Glomerular Filtration Rate > 60 mL/min (>60) Glucose Level 217 MG/DL (74-106) #H Calcium Level 10.1 MG/DL (8.5-10.1) Objective HEAD AND NECK: No JVD. LUNGS: Clear. CARDIOVASCULAR: Regular S1 and S2 with no gallop or murmur. ABDOMEN: PEG in place EXTREMITIES: No pitting edema. ALBERT ROWAN Jul 24, 2017 16:44
[2017-07-24 20:00] VITALS: BP 132/81
--- NOTE | 2017-07-24 23:58 | Nephrology Progress Note ---
Assessment/Plan Problem List: (1) Hyponatremia Assessment: resolved. (2) Sepsis Assessment: improving. (3) Alcohol withdrawal (4) Pneumonia Assessment: resolving. (5) Cardiopulmonary arrest (6) Metabolic acidosis Assessment: resolved. (7) DKA (diabetic ketoacidosis) Assessment: resolved. (8) Transaminitis (9) Hypokalemia (10) Hypernatremia Assessment: resolved. (11) Anoxic encephalopathy syndrome (12) Anoxic cerebral edema (13) Shock liver (14) Fever Assessment: resolved. (15) Respiratory distress (16) Pancreatitis Assessment: resolved (17) Elevated troponin Plan pulm following. FULL CODE. S/p PEG. Monitor off abx. cardio and neuro following. d/w RN. monitor labs. d/c planning - snf placement pending. Subjective Subjective eyes open but unable to follow commands. Objective Objective Last 24 Hour Vital Signs Date Time Temp Pulse Resp B/P (MAP) Pulse Ox O2 Delivery O2 Flow Rate FiO2 07/24/17 21:00 132/81 07/24/17 20:01 104 07/24/17 20:00 97.9 90 20 132/81 100 Nasal Cannula 3.0 07/24/17 16:00 99.2 106 20 132/84 100 Nasal Cannula 3.0 07/24/17 16:00 116 07/24/17 12:00 98 07/24/17 12:00 98.3 109 20 138/94 100 Nasal Cannula 3.0 07/24/17 08:39 144/101 07/24/17 08:00 104 07/24/17 08:00 98.3 108 21 144/101 100 Nasal Cannula 3.0 07/24/17 04:00 98.6 100 18 141/93 100 Nasal Cannula 3.0 07/24/17 04:00 95 07/24/17 03:40 Nasal Cannula 3.0 32 07/24/17 03:40 100 Nasal Cannula 3.0 32 07/24/17 00:25 99.0 07/24/17 00:00 121 07/24/17 00:00 99.9 108 22 158/104 100 Nasal Cannula 3.0 Intake and Output 07/23/17 07/24/17 19:00 07:00 Intake Total 1715 ml 1670 ml Output Total 600 ml 750 ml Balance 1115 ml 920 ml Free Water 100 ml 200 ml IV Total 900 ml 750 ml Tube Feeding 715 ml 660 ml Other 60 ml Output Urine Total 600 ml 750 ml # Bowel Movements 4 2 Laboratory Tests 07/24/17 03:40: White Blood Count 8.5, Red Blood Count 2.98L, Hemoglobin 9.5L, Hematocrit 28.7L , Mean Corpuscular Volume 96, Mean Corpuscular Hemoglobin 31.8H, Mean Corpuscular Hemoglobin Concent 33.0, Red Cell Distribution Width 11.6, Platelet Count 384, Mean Platelet Volume 7.4, Neutrophils (%) (Auto) 77.1H, Lymphocytes ( %) (Auto) 14.6L, Monocytes (%) (Auto) 7.1, Eosinophils (%) (Auto) 0.4, Basophils (%) (Auto) 0.8, Sodium Level 137, Potassium Level 4.8, Chloride Level 99, Carbon Dioxide Level 31, Anion Gap 7, Blood Urea Nitrogen 19H, Creatinine 0.6, Estimat Glomerular Filtration Rate > 60, Glucose Level 217#H, Calcium Level 10.1 Height (Feet): 5 Height (Inches): 6.00 Weight (Pounds): 120 General Appearance: no apparent distress Cardiovascular: normal peripheral pulses, normal rate, regular rhythm Respiratory/Chest: lungs clear Abdomen: non tender, soft Neurologic: unresponsive REMIGIO KNOX Jul 24, 2017 23:58
[2017-07-25] VITALS: BP 148/88
[2017-07-25 04:00] VITALS: BP 152/96
[2017-07-25] MEDS: NovoLOG Insulin Flexpen SUBQ SCH ×4 (05:57→23:17)
[2017-07-25 08:00] VITALS: BP 149/109
[2017-07-25] MEDS: D5W w/KCl 20mEq 1,000 ML IV SCH ×2 (08:45→20:59)
[2017-07-25] MEDS: Losartan 50mg tab GT SCH ×2 (08:46→21:01)
[2017-07-25] MEDS: Levemir Flexpen SUBQ SCH ×2 (08:49→20:59)
--- NOTE | 2017-07-25 09:42 | Pulmonology Progress Note ---
Assessment/Plan Assessment/Plan IMPRESSION: 1. Respiratory failure; extubated 2. Cannabis usage. 3. Diabetic ketoacidosis. 4. Troponin leak. 5. Tachycardia. 6. Anoxic brain injury DISCUSSION: Continue present management and care. now extubated Poor prognosis Remains on supplemental O2; now with lower FiO2; on 2-4L/min ABG adequate Continue oral airway/suctioning CXR clear Subjective Interval Events: none Constitutional: Reports: no symptoms HEENT: Repors: no symptoms Respiratory: Reports: no symptoms Cardiovascular: Reports: no symptoms Gastrointestinal/Abdominal: Reports: no symptoms Allergies: Coded Allergies: No Known Allergies (Unverified , 06/15/17) Objective Last 24 Hour Vital Signs Date Time Temp Pulse Resp B/P (MAP) Pulse Ox O2 Delivery O2 Flow Rate FiO2 07/25/17 08:46 149/109 07/25/17 08:00 98.8 121 20 149/109 100 Nasal Cannula 3.0 07/25/17 04:00 97.7 105 20 152/96 100 Nasal Cannula 3.0 07/25/17 03:18 86 07/25/17 00:00 98.2 107 22 148/88 100 Nasal Cannula 3.0 07/24/17 23:25 109 07/24/17 21:00 132/81 07/24/17 20:01 104 07/24/17 20:00 97.9 90 20 132/81 100 Nasal Cannula 3.0 07/24/17 16:00 99.2 106 20 132/84 100 Nasal Cannula 3.0 07/24/17 16:00 116 07/24/17 12:00 98 07/24/17 12:00 98.3 109 20 138/94 100 Nasal Cannula 3.0 Intake and Output 07/24/17 07/25/17 19:00 07:00 Intake Total 1710 ml 1630 ml Output Total 600 ml 500 ml Balance 1110 ml 1130 ml Free Water 150 ml 200 ml IV Total 900 ml 825 ml Tube Feeding 660 ml 605 ml Output Urine Total 600 ml 500 ml # Bowel Movements 1 2 General Appearance: no acute distress HEENT: normocephalic Respiratory/Chest: chest wall non-tender, lungs clear Cardiovascular: normal peripheral pulses, normal rate Current Medications Medications (Trade) Dose Ordered Sig/Conrado Route PRN Reason Start Time Stop Time Status Last Admin Dose Admin Acetaminophen (Tylenol) 500 mg Q6HR PRN GT Mild Pain/Temp > 100.5 07/20/17 13:45 08/19/17 13:44 07/23/17 23:55 Clonidine HCl (Catapres Tab) 0.1 mg Q2H PRN GT For High Blood Pressure 07/20/17 14:00 08/19/17 13:59 Collagenase (Santyl) 1 applic BEDTIME TOPIC 07/19/17 21:00 08/12/17 14:59 07/24/17 21:12 Dextrose (Dextrose 50%) STAT PRN IV Hypoglycemia 07/01/17 22:30 07/29/17 22:29 07/12/17 03:56 Dextrose/ Electrolytes 1,000 ml @ 75 mls/hr [id number] IV 07/08/17 15:00 08/07/17 14:59 07/25/17 08:45 Insulin Aspart (NovoLOG) Q6HR SUBQ 07/16/17 06:00 08/05/17 19:29 07/25/17 05:57 Insulin Detemir (Levemir) 23 units Q12HR SUBQ 07/16/17 21:00 08/15/17 20:59 07/25/17 08:49 Losartan Potassium (Cozaar) 50 mg EVERY 12 HOURS GT 07/20/17 21:00 08/19/17 20:59 07/25/17 08:46 Paulo Floyd MD Jul 25, 2017 09:42
--- NOTE | 2017-07-25 11:52 | GI Progress Note ---
Assessment/Plan Problems: (1) Anoxic cerebral edema ICD Codes: G93.6 - Cerebral edema; R09.02 - Hypoxemia SNOMED: 9082992, 327638456 (2) Transaminitis ICD Codes: R74.0 - Nonspecific elevation of levels of transaminase and lactic acid dehydrogenase [LDH] SNOMED: 094867613, 200249295 (3) Alcohol withdrawal ICD Codes: F10.239 - Alcohol dependence with withdrawal, unspecified SNOMED: 725417141 (4) Pancreatitis ICD Codes: K85.90 - Acute pancreatitis without necrosis or infection, unspecified SNOMED: 69466604 Status: unchanged Status Narrative Discussed with Dr. Rico. Assessment/Plan s/p PEG GTFs per RD electrolyte correction fu labs dc planning Subjective Subjective limited Objective Last 24 Hour Vital Signs Date Time Temp Pulse Resp B/P (MAP) Pulse Ox O2 Delivery O2 Flow Rate FiO2 07/25/17 08:46 149/109 07/25/17 08:00 118 07/25/17 08:00 98.8 121 20 149/109 100 Nasal Cannula 3.0 07/25/17 04:00 97.7 105 20 152/96 100 Nasal Cannula 3.0 07/25/17 03:18 86 07/25/17 00:00 98.2 107 22 148/88 100 Nasal Cannula 3.0 07/24/17 23:25 109 07/24/17 21:00 132/81 07/24/17 20:01 104 07/24/17 20:00 97.9 90 20 132/81 100 Nasal Cannula 3.0 07/24/17 16:00 99.2 106 20 132/84 100 Nasal Cannula 3.0 07/24/17 16:00 116 07/24/17 12:00 98 07/24/17 12:00 98.3 109 20 138/94 100 Nasal Cannula 3.0 Intake and Output 07/24/17 07/25/17 19:00 07:00 Intake Total 1710 ml 1630 ml Output Total 600 ml 500 ml Balance 1110 ml 1130 ml Free Water 150 ml 200 ml IV Total 900 ml 825 ml Tube Feeding 660 ml 605 ml Output Urine Total 600 ml 500 ml # Bowel Movements 1 2 Height (Feet): 5 Height (Inches): 6.00 Weight (Pounds): 120 General Appearance: no apparent distress Abdominal Exam: GT site - c/d/i Lashawn Mason N.P. Jul 25, 2017 11:52
[2017-07-25 12:00] VITALS: BP 121/84
--- NOTE | 2017-07-25 14:25 | Infectious Diseases Prog Note ---
Assessment/Plan Problems: (1) Pneumonia Assessment & Plan: with Acinetobacter baumannii , S/P ceftazidime for two weeks , improved . continue aspiration precaution and suctioning to avoid further aspiration , may benefit from tracheostomy. repeated CXR for follow up is stable (2) Pancreatitis Assessment & Plan: improved , monitor lipase, GI is following, restarted on tube feeding. (3) Cardiopulmonary arrest Assessment & Plan: was extubated from mechanical ventilation , as per family request and made DNR and started on morphin drip, but family changed his code status to full code , he is on tele monitor , cardiology is following , may need tracheostomy due to large amount of secretions , had PEG placement . (4) Anoxic cerebral edema Assessment & Plan: with no improvement, has poor prognosis , no tracheostomy , or PEG tube placement as per family , now full code as per family request , but postural and spastic and unresponsive . (5) Dysphagia Assessment & Plan: he received permanent tube feeding for nutritional support , family wants to proceed with full support (6) Excessive salivation Assessment & Plan: watch out for aspiration, keep oral suctioning Subjective Allergies: Coded Allergies: No Known Allergies (Unverified , 06/15/17) Subjective he is still unresponsive , on high flow oxygen , has large amount of saliva , postural and spastic in the lower extremities , doesn't follow commands , afebrile .opens eyes spontaneously on/off . doesn't track. had permanent PEG tube placed Objective Vital Signs Last 24 Hour Vital Signs Date Time Temp Pulse Resp B/P (MAP) Pulse Ox O2 Delivery O2 Flow Rate FiO2 07/25/17 12:00 97.7 95 18 121/84 100 Nasal Cannula 3.0 07/25/17 11:38 100 07/25/17 08:46 149/109 07/25/17 08:00 118 07/25/17 08:00 98.8 121 20 149/109 100 Nasal Cannula 3.0 07/25/17 04:00 97.7 105 20 152/96 100 Nasal Cannula 3.0 07/25/17 03:18 86 07/25/17 00:00 98.2 107 22 148/88 100 Nasal Cannula 3.0 07/24/17 23:25 109 07/24/17 21:00 132/81 07/24/17 20:01 104 07/24/17 20:00 97.9 90 20 132/81 100 Nasal Cannula 3.0 07/24/17 16:00 99.2 106 20 132/84 100 Nasal Cannula 3.0 07/24/17 16:00 116 Height (Feet): 5 Height (Inches): 6.00 Weight (Pounds): 120 General Appearance: WD/WN, no acute distress HEENT: normocephalic, atraumatic, anicteric, mucous membranes moist, PERRL Respiratory/Chest: chest wall non-tender, lungs clear, normal breath sounds, no respiratory distress, no accessory muscle use Cardiovascular: normal peripheral pulses, normal rate, regular rhythm, no gallop/murmur, no JVD Abdomen: normal bowel sounds, soft, non tender, no organomegaly, non distended , no mass, no scars Extremities: no cyanosis, no clubbing Skin: no rash, no lesions, no ulcers Neurologic/Psychiatric: alert, oriented x 3 Lymphatic: no neck adenopathy, no groin adenopathy Current Medications Medications (Trade) Dose Ordered Sig/Conrado Route PRN Reason Start Time Stop Time Status Last Admin Dose Admin Acetaminophen (Tylenol) 500 mg Q6HR PRN GT Mild Pain/Temp > 100.5 07/20/17 13:45 08/19/17 13:44 07/23/17 23:55 Clonidine HCl (Catapres Tab) 0.1 mg Q2H PRN GT For High Blood Pressure 07/20/17 14:00 08/19/17 13:59 Collagenase (Santyl) 1 applic BEDTIME TOPIC 07/19/17 21:00 08/12/17 14:59 07/24/17 21:12 Dextrose (Dextrose 50%) STAT PRN IV Hypoglycemia 07/01/17 22:30 07/29/17 22:29 07/12/17 03:56 Dextrose/ Electrolytes 1,000 ml @ 75 mls/hr [id number] IV 07/08/17 15:00 08/07/17 14:59 07/25/17 08:45 Insulin Aspart (NovoLOG) Q6HR SUBQ 07/16/17 06:00 08/05/17 19:29 07/25/17 12:29 Insulin Detemir (Levemir) 23 units Q12HR SUBQ 07/16/17 21:00 08/15/17 20:59 07/25/17 08:49 Losartan Potassium (Cozaar) 50 mg EVERY 12 HOURS GT 07/20/17 21:00 08/19/17 20:59 07/25/17 08:46 Saad Cummings M.D. Jul 25, 2017 14:25
--- NOTE | 2017-07-25 15:11 | Cardiac Electrophysiology PN ---
Assessment/Plan Assessment/Plan 1. Troponin leak due to renal failure. EF 60%. 2. Sinus tachy due to DKA and sepsis. In NSR 3. S/P Respiratory failure with Terminal extubation. On oxygen. 4. Pneumonia on abx 5. Pancreatitis. 6. ARF.Resolved 7. Marijuana use. 8. Suspect diffuse cerebral anoxia and edema with decorticate rigidity 9. Alcohol withdrawal. 10. Severe Hypernatremia. Resolved 11. Full code. 12. Dysphagia.S/P PEG 13. DNR, DNI 14. Placement issue DW RN Subjective Subjective No new events. RN at bedside.Placement in progress. Objective Last 24 Hour Vital Signs Date Time Temp Pulse Resp B/P (MAP) Pulse Ox O2 Delivery O2 Flow Rate FiO2 07/25/17 12:00 97.7 95 18 121/84 100 Nasal Cannula 3.0 07/25/17 11:38 100 07/25/17 08:46 149/109 07/25/17 08:00 118 07/25/17 08:00 98.8 121 20 149/109 100 Nasal Cannula 3.0 07/25/17 04:00 97.7 105 20 152/96 100 Nasal Cannula 3.0 07/25/17 03:18 86 07/25/17 00:00 98.2 107 22 148/88 100 Nasal Cannula 3.0 07/24/17 23:25 109 07/24/17 21:00 132/81 07/24/17 20:01 104 07/24/17 20:00 97.9 90 20 132/81 100 Nasal Cannula 3.0 07/24/17 16:00 99.2 106 20 132/84 100 Nasal Cannula 3.0 07/24/17 16:00 116 Intake and Output 07/24/17 07/25/17 19:00 07:00 Intake Total 1710 ml 1630 ml Output Total 600 ml 500 ml Balance 1110 ml 1130 ml Free Water 150 ml 200 ml IV Total 900 ml 825 ml Tube Feeding 660 ml 605 ml Output Urine Total 600 ml 500 ml # Bowel Movements 1 2 Objective HEAD AND NECK: No JVD. LUNGS: Clear. CARDIOVASCULAR: Regular S1 and S2 with no gallop or murmur. ABDOMEN: PEG in place EXTREMITIES: No pitting edema. ALBERT ROWAN Jul 25, 2017 15:11
[2017-07-25 16:00] VITALS: BP 150/98
--- NOTE | 2017-07-25 19:43 | General Progress Note ---
Assessment/Plan Problem List: (1) DKA (diabetic ketoacidosis) ICD Codes: E13.10 - Other specified diabetes mellitus with ketoacidosis without coma SNOMED: 54221196, 121646279 Qualifiers: Qualified Codes: E10.11 - Type 1 diabetes mellitus with ketoacidosis with coma (2) Metabolic acidosis ICD Codes: E87.2 - Acidosis SNOMED: 65337586 (3) Cardiopulmonary arrest ICD Codes: I46.9 - Cardiac arrest, cause unspecified SNOMED: 548307715 Assessment/Plan continue Levemir 23 units bid continue NISS Subjective ROS Limited/Unobtainable: Yes Allergies: Coded Allergies: No Known Allergies (Unverified , 06/15/17) Subjective Item Value Date Time Bedside Blood Glucose 115 mg/dl 07/25/17 1816 Bedside Blood Glucose 255 mg/dl H 07/25/17 1229 Bedside Blood Glucose 166 mg/dl H 07/25/17 0849 Bedside Blood Glucose 368 mg/dl H 07/25/17 0600 Bedside Blood Glucose 325 mg/dl H 07/25/17 0000 events noted - interval notes reviewed Objective Last 24 Hour Vital Signs Date Time Temp Pulse Resp B/P (MAP) Pulse Ox O2 Delivery O2 Flow Rate FiO2 07/25/17 16:00 99.3 111 22 150/98 100 Nasal Cannula 3.0 07/25/17 15:13 103 07/25/17 12:00 97.7 95 18 121/84 100 Nasal Cannula 3.0 07/25/17 11:38 100 07/25/17 08:46 149/109 07/25/17 08:00 118 07/25/17 08:00 98.8 121 20 149/109 100 Nasal Cannula 3.0 07/25/17 04:00 97.7 105 20 152/96 100 Nasal Cannula 3.0 07/25/17 03:18 86 07/25/17 00:00 98.2 107 22 148/88 100 Nasal Cannula 3.0 07/24/17 23:25 109 07/24/17 21:00 132/81 07/24/17 20:01 104 07/24/17 20:00 97.9 90 20 132/81 100 Nasal Cannula 3.0 Intake and Output 07/24/17 07/25/17 19:00 07:00 Intake Total 1710 ml 1790 ml Output Total 600 ml 500 ml Balance 1110 ml 1290 ml Free Water 150 ml 230 ml IV Total 900 ml 900 ml Tube Feeding 660 ml 660 ml Output Urine Total 600 ml 500 ml # Bowel Movements 1 2 Height (Feet): 5 Height (Inches): 6.00 Weight (Pounds): 120 EENT: pale conjunctivae Neck: normal alignment Cardiovascular: normal rate Respiratory/Chest: lungs clear Abdomen: normal bowel sounds Objective Current Medications Medications (Trade) Dose Ordered Sig/Conrado Route PRN Reason Start Time Stop Time Status Last Admin Dose Admin Acetaminophen (Tylenol) 500 mg Q6HR PRN GT Mild Pain/Temp > 100.5 07/20/17 13:45 08/19/17 13:44 07/23/17 23:55 Clonidine HCl (Catapres Tab) 0.1 mg Q2H PRN GT For High Blood Pressure 07/20/17 14:00 08/19/17 13:59 Collagenase (Santyl) 1 applic BEDTIME TOPIC 07/19/17 21:00 08/12/17 14:59 07/24/17 21:12 Dextrose (Dextrose 50%) STAT PRN IV Hypoglycemia 07/01/17 22:30 07/29/17 22:29 07/12/17 03:56 Dextrose/ Electrolytes 1,000 ml @ 75 mls/hr [id number] IV 07/08/17 15:00 08/07/17 14:59 07/25/17 08:45 Insulin Aspart (NovoLOG) Q6HR SUBQ 07/16/17 06:00 08/05/17 19:29 07/25/17 18:16 Insulin Detemir (Levemir) 23 units Q12HR SUBQ 07/16/17 21:00 08/15/17 20:59 07/25/17 08:49 Losartan Potassium (Cozaar) 50 mg EVERY 12 HOURS GT 07/20/17 21:00 08/19/17 20:59 07/25/17 08:46 JADIEL MARCANO Jul 25, 2017 19:43
[2017-07-25 20:00] VITALS: BP_SYST 132; BP_SYST 141; BP_DIAS 87
--- NOTE | 2017-07-25 20:13 | Nephrology Progress Note ---
Assessment/Plan Problem List: (1) Hypernatremia Assessment: Improved (2) Hypokalemia Assessment: corrected (3) Fever (4) Acidosis (5) Respiratory distress (6) Pancreatitis (7) Elevated troponin (8) Alcohol withdrawal (9) Pneumonia (10) Sepsis (11) Cardiopulmonary arrest (12) Metabolic acidosis (13) DKA (diabetic ketoacidosis) (14) Renal failure Assessment: Improved (15) DNR (do not resuscitate) Plan Continue current treatment plan D5W+KCL@ 75cc/hr Monitor temp Suspect diffuse cerebral anoxia and edema with decorticate rigidity per Dr Cano. Monitor lytes, correct prn Monitor neuro status, f/u with neurology rec G-tube feeding per GI Strict glycemic control Monitor renal function on current abx Abx per ID Monitor intake and output Continue carpenter AM labs DC plan Subjective ROS Limited/Unobtainable: Yes Subjective Seen in [facility],unresponsive, in no apparent distress Objective Objective Last 24 Hour Vital Signs Date Time Temp Pulse Resp B/P (MAP) Pulse Ox O2 Delivery O2 Flow Rate FiO2 07/25/17 16:00 99.3 111 22 150/98 100 Nasal Cannula 3.0 07/25/17 15:13 103 07/25/17 12:00 97.7 95 18 121/84 100 Nasal Cannula 3.0 07/25/17 11:38 100 07/25/17 08:46 149/109 07/25/17 08:00 118 07/25/17 08:00 98.8 121 20 149/109 100 Nasal Cannula 3.0 07/25/17 04:00 97.7 105 20 152/96 100 Nasal Cannula 3.0 07/25/17 03:18 86 07/25/17 00:00 98.2 107 22 148/88 100 Nasal Cannula 3.0 07/24/17 23:25 109 07/24/17 21:00 132/81 Intake and Output 07/24/17 07/25/17 19:00 07:00 Intake Total 1710 ml 1790 ml Output Total 600 ml 500 ml Balance 1110 ml 1290 ml Free Water 150 ml 230 ml IV Total 900 ml 900 ml Tube Feeding 660 ml 660 ml Output Urine Total 600 ml 500 ml # Bowel Movements 1 2 Height (Feet): 5 Height (Inches): 6.00 Weight (Pounds): 120 General Appearance: no apparent distress Neck: stiff neck Cardiovascular: normal rate, no JVD Respiratory/Chest: normal breath sounds Abdomen: soft, no organomegaly Extremities: trace edema Neurologic: unresponsive Hannah Johnson N.P. Jul 25, 2017 20:13
[2017-07-26] VITALS (7 sets, daily range): BP systolic 113–147; BP diastolic 73–96
[2017-07-26] MEDS: NovoLOG Insulin Flexpen SUBQ SCH ×4 (06:15→23:46)
--- NOTE | 2017-07-26 08:13 | Pulmonology Progress Note ---
Assessment/Plan Assessment/Plan IMPRESSION: 1. Respiratory failure; extubated 2. Cannabis usage. 3. Diabetic ketoacidosis. 4. Troponin leak. 5. Tachycardia. 6. Anoxic brain injury DISCUSSION: Continue present management and care. now extubated Poor prognosis Remains on supplemental O2; now with lower FiO2; on 2-4L/min ABG adequate Continue oral airway/suctioning Subjective Interval Events: none reported Constitutional: Reports: no symptoms HEENT: Repors: no symptoms Respiratory: Reports: no symptoms Cardiovascular: Reports: no symptoms Gastrointestinal/Abdominal: Reports: no symptoms Allergies: Coded Allergies: No Known Allergies (Unverified , 06/15/17) Objective Last 24 Hour Vital Signs Date Time Temp Pulse Resp B/P (MAP) Pulse Ox O2 Delivery O2 Flow Rate FiO2 07/26/17 07:56 98.9 87 19 131/73 100 Nasal Cannula 3.0 07/26/17 04:00 98 07/26/17 04:00 97.7 98 20 136/94 100 Nasal Cannula 3.0 07/26/17 00:00 87 07/26/17 00:00 97.9 91 20 128/87 100 Nasal Cannula 3.0 07/25/17 21:01 141/87 07/25/17 21:00 Nasal Cannula 2.0 28 07/25/17 21:00 98 Nasal Cannula 2.0 28 07/25/17 20:00 81 07/25/17 20:00 98.2 91 20 141/87 100 Nasal Cannula 3.0 07/25/17 16:00 99.3 111 22 150/98 100 Nasal Cannula 3.0 07/25/17 15:13 103 07/25/17 12:00 97.7 95 18 121/84 100 Nasal Cannula 3.0 07/25/17 11:38 100 07/25/17 08:46 149/109 Intake and Output 07/25/17 07/26/17 19:00 07:00 Intake Total 1390 ml 1688 ml Output Total 320 ml 400 ml Balance 1070 ml 1288 ml Free Water 200 ml IV Total 700 ml 823 ml Tube Feeding 660 ml 605 ml Other 30 ml 60 ml Output Urine Total 320 ml 400 ml General Appearance: no acute distress HEENT: normocephalic Respiratory/Chest: chest wall non-tender, lungs clear Cardiovascular: normal peripheral pulses, normal rate Abdomen: normal bowel sounds Current Medications Medications (Trade) Dose Ordered Sig/Conrado Route PRN Reason Start Time Stop Time Status Last Admin Dose Admin Acetaminophen (Tylenol) 500 mg Q6HR PRN GT Mild Pain/Temp > 100.5 07/20/17 13:45 08/19/17 13:44 07/23/17 23:55 Clonidine HCl (Catapres Tab) 0.1 mg Q2H PRN GT For High Blood Pressure 07/20/17 14:00 08/19/17 13:59 Collagenase (Santyl) 1 applic BEDTIME TOPIC 07/19/17 21:00 08/12/17 14:59 07/25/17 21:01 Dextrose (Dextrose 50%) STAT PRN IV Hypoglycemia 07/01/17 22:30 07/29/17 22:29 07/12/17 03:56 Dextrose/ Electrolytes 1,000 ml @ 75 mls/hr [id number] IV 07/08/17 15:00 08/07/17 14:59 07/25/17 20:59 Insulin Aspart (NovoLOG) Q6HR SUBQ 07/16/17 06:00 08/05/17 19:29 07/26/17 06:15 Insulin Detemir (Levemir) 23 units Q12HR SUBQ 07/16/17 21:00 08/15/17 20:59 07/25/17 20:59 Losartan Potassium (Cozaar) 50 mg EVERY 12 HOURS GT 07/20/17 21:00 08/19/17 20:59 07/25/17 21:01 Paulo Floyd MD Jul 26, 2017 08:13
[2017-07-26] MEDS: Losartan 50mg tab GT SCH ×2 (09:13→20:54)
[2017-07-26] MEDS: Levemir Flexpen SUBQ SCH ×2 (09:14→20:54)
[2017-07-26] MEDS: D5W w/KCl 20mEq 1,000 ML IV SCH ×3 (09:14→21:35)
--- NOTE | 2017-07-26 10:33 | Cardiac Electrophysiology PN ---
Assessment/Plan Assessment/Plan 1. Troponin leak due to renal failure. EF 60%. 2. Sinus tachy due to DKA and sepsis. Still mildly tachy 3. S/P Respiratory failure with Terminal extubation. On oxygen. 4. Pneumonia on abx 5. Pancreatitis. 6. ARF.Resolved 7. Marijuana use. 8. Suspect diffuse cerebral anoxia and edema with decorticate rigidity 9. Alcohol withdrawal. 10. Severe Hypernatremia. Resolved 11. Dysphagia.S/P PEG 12. DNR, DNI DW RN Subjective Subjective No new events. RN at bedside. GT feeding Objective Last 24 Hour Vital Signs Date Time Temp Pulse Resp B/P (MAP) Pulse Ox O2 Delivery O2 Flow Rate FiO2 07/26/17 09:13 131/73 07/26/17 08:00 111 07/26/17 07:56 98.9 87 19 131/73 100 Nasal Cannula 3.0 07/26/17 04:00 98 07/26/17 04:00 97.7 98 20 136/94 100 Nasal Cannula 3.0 07/26/17 00:00 87 07/26/17 00:00 97.9 91 20 128/87 100 Nasal Cannula 3.0 07/25/17 21:01 141/87 07/25/17 21:00 Nasal Cannula 2.0 28 07/25/17 21:00 98 Nasal Cannula 2.0 28 07/25/17 20:00 81 07/25/17 20:00 98.2 91 20 141/87 100 Nasal Cannula 3.0 07/25/17 16:00 99.3 111 22 150/98 100 Nasal Cannula 3.0 07/25/17 15:13 103 07/25/17 12:00 97.7 95 18 121/84 100 Nasal Cannula 3.0 07/25/17 11:38 100 Intake and Output 07/25/17 07/26/17 19:00 07:00 Intake Total 1390 ml 1688 ml Output Total 320 ml 400 ml Balance 1070 ml 1288 ml Free Water 200 ml IV Total 700 ml 823 ml Tube Feeding 660 ml 605 ml Other 30 ml 60 ml Output Urine Total 320 ml 400 ml Objective HEAD AND NECK: No JVD. LUNGS: Clear. CARDIOVASCULAR: Tachy S1 and S2 with no gallop or murmur. ABDOMEN: PEG in place EXTREMITIES: No pitting edema. ALBERT ROWAN Jul 26, 2017 10:33
--- NOTE | 2017-07-26 10:36 | GI Progress Note ---
Assessment/Plan Problems: (1) Anoxic cerebral edema ICD Codes: G93.6 - Cerebral edema; R09.02 - Hypoxemia SNOMED: 6368259, 048705627 (2) Transaminitis ICD Codes: R74.0 - Nonspecific elevation of levels of transaminase and lactic acid dehydrogenase [LDH] SNOMED: 246728791, 391679936 (3) Alcohol withdrawal ICD Codes: F10.239 - Alcohol dependence with withdrawal, unspecified SNOMED: 045522836 (4) Pancreatitis ICD Codes: K85.90 - Acute pancreatitis without necrosis or infection, unspecified SNOMED: 91505338 Status: unchanged Status Narrative Discussed with Dr. Rico. Assessment/Plan s/p PEG GTFs per RD electrolyte correction fu labs dc planning Subjective Subjective limited Objective Last 24 Hour Vital Signs Date Time Temp Pulse Resp B/P (MAP) Pulse Ox O2 Delivery O2 Flow Rate FiO2 07/26/17 09:13 131/73 07/26/17 08:00 111 07/26/17 07:56 98.9 87 19 131/73 100 Nasal Cannula 3.0 07/26/17 04:00 98 07/26/17 04:00 97.7 98 20 136/94 100 Nasal Cannula 3.0 07/26/17 00:00 87 07/26/17 00:00 97.9 91 20 128/87 100 Nasal Cannula 3.0 07/25/17 21:01 141/87 07/25/17 21:00 Nasal Cannula 2.0 28 07/25/17 21:00 98 Nasal Cannula 2.0 28 07/25/17 20:00 81 07/25/17 20:00 98.2 91 20 141/87 100 Nasal Cannula 3.0 07/25/17 16:00 99.3 111 22 150/98 100 Nasal Cannula 3.0 07/25/17 15:13 103 07/25/17 12:00 97.7 95 18 121/84 100 Nasal Cannula 3.0 07/25/17 11:38 100 Intake and Output 07/25/17 07/26/17 19:00 07:00 Intake Total 1390 ml 1688 ml Output Total 320 ml 400 ml Balance 1070 ml 1288 ml Free Water 200 ml IV Total 700 ml 823 ml Tube Feeding 660 ml 605 ml Other 30 ml 60 ml Output Urine Total 320 ml 400 ml Height (Feet): 5 Height (Inches): 6.00 Weight (Pounds): 120 General Appearance: cachetic Cardiovascular: normal rate Respiratory/Chest: other Abdominal Exam: GT site - c/d/i Lashawn Mason N.P. Jul 26, 2017 10:36
--- NOTE | 2017-07-26 12:52 | Infectious Diseases Prog Note ---
Assessment/Plan Problems: (1) Pneumonia Assessment & Plan: due to Acinetobacter baumannii , S/P ceftazidime for two weeks , improved . continue aspiration precaution and suctioning to avoid further aspiration , may benefit from tracheostomy. continue to monitor labs and vitals , he is high risk for aspiration . keep HOB>30 degree (2) Cardiopulmonary arrest Assessment & Plan: was extubated from mechanical ventilation , as per family request and made DNR and started on morphin drip, but family changed his code status to full code , he is on tele monitor , cardiology is following , may need tracheostomy due to large amount of secretions , had PEG placement . (3) Anoxic cerebral edema Assessment & Plan: with no improvement, has poor prognosis , no tracheostomy , or PEG tube placement as per family , now full code as per family request , but postural and spastic and unresponsive . (4) Dysphagia Assessment & Plan: he received permanent tube feeding for nutritional support , family wants to proceed with full support (5) Excessive salivation Assessment & Plan: watch out for aspiration, keep oral suctioning . keep head of bed elevated all time Subjective ROS Limited/Unobtainable: Yes Allergies: Coded Allergies: No Known Allergies (Unverified , 06/15/17) Subjective he is unresponsive , on high flow oxygen , postural and spastic in the lower extremities , doesn't follow commands , afebrile .opens eyes spontaneously on/ off . doesn't track. had permanent PEG tube placed, no significant oral secretions Objective Vital Signs Last 24 Hour Vital Signs Date Time Temp Pulse Resp B/P (MAP) Pulse Ox O2 Delivery O2 Flow Rate FiO2 07/26/17 09:13 131/73 07/26/17 08:00 111 07/26/17 07:56 98.9 87 19 131/73 100 Nasal Cannula 3.0 07/26/17 04:00 98 07/26/17 04:00 97.7 98 20 136/94 100 Nasal Cannula 3.0 07/26/17 00:00 87 07/26/17 00:00 97.9 91 20 128/87 100 Nasal Cannula 3.0 07/25/17 21:01 141/87 07/25/17 21:00 Nasal Cannula 2.0 28 07/25/17 21:00 98 Nasal Cannula 2.0 28 07/25/17 20:00 81 07/25/17 20:00 98.2 91 20 141/87 100 Nasal Cannula 3.0 07/25/17 16:00 99.3 111 22 150/98 100 Nasal Cannula 3.0 07/25/17 15:13 103 Height (Feet): 5 Height (Inches): 6.00 Weight (Pounds): 120 General Appearance: WD/WN, no acute distress HEENT: normocephalic, atraumatic, anicteric, mucous membranes moist Respiratory/Chest: chest wall non-tender, lungs clear, normal breath sounds, no respiratory distress, no accessory muscle use Cardiovascular: normal peripheral pulses, normal rate, regular rhythm, no gallop/murmur, no JVD Abdomen: normal bowel sounds, soft, non tender, no organomegaly, non distended , no mass, no scars Extremities: no cyanosis, no clubbing Skin: no rash, no lesions, ulcers Neurologic/Psychiatric: unresponsiveness Current Medications Medications (Trade) Dose Ordered Sig/Conrado Route PRN Reason Start Time Stop Time Status Last Admin Dose Admin Acetaminophen (Tylenol) 500 mg Q6HR PRN GT Mild Pain/Temp > 100.5 07/20/17 13:45 08/19/17 13:44 07/23/17 23:55 Clonidine HCl (Catapres Tab) 0.1 mg Q2H PRN GT For High Blood Pressure 07/20/17 14:00 08/19/17 13:59 Collagenase (Santyl) 1 applic BEDTIME TOPIC 07/19/17 21:00 08/12/17 14:59 07/25/17 21:01 Dextrose (Dextrose 50%) STAT PRN IV Hypoglycemia 07/01/17 22:30 07/29/17 22:29 07/12/17 03:56 Dextrose/ Electrolytes 1,000 ml @ 75 mls/hr [id number] IV 07/08/17 15:00 08/07/17 14:59 07/26/17 09:14 Insulin Aspart (NovoLOG) Q6HR SUBQ 07/16/17 06:00 08/05/17 19:29 07/26/17 12:17 Insulin Detemir (Levemir) 23 units Q12HR SUBQ 07/16/17 21:00 08/15/17 20:59 07/26/17 09:14 Losartan Potassium (Cozaar) 50 mg EVERY 12 HOURS GT 07/20/17 21:00 08/19/17 20:59 07/26/17 09:13 Saad Cummings M.D. Jul 26, 2017 12:52
--- NOTE | 2017-07-26 22:45 | Nephrology Progress Note ---
Assessment/Plan Problem List: (1) Hyponatremia Assessment: resolved. (2) Sepsis Assessment: improving. (3) Alcohol withdrawal (4) Pneumonia Assessment: resolving. (5) Cardiopulmonary arrest (6) Metabolic acidosis Assessment: resolved. (7) DKA (diabetic ketoacidosis) Assessment: resolved. (8) Transaminitis (9) Hypokalemia (10) Hypernatremia Assessment: resolved. (11) Anoxic encephalopathy syndrome (12) Anoxic cerebral edema (13) Shock liver (14) Fever Assessment: resolved. (15) Respiratory distress (16) Pancreatitis Assessment: resolved (17) Elevated troponin Plan pulm following. FULL CODE. S/p PEG. Monitor off abx. cardio and neuro following. d/w RN. monitor labs. d/c planning - snf placement pending. Subjective Subjective eyes open but unable to follow commands. Objective Objective Last 24 Hour Vital Signs Date Time Temp Pulse Resp B/P (MAP) Pulse Ox O2 Delivery O2 Flow Rate FiO2 07/26/17 20:54 125/96 07/26/17 20:46 97.6 94 18 125/96 96 94 07/26/17 19:30 94 Nasal Cannula 2.0 28 07/26/17 19:30 Nasal Cannula 2.0 28 07/26/17 17:52 97.9 82 18 113/79 100 07/26/17 16:00 98.7 109 19 122/89 96 Nasal Cannula 3.0 07/26/17 12:00 98.2 116 19 147/95 97 Nasal Cannula 3.0 07/26/17 12:00 105 07/26/17 09:13 131/73 07/26/17 08:00 111 07/26/17 07:56 98.9 87 19 131/73 100 Nasal Cannula 3.0 07/26/17 04:00 98 07/26/17 04:00 97.7 98 20 136/94 100 Nasal Cannula 3.0 07/26/17 00:00 87 07/26/17 00:00 97.9 91 20 128/87 100 Nasal Cannula 3.0 Intake and Output 07/25/17 07/26/17 19:00 07:00 Intake Total 1390 ml 1848 ml Output Total 320 ml 400 ml Balance 1070 ml 1448 ml Free Water 230 ml IV Total 700 ml 898 ml Tube Feeding 660 ml 660 ml Other 30 ml 60 ml Output Urine Total 320 ml 400 ml Height (Feet): 5 Height (Inches): 6.00 Weight (Pounds): 120 REMIGIO KNOX Jul 26, 2017 22:45
[2017-07-27] VITALS (8 sets, daily range): BP systolic 125–146; BP diastolic 77–111
[2017-07-27] MEDS: NovoLOG Insulin Flexpen SUBQ SCH ×3 (05:48→17:15)
[2017-07-27] MEDS: Losartan 50mg tab GT SCH ×2 (08:08→20:28)
--- NOTE | 2017-07-27 08:35 | Pulmonology Progress Note ---
Assessment/Plan Assessment/Plan IMPRESSION: 1. Respiratory failure; extubated 2. Cannabis usage. 3. Diabetic ketoacidosis. 4. Troponin leak. 5. Tachycardia. 6. Anoxic brain injury DISCUSSION: Continue present management and care. now extubated Poor prognosis Remains on supplemental O2; now with lower FiO2; on 2-4L/min ABG adequate Continue oral airway/suctioning Subjective Interval Events: none Constitutional: Reports: no symptoms HEENT: Repors: no symptoms Respiratory: Reports: no symptoms Cardiovascular: Reports: no symptoms Gastrointestinal/Abdominal: Reports: no symptoms Allergies: Coded Allergies: No Known Allergies (Unverified , 06/15/17) Objective Last 24 Hour Vital Signs Date Time Temp Pulse Resp B/P (MAP) Pulse Ox O2 Delivery O2 Flow Rate FiO2 07/27/17 08:08 146/111 07/27/17 08:07 128 07/27/17 08:05 97.7 130 18 146/111 97 Nasal Cannula 3.0 07/27/17 04:30 99 Nasal Cannula 3.0 07/27/17 04:30 97.8 68 18 140/86 99 18 07/27/17 00:09 99 Nasal Cannula 3.0 07/27/17 00:09 97.8 103 18 143/95 99 103 07/26/17 20:54 125/96 07/26/17 20:46 96 Nasal Cannula 3.0 07/26/17 20:46 97.6 94 18 125/96 96 94 07/26/17 19:30 94 Nasal Cannula 2.0 28 07/26/17 19:30 Nasal Cannula 2.0 28 07/26/17 17:52 97.9 82 18 113/79 100 07/26/17 16:00 98.7 109 19 122/89 96 Nasal Cannula 3.0 07/26/17 12:00 98.2 116 19 147/95 97 Nasal Cannula 3.0 07/26/17 12:00 105 07/26/17 09:13 131/73 Intake and Output 07/26/17 07/27/17 19:00 07:00 Intake Total 1400 ml 1535 ml Balance 1400 ml 1535 ml Free Water 50 ml 200 ml IV Total 750 ml 675 ml Tube Feeding 550 ml 660 ml Other 50 ml General Appearance: no acute distress HEENT: normocephalic Respiratory/Chest: chest wall non-tender, lungs clear Cardiovascular: normal peripheral pulses, normal rate Abdomen: normal bowel sounds, soft, non tender Current Medications Medications (Trade) Dose Ordered Sig/Conrado Route PRN Reason Start Time Stop Time Status Last Admin Dose Admin Acetaminophen (Tylenol) 500 mg Q6H PRN GT Mild Pain/Temp > 100.5 07/26/17 18:00 08/25/17 17:59 Clonidine HCl (Catapres Tab) 0.1 mg Q2H PRN GT SBP > 170mmHg 07/26/17 18:00 08/19/17 13:59 Collagenase (Santyl) 1 applic BEDTIME TOPIC 07/26/17 21:00 08/12/17 14:59 Dextrose (Dextrose 50%) STAT PRN IV Hypoglycemia 07/26/17 18:30 07/29/17 18:29 07/26/17 18:29 Dextrose/ Electrolytes 1,000 ml @ 75 mls/hr [id number] IV 07/26/17 18:00 08/07/17 14:59 07/26/17 21:35 Insulin Aspart (NovoLOG) Q6HR SUBQ 07/26/17 18:45 08/05/17 18:44 07/27/17 05:48 Insulin Detemir (Levemir) 23 units Q12HR SUBQ 07/26/17 21:00 08/15/17 20:59 Losartan Potassium (Cozaar) 50 mg EVERY 12 HOURS GT 07/26/17 21:00 08/19/17 20:59 07/27/17 08:08 Paulo Floyd MD Jul 27, 2017 08:35
[2017-07-27] MEDS: Levemir Flexpen SUBQ SCH ×2 (09:06→20:30)
--- NOTE | 2017-07-27 09:10 | Cardiac Electrophysiology PN ---
Assessment/Plan Assessment/Plan 1. Troponin leak due to renal failure. EF 60%. 2. Sinus tachy due to DKA and sepsis. Still tachy. No fib or SVT. Treatment is underlying sepsis. Order stat labs 3. S/P Respiratory failure with Terminal extubation. On oxygen. 4. Pneumonia on abx 5. Pancreatitis. 6. ARF.Resolved 7. Marijuana use. 8. Suspect diffuse cerebral anoxia and edema with decorticate rigidity 9. Alcohol withdrawal. 10. Severe Hypernatremia. Resolved 11. Dysphagia.S/P PEG 12. DNR, DNI DW RN Subjective Subjective RN at bedside. GT feeding. Transferred to [facility]. Had tachy. Stat ECG showed sinus tach 120s. Objective Last 24 Hour Vital Signs Date Time Temp Pulse Resp B/P (MAP) Pulse Ox O2 Delivery O2 Flow Rate FiO2 07/27/17 08:08 146/111 07/27/17 08:07 128 07/27/17 08:05 97.7 130 18 146/111 97 Nasal Cannula 3.0 07/27/17 08:00 97.7 130 20 146/111 97 07/27/17 04:30 99 Nasal Cannula 3.0 07/27/17 04:30 97.8 68 18 140/86 99 18 07/27/17 00:09 99 Nasal Cannula 3.0 07/27/17 00:09 97.8 103 18 143/95 99 103 07/26/17 20:54 125/96 07/26/17 20:46 96 Nasal Cannula 3.0 07/26/17 20:46 97.6 94 18 125/96 96 94 07/26/17 19:30 94 Nasal Cannula 2.0 28 07/26/17 19:30 Nasal Cannula 2.0 28 07/26/17 17:52 97.9 82 18 113/79 100 07/26/17 16:00 98.7 109 19 122/89 96 Nasal Cannula 3.0 07/26/17 12:00 98.2 116 19 147/95 97 Nasal Cannula 3.0 07/26/17 12:00 105 07/26/17 09:13 131/73 Intake and Output 07/26/17 07/27/17 19:00 07:00 Intake Total 1400 ml 1535 ml Balance 1400 ml 1535 ml Free Water 50 ml 200 ml IV Total 750 ml 675 ml Tube Feeding 550 ml 660 ml Other 50 ml Objective HEAD AND NECK: No JVD. LUNGS: Clear. CARDIOVASCULAR: Tachy S1 and S2 with no gallop or murmur. ABDOMEN: PEG in place EXTREMITIES: No pitting edema. ALBERT ROWAN Jul 27, 2017 09:10
--- NOTE | 2017-07-27 10:52 | GI Progress Note ---
Assessment/Plan Problems: (1) Anoxic cerebral edema ICD Codes: G93.6 - Cerebral edema; R09.02 - Hypoxemia SNOMED: 8596684, 242737725 (2) Transaminitis ICD Codes: R74.0 - Nonspecific elevation of levels of transaminase and lactic acid dehydrogenase [LDH] SNOMED: 246745396, 754378246 (3) Alcohol withdrawal ICD Codes: F10.239 - Alcohol dependence with withdrawal, unspecified SNOMED: 737155315 (4) Pancreatitis ICD Codes: K85.90 - Acute pancreatitis without necrosis or infection, unspecified SNOMED: 73434124 Status: unchanged Status Narrative Discussed with Dr. Rico. Assessment/Plan s/p PEG GTFs per RD electrolyte correction fu labs dc planning Subjective Subjective limited Objective Last 24 Hour Vital Signs Date Time Temp Pulse Resp B/P (MAP) Pulse Ox O2 Delivery O2 Flow Rate FiO2 07/27/17 10:20 99 Room Air 07/27/17 09:46 99 Nasal Cannula 2.0 28 07/27/17 08:56 Nasal Cannula 2.0 28 07/27/17 08:08 146/111 07/27/17 08:07 128 07/27/17 08:05 97.7 130 18 146/111 97 Nasal Cannula 3.0 07/27/17 08:00 97.7 130 20 146/111 97 07/27/17 04:30 99 Nasal Cannula 3.0 07/27/17 04:30 97.8 68 18 140/86 99 18 07/27/17 00:09 99 Nasal Cannula 3.0 07/27/17 00:09 97.8 103 18 143/95 99 103 07/26/17 20:54 125/96 07/26/17 20:46 96 Nasal Cannula 3.0 07/26/17 20:46 97.6 94 18 125/96 96 94 07/26/17 19:30 94 Nasal Cannula 2.0 28 07/26/17 19:30 Nasal Cannula 2.0 28 07/26/17 17:52 97.9 82 18 113/79 100 07/26/17 16:00 98.7 109 19 122/89 96 Nasal Cannula 3.0 07/26/17 12:00 98.2 116 19 147/95 97 Nasal Cannula 3.0 07/26/17 12:00 105 Intake and Output 07/26/17 07/27/17 19:00 07:00 Intake Total 1400 ml 1535 ml Balance 1400 ml 1535 ml Free Water 50 ml 200 ml IV Total 750 ml 675 ml Tube Feeding 550 ml 660 ml Other 50 ml Height (Feet): 5 Height (Inches): 6.00 Weight (Pounds): 120 General Appearance: alert Cardiovascular: normal rate Respiratory/Chest: no respiratory distress Abdominal Exam: soft, GT site - c/d/i Lashawn Mason N.P. Jul 27, 2017 10:52
[2017-07-27] MEDS: D5W w/KCl 20mEq 1,000 ML IV SCH (12:00)
[2017-07-27] MEDS ORDERED: ACETAMINOPHEN325 M1 GT (12:47)
[2017-07-27] MEDS ORDERED: CLONIDINE HCL0.1 MG GT (12:48)
[2017-07-27] MEDS ORDERED: LEVEMIR100 UNIT/1 SUBQ (12:48)
[2017-07-27] MEDS ORDERED: NOVOLIN N100 UNIT/1 SUBQ (12:48)
[2017-07-27] MEDS ORDERED: LOSARTAN POTASS50 MG GT (12:49)
--- NOTE | 2017-07-27 13:58 | Nephrology Progress Note ---
Assessment/Plan Problem List: (1) Hypernatremia Assessment: Improved (2) Hypokalemia Assessment: corrected (3) Fever (4) Acidosis (5) Respiratory distress (6) Pancreatitis (7) Elevated troponin (8) Alcohol withdrawal (9) Pneumonia (10) Sepsis (11) Cardiopulmonary arrest (12) Metabolic acidosis (13) DKA (diabetic ketoacidosis) (14) Renal failure Assessment: Improved (15) DNR (do not resuscitate) Plan Continue current treatment plan D5W+KCL@ 75cc/hr Monitor temp Suspect diffuse cerebral anoxia and edema with decorticate rigidity per Dr Cano. Monitor lytes, correct prn Monitor neuro status, f/u with neurology rec G-tube feeding per GI Strict glycemic control Monitor renal function on current abx Abx per ID Monitor intake and output Continue carpenter AM labs DC plan Subjective ROS Limited/Unobtainable: Yes Subjective Seen in [facility],unresponsive, in no apparent distress Objective Objective Last 24 Hour Vital Signs Date Time Temp Pulse Resp B/P (MAP) Pulse Ox O2 Delivery O2 Flow Rate FiO2 07/27/17 11:48 97.3 111 20 129/91 98 07/27/17 10:20 99 Room Air 07/27/17 09:46 99 Nasal Cannula 2.0 28 07/27/17 08:56 Nasal Cannula 2.0 28 07/27/17 08:08 146/111 07/27/17 08:07 128 07/27/17 08:05 97.7 130 18 146/111 97 Nasal Cannula 3.0 07/27/17 08:00 97.7 130 20 146/111 97 07/27/17 04:30 99 Nasal Cannula 3.0 07/27/17 04:30 97.8 68 18 140/86 99 18 07/27/17 00:09 99 Nasal Cannula 3.0 07/27/17 00:09 97.8 103 18 143/95 99 103 07/26/17 20:54 125/96 07/26/17 20:46 96 Nasal Cannula 3.0 07/26/17 20:46 97.6 94 18 125/96 96 94 07/26/17 19:30 94 Nasal Cannula 2.0 28 07/26/17 19:30 Nasal Cannula 2.0 28 07/26/17 17:52 97.9 82 18 113/79 100 07/26/17 16:00 98.7 109 19 122/89 96 Nasal Cannula 3.0 Intake and Output 07/26/17 07/27/17 19:00 07:00 Intake Total 1400 ml 1535 ml Balance 1400 ml 1535 ml Free Water 50 ml 200 ml IV Total 750 ml 675 ml Tube Feeding 550 ml 660 ml Other 50 ml Height (Feet): 5 Height (Inches): 6.00 Weight (Pounds): 120 General Appearance: no apparent distress Neck: stiff neck Cardiovascular: normal rate Respiratory/Chest: decreased breath sounds Abdomen: soft, other - PEG Genitourinary/Rectal: other - carpenter Extremities: trace edema Neurologic: unresponsive Hannah Johnson N.P. Jul 27, 2017 13:58
--- NOTE | 2017-07-27 14:34 | Infectious Diseases Prog Note ---
Assessment/Plan Problems: (1) Pneumonia Assessment & Plan: due to Acinetobacter baumannii , S/P ceftazidime for two weeks , improved . continue aspiration precaution and suctioning to avoid further aspiration , may benefit from tracheostomy. continue to monitor labs and vitals , he is high risk for aspiration . keep HOB>30 degree (2) Anoxic cerebral edema Assessment & Plan: with no significant improvement, has poor prognosis , has PEG placement as per family , now full code as per family request , but postural and spastic and unresponsive . (3) Dysphagia Assessment & Plan: he received permanent tube feeding for nutritional support , family wants to proceed with full support (4) Excessive salivation Assessment & Plan: watch out for aspiration, keep oral suctioning . keep head of bed elevated all time Subjective ROS Limited/Unobtainable: Yes Allergies: Coded Allergies: No Known Allergies (Unverified , 06/15/17) Subjective he is unresponsive , on high flow oxygen , postural and spastic in the lower extremities , doesn't follow commands , afebrile .opens eyes spontaneously on/ off . doesn't track. had permanent PEG tube placed, no significant oral secretions Objective Vital Signs Last 24 Hour Vital Signs Date Time Temp Pulse Resp B/P (MAP) Pulse Ox O2 Delivery O2 Flow Rate FiO2 07/27/17 11:48 97.3 111 20 129/91 98 07/27/17 10:20 99 Room Air 07/27/17 09:46 99 Nasal Cannula 2.0 28 07/27/17 08:56 Nasal Cannula 2.0 28 07/27/17 08:08 146/111 07/27/17 08:07 128 07/27/17 08:05 97.7 130 18 146/111 97 Nasal Cannula 3.0 07/27/17 08:00 97.7 130 20 146/111 97 07/27/17 04:30 99 Nasal Cannula 3.0 07/27/17 04:30 97.8 68 18 140/86 99 18 07/27/17 00:09 99 Nasal Cannula 3.0 07/27/17 00:09 97.8 103 18 143/95 99 103 07/26/17 20:54 125/96 07/26/17 20:46 96 Nasal Cannula 3.0 07/26/17 20:46 97.6 94 18 125/96 96 94 07/26/17 19:30 94 Nasal Cannula 2.0 28 07/26/17 19:30 Nasal Cannula 2.0 28 07/26/17 17:52 97.9 82 18 113/79 100 07/26/17 16:00 98.7 109 19 122/89 96 Nasal Cannula 3.0 Height (Feet): 5 Height (Inches): 6.00 Weight (Pounds): 120 General Appearance: WD/WN, no acute distress HEENT: normocephalic, atraumatic, anicteric, mucous membranes moist Respiratory/Chest: chest wall non-tender, lungs clear, normal breath sounds, no respiratory distress, no accessory muscle use Cardiovascular: normal peripheral pulses, normal rate, regular rhythm, no gallop/murmur, no JVD Abdomen: normal bowel sounds, soft, non tender, no organomegaly, non distended , no mass, no scars Extremities: no cyanosis, no clubbing Skin: no rash, no lesions, no ulcers Lymphatic: no neck adenopathy, no groin adenopathy Current Medications Medications (Trade) Dose Ordered Sig/Conrado Route PRN Reason Start Time Stop Time Status Last Admin Dose Admin Acetaminophen (Tylenol) 500 mg Q6H PRN GT Mild Pain/Temp > 100.5 07/26/17 18:00 08/25/17 17:59 Clonidine HCl (Catapres Tab) 0.1 mg Q2H PRN GT SBP > 170mmHg 07/26/17 18:00 08/19/17 13:59 Collagenase (Santyl) 1 applic BEDTIME TOPIC 07/26/17 21:00 08/12/17 14:59 Dextrose (Dextrose 50%) STAT PRN IV Hypoglycemia 07/26/17 18:30 07/29/17 18:29 07/26/17 18:29 Dextrose/ Electrolytes 1,000 ml @ 75 mls/hr [id number] IV 07/26/17 18:00 08/07/17 14:59 07/26/17 21:35 Insulin Aspart (NovoLOG) Q6HR SUBQ 07/26/17 18:45 08/05/17 18:44 07/27/17 11:37 Insulin Detemir (Levemir) 23 units Q12HR SUBQ 07/26/17 21:00 08/15/17 20:59 07/27/17 09:06 Losartan Potassium (Cozaar) 50 mg EVERY 12 HOURS GT 07/26/17 21:00 08/19/17 20:59 07/27/17 08:08 Saad Cummings M.D. Jul 27, 2017 14:34
--- NOTE | 2017-07-27 14:34 | Wound Nurse Progress Note ---
Wound RN Progress Note Wound Consult #1 Left sacral area unstagable pressure ulcer. Good progress noted. Will f/u with this Pt. #2 Left upper back DTI pressure ulcer. Resolved. Intact scar tissue noted #3 Mid and right upper back scattered DTI pressure ulcer. Resolved. Intact scar tissue noted #4 Left tip of the big toe DTI pressure ulcer. Skin still intact #5 Right tip of the big toe DTI pressure ulcer. Skin still intact #6 Left heel DTI pressure ulcer. Skin still intact #7 Right heel DTI pressure ulcer. Skin still intact #8 Left ear DTI pressure ulcer. Skin still intact Reassessed this Pt. No deterioration noted. Will cont with Santyl ointment for unstageable pressure ulcer on sacral area and recommendations below -Keep clean and dry -Turn and reposition -Offload both heels -Optimize nutrition -Heel protector on both heels -Low air loss mattress -Assess and f/u accordingly for any changes SHIRA VALENTINE RN Jul 27, 2017 14:34
[2017-07-28] VITALS: BP 141/90
[2017-07-28] MEDS: NovoLOG Insulin Flexpen SUBQ SCH ×5 (01:17→23:40)
[2017-07-28] MEDS: D5W w/KCl 20mEq 1,000 ML IV SCH ×2 (01:23→16:13)
[2017-07-28 04:00] VITALS: BP 150/93
--- NOTE | 2017-07-28 05:45 | Progress Note ---
DATE: 07/27/2017 NOTE: POOR AUDIO SUBJECTIVE: in the near future. OBJECTIVE: VITAL SIGNS: . RESPIRATORY: Clear. CARDIOVASCULAR: Regular. LABORATORY DATA: Glucose . ASSESSMENT: Diabetes mellitus, improved control. PLAN: Eugene Layton M.D. DR: DANA JOB#: [id number] CC:
[2017-07-28 07:26] LABS: BASOPHILS % (AUTO) 0.8 % (0.0-2.0); EOSINOPHILS % (AUTO) 3.3 % (0.0-3.0); HEMATOCRIT 29.8 % (42.0-52.0); HEMOGLOBIN 10.3 G/DL (14.2-18.0); LYMPHOCYTES % (AUTO) 20.3 % (20.0-45.0); MEAN CORPUSCULAR VOLUME 96 FL (80-99); MONOCYTES % (AUTO) 11.4 % (1.0-10.0); NEUTROPHILS % (AUTO) 64.1 % (45.0-75.0); PLATELET COUNT 309 K/UL (150-450); RED BLOOD COUNT 3.11 M/UL (4.70-6.10); RED CELL DISTRIBUTION WIDTH 11.5 % (11.6-14.8); WHITE BLOOD COUNT 6.9 K/UL (4.8-10.8)
[2017-07-28 07:45] LABS: ANION GAP 9 mmol/L (5-15); BLOOD UREA NITROGEN 15 mg/dL (7-18); CALCIUM 9.9 MG/DL (8.5-10.1); CARBON DIOXIDE 29 MMOL/L (21-32); CHLORIDE 96 MMOL/L (98-107); CREATININE 0.6 MG/DL (0.55-1.30); POTASSIUM 4.1 MMOL/L (3.5-5.1); SODIUM 134 MMOL/L (136-145)
[2017-07-28 08:00] VITALS: BP 128/89
[2017-07-28] MEDS: Levemir Flexpen SUBQ SCH ×2 (09:51→21:26)
[2017-07-28] MEDS: Losartan 50mg tab GT SCH ×2 (09:53→21:00)
--- NOTE | 2017-07-28 10:38 | Pulmonology Progress Note ---
Assessment/Plan Assessment/Plan IMPRESSION: 1. Respiratory failure; extubated 2. Cannabis usage. 3. Diabetic ketoacidosis. 4. Troponin leak. 5. Tachycardia. 6. Anoxic brain injury DISCUSSION: Continue present management and care. now extubated Poor prognosis Remains on supplemental O2; now with lower FiO2; on 2-4L/min ABG adequate Continue oral airway/suctioning Subjective Interval Events: none Constitutional: Reports: no symptoms HEENT: Repors: no symptoms Respiratory: Reports: no symptoms Cardiovascular: Reports: no symptoms Allergies: Coded Allergies: No Known Allergies (Unverified , 06/15/17) Objective Last 24 Hour Vital Signs Date Time Temp Pulse Resp B/P (MAP) Pulse Ox O2 Delivery O2 Flow Rate FiO2 07/28/17 09:53 128/89 07/28/17 08:00 97.9 110 18 128/89 99 Room Air 07/28/17 04:00 99.5 121 20 150/93 100 07/28/17 00:00 97.8 111 19 141/90 100 07/27/17 20:28 138/88 07/27/17 20:00 98.4 115 19 138/88 100 07/27/17 16:02 97.5 116 20 125/83 100 07/27/17 15:56 97.0 64 20 141/77 93 07/27/17 11:48 97.3 111 20 129/91 98 Intake and Output 07/27/17 07/28/17 19:00 07:00 Intake Total 1585 ml 1430 ml Output Total 700 ml 500 ml Balance 885 ml 930 ml Free Water 100 ml IV Total 825 ml 825 ml Tube Feeding 660 ml 605 ml Output Urine Total 700 ml 500 ml # Bowel Movements 2 General Appearance: no acute distress HEENT: normocephalic Respiratory/Chest: chest wall non-tender, lungs clear Cardiovascular: normal peripheral pulses, normal rate Abdomen: normal bowel sounds Laboratory Tests 07/28/17 04:50: White Blood Count 6.9, Red Blood Count 3.11L, Hemoglobin 10.3L, Hematocrit 29.8L , Mean Corpuscular Volume 96, Mean Corpuscular Hemoglobin 33.0H, Mean Corpuscular Hemoglobin Concent 34.6, Red Cell Distribution Width 11.5L, Platelet Count 309, Mean Platelet Volume 8.3, Neutrophils (%) (Auto) 64.1, Lymphocytes (%) (Auto) 20.3, Monocytes (%) (Auto) 11.4H, Eosinophils (%) (Auto) 3.3H, Basophils (%) (Auto) 0.8, Sodium Level 134L, Potassium Level 4.1, Chloride Level 96L, Carbon Dioxide Level 29, Anion Gap 9, Blood Urea Nitrogen 15 , Creatinine 0.6, Estimat Glomerular Filtration Rate > 60, Glucose Level 255H, Calcium Level 9.9 Current Medications Medications (Trade) Dose Ordered Sig/Conrado Route PRN Reason Start Time Stop Time Status Last Admin Dose Admin Acetaminophen (Tylenol) 500 mg Q6H PRN GT Mild Pain/Temp > 100.5 07/26/17 18:00 08/25/17 17:59 Clonidine HCl (Catapres Tab) 0.1 mg Q2H PRN GT SBP > 170mmHg 07/26/17 18:00 08/19/17 13:59 Collagenase (Santyl) 1 applic BEDTIME TOPIC 07/26/17 21:00 08/12/17 14:59 07/27/17 21:51 Dextrose (Dextrose 50%) STAT PRN IV Hypoglycemia 07/26/17 18:30 07/29/17 18:29 07/26/17 18:29 Dextrose/ Electrolytes 1,000 ml @ 75 mls/hr [id number] IV 07/26/17 18:00 08/07/17 14:59 07/28/17 01:23 Insulin Aspart (NovoLOG) Q6HR SUBQ 07/26/17 18:45 08/05/17 18:44 07/28/17 05:55 Insulin Detemir (Levemir) 23 units Q12HR SUBQ 07/26/17 21:00 08/15/17 20:59 07/28/17 09:51 Losartan Potassium (Cozaar) 50 mg EVERY 12 HOURS GT 07/26/17 21:00 08/19/17 20:59 07/27/17 20:28 Paulo Floyd MD Jul 28, 2017 10:38
--- NOTE | 2017-07-28 11:01 | General Progress Note ---
Assessment/Plan Problem List: (1) DKA (diabetic ketoacidosis) ICD Codes: E13.10 - Other specified diabetes mellitus with ketoacidosis without coma SNOMED: 90617118, 321166622 Qualifiers: Qualified Codes: E10.11 - Type 1 diabetes mellitus with ketoacidosis with coma (2) Transaminitis ICD Codes: R74.0 - Nonspecific elevation of levels of transaminase and lactic acid dehydrogenase [LDH] SNOMED: 764477767, 024758354 (3) Elevated troponin ICD Codes: R74.8 - Abnormal levels of other serum enzymes SNOMED: 599221171, 020075769, 712226803 (4) Dysphagia ICD Codes: R13.10 - Dysphagia, unspecified SNOMED: 93588896, 428625631 Assessment/Plan GTF respiratory care dc planning per primary team Subjective ROS Limited/Unobtainable: No Allergies: Coded Allergies: No Known Allergies (Unverified , 06/15/17) Subjective family wants full code Objective Last 24 Hour Vital Signs Date Time Temp Pulse Resp B/P (MAP) Pulse Ox O2 Delivery O2 Flow Rate FiO2 07/28/17 09:53 128/89 07/28/17 08:00 97.9 110 18 128/89 99 Room Air 07/28/17 04:00 99.5 121 20 150/93 100 07/28/17 00:00 97.8 111 19 141/90 100 07/27/17 20:28 138/88 07/27/17 20:00 98.4 115 19 138/88 100 07/27/17 16:02 97.5 116 20 125/83 100 07/27/17 15:56 97.0 64 20 141/77 93 07/27/17 11:48 97.3 111 20 129/91 98 Intake and Output 07/27/17 07/28/17 19:00 07:00 Intake Total 1585 ml 1560 ml Output Total 700 ml 500 ml Balance 885 ml 1060 ml Free Water 100 ml IV Total 825 ml 900 ml Tube Feeding 660 ml 660 ml Output Urine Total 700 ml 500 ml # Bowel Movements 2 Laboratory Tests 07/28/17 04:50: White Blood Count 6.9, Red Blood Count 3.11L, Hemoglobin 10.3L, Hematocrit 29.8L , Mean Corpuscular Volume 96, Mean Corpuscular Hemoglobin 33.0H, Mean Corpuscular Hemoglobin Concent 34.6, Red Cell Distribution Width 11.5L, Platelet Count 309, Mean Platelet Volume 8.3, Neutrophils (%) (Auto) 64.1, Lymphocytes (%) (Auto) 20.3, Monocytes (%) (Auto) 11.4H, Eosinophils (%) (Auto) 3.3H, Basophils (%) (Auto) 0.8, Sodium Level 134L, Potassium Level 4.1, Chloride Level 96L, Carbon Dioxide Level 29, Anion Gap 9, Blood Urea Nitrogen 15 , Creatinine 0.6, Estimat Glomerular Filtration Rate > 60, Glucose Level 255H, Calcium Level 9.9 Height (Feet): 5 Height (Inches): 6.00 Weight (Pounds): 120 General Appearance: no apparent distress EENT: normal ENT inspection Neck: supple Cardiovascular: normal rate Respiratory/Chest: decreased breath sounds Abdomen: normal bowel sounds, non tender, soft Extremities: non-tender SAM PEREIRA Jul 28, 2017 11:01
--- NOTE | 2017-07-28 11:53 | Nephrology Progress Note ---
Assessment/Plan Problem List: (1) Respiratory distress Assessment: now intubated (2) Pneumonia Assessment: aspiration? (3) Cardiopulmonary arrest Assessment: due to DKA. (4) Metabolic acidosis (5) DKA (diabetic ketoacidosis) Assessment: resolved. (6) Hypernatremia (7) Anoxic encephalopathy syndrome (8) Anoxic cerebral edema (9) Shock liver (10) Diarrhea (11) Dysphagia (12) Pancreatitis Assessment: resolved. (13) Elevated troponin (14) Hyponatremia Assessment: corrected (15) Alcohol withdrawal (16) Sepsis (17) Fever Plan GTF per RD and GI recs. abx per ID. d/c planning. Subjective Subjective now on RA. Unresponsive. Objective Objective Last 24 Hour Vital Signs Date Time Temp Pulse Resp B/P (MAP) Pulse Ox O2 Delivery O2 Flow Rate FiO2 07/28/17 09:53 128/89 07/28/17 08:00 97.9 110 18 128/89 99 Room Air 07/28/17 04:00 99.5 121 20 150/93 100 07/28/17 00:00 97.8 111 19 141/90 100 07/27/17 20:28 138/88 07/27/17 20:00 98.4 115 19 138/88 100 07/27/17 16:02 97.5 116 20 125/83 100 07/27/17 15:56 97.0 64 20 141/77 93 Intake and Output 07/27/17 07/28/17 19:00 07:00 Intake Total 1585 ml 1560 ml Output Total 700 ml 500 ml Balance 885 ml 1060 ml Free Water 100 ml IV Total 825 ml 900 ml Tube Feeding 660 ml 660 ml Output Urine Total 700 ml 500 ml # Bowel Movements 2 Laboratory Tests 07/28/17 04:50: White Blood Count 6.9, Red Blood Count 3.11L, Hemoglobin 10.3L, Hematocrit 29.8L , Mean Corpuscular Volume 96, Mean Corpuscular Hemoglobin 33.0H, Mean Corpuscular Hemoglobin Concent 34.6, Red Cell Distribution Width 11.5L, Platelet Count 309, Mean Platelet Volume 8.3, Neutrophils (%) (Auto) 64.1, Lymphocytes (%) (Auto) 20.3, Monocytes (%) (Auto) 11.4H, Eosinophils (%) (Auto) 3.3H, Basophils (%) (Auto) 0.8, Sodium Level 134L, Potassium Level 4.1, Chloride Level 96L, Carbon Dioxide Level 29, Anion Gap 9, Blood Urea Nitrogen 15 , Creatinine 0.6, Estimat Glomerular Filtration Rate > 60, Glucose Level 255H, Calcium Level 9.9 Height (Feet): 5 Height (Inches): 6.00 Weight (Pounds): 120 General Appearance: no apparent distress Cardiovascular: normal rate, regular rhythm Respiratory/Chest: lungs clear Abdomen: non tender, soft SOFIA HAYES Jul 28, 2017 11:53
[2017-07-28 12:00] VITALS: BP 128/89
[2017-07-28 15:25] VITALS: BP 121/81
--- NOTE | 2017-07-28 15:43 | Cardiac Electrophysiology PN ---
Assessment/Plan Assessment/Plan 1. Troponin leak due to renal failure. EF 60%. 2. Sinus tachy due to DKA and sepsis. No fib or SVT. Treatment is underlying sepsis. 3. S/P Respiratory failure with Terminal extubation. On oxygen. 4. S/P Pneumonia off abx 5. Pancreatitis. 6. ARF.Resolved 7. Marijuana use. 8. Suspect diffuse cerebral anoxia and edema with decorticate rigidity 9. Alcohol withdrawal. 10. Severe Hypernatremia. Resolved 11. Dysphagia.S/P PEG 12. DNR, DNI 13. Placement pending. DW RN Subjective Subjective RN at bedside. GT feeding. ECG showed sinus tach 120s. Placement pending. Objective Last 24 Hour Vital Signs Date Time Temp Pulse Resp B/P (MAP) Pulse Ox O2 Delivery O2 Flow Rate FiO2 07/28/17 15:25 98.6 124 21 121/81 99 07/28/17 12:00 97.9 105 18 128/89 98 Room Air 07/28/17 09:53 128/89 07/28/17 08:00 97.9 110 18 128/89 99 Room Air 07/28/17 04:00 99.5 121 20 150/93 100 07/28/17 00:00 97.8 111 19 141/90 100 07/27/17 20:28 138/88 07/27/17 20:00 98.4 115 19 138/88 100 07/27/17 16:02 97.5 116 20 125/83 100 07/27/17 15:56 97.0 64 20 141/77 93 Intake and Output 07/27/17 07/28/17 19:00 07:00 Intake Total 1585 ml 1560 ml Output Total 700 ml 500 ml Balance 885 ml 1060 ml Free Water 100 ml IV Total 825 ml 900 ml Tube Feeding 660 ml 660 ml Output Urine Total 700 ml 500 ml # Bowel Movements 2 Laboratory Tests Test 07/28/17 04:50 White Blood Count 6.9 K/UL (4.8-10.8) Red Blood Count 3.11 M/UL (4.70-6.10) L Hemoglobin 10.3 G/DL (14.2-18.0) L Hematocrit 29.8 % (42.0-52.0) L Mean Corpuscular Volume 96 FL (80-99) Mean Corpuscular Hemoglobin 33.0 PG (27.0-31.0) H Mean Corpuscular Hemoglobin Concent 34.6 G/DL (32.0-36.0) Red Cell Distribution Width 11.5 % (11.6-14.8) L Platelet Count 309 K/UL (150-450) Mean Platelet Volume 8.3 FL (6.5-10.1) Neutrophils (%) (Auto) 64.1 % (45.0-75.0) Lymphocytes (%) (Auto) 20.3 % (20.0-45.0) Monocytes (%) (Auto) 11.4 % (1.0-10.0) H Eosinophils (%) (Auto) 3.3 % (0.0-3.0) H Basophils (%) (Auto) 0.8 % (0.0-2.0) Sodium Level 134 MMOL/L (136-145) L Potassium Level 4.1 MMOL/L (3.5-5.1) Chloride Level 96 MMOL/L (98-107) L Carbon Dioxide Level 29 MMOL/L (21-32) Anion Gap 9 mmol/L (5-15) Blood Urea Nitrogen 15 mg/dL (7-18) Creatinine 0.6 MG/DL (0.55-1.30) Estimat Glomerular Filtration Rate > 60 mL/min (>60) Glucose Level 255 MG/DL (74-106) H Calcium Level 9.9 MG/DL (8.5-10.1) Objective HEAD AND NECK: No JVD. LUNGS: Clear. CARDIOVASCULAR: Tachy S1 and S2 with no gallop or murmur. ABDOMEN: PEG in place EXTREMITIES: No pitting edema. ALBERT ROWAN Jul 28, 2017 15:43
[2017-07-28 20:00] VITALS: BP 137/82
--- NOTE | 2017-07-28 20:50 | Infectious Diseases Prog Note ---
Assessment/Plan Problems: (1) Pneumonia Assessment & Plan: due to Acinetobacter baumannii , S/P ceftazidime for two weeks , improved . continue aspiration precaution and suctioning to avoid further aspiration , may benefit from tracheostomy. continue to monitor labs and vitals , he is high risk for aspiration . keep HOB>30 degree (2) Anoxic cerebral edema Assessment & Plan: with no significant improvement, has poor prognosis , has PEG placement as per family , now full code as per family request , but postural and spastic and unresponsive . (3) Dysphagia Assessment & Plan: he received permanent tube feeding for nutritional support , family wants to proceed with full support (4) Excessive salivation Assessment & Plan: watch out for aspiration, keep oral suctioning . keep head of bed elevated all time Subjective ROS Limited/Unobtainable: Yes Allergies: Coded Allergies: No Known Allergies (Unverified , 06/15/17) Subjective he is still unresponsive , on high flow oxygen , postural and spastic in the lower extremities , doesn't follow commands , afebrile .opens eyes spontaneously on/off . doesn't track. had permanent PEG tube placed, no significant oral secretions Objective Vital Signs Last 24 Hour Vital Signs Date Time Temp Pulse Resp B/P (MAP) Pulse Ox O2 Delivery O2 Flow Rate FiO2 07/28/17 15:25 98.6 124 21 121/81 99 07/28/17 12:00 97.9 105 18 128/89 98 Room Air 07/28/17 09:53 128/89 07/28/17 08:00 97.9 110 18 128/89 99 Room Air 07/28/17 04:00 99.5 121 20 150/93 100 07/28/17 00:00 97.8 111 19 141/90 100 Height (Feet): 5 Height (Inches): 6.00 Weight (Pounds): 120 General Appearance: WD/WN, no acute distress HEENT: normocephalic, atraumatic, anicteric, mucous membranes moist, PERRL Respiratory/Chest: chest wall non-tender, lungs clear, normal breath sounds, no respiratory distress, no accessory muscle use Cardiovascular: normal peripheral pulses, normal rate, regular rhythm, no gallop/murmur, no JVD Abdomen: normal bowel sounds, no organomegaly, non distended, no mass, no scars Extremities: no cyanosis, no clubbing Skin: no rash, no lesions, ulcers Neurologic/Psychiatric: unresponsiveness Laboratory Tests Test 07/28/17 04:50 White Blood Count 6.9 K/UL (4.8-10.8) Red Blood Count 3.11 M/UL (4.70-6.10) L Hemoglobin 10.3 G/DL (14.2-18.0) L Hematocrit 29.8 % (42.0-52.0) L Mean Corpuscular Volume 96 FL (80-99) Mean Corpuscular Hemoglobin 33.0 PG (27.0-31.0) H Mean Corpuscular Hemoglobin Concent 34.6 G/DL (32.0-36.0) Red Cell Distribution Width 11.5 % (11.6-14.8) L Platelet Count 309 K/UL (150-450) Mean Platelet Volume 8.3 FL (6.5-10.1) Neutrophils (%) (Auto) 64.1 % (45.0-75.0) Lymphocytes (%) (Auto) 20.3 % (20.0-45.0) Monocytes (%) (Auto) 11.4 % (1.0-10.0) H Eosinophils (%) (Auto) 3.3 % (0.0-3.0) H Basophils (%) (Auto) 0.8 % (0.0-2.0) Sodium Level 134 MMOL/L (136-145) L Potassium Level 4.1 MMOL/L (3.5-5.1) Chloride Level 96 MMOL/L (98-107) L Carbon Dioxide Level 29 MMOL/L (21-32) Anion Gap 9 mmol/L (5-15) Blood Urea Nitrogen 15 mg/dL (7-18) Creatinine 0.6 MG/DL (0.55-1.30) Estimat Glomerular Filtration Rate > 60 mL/min (>60) Glucose Level 255 MG/DL (74-106) H Calcium Level 9.9 MG/DL (8.5-10.1) Current Medications Medications (Trade) Dose Ordered Sig/Conrado Route PRN Reason Start Time Stop Time Status Last Admin Dose Admin Acetaminophen (Tylenol) 500 mg Q6H PRN GT Mild Pain/Temp > 100.5 07/26/17 18:00 08/25/17 17:59 Clonidine HCl (Catapres Tab) 0.1 mg Q2H PRN GT SBP > 170mmHg 07/26/17 18:00 08/19/17 13:59 Collagenase (Santyl) 1 applic BEDTIME TOPIC 07/26/17 21:00 08/12/17 14:59 07/27/17 21:51 Dextrose (Dextrose 50%) STAT PRN IV Hypoglycemia 07/26/17 18:30 07/29/17 18:29 07/26/17 18:29 Dextrose/ Electrolytes 1,000 ml @ 75 mls/hr [id number] IV 07/26/17 18:00 08/07/17 14:59 07/28/17 16:13 Insulin Aspart (NovoLOG) Q6HR SUBQ 07/26/17 18:45 08/05/17 18:44 07/28/17 18:16 Insulin Detemir (Levemir) 23 units Q12HR SUBQ 07/26/17 21:00 08/15/17 20:59 07/28/17 09:51 Losartan Potassium (Cozaar) 50 mg EVERY 12 HOURS GT 07/26/17 21:00 08/19/17 20:59 07/27/17 20:28 Saad Cummings M.D. Jul 28, 2017 20:50
[2017-07-29] VITALS: BP 130/91
[2017-07-29 04:00] VITALS: BP 135/98
[2017-07-29] MEDS: D5W w/KCl 20mEq 1,000 ML IV SCH ×2 (06:16→21:32)
[2017-07-29] MEDS: NovoLOG Insulin Flexpen SUBQ SCH ×3 (06:43→17:47)
--- NOTE | 2017-07-29 06:46 | Geriatric Medicine Prog Note ---
DATE: 07/28/2017 NOTE: POOR AUDIO SUBJECTIVE: The patient is comfortable today. OBJECTIVE: VITAL SIGNS: Blood pressure 157/62, pulse 119, respiratory rate 20, and temperature 92 degrees. RESPIRATORY: Clear. CVS: Regular. LABORATORY DATA: Glucose 112. ASSESSMENT: Diabetes mellitus, improved controlled. PLAN: G-tube and 25 units q.12 h. Eugene Layton M.D. DR: LILIANA JOB#: [id number] CC:
[2017-07-29 08:00] VITALS: BP 127/76
--- NOTE | 2017-07-29 08:23 | Pulmonology Progress Note ---
Assessment/Plan Assessment/Plan IMPRESSION: 1. Respiratory failure; extubated 2. Cannabis usage. 3. Diabetic ketoacidosis. 4. Troponin leak. 5. Tachycardia. 6. Anoxic brain injury DISCUSSION: Continue present management and care. Now on room air Continue oral airwayprn/suctioning Subjective Interval Events: none Constitutional: Reports: no symptoms HEENT: Repors: no symptoms Respiratory: Reports: no symptoms Cardiovascular: Reports: no symptoms Gastrointestinal/Abdominal: Reports: no symptoms Allergies: Coded Allergies: No Known Allergies (Unverified , 06/15/17) Objective Last 24 Hour Vital Signs Date Time Temp Pulse Resp B/P (MAP) Pulse Ox O2 Delivery O2 Flow Rate FiO2 07/29/17 04:00 97.7 116 20 135/98 97 Room Air 07/29/17 00:00 98.1 111 19 130/91 99 Room Air 07/28/17 21:00 137/82 07/28/17 20:00 98.2 119 21 137/82 100 Room Air 07/28/17 19:03 Nasal Cannula 2.0 28 07/28/17 19:03 97 Nasal Cannula 2.0 28 07/28/17 15:25 98.6 124 21 121/81 99 07/28/17 12:00 97.9 105 18 128/89 98 Room Air 07/28/17 09:53 128/89 Intake and Output 07/28/17 07/29/17 19:00 07:00 Intake Total 1575 ml 1560 ml Output Total 1200 ml Balance 375 ml 1560 ml Free Water 200 ml 200 ml IV Total 825 ml 755 ml Tube Feeding 550 ml 605 ml Output Urine Total 1200 ml # Voids 1 General Appearance: no acute distress HEENT: normocephalic Respiratory/Chest: chest wall non-tender, lungs clear Cardiovascular: normal peripheral pulses, normal rate Current Medications Medications (Trade) Dose Ordered Sig/Conrado Route PRN Reason Start Time Stop Time Status Last Admin Dose Admin Acetaminophen (Tylenol) 500 mg Q6H PRN GT Mild Pain/Temp > 100.5 07/26/17 18:00 08/25/17 17:59 Clonidine HCl (Catapres Tab) 0.1 mg Q2H PRN GT SBP > 170mmHg 07/26/17 18:00 08/19/17 13:59 Collagenase (Santyl) 1 applic BEDTIME TOPIC 07/26/17 21:00 3/4/18 14:59 07/28/17 21:25 Dextrose (Dextrose 50%) STAT PRN IV Hypoglycemia 07/26/17 18:30 07/29/17 18:29 07/26/17 18:29 Dextrose/ Electrolytes 1,000 ml @ 75 mls/hr [id number] IV 07/26/17 18:00 08/07/17 14:59 07/29/17 06:16 Insulin Aspart (NovoLOG) Q6HR SUBQ 07/26/17 18:45 08/05/17 18:44 07/29/17 06:43 Insulin Detemir (Levemir) 25 units Q12HR SUBQ 07/29/17 09:00 08/28/17 08:59 Losartan Potassium (Cozaar) 50 mg EVERY 12 HOURS GT 07/26/17 21:00 08/19/17 20:59 07/27/17 20:28 Paulo Floyd MD Jul 29, 2017 08:23
[2017-07-29] MEDS: Losartan 50mg tab GT SCH ×2 (09:00→20:21)
[2017-07-29] MEDS: Levemir Flexpen SUBQ SCH ×2 (09:46→20:57)
--- NOTE | 2017-07-29 11:41 | Nephrology Progress Note ---
Assessment/Plan Problem List: (1) Respiratory distress Assessment: now intubated (2) Pneumonia Assessment: aspiration? (3) Cardiopulmonary arrest Assessment: due to DKA. (4) Metabolic acidosis (5) DKA (diabetic ketoacidosis) Assessment: resolved. (6) Hypernatremia (7) Anoxic encephalopathy syndrome (8) Anoxic cerebral edema (9) Shock liver (10) Diarrhea (11) Dysphagia (12) Pancreatitis Assessment: resolved. (13) Elevated troponin (14) Hyponatremia Assessment: corrected (15) Alcohol withdrawal (16) Sepsis (17) Fever Plan GTF per RD and GI recs. abx per ID. d/c planning. Subjective Subjective stable on RA. Unresponsive. Objective Objective Last 24 Hour Vital Signs Date Time Temp Pulse Resp B/P (MAP) Pulse Ox O2 Delivery O2 Flow Rate FiO2 07/29/17 09:34 Room Air 07/29/17 09:00 127/76 07/29/17 08:00 97.9 97 20 127/76 97 07/29/17 04:00 97.7 116 20 135/98 97 Room Air 07/29/17 00:00 98.1 111 19 130/91 99 Room Air 07/28/17 21:00 137/82 07/28/17 20:00 98.2 119 21 137/82 100 Room Air 07/28/17 19:03 Nasal Cannula 2.0 28 07/28/17 19:03 97 Nasal Cannula 2.0 28 07/28/17 15:25 98.6 124 21 121/81 99 07/28/17 12:00 97.9 105 18 128/89 98 Room Air Intake and Output 07/28/17 07/29/17 19:00 07:00 Intake Total 1575 ml 1615 ml Output Total 1200 ml Balance 375 ml 1615 ml Free Water 200 ml 200 ml IV Total 825 ml 755 ml Tube Feeding 550 ml 660 ml Output Urine Total 1200 ml # Voids 1 Height (Feet): 5 Height (Inches): 6.00 Weight (Pounds): 120 General Appearance: no apparent distress Cardiovascular: normal rate, regular rhythm Respiratory/Chest: lungs clear Abdomen: non tender, soft Neurologic: unresponsive SOFIA HAYES Jul 29, 2017 11:41
[2017-07-29 12:00] VITALS: BP 117/93
--- NOTE | 2017-07-29 14:17 | Infectious Diseases Prog Note ---
Assessment/Plan Problems: (1) Pneumonia Assessment & Plan: due to Acinetobacter baumannii , S/P ceftazidime for two weeks , improved . continue aspiration precaution and suctioning to avoid further aspiration , may benefit from tracheostomy. continue to monitor labs and vitals , he is high risk for aspiration . keep HOB>30 degree (2) Anoxic cerebral edema Assessment & Plan: with no significant improvement, has poor prognosis , has PEG placement as per family , now full code as per family request , but postural and spastic and unresponsive . (3) Dysphagia Assessment & Plan: he received permanent tube feeding for nutritional support , family wants to proceed with full support (4) Excessive salivation Assessment & Plan: watch out for aspiration, keep oral suctioning . keep head of bed elevated all time Subjective ROS Limited/Unobtainable: Yes Allergies: Coded Allergies: No Known Allergies (Unverified , 06/15/17) Subjective he is still unresponsive , on high flow oxygen , postural and spastic in the lower extremities , doesn't follow commands , afebrile .opens eyes spontaneously on/off . doesn't track. had permanent PEG tube placed, no significant oral secretions Objective Vital Signs Last 24 Hour Vital Signs Date Time Temp Pulse Resp B/P (MAP) Pulse Ox O2 Delivery O2 Flow Rate FiO2 07/29/17 13:30 Room Air 21 07/29/17 13:30 98 Room Air 21 07/29/17 12:00 98.1 120 20 117/93 100 07/29/17 09:34 Room Air 07/29/17 09:00 127/76 07/29/17 08:00 97.9 97 20 127/76 97 07/29/17 04:00 97.7 116 20 135/98 97 Room Air 07/29/17 00:00 98.1 111 19 130/91 99 Room Air 07/28/17 21:00 137/82 07/28/17 20:00 98.2 119 21 137/82 100 Room Air 07/28/17 19:03 Nasal Cannula 2.0 28 07/28/17 19:03 97 Nasal Cannula 2.0 28 07/28/17 15:25 98.6 124 21 121/81 99 Height (Feet): 5 Height (Inches): 6.00 Weight (Pounds): 120 General Appearance: WD/WN, no acute distress, cachetic HEENT: normocephalic, atraumatic, anicteric, mucous membranes moist, PERRL Respiratory/Chest: chest wall non-tender, lungs clear, normal breath sounds, no respiratory distress, no accessory muscle use Cardiovascular: normal peripheral pulses, normal rate, regular rhythm, no gallop/murmur, no JVD Abdomen: normal bowel sounds, soft, non tender, no organomegaly, non distended , no mass, no scars Extremities: no cyanosis, no clubbing Skin: no rash, no lesions, no ulcers Neurologic/Psychiatric: unresponsiveness Lymphatic: no neck adenopathy, no groin adenopathy Current Medications Medications (Trade) Dose Ordered Sig/Conrado Route PRN Reason Start Time Stop Time Status Last Admin Dose Admin Acetaminophen (Tylenol) 500 mg Q6H PRN GT Mild Pain/Temp > 100.5 07/26/17 18:00 08/25/17 17:59 Clonidine HCl (Catapres Tab) 0.1 mg Q2H PRN GT SBP > 170mmHg 07/26/17 18:00 08/19/17 13:59 Collagenase (Santyl) 1 applic BEDTIME TOPIC 07/26/17 21:00 08/12/17 14:59 07/28/17 21:25 Dextrose (Dextrose 50%) STAT PRN IV Hypoglycemia 07/26/17 18:30 07/29/17 18:29 07/26/17 18:29 Dextrose/ Electrolytes 1,000 ml @ 75 mls/hr [id number] IV 07/26/17 18:00 08/07/17 14:59 07/29/17 06:16 Insulin Aspart (NovoLOG) Q6HR SUBQ 07/26/17 18:45 08/05/17 18:44 07/29/17 12:38 Insulin Detemir (Levemir) 25 units Q12HR SUBQ 07/29/17 09:00 08/28/17 08:59 07/29/17 09:46 Losartan Potassium (Cozaar) 50 mg EVERY 12 HOURS GT 07/26/17 21:00 08/19/17 20:59 07/27/17 20:28 Saad Cummings M.D. Jul 29, 2017 14:17
[2017-07-29 16:00] VITALS: BP 126/79
[2017-07-29 20:00] VITALS: BP 120/76
[2017-07-29] MEDS: Acetaminophen 650mg/20.3ml GT PRN (22:11)
[2017-07-30] MEDS: NovoLOG Insulin Flexpen SUBQ SCH ×4 (00:02→18:02)
[2017-07-30 00:36] VITALS: BP 118/71
[2017-07-30 04:20] VITALS: BP 122/79
[2017-07-30 08:00] VITALS: BP 144/96
[2017-07-30] MEDS: Losartan 50mg tab GT SCH ×2 (08:55→20:51)
[2017-07-30] MEDS: Levemir Flexpen SUBQ SCH ×2 (08:56→20:56)
--- NOTE | 2017-07-30 10:56 | GI Progress Note ---
Assessment/Plan Problems: (1) Anoxic cerebral edema ICD Codes: G93.6 - Cerebral edema; R09.02 - Hypoxemia SNOMED: 8476210, 142680824 (2) Transaminitis ICD Codes: R74.0 - Nonspecific elevation of levels of transaminase and lactic acid dehydrogenase [LDH] SNOMED: 241910876, 376934691 (3) Alcohol withdrawal ICD Codes: F10.239 - Alcohol dependence with withdrawal, unspecified SNOMED: 891010704 (4) Pancreatitis ICD Codes: K85.90 - Acute pancreatitis without necrosis or infection, unspecified SNOMED: 76326561 Status: stable Status Narrative Discussed with Dr. Rico. Assessment/Plan s/p PEG GTFs per RD electrolyte correction fu labs dc planning Subjective Subjective limited Objective Last 24 Hour Vital Signs Date Time Temp Pulse Resp B/P (MAP) Pulse Ox O2 Delivery O2 Flow Rate FiO2 07/30/17 08:55 144/96 07/30/17 08:00 98.4 101 19 144/96 98 07/30/17 04:20 99.2 130 19 122/79 98 07/30/17 00:36 100.4 143 19 118/71 98 07/29/17 22:41 99.5 07/29/17 22:11 101.5 07/29/17 20:21 127/76 07/29/17 20:00 101.5 140 20 120/76 98 07/29/17 16:00 97.9 123 19 126/79 99 07/29/17 16:00 Room Air 07/29/17 13:30 Room Air 21 07/29/17 13:30 98 Room Air 21 07/29/17 12:05 Room Air 07/29/17 12:00 98.1 120 20 117/93 100 Intake and Output 07/29/17 07/30/17 19:00 07:00 Intake Total 1560 ml 1705 ml Output Total 600 ml 600 ml Balance 960 ml 1105 ml Free Water 130 ml 220 ml IV Total 825 ml 825 ml Tube Feeding 605 ml 660 ml Output Urine Total 600 ml 600 ml # Voids 2 # Bowel Movements 1 4 Height (Feet): 5 Height (Inches): 6.00 Weight (Pounds): 120 General Appearance: no apparent distress, thin Cardiovascular: normal rate Abdominal Exam: GT site - c/d/i Lashawn Mason Stanton N.P. Jul 30, 2017 10:56
[2017-07-30 12:00] VITALS: BP 125/79
[2017-07-30] MEDS: D5W w/KCl 20mEq 1,000 ML IV SCH (13:12)
--- NOTE | 2017-07-30 13:42 | Cardiac Electrophysiology PN ---
Assessment/Plan Assessment/Plan 1. Troponin leak due to renal failure. EF 60%. 2. Sinus tachy due to sepsis. DKA resolved. No fib or SVT. 3. S/P Respiratory failure with Terminal extubation. On oxygen. 4. S/P Pneumonia off abx 5. Pancreatitis. 6. ARF.Resolved 7. Marijuana use. 8. Suspect diffuse cerebral anoxia and edema with decorticate rigidity 9. Alcohol withdrawal. 10. Severe Hypernatremia. Resolved 11. Dysphagia.S/P PEG 12. DNR, DNI 13. Placement pending. DW RN Subjective Subjective No Sig change. GT feeding. Placement pending. Objective Last 24 Hour Vital Signs Date Time Temp Pulse Resp B/P (MAP) Pulse Ox O2 Delivery O2 Flow Rate FiO2 07/30/17 12:00 97.5 112 18 125/79 97 07/30/17 08:55 144/96 07/30/17 08:00 98.4 101 19 144/96 98 07/30/17 04:20 99.2 130 19 122/79 98 07/30/17 00:36 100.4 143 19 118/71 98 07/29/17 22:41 99.5 07/29/17 22:11 101.5 07/29/17 20:21 127/76 07/29/17 20:00 101.5 140 20 120/76 98 07/29/17 16:00 97.9 123 19 126/79 99 07/29/17 16:00 Room Air Intake and Output 07/29/17 07/30/17 19:00 07:00 Intake Total 1560 ml 1705 ml Output Total 600 ml 600 ml Balance 960 ml 1105 ml Free Water 130 ml 220 ml IV Total 825 ml 825 ml Tube Feeding 605 ml 660 ml Output Urine Total 600 ml 600 ml # Voids 2 # Bowel Movements 1 4 Objective HEAD AND NECK: No JVD. LUNGS: Clear. CARDIOVASCULAR: Tachy S1 and S2 with no gallop or murmur. ABDOMEN: PEG in place EXTREMITIES: No pitting edema. ALBERT ROWAN Jul 30, 2017 13:42
--- NOTE | 2017-07-30 13:47 | Pulmonology Progress Note ---
Assessment/Plan Assessment/Plan IMPRESSION: 1. Respiratory failure; extubated 2. Cannabis usage. 3. Diabetic ketoacidosis. 4. Troponin leak. 5. Tachycardia. 6. Anoxic brain injury DISCUSSION: Continue present management and care. Now on room air Continue oral airway prn/suctioning Subjective Interval Events: None Constitutional: Reports: no symptoms HEENT: Repors: no symptoms Respiratory: Reports: no symptoms Cardiovascular: Reports: no symptoms Gastrointestinal/Abdominal: Reports: no symptoms Allergies: Coded Allergies: No Known Allergies (Unverified , 06/15/17) Objective Last 24 Hour Vital Signs Date Time Temp Pulse Resp B/P (MAP) Pulse Ox O2 Delivery O2 Flow Rate FiO2 07/30/17 12:00 97.5 112 18 125/79 97 07/30/17 08:55 144/96 07/30/17 08:00 98.4 101 19 144/96 98 07/30/17 04:20 99.2 130 19 122/79 98 07/30/17 00:36 100.4 143 19 118/71 98 07/29/17 22:41 99.5 07/29/17 22:11 101.5 07/29/17 20:21 127/76 07/29/17 20:00 101.5 140 20 120/76 98 07/29/17 16:00 97.9 123 19 126/79 99 07/29/17 16:00 Room Air Intake and Output 07/29/17 07/30/17 19:00 07:00 Intake Total 1560 ml 1705 ml Output Total 600 ml 600 ml Balance 960 ml 1105 ml Free Water 130 ml 220 ml IV Total 825 ml 825 ml Tube Feeding 605 ml 660 ml Output Urine Total 600 ml 600 ml # Voids 2 # Bowel Movements 1 4 General Appearance: no acute distress HEENT: normocephalic Respiratory/Chest: chest wall non-tender, lungs clear Cardiovascular: normal peripheral pulses, normal rate Abdomen: normal bowel sounds Current Medications Medications (Trade) Dose Ordered Sig/Conrado Route PRN Reason Start Time Stop Time Status Last Admin Dose Admin Acetaminophen (Tylenol) 500 mg Q6H PRN GT Mild Pain/Temp > 100.5 07/26/17 18:00 08/25/17 17:59 07/29/17 22:11 Clonidine HCl (Catapres Tab) 0.1 mg Q2H PRN GT SBP > 170mmHg 07/26/17 18:00 08/19/17 13:59 Collagenase (Santyl) 1 applic BEDTIME TOPIC 07/26/17 21:00 08/12/17 14:59 07/29/17 20:57 Dextrose/ Electrolytes 1,000 ml @ 75 mls/hr [id number] IV 07/26/17 18:00 08/07/17 14:59 07/30/17 13:12 Insulin Aspart (NovoLOG) Q6HR SUBQ 07/26/17 18:45 08/05/17 18:44 07/30/17 12:20 Insulin Detemir (Levemir) 25 units Q12HR SUBQ 07/29/17 09:00 08/28/17 08:59 07/29/17 20:57 Losartan Potassium (Cozaar) 50 mg EVERY 12 HOURS GT 07/26/17 21:00 08/19/17 20:59 07/30/17 08:55 Paulo Floyd MD Jul 30, 2017 13:46
[2017-07-30 15:55] VITALS: BP 118/81
--- NOTE | 2017-07-30 16:56 | Nephrology Progress Note ---
Assessment/Plan Problem List: (1) Hypernatremia Assessment: Improved (2) Hypokalemia Assessment: corrected (3) Fever (4) Acidosis (5) Respiratory distress (6) Pancreatitis (7) Elevated troponin (8) Alcohol withdrawal (9) Pneumonia (10) Sepsis (11) Cardiopulmonary arrest (12) Metabolic acidosis (13) DKA (diabetic ketoacidosis) (14) Renal failure Assessment: Improved (15) DNR (do not resuscitate) Plan Continue current treatment plan D5W+KCL@ 75cc/hr Monitor temp Suspect diffuse cerebral anoxia and edema with decorticate rigidity per Dr Cano. Monitor lytes, correct prn Monitor neuro status, f/u with neurology rec G-tube feeding per GI Strict glycemic control Monitor renal function on current abx Abx per ID Monitor intake and output Continue carpenter AM labs DC plan Subjective ROS Limited/Unobtainable: Yes Subjective Seen in medsurg unit, in no apparent distress, tube feeding ongoing Objective Objective Last 24 Hour Vital Signs Date Time Temp Pulse Resp B/P (MAP) Pulse Ox O2 Delivery O2 Flow Rate FiO2 07/30/17 15:55 97.7 117 20 118/81 100 Room Air 07/30/17 12:00 97.5 112 18 125/79 97 07/30/17 08:55 144/96 07/30/17 08:00 98.4 101 19 144/96 98 07/30/17 04:20 99.2 130 19 122/79 98 07/30/17 00:36 100.4 143 19 118/71 98 07/29/17 22:41 99.5 07/29/17 22:11 101.5 07/29/17 20:21 127/76 07/29/17 20:00 101.5 140 20 120/76 98 Intake and Output 07/29/17 07/30/17 19:00 07:00 Intake Total 1560 ml 1705 ml Output Total 600 ml 600 ml Balance 960 ml 1105 ml Free Water 130 ml 220 ml IV Total 825 ml 825 ml Tube Feeding 605 ml 660 ml Output Urine Total 600 ml 600 ml # Voids 2 # Bowel Movements 1 4 Height (Feet): 5 Height (Inches): 6.00 Weight (Pounds): 120 General Appearance: no apparent distress Neck: limited range of motion, muscle spasm Cardiovascular: normal rate, no JVD Respiratory/Chest: decreased breath sounds Abdomen: soft, other - peg Genitourinary/Rectal: other - carpenter cath Extremities: trace edema Neurologic: unresponsive Hannah Johnson N.P. Jul 30, 2017 16:56
[2017-07-30 20:00] VITALS: BP 123/90
[2017-07-30] MEDS: Acetaminophen 650mg/20.3ml GT PRN (20:50)
--- NOTE | 2017-07-30 21:15 | Infectious Diseases Prog Note ---
Assessment/Plan Problems: (1) Fever Assessment & Plan: rule out sepsis or HCAP , will send blood culture and order CXR to rule out new infiltrates , will send UA to rule out urine infection, and stool for C diff . will start vancomycin and zosyn empiric coverage for now pending cultures , continue tylenol empirically. (2) Anoxic cerebral edema Assessment & Plan: with no significant improvement, has poor prognosis , has PEG placement as per family , was changed to DNR as per family request as of , he is still postural, spastic and unresponsive . (3) Dysphagia Assessment & Plan: he received permanent tube feeding for nutritional support , as per family request (4) Excessive salivation Assessment & Plan: watch out for aspiration, keep oral suctioning . keep head of bed elevated all time Subjective ROS Limited/Unobtainable: Yes Allergies: Coded Allergies: No Known Allergies (Unverified , 06/15/17) Subjective he is still unresponsive , on high flow oxygen , postural and spastic in the lower extremities , doesn't follow commands , afebrile .opens eyes spontaneously on/off . doesn't track. had permanent PEG tube placed, no significant oral secretions Objective Vital Signs Last 24 Hour Vital Signs Date Time Temp Pulse Resp B/P (MAP) Pulse Ox O2 Delivery O2 Flow Rate FiO2 07/30/17 20:51 118/81 07/30/17 20:50 100.4 07/30/17 20:00 100.4 103 20 123/90 99 07/30/17 15:55 97.7 117 20 118/81 100 Room Air 07/30/17 12:00 97.5 112 18 125/79 97 07/30/17 08:55 144/96 07/30/17 08:00 98.4 101 19 144/96 98 07/30/17 04:20 99.2 130 19 122/79 98 07/30/17 00:36 100.4 143 19 118/71 98 07/29/17 22:41 99.5 07/29/17 22:11 101.5 Height (Feet): 5 Height (Inches): 6.00 Weight (Pounds): 120 General Appearance: WD/WN, no acute distress HEENT: normocephalic, atraumatic, anicteric, mucous membranes moist Respiratory/Chest: normal breath sounds, no respiratory distress, no accessory muscle use, decreased breath sounds, crackles/rales Cardiovascular: normal peripheral pulses, normal rate, regular rhythm, no gallop/murmur, no JVD Abdomen: normal bowel sounds, soft, non tender, no organomegaly, non distended , no mass, no scars Genitourinary: normal external genitalia Extremities: no cyanosis, no clubbing Skin: no rash, no lesions, ulcers Neurologic/Psychiatric: unresponsiveness Current Medications Medications (Trade) Dose Ordered Sig/Conrado Route PRN Reason Start Time Stop Time Status Last Admin Dose Admin Acetaminophen (Tylenol) 500 mg Q6H PRN GT Mild Pain/Temp > 100.5 07/26/17 18:00 08/25/17 17:59 07/30/17 20:50 Clonidine HCl (Catapres Tab) 0.1 mg Q2H PRN GT SBP > 170mmHg 07/26/17 18:00 08/19/17 13:59 Collagenase (Santyl) 1 applic BEDTIME TOPIC 07/26/17 21:00 08/12/17 14:59 07/30/17 20:50 Dextrose/ Electrolytes 1,000 ml @ 75 mls/hr [id number] IV 07/26/17 18:00 08/07/17 14:59 07/30/17 13:12 Insulin Aspart (NovoLOG) Q6HR SUBQ 07/26/17 18:45 08/05/17 18:44 07/30/17 18:02 Insulin Detemir (Levemir) 25 units Q12HR SUBQ 07/29/17 09:00 08/28/17 08:59 07/30/17 20:56 Losartan Potassium (Cozaar) 50 mg EVERY 12 HOURS GT 07/26/17 21:00 08/19/17 20:59 07/30/17 08:55 Saad Cummings M.D. Jul 30, 2017 21:15
[2017-07-30] MEDS ORDERED: Vancomycin 1gm/D5W 275ml IVPB ONE ×2 (22:30)
[2017-07-30 23:53] LABS: APPEARANCE,URINE CLEAR; BILIRUBIN, URINE NEGATIVE (NEGATIVE); COLOR,URINE PALE YELLOW; GLUCOSE, URINE (UA) 4+ (NEGATIVE); KETONES,URINE NEGATIVE (NEGATIVE); LEUKOCYTE ESTERASE ,URINE NEGATIVE (NEGATIVE); NITRITE,URINE NEGATIVE (NEGATIVE); PH,URINE 6 (4.5-8.0); UROBILINOGEN,URINE NORMAL MG/DL (0.0-1.0)
[2017-07-30 23:57] LABS: PROTEIN,URINE NEGATIVE (NEGATIVE)
[2017-07-31] VITALS: BP 120/68
[2017-07-31] MEDS: NovoLOG Insulin Flexpen SUBQ SCH ×5 (01:00→23:10)
[2017-07-31] MEDS: Piperacillin/Tazobactam 3.375 GM in D5W 110 ML IVPB SCH ×2 (02:29→12:04)
[2017-07-31 04:00] VITALS: BP 125/80
[2017-07-31] MEDS: D5W w/KCl 20mEq 1,000 ML IV SCH ×2 (05:23→18:37)
[2017-07-31 08:00] VITALS: BP 101/66
[2017-07-31] MEDS: Losartan 50mg tab GT SCH ×2 (09:00→20:38)
--- NOTE | 2017-07-31 09:47 | Diagnostic Imaging Report ---
Indication: , Technique: One view of the chest Comparison: 07/23/2017 Findings: Nodular and linear opacity at the left lung base is again demonstrated and appears similar to the previous exam. Reticular opacities are again demonstrated in the right upper lobe. Central bronchial wall thickening again demonstrated. The remaining lungs and pleural spaces are clear. Gastrostomy is again demonstrated Impression: Left basilar linear and nodular opacities, probably residual of parenchymal infiltrates demonstrated on multiple earlier exams. Nonetheless, follow-up to resolution is recommended. Reticular right upper lobe opacities, probably chronic. No new infiltrates Gastrostomy
[2017-07-31] MEDS: Vancomycin 750mg/NS 250ml IVPB SCH ×2 (09:57→21:02)
[2017-07-31] MEDS: Levemir Flexpen SUBQ SCH ×2 (10:01→20:40)
[2017-07-31 12:00] VITALS: BP 120/78
--- NOTE | 2017-07-31 12:55 | GI Progress Note ---
Assessment/Plan Problems: (1) Anoxic cerebral edema ICD Codes: G93.6 - Cerebral edema; R09.02 - Hypoxemia SNOMED: 7043444, 046011761 (2) Transaminitis ICD Codes: R74.0 - Nonspecific elevation of levels of transaminase and lactic acid dehydrogenase [LDH] SNOMED: 595650168, 961800905 (3) Alcohol withdrawal ICD Codes: F10.239 - Alcohol dependence with withdrawal, unspecified SNOMED: 990507069 (4) Pancreatitis ICD Codes: K85.90 - Acute pancreatitis without necrosis or infection, unspecified SNOMED: 32114472 Status: unchanged Status Narrative Discussed with Dr. Rico. Assessment/Plan s/p PEG GTFs per RD electrolyte correction fu labs dc planning Subjective Subjective limited Objective Last 24 Hour Vital Signs Date Time Temp Pulse Resp B/P (MAP) Pulse Ox O2 Delivery O2 Flow Rate FiO2 07/31/17 12:00 96.1 104 19 120/78 100 07/31/17 09:00 101/66 07/31/17 08:00 97.7 91 19 101/66 99 07/31/17 04:00 97.5 118 19 125/80 99 07/31/17 00:00 97.8 105 20 120/68 100 07/30/17 22:05 98.2 Room Air 07/30/17 21:20 98.2 07/30/17 20:51 118/81 07/30/17 20:50 100.4 07/30/17 20:00 100.4 103 20 123/90 99 07/30/17 15:55 97.7 117 20 118/81 100 Room Air Intake and Output 07/30/17 07/31/17 19:00 07:00 Intake Total 925 ml Output Total 200 ml Balance 725 ml Free Water 120 ml IV Total 750 ml Tube Feeding 55 ml Output Urine Total 200 ml # Voids 2 # Bowel Movements 2 2 Laboratory Tests Test 07/30/17 21:25 Urine Color Pale yellow Urine Appearance Clear Urine pH 6 (4.5-8.0) Urine Specific [place] 1.020 (1.005-1.035) Urine Protein Negative (NEGATIVE) Urine Glucose (UA) 4+ (NEGATIVE) H Urine Ketones Negative (NEGATIVE) Urine Occult Blood Negative (NEGATIVE) Urine Nitrite Negative (NEGATIVE) Urine Bilirubin Negative (NEGATIVE) Urine Urobilinogen Normal MG/DL (0.0-1.0) Urine Leukocyte Esterase Negative (NEGATIVE) Urine RBC 0 /HPF (0 - 0) Urine WBC 0 /HPF (0 - 0) Urine Squamous Epithelial Cells Few /LPF (NONE/OCC) Urine Amorphous Sediment Moderate /LPF (NONE) H Urine Bacteria Few /HPF (NONE) Height (Feet): 5 Height (Inches): 6.00 Weight (Pounds): 120 General Appearance: no apparent distress, thin Cardiovascular: normal rate Respiratory/Chest: normal breath sounds, no respiratory distress Abdominal Exam: normal bowel sounds, non tender, soft, GT site - c/d/i Lashawn Mason N.P. Jul 31, 2017 12:55
--- NOTE | 2017-07-31 14:56 | Infectious Diseases Prog Note ---
Assessment/Plan Problems: (1) Fever Assessment & Plan: resolved source? sepsis VS HCAP , pending blood culture , CXR didn't show any new infiltrates , UA is not suggestive of urine infection. stool for C diff is pending . will continue vancomycin and zosyn empiric coverage for now pending cultures , continue Tylenol empirically. (2) Anoxic cerebral edema Assessment & Plan: with no significant improvement, has poor prognosis , has PEG placement as per family , was changed to DNR as per family request as of , he is still postural, spastic and unresponsive . (3) Dysphagia Assessment & Plan: he received permanent tube feeding for nutritional support , as per family request (4) Excessive salivation Assessment & Plan: watch out for aspiration, keep oral suctioning . keep head of bed elevated all time Subjective ROS Limited/Unobtainable: Yes Allergies: Coded Allergies: No Known Allergies (Unverified , 06/15/17) Subjective unresponsive , on high flow oxygen , postural and spastic in the lower extremities , doesn't follow commands , afebrile . he doesn't open his eyes spontaneously on/off . doesn't track. had permanent PEG tube placed, no significant oral secretions Objective Vital Signs Last 24 Hour Vital Signs Date Time Temp Pulse Resp B/P (MAP) Pulse Ox O2 Delivery O2 Flow Rate FiO2 07/31/17 12:00 96.1 104 19 120/78 100 07/31/17 09:00 101/66 07/31/17 08:00 97.7 91 19 101/66 99 07/31/17 04:00 97.5 118 19 125/80 99 07/31/17 00:00 97.8 105 20 120/68 100 07/30/17 22:05 98.2 Room Air 07/30/17 21:20 98.2 07/30/17 20:51 118/81 07/30/17 20:50 100.4 07/30/17 20:00 100.4 103 20 123/90 99 07/30/17 15:55 97.7 117 20 118/81 100 Room Air Height (Feet): 5 Height (Inches): 6.00 Weight (Pounds): 120 General Appearance: WD/WN, no acute distress HEENT: normocephalic, atraumatic, no JVD Respiratory/Chest: normal breath sounds, no respiratory distress, no accessory muscle use, decreased breath sounds Cardiovascular: normal peripheral pulses, normal rate, regular rhythm, no gallop/murmur, no JVD Abdomen: normal bowel sounds, soft, non tender, no organomegaly, non distended , no mass, other - PEG tube site was ok Extremities: no cyanosis, no clubbing Skin: no rash, no lesions, no ulcers Lymphatic: no neck adenopathy, no groin adenopathy Laboratory Tests Test 07/30/17 21:25 Urine Color Pale yellow Urine Appearance Clear Urine pH 6 (4.5-8.0) Urine Specific [place] 1.020 (1.005-1.035) Urine Protein Negative (NEGATIVE) Urine Glucose (UA) 4+ (NEGATIVE) H Urine Ketones Negative (NEGATIVE) Urine Occult Blood Negative (NEGATIVE) Urine Nitrite Negative (NEGATIVE) Urine Bilirubin Negative (NEGATIVE) Urine Urobilinogen Normal MG/DL (0.0-1.0) Urine Leukocyte Esterase Negative (NEGATIVE) Urine RBC 0 /HPF (0 - 0) Urine WBC 0 /HPF (0 - 0) Urine Squamous Epithelial Cells Few /LPF (NONE/OCC) Urine Amorphous Sediment Moderate /LPF (NONE) H Urine Bacteria Few /HPF (NONE) Current Medications Medications (Trade) Dose Ordered Sig/Conrado Route PRN Reason Start Time Stop Time Status Last Admin Dose Admin Acetaminophen (Tylenol) 500 mg Q6H PRN GT Mild Pain/Temp > 100.5 07/26/17 18:00 08/25/17 17:59 07/30/17 20:50 Clonidine HCl (Catapres Tab) 0.1 mg Q2H PRN GT SBP > 170mmHg 07/26/17 18:00 08/19/17 13:59 Collagenase (Santyl) 1 applic BEDTIME TOPIC 07/26/17 21:00 08/12/17 14:59 07/30/17 20:50 Dextrose/ Electrolytes 1,000 ml @ 75 mls/hr [id number] IV 07/26/17 18:00 08/07/17 14:59 07/31/17 05:23 Insulin Aspart (NovoLOG) Q6HR SUBQ 07/26/17 18:45 08/05/17 18:44 07/31/17 12:12 Insulin Detemir (Levemir) 30 units Q12HR SUBQ 07/31/17 09:00 08/30/17 08:59 07/31/17 10:01 Losartan Potassium (Cozaar) 50 mg EVERY 12 HOURS GT 07/26/17 21:00 08/19/17 20:59 07/30/17 08:55 Piperacillin Sod/ Tazobactam Sod 3.375 gm/Sodium Chloride 110 ml @ 27.5 mls/hr Q8HR@0000,0800,1600 IVPB 08/01/17 00:00 08/08/17 00:00 Vancomycin HCl (Vanco rx to dose) 1 ea DAILY PRN MISC Per rx protocol 07/30/17 21:15 08/29/17 21:14 Vancomycin/Sodium Chloride 250 ml @ 166.667 mls/hr Q12HR@1000,2200 IVPB 07/31/17 10:00 08/05/17 09:59 07/31/17 09:57 Saad Cummings M.D. Jul 31, 2017 14:56
[2017-07-31 16:00] VITALS: BP 121/83
[2017-07-31] MEDS ORDERED: Tubing IV Secondary IV ONE (16:01)
--- NOTE | 2017-07-31 16:45 | Geriatric Medicine Prog Note ---
DATE: 06/30/2017 The patient remained on 456. SUBJECTIVE: WILL Start G-tube feedings Glucerna 1.2 55 mL per hour per G-tube. OBJECTIVE: VITAL SIGNS: Blood pressure 120/68, pulse 105, respiratory rate 20, and temperature 97.8. RESPIRATORY: Clear. CARDIOVASCULAR: Regular. LABORATORY DATA: Glucose of 330. ASSESSMENT: Diabetes mellitus, _increased by stress PLAN: Reduce Levemir back to 30 units q.12 h. and sliding scale NovoLog q.6 h. Hold Levemir if glucose is less than 100. Eugene Layton M.D. DR: LILIANA JOB#: [id number] CC: ARPITA
[2017-07-31 17:02] LABS: BASOPHILS % (AUTO) 0.7 % (0.0-2.0); EOSINOPHILS % (AUTO) 7.3 % (0.0-3.0); HEMATOCRIT 27.2 % (42.0-52.0); HEMOGLOBIN 9.1 G/DL (14.2-18.0); LYMPHOCYTES % (AUTO) 13.6 % (20.0-45.0); MEAN CORPUSCULAR VOLUME 96 FL (80-99); MONOCYTES % (AUTO) 15.1 % (1.0-10.0); NEUTROPHILS % (AUTO) 63.3 % (45.0-75.0); PLATELET COUNT 196 K/UL (150-450); RED BLOOD COUNT 2.85 M/UL (4.70-6.10); RED CELL DISTRIBUTION WIDTH 11.5 % (11.6-14.8); WHITE BLOOD COUNT 6.2 K/UL (4.8-10.8)
[2017-07-31 17:14] LABS: ALANINE AMINOTRANSFERASE 44 U/L (12-78); ALBUMIN 2.4 G/DL (3.4-5.0); ALBUMIN/GLOBULIN RATIO 0.6 (1.0-2.7); ALKALINE PHOSPHATASE 85 U/L (46-116); ANION GAP 8 mmol/L (5-15); ASPARTATE AMINO TRANSFERASE 38 U/L (15-37); BILIRUBIN,TOTAL 0.1 MG/DL (0.2-1.0); BLOOD UREA NITROGEN 17 mg/dL (7-18); CALCIUM 9.6 MG/DL (8.5-10.1); CARBON DIOXIDE 30 MMOL/L (21-32); CHLORIDE 104 MMOL/L (98-107); CREATININE 0.5 MG/DL (0.55-1.30); POTASSIUM 3.8 MMOL/L (3.5-5.1); SODIUM 142 MMOL/L (136-145)
--- NOTE | 2017-07-31 17:43 | Cardiac Electrophysiology PN ---
Assessment/Plan Assessment/Plan 1. Troponin leak due to renal failure. EF 60%. 2. Sinus tachy due to sepsis. No fib or SVT. 3. S/P Respiratory failure, S/P Terminal extubation. On oxygen. 4. S/P Pneumonia off abx 5. Pancreatitis. 6. ARF.Resolved 7. Marijuana use. 8. Suspect diffuse cerebral anoxia and edema with decorticate rigidity 9. Alcohol withdrawal. 10. Severe Hypernatremia. Resolved 11. Dysphagia.S/P PEG 12. DNR, DNI 13. Placement pending. REFUGIO RN Subjective Subjective No change.GT feeding on going. Placement pending. Objective Last 24 Hour Vital Signs Date Time Temp Pulse Resp B/P (MAP) Pulse Ox O2 Delivery O2 Flow Rate FiO2 07/31/17 16:00 98.1 113 19 121/83 100 98.1 07/31/17 12:00 96.1 104 19 120/78 100 07/31/17 09:00 101/66 07/31/17 08:00 97.7 91 19 101/66 99 07/31/17 04:00 97.5 118 19 125/80 99 07/31/17 00:00 97.8 105 20 120/68 100 07/30/17 22:05 98.2 Room Air 07/30/17 21:20 98.2 07/30/17 20:51 118/81 07/30/17 20:50 100.4 07/30/17 20:00 100.4 103 20 123/90 99 Intake and Output 07/30/17 07/31/17 19:00 07:00 Intake Total 925 ml Output Total 200 ml Balance 725 ml Free Water 120 ml IV Total 750 ml Tube Feeding 55 ml Output Urine Total 200 ml # Voids 2 # Bowel Movements 2 2 Laboratory Tests Test 07/30/17 21:25 07/31/17 16:40 Urine Color Pale yellow Urine Appearance Clear Urine pH 6 (4.5-8.0) Urine Specific [place] 1.020 (1.005-1.035) Urine Protein Negative (NEGATIVE) Urine Glucose (UA) 4+ (NEGATIVE) H Urine Ketones Negative (NEGATIVE) Urine Occult Blood Negative (NEGATIVE) Urine Nitrite Negative (NEGATIVE) Urine Bilirubin Negative (NEGATIVE) Urine Urobilinogen Normal MG/DL (0.0-1.0) Urine Leukocyte Esterase Negative (NEGATIVE) Urine RBC 0 /HPF (0 - 0) Urine WBC 0 /HPF (0 - 0) Urine Squamous Epithelial Cells Few /LPF (NONE/OCC) Urine Amorphous Sediment Moderate /LPF (NONE) H Urine Bacteria Few /HPF (NONE) White Blood Count 6.2 K/UL (4.8-10.8) Red Blood Count 2.85 M/UL (4.70-6.10) L Hemoglobin 9.1 G/DL (14.2-18.0) L Hematocrit 27.2 % (42.0-52.0) L Mean Corpuscular Volume 96 FL (80-99) Mean Corpuscular Hemoglobin 32.2 PG (27.0-31.0) H Mean Corpuscular Hemoglobin Concent 33.6 G/DL (32.0-36.0) Red Cell Distribution Width 11.5 % (11.6-14.8) L Platelet Count 196 K/UL (150-450) Mean Platelet Volume 8.4 FL (6.5-10.1) Neutrophils (%) (Auto) 63.3 % (45.0-75.0) Lymphocytes (%) (Auto) 13.6 % (20.0-45.0) L Monocytes (%) (Auto) 15.1 % (1.0-10.0) H Eosinophils (%) (Auto) 7.3 % (0.0-3.0) H Basophils (%) (Auto) 0.7 % (0.0-2.0) Sodium Level 142 MMOL/L (136-145) Potassium Level 3.8 MMOL/L (3.5-5.1) Chloride Level 104 MMOL/L (98-107) Carbon Dioxide Level 30 MMOL/L (21-32) Anion Gap 8 mmol/L (5-15) Blood Urea Nitrogen 17 mg/dL (7-18) Creatinine 0.5 MG/DL (0.55-1.30) L Estimat Glomerular Filtration Rate > 60 mL/min (>60) Glucose Level 161 MG/DL (74-106) H Calcium Level 9.6 MG/DL (8.5-10.1) Total Bilirubin 0.1 MG/DL (0.2-1.0) L Aspartate Amino Transf (AST/SGOT) 38 U/L (15-37) H Alanine Aminotransferase (ALT/SGPT) 44 U/L (12-78) Alkaline Phosphatase 85 U/L (46-116) Total Protein 6.6 G/DL (6.4-8.2) Albumin 2.4 G/DL (3.4-5.0) L Globulin 4.2 g/dL Albumin/Globulin Ratio 0.6 (1.0-2.7) L Objective HEAD AND NECK: No JVD. LUNGS: Clear. CARDIOVASCULAR: Tachy S1 and S2 with no gallop or murmur. ABDOMEN: PEG in place EXTREMITIES: No pitting edema. ALBERT ROWAN Jul 31, 2017 17:43
[2017-07-31 20:00] VITALS: BP 132/82
--- NOTE | 2017-07-31 22:50 | Nephrology Progress Note ---
Assessment/Plan Problem List: (1) Hyponatremia Assessment: resolved. (2) Sepsis Assessment: improving. (3) Alcohol withdrawal (4) Pneumonia Assessment: resolving. (5) Cardiopulmonary arrest (6) Metabolic acidosis Assessment: resolved. (7) DKA (diabetic ketoacidosis) Assessment: resolved. (8) Transaminitis (9) Hypokalemia (10) Hypernatremia Assessment: resolved. (11) Anoxic encephalopathy syndrome (12) Anoxic cerebral edema (13) Shock liver (14) Fever Assessment: resolved. (15) Respiratory distress (16) Pancreatitis Assessment: resolved (17) Elevated troponin Plan pulm following. FULL CODE. S/p PEG. Monitor off abx. cardio and neuro following. d/w RN. monitor labs. d/c planning - snf placement pending or home with hh. f/u bcx. ID following. Subjective Subjective Had fever. but better. Objective Objective Last 24 Hour Vital Signs Date Time Temp Pulse Resp B/P (MAP) Pulse Ox O2 Delivery O2 Flow Rate FiO2 07/31/17 20:38 121/83 07/31/17 20:00 98.8 114 20 132/82 99 Room Air 98.8 07/31/17 16:00 98.1 113 19 121/83 100 98.1 07/31/17 12:00 96.1 104 19 120/78 100 07/31/17 09:00 101/66 07/31/17 08:00 97.7 91 19 101/66 99 07/31/17 04:00 97.5 118 19 125/80 99 07/31/17 00:00 97.8 105 20 120/68 100 Intake and Output 07/30/17 07/31/17 19:00 07:00 Intake Total 925 ml Output Total 200 ml Balance 725 ml Free Water 120 ml IV Total 750 ml Tube Feeding 55 ml Output Urine Total 200 ml # Voids 2 # Bowel Movements 2 2 Laboratory Tests 07/31/17 16:40: White Blood Count 6.2, Red Blood Count 2.85L, Hemoglobin 9.1L, Hematocrit 27.2L , Mean Corpuscular Volume 96, Mean Corpuscular Hemoglobin 32.2H, Mean Corpuscular Hemoglobin Concent 33.6, Red Cell Distribution Width 11.5L, Platelet Count 196, Mean Platelet Volume 8.4, Neutrophils (%) (Auto) 63.3, Lymphocytes (%) (Auto) 13.6L, Monocytes (%) (Auto) 15.1H, Eosinophils (%) (Auto ) 7.3H, Basophils (%) (Auto) 0.7, Sodium Level 142, Potassium Level 3.8, Chloride Level 104, Carbon Dioxide Level 30, Anion Gap 8, Blood Urea Nitrogen 17 , Creatinine 0.5L, Estimat Glomerular Filtration Rate > 60, Glucose Level 161H, Calcium Level 9.6, Total Bilirubin 0.1L, Aspartate Amino Transf (AST/SGOT) 38H, Alanine Aminotransferase (ALT/SGPT) 44, Alkaline Phosphatase 85, Total Protein 6.6, Albumin 2.4L, Globulin 4.2, Albumin/Globulin Ratio 0.6L Height (Feet): 5 Height (Inches): 6.00 Weight (Pounds): 120 General Appearance: no apparent distress Cardiovascular: normal rate, regular rhythm Respiratory/Chest: lungs clear Abdomen: non tender, soft Neurologic: unresponsive REMIGIO KNOX Jul 31, 2017 22:50
[2017-07-31] MEDS: Piperacillin/Tazobactam 3.375 GM in NS 110 ML IVPB SCH (23:02)
[2017-08-01] VITALS: BP 130/84
[2017-08-01 04:00] VITALS: BP 139/65
--- NOTE | 2017-08-01 05:28 | General Progress Note ---
Assessment/Plan Problem List: (1) DKA (diabetic ketoacidosis) ICD Codes: E13.10 - Other specified diabetes mellitus with ketoacidosis without coma SNOMED: 64424526, 532156399 Qualifiers: Qualified Codes: E10.11 - Type 1 diabetes mellitus with ketoacidosis with coma (2) Metabolic acidosis ICD Codes: E87.2 - Acidosis SNOMED: 12412704 (3) Cardiopulmonary arrest ICD Codes: I46.9 - Cardiac arrest, cause unspecified SNOMED: 516583355 Assessment/Plan continue Levemir 30 units bid continue NISS Subjective ROS Limited/Unobtainable: No Allergies: Coded Allergies: No Known Allergies (Unverified , 06/15/17) Subjective events noted - interval notes reviewed Objective Last 24 Hour Vital Signs Date Time Temp Pulse Resp B/P (MAP) Pulse Ox O2 Delivery O2 Flow Rate FiO2 08/01/17 00:00 99.1 111 20 130/84 100 Room Air 99.1 07/31/17 20:38 121/83 07/31/17 20:00 98.8 114 20 132/82 99 Room Air 98.8 07/31/17 16:00 98.1 113 19 121/83 100 98.1 07/31/17 12:00 96.1 104 19 120/78 100 07/31/17 09:00 101/66 07/31/17 08:00 97.7 91 19 101/66 99 Intake and Output 07/31/17 08/01/17 19:00 07:00 Intake Total 1055.000 ml 885.0 ml Output Total 850 ml Balance 205.000 ml 885.0 ml IV Total 1000.000 ml 335.0 ml Tube Feeding 55 ml 550 ml Output Urine Total 850 ml # Bowel Movements 3 2 Laboratory Tests 07/31/17 16:40: White Blood Count 6.2, Red Blood Count 2.85L, Hemoglobin 9.1L, Hematocrit 27.2L , Mean Corpuscular Volume 96, Mean Corpuscular Hemoglobin 32.2H, Mean Corpuscular Hemoglobin Concent 33.6, Red Cell Distribution Width 11.5L, Platelet Count 196, Mean Platelet Volume 8.4, Neutrophils (%) (Auto) 63.3, Lymphocytes (%) (Auto) 13.6L, Monocytes (%) (Auto) 15.1H, Eosinophils (%) (Auto ) 7.3H, Basophils (%) (Auto) 0.7, Sodium Level 142, Potassium Level 3.8, Chloride Level 104, Carbon Dioxide Level 30, Anion Gap 8, Blood Urea Nitrogen 17 , Creatinine 0.5L, Estimat Glomerular Filtration Rate > 60, Glucose Level 161H, Calcium Level 9.6, Total Bilirubin 0.1L, Aspartate Amino Transf (AST/SGOT) 38H, Alanine Aminotransferase (ALT/SGPT) 44, Alkaline Phosphatase 85, Total Protein 6.6, Albumin 2.4L, Globulin 4.2, Albumin/Globulin Ratio 0.6L Height (Feet): 5 Height (Inches): 6.00 Weight (Pounds): 120 General Appearance: no apparent distress Neck: normal alignment Cardiovascular: normal rate Respiratory/Chest: lungs clear Abdomen: normal bowel sounds Objective Current Medications Medications (Trade) Dose Ordered Sig/Conrado Route PRN Reason Start Time Stop Time Status Last Admin Dose Admin Acetaminophen (Tylenol) 500 mg Q6H PRN GT Mild Pain/Temp > 100.5 07/26/17 18:00 08/25/17 17:59 07/30/17 20:50 Clonidine HCl (Catapres Tab) 0.1 mg Q2H PRN GT SBP > 170mmHg 07/26/17 18:00 08/19/17 13:59 Collagenase (Santyl) 1 applic BEDTIME TOPIC 07/26/17 21:00 08/12/17 14:59 07/31/17 20:38 Dextrose/ Electrolytes 1,000 ml @ 75 mls/hr [id number] IV 07/26/17 18:00 08/07/17 14:59 07/31/17 18:37 Insulin Aspart (NovoLOG) Q6HR SUBQ 07/26/17 18:45 08/05/17 18:44 07/31/17 23:10 Insulin Detemir (Levemir) 30 units Q12HR SUBQ 07/31/17 09:00 08/30/17 08:59 07/31/17 20:40 Losartan Potassium (Cozaar) 50 mg EVERY 12 HOURS GT 07/26/17 21:00 08/19/17 20:59 07/31/17 20:38 Piperacillin Sod/ Tazobactam Sod 3.375 gm/Sodium Chloride 110 ml @ 27.5 mls/hr Q8HR@0000,0800,1600 IVPB 08/01/17 00:00 08/08/17 00:00 07/31/17 23:02 Vancomycin HCl (Vanco rx to dose) 1 ea DAILY PRN MISC Per rx protocol 07/30/17 21:15 08/29/17 21:14 Vancomycin/Sodium Chloride 250 ml @ 166.667 mls/hr Q12HR@1000,2200 IVPB 07/31/17 10:00 08/05/17 09:59 07/31/17 21:02 Item Value Date Time Bedside Blood Glucose 172 mg/dl H 08/01/17 0000 Bedside Blood Glucose 148 mg/dl H 07/31/17 2040 Bedside Blood Glucose 155 mg/dl H 07/31/17 1843 Bedside Blood Glucose 263 mg/dl H 07/31/17 1212 JADIEL MARCANO Aug 01, 2017 05:28
[2017-08-01] MEDS: NovoLOG Insulin Flexpen SUBQ SCH ×4 (06:00→23:38)
--- NOTE | 2017-08-01 06:58 | Pulmonology Progress Note ---
Assessment/Plan Assessment/Plan IMPRESSION: 1. Respiratory failure; extubated 2. Cannabis usage. 3. Diabetic ketoacidosis. 4. Troponin leak. 5. Tachycardia. 6. Anoxic brain injury DISCUSSION: Continue present management and care. Now on room air Continue oral airway prn/suctioning Subjective Interval Events: none Constitutional: Reports: no symptoms HEENT: Repors: no symptoms Respiratory: Reports: no symptoms Cardiovascular: Reports: no symptoms Allergies: Coded Allergies: No Known Allergies (Unverified , 06/15/17) Objective Last 24 Hour Vital Signs Date Time Temp Pulse Resp B/P (MAP) Pulse Ox O2 Delivery O2 Flow Rate FiO2 08/01/17 04:00 97.9 76 22 139/65 98 Room Air 97.9 08/01/17 00:00 99.1 111 20 130/84 100 Room Air 99.1 07/31/17 20:38 121/83 07/31/17 20:00 98.8 114 20 132/82 99 Room Air 98.8 07/31/17 19:05 99 Room Air 21 07/31/17 19:05 Room Air 21 07/31/17 16:00 98.1 113 19 121/83 100 98.1 07/31/17 12:00 96.1 104 19 120/78 100 07/31/17 09:00 101/66 07/31/17 08:00 97.7 91 19 101/66 99 Intake and Output 07/31/17 08/01/17 19:00 07:00 Intake Total 1055.000 ml 960.0 ml Output Total 850 ml 350 ml Balance 205.000 ml 610.0 ml IV Total 1000.000 ml 410.0 ml Tube Feeding 55 ml 550 ml Output Urine Total 850 ml 350 ml # Bowel Movements 3 2 General Appearance: no acute distress HEENT: normocephalic Respiratory/Chest: chest wall non-tender, lungs clear Cardiovascular: normal peripheral pulses, normal rate Microbiology Date/Time Source Procedure Growth Status 07/30/17 11:00 Blood Blood Culture - Preliminary NO GROWTH AFTER 24 HOURS Resulted 07/30/17 10:50 Blood Blood Culture - Preliminary NO GROWTH AFTER 24 HOURS Resulted Laboratory Tests 07/31/17 16:40: White Blood Count 6.2, Red Blood Count 2.85L, Hemoglobin 9.1L, Hematocrit 27.2L , Mean Corpuscular Volume 96, Mean Corpuscular Hemoglobin 32.2H, Mean Corpuscular Hemoglobin Concent 33.6, Red Cell Distribution Width 11.5L, Platelet Count 196, Mean Platelet Volume 8.4, Neutrophils (%) (Auto) 63.3, Lymphocytes (%) (Auto) 13.6L, Monocytes (%) (Auto) 15.1H, Eosinophils (%) (Auto ) 7.3H, Basophils (%) (Auto) 0.7, Sodium Level 142, Potassium Level 3.8, Chloride Level 104, Carbon Dioxide Level 30, Anion Gap 8, Blood Urea Nitrogen 17 , Creatinine 0.5L, Estimat Glomerular Filtration Rate > 60, Glucose Level 161H, Calcium Level 9.6, Total Bilirubin 0.1L, Aspartate Amino Transf (AST/SGOT) 38H, Alanine Aminotransferase (ALT/SGPT) 44, Alkaline Phosphatase 85, Total Protein 6.6, Albumin 2.4L, Globulin 4.2, Albumin/Globulin Ratio 0.6L Current Medications Medications (Trade) Dose Ordered Sig/Conrado Route PRN Reason Start Time Stop Time Status Last Admin Dose Admin Acetaminophen (Tylenol) 500 mg Q6H PRN GT Mild Pain/Temp > 100.5 07/26/17 18:00 08/25/17 17:59 07/30/17 20:50 Clonidine HCl (Catapres Tab) 0.1 mg Q2H PRN GT SBP > 170mmHg 07/26/17 18:00 08/19/17 13:59 Collagenase (Santyl) 1 applic BEDTIME TOPIC 07/26/17 21:00 08/12/17 14:59 07/31/17 20:38 Dextrose/ Electrolytes 1,000 ml @ 75 mls/hr [id number] IV 07/26/17 18:00 08/07/17 14:59 07/31/17 18:37 Insulin Aspart (NovoLOG) Q6HR SUBQ 07/26/17 18:45 08/05/17 18:44 08/01/17 06:00 Insulin Detemir (Levemir) 30 units Q12HR SUBQ 07/31/17 09:00 08/30/17 08:59 07/31/17 20:40 Losartan Potassium (Cozaar) 50 mg EVERY 12 HOURS GT 07/26/17 21:00 08/19/17 20:59 07/31/17 20:38 Piperacillin Sod/ Tazobactam Sod 3.375 gm/Sodium Chloride 110 ml @ 27.5 mls/hr Q8HR@0000,0800,1600 IVPB 08/01/17 00:00 08/08/17 00:00 07/31/17 23:02 Vancomycin HCl (Vanco rx to dose) 1 ea DAILY PRN MISC Per rx protocol 07/30/17 21:15 08/29/17 21:14 Vancomycin/Sodium Chloride 250 ml @ 166.667 mls/hr Q12HR@1000,2200 IVPB 07/31/17 10:00 08/05/17 09:59 07/31/17 21:02 Paulo Floyd MD Aug 01, 2017 06:58
[2017-08-01 08:00] VITALS: BP 128/89
[2017-08-01] MEDS: D5W w/KCl 20mEq 1,000 ML IV SCH ×2 (08:00→20:40)
[2017-08-01] MEDS: Piperacillin/Tazobactam 3.375 GM in NS 110 ML IVPB SCH ×3 (08:01→23:35)
[2017-08-01] MEDS: Losartan 50mg tab GT SCH ×2 (08:02→20:40)
[2017-08-01] MEDS: Levemir Flexpen SUBQ SCH ×2 (08:05→20:41)
[2017-08-01] MEDS: Vancomycin 750mg/NS 250ml IVPB SCH (11:31)
[2017-08-01 12:00] VITALS: BP 119/89
--- NOTE | 2017-08-01 12:26 | GI Progress Note ---
Assessment/Plan Problems: (1) Anoxic cerebral edema ICD Codes: G93.6 - Cerebral edema; R09.02 - Hypoxemia SNOMED: 5715365, 924239547 (2) Transaminitis ICD Codes: R74.0 - Nonspecific elevation of levels of transaminase and lactic acid dehydrogenase [LDH] SNOMED: 202642056, 702941325 (3) Alcohol withdrawal ICD Codes: F10.239 - Alcohol dependence with withdrawal, unspecified SNOMED: 123761349 (4) Pancreatitis ICD Codes: K85.90 - Acute pancreatitis without necrosis or infection, unspecified SNOMED: 18128850 Status: unchanged Status Narrative Discussed with Dr. Rico. Assessment/Plan s/p PEG GTFs per RD electrolyte correction fu labs dc planning Subjective Subjective limited Objective Last 24 Hour Vital Signs Date Time Temp Pulse Resp B/P (MAP) Pulse Ox O2 Delivery O2 Flow Rate FiO2 08/01/17 08:02 128/89 08/01/17 08:00 98.5 117 20 128/89 100 98.5 08/01/17 04:00 97.9 76 22 139/65 98 Room Air 97.9 08/01/17 00:00 99.1 111 20 130/84 100 Room Air 99.1 07/31/17 20:38 121/83 07/31/17 20:00 98.8 114 20 132/82 99 Room Air 98.8 07/31/17 19:05 99 Room Air 21 07/31/17 19:05 Room Air 21 07/31/17 16:00 98.1 113 19 121/83 100 98.1 Intake and Output 07/31/17 08/01/17 19:00 07:00 Intake Total 1055.000 ml 960.0 ml Output Total 850 ml 350 ml Balance 205.000 ml 610.0 ml IV Total 1000.000 ml 410.0 ml Tube Feeding 55 ml 550 ml Output Urine Total 850 ml 350 ml # Bowel Movements 3 2 Laboratory Tests Test 07/31/17 16:40 08/01/17 09:30 White Blood Count 6.2 K/UL (4.8-10.8) Red Blood Count 2.85 M/UL (4.70-6.10) L Hemoglobin 9.1 G/DL (14.2-18.0) L Hematocrit 27.2 % (42.0-52.0) L Mean Corpuscular Volume 96 FL (80-99) Mean Corpuscular Hemoglobin 32.2 PG (27.0-31.0) H Mean Corpuscular Hemoglobin Concent 33.6 G/DL (32.0-36.0) Red Cell Distribution Width 11.5 % (11.6-14.8) L Platelet Count 196 K/UL (150-450) Mean Platelet Volume 8.4 FL (6.5-10.1) Neutrophils (%) (Auto) 63.3 % (45.0-75.0) Lymphocytes (%) (Auto) 13.6 % (20.0-45.0) L Monocytes (%) (Auto) 15.1 % (1.0-10.0) H Eosinophils (%) (Auto) 7.3 % (0.0-3.0) H Basophils (%) (Auto) 0.7 % (0.0-2.0) Sodium Level 142 MMOL/L (136-145) Potassium Level 3.8 MMOL/L (3.5-5.1) Chloride Level 104 MMOL/L (98-107) Carbon Dioxide Level 30 MMOL/L (21-32) Anion Gap 8 mmol/L (5-15) Blood Urea Nitrogen 17 mg/dL (7-18) Creatinine 0.5 MG/DL (0.55-1.30) L Estimat Glomerular Filtration Rate > 60 mL/min (>60) Glucose Level 161 MG/DL (74-106) H Calcium Level 9.6 MG/DL (8.5-10.1) Total Bilirubin 0.1 MG/DL (0.2-1.0) L Aspartate Amino Transf (AST/SGOT) 38 U/L (15-37) H Alanine Aminotransferase (ALT/SGPT) 44 U/L (12-78) Alkaline Phosphatase 85 U/L (46-116) Total Protein 6.6 G/DL (6.4-8.2) Albumin 2.4 G/DL (3.4-5.0) L Globulin 4.2 g/dL Albumin/Globulin Ratio 0.6 (1.0-2.7) L Vancomycin Level Trough 6.2 ug/mL (5.0-12.0) Microbiology Date/Time Source Procedure Growth Status 07/31/17 17:30 Stool Clostridium difficile Toxin Assay - Final Complete Height (Feet): 5 Height (Inches): 6.00 Weight (Pounds): 120 General Appearance: no apparent distress, cachetic, thin Cardiovascular: normal rate Respiratory/Chest: normal breath sounds, no respiratory distress Abdominal Exam: normal bowel sounds, non tender, soft Extremities: non-tender Lashawn Mason N.P. Aug 01, 2017 12:26
--- NOTE | 2017-08-01 14:45 | Infectious Diseases Prog Note ---
Assessment/Plan Problems: (1) Fever Assessment & Plan: resolved, source? could be due to his left buttock pressure wounds , blood culture is negative so far , CXR didn't show any new infiltrates , UA is not suggestive of urine infection. stool for C diff is negative . will continue vancomycin and zosyn empiric coverage for now and order left buttock wound culture , continue Tylenol empirically. (2) Anoxic cerebral edema Assessment & Plan: with no significant improvement, has poor prognosis , has PEG placement as per family , was changed to DNR as per family request as of , he is still postural, spastic and unresponsive . (3) Dysphagia Assessment & Plan: he received permanent tube feeding for nutritional support , as per family request (4) Excessive salivation Assessment & Plan: watch out for aspiration, keep oral suctioning . keep head of bed elevated all time Subjective ROS Limited/Unobtainable: Yes Allergies: Coded Allergies: No Known Allergies (Unverified , 06/15/17) Subjective unresponsive , on high flow oxygen , postural and spastic in the lower extremities , doesn't follow commands , afebrile . he opens his eyes spontaneously on/off . doesn't track. had permanent PEG tube placed, has significant oral secretions Objective Vital Signs Last 24 Hour Vital Signs Date Time Temp Pulse Resp B/P (MAP) Pulse Ox O2 Delivery O2 Flow Rate FiO2 08/01/17 12:00 97.5 104 19 119/89 99 97.5 08/01/17 08:02 128/89 08/01/17 08:00 98.5 117 20 128/89 100 98.5 08/01/17 04:00 97.9 76 22 139/65 98 Room Air 97.9 08/01/17 00:00 99.1 111 20 130/84 100 Room Air 99.1 07/31/17 20:38 121/83 07/31/17 20:00 98.8 114 20 132/82 99 Room Air 98.8 07/31/17 19:05 99 Room Air 21 07/31/17 19:05 Room Air 21 07/31/17 16:00 98.1 113 19 121/83 100 98.1 Height (Feet): 5 Height (Inches): 6.00 Weight (Pounds): 120 General Appearance: WD/WN, no acute distress, cachetic HEENT: normocephalic, atraumatic, anicteric, mucous membranes moist, supple, no JVD, other - salivation Respiratory/Chest: chest wall non-tender, lungs clear, normal breath sounds, no respiratory distress, no accessory muscle use Cardiovascular: normal peripheral pulses, normal rate, regular rhythm, no gallop/murmur, no JVD Abdomen: normal bowel sounds, soft, non tender, no organomegaly, non distended , no mass, no scars Extremities: no cyanosis, no clubbing Skin: no rash, no lesions, no ulcers Neurologic/Psychiatric: unresponsiveness Lymphatic: no neck adenopathy, no groin adenopathy Microbiology Date/Time Source Procedure Growth Status 07/30/17 11:00 Blood Blood Culture - Preliminary NO GROWTH AFTER 24 HOURS Resulted 07/30/17 10:50 Blood Blood Culture - Preliminary NO GROWTH AFTER 24 HOURS Resulted 07/31/17 17:30 Stool Clostridium difficile Toxin Assay - Final Complete Laboratory Tests Test 07/31/17 16:40 08/01/17 09:30 White Blood Count 6.2 K/UL (4.8-10.8) Red Blood Count 2.85 M/UL (4.70-6.10) L Hemoglobin 9.1 G/DL (14.2-18.0) L Hematocrit 27.2 % (42.0-52.0) L Mean Corpuscular Volume 96 FL (80-99) Mean Corpuscular Hemoglobin 32.2 PG (27.0-31.0) H Mean Corpuscular Hemoglobin Concent 33.6 G/DL (32.0-36.0) Red Cell Distribution Width 11.5 % (11.6-14.8) L Platelet Count 196 K/UL (150-450) Mean Platelet Volume 8.4 FL (6.5-10.1) Neutrophils (%) (Auto) 63.3 % (45.0-75.0) Lymphocytes (%) (Auto) 13.6 % (20.0-45.0) L Monocytes (%) (Auto) 15.1 % (1.0-10.0) H Eosinophils (%) (Auto) 7.3 % (0.0-3.0) H Basophils (%) (Auto) 0.7 % (0.0-2.0) Sodium Level 142 MMOL/L (136-145) Potassium Level 3.8 MMOL/L (3.5-5.1) Chloride Level 104 MMOL/L (98-107) Carbon Dioxide Level 30 MMOL/L (21-32) Anion Gap 8 mmol/L (5-15) Blood Urea Nitrogen 17 mg/dL (7-18) Creatinine 0.5 MG/DL (0.55-1.30) L Estimat Glomerular Filtration Rate > 60 mL/min (>60) Glucose Level 161 MG/DL (74-106) H Calcium Level 9.6 MG/DL (8.5-10.1) Total Bilirubin 0.1 MG/DL (0.2-1.0) L Aspartate Amino Transf (AST/SGOT) 38 U/L (15-37) H Alanine Aminotransferase (ALT/SGPT) 44 U/L (12-78) Alkaline Phosphatase 85 U/L (46-116) Total Protein 6.6 G/DL (6.4-8.2) Albumin 2.4 G/DL (3.4-5.0) L Globulin 4.2 g/dL Albumin/Globulin Ratio 0.6 (1.0-2.7) L Vancomycin Level Trough 6.2 ug/mL (5.0-12.0) Current Medications Medications (Trade) Dose Ordered Sig/Conrado Route PRN Reason Start Time Stop Time Status Last Admin Dose Admin Acetaminophen (Tylenol) 500 mg Q6H PRN GT Mild Pain/Temp > 100.5 07/26/17 18:00 08/25/17 17:59 07/30/17 20:50 Clonidine HCl (Catapres Tab) 0.1 mg Q2H PRN GT SBP > 170mmHg 07/26/17 18:00 08/19/17 13:59 Collagenase (Santyl) 1 applic BEDTIME TOPIC 07/26/17 21:00 08/12/17 14:59 07/31/17 20:38 Dextrose/ Electrolytes 1,000 ml @ 75 mls/hr [id number] IV 07/26/17 18:00 08/07/17 14:59 08/01/17 08:00 Insulin Aspart (NovoLOG) Q6HR SUBQ 07/26/17 18:45 08/05/17 18:44 08/01/17 11:44 Insulin Detemir (Levemir) 30 units Q12HR SUBQ 07/31/17 09:00 08/30/17 08:59 08/01/17 08:05 Losartan Potassium (Cozaar) 50 mg EVERY 12 HOURS GT 07/26/17 21:00 08/19/17 20:59 07/31/17 20:38 Piperacillin Sod/ Tazobactam Sod 3.375 gm/Sodium Chloride 110 ml @ 27.5 mls/hr Q8HR@0000,0800,1600 IVPB 08/01/17 00:00 08/08/17 00:00 08/01/17 08:01 Vancomycin HCl (Vanco rx to dose) 1 ea DAILY PRN MISC Per rx protocol 07/30/17 21:15 08/29/17 21:14 Vancomycin HCl 1 gm/Dextrose 275 ml @ 183.708 mls/hr Q12HR@0600,1800 IVPB 08/01/17 18:00 08/06/17 17:59 Vancomycin/Sodium Chloride 250 ml @ 166.667 mls/hr Q12HR@1000,2200 IVPB 07/31/17 10:00 08/01/17 17:59 08/01/17 11:31 Saad Cummings M.D. Aug 01, 2017 14:45
[2017-08-01 16:00] VITALS: BP 127/79
--- NOTE | 2017-08-01 17:41 | Cardiac Electrophysiology PN ---
Assessment/Plan Assessment/Plan 1. Troponin leak due to renal failure. EF 60%. 2. Sinus tachy due to sepsis. No fib or SVT. 3. S/P Respiratory failure, S/P Terminal extubation. On oxygen. 4. S/P Pneumonia off abx 5. Pancreatitis. 6. ARF.Resolved 7. Marijuana use. 8. Suspect diffuse cerebral anoxia and edema with decorticate rigidity 9. Alcohol withdrawal. 10. Hypernatremia. Resolved 11. Dysphagia.S/P PEG 12. DNR, DNI 13. Placement pending. REFUGIO RN Subjective Subjective No change.GT feeding on going with no significant.residual. Placement pending. Objective Last 24 Hour Vital Signs Date Time Temp Pulse Resp B/P (MAP) Pulse Ox O2 Delivery O2 Flow Rate FiO2 08/01/17 16:00 97.7 106 24 127/79 99 97.7 08/01/17 12:00 97.5 104 19 119/89 99 97.5 08/01/17 08:02 128/89 08/01/17 08:00 98.5 117 20 128/89 100 98.5 08/01/17 04:00 97.9 76 22 139/65 98 Room Air 97.9 08/01/17 00:00 99.1 111 20 130/84 100 Room Air 99.1 07/31/17 20:38 121/83 07/31/17 20:00 98.8 114 20 132/82 99 Room Air 98.8 07/31/17 19:05 99 Room Air 21 07/31/17 19:05 Room Air 21 Intake and Output 07/31/17 08/01/17 19:00 07:00 Intake Total 1915.000 ml 960.0 ml Output Total 850 ml 350 ml Balance 1065.000 ml 610.0 ml Free Water 200 ml IV Total 1000.000 ml 410.0 ml Tube Feeding 715 ml 550 ml Output Urine Total 850 ml 350 ml # Bowel Movements 15 2 Laboratory Tests Test 08/01/17 09:30 Vancomycin Level Trough 6.2 ug/mL (5.0-12.0) Microbiology Date/Time Source Procedure Growth Status 07/30/17 11:00 Blood Blood Culture - Preliminary NO GROWTH AFTER 24 HOURS Resulted 07/30/17 10:50 Blood Blood Culture - Preliminary NO GROWTH AFTER 24 HOURS Resulted 2/20/18 17:30 Stool Clostridium difficile Toxin Assay - Final Complete Objective HEAD AND NECK: No JVD. LUNGS: Clear. CARDIOVASCULAR: Tachy S1 and S2 with no gallop or murmur. ABDOMEN: PEG in place EXTREMITIES: No pitting edema. ALBERT ROWAN Aug 01, 2017 17:41
[2017-08-01] MEDS: Vancomycin 1gm in D5W 275ml IVPB SCH (17:42)
--- NOTE | 2017-08-01 18:12 | Nephrology Progress Note ---
Assessment/Plan Problem List: (1) Hypernatremia Assessment: Improved (2) Hypokalemia Assessment: corrected (3) Fever (4) Acidosis (5) Respiratory distress (6) Pancreatitis (7) Elevated troponin (8) Alcohol withdrawal (9) Pneumonia (10) Sepsis (11) Cardiopulmonary arrest (12) Metabolic acidosis (13) DKA (diabetic ketoacidosis) (14) Renal failure Assessment: Improved (15) DNR (do not resuscitate) Plan Continue current treatment plan D5W+KCL@ 75cc/hr Monitor temp Suspect diffuse cerebral anoxia and edema with decorticate rigidity per Dr Cano. Monitor lytes, correct prn Monitor neuro status, f/u with neurology rec G-tube feeding per GI Strict glycemic control Monitor renal function on current abx Abx per ID Monitor intake and output Continue carpenter AM labs DC plan Subjective ROS Limited/Unobtainable: Yes Subjective Seen in medsurg unit, eyes open, does not track, in no apparent distress Objective Objective Last 24 Hour Vital Signs Date Time Temp Pulse Resp B/P (MAP) Pulse Ox O2 Delivery O2 Flow Rate FiO2 08/01/17 16:00 97.7 106 24 127/79 99 97.7 08/01/17 12:00 97.5 104 19 119/89 99 97.5 08/01/17 08:02 128/89 08/01/17 08:00 98.5 117 20 128/89 100 98.5 08/01/17 04:00 97.9 76 22 139/65 98 Room Air 97.9 08/01/17 00:00 99.1 111 20 130/84 100 Room Air 99.1 07/31/17 20:38 121/83 07/31/17 20:00 98.8 114 20 132/82 99 Room Air 98.8 07/31/17 19:05 99 Room Air 21 07/31/17 19:05 Room Air 21 Intake and Output 07/31/17 08/01/17 19:00 07:00 Intake Total 1915.000 ml 960.0 ml Output Total 850 ml 350 ml Balance 1065.000 ml 610.0 ml Free Water 200 ml IV Total 1000.000 ml 410.0 ml Tube Feeding 715 ml 550 ml Output Urine Total 850 ml 350 ml # Bowel Movements 15 2 Laboratory Tests 08/01/17 09:30: Vancomycin Level Trough 6.2 Height (Feet): 5 Height (Inches): 6.00 Weight (Pounds): 120 General Appearance: no apparent distress Cardiovascular: normal rate, no JVD Respiratory/Chest: decreased breath sounds Abdomen: soft, other - PEG Genitourinary/Rectal: other - CARPENTER Extremities: trace edema Neurologic: unresponsive Hannah Johnson N.P. Aug 01, 2017 18:12
[2017-08-01 20:00] VITALS: BP 127/85
[2017-08-02 00:02] VITALS: BP 122/79
[2017-08-02 04:40] VITALS: BP 125/86
[2017-08-02] MEDS: Vancomycin 1gm in D5W 275ml IVPB SCH (05:29)
[2017-08-02] MEDS: NovoLOG Insulin Flexpen SUBQ SCH ×3 (05:29→18:11)
[2017-08-02 08:00] VITALS: BP 124/88
[2017-08-02] MEDS: Losartan 50mg tab GT SCH (08:46)
[2017-08-02] MEDS: Piperacillin/Tazobactam 3.375 GM in NS 110 ML IVPB SCH ×2 (08:47→16:10)
[2017-08-02] MEDS: Levemir Flexpen SUBQ SCH (08:52)
--- NOTE | 2017-08-02 09:35 | Pulmonology Progress Note ---
Assessment/Plan Assessment/Plan IMPRESSION: 1. Respiratory failure; extubated 2. Cannabis usage. 3. Diabetic ketoacidosis. 4. Troponin leak. 5. Tachycardia. 6. Anoxic brain injury DISCUSSION: Continue present management and care. Now on room air Continue oral airway prn/suctioning Subjective Interval Events: none Constitutional: Reports: no symptoms HEENT: Repors: no symptoms Respiratory: Reports: no symptoms Cardiovascular: Reports: no symptoms Allergies: Coded Allergies: No Known Allergies (Unverified , 06/15/17) Objective Last 24 Hour Vital Signs Date Time Temp Pulse Resp B/P (MAP) Pulse Ox O2 Delivery O2 Flow Rate FiO2 08/02/17 08:46 124/88 08/02/17 08:00 98.1 107 21 124/88 100 98.1 08/02/17 04:40 98.7 105 20 125/86 98 98.7 08/02/17 04:40 Room Air 08/02/17 00:07 Room Air 08/02/17 00:02 98.6 97 19 122/79 98 98.6 08/01/17 20:40 127/85 08/01/17 20:00 98.8 94 18 127/85 98 98.8 08/01/17 20:00 Room Air 08/01/17 19:59 Room Air 08/01/17 19:59 98 Room Air 21 08/01/17 16:00 97.7 106 24 127/79 99 97.7 08/01/17 12:00 97.5 104 19 119/89 99 97.5 Intake and Output 08/01/17 08/02/17 19:00 07:00 Intake Total 860 ml 1600.000 ml Output Total 650 ml Balance 860 ml 950.000 ml Free Water 200 ml 200 ml IV Total 795.000 ml Tube Feeding 660 ml 605 ml Output Urine Total 650 ml # Voids 1 # Bowel Movements 1 General Appearance: no acute distress HEENT: normocephalic Respiratory/Chest: chest wall non-tender, lungs clear Cardiovascular: normal peripheral pulses, normal rate Microbiology Date/Time Source Procedure Growth Status 07/30/17 11:00 Blood Blood Culture - Preliminary NO GROWTH AFTER 48 HOURS Resulted 07/30/17 10:50 Blood Blood Culture - Preliminary NO GROWTH AFTER 48 HOURS Resulted 07/31/17 17:30 Stool Clostridium difficile Toxin Assay - Final Complete 08/01/17 15:00 Buttock Left Gram Stain - Final Resulted 08/01/17 15:00 Buttock Left Wound Culture Pending Resulted Current Medications Medications (Trade) Dose Ordered Sig/Conrado Route PRN Reason Start Time Stop Time Status Last Admin Dose Admin Acetaminophen (Tylenol) 500 mg Q6H PRN GT Mild Pain/Temp > 100.5 07/26/17 18:00 08/25/17 17:59 07/30/17 20:50 Clonidine HCl (Catapres Tab) 0.1 mg Q2H PRN GT SBP > 170mmHg 07/26/17 18:00 08/19/17 13:59 Collagenase (Santyl) 1 applic BEDTIME TOPIC 07/26/17 21:00 08/12/17 14:59 08/01/17 20:40 Dextrose/ Electrolytes 1,000 ml @ 75 mls/hr [id number] IV 07/26/17 18:00 08/07/17 14:59 08/01/17 08:00 Insulin Aspart (NovoLOG) Q6HR SUBQ 07/26/17 18:45 08/05/17 18:44 08/02/17 05:29 Insulin Detemir (Levemir) 30 units Q12HR SUBQ 07/31/17 09:00 08/30/17 08:59 08/02/17 08:52 Losartan Potassium (Cozaar) 50 mg EVERY 12 HOURS GT 07/26/17 21:00 08/19/17 20:59 07/31/17 20:38 Piperacillin Sod/ Tazobactam Sod 3.375 gm/Sodium Chloride 110 ml @ 27.5 mls/hr Q8HR@0000,0800,1600 IVPB 08/01/17 00:00 08/08/17 00:00 08/02/17 08:47 Vancomycin HCl (Vanco rx to dose) 1 ea DAILY PRN MISC Per rx protocol 07/30/17 21:15 08/29/17 21:14 Vancomycin HCl 1 gm/Dextrose 275 ml @ 183.708 mls/hr Q12HR@0600,1800 IVPB 08/01/17 18:00 08/06/17 17:59 08/02/17 05:29 Paulo Floyd MD Aug 02, 2017 09:35
[2017-08-02] MEDS: D5W w/KCl 20mEq 1,000 ML IV SCH (10:18)
--- NOTE | 2017-08-02 11:30 | GI Progress Note ---
Assessment/Plan Problems: (1) Anoxic cerebral edema ICD Codes: G93.6 - Cerebral edema; R09.02 - Hypoxemia SNOMED: 3651695, 275918178 (2) Transaminitis ICD Codes: R74.0 - Nonspecific elevation of levels of transaminase and lactic acid dehydrogenase [LDH] SNOMED: 671032467, 673112418 (3) Alcohol withdrawal ICD Codes: F10.239 - Alcohol dependence with withdrawal, unspecified SNOMED: 896338300 (4) Pancreatitis ICD Codes: K85.90 - Acute pancreatitis without necrosis or infection, unspecified SNOMED: 31921115 Status: stable Status Narrative Discussed with Dr. Rico. Assessment/Plan s/p PEG GTFs per RD electrolyte correction fu labs dc planning Subjective Subjective limited Objective Last 24 Hour Vital Signs Date Time Temp Pulse Resp B/P (MAP) Pulse Ox O2 Delivery O2 Flow Rate FiO2 08/02/17 08:46 124/88 08/02/17 08:00 98.1 107 21 124/88 100 98.1 08/02/17 04:40 98.7 105 20 125/86 98 98.7 08/02/17 04:40 Room Air 08/02/17 00:07 Room Air 08/02/17 00:02 98.6 97 19 122/79 98 98.6 08/01/17 20:40 127/85 08/01/17 20:00 98.8 94 18 127/85 98 98.8 08/01/17 20:00 Room Air 08/01/17 19:59 Room Air 08/01/17 19:59 98 Room Air 21 08/01/17 16:00 97.7 106 24 127/79 99 97.7 08/01/17 12:00 97.5 104 19 119/89 99 97.5 Intake and Output 08/01/17 08/02/17 19:00 07:00 Intake Total 860 ml 1655.000 ml Output Total 650 ml Balance 860 ml 1005.000 ml Free Water 200 ml 200 ml IV Total 795.000 ml Tube Feeding 660 ml 660 ml Output Urine Total 650 ml # Voids 1 # Bowel Movements 1 Microbiology Date/Time Source Procedure Growth Status 08/01/17 15:00 Buttock Left Gram Stain - Final Resulted 08/01/17 15:00 Buttock Left Wound Culture Pending Resulted Height (Feet): 5 Height (Inches): 6.00 Weight (Pounds): 120 General Appearance: cachetic, thin Cardiovascular: normal rate Respiratory/Chest: normal breath sounds Abdominal Exam: soft, GT site - c/d/i Lashawn Mason N.P. Aug 02, 2017 11:30
[2017-08-02 11:52] VITALS: BP 128/76
--- NOTE | 2017-08-02 14:08 | Infectious Diseases Prog Note ---
Assessment/Plan Problems: (1) Fever Assessment & Plan: resolved, source? could be due to his left buttock pressure wounds , blood culture is negative so far , CXR didn't show any new infiltrates , UA is not suggestive of urine infection. stool for C diff is negative . will continue vancomycin and zosyn empiric coverage for now pending left buttock wound culture , continue Tylenol empirically. (2) Anoxic cerebral edema Assessment & Plan: with no significant improvement, has poor prognosis , has PEG placement as per family , was changed to DNR as per family request as of , he is still postural, spastic and unresponsive . (3) Dysphagia Assessment & Plan: he received permanent tube feeding for nutritional support , as per family request (4) Excessive salivation Assessment & Plan: watch out for aspiration, keep oral suctioning . keep head of bed elevated all time Subjective ROS Limited/Unobtainable: Yes Allergies: Coded Allergies: No Known Allergies (Unverified , 06/15/17) Subjective unresponsive, on high flow oxygen, postural and spastic in the lower extremities , doesn't follow commands, afebrile . he opens his eyes spontaneously on/off . doesn't track. had permanent PEG tube placed, has significant oral secretions. Objective Vital Signs Last 24 Hour Vital Signs Date Time Temp Pulse Resp B/P (MAP) Pulse Ox O2 Delivery O2 Flow Rate FiO2 08/02/17 11:52 97.9 109 19 128/76 99 97.9 08/02/17 08:46 124/88 08/02/17 08:00 98.1 107 21 124/88 100 98.1 08/02/17 04:40 98.7 105 20 125/86 98 98.7 08/02/17 04:40 Room Air 08/02/17 00:07 Room Air 08/02/17 00:02 98.6 97 19 122/79 98 98.6 08/01/17 20:40 127/85 08/01/17 20:00 98.8 94 18 127/85 98 98.8 08/01/17 20:00 Room Air 08/01/17 19:59 Room Air 08/01/17 19:59 98 Room Air 21 08/01/17 16:00 97.7 106 24 127/79 99 97.7 Height (Feet): 5 Height (Inches): 6.00 Weight (Pounds): 120 General Appearance: WD/WN, no acute distress HEENT: normocephalic, atraumatic, anicteric, mucous membranes moist, PERRL Respiratory/Chest: chest wall non-tender, lungs clear, normal breath sounds, no respiratory distress, no accessory muscle use Cardiovascular: normal peripheral pulses, normal rate, regular rhythm, no gallop/murmur, no JVD Abdomen: normal bowel sounds, soft, non tender, no organomegaly, non distended , no mass, no scars Extremities: no cyanosis, no clubbing Skin: no rash, no lesions, ulcers - left buttock with whitish exudate Neurologic/Psychiatric: unresponsiveness Microbiology Date/Time Source Procedure Growth Status 07/31/17 17:30 Stool Clostridium difficile Toxin Assay - Final Complete 08/01/17 15:00 Buttock Left Gram Stain - Final Resulted 08/01/17 15:00 Buttock Left Wound Culture Pending Resulted Current Medications Medications (Trade) Dose Ordered Sig/Conrado Route PRN Reason Start Time Stop Time Status Last Admin Dose Admin Acetaminophen (Tylenol) 500 mg Q6H PRN GT Mild Pain/Temp > 100.5 07/26/17 18:00 08/25/17 17:59 07/30/17 20:50 Clonidine HCl (Catapres Tab) 0.1 mg Q2H PRN GT SBP > 170mmHg 07/26/17 18:00 08/19/17 13:59 Collagenase (Santyl) 1 applic BEDTIME TOPIC 07/26/17 21:00 08/12/17 14:59 08/01/17 20:40 Dextrose/ Electrolytes 1,000 ml @ 75 mls/hr [id number] IV 07/26/17 18:00 08/07/17 14:59 08/02/17 10:18 Insulin Aspart (NovoLOG) Q6HR SUBQ 07/26/17 18:45 08/05/17 18:44 08/02/17 12:06 Insulin Detemir (Levemir) 30 units Q12HR SUBQ 07/31/17 09:00 08/30/17 08:59 08/02/17 08:52 Losartan Potassium (Cozaar) 50 mg EVERY 12 HOURS GT 07/26/17 21:00 08/19/17 20:59 07/31/17 20:38 Piperacillin Sod/ Tazobactam Sod 3.375 gm/Sodium Chloride 110 ml @ 27.5 mls/hr Q8HR@0000,0800,1600 IVPB 08/01/17 00:00 08/08/17 00:00 08/02/17 08:47 Vancomycin HCl (Vanco rx to dose) 1 ea DAILY PRN MISC Per rx protocol 07/30/17 21:15 08/29/17 21:14 Vancomycin HCl 1 gm/Dextrose 275 ml @ 183.708 mls/hr Q12HR@0600,1800 IVPB 08/01/17 18:00 08/06/17 17:59 08/02/17 05:29 Saad Cummings M.D. Aug 02, 2017 14:08
[2017-08-02] MEDS ORDERED: Tubing IV Secondary IV ONE (15:25)
[2017-08-02 15:58] VITALS: BP 117/76
--- NOTE | 2017-08-02 18:27 | Cardiac Electrophysiology PN ---
Assessment/Plan Assessment/Plan 1. Troponin leak due to renal failure. EF 60%. 2. Sinus tachy due to sepsis. No fib or SVT. 3. S/P Respiratory failure, S/P Terminal extubation. On oxygen. 4. S/P Pneumonia off abx 5. Pancreatitis. 6. ARF.Resolved 7. Marijuana use. 8. Suspect diffuse cerebral anoxia and edema with decorticate rigidity 9. Alcohol withdrawal. 10. Hypernatremia. Resolved 11. Dysphagia.S/P PEG 12. DNR, DNI DW RN DC home tonight with home health Subjective Subjective No change. GT feeding on going. Will be going home tonight with home health Objective Last 24 Hour Vital Signs Date Time Temp Pulse Resp B/P (MAP) Pulse Ox O2 Delivery O2 Flow Rate FiO2 08/02/17 15:58 98.1 108 19 117/76 99 98.1 08/02/17 11:52 97.9 109 19 128/76 99 97.9 08/02/17 08:46 124/88 08/02/17 08:00 98.1 107 21 124/88 100 98.1 08/02/17 04:40 98.7 105 20 125/86 98 98.7 08/02/17 04:40 Room Air 08/02/17 00:07 Room Air 08/02/17 00:02 98.6 97 19 122/79 98 98.6 08/01/17 20:40 127/85 08/01/17 20:00 98.8 94 18 127/85 98 98.8 08/01/17 20:00 Room Air 08/01/17 19:59 Room Air 08/01/17 19:59 98 Room Air 21 Intake and Output 08/01/17 08/02/17 19:00 07:00 Intake Total 860 ml 1655.000 ml Output Total 650 ml Balance 860 ml 1005.000 ml Free Water 200 ml 200 ml IV Total 795.000 ml Tube Feeding 660 ml 660 ml Output Urine Total 650 ml # Voids 1 # Bowel Movements 1 Microbiology Date/Time Source Procedure Growth Status 07/31/17 17:30 Stool Clostridium difficile Toxin Assay - Final Complete 08/01/17 15:00 Buttock Left Gram Stain - Final Resulted 08/01/17 15:00 Buttock Left Wound Culture Pending Resulted Objective HEAD AND NECK: No JVD. LUNGS: Clear. CARDIOVASCULAR: Tachy S1 and S2 with no gallop or murmur. ABDOMEN: PEG in place EXTREMITIES: No pitting edema. ALBERT ROWAN Aug 02, 2017 18:27
[2017-08-02 19:40] VITALS: BP 123/83
--- NOTE | 2017-08-05 23:15 | Discharge Summary ---
Discharge Summary Hospital Course Date of Admission Jun 15, 2017 at 22:58 Date of Discharge Aug 02, 2017 at 20:05 Admitting Diagnosis DKA HPI Reza Andrade is a 32 year old male who was admitted on Jun 15, 2017 at 22:58 for Diabetic Ketoacidosis Hospital Course [id number] Discharge Discharge Disposition Patient was discharged to Home with Home Health(06) Discharge Diagnoses: Cherelle Clements NP Aug 05, 2017 23:15
--- NOTE | 2017-08-06 02:00 | Discharge Summary 2 SIG ---
DATE OF ADMISSION: 06/15/2017 DATE OF DISCHARGE: 08/02/2017 CONSULTANTS: 1. David Arrington M.D. 2. Saad Cummings M.D. 3. Ricardo Rico M.D. 4. Paulo Floyd M.D. 5. Leon Currie M.D. BRIEF HOSPITAL COURSE: The patient is a 32-year-old male with medical history of diabetes mellitus, presented to ED for altered mental status. History was obtained from the patient's family member. The patient was not feeling well two days prior to admission. Paramedics were then called in. On evaluation at ED, blood work showed leukocytosis, WBC was 15. Glucose level was 1062. Liver function tests were elevated. Lipase was 4514. Urine was positive for ketones, 4+ glucose, and 2+ protein. Urine toxicology was positive for marijuana. Sodium level was 119, potassium was 6.2. Troponin was 0.076. Chest x-ray done showed bilateral infiltrates. He was started on insulin drip and was started empirically on Zosyn and vancomycin. He went bradycardic and went in asystole. He was orally intubated and was admitted to ICU for diabetic ketoacidosis, pneumonia with possible sepsis, and acute pancreatitis due to alcohol abuse. He was kept on NPO. Amylase, lipase, and liver functions were monitored. He was followed by Infectious Disease specialist and was continued on empiric antibiotics pending culture results. He was continued on insulin drip. He was given thiamine and was placed on alcohol withdrawal precautions. The patient had been unresponsive. Head CT showed diffuse cerebral anoxia and edema. He also had an EEG done on 06/22/2017 that showed diffuse slowing with predominantly delta waves. Insulin drip was eventually discontinued and the patient was placed on sliding scale insuliln and Levemir. He continued to have anoxic encephalopathy and liver functions and amylase and lipase continued to be elevated. He was continued on antibiotics. Sputum culture was not sent. Blood culture did not isolate any growth. Sputum culture showed normal upper respiratory mohit. Per family wishes, the patient was placed on terminal extubation on 06/27/2017. The patient was placed on comfort care and was started on morphine drip. He was given respiratory supplements. On 06/30/2017, family decided to reverse code. The patient was then placed on Full Code and NG-tube was restarted. He continued to require O2 supplementation, initially was on a nonrebreather mask. The patient would eventually need a PEG, however, respiratory status needed to be stabilized. He was transferred back to [facility]. Vancomycin was eventually discontinued due to rising creatinine. The patient was continued on Zosyn and Ceftaroline. Post reversal of care, the patient was restarted on antibiotics for possible aspiration pneumonia due to altered mental status. Sputum culture showed growth of Gram-negative rods. Culture showed growth of Acinetobacter baumannii. Ceftaroline was discontinued and was switched to ceftazidime. Chest x-ray monitored. He eventually finished two weeks of ceftazidime was observed off antibiotic treatment. He also eventually had a PEG tube done by Dr. Rico on 07/17/2017. He was started on tube feedings. Post PEG placement, discharge planning was discussed with family, the patient for possible discharge to SNF versus discharge home. He developed episodes of fever. Surveillance cultures were done. Blood culture did not isolate any growth. Urine culture, no growth. C. difficile was negative. He eventually defervesced. He had elevated troponin level from admission probably due to troponin leak due to renal failure. Echocardiogram showed EF of 60%. There was no fibrillation or SVT noted. He had electrolyte imbalance and was adjusted with IV fluids. He was eventually taken off O2 support and was saturating well on room air. He was tolerating diet by tube feeding well. Amylase and lipase downtrended. He was eventually discharged home. DMEs were provided prior to discharge home. FINAL DIAGNOSES: 1. Sepsis. 2. Anoxic cerebral encephalopathy with cerebral edema. 3. Acute respiratory failure requiring intubation. 4. Dysphagia, status post percutaneous endoscopic gastrostomy placement. 5. Hypernatremia. 6. Hypokalemia. 7. Acute pancreatitis. 8. Elevated troponin, secondary to renal failure. 9. Alcohol withdrawal. 10. Pneumonia. 11. Status post cardiopulmonary arrest. 12. Acute diabetes ketoacidosis, resolved. 13. Acute kidney injury. 14. Cannabis use. 15. Elevated liver transaminitis. 16. Shock liver. 17. Pneumonia due to Acinetobacter. 18. Multiple deep tissue injury pressure ulcers. DISPOSITION: The patient was discharged home with home health. DISCHARGE MEDICATIONS: Refer to medication list. DISCHARGE INSTRUCTIONS: Follow up with PCP in a week. Gopi Matson M.D. I have been assigned to dictate discharge summary on this account and I was not involved in the patient's management. Cherelle Clements N.P. DR: Magdalena JOB#: [id number] CC: [email or web address]
--- NOTE | 2017-08-07 14:50 | Cardiology Report ---
APPROVED REPORT EKG Measurement Heart [id number] Sinus tachycardia Otherwise normal ECG
== END 2017-08-02 20:05 | disposition home health service (06) | DRG 870 ==
LOC: EDBD 20:27 → EMR 22:57 → 2E 22:58 → EDBEDREQSVC 06-16 09:19 → EDBEDREQ 06-16 10:35 → 2E 06-16 12:11 → ICU 06-16 15:33 → 4E 06-27 22:15 → ICU 06-30 08:57 → 2W 06-30 21:52 → 4W 07-26 17:36
PROC: 5A12012 Performance of Cardiac Output, Single, Manual (ICD-10-PCS; principal; 2017-06-16)
PROC: 5A1955Z Respiratory Ventilation, Greater than 96 Consecutive Hours (ICD-10-PCS; principal; 2017-06-16)
PROC: 0BH17EZ Insertion of Endotracheal Airway into Trachea, Via Natural or Artificial Opening (ICD-10-PCS; principal; 2017-06-16)
PROC: 0DH63UZ Insertion of Feeding Device into Stomach, Percutaneous Approach (ICD-10-PCS; 2017-07-17 12:33)
DX: A41.9 Sepsis, unspecified organism (principal); J96.01 Acute respiratory failure with hypoxia; K72.00 Acute and subacute hepatic failure without coma; G93.6 Cerebral edema; I46.9 Cardiac arrest, cause unspecified; E10.10 Type 1 diabetes mellitus with ketoacidosis without coma; G93.1 Anoxic brain damage, not elsewhere classified; J15.6 Pneumonia due to other Gram-negative bacteria; K85.20 Alcohol induced acute pancreatitis without necrosis or infection; K76.7 Hepatorenal syndrome; E87.1 Hypo-osmolality and hyponatremia; N17.9 Acute kidney failure, unspecified; F10.230 Alcohol dependence with withdrawal, uncomplicated; E87.0 Hyperosmolality and hypernatremia; R13.10 Dysphagia, unspecified; Z79.4 Long term (current) use of insulin; F12.90 Cannabis use, unspecified, uncomplicated; R00.0 Tachycardia, unspecified; Z66 Do not resuscitate; K11.7 Disturbances of salivary secretion; E87.6 Hypokalemia
CPT/HCPCS: 36415; 36600; 70450; 71045; 74018; 74176; 80048; 80053; 80061; 80076; 80202; 80307; 81001; 81003; 82140; 82150; 82270; 82550; 82553; 82607; 82728; 82746; 82803; 82962; 83036; 83540; 83550; 83605; 83690; 83735; 84100; 84439; 84443; 84484; 85007; 85025; 85044; 85610; 85730; 87040; 87070; 87081; 87086; 87181; 87205; 87324; 92950; 93005; 93306; 93970; 94002; 94003; 94150; 94664; 94760; 95819; 99291; J0171; J0712; J1815; J2405; J8499; S0077; S5561